=== PATIENT | female | born 1940 | race Caucasian/White ===

== ENCOUNTER 2016-09-29 17:07 | Inpatient (IN) | payer MEDICARE ==
[2016-09-29] MEDS ORDERED: IPRATROPIUM-ALBUTEROL 3 ML NEB INHALATION STA (17:40)
--- NOTE | 2016-09-29 17:40 | ED ---
URI HPI - General Chief Complaint: Upper Respiratory Infection Stated Complaint: weakness Time Seen by Provider: 09/29/16 17:29 Source: patient, family Mode of arrival: wheelchair Limitations: no limitations - History of Present Illness Initial Comments: Patient is a 75-year-old female past history diabetes, Parkinson's disease, hypertension presenting with cough and shortness of breath for the past 4 days. Patient denies any sputum production. Patient lives with daughter who is a smoker in the basement. Patient has no history of lung disease including asthma or COPD. No history of smoking. Patient denies fever, chills, chest pain, nausea, vomiting, diarrhea. Patient denies history of DVT/PE, recent travel/trauma/surgery. Patient denies history of cancer or estrogen supplement. Patient saw her PCP 3 days ago who started her on a Z-Jason and cough syrup. Patient is not getting better so follow-up in the ER. - Related Data Home Medications Medication Instructions Recorded Confirmed Azithromycin [Zithromax Z-pack] 0 mg PO DIRECTED 09/29/16 09/29/16 Benazepril [Lotensin] 10 mg PO DAILY 09/29/16 09/29/16 Gabapentin [Neurontin] 300 mg PO BID 09/29/16 09/29/16 Levothyroxine Sodium [Synthroid] 150 mcg PO DAILY 09/29/16 09/29/16 Metoprolol Tartrate 25 mg PO BID 09/29/16 09/29/16 Naproxen [Naprosyn] 375 mg PO Q12HR 09/29/16 09/29/16 Simvastatin [Zocor] 20 mg PO HS 09/29/16 09/29/16 Zolpidem [Ambien] 5 mg PO HS PRN 09/29/16 09/29/16 glipiZIDE [Glucotrol] 5 mg PO BID 09/29/16 09/29/16 metFORMIN HCL [metFORMIN HCL ER] 1,000 mg PO BID 09/29/16 09/29/16 rOPINIRole HCL [Requip] 1 mg PO TID 09/29/16 09/29/16 Allergies Allergy/AdvReac Type Severity Reaction Status Date / Time No Known Allergies Allergy Verified 09/29/16 18:00 Review of Systems ROS Statement: Those systems with pertinent positive or pertinent negative responses have been documented in the HPI. Constitutional: No fever and no chills. HENT: No congestion, no rhinorrhea and no sore throat. Eyes: No discharge and no redness. Respiratory: +cough and +shortness of breath. Cardiovascular: No chest pain and no palpitations. Gastrointestinal: No nausea, no vomiting, no abdominal pain and no diarrhea. Genitourinary: No dysuria and no hematuria. Musculoskeletal: No back pain and no arthralgias. Skin: No pallor and no rash. Neurological: No dizziness and No headaches. ROS Other: All systems not noted in ROS Statement are negative. Past Medical History Past Medical History: Diabetes Mellitus, Hypertension Additional Past Medical History / Comment(s): parkinsons, neuropathy History of Any Multi-Drug Resistant Organisms: None Reported Additional Past Surgical History / Comment(s): valve replacement, bilateral cataract Past Psychological History: No Psychological Hx Reported Smoking Status: Never smoker Past Alcohol Use History: None Reported Past Drug Use History: None Reported General Exam - General Exam Comments Initial Comments: Constitutional: Patient appears well-developed and well-nourished. No distress. Head: Normocephalic and atraumatic. Eyes: Conjunctivae and EOM are normal. Right eye exhibits no discharge. Left eye exhibits no discharge. No scleral icterus. Neck: Normal range of motion. Neck supple. Cardiovascular: Normal rate and regular rhythm. No murmur heard. Pulmonary/Chest: Effort normal and breath sounds normal. No respiratory distress. +wheezes. Abdominal: Soft. No distension. There is no tenderness. There is no rebound and no guarding. Musculoskeletal: Normal range of motion. No edema or tenderness. Neurological: Patient alert and oriented to person, place, and time. Skin: Skin is warm and dry. Not diaphoretic. Nursing notes and vitals reviewed. Limitations: no limitations Course Vital Signs 09/29/16 09/29/16 09/29/16 17:18 17:24 18:15 Temperature 98.4 F Pulse Rate 79 80 Respiratory 20 Rate Blood Pressure 157/70 O2 Sat by Pulse 91 L 95 Oximetry 09/29/16 09/29/16 19:09 19:12 Temperature Pulse Rate 82 84 Respiratory 16 Rate Blood Pressure 149/68 O2 Sat by Pulse 91 L 100 Oximetry - Reevaluation(s) Reevaluation #1: 09/29/16 17:47 Patient ambulatory in the hallway with pulse ox was 95% on room air. Reevaluation #2: 09/29/16 18:38 Patient given breathing treatments and on auscultation right lower lobe is now having crackles. Blood cultures, CBC, BMP, lactic acid, flu ordered and nurse updated. Medical Decision Making - Medical Decision Making Patient is a 75-year-old female with history of diabetes, Parkinson's disease, hypertension presenting with shortness of breath and cough for the past 4 days. Patient was started on azithromycin by her PCP 3 days ago and is not improving. Patient was ambulated in the hallway with pulse ox of 95%. Patient was wheezing on examination and with breathing treatments - breath sounds were then coarse crackles bilateral. CBC is without leukocytosis. BMP shows an elevated BUN of 27. Influenza A is positive. Chest x-ray shows bilateral patchy infiltrates. Patient was started on Levaquin and Tamiflu. Patient was resting comfortably in bed. Course of stay improved and requires hospitalization for CURB-65 score of 2 and failed outpatient treatment. Denies pain. Discussed physical exam and diagnostic tests with patient. Questions answered and patient is agreeable to staying in the hospital. Discussed H&P and pertinent diagnostic tests with admitting physician who agrees with plan and accepts admission of patient. - Lab Data Result diagrams: 09/29/16 19:10 09/29/16 18:50 Lab Results 09/29/16 09/29/16 09/29/16 Range/Units 18:50 18:50 18:50 WBC (3.8-10.6) k/uL RBC (3.80-5.40) m/uL Hgb (11.4-16.0) gm/dL Hct (34.0-46.0) % MCV (80.0-100.0) fL MCH (25.0-35.0) pg MCHC (31.0-37.0) g/dL RDW (11.5-15.5) % Plt Count (150-450) k/uL Neutrophils % % Lymphocytes % % Monocytes % % Eosinophils % % Basophils % % Neutrophils # (1.3-7.7) k/uL Lymphocytes # (1.0-4.8) k/uL Monocytes # (0-1.0) k/uL Eosinophils # (0-0.7) k/uL Basophils # (0-0.2) k/uL Sodium 140 (137-145) mmol/L Potassium 5.0 (3.5-5.1) mmol/L Chloride 105 (98-107) mmol/L Carbon Dioxide 25 (22-30) mmol/L Anion Gap 10 mmol/L BUN 27 H (7-17) mg/dL Creatinine 0.80 (0.52-1.04) mg/dL Est GFR (MDRD) Af Amer >60 (>60 ml/min/1.73 sqM) Est GFR (MDRD) Non-Af >60 (>60 ml/min/1.73 sqM) Glucose 166 H (74-99) mg/dL Plasma Lactic Acid Wild 1.3 (0.7-2.0) mmol/L Calcium 9.1 (8.4-10.2) mg/dL Influenza Type A RNA Detected H (Not Detectd) Influenza Type B (PCR) Not Detected (Not Detectd) 09/29/16 Range/Units 19:10 WBC 5.7 (3.8-10.6) k/uL RBC 3.87 (3.80-5.40) m/uL Hgb 11.6 (11.4-16.0) gm/dL Hct 35.8 (34.0-46.0) % MCV 92.5 (80.0-100.0) fL MCH 29.9 (25.0-35.0) pg MCHC 32.3 (31.0-37.0) g/dL RDW 13.1 (11.5-15.5) % Plt Count 155 (150-450) k/uL Neutrophils % 51 % Lymphocytes % 35 % Monocytes % 8 % Eosinophils % 1 % Basophils % 0 % Neutrophils # 2.9 (1.3-7.7) k/uL Lymphocytes # 2.0 (1.0-4.8) k/uL Monocytes # 0.5 (0-1.0) k/uL Eosinophils # 0.1 (0-0.7) k/uL Basophils # 0.0 (0-0.2) k/uL Sodium (137-145) mmol/L Potassium (3.5-5.1) mmol/L Chloride (98-107) mmol/L Carbon Dioxide (22-30) mmol/L Anion Gap mmol/L BUN (7-17) mg/dL Creatinine (0.52-1.04) mg/dL Est GFR (MDRD) Af Amer (>60 ml/min/1.73 sqM) Est GFR (MDRD) Non-Af (>60 ml/min/1.73 sqM) Glucose (74-99) mg/dL Plasma Lactic Acid Wild (0.7-2.0) mmol/L Calcium (8.4-10.2) mg/dL Influenza Type A RNA (Not Detectd) Influenza Type B (PCR) (Not Detectd) Disposition Clinical Impression: Pneumonia, Influenza A Disposition: ADMITTED IP TO THIS HOSP Condition: Good Referrals: Deandre Bartholomew MD [Primary Care Provider] - 1-2 days Decision to Admit Reason: Admit from EC
--- NOTE | 2016-09-29 18:05 | XR ---
EXAMINATION TYPE: XR chest 2V DATE OF EXAM: 09/29/2016 5:50 PM COMPARISON: 06/12/2013 HISTORY: 75-year-old female with pain TECHNIQUE: PA and lateral views FINDINGS: Heart is normal size. Median sternotomy wires with prosthetic aortic valve. Mild diffuse interstitial prominence and peribronchial cuffing centrally similar to slightly more situated from prior exam. No consolidation or pleural effusion. IMPRESSION: Some interstitial prominence and central peribronchial cuffing. Correlate for bronchitis, chronic ast hma, or atypical pneumonias.
[2016-09-29] MEDS ORDERED: SODIUM CHLORIDE 0.9% 1,000 ML IV STA (18:27)
[2016-09-29 19:08] LABS: Anion Gap 10 mmol/L; Blood Urea Nitrogen 27 mg/dL (7-17); Calcium 9.1 mg/dL (8.4-10.2); Carbon Dioxide 25 mmol/L (22-30); Chloride 105 mmol/L (98-107); Glucose 166 mg/dL (74-99); Non-African American GFR(MDRD) >60 (>60 ml/min/1.73 sqM); Sodium 140 mmol/L (137-145)
[2016-09-29 19:18] LABS: Basophils % (A) 0 %; CH 30.5; CHCM 33.2; Eosinophils # (A) 0.1 k/uL (0-0.7); Eosinophils % (A) 1 %; HCT 35.8 % (34.0-46.0); HDW 2.95; HGB 11.6 gm/dL (11.4-16.0); Luc # (Auto) 0.19; Luc % (Auto) 3; Lymphocytes % (A) 35 %; MCH 29.9 pg (25.0-35.0); MCHC 32.3 g/dL (31.0-37.0); MCV 92.5 fL (80.0-100.0); Mean Platelet Volume 7.9; Monocytes # (A) 0.5 k/uL (0-1.0); Monocytes % (A) 8 %; Neutrophils # (A) 2.9 k/uL (1.3-7.7); Neutrophils % (A) 51 %; RBC 3.87 m/uL (3.80-5.40); RDW 13.1 % (11.5-15.5); WBC 5.7 k/uL (3.8-10.6); WBC (Perox) 5.65
[2016-09-29] MEDS ORDERED: NALOXONE 0.4 MG/ML 1 ML VIAL IV PRN (19:20)
[2016-09-29] MEDS ORDERED: ACETAMINOPHEN TAB 325 MG TAB PO PRN (19:20)
[2016-09-29] MEDS ORDERED: SODIUM CHLORIDE 0.9% 1,000 ML IV ONE (19:20)
[2016-09-29] MEDS ORDERED: LEVOFLOXACIN 750MG-D5W PMX 750 MG in DEXTROSE/WATER 1 150ML.BAG IVPB STA (19:24)
[2016-09-29] MEDS: OSELTAMIVIR 75 MG CAP PO SCH (19:28)
[2016-09-29 21:10] LABS: Glucose,Whole Blood 165 mg/dL (75-99)
[2016-09-29] MEDS ORDERED: ZOLPIDEM 5 MG TAB PO PRN (22:20)
[2016-09-29] MEDS: LISINOPRIL 10 MG TAB PO SCH (23:08)
[2016-09-30] MEDS: LEVOTHYROXINE 75 MCG TAB PO SCH (06:42)
[2016-09-30 07:33] LABS: Glucose,Whole Blood 128 mg/dL (75-99)
[2016-09-30] MEDS: IPRATROPIUM-ALBUTEROL 3 ML NEB INHALATION PRN ×4 (08:25→21:02)
[2016-09-30] MEDS: metFORMIN 500 MG TAB PO SCH ×2 (09:33→17:50)
[2016-09-30] MEDS: OSELTAMIVIR 75 MG CAP PO SCH ×2 (09:34→21:35)
[2016-09-30] MEDS: GABAPENTIN 300 MG CAP PO SCH ×2 (09:34→20:50)
[2016-09-30] MEDS: LISINOPRIL 10 MG TAB PO SCH (09:34)
[2016-09-30] MEDS: ASPIRIN 325 MG TAB PO SCH (09:34)
[2016-09-30] MEDS: glipiZIDE 5 MG TAB PO SCH ×2 (09:34→17:50)
[2016-09-30] MEDS: METOPROLOL TARTRATE 25 MG TAB PO SCH ×2 (09:34→20:50)
[2016-09-30 12:04] LABS: Glucose,Whole Blood 184 mg/dL (75-99)
[2016-09-30 16:56] LABS: Glucose,Whole Blood 169 mg/dL (75-99)
[2016-09-30] MEDS: ATORVASTATIN 10 MG TAB PO SCH (20:50)
[2016-09-30 21:53] LABS: Glucose,Whole Blood 220 mg/dL (75-99)
[2016-10-01] MEDS: guaiFENesin-DM 100-10MG/5ML 10 ML CUP PO PRN ×3 (04:30→21:59)
--- NOTE | 2016-10-01 06:19 | HP ---
DATE OF ADMISSION: DATE OF SERVICE: 09/30/2016 CHIEF COMPLAINT: Cough and difficulty in breathing. HISTORY OF PRESENT ILLNESS: Ms. Thorne is a 75-year-old female with a past medical history of hypothyroidism, hypertension, hyperlipidemia, coming into the hospital with a chief complaint of cough and difficulty in breathing for the past one week. Patient states that she has been having cough with some sputum production and also difficulty in breathing. Patient has some fevers on and off, but denies having any chills or rigors. Patient denies having any chest pain. No palpitations. Denies having any nausea, vomiting, or diarrhea. No history of recent travel. The patient states that she was seen by her PCP 3 days back and was started on Z-Jason but states her symptoms have not been getting better and so she was brought into the ER for further evaluation. The patient was tested positive for influenza A. REVIEW OF SYSTEMS: All 13 review of systems are done and negative except for the ones mentioned in the HPI. Past medical history is significant for hypertension, hypothyroidism, Parkinson's disease. PAST SURGICAL HISTORY: Positive for aortic valve replacement. ALLERGIES: No known drug allergies. PATIENT'S HOME MEDICATIONS: 1. Ambien 5 mg p.o. q.h.s. 2. Requip 1 mg p.o. 3 times a day. 3. Naproxen 375 p.o. q.12 hours. 4. Benazepril 10 mg p.o. daily. 5. Glipizide 5 mg p.o. b.i.d. 6. ( ) 7. Metoprolol 25 mg p.o. b.i.d. 8. Z-pack. 9. Metformin 1000 mg p.o. b.i.d. 10. Gabapentin 300 mg p.o. b.i.d. 11. Levothyroxine 150 mcg p.o. daily. 12. Aspirin 325 mg p.o. daily. SOCIAL HISTORY: Never a smoker. Occasional alcohol. No history of intravenous drug abuse. FAMILY HISTORY: Positive for myocardial infarction in her mother who at the age of 89. On examination, patient's vital signs: Temperature at the time of admission 98.4, heart rate 79, respiratory rate 20, blood pressure 157/70, saturating at 91% on room air. GENERAL EXAMINATION: Patient appears to be no acute distress. HEAD: Atraumatic, normocephalic. EYES: Pupils round and reactive to light. NECK: No JVD. No thyromegaly. CARDIOVASCULAR: S1 and S2 heard. LUNGS: Coarse breath sounds in all lung lloyd. No wheezes. ABDOMEN: Soft, nontender. Bowel sounds are positive. EXTREMITIES: No edema. No cyanosis. No clubbing. Peripheral pulses felt. [employer]: Alert, awake, oriented x3. No focal neurological deficits. SKIN: No rash. PSYCHIATRIC: Appropriate mood and affect. PATIENT'S LABS: White count of 5.7, hemoglobin is 11.6, platelets 155. Sodium 140, potassium 5, chloride 105, bicarb 25, BUN 27, creatinine 0.80. Influenza A positive. Patient also had a chest x-ray showing interstitial prominence, which is to correlate with bronchitis, asthma and atypical pneumonia. ASSESSMENT AND PLAN: 1. Pneumonia with influenza A positive. Patient has been started on Tamiflu. 2. Type 2 diabetes mellitus. 3. Hypertension. 4. Parkinson disease. 5. Aortic valve replacement done in 2010. 6. Hypothyroidism. 7. Obesity with body mass index of 38.4. PLAN: Plan is to continue the patient on Tamiflu, but if her symptoms of upper respiratory tract infection worsens, patient will benefit by adding levofloxacin as she failed treatment on Z-pack in the outpatient setting. But for now, we will continue with the current medication regimen and further recommendations to follow depending on the progress of the patient.
[2016-10-01] MEDS: LEVOTHYROXINE 75 MCG TAB PO SCH (06:23)
[2016-10-01 07:08] LABS: Glucose,Whole Blood 200 mg/dL (75-99)
[2016-10-01] MEDS: IPRATROPIUM-ALBUTEROL 3 ML NEB INHALATION PRN ×3 (07:30→21:01)
[2016-10-01] MEDS: metFORMIN 500 MG TAB PO SCH ×2 (08:42→17:05)
[2016-10-01] MEDS: ASPIRIN 325 MG TAB PO SCH (08:42)
[2016-10-01] MEDS: glipiZIDE 5 MG TAB PO SCH ×2 (08:42→17:05)
[2016-10-01] MEDS: GABAPENTIN 300 MG CAP PO SCH ×2 (08:42→21:54)
[2016-10-01] MEDS: METOPROLOL TARTRATE 25 MG TAB PO SCH ×2 (08:43→21:54)
[2016-10-01] MEDS: LISINOPRIL 10 MG TAB PO SCH (08:43)
[2016-10-01] MEDS: OSELTAMIVIR 75 MG CAP PO SCH ×2 (08:43→21:54)
[2016-10-01 10:59] LABS: Basophils % (A) 0 %; CH 30.5; CHCM 32.3; Eosinophils # (A) 0.1 k/uL (0-0.7); Eosinophils % (A) 1 %; HCT 34.8 % (34.0-46.0); HDW 2.91; Luc # (Auto) 0.07; Luc % (Auto) 1; Lymphocytes # (A) 0.8 k/uL (1.0-4.8); Lymphocytes % (A) 16 %; MCHC 31.6 g/dL (31.0-37.0); Mean Platelet Volume 7.6; Monocytes # (A) 0.3 k/uL (0-1.0); Monocytes % (A) 5 %; Neutrophils # (A) 3.9 k/uL (1.3-7.7); Neutrophils % (A) 76 %; RBC 3.66 m/uL (3.80-5.40); RDW 13.2 % (11.5-15.5); WBC 5.1 k/uL (3.8-10.6); WBC (Perox) 5.58
[2016-10-01 11:07] LABS: Anion Gap 11 mmol/L; Blood Urea Nitrogen 11 mg/dL (7-17); Calcium 8.8 mg/dL (8.4-10.2); Carbon Dioxide 25 mmol/L (22-30); Chloride 106 mmol/L (98-107); Glucose 238 mg/dL (74-99); Non-African American GFR(MDRD) >60 (>60 ml/min/1.73 sqM); Potassium 4.7 mmol/L (3.5-5.1); Sodium 142 mmol/L (137-145)
[2016-10-01 12:21] LABS: Glucose,Whole Blood 200 mg/dL (75-99)
[2016-10-01 16:50] LABS: Glucose,Whole Blood 161 mg/dL (75-99)
[2016-10-01 20:58] LABS: Glucose,Whole Blood 185 mg/dL (75-99)
[2016-10-01] MEDS: ATORVASTATIN 10 MG TAB PO SCH (21:54)
[2016-10-01 22:43] VITALS: RESP 18
--- NOTE | 2016-10-02 07:29 | PN ---
DATE OF SERVICE: 10/01/2016 INTERVAL HISTORY: Ms. Thorne is a 75-year-old female with a past medical history of hypothyroidism, hypertension, hyperlipidemia admitted to the hospital with a chief complaint of cough and difficulty in breathing for the past one week. Patient was tested positive for influenza A and has been started on Tamiflu. She has been getting breathing treatments and cough medication and she states that her breathing has improved. REVIEW OF SYSTEMS: CONSTITUTIONAL: States that her myalgias have improved and her weakness is better. RESPIRATORY: Difficulty in breathing is better, but still having dry cough, nonproductive. CARDIOVASCULAR: No chest pain or palpitations. GI: No abdominal pain, nausea, vomiting or diarrhea. : No dysuria or hematuria. Patient's medications have been reviewed. On examination, patient's vital signs: Temperature 97.1, heart rate 113, blood pressure 191/91, saturating at 92% on room air, respiratory rate is 18. GENERAL EXAMINATION: Patient is an elderly female sitting up in the bed, appears to be in no acute distress. HEAD: Atraumatic, normocephalic. EYES: Pupils round and reactive to light. NECK: No JVD. No thyromegaly. CARDIOVASCULAR: S1, S2 heard. LUNGS: The patient has coarse breath sounds in all lung lloyd and no wheezing, but breath sounds are better compared to yesterday. ABDOMEN: Soft, nontender. Bowel sounds positive. EXTREMITIES: No edema. No cyanosis. No clubbing. Peripheral pulses felt. PERMANENT W[employer]ER: Alert, awake, oriented x3. No focal deficits. SKIN: No rash. PSYCHIATRIC: Appropriate mood and affect. PATIENT'S LABS: White count of 5.1, hemoglobin is 11, platelets 175. Sodium 142, potassium 4.7, chloride 106, bicarb 25, BUN 11, creatinine 0.75. ASSESSMENT AND PLAN: 1. Pneumonia with influenza A positive. Patient's started on Tamiflu. 2. Type 2 diabetes mellitus. 3. Hypertension. 4. Parkinson disease. 5. Aortic valve replacement done in 2010. 6. Hypothyroidism. 7. Obesity with body mass index of 38.4. PLAN: The plan is to continue the patient on Tamiflu. Continue with her breathing treatments. Patient showed significant improvement in her symptoms and if stable can be discharged home tomorrow.
[2016-10-02] MEDS: LEVOTHYROXINE 75 MCG TAB PO SCH (07:47)
[2016-10-02 07:48] LABS: Glucose,Whole Blood 165 mg/dL (75-99)
[2016-10-02 07:57] VITALS: BP 159/89; TEMP 96.2
[2016-10-02] MEDS: glipiZIDE 5 MG TAB PO SCH (08:50)
[2016-10-02] MEDS: OSELTAMIVIR 75 MG CAP PO SCH (08:50)
[2016-10-02] MEDS: METOPROLOL TARTRATE 25 MG TAB PO SCH (08:51)
[2016-10-02] MEDS: LISINOPRIL 10 MG TAB PO SCH (08:51)
[2016-10-02] MEDS: metFORMIN 500 MG TAB PO SCH (08:51)
[2016-10-02] MEDS: ASPIRIN 325 MG TAB PO SCH (08:51)
[2016-10-02] MEDS: GABAPENTIN 300 MG CAP PO SCH (08:51)
[2016-10-02] MEDS: IPRATROPIUM-ALBUTEROL 3 ML NEB INHALATION PRN (10:35)
[2016-10-02 10:49] VITALS: PULSE 82
[2016-10-02 11:53] LABS: Glucose,Whole Blood 129 mg/dL (75-99)
--- NOTE | 2016-10-02 12:53 | XR ---
EXAMINATION TYPE: XR chest 2V DATE OF EXAM: 10/02/2016 12:36 PM COMPARISON: 09/29/2016 TECHNIQUE: PA and lateral views submitted. HISTORY: Valve replacement FINDINGS: Postsurgical change with cardiac valve replacement noted. Hypertrophic and degenerative change of the spine. Mild coarsened interstitium diffusely which is also noted on the previous exam. Arthropathy o f the shoulders noted. Subsegmental changes at the left lung base. IMPRESSION: 1. Interstitial process may been the basis of mild venous chronic congestion, bronchitis or interstit ial pneumonitis. 2. Cardiomegaly and left basilar atelectasis or early infiltrate.
--- NOTE | 2016-10-03 07:50 | DS ---
DATE OF ADMISSION: 09/29/2016 DATE OF DISCHARGE: 10/02/2016 The patient was admitted for influenza and pneumonia. The patient appears to have diffuse bilateral pneumonia. I have a high suspicion for secondary bacterial infection because of which I am discharging her on azithromycin. The patient has rhonchus breath sounds bilaterally with bilateral crackles on exam. Patient will be discharged on 3 more days of Tamiflu and azithromycin for 5 days. Patient was seen and examined on the day of discharge. Vitals are stable. PHYSICAL EXAMINATION: GENERAL: The patient is alert and oriented x3, not in any acute distress. Well developed, well nourished. HEENT: Pupils are round and equally reacting to light. EOMI. No scleral icterus. No conjunctival pallor. Normocephalic, atraumatic. No pharyngeal erythema. No thyromegaly. CARDIOVASCULAR: S1 and S2 present. No murmurs, rubs, or gallops. RESPIRATORY: As described in the interval history. ABDOMEN: Soft, nontender, nondistended, normoactive bowel sounds. No palpable organomegaly. MUSCULOSKELETAL: No joint swelling or deformity. EXTREMITIES: No cyanosis, clubbing, or pedal edema. NEUROLOGICAL: Gross neurological examination did not reveal any focal deficits. SKIN: No rashes. FINAL DIAGNOSES: 1. Influenza. 2. Pneumonia. 3. Type 2 diabetes mellitus. 4. Hypertension. 5. Parkinson's. 6. Aortic valve replacement. 7. Hypothyroidism. 8. Obesity with body mass index of 38.4. Patient will be discharged today. Please refer to my depart summary for further details of discharge medications. Activity as tolerated. Cardiac diet. Patient will follow up with Dr. Deandre Bartholomew on 08 of October at 11:45 a.m. Patient will also need diabetic 1800 calorie diet. Dietary counseling regarding obesity was provided. Patient is being discharged on Tamiflu and azithromycin. Patient received 2 days of Tamiflu here and patient will be discharged on 3 more days of Tamiflu. Spent greater than 35 minutes in total discharge process.
== END 2016-10-02 14:05 | disposition home or self-care (01) | DRG 195 ==
LOC: EC 17:07 → 4MS4W 19:20
PROVIDERS: ADMIT Internal Medicine; ATTEND Hospitalist
DX: J11.00 Influenza due to unidentified influenza virus with unspecified type of pneumonia (principal); E11.42 Type 2 diabetes mellitus with diabetic polyneuropathy; G20 Parkinson's disease; I10 Essential (primary) hypertension; Z95.2 Presence of prosthetic heart valve; E03.9 Hypothyroidism, unspecified; E66.9 Obesity, unspecified; Z68.38 Body mass index [BMI] 38.0-38.9, adult; Z71.3 Dietary counseling and surveillance; E78.5 Hyperlipidemia, unspecified; Z98.42 Cataract extraction status, left eye; Z98.41 Cataract extraction status, right eye; Z79.84 Long term (current) use of oral hypoglycemic drugs; Z79.82 Long term (current) use of aspirin; Z79.1 Long term (current) use of non-steroidal anti-inflammatories (NSAID); Z79.899 Other long term (current) drug therapy
CPT/HCPCS: 36415; 71020; 80048; 83605; 85025; 87040; 87502; 94640; 96365; 99284

== ENCOUNTER → 2018-05-05 | Outpatient (CLI) | payer MEDICARE ==
--- NOTE | 2018-05-05 10:38 | US ---
EXAMINATION TYPE: US carotid duplex BILAT DATE OF EXAM: 05/05/2018 COMPARISON: US CLINICAL HISTORY: H53.2 Vertical Diplopia. EXAM MEASUREMENTS: RIGHT: Peak Systolic Velocity (PSV) cm/sec ----- Right CCA: 63.4 ----- Right ICA: 92.1 ----- Right ECA: 88.8 ICA/CCA ratio: 1.5 RIGHT: End Diastole cm/sec ----- Right CCA: 11.0 ----- Right ICA: 29.3 ----- Right ECA: 0.0 LEFT: Peak Systolic Velocity (PSV) cm/sec ----- Left CCA: 71.2 ----- Left ICA: 103.1 ----- Left ECA: 82.2 ICA/CCA ratio: 1.4 LEFT: End Diastole cm/sec ----- Left CCA: 18.0 ----- Left ICA: 33.7 ----- Left ECA: 0.0 VERTEBRALS (direction of flow): Right Vertebral: Antegrade Left Vertebral: Antegrade Rhythm: Arrhythmia No significant stenosis seen, no elevated velocities, mild bilateral plaque noted. IMPRESSION: 1. Mild atherosclerotic plaque with no significant hemodynamic stenosis. 2. Cardiac dysrhythmia. Criteria for Assigning % of Stenosis / Diameter reduction (Estimation based on the indirect measurements of the internal carotid artery velocities (ICA PSV). 1. Normal (no stenosis)=ICA PSV < 125 cm/s: ratio < 2.0: ICA EDV<40 cm/s. 2. Less than 50% stenosis=ICA PSV < 125 cm/s: ratio < 2.0: ICA EDV<40 cm/s. 3. 50 to 69% stenosis=ICA PSV of 125 to 230 cm/s: ration 2.0 ? 4.0: ICA EDV 40-100 cm/s. 4. Greater than 70% stenosis to near occlusion= ICA PSV > 230 cm/s: ratio > 4.0: ICA EDV > 100 cm/s. 5. Near occlusion= ICA PSV velocities may be low or undetectable: variable ratio and ICA EDV. 6. Total occlusion=unable to detect flow.
== END ==
LOC: RADUSWWP 09:43
PROVIDERS: ATTEND Psychiatry & Neurology Neurology
DX: I70.90 Unspecified atherosclerosis (principal); I49.9 Cardiac arrhythmia, unspecified
CPT/HCPCS: 93880

== ENCOUNTER 2019-01-05 11:28 | Inpatient (IN) | payer MEDICARE ==
[2019-01-05 11:39] LABS: Glucose,Whole Blood 120 mg/dL (75-99)
[2019-01-05] MEDS ORDERED: ASPIRIN 81 MG PO STA (11:43)
[2019-01-05] MEDS ORDERED: NITROGLYCERIN OINT 1 INCH/GM PACKET TOPICAL STA ×2 (11:43→13:49)
--- NOTE | 2019-01-05 11:45 | ED ---
General Adult HPI - General Chief complaint: Chest Pain Stated complaint: chest pain Time Seen by Provider: 01/05/19 11:40 Source: patient, RN notes reviewed Mode of arrival: ambulatory Limitations: no limitations - History of Present Illness Initial comments: This a 78-year-old female presents emergency department with past medical history significant for bypass surgery and had a valve replaced as well. Patient comes into the emergency department today because she states she's been short of breath over the weekend and it continues on today per patient states associated with a short of breath has been intermittent chest pressure. Patient states exertion makes the shortness of breath worse but however it does not make the chest pressure worse. Patient states she's also noted increased edema in her feet. Patient denies any recent fever chills or cough. Patient denies any palpitations. Patient denies any radiation of the pain. Patient denies any diaphoretic episodes. Patient denies nausea vomiting diarrhea. Patient denies any abdominal pain at this time per patient denies lightheadedness dizziness or near syncopal episode. - Related Data Home Medications Medication Instructions Recorded Confirmed Aspirin 325 mg PO DAILY 09/29/16 01/05/19 Gabapentin [Neurontin] 300 mg PO BID 09/29/16 01/05/19 Levothyroxine Sodium [Synthroid] 150 mcg PO DAILY 09/29/16 01/05/19 Metoprolol Tartrate 25 mg PO TID 09/29/16 01/05/19 Simvastatin [Zocor] 20 mg PO HS 09/29/16 01/05/19 glipiZIDE [Glucotrol] 5 mg PO TID 09/29/16 01/05/19 Carbidopa-Levodopa 25-100 mg 1 tab PO QID 01/05/19 01/05/19 [Sinemet 25-100] Furosemide [Lasix] 20 mg PO DAILY 01/05/19 01/05/19 Naproxen [Naprosyn] 500 mg PO Q12HR 01/05/19 01/05/19 Potassium Chloride [Klor-Con 10] 10 meq PO BID 01/05/19 01/05/19 metFORMIN HCL [Glucophage] 1,000 mg PO BID 01/05/19 01/05/19 Allergies Allergy/AdvReac Type Severity Reaction Status Date / Time No Known Allergies Allergy Verified 01/05/19 11:47 Review of Systems ROS Statement: Those systems with pertinent positive or pertinent negative responses have been documented in the HPI. ROS Other: All systems not noted in ROS Statement are negative. Past Medical History Past Medical History: Diabetes Mellitus, Hypertension Additional Past Medical History / Comment(s): parkinsons, neuropathy History of Any Multi-Drug Resistant Organisms: None Reported Additional Past Surgical History / Comment(s): aortic valve replacement 2010, bilateral cataract Past Anesthesia/Blood Transfusion Reactions: No Reported Reaction Past Psychological History: No Psychological Hx Reported Smoking Status: Never smoker Past Alcohol Use History: None Reported Past Drug Use History: None Reported - Past Family History Father Family Medical History: Myocardial Infarction ([place]) Mother Additional Family Medical History / Comment(s): in her sleep at 88 General Exam - General Exam Comments Initial Comments: GENERAL: Patient is well-developed and well-nourished. Patient is nontoxic and well- hydrated and is in mild distress. ENT: Neck is soft and supple. No significant lymphadenopathy is noted. Oropharynx is clear. Moist mucous membranes. Neck has full range of motion without vanessa citing any pain. EYES: The sclera were anicteric and conjunctiva were pink and moist. Extraocular movements were intact and pupils were equal round and reactive to light. Eyelids were unremarkable. PULMONARY: Patient has decreased breath sounds in the left base with some crackles. CARDIOVASCULAR: There is a regular rate and rhythm without any murmurs gallops or rubs. ABDOMEN: Soft and nontender with normal bowel sounds. No palpable organomegaly was noted. There is no palpable pulsatile mass. SKIN: Skin is clear with no lesions or rashes and otherwise unremarkable. NEUROLOGIC: Patient is alert and oriented x3. Cranial nerves II through XII are grossly intact. Motor and sensory are also intact. Normal speech, volume and content. Symmetrical smile. MUSCULOSKELETAL: Normal extremities with adequate strength and full range of motion. 2+ edema bilateral LYMPHATICS: No significant lymphadenopathy is noted PSYCHIATRIC: Normal psychiatric evaluation. Limitations: no limitations Course Vital Signs 01/05/19 11:30 Temperature 97.6 F Pulse Rate 84 Respiratory 22 Rate Blood Pressure 159/68 O2 Sat by Pulse 96 Oximetry Medical Decision Making - Medical Decision Making EKG shows sinus rhythm at 60 bpm OH interval is 222 QRS is 142 QT interval is 460 QTC is 497. Patient's EKG shows no ST segment elevation or depression or T wave abnormalities are noted. Chest x-ray shows acute pulmonary edema Patient received Lasix nitro paste emergency department. I spoke with Dr. Kaufman she agreed to admit the patient admitted the patient I wrote admitting orders. I continued Lasix and Nitropaste on the floor. - Lab Data Result diagrams: 01/05/19 11:57 01/05/19 12:51 Lab Results 01/05/19 01/05/19 01/05/19 Range/Units 11:38 11:57 11:57 WBC 8.3 (3.8-10.6) k/uL RBC 3.88 (3.80-5.40) m/uL Hgb 12.6 (11.4-16.0) gm/dL Hct 39.9 (34.0-46.0) % MCV 102.7 H (80.0-100.0) fL MCH 32.5 (25.0-35.0) pg MCHC 31.6 (31.0-37.0) g/dL RDW 15.5 (11.5-15.5) % Plt Count 225 (150-450) k/uL Neutrophils % 76 % Lymphocytes % 14 % Monocytes % 5 % Eosinophils % 2 % Basophils % 0 % Neutrophils # 6.3 (1.3-7.7) k/uL Lymphocytes # 1.2 (1.0-4.8) k/uL Monocytes # 0.4 (0-1.0) k/uL Eosinophils # 0.2 (0-0.7) k/uL Basophils # 0.0 (0-0.2) k/uL Hypochromasia Slight Macrocytosis Slight PT (9.0-12.0) sec INR (<1.2) APTT (22.0-30.0) sec Sodium 143 (137-145) mmol/L Potassium 6.1 H* (3.5-5.1) mmol/L Chloride 109 H (98-107) mmol/L Carbon Dioxide 26 (22-30) mmol/L Anion Gap 8 mmol/L BUN 33 H (7-17) mg/dL Creatinine 1.35 H (0.52-1.04) mg/dL Est GFR (CKD-EPI)AfAm 43 (>60 ml/min/1.73 sqM) Est GFR (CKD-EPI)NonAf 38 (>60 ml/min/1.73 sqM) Glucose 112 H (74-99) mg/dL POC Glucose (mg/dL) 120 H (75-99) mg/dL POC Glu Methods Specialist Engineer ID Marie Johnson Calcium 9.6 (8.4-10.2) mg/dL Magnesium 2.3 (1.6-2.3) mg/dL Total Bilirubin 0.6 (0.2-1.3) mg/dL AST 19 (14-36) U/L ALT 13 (9-52) U/L Alkaline Phosphatase 54 (38-126) U/L Troponin I (0.000-0.034) ng/mL NT-Pro-B Natriuret Pep pg/mL Total Protein 6.8 (6.3-8.2) g/dL Albumin 4.1 (3.5-5.0) g/dL Lipase 431 H (23-300) U/L 01/05/19 01/05/19 01/05/19 Range/Units 11:57 11:57 11:57 WBC (3.8-10.6) k/uL RBC (3.80-5.40) m/uL Hgb (11.4-16.0) gm/dL Hct (34.0-46.0) % MCV (80.0-100.0) fL MCH (25.0-35.0) pg MCHC (31.0-37.0) g/dL RDW (11.5-15.5) % Plt Count (150-450) k/uL Neutrophils % % Lymphocytes % % Monocytes % % Eosinophils % % Basophils % % Neutrophils # (1.3-7.7) k/uL Lymphocytes # (1.0-4.8) k/uL Monocytes # (0-1.0) k/uL Eosinophils # (0-0.7) k/uL Basophils # (0-0.2) k/uL Hypochromasia Macrocytosis PT 10.8 (9.0-12.0) sec INR 1.0 (<1.2) APTT 23.3 (22.0-30.0) sec Sodium (137-145) mmol/L Potassium (3.5-5.1) mmol/L Chloride (98-107) mmol/L Carbon Dioxide (22-30) mmol/L Anion Gap mmol/L BUN (7-17) mg/dL Creatinine (0.52-1.04) mg/dL Est GFR (CKD-EPI)AfAm (>60 ml/min/1.73 sqM) Est GFR (CKD-EPI)NonAf (>60 ml/min/1.73 sqM) Glucose (74-99) mg/dL POC Glucose (mg/dL) (75-99) mg/dL POC Glu Methods Specialist Engineer ID Calcium (8.4-10.2) mg/dL Magnesium (1.6-2.3) mg/dL Total Bilirubin (0.2-1.3) mg/dL AST (14-36) U/L ALT (9-52) U/L Alkaline Phosphatase (38-126) U/L Troponin I <0.012 (0.000-0.034) ng/mL NT-Pro-B Natriuret Pep 5610 pg/mL Total Protein (6.3-8.2) g/dL Albumin (3.5-5.0) g/dL Lipase (23-300) U/L 01/05/19 Range/Units 12:51 WBC (3.8-10.6) k/uL RBC (3.80-5.40) m/uL Hgb (11.4-16.0) gm/dL Hct (34.0-46.0) % MCV (80.0-100.0) fL MCH (25.0-35.0) pg MCHC (31.0-37.0) g/dL RDW (11.5-15.5) % Plt Count (150-450) k/uL Neutrophils % % Lymphocytes % % Monocytes % % Eosinophils % % Basophils % % Neutrophils # (1.3-7.7) k/uL Lymphocytes # (1.0-4.8) k/uL Monocytes # (0-1.0) k/uL Eosinophils # (0-0.7) k/uL Basophils # (0-0.2) k/uL Hypochromasia Macrocytosis PT (9.0-12.0) sec INR (<1.2) APTT (22.0-30.0) sec Sodium 143 (137-145) mmol/L Potassium 6.2 H* (3.5-5.1) mmol/L Chloride 110 H (98-107) mmol/L Carbon Dioxide 27 (22-30) mmol/L Anion Gap 6 mmol/L BUN 33 H (7-17) mg/dL Creatinine 1.35 H (0.52-1.04) mg/dL Est GFR (CKD-EPI)AfAm 43 (>60 ml/min/1.73 sqM) Est GFR (CKD-EPI)NonAf 38 (>60 ml/min/1.73 sqM) Glucose 96 (74-99) mg/dL POC Glucose (mg/dL) (75-99) mg/dL POC Glu Methods Specialist Engineer ID Calcium 9.7 (8.4-10.2) mg/dL Magnesium (1.6-2.3) mg/dL Total Bilirubin 0.6 (0.2-1.3) mg/dL AST 20 (14-36) U/L ALT 10 (9-52) U/L Alkaline Phosphatase 51 (38-126) U/L Troponin I (0.000-0.034) ng/mL NT-Pro-B Natriuret Pep pg/mL Total Protein 6.5 (6.3-8.2) g/dL Albumin 4.0 (3.5-5.0) g/dL Lipase (23-300) U/L Critical Care Time Critical Care Time: Yes Total Critical Care Time: 35 Disposition Clinical Impression: Hyperkalemia, Acute pulmonary edema Disposition: ADMITTED IP TO THIS HOSP Referrals: Deandre Bartholomew MD [Primary Care Provider] - 1-2 days Time of Disposition: 14:19
[2019-01-05 12:14] LABS: Basophils % (A) 0 %; Eosinophils # (A) 0.2 k/uL (0-0.7); Eosinophils % (A) 2 %; HCT 39.9 % (34.0-46.0); HGB 12.6 gm/dL (11.4-16.0); Hypochromasia Slight; Lymphocytes # (A) 1.2 k/uL (1.0-4.8); Lymphocytes % (A) 14 %; MCH 32.5 pg (25.0-35.0); MCHC 31.6 g/dL (31.0-37.0); MCV 102.7 fL (80.0-100.0); Macrocytosis Slight; Mean Platelet Volume 7.6; Monocytes # (A) 0.4 k/uL (0-1.0); Monocytes % (A) 5 %; Neutrophils # (A) 6.3 k/uL (1.3-7.7); Neutrophils % (A) 76 %; Platelet Count 225 k/uL (150-450); RBC 3.88 m/uL (3.80-5.40); RDW 15.5 % (11.5-15.5); WBC 8.3 k/uL (3.8-10.6)
[2019-01-05 12:24] LABS: Partial Thromboplastin Time 23.3 sec (22.0-30.0); Prothrombin Time 10.8 sec (9.0-12.0)
--- NOTE | 2019-01-05 12:25 | XR ---
EXAMINATION TYPE: XR chest 2V DATE OF EXAM: 01/05/2019 COMPARISON: Prior chest x-ray 10/02/2016 HISTORY: Chest pain, shortness of breath, low blood sugar TECHNIQUE: Frontal and lateral views of the chest are obtained. FINDINGS: Prominent lung volumes suggest underlying COPD. Patient is post median sternotomy and aort ic valve replacement. The heart is enlarged. There are cardiac leads. No evident pneumothorax or pleu ral effusion. Interstitium is mildly increased. Arthropathy in the shoulders is again noted. Patient is rotated. IMPRESSION: Correlate for possible pulmonary venous hypertension and interstitial edema. Follow-up s uggested.
[2019-01-05 12:28] LABS: Albumin 4.1 g/dL (3.5-5.0); Calcium 9.6 mg/dL (8.4-10.2); Magnesium 2.3 mg/dL (1.6-2.3); Total Bilirubin 0.6 mg/dL (0.2-1.3); Total Protein 6.8 g/dL (6.3-8.2)
[2019-01-05 12:41] LABS: Potassium 6.1 mmol/L (3.5-5.1)
[2019-01-05 13:16] LABS: Calcium 9.7 mg/dL (8.4-10.2); Total Bilirubin 0.6 mg/dL (0.2-1.3); Total Protein 6.5 g/dL (6.3-8.2)
[2019-01-05 13:32] LABS: Potassium 6.2 mmol/L (3.5-5.1)
[2019-01-05] MEDS ORDERED: FUROSEMIDE 10 MG/ML 10 ML VIAL IV STA (13:47)
[2019-01-05] MEDS ORDERED: ASPIRIN 325 MG TAB PO STA (14:22)
[2019-01-05] MEDS ORDERED: SODIUM POLYSTYRENE SULFONATE 15 GM/60 ML BOTTLE PO STA (15:28)
[2019-01-05] MEDS ORDERED: FUROSEMIDE 10 MG/ML 4 ML VIAL IV SCH (16:00)
[2019-01-05] MEDS ORDERED: ACETAMINOPHEN TAB 325 MG TAB PO PRN (17:53)
[2019-01-05] MEDS ORDERED: traMADol 50 MG TAB PO PRN (17:53)
[2019-01-05] MEDS ORDERED: MELATONIN 3 MG TABLET PO PRN (17:53)
[2019-01-05] MEDS ORDERED: ONDANSETRON 4 MG/2 ML VIAL IVP PRN (17:53)
[2019-01-05] MEDS ORDERED: NALOXONE 0.4 MG/ML 1 ML VIAL IV PRN (17:53)
[2019-01-05] MEDS ORDERED: NITROGLYCERIN OINT 1 INCH/GM PACKET TOPICAL SCH (18:00)
[2019-01-05] MEDS: CARBIDOPA-LEVODOPA 25-100 MG 1 EACH TAB PO SCH ×2 (18:58→20:59)
--- NOTE | 2019-01-05 19:35 | P.HPIM ---
History of Present Illness H&P Date: 01/05/19 Chief Complaint: shortness of breath patient is a 78-year-old female past medical history of diabetes mellitus type 2 with peripheral neuropathy controlled on oral medications, hypertension, hypothyroidism, and possible prior congestive heart failure who presented to the emergency department at the instruction of Dr. Low cough or shortness of breath. In the ER she underwent an extensive evaluation.her initial vital signs were within normal limits.initial laboratory analysis showed elevated potassium at 6.1, chronically elevated creatinine at 1.35, negative t roponin at 0.012, and an elevated BNP at 561. Lipase is mildly elevated at 431. Initial EKG showed probable right bundle branch block with GA prolongation at 222, no significant ST-T wave changes. Chest x-ray showed probable fluid overload. She was given a dose of aspirin and Lasix and nitro in the emergency department. Her breathing improved greatly. She has subsequently been admitted to the cardiac floor. Patient seen and examined at bedside in the emergency department. She reports that for the last 4 days she has had shortness of breath. It is worse at night when laying flat. She wakes up acutely dyspneic. She also has increasing shortness of breath when she has been walking. When her shortness of breath is severe her chest feels tight but this is not an overt pressor. She does describe an elephant sitting on her chest from this pressure. She states this only occurs when she is short of breath. She has had chronic lower extremity edema for approximately the last 6 months. She denies any significant weight gain or weight loss. She went to see Dr. Estrada for her follow-up on Parkinson's and told him her blood sugars have been in the 50s in the morning and she has been symptomatic. He decreased her Neurontin dose and sent told her to immediately call Dr. Low. She went to Dr. cm's office today he didn't EKG and saw concerning changes and therefore sent her into the emergency department. Patient reports that for the last several months she's had blood sugars in the 50s to 60s 4 out of 7 days upon waking. This is associated with dizziness, slurred speech, and blurry vision. She reports that just prior to this her glipizide was changed from morning doses to nighttime doses. She denies any other recent changes in medications. She reports not missing any medications. She also states that she started having lower extremity edema last summer. She had a chest x-ray but not an echocardiogram done and was told she had congestive heart failure. She was placed on Lasix at this time which seemed to help slightly. She has a history of a porcine aortic valve replacementwhich was done in 2010. She was on Coumadin for a while after this was taken off by Dr. Santiago. She states it has been approximately 8 years since she has seen a material handler 1st shift or cardiac surgeon. Review of Systems Pertinent positives and negatives as discussed in HPI, a complete review of systems was performed and all other systems are negative. Past Medical History Past Medical History: Diabetes Mellitus, Hypertension Additional Past Medical History / Comment(s): parkinsons, neuropathy, hypothyroidism, congestive heart failure, coronary artery disease with double bypass therapy, chronic kidney disease stage III History of Any Multi-Drug Resistant Organisms: None Reported Past Surgical History: Cholecystectomy Additional Past Surgical History / Comment(s): aortic valve replacement 2010with cardiac bypass surgery, bilateral cataract Past Anesthesia/Blood Transfusion Reactions: No Reported Reaction Past Psychological History: No Psychological Hx Reported Smoking Status: Never smoker Past Alcohol Use History: None Reported Past Drug Use History: None Reported Additional History: lives with her stepdaughter. Uses a walker at baseline. - Past Family History Father Family Medical History: Myocardial Infarction ([place]) Mother Additional Family Medical History / Comment(s): in her sleep at 89 Medications and Allergies Home Medications Medication Instructions Recorded Confirmed Type Aspirin 325 mg PO DAILY 09/29/16 01/05/19 History Gabapentin [Neurontin] 300 mg PO BID 09/29/16 01/05/19 History Levothyroxine Sodium [Synthroid] 150 mcg PO DAILY 09/29/16 01/05/19 History Metoprolol Tartrate 25 mg PO TID 09/29/16 01/05/19 History Simvastatin [Zocor] 20 mg PO HS 09/29/16 01/05/19 History glipiZIDE [Glucotrol] 5 mg PO TID 09/29/16 01/05/19 History Carbidopa-Levodopa 25-100 mg 1 tab PO QID 01/05/19 01/05/19 History [Sinemet 25-100] Furosemide [Lasix] 20 mg PO DAILY 01/05/19 01/05/19 History Naproxen [Naprosyn] 500 mg PO Q12HR 01/05/19 01/05/19 History Potassium Chloride [Klor-Con 10] 10 meq PO BID 01/05/19 01/05/19 History metFORMIN HCL [Glucophage] 1,000 mg PO BID 01/05/19 01/05/19 History Allergies Allergy/AdvReac Type Severity Reaction Status Date / Time No Known Allergies Allergy Verified 01/05/19 11:47 Physical Exam Osteopathic Statement: *. No significant issues noted on an osteopathic structural exam other than those noted in the History and Physical/Consult. Vitals: Vital Signs Temp Pulse Resp BP Pulse Ox 01/05/19 18:04 98.2 F 56 L 19 114/54 100 01/05/19 11:30 97.6 F 84 22 159/68 96 Intake and Output 01/05/19 01/05/19 01/05/19 06:59 14:59 22:59 Other: Weight 103.419 kg General: non toxic, no distress, appears at stated age, obese Derm: no unusual rashes/lesions no unusual ecchymoses, warm, dry Head: atraumatic, normocephalic, symmetric Eyes: EOMI, no lid lag, anicteric sclera, pupils equal round reactive to light ENT: Nose and ears atraumatic, no thrush, no pharyngeal erythema Neck: No thyromegaly, no cervical lymphadenopathy, trachea midline, supple Mouth: no lip lesion, mucus membranes moist Cardiovascular: S1S2 reg, no murmur, positive posterior tibial pulse bilateral, 3+ edema, capillary refill less than 2 seconds Lungs: decreased breath sounds, no rhonchi, no rales , no accessory muscle use Abdominal: soft, nontender to palpation, no guarding, no appreciable organomegaly, normal bowel sounds Ext: no gross muscle atrophy, muscle strength 5 out of 5 in all 4 extremities grossly, no contractures, Neuro: CN II-XI grossly intact, light touch intact all 4 extremities, poor finger to nose, + slight resting head tremor Psych: Alert, oriented, appropriate affect Results CBC & Chem 7: 01/05/19 11:57 01/05/19 12:51 Labs: Abnormal Lab Results - Last 24 Hours (Table) 01/05/19 01/05/19 01/05/19 Range/Units 11:38 11:57 11:57 MCV 102.7 H (80.0-100.0) fL Potassium 6.1 H* (3.5-5.1) mmol/L Chloride 109 H (98-107) mmol/L BUN 33 H (7-17) mg/dL Creatinine 1.35 H (0.52-1.04) mg/dL Glucose 112 H (74-99) mg/dL POC Glucose (mg/dL) 120 H (75-99) mg/dL Lipase 431 H (23-300) U/L 01/05/19 Range/Units 12:51 MCV (80.0-100.0) fL Potassium 6.2 H* (3.5-5.1) mmol/L Chloride 110 H (98-107) mmol/L BUN 33 H (7-17) mg/dL Creatinine 1.35 H (0.52-1.04) mg/dL Glucose (74-99) mg/dL POC Glucose (mg/dL) (75-99) mg/dL Lipase (23-300) U/L Comments: EKG is reviewed by myself reveals normal sinus rhythm in the hnormal access. No significant ST-T wave changes Chest x-ray: report reviewed, image reviewed (Cephalization consistent with congestive heart failure) Thrombosis Risk Factor Assmnt - DVT/VTE Prophylaxis DVT/VTE Prophylaxis: Pharmacologic Prophylaxis ordered Assessment and Plan Assessment: Probable acute exacerbation of CHF -Lasix 60 mg every 12, strict I's and O's, daily weights -Lopressor, lisinopril on hold secondary to hyperkalemia -Echocardiogram in a.m. -Cardiology consultation -Dietitian consultation -May be related to valvular disease as patient had a porcine aortic valve replacement approximately 8 years ago Hyperkalemia -Likely secondary to combination of potassium with lisinopril -Status post Kayexalate 30 mg 1, continue with Lasix -Repeat basic metabolic profile at 2100 -Telemetry Diabetes mellitus type 2 with hypoglycemia at home -Discontinue metformin and glipizide -Sliding-scale insulin -Check A1c -Plan would be to discharge off of glipizide but possibly continue metformin Hypertension, controlled -Lasix, metoprolol, lisinopril on hold secondary to hyperkalemia -Follow blood pressures Coronary artery disease -Continue daily aspirin and statin therapy Chronic kidney disease stage III -Creatinine at baseline of 1.3 -Lisinopril on hold secondary to hyperkalemia -Avoid additional nephrotoxic agents Parkinson's disease -Continue with Neurontin and Sinemet -Outpatient follow-up Dr. Estrada The patient is admitted with an anticipated greater than 2 midnight stay for evaluation of new onset congestive heart failure exacerbation. Surrogate decision-maker: Daughter Melvi CODE STATUS: DO NOT RESUSCITATE DVT prophylaxis: Lovenox Discussed with: Patient, family, ED nursing Anticipated discharge date: 48-[address]: With home health, telehealth A total of 65 minutes was spent on the care of this complex patient more than 50% of the time was spent in counseling and care coordination.
[2019-01-05 20:29] LABS: Glucose,Whole Blood 129 mg/dL (75-99)
[2019-01-05] MEDS: ATORVASTATIN 10 MG TAB PO SCH (20:58)
[2019-01-05] MEDS: GABAPENTIN 300 MG CAP PO SCH (20:58)
[2019-01-05] MEDS: METOPROLOL TARTRATE 25 MG TAB PO SCH (20:58)
[2019-01-05] MEDS: FUROSEMIDE 10 MG/ML 10 ML VIAL IV SCH (21:05)
[2019-01-05] MEDS: INSULIN ASPART (NovoLOG) 100 UNIT/ML VIAL SQ SCH (21:05)
[2019-01-05 22:58] LABS: Calcium 9.7 mg/dL (8.4-10.2); Potassium 4.8 mmol/L (3.5-5.1)
[2019-01-06] MEDS: LEVOTHYROXINE 75 MCG TAB PO SCH (06:18)
[2019-01-06 06:26] LABS: Glucose,Whole Blood 87 mg/dL (75-99)
[2019-01-06] MEDS: INSULIN ASPART (NovoLOG) 100 UNIT/ML VIAL SQ SCH ×4 (07:12→21:29)
[2019-01-06] MEDS: GABAPENTIN 300 MG CAP PO SCH ×2 (07:17→20:14)
[2019-01-06] MEDS: ENOXAPARIN 40 MG/0.4 ML SYRINGE SQ SCH (07:17)
[2019-01-06] MEDS: METOPROLOL TARTRATE 25 MG TAB PO SCH ×3 (07:17→20:15)
[2019-01-06] MEDS: FUROSEMIDE 10 MG/ML 10 ML VIAL IV SCH ×2 (07:17→20:15)
[2019-01-06] MEDS: CARBIDOPA-LEVODOPA 25-100 MG 1 EACH TAB PO SCH ×4 (07:17→20:15)
[2019-01-06 07:23] LABS: HCT 37.2 % (34.0-46.0); Hypochromasia Slight; MCH 32.6 pg (25.0-35.0); MCHC 32.3 g/dL (31.0-37.0); MCV 100.8 fL (80.0-100.0); Macrocytosis Slight; Mean Platelet Volume 7.2; Platelet Count 188 k/uL (150-450); RBC 3.69 m/uL (3.80-5.40); RDW 15.3 % (11.5-15.5); WBC 6.4 k/uL (3.8-10.6)
[2019-01-06 07:40] LABS: Calcium 9.1 mg/dL (8.4-10.2); Magnesium 2.2 mg/dL (1.6-2.3)
[2019-01-06] MEDS ORDERED: ASPIRIN 325 MG TAB PO SCH ×2 (09:00→14:23)
--- NOTE | 2019-01-06 10:08 | P.CRDCN ---
History of Present Illness Consult date: 01/06/19 Requesting physician: Orin Kaufman Consult reason: congestive heart failure Chief complaint: Shortness of breath and bilateral lower extremity edema History of present illness: This is a 78-year-old female with history of coronary artery disease and prior 2 vessel bypass along with tissue aortic valve replacement performed in 2010, history of hypertension, diabetes, hyperlipidemia, hypothyroidism, Parkinson's. Who presented to the hospital with symptoms of progressively worsening shortness of breath since Mother's Day weekend, she also states that she noticed an increase in her lower extremity edema. For this reason she came to the hospital for further evaluation and treatment. Blood pressure 138/60 with a heart rate in the 60s, 98% on 2 L of oxygen. White blood cell count 6.4, hemoglobin 12.0, platelet count 188. Sodium 142, potassium 5.0, BUN 30 and creatinine 1.2. Troponin 0.012. BNP level 5610. Chest x-ray shows pulmonary hypertension and interstitial edema. EKG shows normal sinus rhythm with first- degree AV block, nonspecific ST-T wave changes. Patient was initiated on IV Lasix in the emergency room, her weight today is down 4 kg, she's been diuresing well. At the time of my examination this morning, her breathing is stable, she sitting up in the chair at bedside, she was up with physical therapy earlier this morning. Echocardiogram with Doppler study was performed this morning and is yet pending. Past Medical History Past Medical History: Diabetes Mellitus, Hypertension Additional Past Medical History / Comment(s): parkinsons, neuropathy, hypothyroidism, congestive heart failure, coronary artery disease with double bypass therapy, chronic kidney disease stage III History of Any Multi-Drug Resistant Organisms: None Reported Past Surgical History: Cholecystectomy Additional Past Surgical History / Comment(s): aortic valve replacement 2010with cardiac bypass surgery, bilateral cataract Past Anesthesia/Blood Transfusion Reactions: No Reported Reaction Past Psychological History: No Psychological Hx Reported Smoking Status: Never smoker Past Alcohol Use History: None Reported Past Drug Use History: None Reported - Past Family History Father Family Medical History: Myocardial Infarction ([place]) Mother Additional Family Medical History / Comment(s): in her sleep at 89 Medications and Allergies Home Medications Medication Instructions Recorded Confirmed Type Aspirin 325 mg PO DAILY 09/29/16 01/05/19 History Gabapentin [Neurontin] 300 mg PO BID 09/29/16 01/05/19 History Levothyroxine Sodium [Synthroid] 150 mcg PO DAILY 09/29/16 01/05/19 History Metoprolol Tartrate 25 mg PO TID 09/29/16 01/05/19 History Simvastatin [Zocor] 20 mg PO HS 09/29/16 01/05/19 History glipiZIDE [Glucotrol] 5 mg PO TID 09/29/16 01/05/19 History Carbidopa-Levodopa 25-100 mg 1 tab PO QID 01/05/19 01/05/19 History [Sinemet 25-100] Furosemide [Lasix] 20 mg PO DAILY 01/05/19 01/05/19 History Naproxen [Naprosyn] 500 mg PO Q12HR 01/05/19 01/05/19 History Potassium Chloride [Klor-Con 10] 10 meq PO BID 01/05/19 01/05/19 History metFORMIN HCL [Glucophage] 1,000 mg PO BID 01/05/19 01/05/19 History Allergies Allergy/AdvReac Type Severity Reaction Status Date / Time No Known Allergies Allergy Verified 01/05/19 11:47 Physical Exam Vitals: Vital Signs Temp Pulse Pulse Resp BP BP Pulse Ox 01/06/19 08:00 68 18 01/06/19 07:58 94 L 01/06/19 07:23 97.7 F 68 18 139/62 98 01/06/19 04:00 97.6 F 75 18 114/53 90 L 01/06/19 00:00 97.9 F 74 17 95/42 88 L 01/05/19 20:00 98.4 F 91 18 117/54 91 L 01/05/19 18:04 98.2 F 56 L 19 114/54 100 01/05/19 11:30 97.6 F 84 22 159/68 96 Intake and Output 01/05/19 01/06/19 01/06/19 22:59 06:59 14:59 Intake Total 720 480 Output Total 1000 500 Balance -280 -500 480 Intake: Oral 720 480 Output: Urine 1000 500 Other: Voiding Method Toilet Toilet # Voids 2 Weight 99.7 kg PHYSICAL EXAMINATION: GENERAL: 78-year-old female in no acute distress at the time of my examination HEENT: Head is atraumatic, normocephalic. Pupils equal, round. Sclera anicteric. Conjunctiva are clear. Mucous membranes of the mouth are moist. Neck is supple. There is no elevated jugular venous pressure.No carotid bruit is heard. HEART EXAMNATION: heart S1-S2 a systolic murmur is heard. CHEST EXAMINATION: lungs reveal diminished air entry to bilateral bases ABDOMEN Soft, obese, notender. Bowel sounds are heard. No organomegaly noted. EXTREITIES: 2+ periperal pulses with 1+ evidence of peripheral edema and no calf tenderness noted]. NEUROLGIC patient i awake, alert and oriented 3 . Results 01/06/19 06:33 01/06/19 06:33 Cardiac Enzymes 01/05/19 01/05/19 01/05/19 Range/Units 11:57 11:57 12:51 AST 19 20 (14-36) U/L Troponin I <0.012 (0.000-0.034) ng/mL Coagulation 01/05/19 Range/Units 11:57 PT 10.8 (9.0-12.0) sec APTT 23.3 (22.0-30.0) sec CBC 01/05/19 01/06/19 Range/Units 11:57 06:33 WBC 8.3 6.4 (3.8-10.6) k/uL RBC 3.88 3.69 L (3.80-5.40) m/uL Hgb 12.6 12.0 (11.4-16.0) gm/dL Hct 39.9 37.2 (34.0-46.0) % Plt Count 225 188 (150-450) k/uL Comprehensive Metabolic Panel 01/05/19 01/05/19 01/05/19 Range/Units 11:57 12:51 21:30 Sodium 143 143 141 (137-145) mmol/L Potassium 6.1 H* 6.2 H* 4.8 (3.5-5.1) mmol/L Chloride 109 H 110 H 104 (98-107) mmol/L Carbon Dioxide 26 27 29 (22-30) mmol/L BUN 33 H 33 H 32 H (7-17) mg/dL Creatinine 1.35 H 1.35 H 1.33 H (0.52-1.04) mg/dL Glucose 112 H 96 95 (74-99) mg/dL Calcium 9.6 9.7 9.7 (8.4-10.2) mg/dL AST 19 20 (14-36) U/L ALT 13 10 (9-52) U/L Alkaline Phosphatase 54 51 (38-126) U/L Total Protein 6.8 6.5 (6.3-8.2) g/dL Albumin 4.1 4.0 (3.5-5.0) g/dL 01/06/19 Range/Units 06:33 Sodium 142 (137-145) mmol/L Potassium 5.0 (3.5-5.1) mmol/L Chloride 104 (98-107) mmol/L Carbon Dioxide 32 H (22-30) mmol/L BUN 30 H (7-17) mg/dL Creatinine 1.23 H (0.52-1.04) mg/dL Glucose 74 (74-99) mg/dL Calcium 9.1 (8.4-10.2) mg/dL AST (14-36) U/L ALT (9-52) U/L Alkaline Phosphatase (38-126) U/L Total Protein (6.3-8.2) g/dL Albumin (3.5-5.0) g/dL Current Medications Generic Name Dose Route Start Last Admin Trade Name Freq PRN Reason Stop Dose Admin Acetaminophen 650 mg 01/05/19 17:53 Tylenol Tab PO Q6HR PRN Mild Pain or Fever > 100.5 Aspirin 325 mg 01/06/19 09:00 01/06/19 07:17 Aspirin PO 325 mg DAILY AMEYA Administration Atorvastatin Calcium 10 mg 01/05/19 21:00 01/05/19 20:58 Lipitor PO 10 mg HS AMEYA Administration Carbidopa/Levodopa 1 each 01/05/19 18:00 01/06/19 07:17 Sinemet 25-100 PO 1 each QID AMEYA Administration Enoxaparin Sodium 40 mg 01/06/19 09:00 01/06/19 07:17 Lovenox SQ 40 mg DAILY AMEYA Administration Furosemide 60 mg 01/05/19 21:00 01/06/19 07:17 Lasix IV 60 mg Q12HR AMEYA Administration Gabapentin 300 mg 01/05/19 21:00 01/06/19 07:17 Neurontin PO 300 mg BID AMEYA Administration Insulin Aspart 0 unit 01/05/19 21:00 01/06/19 07:12 Novolog SQ Not Given ACHS [facility] Protocol Levothyroxine Sodium 150 mcg 01/06/19 06:30 01/06/19 06:18 Synthroid PO 150 mcg DAILY@0630 AMEYA Administration Melatonin 3 mg 01/05/19 17:53 Melatonin PO HS PRN Insomnia Metoprolol Tartrate 25 mg 01/05/19 22:00 01/06/19 07:17 Lopressor PO 25 mg TID AMEYA Administration Naloxone HCl 0.2 mg 01/05/19 17:53 Narcan IV Q2M PRN Opioid Reversal Ondansetron HCl 4 mg 01/05/19 17:53 Zofran IVP Q8HR PRN Nausea And Vomiting Tramadol HCl 50 mg 01/05/19 17:53 Ultram PO Q6H PRN Moderate Pain Intake and Output 01/05/19 01/06/19 01/06/19 22:59 06:59 14:59 Intake Total 720 480 Output Total 1000 500 Balance -280 -500 480 Intake: Oral 720 480 Output: Urine 1000 500 Other: Voiding Method Toilet Toilet # Voids 2 Weight 99.7 kg 01/06/19 06:33 01/06/19 06:33 EKG Interpretations (text) EKG shows a normal sinus rhythm with first-degree AV block and nonspecific ST-T wave changes Assessment and Plan Plan: Assessment and plan #1 symptoms of progressively worsening shortness of breath with associated bilateral peripheral edema, medical picture suggests congestive cardiac failure. LV function unknown #2 history of coronary artery disease with prior 2 vessel bypass in 2010 #3 tissue aortic valve replacement in 2010 #4 hypertension #5 diabetes #6 hyperlipidemia Plan We will obtain an echocardiogram with Doppler study. Continue diuresing the patient with IV Lasix. Decrease aspirin to 81 mg daily. Continue statin. Continue to monitor intake and output along with daily weights and daily lytes BUN and creatinine. DNP note has been reviewed, I agree with a documented findings and plan of care. Patient was seen and examined.
[2019-01-06 11:23] VITALS: BMI 36.6
--- NOTE | 2019-01-06 11:23 | P.PN ---
Subjective Progress Note Date: 01/06/19 HPI: patient is a 78-year-old female past medical history of diabetes mellitus type 2 with peripheral neuropathy controlled on oral medications, hypertension, hypothyroidism, and possible prior congestive heart failure who presented to the emergency department at the instruction of Dr. Low cough or shortness of breath. In the ER she underwent an extensive evaluation.her initial vital signs were within normal limits.initial laboratory analysis showed elevated potassium at 6.1, chronically elevated creatinine at 1.35, negative troponin at 0.012, and an elevated BNP at 561. Lipase is mildly elevated at 431. Initial EKG showed probable right bundle branch block with AR prolongation at 222, no significant ST-T wave changes. Chest x-ray showed probable fluid overload. She was given a dose of aspirin and Lasix and nitro in the emergency department. Her breathing improved greatly. She has subsequently been admitted to the cardiac floor. 01/06/2019: Patient feels better, shortness of breath has improved, she is ambulating, she denies chest pain, no abdominal pain, no dizziness, no loss of consciousness. Objective - Vital Signs Vital signs: Vital Signs Temp 97.7 F 01/06/19 07:23 Pulse 68 01/06/19 08:00 Resp 18 01/06/19 08:00 BP 139/62 01/06/19 07:23 Pulse Ox 94 L 01/06/19 07:58 Intake & Output 01/05/19 01/06/19 01/06/19 18:59 06:59 18:59 Intake Total 720 480 Output Total 1500 300 Balance -780 180 Weight 103.419 kg 99.7 kg Intake: Oral 720 480 Output: Urine 1500 300 Other: Voiding Method Toilet # Voids 2 - Exam General: obese, awake alert oriented 3, does not appear to be in distress. Derm: no rash or ecchymoses Head: normocephalic atraumatic Eyes: EOMI, no lid lag, anicteric sclera, pupils equal round reactive to light ENT: Nose and ears atraumatic Neck: No thyromegaly, no cervical lymphadenopathy Cardiovascular: S1S2 reg, no murmur,, 3+ edema Lungs: decreased breath sounds, no rhonchi, no rales , no accessory muscle use Abdominal: soft, nontender to palpation, no appreciable organomegaly, normal bowel sounds Ext: no gross muscle atrophy, muscle strength 5 out of 5 in all 4 extremities grossly. Neuro: CN II-XI grossly intact Psych: Alert, oriented, appropriate affect - Labs CBC & Chem 7: 01/06/19 06:33 01/06/19 06:33 Labs: Abnormal Lab Results - Last 24 Hours (Table) 01/05/19 01/05/19 01/05/19 Range/Units 11:38 11:57 11:57 RBC (3.80-5.40) m/uL MCV 102.7 H (80.0-100.0) fL Potassium 6.1 H* (3.5-5.1) mmol/L Chloride 109 H (98-107) mmol/L Carbon Dioxide (22-30) mmol/L BUN 33 H (7-17) mg/dL Creatinine 1.35 H (0.52-1.04) mg/dL Glucose 112 H (74-99) mg/dL POC Glucose (mg/dL) 120 H (75-99) mg/dL Lipase 431 H (23-300) U/L 01/05/19 01/05/19 01/05/19 Range/Units 12:51 20:28 21:30 RBC (3.80-5.40) m/uL MCV (80.0-100.0) fL Potassium 6.2 H* (3.5-5.1) mmol/L Chloride 110 H (98-107) mmol/L Carbon Dioxide (22-30) mmol/L BUN 33 H 32 H (7-17) mg/dL Creatinine 1.35 H 1.33 H (0.52-1.04) mg/dL Glucose (74-99) mg/dL POC Glucose (mg/dL) 129 H (75-99) mg/dL Lipase (23-300) U/L 01/06/19 01/06/19 Range/Units 06:33 06:33 RBC 3.69 L (3.80-5.40) m/uL MCV 100.8 H (80.0-100.0) fL Potassium (3.5-5.1) mmol/L Chloride (98-107) mmol/L Carbon Dioxide 32 H (22-30) mmol/L BUN 30 H (7-17) mg/dL Creatinine 1.23 H (0.52-1.04) mg/dL Glucose (74-99) mg/dL POC Glucose (mg/dL) (75-99) mg/dL Lipase (23-300) U/L Assessment and Plan Plan: acute on chronic congestive heart failure, unknown systolic or diastolic: -continue Lasix 60 mg every 12, strict I's and O's, daily weights -Lopressor, lisinopril on hold secondary to hyperkalemia -Echocardiogram pending -Cardiology consultation, recommendations appreciated, aspirin decreased to 81 mg -Dietitian consultation Hyperkalemia -Likely secondary to combination of potassium with lisinopril -Status post Kayexalate 30 mg 1, continue with Lasix -resolved, potassium 5 today Diabetes mellitus type 2 with hypoglycemia at home -holding metformin and glipizide -Sliding-scale insulin -Check A1c -possibly discontinue glipizide at the time of discharge. essential Hypertension, controlled -Lasix, metoprolol, lisinopril on hold secondary to hyperkalemia -acceptable, monitor. Coronary artery disease -Continue daily aspirin and statin therapy Chronic kidney disease stage III -Creatinine at baseline of 1.3, Stable monitor. -Lisinopril on hold secondary to hyperkalemia -Avoid nephrotoxins, maintain euvolemia Parkinson's disease -Continue with Neurontin and Sinemet -Outpatient follow-up Dr. Estrada CODE STATUS: DO NOT RESUSCITATE DVT prophylaxis: Lovenox Discussed with: Patient Anticipated discharge date: 1-[address]: With home health, [facility] A total of 22 minutes was spent on the care of this complex patient more than 50% of the time was spent in counseling and care coordination.
[2019-01-06 11:24] LABS: Glucose,Whole Blood 300 mg/dL (75-99)
--- NOTE | 2019-01-06 12:24 | ECHOF ---
Referral Reason:Heart Failure MEASUREMENTS -------- HEIGHT: 165.1 cm WEIGHT: 99.3 kg BP: 114/53 RVIDd: 3.7 cm (< 3.3) IVSd: 0.9 cm (0.6 - 1.1) LVIDd: 4.5 cm (3.9 - 5.3) LVPWd: 1.0 cm (0.6 - 1.1) IVSs: 1.1 cm LVIDs: 3.5 cm LVPWs: 1.4 cm LA Diam: 4.6 cm (2.7 - 3.8) LAESV Index (A-L): 41.06 ml/m Ao Diam: 2.2 cm (2.0 - 3.7) AV Cusp: 1.0 cm (1.5 - 2.6) LA Diam: 5.4 cm (2.7 - 3.8) MV E Silver: 1.79 m/s MV DecT: 203 ms MV A Silver: 0.71 m/s MV E/A Ratio: 2.52 AV maxP.21 mmHg AV meanP.18 mmHg AR PHT: 388 ms RAP: 5.00* mmHg RVSP: 41.81 mmHg FINDINGS -------- Sinus rhythm with extra systolic beats. This was a technically difficult study with suboptimal views. The left ventricular size is normal. Left ventricular wall thickness is normal. Overall left vent ricular systolic function is normal with, an EF between 55 - 60 %. Both the mean atrial pressure as well as the LV end diastolic pressure is elevated 24.73. The right ventricle is mildly enlarged. LA is severely dilated >40 ml/m2 RA appears enlarged. 5.0mg OF Lumason UTLIZED: 2 OR MORE WALL SEGMENTS NOT VISUALIZED. Interatrial and interventricular septum intact. There is mild aortic regurgitation. There is moderate aortic stenosis present. Peak/mean gradient across the Aortic Valve is 52.21mmHg / 35.18mmHg. Abnormally functioning porcine bioprosthetic ao rtic valve. The mitral valve leaflets are moderately thickened. Moderate mitral annular calcification present. Daexozvy-iy-[id number] mitral regurgitation is present. The peak and mean MV gradients are 21.11mmHg 5.55mmHg as measured by doppler. Mild tricuspid regurgitation present. There is mild pulmonary hypertension. The right ventricular systolic pressure, as measured by Doppler, is 41.81mmHg. Trace/mild (physiologic) pulmonic regurgitation. The aortic root size is normal. IVC Not well visulized. The pericardium is normal. CONCLUSIONS -------- 1. Sinus rhythm with extra systolic beats. 2. This was a technically difficult study with suboptimal views. 3. The left ventricular size is normal. 4. Left ventricular wall thickness is normal. 5. Overall left ventricular systolic function is normal with, an EF between 55 - 60 %. 6. Both the mean atrial pressure as well as the LV end diastolic pressure is elevated 24.73. 7. The right ventricle is mildly enlarged. 8. LA is severely dilated >40 ml/m2 9. RA appears enlarged. 10. 5.0mg OF Lumason UTLIZED: 2 OR MORE WALL SEGMENTS NOT VISUALIZED. 11. Interatrial and interventricular septum intact. 12. There is mild aortic regurgitation. 13. There is moderate aortic stenosis present. 14. Peak/mean gradient across the Aortic Valve is 52.21mmHg / 35.18mmHg. 15. Abnormally functioning porcine bioprosthetic aortic valve. 16. The mitral valve leaflets are moderately thickened. 17. Moderate mitral annular calcification present. 18. Crdxswzs-ye-zjqeqv mitral regurgitation is present. 19. The peak and mean MV gradients are 21.11mmHg 5.55mmHg as measured by doppler. 20. Mild tricuspid regurgitation present. 21. There is mild pulmonary hypertension. 22. The right ventricular systolic pressure, as measured by Doppler, is 41.81mmHg. 23. Trace/mild (physiologic) pulmonic regurgitation. 24. The aortic root size is normal. 25. IVC Not well visulized. 26. The pericardium is normal. [employer]ESS OPERATOR HEAD: [facility]
[2019-01-06 16:57] LABS: Glucose,Whole Blood 107 mg/dL (75-99)
[2019-01-06] MEDS: ATORVASTATIN 10 MG TAB PO SCH (20:14)
[2019-01-06 21:53] LABS: Glucose,Whole Blood 260 mg/dL (75-99)
[2019-01-07 05:56] LABS: Glucose,Whole Blood 140 mg/dL (75-99)
[2019-01-07] MEDS: INSULIN ASPART (NovoLOG) 100 UNIT/ML VIAL SQ SCH ×4 (05:59→21:17)
[2019-01-07] MEDS: LEVOTHYROXINE 75 MCG TAB PO SCH (06:00)
[2019-01-07 06:37] LABS: Albumin 3.5 g/dL (3.5-5.0); Calcium 9.2 mg/dL (8.4-10.2); Potassium 4.3 mmol/L (3.5-5.1); Total Bilirubin 0.4 mg/dL (0.2-1.3); Total Protein 5.8 g/dL (6.3-8.2)
[2019-01-07] MEDS: FUROSEMIDE 10 MG/ML 10 ML VIAL IV SCH ×2 (08:09→19:53)
[2019-01-07] MEDS: ENOXAPARIN 40 MG/0.4 ML SYRINGE SQ SCH (08:09)
[2019-01-07] MEDS: CARBIDOPA-LEVODOPA 25-100 MG 1 EACH TAB PO SCH ×4 (08:09→19:53)
[2019-01-07] MEDS: GABAPENTIN 300 MG CAP PO SCH ×2 (08:10→19:53)
[2019-01-07] MEDS: METOPROLOL TARTRATE 25 MG TAB PO SCH ×3 (08:10→19:53)
[2019-01-07] MEDS: ASPIRIN 81 MG PO SCH (08:10)
[2019-01-07 11:06] LABS: Glucose,Whole Blood 313 mg/dL (75-99)
--- NOTE | 2019-01-07 12:18 | P.PN ---
Subjective Progress Note Date: 01/07/19 HPI: patient is a 78-year-old female past medical history of diabetes mellitus type 2 with peripheral neuropathy controlled on oral medications, hypertension, hypothyroidism, and possible prior congestive heart failure who presented to the emergency department at the instruction of Dr. Low cough or shortness of breath. In the ER she underwent an extensive evaluation.her initial vital signs were within normal limits.initial laboratory analysis showed elevated potassium at 6.1, chronically elevated creatinine at 1.35, negative troponin at 0.012, and an elevated BNP at 561. Lipase is mildly elevated at 431. Initial EKG showed probable right bundle branch block with AR prolongation at 222, no significant ST-T wave changes. Chest x-ray showed probable fluid overload. She was given a dose of aspirin and Lasix and nitro in the emergency department. Her breathing improved greatly. She has subsequently been admitted to the cardiac floor. 01/06/2019: Patient feels better, shortness of breath has improved, she is ambulating, she denies chest pain, no abdominal pain, no dizziness, no loss of consciousness. 01/07/2019: Patient continues to improve, she has been walking in the hallway, shortness of breath is much better, no chest pain no abdominal pain no nausea no vomiting. Patient's daughter is at bedside. Objective - Vital Signs Vital signs: Vital Signs Temp 96.9 F L 01/07/19 08:00 Pulse 81 01/07/19 08:00 Resp 20 01/07/19 08:00 BP 125/55 01/07/19 08:00 Pulse Ox 94 L 01/07/19 03:47 Intake & Output 01/06/19 01/07/19 01/07/19 18:59 06:59 18:59 Intake Total 480 240 Output Total 800 1200 200 Balance -320 -1200 40 Weight 99.7 kg 99.6 kg Intake: Oral 480 240 Output: Urine 800 1200 200 Other: Voiding Method Toilet # Voids 1 - Exam General: obese, awake alert oriented 3, not in distress. Derm: no rash or ecchymoses Head: normocephalic atraumatic Eyes: EOMI ENT: Nose and ears atraumatic Neck: No thyromegaly, no cervical lymphadenopathy Cardiovascular: S1S2 reg, no murmur,, 2+ edema Lungs: decreased breath sounds, no rhonchi, no rales , no accessory muscle use Abdominal: soft, nontender to palpation, normal bowel sounds Ext: no gross muscle atrophy, muscle strength 5 out of 5 in all 4 extremities grossly. Neuro: CN II-XI grossly intact Psych: Alert, oriented, appropriate affect - Labs CBC & Chem 7: 01/06/19 06:33 01/07/19 05:35 Labs: Abnormal Lab Results - Last 24 Hours (Table) 01/06/19 01/06/19 01/06/19 Range/Units 06:30 16:53 21:26 Carbon Dioxide (22-30) mmol/L BUN (7-17) mg/dL Creatinine (0.52-1.04) mg/dL Glucose (74-99) mg/dL POC Glucose (mg/dL) 107 H 260 H (75-99) mg/dL Hemoglobin A1c 7.0 H (4.0-6.0) % ALT (9-52) U/L Total Protein (6.3-8.2) g/dL 01/07/19 01/07/19 01/07/19 Range/Units 05:35 05:54 11:05 Carbon Dioxide 33 H (22-30) mmol/L BUN 29 H (7-17) mg/dL Creatinine 1.23 H (0.52-1.04) mg/dL Glucose 133 H (74-99) mg/dL POC Glucose (mg/dL) 140 H 313 H (75-99) mg/dL Hemoglobin A1c (4.0-6.0) % ALT 7 L (9-52) U/L Total Protein 5.8 L (6.3-8.2) g/dL Assessment and Plan Plan: acute on chronic congestive heart failure, unknown systolic or diastolic: -continue Lasix 60 mg every 12, strict I's and O's, daily weights -Lopressor, lisinopril on hold secondary to hyperkalemia -Echocardiogram pending report -Cardiology consultation, recommendations appreciated, aspirin decreased to 81 mg -Dietitian consultation Hyperkalemia -Likely secondary to combination of potassium with lisinopril -Status post Kayexalate 30 mg 1, continue with Lasix -resolved, potassium 4.3 today Diabetes mellitus type 2 with hypoglycemia at home -holding metformin and glipizide -Continue on insulin Sliding-scale insulin -possibly discontinue glipizide at the time of discharge. essential Hypertension, controlled -Lasix, metoprolol, lisinopril on hold secondary to hyperkalemia -acceptable, monitor. Coronary artery disease -Continue daily aspirin and statin therapy Chronic kidney disease stage III -Creatinine at baseline of 1.3, Stable monitor. -Lisinopril on hold secondary to hyperkalemia -Avoid nephrotoxins, maintain euvolemia Parkinson's disease -Continue with Neurontin and Sinemet -Outpatient follow-up Dr. Estrada CODE STATUS: DO NOT RESUSCITATE DVT prophylaxis: Lovenox Discussed with: Patient Anticipated discharge date: 1-[address]: With home health, telehealth Treatment plan discussed with the patient and her daughter at bedside
--- NOTE | 2019-01-07 12:39 | PN ---
PROGRESS NOTE Mrs. Thorne is a 78-year-old female, status post bypass grafting, aortic valve replacement, who presented with symptoms of progressive dyspnea. She is feeling better this morning, her breathing is better. She is denying any chest pain. No dizziness. No palpitation. She had an echocardiogram that showed a preserved ventricular systolic function with a mean gradient of 35 mmHg across the aortic valve and moderate severe mitral regurgitation. She continues to be at this time on aspirin once a day, Lipitor 10 mg daily, Sinemet, Lasix 60 mg IV q.12 hours, metoprolol tartrate 25 mg 3 times a day. PHYSICAL EXAMINATION: Blood pressure 125/50 with a heart rate in the 80s. LUNGS: Clear. HEART: Regular rate and rhythm, S1, S2. No S3 with systolic murmur heard at the base, ejection type. No diastolic murmur, no rub. ABDOMEN: Soft, nontender, obese. EXTREMITIES: +1 edema. IMPRESSION: 1. Congestive heart failure with at least moderate aortic stenosis by transthoracic echocardiogram. 2. Moderate severe mitral regurgitation. 3. Status post coronary artery bypass grafting. 4. Chronic kidney disease. 5. History of diabetes. 6. Hyperlipidemia. RECOMMENDATION: I would recommend to proceed with transesophageal echocardiogram and if we see documented significant mitral regurgitation and significant progression of aortic valve disease, then she will need further workup to further evaluate the status of her aortic valve and guide her treatment. I have discussed with the patient those findings and recommendation. She has full understanding and agreement. MMODL / JEREMYN: [id number] /
[2019-01-07 16:22] LABS: Glucose,Whole Blood 216 mg/dL (75-99)
[2019-01-07] MEDS: ATORVASTATIN 10 MG TAB PO SCH (19:52)
[2019-01-07 20:48] LABS: Glucose,Whole Blood 207 mg/dL (75-99)
[2019-01-08] MEDS: ASPIRIN 81 MG PO SCH (06:14)
[2019-01-08] MEDS: LEVOTHYROXINE 75 MCG TAB PO SCH (06:14)
[2019-01-08] MEDS: GABAPENTIN 300 MG CAP PO SCH ×2 (06:14→20:28)
[2019-01-08] MEDS: METOPROLOL TARTRATE 25 MG TAB PO SCH (06:14)
[2019-01-08] MEDS: CARBIDOPA-LEVODOPA 25-100 MG 1 EACH TAB PO SCH ×4 (06:14→21:13)
[2019-01-08] MEDS: INSULIN ASPART (NovoLOG) 100 UNIT/ML VIAL SQ SCH ×4 (06:16→21:13)
[2019-01-08 06:17] LABS: Glucose,Whole Blood 155 mg/dL (75-99)
[2019-01-08 08:25] LABS: Basophils % (A) 1 %; Eosinophils # (A) 0.2 k/uL (0-0.7); Eosinophils % (A) 3 %; HCT 39.1 % (34.0-46.0); HGB 12.3 gm/dL (11.4-16.0); Hypochromasia Slight; Lymphocytes % (A) 17 %; MCH 31.3 pg (25.0-35.0); MCHC 31.4 g/dL (31.0-37.0); MCV 99.7 fL (80.0-100.0); Macrocytosis Slight; Mean Platelet Volume 7.1; Monocytes # (A) 0.4 k/uL (0-1.0); Monocytes % (A) 7 %; Neutrophils # (A) 4.1 k/uL (1.3-7.7); Neutrophils % (A) 71 %; Platelet Count 200 k/uL (150-450); RBC 3.92 m/uL (3.80-5.40); RDW 15.3 % (11.5-15.5); WBC 5.8 k/uL (3.8-10.6)
[2019-01-08 08:46] LABS: Albumin 3.7 g/dL (3.5-5.0); Calcium 9.4 mg/dL (8.4-10.2); Potassium 4.1 mmol/L (3.5-5.1); Total Bilirubin 0.4 mg/dL (0.2-1.3); Total Protein 6.2 g/dL (6.3-8.2)
[2019-01-08] MEDS ORDERED: fentaNYL (PF) 50 MCG/ML 2 ML AMP ONE (09:17)
[2019-01-08] MEDS ORDERED: SODIUM CHLORIDE 0.9% 500 ML 500 ML IV ONE (09:40)
[2019-01-08] MEDS: BENZOCAINE SPRAY 1 CAN MUCOUS MEM ONE ×2 (09:53→10:07)
[2019-01-08] MEDS ORDERED: MIDAZOLAM (PF) 2 MG/2 ML VIAL IV ONE (10:06)
[2019-01-08] MEDS ORDERED: fentaNYL (PF) 50 MCG/ML 2 ML AMP IV ONE (10:07)
[2019-01-08] MEDS ORDERED: SODIUM CHLORIDE 0.9% 1,000 ML IV SCH (10:30)
[2019-01-08] MEDS: FUROSEMIDE 10 MG/ML 10 ML VIAL IV SCH (10:47)
[2019-01-08] MEDS: ENOXAPARIN 40 MG/0.4 ML SYRINGE SQ SCH (10:49)
--- NOTE | 2019-01-08 10:55 | P.PN ---
Subjective Progress Note Date: 01/08/19 Principal diagnosis: sob HPI: patient is a 78-year-old female past medical history of diabetes mellitus type 2 with peripheral neuropathy controlled on oral medications, hypertension, hypothyroidism, and possible prior congestive heart failure who presented to the emergency department at the instruction of Dr. Low cough or shortness of breath. In the ER she underwent an extensive evaluation.her initial vital signs were within normal limits.initial laboratory analysis showed elevated potassium at 6.1, chronically elevated creatinine at 1.35, negative troponin at 0.012, and an elevated BNP at 561. Lipase is mildly elevated at 431. Initial EKG showed probable right bundle branch block with DE prolongation at 222, no significant ST-T wave changes. Chest x-ray showed probable fluid overload. She was given a dose of aspirin and Lasix and nitro in the emergency department. Her breathing improved greatly. She has subsequently been admitted to the cardiac floor. 01/06/2019: Patient feels better, shortness of breath has improved, she is ambulating, she denies chest pain, no abdominal pain, no dizziness, no loss of consciousness. 01/07/2019: Patient continues to improve, she has been walking in the hallway, shortness of breath is much better, no chest pain no abdominal pain no nausea no vomiting. Patient's daughter is at bedside. 01/08/2019: Status post DON today, feels better, shortness of breath continues to improve, she denies chest pain, abdominal pain, no nausea no vomiting Objective - Vital Signs Vital signs: Vital Signs Temp 97.6 F 01/08/19 07:56 Pulse 68 01/08/19 10:17 Resp 16 01/08/19 10:17 BP 167/75 01/08/19 10:17 Pulse Ox 97 01/08/19 10:17 Intake & Output 01/07/19 01/08/19 01/08/19 18:59 06:59 18:59 Intake Total 720 50 Output Total 1700 800 Balance -980 -800 50 Weight 98.5 kg Intake: IV 50 Oral 720 Output: Urine 1700 800 Other: # Voids 1 # Bowel Movements 1 - Exam General: obese, awake alert oriented 3, not in distress. Derm: no rash Head: normocephalic atraumatic Eyes: EOMI ENT: Nose and ears atraumatic Neck: No thyromegaly, no cervical lymphadenopathy Cardiovascular: S1S2 reg, no murmur, 1+ edema Lungs: decreased breath sounds, no rhonchi, no rales , no accessory muscle use, no wheezing. Abdominal: soft, nontender to palpation, normal bowel sounds Ext: no gross muscle atrophy, muscle strength 5 out of 5 in all 4 extremities grossly. Neuro: CN II-XI grossly intact Psych: Alert, oriented, appropriate affect - Labs CBC & Chem 7: 01/08/19 07:41 01/08/19 07:41 Labs: Abnormal Lab Results - Last 24 Hours (Table) 01/07/19 01/07/19 01/07/19 Range/Units 11:05 16:20 20:47 Carbon Dioxide (22-30) mmol/L BUN (7-17) mg/dL Creatinine (0.52-1.04) mg/dL Glucose (74-99) mg/dL POC Glucose (mg/dL) 313 H 216 H 207 H (75-99) mg/dL Total Protein (6.3-8.2) g/dL 01/08/19 01/08/19 Range/Units 06:16 07:41 Carbon Dioxide 36 H (22-30) mmol/L BUN 23 H (7-17) mg/dL Creatinine 1.05 H (0.52-1.04) mg/dL Glucose 168 H (74-99) mg/dL POC Glucose (mg/dL) 155 H (75-99) mg/dL Total Protein 6.2 L (6.3-8.2) g/dL Assessment and Plan Plan: acute on chronic congestive heart failure, unknown systolic or diastolic: -continue Lasix decreased from 60 mg every 12 to 4 a twice a day by mouth, strict I's and O's, daily weights -Lopressor, lisinopril on hold secondary to hyperkalemia -Echocardiogram MR -Cardiology consultation, recommendations appreciated, aspirin decreased to 81 mg -Dietitian consultation Moderate to severe mitral regurgitation: Cardiology following, DON performed today Hyperkalemia -Likely secondary to combination of potassium with lisinopril -Status post Kayexalate 30 mg 1, continue with Lasix -resolved, potassium 4.1 today Diabetes mellitus type 2 with hypoglycemia at home -holding metformin and glipizide -Continue on insulin Sliding-scale insulin -possibly discontinue glipizide at the time of discharge. essential Hypertension, controlled -Lasix, metoprolol, lisinopril on hold secondary to hyperkalemia -acceptable, monitor. Coronary artery disease -Continue daily aspirin and statin therapy Chronic kidney disease stage III -Creatinine 1 Stable monitor. -Lisinopril on hold secondary to hyperkalemia -Avoid nephrotoxins, maintain euvolemia Parkinson's disease -Continue with Neurontin and Sinemet -Outpatient follow-up Dr. Estrada Cardiac arrhythmia, likely atrial flutter Continue metoprolol, started on Eliquis by cardiology CODE STATUS: DO NOT RESUSCITATE DVT prophylaxis: Lovenox Discussed with: Patient Anticipated discharge date: 1-[address]: With home health, telehealth Treatment plan discussed with the patient and her nurse at bedside Time with Patient: Less than 30
--- NOTE | 2019-01-08 10:57 | ECHOT ---
TRANSESOPHAGEAL ECHOCARDIOGRAM INDICATION: Evaluation of aortic valve and mitral valve. PROCEDURE: After explaining the procedure to the patient, its risks and the complications, blood pressure, heart rate, O2 saturation was monitored. The throat was sprayed with Cetacaine. She received 1 mg intravenous Versed, 50 mcg intravenous fentanyl. The probe was introduced in the esophagus without difficulty. Images were obtained. Following that, the probe was removed. There was no immediate complication. FINDINGS: Left atrial size is moderately dilated. Left atrial appendage is normal. Left ventricular size and systolic function normal. The aortic valve is a bioprosthetic valve with no calcification and normal opening of the leaflets. The mitral valve revealed mild calcification. Tricuspid valve is normal. Descending thoracic aorta appears to be normal. Contrast bubble study revealed no evidence of shunting across the interatrial septum. No pericardial effusion was noted. Doppler pulse wave and color Doppler obtained and revealed moderate to severe mitral with mild tricuspid regurgitation. The mean gradient across the aortic valve was 27 mmHg with a peak of 39 mmHg. The estimated right ventricular systolic pressure was 62 mmHg consistent with severe pulmonary hypertension. There was no shunting by color Doppler study. CONCLUSION: 1. Dilated left atrium with spontaneous contrast. 2. Normal left ventricular size and systolic function. 3. Bioprosthetic aortic valve with no significant calcification and preserved opening of the leaflets with mean gradient of 27 mmHg consistent with moderate aortic stenosis. 4. Moderate to severe mitral regurgitation. 5. Mild tricuspid regurgitation with severe pulmonary hypertension. 6. Normal appearance of the descending thoracic aorta. 7. No pericardial effusion. MMODL / IJN: [id number] /
[2019-01-08] MEDS: APIXABAN 5 MG TAB PO SCH ×2 (11:09→20:28)
--- NOTE | 2019-01-08 11:12 | PN ---
PROGRESS NOTE Mrs. Thorne is a 78-year-old female who presented with symptoms of progressive dyspnea. She is status post aortic valve replacement and coronary artery bypass grafting. She is feeling better this morning. Her breathing is stable. Her echocardiogram showed moderate to severe mitral regurgitation with progression of gradient across the aortic valve. After reviewing the rhythm strip in detail, it appears that she is in either atrial tachycardia with variable block or atypical atrial flutter. Her heart rate is stable. She underwent transesophageal echocardiogram that revealed a preserved left ventricular size and systolic function with moderate to severe mitral regurgitation. The aortic valve did not appear to be calcified and a mean gradient mmHg. There was evidence of severe pulmonary hypertension. Her medications at this time include aspirin once a day, Lipitor 10 mg daily, Lasix 60 mg IV q.12 hours, metoprolol tartrate 25 mg 3 times a day and tramadol. PHYSICAL EXAMINATION: Blood pressure 160/70 with the heart rate in the 60s. LUNGS: Clear. HEART: Irregular, irregular, S1,S2 with systolic ejection murmur. No diastolic murmur. No rub. ABDOMEN: Soft, nontender, obese. Positive bowel sounds. EXTREMITIES: No significant edema. LAB DATA: Lab data revealed a BUN and creatinine 23 and 1.05, potassium 4.1, hemoglobin 12.3. IMPRESSION: 1. Symptoms of congestive heart failure with preserved systolic function, improved. 2. Status post aortic valve replacement with mild to moderate gradient across the aortic valve. 3. Moderate to severe mitral regurgitation. 4. Evidence to suggest atrial tachycardia or atypical atrial flutter. 5. Hypertension. 6. Hyperlipidemia. 7. Diabetes mellitus. RECOMMENDATION: I will increase the dose of her beta vale and switch her to oral diuretics. I will start her on anticoagulation in the form of the Eliquis. We will follow her rhythm and her symptoms. If she remains stable, she may be able to be discharged home and subsequently undergo attempt to restore sinus mechanism. Those findings and recommendations were discussed with the patient who is in full understanding and agreement. MMODL / IJN: [id number] /
[2019-01-08 11:31] LABS: Glucose,Whole Blood 163 mg/dL (75-99)
[2019-01-08 13:24] LABS: T4, Free (Free Thyroxine) 2.73 ng/dL (0.78-2.19)
--- NOTE | 2019-01-08 14:57 | CDI ---
Documentation Clarification Form Date: 01/08/2019 2:40:00 PM From: Belkys Estrada RN, CCDS Admit Date: 01/05/2019 2:22:00 PM Patient Name: Violet Thorne Visit Number: [id number] Discharge Date: ATTENTION: The Clinical Documentation Specialists (CDI) and [facility] Coding Staff appreciate your assistance in clarifying documentation. Please respond to the clarification below the line at the bottom and electronically sign. The CDI & [facility] Coding staff will review the response and follow-up if needed. Please note: Queries are made part of the Legal Health Record. If you have any questions, please contact the author of this message via ITS. Dr. Maria Del Carmen Berry CHF is documented in the consult on 01/06/19 and continue in your ongoing progress notes, and further clarification is needed. History/Risk Factors: Diabetes Mellitus, Hypertension, Parkinson, Clinical Indicators: 78-year-old female present with chest pain with shortness of breath worse with exertion. She has /68 84 22 97.6 ed breath sounds in the left base with some crackles. VS/Pulse OX: 159/68 84 22 97.6 96 % RA BNP: 5610 Echocardiogram Results: Overall left ventricular systolic function is normal with an EF between 55-60 % Moderate to severe mitral regurgitation. Mild tricuspid regurgitation with severe pulmonary hypertension. Chest X Ray: acute pulmonary edema Treatment: IV Lasix Eliquis PO Lipitor Po, Lopressor PO In your professional opinion, can you please clarify the acuity and type of CHF if known? Diastolic Heart Failure: xxx Acute Chronic Acute on Chronic Systolic & Diastolic Heart Failure: Acute Chronic Acute on Chronic Heart Failure Unable to Determine Other, please specify (Last Revision: November 2017) MTDD
[2019-01-08 16:42] LABS: Glucose,Whole Blood 209 mg/dL (75-99)
[2019-01-08] MEDS: METOPROLOL TARTRATE 50 MG TAB PO SCH (20:28)
[2019-01-08] MEDS: FUROSEMIDE 40 MG TAB PO SCH (20:28)
[2019-01-08 20:48] LABS: Glucose,Whole Blood 247 mg/dL (75-99)
[2019-01-08] MEDS ORDERED: ATORVASTATIN 20 MG TAB PO SCH (21:00)
[2019-01-09 03:28] LABS: Glucose,Whole Blood 181 mg/dL (75-99)
[2019-01-09 04:00] VITALS: RESP 18
[2019-01-09] MEDS: LEVOTHYROXINE 75 MCG TAB PO SCH (06:02)
[2019-01-09 06:06] LABS: Glucose,Whole Blood 164 mg/dL (75-99)
[2019-01-09] MEDS: INSULIN ASPART (NovoLOG) 100 UNIT/ML VIAL SQ SCH ×2 (06:07→12:13)
[2019-01-09 07:33] LABS: Basophils % (A) 1 %; Eosinophils # (A) 0.2 k/uL (0-0.7); Eosinophils % (A) 3 %; HGB 12.3 gm/dL (11.4-16.0); Hypochromasia Slight; Lymphocytes % (A) 18 %; MCH 31.3 pg (25.0-35.0); MCHC 30.8 g/dL (31.0-37.0); MCV 101.4 fL (80.0-100.0); Macrocytosis Slight; Mean Platelet Volume 7.2; Monocytes # (A) 0.4 k/uL (0-1.0); Monocytes % (A) 7 %; Neutrophils # (A) 3.9 k/uL (1.3-7.7); Neutrophils % (A) 70 %; Platelet Count 200 k/uL (150-450); RBC 3.95 m/uL (3.80-5.40); RDW 14.5 % (11.5-15.5); WBC 5.6 k/uL (3.8-10.6)
[2019-01-09 08:09] LABS: Albumin 3.8 g/dL (3.5-5.0); Calcium 9.7 mg/dL (8.4-10.2); Potassium 4.1 mmol/L (3.5-5.1); Total Bilirubin 0.5 mg/dL (0.2-1.3); Total Protein 6.3 g/dL (6.3-8.2)
[2019-01-09] MEDS: CARBIDOPA-LEVODOPA 25-100 MG 1 EACH TAB PO SCH ×2 (08:58→12:58)
[2019-01-09] MEDS: FUROSEMIDE 40 MG TAB PO SCH (08:58)
[2019-01-09] MEDS: ASPIRIN 81 MG PO SCH (08:58)
[2019-01-09] MEDS: APIXABAN 5 MG TAB PO SCH (08:58)
[2019-01-09] MEDS: GABAPENTIN 300 MG CAP PO SCH (08:58)
[2019-01-09] MEDS: METOPROLOL TARTRATE 50 MG TAB PO SCH (09:01)
[2019-01-09 10:13] VITALS: BP 122/65; PULSE 90; TEMP 97.5
--- NOTE | 2019-01-09 10:55 | P.DS ---
Providers Date of admission: 01/05/19 14:22 Expected date of discharge: 01/09/19 Attending physician: Orin Kaufman DO Consults: 01/05/19 14:22 Consult Physician Routine Consulting Provider: [facility] Consult Reason/Comments: Acute pulmonary edema Do you want consulting provider notified?: Yes Primary care physician: Deandre Bartholomew [facility] Course: Discharge Diagnosis: Acute exacerbation of diastolic congestive heart failure with ejection fraction 55-60% Moderate to severe mitral regurgitation, moderate aortic stenosis Hyperkalemia Acute kidney injury and chronic kidney disease stage III Diabetes mellitus type 2 with hypoglycemia at home, A1c 7 Hypertension Coronary artery disease Hypothyroidism with TSH 0.015 and Synthroid decreased Morbid obesity with BMI 36.2 P. Atrial flutter-started on eliquis by cardio Hospital Course: Patient is a 78-year-old female past medical history of diabetes mellitus type 2 with peripheral neuropathy controlled on oral medications, hypertension, hypothyroidism, and possible prior congestive heart failure who presented to the emergency department at the instruction of Dr. Bartholomew for shortness of breath. In the ER she underwent an extensive evaluation. Her initial vital signs were within normal limits. Initial laboratory analysis showed elevated potassium at 6.1, chronically elevated creatinine at 1.35, negative troponin at 0.012, and an elevated BNP at 5610. Lipase is mildly elevated at 431. Initial EKG showed probable right bundle branch block with GA prolongation at 222, no significant ST-T wave changes. Chest x-ray showed probable fluid overload. She was given a dose of aspirin and Lasix and nitro in the emergency department. Her breathing improved greatly. She has subsequently been admitted to the cardiac floor. She was seen by cardiology. She was maintained on Lasix. She underwent an echocardiogram which showed moderate aortic stenosis and moderate to severe mitral regurgitation. She subsequently underwent a DON which demonstrated the same. Her ejection fraction was 55-60%. Her medications were optimized. She diuresed well. Her potassium normalized and her kidney function improved. She was also noted to have an abnormal atrial rhythm felt to be probable atrial flutter. She was started on eliquis by card iology. She was up and ambulating in her shortness of breath had resolved. She was determined stable for discharge home. Of note she been having hypoglycemic episodes multiple times at home and therefore her sulfonylurea was discontinued. She will continue to take her metformin 1000 milligrams twice daily. I've instructed her that she has to morning blood sugar is less than 80 to stop her metformin. She was also given a log to create for her blood sugar, blood pressure, pulse, and weight. She was set up with home health with telehealth. She will follow up with Dr. Bartholomew in 2-3 days. She'll follow up with Dr. Berry in 2 weeks. She was also found to have depressed TSH and therefore her levothyroxine was decreased from 150 g 237 g daily. Patient seen and examined at bedside. Breathing is better, edema significantly improved. Up and ambulating and feeling much improved. All questions answered. Vital signs reviewed and stable. General: non toxic, no distress, appears at stated age Derm: warm, dry Head: atraumatic, normocephalic, symmetric Eyes: EOMI, no lid lag, anicteric sclera Mouth: no lip lesion, mucus membranes moist Cardiovascular: S1-S2 with systolic ejection murmur, positive posterior tibial pulse bilateral, Lungs: CTA bilateral, no rhonchi, no rales , no accessory muscle use Abdominal: soft, nontender to palpation, no guarding, no appreciable organomegaly Ext: no gross muscle atrophy, 2+, no contractures Neuro: CN II-XI grossly intact, no focal neuro deficits Psych: Alert, oriented, appropriate affect A total of 35 minutes of time were spent preparing this complex discharge summary . Pertinent Studies: Echocardiogram-ejection fraction 55-60%, moderate to severe mitral regurgitation, moderate aortic stenosis Procedures: DON-ejection fraction 55-60%, moderate to severe mitral regurgitation, moderate aortic stenosis Patient Condition at Discharge: Stable Plan - Discharge Summary New Discharge Prescriptions: New Aspirin 81 mg PO DAILY chew Furosemide [Lasix] 40 mg PO BID #60 tab Metoprolol Tartrate [Lopressor] 50 mg PO BID #60 tab Levothyroxine Sodium [Synthroid] 137 mcg PO DAILY #30 tab Continue metFORMIN HCL [Glucophage] 1,000 mg PO BID Carbidopa-Levodopa 25-100 mg [Sinemet 25-100 mg] 1 tab PO QID Benazepril [Lotensin] 10 mg PO DAILY Changed Naproxen [Naprosyn] 500 mg PO Q12HR PRN #0 PRN Reason: Pain Discontinued glipiZIDE [Glucotrol] 5 mg PO TID Metoprolol Tartrate 25 mg PO TID Levothyroxine Sodium [Synthroid] 150 mcg PO DAILY Aspirin 325 mg PO DAILY Furosemide [Lasix] 20 mg PO DAILY Potassium Chloride [Klor-Con 10] 10 meq PO BID No Action Simvastatin [Zocor] 20 mg PO HS Gabapentin [Neurontin] 300 mg PO BID Discharge Medication List Gabapentin [Neurontin] 300 mg PO BID 09/29/16 [History] Simvastatin [Zocor] 20 mg PO HS 09/29/16 [History] Carbidopa-Levodopa 25-100 mg [Sinemet 25-100 mg] 1 tab PO QID 01/05/19 [History] metFORMIN HCL [Glucophage] 1,000 mg PO BID 01/05/19 [History] Aspirin 81 mg PO DAILY chew 01/09/19 [Rx] Benazepril [Lotensin] 10 mg PO DAILY 01/09/19 [History] Furosemide [Lasix] 40 mg PO BID #60 tab 01/09/19 [Rx] Levothyroxine Sodium [Synthroid] 137 mcg PO DAILY #30 tab 01/09/19 [Rx] Metoprolol Tartrate [Lopressor] 50 mg PO BID #60 tab 01/09/19 [Rx] Naproxen [Naprosyn] 500 mg PO Q12HR PRN #0 01/09/19 [Rx] Follow up Appointment(s)/Referral(s): Maria Del Carmen Berry MD [STAFF PHYSICIAN] - 1 Week [facility], [NON-STAFF] - Deandre Bartholomew MD [Primary Care Provider] - 1-2 days Patient Instructions/Handouts: Heart Failure (DC) Activity/Diet/Wound Care/Special Instructions: Eliquis covered by insurance - $47 copay - free 30 day coupon given to patient Diet: heart health, carb consistent, 1500 cc fluid restriction Activity: As tolerated If blood sugar is less than 80 before breakfast for 2 days in a row stop metformin
[2019-01-09 11:55] LABS: Glucose,Whole Blood 205 mg/dL (75-99)
--- NOTE | 2019-01-09 14:50 | PN ---
PROGRESS NOTE Mrs. Thorne is a 78-year-old female who presented with symptoms of worsening dyspnea. She is feeling much better this morning. Her breathing is stable. She denies any chest pain. No dizziness. No palpitation. She denies any nausea. She underwent transesophageal echocardiogram yesterday and was found to have moderate to severe mitral regurgitation with a mean gradient of 27 mmHg across the aortic valve. She is in what appears to be in atrial flutter or atrial tachycardia. Hemodynamically, she is stable. She continues to be at this time on Eliquis 5 mg twice a day, aspirin once a day, Lipitor 20 mg daily, Lasix 40 mg p.o. twice a day, insulin, metoprolol tartrate 50 mg twice a day. PHYSICAL EXAMINATION: Blood pressure 122/60 with a heart rate in the 90s. LUNGS: Clear. HEART: Irregularly, irregular S1, S2. No S3 with a holosystolic murmur at the apex and systolic ejection murmur at the base. ABDOMEN: Soft, obese, nontender. EXTREMITIES: No edema. LAB DATA: Lab data revealed BUN and creatinine of 18 and 1.01, potassium 4.1, hemoglobin 12.3. IMPRESSION: 1. Symptoms of congestive heart failure with preserved systolic function with mitral and aortic valve disease. 2. Status post coronary artery bypass grafting and aortic valve replacement. 3. Hypertension. 4. Diabetes mellitus. 5. Hyperlipidemia. RECOMMENDATION: Patient will be discharged home today and followed as an outpatient. If she remains in the arrhythmia, then one option is to proceed with cardioversion and see if we can restore sinus mechanism. The mitral valve disease will be followed closely to see if further intervention is needed. MMODL / IJN: [id number] /
== END 2019-01-09 13:32 | disposition home health service (06) | DRG 291 ==
LOC: EC 11:28 → 3SCARD 14:22
PROVIDERS: ADMIT Internal Medicine; ATTEND Internal Medicine
DX: I13.0 Hypertensive heart and chronic kidney disease with heart failure and stage 1 through stage 4 chronic kidney disease, or unspecified chronic kidney disease (principal); I50.33 Acute on chronic diastolic (congestive) heart failure; I47.1 Supraventricular tachycardia; I48.4 Atypical atrial flutter; N17.9 Acute kidney failure, unspecified; E03.9 Hypothyroidism, unspecified; E11.22 Type 2 diabetes mellitus with diabetic chronic kidney disease; E11.42 Type 2 diabetes mellitus with diabetic polyneuropathy; E11.649 Type 2 diabetes mellitus with hypoglycemia without coma; E66.01 Morbid (severe) obesity due to excess calories; E78.5 Hyperlipidemia, unspecified; E87.5 Hyperkalemia; G20 Parkinson's disease; I08.0 Rheumatic disorders of both mitral and aortic valves; I25.10 Atherosclerotic heart disease of native coronary artery without angina pectoris; I27.20 Pulmonary hypertension, unspecified; I44.30 Unspecified atrioventricular block; I45.10 Unspecified right bundle-branch block; N18.3 Chronic kidney disease, stage 3 (moderate); Z66 Do not resuscitate; Z68.36 Body mass index [BMI] 36.0-36.9, adult; Z79.01 Long term (current) use of anticoagulants; Z79.82 Long term (current) use of aspirin; Z79.84 Long term (current) use of oral hypoglycemic drugs; Z79.890 Hormone replacement therapy; Z79.899 Other long term (current) drug therapy; Z82.49 Family history of ischemic heart disease and other diseases of the circulatory system; Z95.1 Presence of aortocoronary bypass graft; Z95.3 Presence of xenogenic heart valve
CPT/HCPCS: 36415; 71046; 80048; 80053; 83036; 83690; 83735; 83880; 84439; 84443; 84484; 85025; 85027; 85610; 85730; 93005; 93306; 93312; 93320; 93325; 94760; 96361; 96374; 99291

== ENCOUNTER → 2019-01-29 | Outpatient (CLI) | payer MEDICARE ==
[2019-01-29 12:26] LABS: HCT 43.1 % (34.0-46.0); HGB 13.5 gm/dL (11.4-16.0); MCH 30.7 pg (25.0-35.0); MCHC 31.4 g/dL (31.0-37.0); MCV 97.7 fL (80.0-100.0); Mean Platelet Volume 7.9; Platelet Count 176 k/uL (150-450); RBC 4.41 m/uL (3.80-5.40); RDW 13.9 % (11.5-15.5); WBC 7.1 k/uL (3.8-10.6)
[2019-01-29 12:34] LABS: Potassium 4.9 mmol/L (3.5-5.1)
== END ==
LOC: LABPAT 11:24
PROVIDERS: ATTEND Internal Medicine Interventional Cardiology
DX: Z01.812 Encounter for preprocedural laboratory examination (principal); I48.3 Typical atrial flutter
CPT/HCPCS: 36415; 80051; 82565; 82947; 84520; 85027

== ENCOUNTER 2019-02-05 07:41 | Day surgery (SDC) | payer MEDICARE ==
[2019-02-02 10:10] VITALS: BMI 33.4
[~2019-02-05 07:41] MED LIST: SODIUM CHLORIDE 0.9% 1,000 ML IV SCH
[2019-02-05 08:20] VITALS: TEMP 97.6
[2019-02-05] MEDS ORDERED: INSULIN ASPART (NovoLOG) 100 UNIT/ML VIAL SQ ONE (08:28)
[2019-02-05 08:36] LABS: Glucose,Whole Blood 313 mg/dL (75-99)
[2019-02-05] MEDS ORDERED: PROPOFOL 10 MG/ML 20 ML VIAL IV ONE (09:05)
[2019-02-05] MEDS ORDERED: SODIUM CHLORIDE 0.9% 1,000 ML IV SCH (09:15)
[2019-02-05 09:58] VITALS: RESP 18
--- NOTE | 2019-02-05 10:23 | CE ---
CARDIAC ELECTROPHYSIOLOGY REPORT CARDIOVERSION PROCEDURE NOTE: INDICATION: Atrial tachycardia versus atrial flutter. PROCEDURE: After explaining the procedure to the patient, its risks and complication, her blood pressure, heart rate, O2 saturation was monitored. She has received sedation per the Anesthesia Department. She subsequently underwent cardioversion with synchronized 200 joule biphasic with cheondoism of normal sinus rhythm. There was no immediate complication. WALESKA / JEREMYN: [id number] /
[2019-02-05 10:32] VITALS: BP 146/65; PULSE 87
[2019-02-05] MEDS ORDERED: CARBIDOPA-LEVODOPA 25-100 MG 1 EACH TAB PO SCH (13:00)
[2019-02-05] MEDS ORDERED: METOPROLOL TARTRATE 50 MG TAB PO SCH (21:00)
[2019-02-05] MEDS ORDERED: NON-FORMULARY DRUG (Metformin Hcl [Glucophage] 1,000 MG) PO SCH (21:00)
[2019-02-05] MEDS ORDERED: GABAPENTIN 300 MG CAP PO SCH (21:00)
[2019-02-05] MEDS ORDERED: APIXABAN 5 MG TAB PO SCH (21:00)
[2019-02-05] MEDS ORDERED: FUROSEMIDE 40 MG TAB PO SCH (21:00)
[2019-02-06] MEDS ORDERED: LEVOTHYROXINE 137 MCG TAB PO SCH (09:00)
[2019-02-06] MEDS ORDERED: ASPIRIN 81 MG PO SCH (09:00)
[2019-02-06] MEDS ORDERED: NON-FORMULARY DRUG (Benazepril 10 MG) PO SCH (09:00)
== END 2019-02-05 10:35 | disposition home or self-care (01) ==
LOC: CATHCVL 07:41
PROVIDERS: ATTEND Internal Medicine Interventional Cardiology
DX: I48.3 Typical atrial flutter (principal); I47.1 Supraventricular tachycardia; I11.0 Hypertensive heart disease with heart failure; I50.9 Heart failure, unspecified; I25.10 Atherosclerotic heart disease of native coronary artery without angina pectoris; Z95.1 Presence of aortocoronary bypass graft; I34.0 Nonrheumatic mitral (valve) insufficiency; Z95.2 Presence of prosthetic heart valve; E78.2 Mixed hyperlipidemia; E07.9 Disorder of thyroid, unspecified; E11.40 Type 2 diabetes mellitus with diabetic neuropathy, unspecified; G20 Parkinson's disease; M19.90 Unspecified osteoarthritis, unspecified site; Z97.2 Presence of dental prosthetic device (complete) (partial); Z79.01 Long term (current) use of anticoagulants; Z79.1 Long term (current) use of non-steroidal anti-inflammatories (NSAID); Z79.890 Hormone replacement therapy; Z79.84 Long term (current) use of oral hypoglycemic drugs; Z79.899 Other long term (current) drug therapy; Z79.82 Long term (current) use of aspirin
CPT/HCPCS: 92960; J2704

== ENCOUNTER 2019-02-23 05:53 | Day surgery (SDC) | payer MEDICARE ==
[2019-02-18 14:26] VITALS: BMI 33.1
[2019-02-23] MEDS ORDERED: NITROGLYCERIN SL TABS 0.4 MG TAB SUBLINGUAL PRN (05:56)
[2019-02-23] MEDS ORDERED: ALPRAZolam 0.5 MG TAB PO PRN (05:56)
[2019-02-23] MEDS ORDERED: ASPIRIN 325 MG TAB PO STA (05:56)
[2019-02-23] MEDS ORDERED: ATORVASTATIN 80 MG TAB PO STA (05:56)
[2019-02-23] MEDS ORDERED: ALPRAZolam 0.25 MG TAB PO PRN (05:56)
[2019-02-23] MEDS ORDERED: INSULIN ASPART (NovoLOG) 100 UNIT/ML VIAL SQ ONE (06:27)
[2019-02-23 06:36] LABS: Glucose,Whole Blood 296 mg/dL (75-99)
[2019-02-23 06:46] VITALS: TEMP 97.9
[2019-02-23 06:49] LABS: Calcium 9.9 mg/dL (8.4-10.2); Potassium 3.9 mmol/L (3.5-5.1)
[2019-02-23] MEDS ORDERED: LIDOCAINE 1% INJ 10MG/ML (20 ML MDV) ONE (07:27)
[2019-02-23] MEDS ORDERED: fentaNYL (PF) 50 MCG/ML 2 ML AMP ONE (07:27)
[2019-02-23] MEDS ORDERED: SODIUM CHLORIDE 0.9% 1,000 ML in EMPTY BAG 1 BAG IV ONE (07:30)
[2019-02-23] MEDS ORDERED: fentaNYL (PF) 50 MCG/ML 2 ML AMP IV ONE (07:41)
[2019-02-23] MEDS ORDERED: LIDOCAINE 1% INJ 10MG/ML (20 ML MDV) SQ ONE (07:46)
[2019-02-23] MEDS ORDERED: IOPAMIDOL-370 125ML BTL INJ ONE (07:56)
[2019-02-23] MEDS ORDERED: RX INFO: IV CONTRAST WAS GIVEN 1 EACH MISC MISCELLANE PRN (08:12)
[2019-02-23] MEDS ORDERED: SODIUM CHLORIDE 0.9% 1,000 ML IV SCH (08:15)
--- NOTE | 2019-02-23 08:57 | CC ---
CARDIAC CATHETERIZATION REPORT Ms. Thorne is a 78-year-old female history of coronary bypass grafting, aortic valve replacement, recent diagnosis of atrial flutter who has been complaining of dyspnea on exertion. She underwent a myocardial perfusion imaging that showed possible ischemia in the LAD territory. In view of that, recommendation made regarding cardiac catheterization. The procedure as well as risks and complications were discussed with the patient who is in full understanding and agreement. DESCRIPTION OF PROCEDURE: Patient was brought to the [employer] in a fasting state after receiving fentanyl and Benadryl and achieving moderate conscious sedated state. Using Xylocaine anesthesia and Seldinger technique, a 6-[place] sheath was introduced in the right femoral artery. Selective right and left coronary angiography performed using 6-[place] 4 bend right and left Erin catheter. Multiple views of the right coronary artery including hemiaxial views obtained. Following that, the right Erin catheter was used to cannulate the saphenous vein graft to the right coronary artery and to the LAD. Following that, catheter and sheath were removed. Hemostasis was obtained with deployment of an Angio-Seal. There was no immediate complications. The patient was returned to her room in stable condition. FINDINGS: LEFT MAIN: This is a large-sized vessel bifurcating into left circumflex, left anterior descending artery, left main coronary artery has no evidence of obstructive disease. LEFT ANTERIOR DESCENDING ARTERY: This vessel is totally occluded in the proximal mid segment with no significant antegrade flow. LEFT CIRCUMFLEX: This is a nondominant large size vessel giving rise to 2 obtuse marginal branch of large caliber. The left circumflex as well as branches have no evidence of obstructive coronary artery disease. RIGHT CORONARY ARTERY: This is a large dominant vessel bifurcating distally into PDA and posterolateral segment and branches. The right coronary artery in the mid segment has 10%-20%plaque. There is retrograde fillings through the saphenous vein graft to the right coronary artery. SAPHENOUS VEIN GRAFT TO THE LAD: The proximal and distal anastomotic sites are patent. The flow in the LAD is brisk. There is retrograde flow into the diagonal branch. SAPHENOUS VEIN GRAFT TO THE RCA: The proximal and distal anastomotic sites are patent. The flow into the RCA is brisk. There is no evidence of high-grade stenosis. LEFT VENTRICULOGRAM: Left ventriculogram was not performed. CONCLUSION: 1. Subtotally occluded LAD with competitive flow from the saphenous vein graft. 2. Mild disease in the right coronary artery. 3. Patent saphenous vein graft to the RCA. 4. Patent saphenous vein graft to the LAD. RECOMMENDATIONS: At this time, I will continue medical therapy with the aggressive coronary risk modifications that have been initiated. Those findings and recommendations were discussed with the patient and her family and they are in full understanding and agreement. Duration of procedure is 16 minutes. WALESKA / JEREMYN: [id number] /
[2019-02-23 11:41] VITALS: BP 147/67; PULSE 75; RESP 18
[2019-02-23] MEDS ORDERED: CARBIDOPA-LEVODOPA 25-100 MG 1 EACH TAB PO SCH (13:00)
--- NOTE | 2019-02-23 16:20 | P.OP ---
Date of Procedure: 02/23/19 Preoperative Diagnosis: Incomplete Postoperative Diagnosis: Same Procedure(s) Performed: Suction dilation and curettage Anesthesia: MAC Surgeon: Jessica Bonilla Estimated Blood Loss (ml): 50 IV fluids (ml): 700 Urine output (ml): 100 Pathology: other (Products of conception) Condition: stable Disposition: PACU Operative Findings: 8 week size uterus with active dark red vaginal bleeding Description of Procedure: After the patient and her family members were met in the preoperative holding area and all questions were answered, she was taken to the operating room where anesthetic was administered without incident. She was in positioned, prepped and draped in the dorsal lithotomy position. Exam under anesthetic was undertaken and the uterus was anteverted and approximately 8 weeks size. Cervix was soft and approximately 0.5 cm dilated. Speculum was placed in the vagina after the bladder was drained for approximately 100 mL of clear urine. The cervix was grasped anteriorly with a single-tooth tenaculum. The uterus was sounded to 10 cm. The cervix was sequentially dilated to allow for passage of the 10 curved suction curet. The suction curet was introduced and the uterus wa s circumferentially suction curettaged with appropriate products of conceptio obtained. The suction curet was removed and additional curettage was performed using the sharp banjo curet with very minimal tissue. She did have bright red vaginal bleeding however on bimanual uterine massage was discontinued fairly rapidly. Speculum was reintroduced and the cervix is observed. Silver nitrate was applied to the tenaculum sites for hemostasis. Scant red bleeding was noted from the cervix. Instruments were therefore removed from the vagina. Patient was awoken from anesthetic without difficulty. She was transported to recovery area in stable condition. All counts reported to me as correct by the operating room staff. The patient is Rh+.
[2019-02-23] MEDS ORDERED: METHYLERGONOVINE 0.2 MG TAB PO ONE (16:30)
[2019-02-23] MEDS ORDERED: GABAPENTIN 300 MG CAP PO SCH (21:00)
[2019-02-23] MEDS ORDERED: METOPROLOL TARTRATE 50 MG TAB PO SCH (21:00)
[2019-02-24] MEDS ORDERED: LEVOTHYROXINE 137 MCG TAB PO SCH (06:30)
[2019-02-24] MEDS ORDERED: ASPIRIN 81 MG PO SCH (09:00)
[2019-02-24] MEDS ORDERED: LISINOPRIL 10 MG TAB PO SCH (09:00)
== END 2019-02-23 15:10 | disposition home or self-care (01) ==
LOC: CATHCVL 05:53
PROVIDERS: ATTEND Internal Medicine Interventional Cardiology
DX: I25.10 Atherosclerotic heart disease of native coronary artery without angina pectoris (principal); I25.82 Chronic total occlusion of coronary artery; Z95.1 Presence of aortocoronary bypass graft; I48.92 Unspecified atrial flutter; Z95.2 Presence of prosthetic heart valve; I10 Essential (primary) hypertension; E11.9 Type 2 diabetes mellitus without complications; E78.00 Pure hypercholesterolemia, unspecified
CPT/HCPCS: 93455; 80048; C1760; C1894 ×2; C1769; J2001; J3010; Q9967

== ENCOUNTER 2019-05-18 14:22 | Inpatient (IN) | payer MEDICARE ==
[2019-05-18] MEDS ORDERED: ONDANSETRON 4 MG/2 ML VIAL IVP STA (14:48)
[2019-05-18] MEDS ORDERED: SODIUM CHLORIDE 0.9% 1,000 ML IV STA ×3 (14:48→16:49)
[2019-05-18] MEDS ORDERED: SODIUM CHLORIDE 0.9% 500 ML 500 ML IV STA (14:48)
[2019-05-18] MEDS ORDERED: PANTOPRAZOLE 40 MG/10 ML VIAL IVP STA (14:49)
--- NOTE | 2019-05-18 15:10 | ED ---
Nausea/Vomiting/Diarrhea HPI - General Chief complaint: Nausea/Vomiting/Diarrhea Stated complaint: weakness Time Seen by Provider: 05/18/19 14:46 Source: EMS, RN notes reviewed, old records reviewed Mode of arrival: EMS Limitations: no limitations - History of Present Illness Initial comments: This is a 78-year-old female the ER for evaluation. Patient resents today for evaluation regards to this. Patient has weakness nausea vomiting diarrhea. Not feeling well for lightheaded like she may pass out. Patient symptoms are mildly improved currently. Did have been incontinent does have significant surgical history as well as history of diabetes high blood pressure high cholesterol currently denying chest pain or shortness of breath. Patient does continue to complain of weakness MD complaint: nausea, vomiting, diarrhea, other (Weakness) -: days(s) Description of Vomiting: food contents, watery, bilious Description of Diarrhea: water, mucous Associated Abdominal Pain: No Radiation: none Severity: moderate Severity scale (1-10): 6 Consistency: constant Improves with: none Worsens with: none Context: history of abdominal surgery Associated Symptoms: loss of appetite, nausea/vomiting, weakness - Related Data Home Medications Medication Instructions Recorded Confirmed Gabapentin [Neurontin] 300 mg PO BID 09/29/16 05/18/19 Simvastatin [Zocor] 20 mg PO HS 09/29/16 05/18/19 Carbidopa-Levodopa 25-100 mg 1 tab PO QID 01/05/19 05/18/19 [Sinemet 25-100 mg] metFORMIN HCL [Glucophage] 1,000 mg PO BID 01/05/19 05/18/19 Benazepril [Lotensin] 10 mg PO DAILY 01/09/19 05/18/19 Amiodarone [Cordarone] 200 mg PO DAILY 05/18/19 05/18/19 Metoprolol Tartrate [Lopressor] 25 mg PO BID 05/18/19 05/18/19 glipiZIDE [Glucotrol] 5 mg PO AC-BRKFST 05/18/19 05/18/19 Previous Rx's Medication Instructions Recorded Apixaban [Eliquis] 5 mg PO BID #60 tab 01/09/19 Aspirin 81 mg PO DAILY chew 01/09/19 Furosemide [Lasix] 40 mg PO BID #60 tab 01/09/19 Levothyroxine Sodium [Synthroid] 137 mcg PO DAILY #30 tab 01/09/19 Naproxen [Naprosyn] 500 mg PO Q12HR PRN #0 01/09/19 Allergies Allergy/AdvReac Type Severity Reaction Status Date / Time No Known Allergies Allergy Verified 05/18/19 14:45 Review of Systems ROS Statement: Those systems with pertinent positive or pertinent negative responses have been documented in the HPI. ROS Other: All systems not noted in ROS Statement are negative. Past Medical History Past Medical History: Atrial Fibrillation, Coronary Artery Disease (CAD), Heart Failure, Diabetes Mellitus, Hyperlipidemia, Hypertension, Osteoarthritis (OA), Pneumonia, Thyroid Disorder Additional Past Medical History / Comment(s): Leaky valve, Parkinsons, neuropathy legs, Pneumonia 2 yrs ago. Constipation. History of Any Multi-Drug Resistant Organisms: None Reported Past Surgical History: Cholecystectomy, Coronary Bypass/CABG, Heart Catheterization Additional Past Surgical History / Comment(s): Aortic valve replacement with double cardiac bypass surgery(2010), bilateral cataracts removed. Cardioversion 02/05/19. Past Anesthesia/Blood Transfusion Reactions: No Reported Reaction Past Psychological History: No Psychological Hx Reported Smoking Status: Never smoker - Past Family History Father Family Medical History: Myocardial Infarction ([place]) Mother Family Medical History: Cancer Additional Family Medical History / Comment(s): in her sleep at 89. General Exam Limitations: no limitations General appearance: alert, in no apparent distress Head exam: Present: atraumatic, normocephalic, normal inspection Eye exam: Present: normal appearance, EOMI. Absent: scleral icterus, conjunctival injection, periorbital swelling ENT exam: Present: normal exam, mucous membranes dry Neck exam: Present: normal inspection. Absent: tenderness, meningismus, lymphadenopathy Respiratory exam: Present: normal lung sounds bilaterally. Absent: respiratory distress, wheezes, rales, rhonchi, stridor Cardiovascular Exam: Present: regular rate, normal rhythm, normal heart sounds. Absent: systolic murmur, diastolic murmur, rubs, gallop, clicks GI/Abdominal exam: Present: soft, normal bowel sounds. Absent: distended, tenderness, guarding, rebound, rigid Extremities exam: Present: normal inspection, full ROM, normal capillary refill. Absent: tenderness, pedal edema, joint swelling, calf tenderness Back exam: Present: normal inspection Neurological exam: Present: alert, oriented X3, CN II-XII intact Psychiatric exam: Present: normal affect, normal mood Skin exam: Present: warm, dry, intact, normal color. Absent: rash Course Vital Signs 05/18/19 05/18/19 05/18/19 14:24 16:00 16:30 Temperature 96.9 F L Pulse Rate 79 75 75 Respiratory 16 16 16 Rate Blood Pressure 97/56 99/42 94/48 O2 Sat by Pulse 97 93 L 94 L Oximetry - Reevaluation(s) Reevaluation #1: 05/18/19 17:25 Records reviewed Reevaluation #2: 05/18/19 17:25 Does have persistent incontinence with persistent diarrhea in the ED 05/18/19 17:26 - Consultations Consultation #1: Spoke with Dr. Coughlin who is agreeable for admission shows with Dr. Galindo who is agreeable for ICU admission Medical Decision Making - Medical Decision Making Plan I female presented today for evaluation of significant nausea vomiting and diarrhea. Significant gastroneuritis with severe infection, white count in the 20s, elevated lactic acid, patient be admitted will plan C. diff testing - Lab Data Result diagrams: 05/18/19 15:30 05/18/19 15:30 Lab Results 05/18/19 05/18/19 05/18/19 Range/Units 15:30 15:30 15:30 WBC 21.9 H (3.8-10.6) k/uL RBC 4.75 (3.80-5.40) m/uL Hgb 15.0 (11.4-16.0) gm/dL Hct 46.6 H (34.0-46.0) % MCV 98.1 (80.0-100.0) fL MCH 31.7 (25.0-35.0) pg MCHC 32.3 (31.0-37.0) g/dL RDW 15.0 (11.5-15.5) % Plt Count 233 (150-450) k/uL Neutrophils % 91 % Lymphocytes % 5 % Monocytes % 3 % Eosinophils % 1 % Basophils % 0 % Neutrophils # 19.9 H (1.3-7.7) k/uL Lymphocytes # 1.1 (1.0-4.8) k/uL Monocytes # 0.6 (0-1.0) k/uL Eosinophils # 0.1 (0-0.7) k/uL Basophils # 0.1 (0-0.2) k/uL PT (9.0-12.0) sec INR (<1.2) APTT (22.0-30.0) sec Sodium 136 L (137-145) mmol/L Potassium 6.0 H (3.5-5.1) mmol/L Chloride 94 L (98-107) mmol/L Carbon Dioxide 22 (22-30) mmol/L Anion Gap 20 mmol/L BUN 53 H (7-17) mg/dL Creatinine 2.19 H (0.52-1.04) mg/dL Est GFR (CKD-EPI)AfAm 24 (>60 ml/min/1.73 sqM) Est GFR (CKD-EPI)NonAf 21 (>60 ml/min/1.73 sqM) Glucose 335 H (74-99) mg/dL Plasma Lactic Acid Wild 9.0 H* (0.7-2.0) mmol/L Calcium 10.0 (8.4-10.2) mg/dL Phosphorus 6.4 H (2.5-4.5) mg/dL Magnesium 2.5 H (1.6-2.3) mg/dL Total Bilirubin 1.3 (0.2-1.3) mg/dL AST 41 H (14-36) U/L ALT 12 (9-52) U/L Alkaline Phosphatase 107 (38-126) U/L Creatine Kinase 53 (30-135) U/L Troponin I (0.000-0.034) ng/mL Total Protein 7.0 (6.3-8.2) g/dL Albumin 4.2 (3.5-5.0) g/dL Acetone, Qual Negative (Negative) 05/18/19 05/18/19 Range/Units 15:30 15:30 WBC (3.8-10.6) k/uL RBC (3.80-5.40) m/uL Hgb (11.4-16.0) gm/dL Hct (34.0-46.0) % MCV (80.0-100.0) fL MCH (25.0-35.0) pg MCHC (31.0-37.0) g/dL RDW (11.5-15.5) % Plt Count (150-450) k/uL Neutrophils % % Lymphocytes % % Monocytes % % Eosinophils % % Basophils % % Neutrophils # (1.3-7.7) k/uL Lymphocytes # (1.0-4.8) k/uL Monocytes # (0-1.0) k/uL Eosinophils # (0-0.7) k/uL Basophils # (0-0.2) k/uL PT 12.3 H (9.0-12.0) sec INR 1.2 H (<1.2) APTT 25.4 (22.0-30.0) sec Sodium (137-145) mmol/L Potassium (3.5-5.1) mmol/L Chloride (98-107) mmol/L Carbon Dioxide (22-30) mmol/L Anion Gap mmol/L BUN (7-17) mg/dL Creatinine (0.52-1.04) mg/dL Est GFR (CKD-EPI)AfAm (>60 ml/min/1.73 sqM) Est GFR (CKD-EPI)NonAf (>60 ml/min/1.73 sqM) Glucose (74-99) mg/dL Plasma Lactic Acid Wild (0.7-2.0) mmol/L Calcium (8.4-10.2) mg/dL Phosphorus (2.5-4.5) mg/dL Magnesium (1.6-2.3) mg/dL Total Bilirubin (0.2-1.3) mg/dL AST (14-36) U/L ALT (9-52) U/L Alkaline Phosphatase (38-126) U/L Creatine Kinase (30-135) U/L Troponin I 0.013 (0.000-0.034) ng/mL Total Protein (6.3-8.2) g/dL Albumin (3.5-5.0) g/dL Acetone, Qual (Negative) - EKG Data -: EKG Interpreted by Me (EKG shows sinus rhythm rate of 76, TN 162, QRS 136, QTc 549) - Radiology Data Radiology results: report reviewed (X-ray of the Abdominal series with chest is negative for acute disease), image reviewed Critical Care Time Critical Care Time: Yes Total Critical Care Time: 31 Disposition Clinical Impression: Dehydration, Gastroenteritis, Sepsis, ARF (acute renal failure) Disposition: ADMITTED IP TO THIS [facility] Condition: Serious Is patient prescribed a controlled substance at d/c from ED?: No Referrals: Deandre Bartholomew MD [Primary Care Provider] - 1-2 days
[2019-05-18 15:56] LABS: ALT 12 U/L (9-52); AST 41 U/L (14-36); African American GFR (CKD) 24 (>60 ml/min/1.73 sqM); Albumin 4.2 g/dL (3.5-5.0); Alkaline Phosphatase 107 U/L (38-126); Anion Gap 20 mmol/L; Blood Urea Nitrogen 53 mg/dL (7-17); Carbon Dioxide 22 mmol/L (22-30); Chloride 94 mmol/L (98-107); Creatine Kinase 53 U/L (30-135); Glucose 335 mg/dL (74-99); Magnesium 2.5 mg/dL (1.6-2.3); Phosphorus 6.4 mg/dL (2.5-4.5); Sodium 136 mmol/L (137-145); Total Bilirubin 1.3 mg/dL (0.2-1.3)
[2019-05-18 16:00] LABS: Basophils # (A) 0.1 k/uL (0-0.2); Basophils % (A) 0 %; Eosinophils # (A) 0.1 k/uL (0-0.7); Eosinophils % (A) 1 %; HCT 46.6 % (34.0-46.0); Lymphocytes # (A) 1.1 k/uL (1.0-4.8); Lymphocytes % (A) 5 %; MCH 31.7 pg (25.0-35.0); MCHC 32.3 g/dL (31.0-37.0); MCV 98.1 fL (80.0-100.0); Mean Platelet Volume 7.6; Monocytes # (A) 0.6 k/uL (0-1.0); Monocytes % (A) 3 %; Neutrophils # (A) 19.9 k/uL (1.3-7.7); Neutrophils % (A) 91 %; Platelet Count 233 k/uL (150-450); RBC 4.75 m/uL (3.80-5.40); WBC 21.9 k/uL (3.8-10.6)
[2019-05-18 16:22] LABS: INR 1.2 (<1.2); Partial Thromboplastin Time 25.4 sec (22.0-30.0); Prothrombin Time 12.3 sec (9.0-12.0)
--- NOTE | 2019-05-18 17:10 | XR ---
EXAMINATION TYPE: XR abdomen acute w cxr DATE OF EXAM: 05/18/2019 COMPARISON: 01/05/2019 chest HISTORY: 78-year-old female with weakness TECHNIQUE: Supine, upright, and left side down lateral decubitus views of the abdomen are obtained. FINDINGS: Frontal view of the chest shows median sternotomy wires are prosthetic aortic valve and mild cardiome cheryl. Mild interstitial prominence shows some improvement from prior exam. Strandy left basilar atele ctasis. No penny consolidation. No evidence for free intraperitoneal air. Cholecystectomy clips. No dilated small bowel. Mild to moderate stool in the right side of the abdomen. IMPRESSION: 1. Chest: Mild cardiomegaly and chronic appearing changes. No definite acute process. 2. Abdomen: No evidence for free air or bowel obstruction.
[2019-05-18] MEDS ORDERED: PIPERACILLIN-TAZOBACTAM 3.375 GM in SODIUM CHLORIDE 0.9% 100 ML IVPB STA (17:18)
[2019-05-18] MEDS ORDERED: NALOXONE 0.4 MG/ML 1 ML VIAL IV PRN (17:18)
[2019-05-18 17:54] LABS: Amorphous Sediment,Urine Occasional /hpf; Appearance,Urine Cloudy (Clear); Bilirubin,Urine Negative (Negative); Blood,Urine Negative (Negative); Color,Urine Yellow; Glucose,Urine (UA) Negative (Negative); Hyaline Casts,Urine 19 /lpf (0-2); Ketones,Urine Negative (Negative); Leukocyte Esterase,Urine Negative (Negative); Mucus,Urine Rare /hpf; Nitrite,Urine Negative (Negative); Protein,Urine 1+ (Negative); Specific Gravity,Urine 1.014 (1.001-1.035)
[2019-05-18] MEDS: SODIUM CHLORIDE 0.9% 1,000 ML IV SCH (18:00)
[2019-05-18] MEDS ORDERED: IOPAMIDOL CONTRAST (ORAL USE) VIAL PO PRN (19:44)
--- NOTE | 2019-05-18 20:26 | P.CNPUL ---
History of Present Illness Consult date: 05/18/19 Chief complaint: Acute diarrhea History of present illness: This is a pleasant 78-year-old female patient with known history of coronary artery disease, previous bypass surgery, previous aortic valve replacement, along with history of chronic atrial fibrillation and diabetes mellitus and hypothyroidism. The patient has been followed up by Dr. Berry on outpatient basis. The patient acutely became ill this morning. She woke up and she deve loped nausea and emesis and watery diarrhea which is going on for now. The patient is passing significant amount of liquidy bowel movements. No melanotic. No bright red blood per rectum. No hematemesis. No abdominal pain or distention. No channel history. No ingestion of any contaminated material or food products. No sick contacts. She lives with her daughter and her daughter is healthy and she did not have any gastrointestinal symptoms. She's been eating home food Throughout the past month. No recent antibiotic intake. Reports history of inflammatory bowel disease or infectious colitis. No history of any inflammatory bowel disease. In the ED, the patient a white cell count of 21. The patient and acute kidney injury with a creatinine of 2.1. Lactic acid level was at 9. Potassium level was at 6.0. The patient was found to be borderline hypotensive with a systolic blood pressure in the mid 80s. The patient was given a total of 3 L of IV fluids and the fourth is infusing for now. The patient is also on a maintenance 130 mL an hour normal saline. Resume amount of urine output. She underwent a straight cathetered UA essentially negative with +1 protein. Stool for C. diff is negative. Blood sugar was elevated at 3 on 35. Nevertheless the acetone was negative. She is awake and alert. She is following commands and answering questions. She is currently on normal saline at the rate of 1 30 mL an hour. No fever. No chills. No night sweats. No other complaints otherwise for now. Review of Systems Constitutional: Reports fatigue, Reports weakness Eyes: denies as per HPI, denies blurred vision, denies bulging eye, denies decreased vision, denies diplopia, denies discharge, denies dry eye, denies irritation, denies itching, denies pain, denies photophobia, denies loss of peripheral vision, denies loss of vision, denies tunnel vision/blind spots Ears: deny: decreased hearing, ear discharge, earache, tinnitus Ears, nose, mouth and throat: Denies headache, Denies sore throat Breasts: absent: as per HPI, change in shape, gynecomastia, masses, nipple discharge, pain, skin changes, swelling Cardiovascular: Denies chest pain, Denies shortness of breath Respiratory: Reports as per HPI Gastrointestinal: Reports as per HPI, Reports diarrhea, Reports nausea, Reports vomiting Genitourinary: Reports as per HPI Menstruation: Reports as per HPI Musculoskeletal: Reports as per HPI Musculoskeletal: absent: ankle pain, ankle stiffness, ankle swelling, as per HPI, elbow pain, elbow stiffness, elbow swelling, foot pain, foot stiffness, lula t swelling, hand pain, hand stiffness, hand swelling, hip pain, hip stiffness, hip swelling, knee pain, knee stiffness, knee swelling, shoulder pain, shoulder stiffness, shoulder swelling, wrist pain, wrist stiffness, wrist swelling Integumentary: Denies pruritus, Denies rash Neurological: Reports as per HPI, Reports weakness Psychiatric: Reports as per HPI Endocrine: Reports as per HPI, Reports fatigue Hematologic/Lymphatic: Reports as per HPI Allergic/Immunologic: Reports as per HPI Past Medical History Past Medical History: Atrial Fibrillation, Coronary Artery Disease (CAD), Heart Failure, Diabetes Mellitus, Hyperlipidemia, Hypertension, Osteoarthritis (OA), Pneumonia, Thyroid Disorder Additional Past Medical History / Comment(s): Coronary artery disease, previous coronary artery bypass surgery,cardiac catheterization from February 2019 showing subtotally occluded LAD with competitive flow from saphenous vein graft and mild disease of the RCA, chronic atrial fibrillation, aortic valve replacement, hypertension, hyperlipidemia, diabetes mellitus, Parkinson's disease, peripheral neuropathy, previous bouts of pneumonia, hypothyroidism and osteoarthritis History of Any Multi-Drug Resistant Organisms: None Reported Past Surgical History: Cholecystectomy, Coronary Bypass/CABG, Heart Catheterization Additional Past Surgical History / Comment(s): Aortic valve replacement with double cardiac bypass surgery(2010), bilateral cataracts removed. Cardioversion 02/05/19. Past Anesthesia/Blood Transfusion Reactions: No Reported Reaction Past Psychological History: No Psychological Hx Reported Smoking Status: Never smoker - Past Family History Father Family Medical History: Myocardial Infarction ([place]) Mother Family Medical History: Cancer Additional Family Medical History / Comment(s): in her sleep at 89. Medications and Allergies Home Medications Medication Instructions Recorded Confirmed Type Gabapentin [Neurontin] 300 mg PO BID 09/29/16 05/18/19 History Simvastatin [Zocor] 20 mg PO HS 09/29/16 05/18/19 History Carbidopa-Levodopa 25-100 mg 1 tab PO QID 01/05/19 05/18/19 History [Sinemet 25-100 mg] metFORMIN HCL [Glucophage] 1,000 mg PO BID 01/05/19 05/18/19 History Apixaban [Eliquis] 5 mg PO BID #60 tab 01/09/19 05/18/19 Rx Aspirin 81 mg PO DAILY chew 01/09/19 05/18/19 Rx Benazepril [Lotensin] 10 mg PO DAILY 01/09/19 05/18/19 History Furosemide [Lasix] 40 mg PO BID #60 tab 01/09/19 05/18/19 Rx Levothyroxine Sodium [Synthroid] 137 mcg PO DAILY #30 tab 01/09/19 05/18/19 Rx Naproxen [Naprosyn] 500 mg PO Q12HR PRN #0 01/09/19 05/18/19 Rx Amiodarone [Cordarone] 200 mg PO DAILY 05/18/19 05/18/19 History Metoprolol Tartrate [Lopressor] 25 mg PO BID 05/18/19 05/18/19 History glipiZIDE [Glucotrol] 5 mg PO AC-BRKFST 05/18/19 05/18/19 History Allergies Allergy/AdvReac Type Severity Reaction Status Date / Time No Known Allergies Allergy Verified 05/18/19 14:45 Physical Exam Vitals: Vital Signs Temp Pulse Resp BP Pulse Ox 05/18/19 19:00 78 95/49 95 05/18/19 18:30 77 117/52 96 05/18/19 18:00 76 102/60 98 05/18/19 17:30 76 20 109/57 96 05/18/19 16:30 75 16 94/48 94 L 05/18/19 16:00 75 16 99/42 93 L 05/18/19 14:24 96.9 F L 79 16 97/56 97 Intake and Output 05/18/19 05/18/19 05/18/19 06:59 14:59 22:59 Other: # Bowel Movements 1 Weight 88.36 kg The patient appeared well nourished and normally developed. Vital signs as documented. Head exam is unremarkable. No scleral icterus or corneal arcus noted. Neck is without jugular venous distension, thyromegaly, or carotid bruits. Carotid upstrokes are brisk bilaterally. Lungs are clear to auscultation and percussion. Cardiac exam reveals the PMI to be normally sized and situated. Rhythm is regular. First and second heart sounds normal. No murmurs, rubs or gallops. The patient had a thoracotomy scar over the anterior chest area. There is a faint grade 3/6 systolic ejection murmur heard over the apex. There is also radiating to the neck area. Abdominal exam reveals normal bowel sounds, no masses, no organomegaly and no aortic enlargement. Extremities are non edematous and both femoral and pedal pulses are normal.Examination of the skin revealed no evidence of significant rashes, suspicious appearing nevi or other concerning lesions. Neurologically the patient is awake and alert and is no focal neurological deficits. Results - Laboratory Findings CBC and BMP: 05/18/19 15:30 05/18/19 15:30 PT/INR, D-dimer PT 12.3 sec (9.0-12.0) H 05/18/19 15:30 INR 1.2 (<1.2) H 05/18/19 15:30 Abnormal lab findings: Abnormal Labs 05/18/19 05/18/19 05/18/19 15:30 15:30 15:30 WBC 21.9 H Hct 46.6 H Neutrophils # 19.9 H PT INR Sodium 136 L Potassium 6.0 H Chloride 94 L BUN 53 H Creatinine 2.19 H Glucose 335 H Plasma Lactic Acid Wild 9.0 H* Phosphorus 6.4 H Magnesium 2.5 H AST 41 H Urine Appearance Urine Protein Amorphous Sediment Hyaline Casts Urine Mucus 05/18/19 05/18/19 05/18/19 15:30 17:25 19:42 WBC Hct Neutrophils # PT 12.3 H INR 1.2 H Sodium Potassium Chloride BUN Creatinine Glucose Plasma Lactic Acid Wild 7.2 H* Phosphorus Magnesium AST Urine Appearance Cloudy H Urine Protein 1+ H Amorphous Sediment Occasional H Hyaline Casts 19 H Urine Mucus Rare H - Diagnostic Findings Chest x-ray: image reviewed Assessment and Plan Plan: 1 acute gastroenteritis, exact cause is not clear. Rule out viral gastroenteritis. Rule out bacterial causes. Doubt any inflammatory bowel disease. Doubt ischemic colitis. Doubt C. diff colitis. 2 acute lactic acidosis 3 acute kidney injury secondary to above 4 acute leukocytosis secondary to above 5 hypotension secondary to above 6 coronary artery disease with previous bypass surgery and recent cardiac catheterization from February 2019 showing subtotal occluded LAD with competitive flow from SVG and mild RCA disease with a SVG to RCA and LAD being both patent 7 aortic valve replacement 8 secondary pulmonary hypertension 9 chronic atrial fibrillation maintained on long-term anticoagulation with Eliquis 10 diabetes mellitus 11 hyperlipidemia 13 hypothyroidism 14 Parkinson's disease Plan Continue fluid resuscitation with normal saline. The patient was given a total of 4 L of IV fluid. Insert the Tatum catheter. Urine cultures. Blood cultures. Stool cultures. IV Zosyn. CAT scan of the abdomen with no contrast. GI consultation. Will admit this patient in ICU. No need for pressors at this point in time unless there is a further drop in blood pressure and there is suboptimal response to IV fluids. Monitor the lactic acid level. Put the pat ient on signs. Insulin coverage. May need to start insulin drip for blood sugar control. Resume Synthroid. Resume the rest of the oral medication probably the next 24 hours once the diarrhea subsides. We'll continue to follow. The patient be chest to the intensive care units.
[2019-05-18] MEDS ORDERED: ONDANSETRON 4 MG/2 ML VIAL IVP PRN (20:28)
[2019-05-18 20:58] LABS: Albumin 3.4 g/dL (3.5-5.0); Calcium 8.9 mg/dL (8.4-10.2); Potassium 5.7 mmol/L (3.5-5.1); Total Bilirubin 0.9 mg/dL (0.2-1.3); Total Protein 5.9 g/dL (6.3-8.2)
[2019-05-18] MEDS ORDERED: DEXTROSE 50% SYRINGE 50 ML IVP STA (21:16)
[2019-05-18] MEDS ORDERED: INSULIN REGULAR 100 UNIT/ML VIAL IV ONE (21:16)
[2019-05-18 21:26] LABS: Glucose,Whole Blood 183 mg/dL (75-99)
--- NOTE | 2019-05-18 21:52 | P.HPIM ---
History of Present Illness H&P Date: 05/18/19 Chief Complaint: diarrhea, vomiting 78-year-old female with history of CAD, CABG, aortic valve replacement, paroxysmal A. fib on Eliquis., diabetes mellitus, diastolic heart failurewith most recent left ventricular ejection fraction of 5560 percent Patient has been on her baseline status of health feeling great up until this morning she woke up at breakfast after that she started throwing up will sudden nonbilious nonbloody, and then started having frequent diarrhea denies any melena or bloody bowel movements. She denies any history of GI bleeding. She denies any associated abdominal pain. Denies any fevers or chills. Denies any recent traveling or sick contacts. Denies any unsanitary food or drink. At home patient started feeling dizzy and extremely weak and tired for which she called her daughter who lives with her and ask her to be taken to the hospital. She denies any urinary symptoms of dysuria or changes in color or any abnormal odor. Denies any chest pain or trouble breathing or any coughing. Denies any upper respiratory infection like symptoms. Denies any history of GI bleed or inflammatory bowel disease. Patient reports that her appetite has been poor recently but she drinks good amount of water on daily basis. In the ED she was found to be hypotensive with elevated blood sugar and and elevated creatinine and potassium. also found to have elevated white count and lactic acidosis. Patient was fluid resuscitated proper cultures were taken started on IV antibiotics and was admitted to the ICU due to hypotension initially which has improved with fluid resuscitation during my interview in the ER and after fluid resuscitation patient indicated that she is feeling better already Review of Systems Pertinent positives as noted in HPI. All other systems were reviewed and are negative Past Medical History Past Medical History: Atrial Fibrillation, Coronary Artery Disease (CAD), Heart Failure, Diabetes Mellitus, Hyperlipidemia, Hypertension, Osteoarthritis (OA), Pneumonia, Thyroid Disorder Additional Past Medical History / Comment(s): Leaky valve, Parkinsons, neuropathy legs, Pneumonia 2 yrs ago. Constipation. History of Any Multi-Drug Resistant Organisms: None Reported Past Surgical History: Cholecystectomy, Coronary Bypass/CABG, Heart Catheterization Additional Past Surgical History / Comment(s): Aortic valve replacement with double cardiac bypass surgery(2010), bilateral cataracts removed. Cardioversion 02/05/19. Past Anesthesia/Blood Transfusion Reactions: No Reported Reaction Past Psychological History: No Psychological Hx Reported Smoking Status: Never smoker - Past Family History Father Family Medical History: Myocardial Infarction ([place]) Mother Family Medical History: Cancer Additional Family Medical History / Comment(s): in her sleep at 89. Medications and Allergies Home Medications Medication Instructions Recorded Confirmed Type Gabapentin [Neurontin] 300 mg PO BID 09/29/16 05/18/19 History Simvastatin [Zocor] 20 mg PO HS 09/29/16 05/18/19 History Carbidopa-Levodopa 25-100 mg 1 tab PO QID 01/05/19 05/18/19 History [Sinemet 25-100 mg] metFORMIN HCL [Glucophage] 1,000 mg PO BID 01/05/19 05/18/19 History Apixaban [Eliquis] 5 mg PO BID #60 tab 01/09/19 05/18/19 Rx Aspirin 81 mg PO DAILY chew 01/09/19 05/18/19 Rx Benazepril [Lotensin] 10 mg PO DAILY 01/09/19 05/18/19 History Furosemide [Lasix] 40 mg PO BID #60 tab 01/09/19 05/18/19 Rx Levothyroxine Sodium [Synthroid] 137 mcg PO DAILY #30 tab 01/09/19 05/18/19 Rx Naproxen [Naprosyn] 500 mg PO Q12HR PRN #0 01/09/19 05/18/19 Rx Amiodarone [Cordarone] 200 mg PO DAILY 05/18/19 05/18/19 History Metoprolol Tartrate [Lopressor] 25 mg PO BID 05/18/19 05/18/19 History glipiZIDE [Glucotrol] 5 mg PO AC-BRKFST 05/18/19 05/18/19 History Allergies Allergy/AdvReac Type Severity Reaction Status Date / Time No Known Allergies Allergy Verified 05/18/19 14:45 Physical Exam Vitals: Vital Signs Temp Pulse Resp BP Pulse Ox 05/18/19 19:00 78 95/49 95 05/18/19 18:30 77 117/52 96 05/18/19 18:00 76 102/60 98 05/18/19 17:30 76 20 109/57 96 05/18/19 16:30 75 16 94/48 94 L 05/18/19 16:00 75 16 99/42 93 L 05/18/19 14:24 96.9 F L 79 16 97/56 97 Intake and Output 05/18/19 05/18/19 05/18/19 06:59 14:59 22:59 Other: # Bowel Movements 1 Weight 88.36 kg Constitutional: No acute distress, conversant, pleasant Eyes: Anicteric sclerae, moist conjunctiva, no lid-lag Pupils equal round reactive to light ENMT: NC/AT Oropharynx clear, no erythema, exudates Neck: Supple, FROM, no masses, or JVD No carotid bruits No thyromegaly Lungs: Clear to auscultation Clear to percussion Normal respiratory effort, no accessory muscle use Cardiovascular: Heart regular in rate and rhythm, systolic murmur radiating to bilateral carotids, NO GALLOPS OR RUBS No peripheral edemacode E refill is immediate Abdominal: Soft Nontender, no guarding, rebound or rigidity Abdomen moving with respiration Normoactive bowel sounds No hepatomegaly, No splenomegaly No palpable mass No abdominal wall hernia noted Skin: bilateral feet are cold to the touch however capillary refill is immediate, otherwise Normal temperature, tone, texture, turgor No induration No subcutaneous nodules No rash, lesions No ulcers Extremities: No digital cyanosis No clubbing Pedal pulses intact and symmetrical Radial pulses intact and symmetrical No calf tenderness Psychiatric: Alert and oriented to person, place and time Appropriate affect fair judgment Neuro Muscles Strength 4/5 in all 4 extremities Sensation to light touch grossly present throughout Cranial nerves II-XII grossly intact No focal sensory deficits Lymphatics: no palpable cervical or supraclavicular , or inguinal lymph nodes Results CBC & Chem 7: 05/18/19 15:30 05/18/19 19:48 Labs: Abnormal Lab Results - Last 24 Hours (Table) 05/18/19 05/18/19 05/18/19 Range/Units 15:30 15:30 15:30 WBC 21.9 H (3.8-10.6) k/uL Hct 46.6 H (34.0-46.0) % Neutrophils # 19.9 H (1.3-7.7) k/uL PT (9.0-12.0) sec INR (<1.2) Sodium 136 L (137-145) mmol/L Potassium 6.0 H (3.5-5.1) mmol/L Chloride 94 L (98-107) mmol/L BUN 53 H (7-17) mg/dL Creatinine 2.19 H (0.52-1.04) mg/dL Glucose 335 H (74-99) mg/dL Plasma Lactic Acid Wild 9.0 H* (0.7-2.0) mmol/L Phosphorus 6.4 H (2.5-4.5) mg/dL Magnesium 2.5 H (1.6-2.3) mg/dL AST 41 H (14-36) U/L Urine Appearance (Clear) Urine Protein (Negative) Amorphous Sediment (None) /hpf Hyaline Casts (0-2) /lpf Urine Mucus (None) /hpf 05/18/19 05/18/19 Range/Units 15:30 17:25 WBC (3.8-10.6) k/uL Hct (34.0-46.0) % Neutrophils # (1.3-7.7) k/uL PT 12.3 H (9.0-12.0) sec INR 1.2 H (<1.2) Sodium (137-145) mmol/L Potassium (3.5-5.1) mmol/L Chloride (98-107) mmol/L BUN (7-17) mg/dL Creatinine (0.52-1.04) mg/dL Glucose (74-99) mg/dL Plasma Lactic Acid Wild (0.7-2.0) mmol/L Phosphorus (2.5-4.5) mg/dL Magnesium (1.6-2.3) mg/dL AST (14-36) U/L Urine Appearance Cloudy H (Clear) Urine Protein 1+ H (Negative) Amorphous Sediment Occasional H (None) /hpf Hyaline Casts 19 H (0-2) /lpf Urine Mucus Rare H (None) /hpf Assessment and Plan Assessment: 78-year-old female with history of coronary artery disease status post CABG, diastolic heart failure left ventricular ejection fraction 55-60%, diabetes, A. fib on Eliquis, admitted as an inpatient with anticipated length of stay more than 2 midnight due to sepsis with hypotension secondary to possible gastroenteritis , acute kidney injury, hyperkalemia, elevated blood sugar,rule out bacterial infection. Plan: sepsis with hypotension secondary to underlying gastroenteritis rule out bacterial infection acute kidney injury most likely secondary to prerenal ATN from dehydration secondary to diarrhea and vomiting Hyperkalemia Hyperglycemia plan C. diff was negative UA was negative Chest x-ray unremarkable Patient is sent to have acute viral gastroenteritis need to rule out bacterial infection Started on Zosyn after obtaining proper cultures Follow-up blood cultures Follow-up stool cultures aggressive IV fluid hydration and resuscitation Avoid nephrotoxic meds, Lasix and DEBBIE inhibitor on hold Continue with metoprolol with hold parameters for systolic blood pressure less than 100 Insulin sliding scale Insulin IV once with D50 for hyperkalemia close monitoring of vital signs Repeat potassium level Repeat lactic acid level which showed improvement after initial resuscitation Continue with IV fluid hydration Tatum catheter for accurate urine output Patient admitted to the ICU for close monitoring Consults critical care Chronic conditions Diastolic CHF currently compensated Valvular heart disease CAD status post CABG CK D stage III Diabetes mellitus currently with hyperglycemia Hypertension currently hypotensive secondary to above Hypothyroid Paroxysmal A. fib Parkinson disease resume home medications for above, hold nephrotoxic meds Preformed a thorough record review from recent hospitalization for which she had left heart cath recommendations made for maximal medical therapy no intervention was performed during that test CODE STATUS:no code DVT prophylaxis: patient on Eliquis for A. fib Discussed with: Patient, ER, RN Anticipated length of stay more than [address]: pending clinical course A total of 60minutes was spent on the care of this complex patient more than 50% of the time was spent in counseling and care coordination. Sepsis - Sepsis Sepsis Focused Exam #1 Sepsis Focused Exam Date: 05/18/19 Sepsis Focused Exam Time: 19:45 Sepsis Focused Exam Complete: Yes Vital Signs & RN Notes Reviewed: Yes Capillary Refill: < 2 Seconds: Fingers, Toes Peripheral Pulses: Normal: Radial (R), Radial (L), Posterior Tibialis (R), Posterior Tibialis (L), Dorsalis Pedis (R), Dorsalis Pedis (L) Skin Color: Normal for Patient Respiratory Exam: normal lung sounds Cardiovascular Exam: regular rate, systolic murmur
--- NOTE | 2019-05-18 22:03 | CT ---
EXAMINATION TYPE: CT abdomen pelvis wo con DATE OF EXAM: 05/18/2019 COMPARISON: None HISTORY: Vomiting and weakness. CT DLP: 1017.4 mGycm Automated exposure control for dose reduction was used. TECHNIQUE: Helical acquisition of images was performed from the lung bases through the pelvis. FINDINGS: Within the limitation of noncontrast CT the following observations are made. LUNG BASES: No significant abnormality is appreciated. LIVER/GB: No significant abnormality is appreciated. PANCREAS: No significant abnormality is seen. SPLEEN: No significant abnormality is seen. ADRENALS: No significant abnormality is seen. KIDNEYS: No significant abnormality is seen. PERITONEAL CAVITY: No pneumoperitoneum or peritoneal fluid. RETROPERITONEAL ADENOPATHY: None visualized REPRODUCTIVE ORGANS: No significant abnormality is seen URINARY BLADDER: No significant abnormality is seen. PELVIC ADENOPATHY: None visualized. OSSEOUS STRUCTURES: No significant abnormality is seen. BOWEL: There is moderate-plus indistinctness and circumferential mural thickening of the entire violetta th of the distal half of the transverse colon, the entire length of the descending colon, and the ent jackie length of the sigmoid colon, consistent with a radiographic pattern of inflammatory/infectious co litis. There is no pneumatosis. No pneumoperitoneum. No gas within the extraperitoneal spaces. IMPRESSION: CT PATTERN SUGGESTS INFLAMMATORY/INFECTIOUS COLITIS.
[2019-05-18] MEDS: INSULIN ASPART (NovoLOG) 100 UNIT/ML VIAL SQ SCH (23:05)
[2019-05-18] MEDS: CARBIDOPA-LEVODOPA 25-100 MG 1 EACH TAB PO SCH (23:07)
[2019-05-18] MEDS: APIXABAN 5 MG TAB PO SCH (23:07)
[2019-05-18] MEDS: METOPROLOL TARTRATE 50 MG TAB PO SCH (23:09)
[2019-05-18] MEDS: PIPERACILLIN-TAZOBACTAM 3.375 GM in SODIUM CHLORIDE 0.9% 100 ML IVPB SCH (23:10)
[2019-05-18 23:14] LABS: Glucose,Whole Blood 123 mg/dL (75-99)
[2019-05-19] MEDS ORDERED: SODIUM CHLORIDE 0.9% 2,000 ML IV ONE (01:45)
[2019-05-19] MEDS: INSULIN ASPART (NovoLOG) 100 UNIT/ML VIAL SQ SCH ×6 (01:58→22:31)
[2019-05-19 02:49] LABS: Basophils % (A) 0 %; Eosinophils % (A) 0 %; HCT 37.3 % (34.0-46.0); Lymphocytes # (A) 1.1 k/uL (1.0-4.8); Lymphocytes % (A) 6 %; MCH 31.4 pg (25.0-35.0); MCHC 32.3 g/dL (31.0-37.0); MCV 97.4 fL (80.0-100.0); Mean Platelet Volume 7.2; Monocytes # (A) 0.5 k/uL (0-1.0); Monocytes % (A) 3 %; Neutrophils # (A) 15.2 k/uL (1.3-7.7); Neutrophils % (A) 89 %; Platelet Count 167 k/uL (150-450); RBC 3.83 m/uL (3.80-5.40); RDW 13.2 % (11.5-15.5)
[2019-05-19 02:57] LABS: Albumin 2.9 g/dL (3.5-5.0); Calcium 8.4 mg/dL (8.4-10.2); Phosphorus 6.5 mg/dL (2.5-4.5); Potassium 5.5 mmol/L (3.5-5.1); Total Bilirubin 0.7 mg/dL (0.2-1.3); Total Protein 5.3 g/dL (6.3-8.2)
[2019-05-19] MEDS ORDERED: DEXTROSE 10 % IN WATER 150 ML IV ONE (03:16)
[2019-05-19] MEDS: SODIUM CHLORIDE 0.9% 1,000 ML IV SCH ×4 (03:24→18:09)
[2019-05-19 03:40] LABS: Glucose,Whole Blood 64 mg/dL (75-99)
[2019-05-19 03:58] LABS: Glucose,Whole Blood 94 mg/dL (75-99)
[2019-05-19] MEDS: AMIODARONE 200 MG TAB PO SCH ×2 (08:17→20:16)
[2019-05-19] MEDS: LEVOTHYROXINE 137 MCG TAB PO SCH (08:17)
[2019-05-19 08:27] LABS: Glucose,Whole Blood 79 mg/dL (75-99)
[2019-05-19] MEDS: PIPERACILLIN-TAZOBACTAM 3.375 GM in SODIUM CHLORIDE 0.9% 100 ML IVPB SCH ×2 (08:27→20:17)
[2019-05-19] MEDS: ASPIRIN 81 MG PO SCH (08:28)
[2019-05-19] MEDS: APIXABAN 5 MG TAB PO SCH ×2 (08:28→20:16)
[2019-05-19] MEDS: GABAPENTIN 300 MG CAP PO SCH ×2 (08:28→20:16)
[2019-05-19] MEDS: CARBIDOPA-LEVODOPA 25-100 MG 1 EACH TAB PO SCH ×4 (08:28→20:16)
[2019-05-19] MEDS ORDERED: PANTOPRAZOLE 40 MG/10 ML VIAL IV SCH (09:00)
[2019-05-19] MEDS: METOPROLOL TARTRATE 50 MG TAB PO SCH ×2 (09:26→20:16)
[2019-05-19] MEDS: NOREPINEPHRINE 4 MG in SODIUM CHLORIDE 0.9% 250 ML IV SCH (09:28)
[2019-05-19] MEDS ORDERED: FUROSEMIDE 10 MG/ML 4 ML VIAL IV STA (11:03)
[2019-05-19 11:53] LABS: Glucose,Whole Blood 76 mg/dL (75-99)
--- NOTE | 2019-05-19 12:14 | CONS ---
CONSULTATION REASON FOR CONSULT: Renal failure. HISTORY OF PRESENT ILLNESS: This patient is a 78-year-old female who was admitted to the hospital with complaints of weakness. She has had diarrhea ongoing for a few days prior to admission. Patient had emesis early this morning and that is which was yesterday and therefore she came into the hospital. Blood pressure was low. The patient has been started on Levophed. There is no prior history of kidney disease. The patient denies use of any nonsteroidal anti-inflammatory agents prior. LAB ON ADMISSION: Lactic acid was elevated at 9.0 on initial admission. It is down to 2.2. The patient has received about 6 L of fluid resuscitation. Urine output has dropped about 10 mL an hour now. Creatinine was 2.1 on initial admission. It is up to 2.4 now. Previous creatinine on 04/15/2019 was 1.5 mg/dL. The patient is maintained on Levophed and IV fluids at 125 mL an hour. PAST MEDICAL HISTORY: Hypertension, osteoarthritis, coronary artery disease, type 2 diabetes, hyperlipidemia, hypothyroidism, history of atrial fibrillation, Parkinson disease, neuropathy. PAST SURGICAL HISTORY: Cholecystectomy, coronary artery bypass surgery, cardiac catheterization, aortic valve replacement, cataract surgery, cardioversion. SOCIAL HISTORY: Negative for smoking, drug abuse or alcohol abuse. REVIEW OF SYSTEMS: As per HPI. Other systems negative. No history of fevers or chills or cough. MEDICATIONS: Medications at home include Neurontin, Zocor, Sinemet, Glucophage, Eliquis, aspirin, Lotensin, Lasix Naprosyn, Synthroid, Lopressor, Glucotrol. ALLERGIES: None. PHYSICAL EXAMINATION: Patient is comfortable, awake. She is not in any acute distress. She is weak. Blood pressure is 90/55, heart rate 92 per minute. She is afebrile. Examination of the heart S1, S2. Examination of the lungs, bilateral breath sounds are heard. Abdomen is soft, nontender. Examination lower extremities shows no significant edema [employer] exam grossly intact lab shows sodium 138, potassium 5.5, CO2 is 19, BUN 55, serum creatinine 2.4, phosphorus 6.5. Lactic acid down to 2.2. UA shows 1+ protein, no blood, no cells noted. C diff toxin is negative. ASSESSMENT: 1. Acute kidney injury secondary to hypotension, hypoperfusion. Currently oliguric. Continue IV fluids, I will give her a dose of IV Lasix. I did see Naprosyn on her home med list in and if patient has been taking that, it has definitely contributed to the acute kidney injury as well. Continue to hold off on the angiotensin receptor blockers for now. 2. Hyperkalemia associated with acute kidney injury, use of Arbs as well as NSAIDs prior to admission, currently slightly improved. He will repeat electrolytes this evening. The expect improvement in serum potassium with improved urine output. 3. Non-gap metabolic acidosis secondary to renal failure along with anion gap metabolic acidosis on initial admission secondary to lactic acidosis. 4. Hyperphosphatemia from renal failure, add phosphate binders when patient is eating. 5. Chronic kidney disease. Previous creatinine was 1.3 in March of 2019, most likely secondary to nephrosclerosis, NKF stage III. PLAN: IV Lasix x1. Continue with IV fluids. Add phosphate binders and continue to hold off on NSAIDs and angiotensin receptor blockers. Try to wean down Levophed depending on the blood pressures and repeat labs, evening and in a.m. Thank you for this consultation. Will continue to follow the patient with you during her hospitalization. MMODL / IJN: [id number] /
--- NOTE | 2019-05-19 12:23 | P.PN ---
Subjective Progress Note Date: 05/19/19 Patient seen and examined follow-up, is awake and alert and denies any lightheadedness or dizziness, complaints of mild abdominal pain. Patient hypoglycemic at 60 given D10 blood sugar up to 94 . Has received a greater than 6 L of IV fluids since admission , he urine output falling off and patient hypo tensive this morning 77/37 with a map of 56 . White count trending down to 17 from 22. Serum potassium 5.5 serum bicarb 19 creatinine 2.4. Plasma lactate down to 2.2 from 9. C. diff negative. CT suggesting inflammatory/infectious colitis. Patient afebrile Objective - Vital Signs Vital signs: Vital Signs Temp 98.4 F 05/19/19 08:00 Pulse 86 05/19/19 11:45 Resp 23 05/19/19 11:45 BP 97/48 05/19/19 11:45 Pulse Ox 93 L 05/19/19 11:45 Intake & Output 05/18/19 05/19/19 05/19/19 18:59 06:59 18:59 Intake Total 3320 640 Output Total 180 52 Balance 3140 588 Weight 88.36 kg 94.3 kg Intake: IV 3190 640 Dextrose 10 % in Water 150 150 ml @ 999 mls/hr IV ONCE ONE Rx#:[id number] Piperacillin-Tazobactam 3 100 .375 gm In Sodium Chloride 0.9% 100 ml @ 25 mls/hr IVPB Q8HR [facility] Rx# :[id number] Sodium Chloride 0.9% 1, 1040 390 000 ml @ 130 mls/hr IV . Q7H42M [facility] Rx#:[id number] Sodium Chloride 0.9% 1, 150 000 ml @ 150 mls/hr IV . Q6H40M [facility] Rx#:[id number] Sodium Chloride 0.9% 2, 2000 000 ml @ 999 mls/hr IV . Q2H1M [facility] Rx#:[id number] Intake, IV Titration 130 Amount Dextrose 10 % in Water 130 150 ml @ 999 mls/hr IV ONCE ONE Rx#:[id number] Output: Urine 180 52 Other: Voiding Method Indwelling Catheter Indwelling Catheter # Bowel Movements 2 1 - Exam Constitutional: No acute distress, conversant, pleasant Eyes: Anicteric sclerae, moist conjunctiva, no lid-lag, PERRLA ENMT: NC/AT,Oropharynx clear, no erythema, exudates Neck:Supple, FROM, no masses, or JVD, No carotid bruits; No thyromegaly Lungs: Clear to auscultation, Clear to percussion, Normal respiratory effort, no accessory muscle use Cardiovascular: Heart regular in rate and rhythm, No murmurs, gallops, or rubs no peripheral edema Abdominal: Soft Nontender, nom distended, no guarding, no rebound or rigidity, Normoactive bowel sounds No hepatomegaly, No splenomegaly, No palpable mass No abdominal wall hernia noted Skin: Normal temperature, tone, texture, turgor, No induration No subcutaneous nodules, No rash, lesions, No ulcers Extremities:No digital cyanosis No clubbing, Pedal pulses intact and symmetrical Radial pulses intact and symmetrical Normal gait and station, No c fpc tenderness Psychiatric: Alert and oriented to person, place and time, Appropriate affect Intact judgement Neuro: Muscles Strength 5/5 in all 4 extremities, Sensation to light touch grossly present throughout, Cranial nerves II-XII grossly intact. No focal sensory deficits - Labs CBC & Chem 7: 05/19/19 02:25 05/19/19 02:34 Labs: Abnormal Lab Results - Last 24 Hours (Table) 05/18/19 05/18/19 05/18/19 Range/Units 15:30 15:30 15:30 WBC 21.9 H (3.8-10.6) k/uL Hct 46.6 H (34.0-46.0) % Neutrophils # 19.9 H (1.3-7.7) k/uL PT (9.0-12.0) sec INR (<1.2) Sodium 136 L (137-145) mmol/L Potassium 6.0 H (3.5-5.1) mmol/L Chloride 94 L (98-107) mmol/L Carbon Dioxide (22-30) mmol/L BUN 53 H (7-17) mg/dL Creatinine 2.19 H (0.52-1.04) mg/dL Glucose 335 H (74-99) mg/dL POC Glucose (mg/dL) (75-99) mg/dL Plasma Lactic Acid Wild 9.0 H* (0.7-2.0) mmol/L Phosphorus 6.4 H (2.5-4.5) mg/dL Magnesium 2.5 H (1.6-2.3) mg/dL AST 41 H (14-36) U/L Total Protein (6.3-8.2) g/dL Albumin (3.5-5.0) g/dL Urine Appearance (Clear) Urine Protein (Negative) Amorphous Sediment (None) /hpf Hyaline Casts (0-2) /lpf Urine Mucus (None) /hpf 05/18/19 05/18/19 05/18/19 Range/Units 15:30 17:25 19:42 WBC (3.8-10.6) k/uL Hct (34.0-46.0) % Neutrophils # (1.3-7.7) k/uL PT 12.3 H (9.0-12.0) sec INR 1.2 H (<1.2) Sodium (137-145) mmol/L Potassium (3.5-5.1) mmol/L Chloride (98-107) mmol/L Carbon Dioxide (22-30) mmol/L BUN (7-17) mg/dL Creatinine (0.52-1.04) mg/dL Glucose (74-99) mg/dL POC Glucose (mg/dL) (75-99) mg/dL Plasma Lactic Acid Wild 7.2 H* (0.7-2.0) mmol/L Phosphorus (2.5-4.5) mg/dL Magnesium (1.6-2.3) mg/dL AST (14-36) U/L Total Protein (6.3-8.2) g/dL Albumin (3.5-5.0) g/dL Urine Appearance Cloudy H (Clear) Urine Protein 1+ H (Negative) Amorphous Sediment Occasional H (None) /hpf Hyaline Casts 19 H (0-2) /lpf Urine Mucus Rare H (None) /hpf 05/18/19 05/18/19 05/18/19 Range/Units 19:48 21:13 23:03 WBC (3.8-10.6) k/uL Hct (34.0-46.0) % Neutrophils # (1.3-7.7) k/uL PT (9.0-12.0) sec INR (<1.2) Sodium (137-145) mmol/L Potassium 5.7 H (3.5-5.1) mmol/L Chloride (98-107) mmol/L Carbon Dioxide 18 L (22-30) mmol/L BUN 52 H (7-17) mg/dL Creatinine 2.25 H (0.52-1.04) mg/dL Glucose 186 H (74-99) mg/dL POC Glucose (mg/dL) 183 H 123 H (75-99) mg/dL Plasma Lactic Acid Wild (0.7-2.0) mmol/L Phosphorus (2.5-4.5) mg/dL Magnesium (1.6-2.3) mg/dL AST (14-36) U/L Total Protein 5.9 L (6.3-8.2) g/dL Albumin 3.4 L (3.5-5.0) g/dL Urine Appearance (Clear) Urine Protein (Negative) Amorphous Sediment (None) /hpf Hyaline Casts (0-2) /lpf Urine Mucus (None) /hpf 05/18/19 05/19/19 05/19/19 Range/Units 23:50 02:25 02:34 WBC 17.0 H (3.8-10.6) k/uL Hct (34.0-46.0) % Neutrophils # 15.2 H (1.3-7.7) k/uL PT (9.0-12.0) sec INR (<1.2) Sodium (137-145) mmol/L Potassium 5.5 H (3.5-5.1) mmol/L Chloride (98-107) mmol/L Carbon Dioxide 19 L (22-30) mmol/L BUN 55 H (7-17) mg/dL Creatinine 2.40 H (0.52-1.04) mg/dL Glucose 66 L (74-99) mg/dL POC Glucose (mg/dL) (75-99) mg/dL Plasma Lactic Acid Wild 6.3 H* (0.7-2.0) mmol/L Phosphorus 6.5 H (2.5-4.5) mg/dL Magnesium (1.6-2.3) mg/dL AST (14-36) U/L Total Protein 5.3 L (6.3-8.2) g/dL Albumin 2.9 L (3.5-5.0) g/dL Urine Appearance (Clear) Urine Protein (Negative) Amorphous Sediment (None) /hpf Hyaline Casts (0-2) /lpf Urine Mucus (None) /hpf 05/19/19 05/19/19 05/19/19 Range/Units 03:09 03:47 08:38 WBC (3.8-10.6) k/uL Hct (34.0-46.0) % Neutrophils # (1.3-7.7) k/uL PT (9.0-12.0) sec INR (<1.2) Sodium (137-145) mmol/L Potassium (3.5-5.1) mmol/L Chloride (98-107) mmol/L Carbon Dioxide (22-30) mmol/L BUN (7-17) mg/dL Creatinine (0.52-1.04) mg/dL Glucose (74-99) mg/dL POC Glucose (mg/dL) 64 L (75-99) mg/dL Plasma Lactic Acid Wild 3.5 H* 2.2 H* (0.7-2.0) mmol/L Phosphorus (2.5-4.5) mg/dL Magnesium (1.6-2.3) mg/dL AST (14-36) U/L Total Protein (6.3-8.2) g/dL Albumin (3.5-5.0) g/dL Urine Appearance (Clear) Urine Protein (Negative) Amorphous Sediment (None) /hpf Hyaline Casts (0-2) /lpf Urine Mucus (None) /hpf Assessment and Plan Assessment: Chronic conditions Diastolic CHF currently compensated Valvular heart disease CAD status post CABG CKD stage III Hypertension Hypothyroid Paroxysmal A. fib Parkinson disease resume home medications for above, hold nephrotoxic meds (1) Septic shock Narrative/Plan: * Likely secondary to infectious colitis * Patient hypotensive this morning urine output following we'll start the patient on Iv pressors with levophed to keep Map > 65 * Continue empiric IV antibiotics with Zosyn, blood cultures pending, will order stool cultures WBCs and ova and parasites * Patient afebrile leukocytosis trending down Current Visit: Yes Status: Acute Code(s): A41.9 - SEPSIS, UNSPECIFIED ORGANISM; R65.21 - SEVERE SEPSIS WITH SEPTIC SHOCK SNOMED Code(s): 77871784 (2) Colitis Narrative/Plan: * Infectious versus inflammatory treatment as above Current Visit: Yes Status: Acute Code(s): K52.9 - NONINFECTIVE GASTROENTERITIS AND COLITIS, UNSPECIFIED SNOMED Code(s): 10859444 (3) Acute kidney injury superimposed on chronic kidney disease Narrative/Plan: * Prerenal ATN due to hypoperfusion in septic shock * Patient also with hyperkalemia and metabolic acidemia due to acute kidney injury from septic shock * Consult renal for further recommendations * Continue to monitor urine output closely Current Visit: Yes Status: Acute Code(s): N17.9 - ACUTE KIDNEY FAILURE, UNSPECIFIED; N18.9 - CHRONIC KIDNEY DISEASE, UNSPECIFIED SNOMED Code(s): 31114409 (4) Hyperkalemia Narrative/Plan: * Secondary to acute kidney injury on chronic kidney disease * Received temporizing measures still slightly no peaked T waves noted on telemetry * Continue to monitor follow nephrology recommendations Current Visit: Yes Status: Acute Code(s): E87.5 - HYPERKALEMIA SNOMED Code(s): 50599613 (5) Type 2 diabetes mellitus with hyperglycemia Narrative/Plan: * Patient hypoglycemic this morning reportedly asymptomatic and given an amp of d50 * Continue to monitor blood sugars closely, correctional scale coverage when necessary Current Visit: Yes Status: Acute Code(s): E11.65 - TYPE 2 DIABETES MELLITUS WITH HYPERGLYCEMIA SNOMED Code(s): 570636077028146
--- NOTE | 2019-05-19 12:42 | ECHOF ---
Referral Reason:hypotension MEASUREMENTS -------- HEIGHT: 165.1 cm WEIGHT: 93.9 kg BP: 94/45 RVIDd: 3.5 cm (< 3.3) IVSd: 1.6 cm (0.6 - 1.1) LVIDd: 3.7 cm (3.9 - 5.3) LVPWd: 1.5 cm (0.6 - 1.1) IVSs: 1.8 cm LVIDs: 3.1 cm LVPWs: 1.6 cm LA Diam: 4.5 cm (2.7 - 3.8) LAESV Index (A-L): 33.40 ml/m Ao Diam: 2.7 cm (2.0 - 3.7) AV Cusp: 1.3 cm (1.5 - 2.6) MV EXCURSION: 13.341 mm (> 18.000) MV EF SLOPE: 38 mm/s (70 - 150) EPSS: 0.8 cm AV maxP.40 mmHg AV meanP.58 mmHg AR PHT: 508 ms RAP: 5.00 mmHg RVSP: 64.24 mmHg TAPSE: 11.43 mm FINDINGS -------- Atrial fibrillation. This was a technically difficult study with suboptimal apical views. The left ventricular size is normal. There is moderate concentric left ventricular hypertrophy. O verall left ventricular systolic function is mildly impaired with, an EF between 45 - 50 %. The right ventricle is mildly enlarged. LA is midly dilated 29-33ml/m2. The right atrial size is normal. 5 ml of Lumason was utilized for enhancement of images. Interatrial and interventricular septum intact. Peak/mean gradient across the Aortic Valve is 58.40mmHg / 31.58mmHg. Abnormally functioning porcin e bioprosthetic aortic valve. There is moderate regurgitation of the bioprosthetic aortic valve. There is mild stenosis of the bioprosthetic aortic valve. Moderate mitral annular calcification present. Mild mitral regurgitation is present. The peak an d mean MV gradients are 13.16mmHg 4.08mmHg as measured by doppler. Mild mitral stenosis. Moderate tricuspid regurgitation present. There is severe pulmonary hypertension. The right ventr icular systolic pressure, as measured by Doppler, is 64.24mmHg. Trace/mild (physiologic) pulmonic regurgitation. The aortic root size is normal. IVC Not well visulized. There is no pericardial effusion. CONCLUSIONS -------- 1. Atrial fibrillation. 2. This was a technically difficult study with suboptimal apical views. 3. The left ventricular size is normal. 4. There is moderate concentric left ventricular hypertrophy. 5. Overall left ventricular systolic function is mildly impaired with, an EF between 45 - 50 %. 6. The right ventricle is mildly enlarged. 7. LA is midly dilated 29-33ml/m2. 8. 5 ml of Lumason was utilized for enhancement of images. 9. Peak/mean gradient across the Aortic Valve is 58.40mmHg / 31.58mmHg. 10. Abnormally functioning porcine bioprosthetic aortic valve. 11. There is moderate regurgitation of the bioprosthetic aortic valve. 12. There is mild stenosis of the bioprosthetic aortic valve. 13. Moderate mitral annular calcification present. 14. Mild mitral regurgitation is present. 15. The peak and mean MV gradients are 13.16mmHg 4.08mmHg as measured by doppler. 16. Mild mitral stenosis. 17. Moderate tricuspid regurgitation present. 18. There is severe pulmonary hypertension. 19. Trace/mild (physiologic) pulmonic regurgitation. 20. The aortic root size is normal. 21. IVC Not well visulized. 22. There is no pericardial effusion. GLASS INSTALLER: Kasandra Aguiar RDCS
--- NOTE | 2019-05-19 15:44 | P.PN ---
Subjective Progress Note Date: 05/19/19 This is a pleasant 78-year-old female patient with known history of coronary artery disease, previous bypass surgery, previous aortic valve replacement, along with history of chronic atrial fibrillation and diabetes mellitus and hypothyroidism. The patient has been followed up by Dr. Berry on outpatient basis. The patient acutely became ill this morning. She woke up and she developed nausea and emesis and watery diarrhea which is going on for now. The patient is passing significant amount of liquidy bowel movements. No melanotic. No bright red blood per rectum. No hematemesis. No abdominal pain or distention. No channel history. No ingestion of any contaminated material or food products. No sick contacts. She lives with her daughter and her daughter is healthy and she did not have any gastrointestinal symptoms. She's been eating home food Throughout the past month. No recent antibiotic intake. Reports history of inflammatory bowel disease or infectious colitis. No history of any inflammatory bowel disease. In the ED, the patient a white cell count of 21. The patient and acute kidney injury with a creatinine of 2.1. Lactic acid level was at 9. Potassium level was at 6.0. The patient was found to be borderline hypotensive with a systolic blood pressure in the mid 80s. The patient was given a total of 3 L of IV fluids and the fourth is infusing for now. The patient is also on a maintenance 130 mL an hour normal saline. Resume amount of urine output. She underwent a straight cathetered UA essentially negative with +1 protein. Stool for C. diff is negative. Blood sugar was elevated at 3 on 35. Nevertheless the acetone was negative. She is awake and alert. She is following commands and answering questions. She is currently on normal saline at the rate of 1 30 mL an hour. No fever. No chills. No night sweats. No other complaints otherwise for now. On today's evaluation of 05/19/2019 I'm seeing this patient for a follow-up. Clinically the patient is having liquidy diarrhea. Hemodynamically she is still having the low blood pressure since earlier this morning. The patient was given a total of 6l fluids and the patient was receiving normal saline infusion as maintenance at the rate of 130 mL an hour. The patient was furthermore started on low dose norepinephrine infusion today and this was initiated to maintain a mean artery pressure above 65. The patient is having adequate urine output. Lactic acid levels are improving. White cell count is dropped. Note that the lactic acid level is down to 2.6. The creatinine is at 2.4 for now. The follow-up white cell count is down to 17 from a baseline of 21.9. Stool for C. diff was negative. Blood cultures still pending. The stool culture also pending. CAT scan of the abdomen and pelvis was done yesterday showed moderate circumferential mural thickening of the entire length of the distal half of the transverse colon and descending colon and the sigmoid colon consistent with inflammatory versus infectious colitis. No pneumoperitoneum. The patient is currently on IV Zosyn. No nausea. No vomiting. No abdominal pain. Altered mentation. No fever. No chills. The patient is requesting some oral intake. Objective - Vital Signs Vital signs: Vital Signs Temp 98.1 F 05/19/19 12:00 Pulse 87 05/19/19 15:00 Resp 21 05/19/19 15:00 BP 84/41 05/19/19 15:00 Pulse Ox 100 05/19/19 15:00 Intake & Output 05/18/19 05/19/19 05/19/19 18:59 06:59 18:59 Intake Total 3320 1403.356 Output Total 180 130 Balance 3140 1273.356 Weight 88.36 kg 94.3 kg Intake: IV 3190 1240 Dextrose 10 % in Water 150 150 ml @ 999 mls/hr IV ONCE ONE Rx#:[id number] Piperacillin-Tazobactam 3 100 .375 gm In Sodium Chloride 0.9% 100 ml @ 25 mls/hr IVPB Q8HR [facility] Rx# :[id number] Sodium Chloride 0.9% 1, 1040 390 000 ml @ 130 mls/hr IV . Q7H42M [facility] Rx#:[id number] Sodium Chloride 0.9% 1, 750 000 ml @ 150 mls/hr IV . Q6H40M [facility] Rx#:[id number] Sodium Chloride 0.9% 2, 2000 000 ml @ 999 mls/hr IV . Q2H1M [facility] Rx#:[id number] Intake, IV Titration 130 163.356 Amount Dextrose 10 % in Water 130 150 ml @ 999 mls/hr IV ONCE ONE Rx#:[id number] Norepinephrine 4 mg In 163.356 Sodium Chloride 0.9% 250 ml @ 0.05 MCG/KG/MIN 17. 964 mls/hr IV .Q14H9M [facility] Rx#:[id number] Output: Urine 180 130 Other: Voiding Method Indwelling Catheter Indwelling Catheter # Bowel Movements 2 1 1 - Exam The patient appeared well nourished and normally developed. Vital signs as documented. Head exam is unremarkable. No scleral icterus or corneal arcus noted. Neck is without jugular venous distension, thyromegaly, or carotid bruits. Carotid upstrokes are brisk bilaterally. Lungs are clear to auscultation and percussion. Cardiac exam reveals the PMI to be normally sized and situated. Rhythm is regular. First and second heart sounds normal. No murmurs, rubs or gallops. The patient had a thoracotomy scar over the anterior chest area. There is a faint grade 3/6 systolic ejection murmur heard over the apex. There is also radiating to the neck area. Abdominal exam reveals normal bowel sounds, no masses, no organomegaly and no aortic enlargement. Extremities are nonedematous and both femoral and pedal pulses are normal.Examination of the skin revealed no evidence of significant rashes, suspicious appearing nevi or other concerning lesions. Neurologically the patient is awake and alert and is no focal neurological deficits. - Labs CBC & Chem 7: 05/19/19 02:25 05/19/19 02:34 Labs: Abnormal Lab Results - Last 24 Hours (Table) 05/18/19 05/18/19 05/18/19 Range/Units 15:30 15:30 15:30 WBC 21.9 H (3.8-10.6) k/uL Hct 46.6 H (34.0-46.0) % Neutrophils # 19.9 H (1.3-7.7) k/uL PT (9.0-12.0) sec INR (<1.2) Sodium 136 L (137-145) mmol/L Potassium 6.0 H (3.5-5.1) mmol/L Chloride 94 L (98-107) mmol/L Carbon Dioxide (22-30) mmol/L BUN 53 H (7-17) mg/dL Creatinine 2.19 H (0.52-1.04) mg/dL Glucose 335 H (74-99) mg/dL POC Glucose (mg/dL) (75-99) mg/dL Plasma Lactic Acid Wild 9.0 H* (0.7-2.0) mmol/L Phosphorus 6.4 H (2.5-4.5) mg/dL Magnesium 2.5 H (1.6-2.3) mg/dL AST 41 H (14-36) U/L Total Protein (6.3-8.2) g/dL Albumin (3.5-5.0) g/dL Urine Appearance (Clear) Urine Protein (Negative) Amorphous Sediment (None) /hpf Hyaline Casts (0-2) /lpf Urine Mucus (None) /hpf 05/18/19 05/18/19 05/18/19 Range/Units 15:30 17:25 19:42 WBC (3.8-10.6) k/uL Hct (34.0-46.0) % Neutrophils # (1.3-7.7) k/uL PT 12.3 H (9.0-12.0) sec INR 1.2 H (<1.2) Sodium (137-145) mmol/L Potassium (3.5-5.1) mmol/L Chloride (98-107) mmol/L Carbon Dioxide (22-30) mmol/L BUN (7-17) mg/dL Creatinine (0.52-1.04) mg/dL Glucose (74-99) mg/dL POC Glucose (mg/dL) (75-99) mg/dL Plasma Lactic Acid Wild 7.2 H* (0.7-2.0) mmol/L Phosphorus (2.5-4.5) mg/dL Magnesium (1.6-2.3) mg/dL AST (14-36) U/L Total Protein (6.3-8.2) g/dL Albumin (3.5-5.0) g/dL Urine Appearance Cloudy H (Clear) Urine Protein 1+ H (Negative) Amorphous Sediment Occasional H (None) /hpf Hyaline Casts 19 H (0-2) /lpf Urine Mucus Rare H (None) /hpf 05/18/19 05/18/19 05/18/19 Range/Units 19:48 21:13 23:03 WBC (3.8-10.6) k/uL Hct (34.0-46.0) % Neutrophils # (1.3-7.7) k/uL PT (9.0-12.0) sec INR (<1.2) Sodium (137-145) mmol/L Potassium 5.7 H (3.5-5.1) mmol/L Chloride (98-107) mmol/L Carbon Dioxide 18 L (22-30) mmol/L BUN 52 H (7-17) mg/dL Creatinine 2.25 H (0.52-1.04) mg/dL Glucose 186 H (74-99) mg/dL POC Glucose (mg/dL) 183 H 123 H (75-99) mg/dL Plasma Lactic Acid Wild (0.7-2.0) mmol/L Phosphorus (2.5-4.5) mg/dL Magnesium (1.6-2.3) mg/dL AST (14-36) U/L Total Protein 5.9 L (6.3-8.2) g/dL Albumin 3.4 L (3.5-5.0) g/dL Urine Appearance (Clear) Urine Protein (Negative) Amorphous Sediment (None) /hpf Hyaline Casts (0-2) /lpf Urine Mucus (None) /hpf 05/18/19 05/19/19 05/19/19 Range/Units 23:50 02:25 02:34 WBC 17.0 H (3.8-10.6) k/uL Hct (34.0-46.0) % Neutrophils # 15.2 H (1.3-7.7) k/uL PT (9.0-12.0) sec INR (<1.2) Sodium (137-145) mmol/L Potassium 5.5 H (3.5-5.1) mmol/L Chloride (98-107) mmol/L Carbon Dioxide 19 L (22-30) mmol/L BUN 55 H (7-17) mg/dL Creatinine 2.40 H (0.52-1.04) mg/dL Glucose 66 L (74-99) mg/dL POC Glucose (mg/dL) (75-99) mg/dL Plasma Lactic Acid Wild 6.3 H* (0.7-2.0) mmol/L Phosphorus 6.5 H (2.5-4.5) mg/dL Magnesium (1.6-2.3) mg/dL AST (14-36) U/L Total Protein 5.3 L (6.3-8.2) g/dL Albumin 2.9 L (3.5-5.0) g/dL Urine Appearance (Clear) Urine Protein (Negative) Amorphous Sediment (None) /hpf Hyaline Casts (0-2) /lpf Urine Mucus (None) /hpf 05/19/19 05/19/19 05/19/19 Range/Units 03:09 03:47 08:38 WBC (3.8-10.6) k/uL Hct (34.0-46.0) % Neutrophils # (1.3-7.7) k/uL PT (9.0-12.0) sec INR (<1.2) Sodium (137-145) mmol/L Potassium (3.5-5.1) mmol/L Chloride (98-107) mmol/L Carbon Dioxide (22-30) mmol/L BUN (7-17) mg/dL Creatinine (0.52-1.04) mg/dL Glucose (74-99) mg/dL POC Glucose (mg/dL) 64 L (75-99) mg/dL Plasma Lactic Acid Wild 3.5 H* 2.2 H* (0.7-2.0) mmol/L Phosphorus (2.5-4.5) mg/dL Magnesium (1.6-2.3) mg/dL AST (14-36) U/L Total Protein (6.3-8.2) g/dL Albumin (3.5-5.0) g/dL Urine Appearance (Clear) Urine Protein (Negative) Amorphous Sediment (None) /hpf Hyaline Casts (0-2) /lpf Urine Mucus (None) /hpf 05/19/19 Range/Units 12:24 WBC (3.8-10.6) k/uL Hct (34.0-46.0) % Neutrophils # (1.3-7.7) k/uL PT (9.0-12.0) sec INR (<1.2) Sodium (137-145) mmol/L Potassium (3.5-5.1) mmol/L Chloride (98-107) mmol/L Carbon Dioxide (22-30) mmol/L BUN (7-17) mg/dL Creatinine (0.52-1.04) mg/dL Glucose (74-99) mg/dL POC Glucose (mg/dL) (75-99) mg/dL Plasma Lactic Acid Wild 2.6 H* (0.7-2.0) mmol/L Phosphorus (2.5-4.5) mg/dL Magnesium (1.6-2.3) mg/dL AST (14-36) U/L Total Protein (6.3-8.2) g/dL Albumin (3.5-5.0) g/dL Urine Appearance (Clear) Urine Protein (Negative) Amorphous Sediment (None) /hpf Hyaline Casts (0-2) /lpf Urine Mucus (None) /hpf Assessment and Plan Plan: 1 acute gastroenteritis, exact cause is not clear. Rule out viral gastroenteritis. Rule out bacterial causes. Doubt any inflammatory bowel disease. Doubt ischemic colitis. Doubt C. diff colitis. The patient continues to have liquidy loose diarrhea and the CAT scan of the abdomen and pelvis showed mural thickening and inflammatory changes involving the transverse and descending and sigmoid colon. Stool for C. diff has been negative. Awaiting stool cultures. Awaiting blood cultures. The patient is currently on IV Zosyn. 2 acute lactic acidosis, improving 3 acute kidney injury secondary to above 4 acute leukocytosis secondary to above, improving 5 hypotension secondary to above, received a total of 6 L of IV fluids. The patient is also on pressors for now. 6 coronary artery disease with previous bypass surgery and recent cardiac catheterization from February 2019 showing subtotal occluded LAD with competitive flow from SVG and mild RCA disease with a SVG to RCA and LAD being both patent 7 aortic valve replacement 8 secondary pulmonary hypertension 9 chronic atrial fibrillation maintained on long-term anticoagulation with Eliquis 10 diabetes mellitus 11 hyperlipidemia 13 hypothyroidism 14 Parkinson's disease Plan Continue fluid resuscitation with normal saline. The patient will be maintained on a normal saline infusion rate of 150 mL an hour. Pressors are being utilized to maintain a mean artery pressure above 65. Mother urine output. Monitor renal function. Nephrology consultation. IV Zosyn. Awaiting blood cultures. Awaiting stool culture. Lactic acidosis improving. Stool cultures are pending. The patient will have a follow-up echocardiogram. We'll continue to follow make further recommendations based on her progress. Allow soft diet.
[2019-05-19 16:04] LABS: Calcium 8.1 mg/dL (8.4-10.2)
[2019-05-19 16:19] LABS: Glucose,Whole Blood 123 mg/dL (75-99)
[2019-05-19] MEDS ORDERED: FUROSEMIDE 10 MG/ML 10 ML VIAL IV ONE (17:00)
[2019-05-19] MEDS: ATORVASTATIN 10 MG TAB PO SCH (20:16)
[2019-05-19 20:48] LABS: Glucose,Whole Blood 128 mg/dL (75-99)
[2019-05-19 23:11] LABS: Glucose,Whole Blood 119 mg/dL (75-99)
--- NOTE | 2019-05-19 23:25 | CT ---
EXAMINATION TYPE: CT brain wo con for TPA DATE OF EXAM: 05/19/2019 COMPARISON: 09/07/2009 HISTORY: code stroke CT DLP: 1082.4 mGycm Automated exposure control for dose reduction was used. FINDINGS: Ventricles have normal size. There is no mass effect nor midline shift. There is no sign of intracran ial hemorrhage. There is mild cerebral atrophy. There is no sign of cortical infarct. Calvarium is in tact. There is some mucosal thickening in the frontal and ethmoid sinuses. IMPRESSION: CEREBRAL ATROPHY. NO ACUTE INTRACRANIAL ABNORMALITY. THERE IS SINUSITIS THAT IS NEW COMPARED TO OLD EXAM.
[2019-05-19 23:36] LABS: Basophils % (A) 0 %; Eosinophils # (A) 0.1 k/uL (0-0.7); Eosinophils % (A) 1 %; HCT 34.9 % (34.0-46.0); HGB 11.6 gm/dL (11.4-16.0); Lymphocytes # (A) 1.2 k/uL (1.0-4.8); Lymphocytes % (A) 7 %; MCH 31.9 pg (25.0-35.0); MCHC 33.2 g/dL (31.0-37.0); MCV 96.2 fL (80.0-100.0); Mean Platelet Volume 8.8; Monocytes # (A) 0.8 k/uL (0-1.0); Monocytes % (A) 4 %; Neutrophils # (A) 15.7 k/uL (1.3-7.7); Neutrophils % (A) 88 %; Platelet Count 178 k/uL (150-450); RBC 3.63 m/uL (3.80-5.40); RDW 14.9 % (11.5-15.5)
[2019-05-19 23:45] LABS: Albumin 2.8 g/dL (3.5-5.0); INR 1.3 (<1.2); Partial Thromboplastin Time 35.3 sec (22.0-30.0); Potassium 5.2 mmol/L (3.5-5.1); Prothrombin Time 13.1 sec (9.0-12.0); Total Bilirubin 0.6 mg/dL (0.2-1.3); Total Protein 5.2 g/dL (6.3-8.2)
[2019-05-20 00:19] LABS: ABG Base Excess -8.3 mmol/L; ABG HCO3 19 mmol/L (21-25); ABG Oxygen Saturation 87.8 % (94-97); ABG PCO2 46 mmHg (35-45); ABG PH 7.23 (7.35-7.45); ABG TCO2 21 mmol/L (19-24); Allen Test Performed? Yes
[2019-05-20 00:23] LABS: ABG PO2 56 mmHg (83-108)
[2019-05-20] MEDS: INSULIN ASPART (NovoLOG) 100 UNIT/ML VIAL SQ SCH ×6 (00:44→21:45)
[2019-05-20] MEDS: NOREPINEPHRINE 4 MG in SODIUM CHLORIDE 0.9% 250 ML IV SCH ×2 (01:17→18:38)
[2019-05-20] MEDS: DEXTROSE 5% IN WATER 1,000 ML with SODIUM BICARB (1 MEQ/ML) 150 ML IV SCH ×2 (01:17→18:38)
[2019-05-20 04:10] LABS: Glucose,Whole Blood 160 mg/dL (75-99)
[2019-05-20] MEDS: SODIUM CHLORIDE 0.9% 1,000 ML IV SCH (05:09)
[2019-05-20 05:26] LABS: Glucose,Whole Blood 142 mg/dL (75-99)
[2019-05-20 05:37] LABS: Basophils # (A) 0.1 k/uL (0-0.2); Basophils % (A) 1 %; Eosinophils % (A) 0 %; HGB 10.8 gm/dL (11.4-16.0); Lymphocytes # (A) 1.1 k/uL (1.0-4.8); Lymphocytes % (A) 7 %; MCHC 31.9 g/dL (31.0-37.0); MCV 97.3 fL (80.0-100.0); Mean Platelet Volume 7.5; Monocytes # (A) 0.7 k/uL (0-1.0); Monocytes % (A) 4 %; Neutrophils # (A) 13.5 k/uL (1.3-7.7); Neutrophils % (A) 87 %; Platelet Count 182 k/uL (150-450); RBC 3.49 m/uL (3.80-5.40); RDW 13.3 % (11.5-15.5); WBC 15.6 k/uL (3.8-10.6)
[2019-05-20 05:38] LABS: Calcium 8.2 mg/dL (8.4-10.2)
[2019-05-20] MEDS: LEVOTHYROXINE 137 MCG TAB PO SCH (07:00)
--- NOTE | 2019-05-20 07:49 | P.CNNES ---
History of Present Illness Consult date: 05/20/19 Requesting physician: Carson Bermudez Reason for Consult: Code stroke Chief complaint: Episode of AMS and ?left facial droop History of Present Illness: This is a 78 RH female h/o CAD s/p CABG and AVR, chronic afib on Eliquis, DM and hypothyroidism. She is in the ICU with sepsis and an infective colitis after presenting with N/V/D. She has been requiring IVF and pressors for pressure support. She also has a lactic acidosis (improving) and renal insufficiency (worsening). Last night the RN found her to be more confused and lethargic with a question of left facial droop, so a code stroke was called. CT Head showed nil acute. She was not deemed an acute vascular intervention candidate. Patient's mental status continues to wax and wane. She does have Parkinson's with a hand tremor, but no report of other adventitious movements or seizure-like activity. Patient cannot provide much meaningful history. My historical information was obtained by discussing the case the [facility] and reviewing available medical records in EMR. Review of Systems Unable to obtain due to AMS Past Medical History Past Medical History: Atrial Fibrillation, Coronary Artery Disease (CAD), Heart Failure, Diabetes Mellitus, Hyperlipidemia, Hypertension, Osteoarthritis (OA), Pneumonia, Thyroid Disorder Additional Past Medical History / Comment(s): Leaky valve, Parkinsons, neuropathy legs, Pneumonia 2 yrs ago. Constipation History of Any Multi-Drug Resistant Organisms: None Reported Past Surgical History: Cholecystectomy, Coronary Bypass/CABG, Heart Catheterization Additional Past Surgical History / Comment(s): Aortic valve replacement with double cardiac bypass surgery(2010), bilateral cataracts removed. Cardioversion 02/05/19. Past Anesthesia/Blood Transfusion Reactions: No Reported Reaction Past Psychological History: No Psychological Hx Reported Smoking Status: Never smoker Past Alcohol Use History: None Reported Past Drug Use History: None Reported - Past Family History Father Family Medical History: Myocardial Infarction ([place]) Mother Family Medical History: Cancer Additional Family Medical History / Comment(s): in her sleep at 89. Medications and Allergies Home Medications Medication Instructions Recorded Confirmed Type Gabapentin [Neurontin] 300 mg PO BID 09/29/16 05/18/19 History Simvastatin [Zocor] 20 mg PO HS 09/29/16 05/18/19 History Carbidopa-Levodopa 25-100 mg 1 tab PO QID 01/05/19 05/18/19 History [Sinemet 25-100 mg] metFORMIN HCL [Glucophage] 1,000 mg PO BID 01/05/19 05/18/19 History Apixaban [Eliquis] 5 mg PO BID #60 tab 01/09/19 05/18/19 Rx Aspirin 81 mg PO DAILY chew 01/09/19 05/18/19 Rx Benazepril [Lotensin] 10 mg PO DAILY 01/09/19 05/18/19 History Furosemide [Lasix] 40 mg PO BID #60 tab 01/09/19 05/18/19 Rx Levothyroxine Sodium [Synthroid] 137 mcg PO DAILY #30 tab 01/09/19 05/18/19 Rx Naproxen [Naprosyn] 500 mg PO Q12HR PRN #0 01/09/19 05/18/19 Rx Amiodarone [Cordarone] 200 mg PO DAILY 05/18/19 05/18/19 History Metoprolol Tartrate [Lopressor] 25 mg PO BID 05/18/19 05/18/19 History glipiZIDE [Glucotrol] 5 mg PO AC-BRKFST 05/18/19 05/18/19 History Allergies Allergy/AdvReac Type Severity Reaction Status Date / Time No Known Allergies Allergy Verified 05/19/19 08:04 Physical Examination - Vital Signs Vital Signs: Vital Signs Temp Pulse Resp BP Pulse Ox 05/20/19 07:00 92 24 112/48 99 05/20/19 06:30 91 23 104/47 98 05/20/19 06:00 86 22 93/47 99 05/20/19 05:30 85 22 105/44 99 05/20/19 05:00 93 31 H 106/49 100 05/20/19 04:30 86 25 H 116/51 92 L 05/20/19 04:00 98.5 F 92 21 107/43 97 05/20/19 03:30 88 25 H 106/51 99 05/20/19 03:00 82 25 H 109/53 92 L 05/20/19 02:30 84 23 97/44 97 05/20/19 02:00 83 23 101/44 96 05/20/19 01:30 91 27 H 104/48 97 05/20/19 01:00 91 32 H 105/57 95 05/20/19 00:30 80 28 H 103/46 87 L 05/20/19 00:00 99.5 F 89 29 H 107/50 94 L 05/19/19 23:30 84 28 H 102/46 93 L 05/19/19 23:00 80 27 H 99/44 97 05/19/19 22:58 99.8 F H 80 16 106/53 94 L 05/19/19 22:30 80 29 H 90/58 95 05/19/19 22:00 82 29 H 93/45 96 05/19/19 21:30 87 27 H 115/58 98 05/19/19 21:00 112 H 25 H 114/50 96 05/19/19 20:30 118 H 26 H 98/57 97 05/19/19 20:00 99.8 F H 89 28 H 119/44 96 05/19/19 19:30 89 25 H 115/42 98 05/19/19 19:00 97 25 H 92/47 98 05/19/19 18:30 89 26 H 101/45 96 05/19/19 18:15 99.2 F 118 H 21 101/45 96 05/19/19 18:00 111 H 27 H 106/64 95 05/19/19 17:45 117 H 24 111/48 99 05/19/19 17:30 93 21 118/88 99 05/19/19 17:15 87 22 109/60 98 05/19/19 17:00 92 18 107/54 99 05/19/19 16:45 93 17 118/52 97 05/19/19 16:30 93 21 120/68 100 05/19/19 16:15 93 23 113/43 99 05/19/19 16:00 99.6 F 92 20 102/60 100 05/19/19 15:45 92 20 95/50 100 05/19/19 15:30 87 17 121/90 99 05/19/19 15:15 92 15 93/65 100 05/19/19 15:00 87 21 84/41 100 05/19/19 14:45 90 20 94/52 100 05/19/19 14:30 88 19 101/50 100 05/19/19 14:15 85 17 97/43 100 05/19/19 14:00 85 21 102/56 98 05/19/19 13:45 90 22 111/62 99 05/19/19 13:30 94 22 119/52 05/19/19 13:15 85 21 113/47 05/19/19 13:00 85 28 H 114/48 05/19/19 12:45 96 19 98/39 94 L 05/19/19 12:30 84 25 H 105/47 96 05/19/19 12:15 92 25 H 101/48 98 05/19/19 12:00 98.1 F 88 22 95/41 97 05/19/19 11:45 86 23 97/48 93 L 05/19/19 11:30 89 21 87/43 98 05/19/19 11:15 97 23 100/39 99 05/19/19 11:00 93 22 94/45 97 05/19/19 10:45 85 23 92/51 97 05/19/19 10:30 92 22 92/47 99 05/19/19 10:15 84 25 H 90/55 98 05/19/19 10:00 92 24 90/55 97 05/19/19 09:45 82 25 H 96/46 100 05/19/19 09:30 84 20 77/37 100 05/19/19 09:00 84 23 80/42 95 05/19/19 08:45 84 22 80/42 98 05/19/19 08:30 84 22 92/45 86 L 05/19/19 08:15 85 16 92/45 96 05/19/19 08:00 98.4 F 84 25 H 92/45 98 Intake and Output 05/19/19 05/20/19 05/20/19 22:59 06:59 14:59 Intake Total 1285.870 978.024 100 Output Total 365 340 60 Balance 920.870 638.024 40 Intake: IV 1150 950 100 Dextrose 5% in Water 1, 500 100 000 ml @ 100 mls/hr IV . [id number] AMEYA with Sodium Bicarb (1 Meq/ml) 150 ml Rx#:[id number] Piperacillin-Tazobactam 3 100 .375 gm In Sodium Chloride 0.9% 100 ml @ 25 mls/hr IVPB Q8HR AMEYA Rx# :[id number] Sodium Chloride 0.9% 1, 1050 450 000 ml @ 100 mls/hr IV . Q10H AMEYA Rx#:[id number] Intake, IV Titration 135.870 28.024 Amount Norepinephrine 4 mg In 135.870 28.024 Sodium Chloride 0.9% 250 ml @ 0.05 MCG/KG/MIN 17. 964 mls/hr IV .Q14H9M AMEYA Rx#:[id number] Output: Urine 365 340 60 Other: Voiding Method Indwelling Catheter Indwelling Catheter # Bowel Movements 1 Weight 102 kg Gen NAD Pleasant and cooperative HEENT NCAT Sclera without icterus O/P clear Neck Supple No carotid bruit Cor RRR no m/r/g Lungs CTAB Abd Soft NTND +BS Ext Warm to touch No edema Neuro MS Somnolent but arousable to normal voice and tactile stimuli Waxes and wanes with response that is often delayed Able to state her name and knows she's in the hospital Disoriented to time Able to follow simple commands CN PERRL Blinks to threat bilaterally EOMI no nystagmus or KEKE No facial asymmetry Hearing intact to normal voice bilaterally Speech not dysarthric Equal elevation of palate Tongue midline Sym shrug and SCM bilaterally Motor Normal bulk/tone RUE resting tremor Strength 5/5 sym throughout Sens Intact to LT x4 No neglect Coord No dysmetria as she grabs my hand with each of hers DTRs 2+/4 sym throughout Toes downgoing bilaterally No clonus at achilles Gait Deferred NIHSS 1a=1 1b=2 total 3 Results - Laboratory Findings CBC and BMP: 05/20/19 05:02 05/20/19 05:02 Abnormal Lab Findings: Abnormal Labs 05/18/19 05/18/19 05/18/19 15:30 15:30 15:30 WBC 21.9 H RBC Hgb Hct 46.6 H Neutrophils # 19.9 H PT INR APTT ABG pH ABG pCO2 ABG pO2 ABG HCO3 ABG O2 Saturation Sodium 136 L Potassium 6.0 H Chloride 94 L Carbon Dioxide BUN 53 H Creatinine 2.19 H Glucose 335 H POC Glucose (mg/dL) Plasma Lactic Acid Wild 9.0 H* Calcium Phosphorus 6.4 H Magnesium 2.5 H AST 41 H Troponin I Total Protein Albumin Procalcitonin Urine Appearance Urine Protein Amorphous Sediment Hyaline Casts Urine Mucus Stool Lactoferrin 05/18/19 05/18/19 05/18/19 15:30 17:25 19:42 WBC RBC Hgb Hct Neutrophils # PT 12.3 H INR 1.2 H APTT ABG pH ABG pCO2 ABG pO2 ABG HCO3 ABG O2 Saturation Sodium Potassium Chloride Carbon Dioxide BUN Creatinine Glucose POC Glucose (mg/dL) Plasma Lactic Acid Wild 7.2 H* Calcium Phosphorus Magnesium AST Troponin I Total Protein Albumin Procalcitonin Urine Appearance Cloudy H Urine Protein 1+ H Amorphous Sediment Occasional H Hyaline Casts 19 H Urine Mucus Rare H Stool Lactoferrin 05/18/19 05/18/19 05/18/19 19:48 21:13 23:03 WBC RBC Hgb Hct Neutrophils # PT INR APTT ABG pH ABG pCO2 ABG pO2 ABG HCO3 ABG O2 Saturation Sodium Potassium 5.7 H Chloride Carbon Dioxide 18 L BUN 52 H Creatinine 2.25 H Glucose 186 H POC Glucose (mg/dL) 183 H 123 H Plasma Lactic Acid Wild Calcium Phosphorus Magnesium AST Troponin I Total Protein 5.9 L Albumin 3.4 L Procalcitonin Urine Appearance Urine Protein Amorphous Sediment Hyaline Casts Urine Mucus Stool Lactoferrin 05/18/19 05/19/19 05/19/19 23:50 00:01 02:25 WBC 17.0 H RBC Hgb Hct Neutrophils # 15.2 H PT INR APTT ABG pH ABG pCO2 ABG pO2 ABG HCO3 ABG O2 Saturation Sodium Potassium Chloride Carbon Dioxide BUN Creatinine Glucose POC Glucose (mg/dL) Plasma Lactic Acid Wild 6.3 H* Calcium Phosphorus Magnesium AST Troponin I Total Protein Albumin Procalcitonin Urine Appearance Urine Protein Amorphous Sediment Hyaline Casts Urine Mucus Stool Lactoferrin POSITIVE H 05/19/19 05/19/19 05/19/19 02:25 02:34 03:09 WBC RBC Hgb Hct Neutrophils # PT INR APTT ABG pH ABG pCO2 ABG pO2 ABG HCO3 ABG O2 Saturation Sodium Potassium 5.5 H Chloride Carbon Dioxide 19 L BUN 55 H Creatinine 2.40 H Glucose 66 L POC Glucose (mg/dL) 64 L Plasma Lactic Acid Wild Calcium Phosphorus 6.5 H Magnesium AST Troponin I Total Protein 5.3 L Albumin 2.9 L Procalcitonin 14.28 H Urine Appearance Urine Protein Amorphous Sediment Hyaline Casts Urine Mucus Stool Lactoferrin 05/19/19 05/19/19 05/19/19 03:47 08:38 12:24 WBC RBC Hgb Hct Neutrophils # PT INR APTT ABG pH ABG pCO2 ABG pO2 ABG HCO3 ABG O2 Saturation Sodium Potassium Chloride Carbon Dioxide BUN Creatinine Glucose POC Glucose (mg/dL) Plasma Lactic Acid Wild 3.5 H* 2.2 H* 2.6 H* Calcium Phosphorus Magnesium AST Troponin I Total Protein Albumin Procalcitonin Urine Appearance Urine Protein Amorphous Sediment Hyaline Casts Urine Mucus Stool Lactoferrin 05/19/19 05/19/19 05/19/19 15:33 16:08 16:24 WBC RBC Hgb Hct Neutrophils # PT INR APTT ABG pH ABG pCO2 ABG pO2 ABG HCO3 ABG O2 Saturation Sodium 136 L Potassium Chloride Carbon Dioxide 19 L BUN 56 H Creatinine 2.80 H Glucose 112 H POC Glucose (mg/dL) 123 H Plasma Lactic Acid Wild 2.1 H* Calcium 8.1 L Phosphorus Magnesium AST Troponin I Total Protein Albumin Procalcitonin Urine Appearance Urine Protein Amorphous Sediment Hyaline Casts Urine Mucus Stool Lactoferrin 05/19/19 05/19/19 05/19/19 20:36 23:00 23:23 WBC 18.0 H RBC 3.63 L Hgb Hct Neutrophils # 15.7 H PT INR APTT ABG pH ABG pCO2 ABG pO2 ABG HCO3 ABG O2 Saturation Sodium Potassium Chloride Carbon Dioxide BUN Creatinine Glucose POC Glucose (mg/dL) 128 H 119 H Plasma Lactic Acid Wild Calcium Phosphorus Magnesium AST Troponin I Total Protein Albumin Procalcitonin Urine Appearance Urine Protein Amorphous Sediment Hyaline Casts Urine Mucus Stool Lactoferrin 05/19/19 05/19/19 05/19/19 23:23 23:23 23:23 WBC RBC Hgb Hct Neutrophils # PT 13.1 H INR 1.3 H APTT 35.3 H ABG pH ABG pCO2 ABG pO2 ABG HCO3 ABG O2 Saturation Sodium 135 L Potassium 5.2 H Chloride Carbon Dioxide 19 L BUN 58 H Creatinine 2.94 H Glucose 101 H POC Glucose (mg/dL) Plasma Lactic Acid Wild Calcium 8.0 L Phosphorus Magnesium AST Troponin I 0.052 H* Total Protein 5.2 L Albumin 2.8 L Procalcitonin Urine Appearance Urine Protein Amorphous Sediment Hyaline Casts Urine Mucus Stool Lactoferrin 05/20/19 05/20/19 05/20/19 00:16 03:58 05:02 WBC 15.6 H RBC 3.49 L Hgb 10.8 L Hct Neutrophils # 13.5 H PT INR APTT ABG pH 7.23 L ABG pCO2 46 H ABG pO2 56 L* ABG HCO3 19 L ABG O2 Saturation 87.8 L Sodium Potassium Chloride Carbon Dioxide BUN Creatinine Glucose POC Glucose (mg/dL) 160 H Plasma Lactic Acid Wild Calcium Phosphorus Magnesium AST Troponin I Total Protein Albumin Procalcitonin Urine Appearance Urine Protein Amorphous Sediment Hyaline Casts Urine Mucus Stool Lactoferrin 05/20/19 05/20/19 05:02 05:03 WBC RBC Hgb Hct Neutrophils # PT INR APTT ABG pH ABG pCO2 ABG pO2 ABG HCO3 ABG O2 Saturation Sodium 134 L Potassium Chloride Carbon Dioxide 21 L BUN 59 H Creatinine 3.08 H Glucose 126 H POC Glucose (mg/dL) 142 H Plasma Lactic Acid Wild Calcium 8.2 L Phosphorus Magnesium AST Troponin I Total Protein Albumin Procalcitonin Urine Appearance Urine Protein Amorphous Sediment Hyaline Casts Urine Mucus Stool Lactoferrin - Diagnostic Findings Additional findings: CT Head wo cont 05/20/19. Cerebral atrophy. No ICH. Nil acute. I have reviewed neuroimages myself. Assessment and Plan Assessment: This morning's exam is consistent with a metabolic encephalopathy, likely due to sepsis and worsening renal function; remainder of neuro exam is non-focal. My index of suspicion for this to be an acute vascular event is fairly low. Plan: -CT Head results reviewed -Carotid duplex and TTE ordered by primary team; will follow up -EEG to look for findings consistent with metabolic encephalopathy and to r/o low likelihood of subclinical seizure -Her CrCl today is 24. Will decrease her gabapentin to 300mg po qd -Will follow up -d/w patient and [facility]. All questions answered. Thank you for this consultation. Please call with ?. Time with Patient: Greater than 30 (Time spent in direct patient care, greater than 50% of which was spent in [id number] counseling and coordination of care: 70 minutes)
[2019-05-20] MEDS ORDERED: FUROSEMIDE 10 MG/ML 10 ML VIAL IV STA (08:32)
[2019-05-20] MEDS ORDERED: AMIODARONE 360 MG in DEXTROSE 5% IN WATER 200 ML IV ONE ×2 (09:00)
--- NOTE | 2019-05-20 09:05 | US ---
EXAMINATION TYPE: US carotid duplex BILAT DATE OF EXAM: 05/20/2019 COMPARISON: US dated 05/05/2018 CLINICAL HISTORY: code stroke. EXAM MEASUREMENTS: RIGHT: Peak Systolic Velocity (PSV) cm/sec ----- Right CCA: 95.4 ----- Right ICA: 135.0 ----- Right ECA: 161.7 ICA/CCA ratio: 1.4 RIGHT: End Diastole cm/sec ----- Right CCA: 5.2 ----- Right ICA: 44.6 ----- Right ECA: 0.0 LEFT: Peak Systolic Velocity (PSV) cm/sec ----- Left CCA: 86.2 ----- Left ICA: 128.5 ----- Left ECA: 116.1 ICA/CCA ratio: 1.5 LEFT: End Diastole cm/sec ----- Left CCA: 13.7 ----- Left ICA: 17.2 ----- Left ECA: 10.8 VERTEBRALS (direction of flow): Right Vertebral: Antegrade Left Vertebral: Antegrade Rhythm: Arrhythmia Slightly elevated peak systolic velocities of the internal carotid arteries and external carotid chloe haleigh however the internal carotid artery to common carotid artery ratio is within normal limits, mode rate plaque. IMPRESSION: 1. Mild degree of grayscale atheromatous plaquing with no sonographically evident hemodynamically sig nificant stenosis within either visualized carotid arterial system. 2. Cardiac arrhythmia is incidentally noted. Correlate with EKG. Criteria for Assigning % of Stenosis / Diameter reduction (Estimation based on the indirect measurements of the internal carotid artery velocities (ICA PSV). 1. Normal (no stenosis)=ICA PSV < 125 cm/s: ratio < 2.0: ICA EDV<40 cm/s. 2. Less than 50% stenosis=ICA PSV < 125 cm/s: ratio < 2.0: ICA EDV<40 cm/s. 3. 50 to 69% stenosis=ICA PSV of 125 to 230 cm/s: ration 2.0 ? 4.0: ICA EDV 40-100 cm/s. 4. Greater than 70% stenosis to near occlusion= ICA PSV > 230 cm/s: ratio > 4.0: ICA EDV > 100 cm/s. 5. Near occlusion= ICA PSV velocities may be low or undetectable: variable ratio and ICA EDV. 6. Total occlusion=unable to detect flow.
[2019-05-20] MEDS: PIPERACILLIN-TAZOBACTAM 3.375 GM in SODIUM CHLORIDE 0.9% 100 ML IVPB SCH ×2 (10:14→20:33)
[2019-05-20] MEDS ORDERED: HEPARIN SODIUM,PORCINE 5,000 UNIT/ML 1 ML VIAL IV ONE (10:18)
[2019-05-20] MEDS ORDERED: HEPARIN SODIUM,PORCINE 5,000 UNIT/ML 1 ML VIAL IV PRN (10:18)
[2019-05-20] MEDS ORDERED: HEPARIN SOD,PORK IN 0.45% NACL 25,000 UNIT in 0.45% NACL 1 250ML.BAG IV SCH (10:30)
[2019-05-20 11:28] LABS: ABG Base Excess -3.6 mmol/L; ABG HCO3 23 mmol/L (21-25); ABG Oxygen Saturation 98.5 % (94-97); ABG PCO2 48 mmHg (35-45); ABG PH 7.29 (7.35-7.45); ABG PO2 98 mmHg (83-108); Allen Test Performed? Yes
[2019-05-20 11:49] LABS: Glucose,Whole Blood 140 mg/dL (75-99)
--- NOTE | 2019-05-20 11:49 | P.PN ---
Subjective Progress Note Date: 05/20/19 Patient is 78-year-old female with a PMH of coronary artery disease status post CABG, aortic valve replacement, paroxysmal atrial fibrillation (on Eliquis), diastolic congestive heart failure, diabetes mellitus, hypertension, hyperlipidemia, and Parkinson's disease was brought into the ED due to multiple episodes of nonbloody diarrhea. The patient was noted to be in severe sepsis in the emergency room, with CT abdomen showing findings consistent with ischemic/inflammatory colitis. She was given fluid resuscitation along with IV antibiotics and was admitted to the medical ICU. She was also noted to have acute kidney injury, and severe lactic acidosis at 9 which subsequently resolved. The patient had persistent hypotension following admission to the ICU for which she was started on a Levophed infusion yesterday. Overnight on 05/19, the patient was noted to have altered mentation with concerns for possible CVA. A code stroke was activated. Neurology evaluated the patient and recommended that she likely has altered mentation due to a metabolic encephalopathy secondary to sepsis and acute kidney injury. Carotid duplex along with a CT brain were obtained which were unremarkable. Nephrology was also consulted and recommended that the patient's NICA was likely due to severe dehydration from diarrhea. She was seen and examined at the bedside in the medical ICU. The patient was confused during the interview, though denied any active complaints. She denied having any active pain including abdominal pain, chest pain, shortness of breath, nausea, or vomiting. She did accurately inform me that her last bowel movement was yesterday which in fact was overnight. Objective - Vital Signs Vital signs: Vital Signs Temp 98.5 F 05/20/19 04:00 Pulse 104 H 05/20/19 11:00 Resp 26 H 05/20/19 11:00 BP 106/47 05/20/19 09:00 Pulse Ox 96 05/20/19 11:00 Intake & Output 05/19/19 05/20/19 05/20/19 18:59 06:59 18:59 Intake Total 9316.208 0820.024 513.2 Output Total 320 495 510 Balance 0833.685 6306.024 3.2 Weight 102 kg Intake: IV 1690 1500 513.2 Amiodarone 360 mg In 33.2 Dextrose 5% in Water 200 ml @ 0.5 MG/MIN 16.667 mls/hr IV .Q12H ONE Rx#: [id number] Dextrose 5% in Water 1, 500 380 000 ml @ 40 mls/hr IV . Q24H AMEYA with Sodium Bicarb (1 Meq/ml) 150 ml Rx#:[id number] Piperacillin-Tazobactam 3 100 100 100 .375 gm In Sodium Chloride 0.9% 100 ml @ 25 mls/hr IVPB Q8HR AMEYA Rx# :[id number] Sodium Chloride 0.9% 1, 1200 900 000 ml @ 100 mls/hr IV . Q10H AMEYA Rx#:[id number] Sodium Chloride 0.9% 1, 390 000 ml @ 130 mls/hr IV . Q7H42M AMEYA Rx#:[id number] Intake, IV Titration 193.595 28.024 Amount Norepinephrine 4 mg In 193.595 28.024 Sodium Chloride 0.9% 250 ml @ 0.05 MCG/KG/MIN 17. 964 mls/hr IV .Q14H9M AMEYA Rx#:[id number] Output: Urine 320 495 510 Other: Voiding Method Indwelling Catheter Indwelling Catheter # Bowel Movements 1 ABP, PAP, CO, CI - Last Documented Arterial Blood Pressure 104/48 - Exam General: Ill-appearing elderly female, in no acute distress, appears stated age, obese HEENT: NC/AT, anicteric sclerae, moist conjunctiva, no lid-lag, PERRLA Cardiovascular: Irregularly irregular, grade 3 systolic murmur appreciated, no rubs, or gallops Lungs: Clear to auscultation, normal respiratory effort, no accessory muscle use Abdominal: Soft, non-tender, non-distended, no guarding, rebound, or rigidity Skin: Warm, dry Extremities: Some anasarca, no contractures Psychiatric: Oriented only to self, not oriented to time or place, pleasant Neuro: CN II-XII grossly intact, Strength 4/5 in all 4 extremities equal, Speech intact, Sensation to light touch grossly intact throughout - Labs CBC & Chem 7: 05/20/19 05:02 05/20/19 05:02 Labs: Abnormal Lab Results - Last 24 Hours (Table) 05/19/19 05/19/19 05/19/19 Range/Units 00:01 02:25 12:24 WBC (3.8-10.6) k/uL RBC (3.80-5.40) m/uL Hgb (11.4-16.0) gm/dL Neutrophils # (1.3-7.7) k/uL PT (9.0-12.0) sec INR (<1.2) APTT (22.0-30.0) sec ABG pH (7.35-7.45) ABG pCO2 (35-45) mmHg ABG pO2 (83-108) mmHg ABG HCO3 (21-25) mmol/L ABG O2 Saturation (94-97) % Sodium (137-145) mmol/L Potassium (3.5-5.1) mmol/L Carbon Dioxide (22-30) mmol/L BUN (7-17) mg/dL Creatinine (0.52-1.04) mg/dL Glucose (74-99) mg/dL POC Glucose (mg/dL) (75-99) mg/dL Plasma Lactic Acid Wild 2.6 H* (0.7-2.0) mmol/L Calcium (8.4-10.2) mg/dL Troponin I (0.000-0.034) ng/mL Total Protein (6.3-8.2) g/dL Albumin (3.5-5.0) g/dL Procalcitonin 14.28 H (0.02-0.09) ng/mL Stool Lactoferrin POSITIVE H (NEGATIVE) 05/19/19 05/19/19 05/19/19 Range/Units 15:33 16:08 16:24 WBC (3.8-10.6) k/uL RBC (3.80-5.40) m/uL Hgb (11.4-16.0) gm/dL Neutrophils # (1.3-7.7) k/uL PT (9.0-12.0) sec INR (<1.2) APTT (22.0-30.0) sec ABG pH (7.35-7.45) ABG pCO2 (35-45) mmHg ABG pO2 (83-108) mmHg ABG HCO3 (21-25) mmol/L ABG O2 Saturation (94-97) % Sodium 136 L (137-145) mmol/L Potassium (3.5-5.1) mmol/L Carbon Dioxide 19 L (22-30) mmol/L BUN 56 H (7-17) mg/dL Creatinine 2.80 H (0.52-1.04) mg/dL Glucose 112 H (74-99) mg/dL POC Glucose (mg/dL) 123 H (75-99) mg/dL Plasma Lactic Acid Wild 2.1 H* (0.7-2.0) mmol/L Calcium 8.1 L (8.4-10.2) mg/dL Troponin I (0.000-0.034) ng/mL Total Protein (6.3-8.2) g/dL Albumin (3.5-5.0) g/dL Procalcitonin (0.02-0.09) ng/mL Stool Lactoferrin (NEGATIVE) 05/19/19 05/19/19 05/19/19 Range/Units 20:36 23:00 23:23 WBC 18.0 H (3.8-10.6) k/uL RBC 3.63 L (3.80-5.40) m/uL Hgb (11.4-16.0) gm/dL Neutrophils # 15.7 H (1.3-7.7) k/uL PT (9.0-12.0) sec INR (<1.2) APTT (22.0-30.0) sec ABG pH (7.35-7.45) ABG pCO2 (35-45) mmHg ABG pO2 (83-108) mmHg ABG HCO3 (21-25) mmol/L ABG O2 Saturation (94-97) % Sodium (137-145) mmol/L Potassium (3.5-5.1) mmol/L Carbon Dioxide (22-30) mmol/L BUN (7-17) mg/dL Creatinine (0.52-1.04) mg/dL Glucose (74-99) mg/dL POC Glucose (mg/dL) 128 H 119 H (75-99) mg/dL Plasma Lactic Acid Wild (0.7-2.0) mmol/L Calcium (8.4-10.2) mg/dL Troponin I (0.000-0.034) ng/mL Total Protein (6.3-8.2) g/dL Albumin (3.5-5.0) g/dL Procalcitonin (0.02-0.09) ng/mL Stool Lactoferrin (NEGATIVE) 0905/19/19 05/19/19 Range/Units 23:23 23:23 23:23 WBC (3.8-10.6) k/uL RBC (3.80-5.40) m/uL Hgb (11.4-16.0) gm/dL Neutrophils # (1.3-7.7) k/uL PT 13.1 H (9.0-12.0) sec INR 1.3 H (<1.2) APTT 35.3 H (22.0-30.0) sec ABG pH (7.35-7.45) ABG pCO2 (35-45) mmHg ABG pO2 (83-108) mmHg ABG HCO3 (21-25) mmol/L ABG O2 Saturation (94-97) % Sodium 135 L (137-145) mmol/L Potassium 5.2 H (3.5-5.1) mmol/L Carbon Dioxide 19 L (22-30) mmol/L BUN 58 H (7-17) mg/dL Creatinine 2.94 H (0.52-1.04) mg/dL Glucose 101 H (74-99) mg/dL POC Glucose (mg/dL) (75-99) mg/dL Plasma Lactic Acid Wild (0.7-2.0) mmol/L Calcium 8.0 L (8.4-10.2) mg/dL Troponin I 0.052 H* (0.000-0.034) ng/mL Total Protein 5.2 L (6.3-8.2) g/dL Albumin 2.8 L (3.5-5.0) g/dL Procalcitonin (0.02-0.09) ng/mL Stool Lactoferrin (NEGATIVE) 05/20/19 05/20/19 05/20/19 Range/Units 00:16 03:58 05:02 WBC 15.6 H (3.8-10.6) k/uL RBC 3.49 L (3.80-5.40) m/uL Hgb 10.8 L (11.4-16.0) gm/dL Neutrophils # 13.5 H (1.3-7.7) k/uL PT (9.0-12.0) sec INR (<1.2) APTT (22.0-30.0) sec ABG pH 7.23 L (7.35-7.45) ABG pCO2 46 H (35-45) mmHg ABG pO2 56 L* (83-108) mmHg ABG HCO3 19 L (21-25) mmol/L ABG O2 Saturation 87.8 L (94-97) % Sodium (137-145) mmol/L Potassium (3.5-5.1) mmol/L Carbon Dioxide (22-30) mmol/L BUN (7-17) mg/dL Creatinine (0.52-1.04) mg/dL Glucose (74-99) mg/dL POC Glucose (mg/dL) 160 H (75-99) mg/dL Plasma Lactic Acid Wild (0.7-2.0) mmol/L Calcium (8.4-10.2) mg/dL Troponin I (0.000-0.034) ng/mL Total Protein (6.3-8.2) g/dL Albumin (3.5-5.0) g/dL Procalcitonin (0.02-0.09) ng/mL Stool Lactoferrin (NEGATIVE) 05/20/19 05/20/19 Range/Units 05:02 05:03 WBC (3.8-10.6) k/uL RBC (3.80-5.40) m/uL Hgb (11.4-16.0) gm/dL Neutrophils # (1.3-7.7) k/uL PT (9.0-12.0) sec INR (<1.2) APTT (22.0-30.0) sec ABG pH (7.35-7.45) ABG pCO2 (35-45) mmHg ABG pO2 (83-108) mmHg ABG HCO3 (21-25) mmol/L ABG O2 Saturation (94-97) % Sodium 134 L (137-145) mmol/L Potassium (3.5-5.1) mmol/L Carbon Dioxide 21 L (22-30) mmol/L BUN 59 H (7-17) mg/dL Creatinine 3.08 H (0.52-1.04) mg/dL Glucose 126 H (74-99) mg/dL POC Glucose (mg/dL) 142 H (75-99) mg/dL Plasma Lactic Acid Wild (0.7-2.0) mmol/L Calcium 8.2 L (8.4-10.2) mg/dL Troponin I (0.000-0.034) ng/mL Total Protein (6.3-8.2) g/dL Albumin (3.5-5.0) g/dL Procalcitonin (0.02-0.09) ng/mL Stool Lactoferrin (NEGATIVE) Microbiology - Last 24 Hours (Table) 05/18/19 17:53 Blood Culture - Preliminary Blood No Growth after 24 hours 05/19/19 00:01 Stool Culture - Preliminary Stool Assessment and Plan Plan: Septic shock, likely secondary to infectious colitis; less likely ischemic colitis (lack of pain or hematochezia) -C/w MICU level of care at this time -C/w Levophed infusion, IV fluids -Continue with Zosyn. We will add Flagyl -F/u blood and stool cultures -Leukocytosis improving. Down to 15 today. -Consider ID consult if patient doesn't improve AMS, likely due to metabolic encephalopathy in setting of sepsis and NICA -C/w treatment of sepsis -Carotid duplex, CT head and Neurology consultation reviewed -Neurochecks -Monitor mental status NICA -Nephrology started patient on Sodium bicarb infusion @ 40 ml/hr -C/w IVFs 100 cc/hr -S/p multiple lasix doses Afib w/ RVRC -Currently off Eliquis due to inability to swallow -Speech evaluation pending -Heparin infusion for now -Cardiology consulted -[facility]ocate started patient on Amiodarone infusion (due to inability to take oral amiodarone home doses) Hypothyroidism -C/w home dose Levothyroxine DVT prophylaxis -Heparin infusion Discussed with: Patient Anticipated discharge date: 4-[address]: [facility] A total of 35 minutes was spent on the care of this complex patient more than 50% of the time was spent in counseling and care coordination.
[2019-05-20 11:51] LABS: INR 1.2 (<1.2); Partial Thromboplastin Time 37.3 sec (22.0-30.0); Prothrombin Time 12.5 sec (9.0-12.0)
--- NOTE | 2019-05-20 11:55 | P.PN ---
Subjective Progress Note Date: 05/20/19 Principal diagnosis: Acute hypoxic respiratory failure related to fluid volume overload, acute gastroenteritis, viral versus bacterial cause, acute lactic acidosis and acute kidney injury This is a pleasant 78-year-old female patient with known history of coronary artery disease, previous bypass surgery, previous aortic valve replacement, along with history of chronic atrial fibrillation and diabetes mellitus and hypothyroidism. The patient has been followed up by Dr. Berry on outpatient basis. The patient acutely became ill this morning. She woke up and she developed nausea and emesis and watery diarrhea which is going on for now. The patient is passing significant amount of liquidy bowel movements. No melanotic. No bright red blood per rectum. No hematemesis. No abdominal pain or distention. No channel history. No ingestion of any contaminated material or food products. No sick contacts. She lives with her daughter and her daughter is healthy and she did not have any gastrointestinal symptoms. She's been eating home food Throughout the past month. No recent antibiotic intake. Reports history of inflammatory bowel disease or infectious colitis. No history of any inflammatory bowel disease. In the ED, the patient a white cell count of 21. The patient and acute kidney injury with a creatinine of 2.1. Lactic acid level was at 9. Potassium level was at 6.0. The patient was found to be borderline hypotensive with a systolic blood pressure in the mid 80s. The patient was given a total of 3 L of IV fluids and the fourth is infusing for now. The patient is also on a maintenance 130 mL an hour normal saline. Resume amount of urine output. She underwent a straight cathetered UA essentially negative with +1 protein. Stool for C. diff is negative. Blood sugar was elevated at 3 on 35. Nevertheless the acetone was negative. She is awake and alert. She is following commands and answering questions. She is currently on normal saline at the rate of 1 30 mL an hour. No fever. No chills. No night sweats. No other complaints otherwise for now. On today's evaluation of 05/19/2019 I'm seeing this patient for a follow-up. Clinically the patient is having liquidy diarrhea. Hemodynamically she is still having the low blood pressure since earlier this morning. The patient was given a total of 6l fluids and the patient was receiving normal saline infusion as maintenance at the rate of 130 mL an hour. The patient was furthermore started on low dose norepinephrine infusion today and this was initiated to maintain a mean artery pressure above 65. The patient is having adequate urine output. Lactic acid levels are improving. White cell count is dropped. Note that the lactic acid level is down to 2.6. The creatinine is at 2.4 for now. The follow-up white cell count is down to 17 from a baseline of 21.9. Stool for C. diff was negative. Blood cultures still pending. The stool culture also pending. CAT scan of the abdomen and pelvis was done yesterday showed moderate circumferential mural thickening of the entire length of the distal half of the transverse colon and descending colon and the sigmoid colon consistent with inflammatory versus infectious colitis. No pneumoperitoneum. The patient is currently on IV Zosyn. No nausea. No vomiting. No abdominal pain. Altered mentation. No fever. No chills. The patient is requesting some oral intake. On 05/20/2019 patient seen in follow-up in the intensive care unit. Last night change in mentation has been noted, patient became more lethargic, confused, but no unilateral motor weakness was noted, her speech was garbled, and there was concern about acute stroke, "stroke code" was called, NIH score was 16 initially, brain CT showed no acute intracranial process, did show cerebral atrophy, and sinusitis. NIH score did improve on subsequent reevaluation and was down to 14, however patient remains lethargic, and a blood gas was obtained showing pO2 of 56, pCO2 46, and pH of 7.23, consistent with mixed respiratory and metabolic acidosis and acute hypoxemic respiratory failure. Chest x-ray this morning showed a small bilateral pleural effusions, and cephalization, changes to sit with fluid volume overload and patient was given a dose of IV Lasix 60 mg 1. Patient remains on a small dose of Levofed at 4 mics per minute, patient did receive significant amount of fluid and initial fluid resuscitation, over 6 L in the fluid boluses for hypotension, acute kidney injury related to nausea, vomiting, diarrhea, and significant intravascular volume depletion. Patient did have 2 more liquid stools last night, C. diff was negative, stool cultures are pending at this time, blood culture showed no growth, she has had low-grade fevers. Remains on the bicarb infusion, and today's blood work shows serum bicarb slightly improved up to 21, serum sodium was 134, potassium is 5.0, quite is 105, BUN is 59, and creatinine is 3.08, slight worsening renal profile is noted. White count is improved, down to 15.6. Lung sounds are diminished, patient is lethargic, but is opening eyes, she is inattentive, she knows she is in the hospital, but was falling asleep or she could tell me the month of the year. He was placed on BiPAP support with pressures of 12 and 6, and FiO2 of 100%. Her family was updated on her condition. Patient remains critically ill. He does have a history of bioprosthetic aortic valve and the echocardiogram showed aortic regurgitation, and abnormally functioning bioprosthetic aortic valve, EF of 45-50%, and severe pulmonary hypertension with PA systolic of 64 mmHg. Remains on Zosyn for antibiotic coverage, there has been no nausea or vomiting, no abdominal pain, her abdomen is soft, she denies any abdominal tenderness. Objective - Vital Signs Vital signs: Vital Signs Temp 98.5 F 05/20/19 04:00 Pulse 101 H 05/20/19 09:00 Resp 25 H 05/20/19 09:00 BP 106/47 05/20/19 09:00 Pulse Ox 95 05/20/19 09:00 Intake & Output 05/19/19 05/20/19 05/20/19 18:59 06:59 18:59 Intake Total 3721.535 8349.024 300 Output Total 320 495 260 Balance 8769.983 6547.024 40 Weight 102 kg Intake: IV 1690 1500 300 Dextrose 5% in Water 1, 500 300 000 ml @ 100 mls/hr IV . [id number] AMEYA with Sodium Bicarb (1 Meq/ml) 150 ml Rx#:[id number] Piperacillin-Tazobactam 3 100 100 .375 gm In Sodium Chloride 0.9% 100 ml @ 25 mls/hr IVPB Q8HR AMEYA Rx# :[id number] Sodium Chloride 0.9% 1, 1200 900 000 ml @ 100 mls/hr IV . Q10H AMEYA Rx#:[id number] Sodium Chloride 0.9% 1, 390 000 ml @ 130 mls/hr IV . Q7H42M AMEYA Rx#:[id number] Intake, IV Titration 193.595 28.024 Amount Norepinephrine 4 mg In 193.595 28.024 Sodium Chloride 0.9% 250 ml @ 0.05 MCG/KG/MIN 17. 964 mls/hr IV .Q14H9M [facility] Rx#:[id number] Output: Urine 320 495 260 Other: Voiding Method Indwelling Catheter Indwelling Catheter # Bowel Movements 1 ABP, PAP, CO, CI - Last Documented Arterial Blood Pressure 104/48 - Exam GENERAL EXAM: Lethargic, 78-year-old white female, on BiPAP support, with pressures of 12 and 6, and FiO2 100%, arousable, but drifts back to sleep comfortable in no apparent distress. HEAD: Normocephalic/atraumatic. EYES: Normal reaction of pupils, equal size. Conjunctiva pink, sclera white. NOSE: Clear with pink turbinates. THROAT: No erythema or exudates. NECK: No masses, no JVD, no thyroid enlargement, no adenopathy. CHEST: No chest wall deformity. Symmetrical expansion. LUNGS: Equal air entry with diminished breath sounds at the bases. No rhonchi or wheezing CVS: Regular rate and rhythm, normal S1 and S2, no gallops, no rubs. 3/6 systolic ejection murmur heard over the apex radiating to the neck area ABDOMEN: Soft, nontender. No hepatosplenomegaly, normal bowel sounds, no guarding or rigidity. EXTREMITIES: No clubbing, no edema, no cyanosis, 2+ pulses and upper and lower extremities. MUSCULOSKELETAL: Muscle strength and tone normal. SPINE: No scoliosis or deformity SKIN: No rashes CENTRAL NERVOUS SYSTEM: Lethargic, oriented 2, to person and place No focal deficits, tone is normal in all 4 extremities. - Labs CBC & Chem 7: 05/20/19 05:02 05/20/19 05:02 Labs: Abnormal Lab Results - Last 24 Hours (Table) 05/19/19 05/19/19 05/19/19 Range/Units 00:01 02:25 12:24 WBC (3.8-10.6) k/uL RBC (3.80-5.40) m/uL Hgb (11.4-16.0) gm/dL Neutrophils # (1.3-7.7) k/uL PT (9.0-12.0) sec INR (<1.2) APTT (22.0-30.0) sec ABG pH (7.35-7.45) ABG pCO2 (35-45) mmHg ABG pO2 (83-108) mmHg ABG HCO3 (21-25) mmol/L ABG O2 Saturation (94-97) % Sodium (137-145) mmol/L Potassium (3.5-5.1) mmol/L Carbon Dioxide (22-30) mmol/L BUN (7-17) mg/dL Creatinine (0.52-1.04) mg/dL Glucose (74-99) mg/dL POC Glucose (mg/dL) (75-99) mg/dL Plasma Lactic Acid Wild 2.6 H* (0.7-2.0) mmol/L Calcium (8.4-10.2) mg/dL Troponin I (0.000-0.034) ng/mL Total Protein (6.3-8.2) g/dL Albumin (3.5-5.0) g/dL Procalcitonin 14.28 H (0.02-0.09) ng/mL Stool Lactoferrin POSITIVE H (NEGATIVE) 05/19/19 05/19/19 05/19/19 Range/Units 15:33 16:08 16:24 WBC (3.8-10.6) k/uL RBC (3.80-5.40) m/uL Hgb (11.4-16.0) gm/dL Neutrophils # (1.3-7.7) k/uL PT (9.0-12.0) sec INR (<1.2) APTT (22.0-30.0) sec ABG pH (7.35-7.45) ABG pCO2 (35-45) mmHg ABG pO2 (83-108) mmHg ABG HCO3 (21-25) mmol/L ABG O2 Saturation (94-97) % Sodium 136 L (137-145) mmol/L Potassium (3.5-5.1) mmol/L Carbon Dioxide 19 L (22-30) mmol/L BUN 56 H (7-17) mg/dL Creatinine 2.80 H (0.52-1.04) mg/dL Glucose 112 H (74-99) mg/dL POC Glucose (mg/dL) 123 H (75-99) mg/dL Plasma Lactic Acid Wild 2.1 H* (0.7-2.0) mmol/L Calcium 8.1 L (8.4-10.2) mg/dL Troponin I (0.000-0.034) ng/mL Total Protein (6.3-8.2) g/dL Albumin (3.5-5.0) g/dL Procalcitonin (0.02-0.09) ng/mL Stool Lactoferrin (NEGATIVE) 05/19/19 05/19/19 05/19/19 Range/Units 20:36 23:00 23:23 WBC 18.0 H (3.8-10.6) k/uL RBC 3.63 L (3.80-5.40) m/uL Hgb (11.4-16.0) gm/dL Neutrophils # 15.7 H (1.3-7.7) k/uL PT (9.0-12.0) sec INR (<1.2) APTT (22.0-30.0) sec ABG pH (7.35-7.45) ABG pCO2 (35-45) mmHg ABG pO2 (83-108) mmHg ABG HCO3 (21-25) mmol/L ABG O2 Saturation (94-97) % Sodium (137-145) mmol/L Potassium (3.5-5.1) mmol/L Carbon Dioxide (22-30) mmol/L BUN (7-17) mg/dL Creatinine (0.52-1.04) mg/dL Glucose (74-99) mg/dL POC Glucose (mg/dL) 128 H 119 H (75-99) mg/dL Plasma Lactic Acid Wild (0.7-2.0) mmol/L Calcium (8.4-10.2) mg/dL Troponin I (0.000-0.034) ng/mL Total Protein (6.3-8.2) g/dL Albumin (3.5-5.0) g/dL Procalcitonin (0.02-0.09) ng/mL Stool Lactoferrin (NEGATIVE) 05/19/19 05/19/19 05/19/19 Range/Units 23:23 23:23 23:23 WBC (3.8-10.6) k/uL RBC (3.80-5.40) m/uL Hgb (11.4-16.0) gm/dL Neutrophils # (1.3-7.7) k/uL PT 13.1 H (9.0-12.0) sec INR 1.3 H (<1.2) APTT 35.3 H (22.0-30.0) sec ABG pH (7.35-7.45) ABG pCO2 (35-45) mmHg ABG pO2 (83-108) mmHg ABG HCO3 (21-25) mmol/L ABG O2 Saturation (94-97) % Sodium 135 L (137-145) mmol/L Potassium 5.2 H (3.5-5.1) mmol/L Carbon Dioxide 19 L (22-30) mmol/L BUN 58 H (7-17) mg/dL Creatinine 2.94 H (0.52-1.04) mg/dL Glucose 101 H (74-99) mg/dL POC Glucose (mg/dL) (75-99) mg/dL Plasma Lactic Acid Wild (0.7-2.0) mmol/L Calcium 8.0 L (8.4-10.2) mg/dL Troponin I 0.052 H* (0.000-0.034) ng/mL Total Protein 5.2 L (6.3-8.2) g/dL Albumin 2.8 L (3.5-5.0) g/dL Procalcitonin (0.02-0.09) ng/mL Stool Lactoferrin (NEGATIVE) 05/20/19 05/20/19 05/20/19 Range/Units 00:16 03:58 05:02 WBC 15.6 H (3.8-10.6) k/uL RBC 3.49 L (3.80-5.40) m/uL Hgb 10.8 L (11.4-16.0) gm/dL Neutrophils # 13.5 H (1.3-7.7) k/uL PT (9.0-12.0) sec INR (<1.2) APTT (22.0-30.0) sec ABG pH 7.23 L (7.35-7.45) ABG pCO2 46 H (35-45) mmHg ABG pO2 56 L* (83-108) mmHg ABG HCO3 19 L (21-25) mmol/L ABG O2 Saturation 87.8 L (94-97) % Sodium (137-145) mmol/L Potassium (3.5-5.1) mmol/L Carbon Dioxide (22-30) mmol/L BUN (7-17) mg/dL Creatinine (0.52-1.04) mg/dL Glucose (74-99) mg/dL POC Glucose (mg/dL) 160 H (75-99) mg/dL Plasma Lactic Acid Wild (0.7-2.0) mmol/L Calcium (8.4-10.2) mg/dL Troponin I (0.000-0.034) ng/mL Total Protein (6.3-8.2) g/dL Albumin (3.5-5.0) g/dL Procalcitonin (0.02-0.09) ng/mL Stool Lactoferrin (NEGATIVE) 05/20/19 05/20/19 Range/Units 05:02 05:03 WBC (3.8-10.6) k/uL RBC (3.80-5.40) m/uL Hgb (11.4-16.0) gm/dL Neutrophils # (1.3-7.7) k/uL PT (9.0-12.0) sec INR (<1.2) APTT (22.0-30.0) sec ABG pH (7.35-7.45) ABG pCO2 (35-45) mmHg ABG pO2 (83-108) mmHg ABG HCO3 (21-25) mmol/L ABG O2 Saturation (94-97) % Sodium 134 L (137-145) mmol/L Potassium (3.5-5.1) mmol/L Carbon Dioxide 21 L (22-30) mmol/L BUN 59 H (7-17) mg/dL Creatinine 3.08 H (0.52-1.04) mg/dL Glucose 126 H (74-99) mg/dL POC Glucose (mg/dL) 142 H (75-99) mg/dL Plasma Lactic Acid Wild (0.7-2.0) mmol/L Calcium 8.2 L (8.4-10.2) mg/dL Troponin I (0.000-0.034) ng/mL Total Protein (6.3-8.2) g/dL Albumin (3.5-5.0) g/dL Procalcitonin (0.02-0.09) ng/mL Stool Lactoferrin (NEGATIVE) Microbiology - Last 24 Hours (Table) 05/18/19 17:53 Blood Culture - Preliminary Blood No Growth after 24 hours 05/19/19 00:01 Stool Culture - Preliminary Stool Assessment and Plan Plan: Assessment: 1 acute hypoxemic and hypercapnic respiratory failure, related to fluid volume overload, secondary to fluid resuscitation during initial phases of septic shock. There is also a component of metabolic acidosis due to to acute kidney injury. 2 lethargy, acute mental status change, CT brain was negative, patient has evidence of respiratory and metabolic acidosis 3 acute gastroenteritis, exact cause is not clear. Rule out viral gastroenteritis. Rule out bacterial causes. Doubt any inflammatory bowel disease. Doubt ischemic colitis. Doubt C. diff colitis. The patient continues to have liquidy loose diarrhea and the CAT scan of the abdomen and pelvis showed mural thickening and inflammatory changes involving the transverse and descending and sigmoid colon. Stool for C. diff has been negative. Awaiting stool cultures. Awaiting blood cultures. The patient is currently on IV Zosyn. 4 acute lactic acidosis, improving 5 acute kidney injury secondary to above 6 acute leukocytosis secondary to above, improving 7 hypotension secondary to above, received a total of 6 L of IV fluids. The patient is also on pressors for now. 8 coronary artery disease with previous bypass surgery and recent cardiac catheterization from February 2019 showing subtotal occluded LAD with competitive flow from SVG and mild RCA disease with a SVG to RCA and LAD being both patent 9 aortic valve replacement 10 secondary pulmonary hypertension 11 chronic atrial fibrillation maintained on long-term anticoagulation with Eliquis 12 diabetes mellitus 13 hyperlipidemia 14 hypothyroidism 15 Parkinson's disease Plan: We'll continue with BiPAP support, follow blood gas showed slight improvement but remains acidotic. May consider giving the patient a trial of nasal cannula later today. Patient was given a dose of IV Lasix, TV with the vasopressor support, patient is unable to take anything orally right now, she was started on her own drip in view of frequent PVCs on the monitor, will start heparin infusion after central line will be placed, Eliquis is on hold related to pat ient's lethargy and inability to safely swallow medications. Cultures remain negative, stool cultures are negative, C. diff is negative. Episodes of diarrhea have decreased in frequency. Patient continues on a carb infusion, continue same antibiotics. Cardiology has been consulted. Neurology evaluation was obtained, and workup for acute CVA is been negative, and mental status changes felt to be related to metabolic encephalopathy. Continue close hemodynamic monitoring, patient will remain in the intensive care unit, patient's family has been updated on patient's progress. I performed a history & physical examination of the patient and discussed their management with my nurse practitioner, Eneida Hayes. I reviewed the nurse practitioner's note and agree with the documented findings and plan of care. Lung sounds are positive for diminished breath sounds. The findings and the i mpression was discussed with the patient. I attest to the documentation by the nurse practitioner. Time with Patient: Greater than 30
[2019-05-20] MEDS: ASPIRIN 81 MG PO SCH (12:00)
[2019-05-20] MEDS: PANTOPRAZOLE 40 MG TABLET PO SCH (12:00)
[2019-05-20] MEDS: GABAPENTIN 300 MG CAP PO SCH (12:00)
[2019-05-20] MEDS: CARBIDOPA-LEVODOPA 25-100 MG 1 EACH TAB PO SCH ×4 (12:00→20:53)
[2019-05-20] MEDS: METOPROLOL TARTRATE 50 MG TAB PO SCH ×2 (12:00→20:36)
--- NOTE | 2019-05-20 12:23 | XR ---
EXAMINATION TYPE: XR chest 1V portable DATE OF EXAM: 05/20/2019 COMPARISON: Prior chest x-ray 01/05/2019, 05/18/2019 HISTORY: Shortness of breath TECHNIQUE: Single frontal view of the chest is obtained. FINDINGS: Patient is rotated and post median sternotomy. Suspect is a spinal curvature. There are ov erlying cardiac leads. No pneumothorax or pleural effusion. Patient shows aortic valve replacement ch malena. The heart is enlarged. Central vascularity appears somewhat prominently as on prior. Interstiti um appears prominently. IMPRESSION: Difficult to exclude pulmonary venous hypertension and early interstitial edema. Correla te clinically. Rotated exam. Postop changes.
[2019-05-20] MEDS: metroNIDAZOLE-NS PMX 500 MG in SALINE 1 100ML.BAG IVPB SCH ×2 (12:33→18:41)
--- NOTE | 2019-05-20 13:54 | EEG ---
ELECTROENCEPHALOGRAM REPORT DATE OF TESTIN05/20/2019 CLINICAL PROBLEM: Patient is hospitalized in the ICU with sepsis and infective colitis. A code stroke was called last night because of deteriorating mental status and a question of left facial droop. Patient continues to have altered mental status. EEG was requested to rule out epileptic activity. TYPE OF RECORDING: Bedside tracing using the 10-20 international electrode placement system. No sedation was given prior to the beginning of this recording. FINDINGS: The background of this tracing is seen with a polymorphic theta and delta slowing. Photic stimulation does not elicit a driving response. Hyperventilation is not performed in this recording. There is no definitive sleep architecture seen. There is no background asymmetry, ictal or interictal patterns appreciated. IMPRESSION: This is an abnormal electroencephalogram with excessive background slowing whose pattern can be consistent with a metabolic encephalopathy. There is no background asymmetry or epileptiform discharges seen. Clinical correlation is advised. WALESKA / LUIS: [id number] / MTDD
[2019-05-20 16:37] LABS: Glucose,Whole Blood 134 mg/dL (75-99)
[2019-05-20 18:52] LABS: Calcium 8.3 mg/dL (8.4-10.2); Potassium 4.2 mmol/L (3.5-5.1)
--- NOTE | 2019-05-20 19:48 | PN ---
PROGRESS NOTE Patient is seen for followup for acute kidney injury. Last night, patient became quite confused. She was placed on BiPAP. She remains on Levophed at about 4 mcg. The urine output has been borderline. The patient received a dose of Lasix yesterday, 40 mg followed by another 60 mg dose. 24 hour urine output was about 800 mL. The patient has had about 30-60 mL/hour. PHYSICAL EXAMINATION: This morning, patient is maintained on BiPAP. She is oriented x2. She is not in any acute distress. Blood pressure was 104/48, heart rate 90 per minute. Patient is afebrile. Examination of the heart S1, S2. Examination of the lungs, bilateral breath sounds are heard. Abdomen is soft, nontender. Exam of lower extremities shows trace edema bilaterally. CROWNING INSPECTOR exam shows patient is confused, but moving all 4 extremities. LAB: Show sodium 134, potassium 5.0, chloride 105, BUN 59, serum creatinine of 3.08, CO2 was 21. ASSESSMENT: 1. Acute kidney injury secondary to hypotension, hypoperfusion, nonoliguric. However, urine output was on the lower side yesterday but has picked up since this morning. Patient received a dose of IV Lasix as well. She appears to be volume overloaded. I will decrease the IV fluids. 2. Mild metabolic acidosis, started on IV bicarb, decrease the rate to about 40 mL an hour and DC the bicarb drip later on depending on the repeat labs this evening. 3. Encephalopathy possibly related to hypoxia, maintained on BiPAP. 4. Hyperkalemia associated with acute kidney injury, now improved. Expect further improvement as urine output picks up. 5. Lactic acidosis, now resolved, status post 6-7 L of IV fluids post admission. 6. Status post bioprosthetic valve replacement for aortic valve. 7. Pulmonary hypertension. PLAN: Lasix IV x1 this morning, decrease bicarb drip. Repeat labs this evening for possible discontinuation of the bicarb drip. Check magnesium. MMODL / IJN: [id number] /
[2019-05-20 20:17] LABS: Glucose,Whole Blood 142 mg/dL (75-99)
[2019-05-20] MEDS: AMIODARONE 300 MG in DEXTROSE 5% IN WATER 250 ML IV SCH ×2 (20:33)
[2019-05-20] MEDS: APIXABAN 5 MG TAB PO SCH (20:52)
[2019-05-20] MEDS: ATORVASTATIN 10 MG TAB PO SCH (20:52)
[2019-05-21 00:17] LABS: Glucose,Whole Blood 165 mg/dL (75-99)
[2019-05-21] MEDS: INSULIN ASPART (NovoLOG) 100 UNIT/ML VIAL SQ SCH ×6 (01:19→20:20)
[2019-05-21] MEDS: metroNIDAZOLE-NS PMX 500 MG in SALINE 1 100ML.BAG IVPB SCH ×3 (01:19→16:21)
[2019-05-21 04:51] LABS: Glucose,Whole Blood 162 mg/dL (75-99)
[2019-05-21] MEDS: NOREPINEPHRINE 4 MG in SODIUM CHLORIDE 0.9% 250 ML IV SCH ×2 (05:38→19:41)
[2019-05-21] MEDS: AMIODARONE 300 MG in DEXTROSE 5% IN WATER 250 ML IV SCH ×4 (05:38→08:38)
[2019-05-21 06:20] LABS: HCT 30.6 % (34.0-46.0); HGB 10.4 gm/dL (11.4-16.0); MCH 31.8 pg (25.0-35.0); MCHC 34.1 g/dL (31.0-37.0); MCV 93.1 fL (80.0-100.0); Mean Platelet Volume 7.4; Platelet Count 175 k/uL (150-450); RBC 3.28 m/uL (3.80-5.40); RDW 12.8 % (11.5-15.5); WBC 15.7 k/uL (3.8-10.6)
[2019-05-21 07:01] LABS: Calcium 7.5 mg/dL (8.4-10.2); Magnesium 1.7 mg/dL (1.6-2.3); Potassium 3.7 mmol/L (3.5-5.1)
[2019-05-21 08:53] LABS: Glucose,Whole Blood 168 mg/dL (75-99)
[2019-05-21] MEDS ORDERED: AMIODARONE 200 MG TAB PO SCH (09:00)
--- NOTE | 2019-05-21 09:21 | P.PN ---
Subjective Progress Note Date: 05/21/19 Principal diagnosis: Metabolic encephalopathy due to sepsis and renal insufficiency EEG. Carotid duplex. No acute neuro events O/N. Patient without neuro c/o. Objective - Vital Signs Vital signs: Vital Signs Temp 98.6 F 05/21/19 04:00 Pulse 74 05/21/19 05:01 Resp 20 05/21/19 05:01 BP 106/47 05/21/19 05:01 Pulse Ox 98 05/21/19 05:01 Intake & Output 05/20/19 05/21/19 05/21/19 18:59 06:59 18:59 Intake Total 9523.341 7174.601 124 Output Total 1135 805 175 Balance 69.621 252.601 -51 Weight 104.2 kg Intake: IV 996.6 758 49 Amiodarone 360 mg In 133.6 50 Dextrose 5% in Water 200 ml @ 0.5 MG/MIN 16.667 mls/hr IV .Q12H [facility] Rx#: [id number] Dextrose 5% in Water 1, 660 400 40 000 ml @ 40 mls/hr IV . Q24H [facility] with Sodium Bicarb (1 Meq/ml) 150 ml Rx#:[id number] Piperacillin-Tazobactam 3 100 100 .375 gm In Sodium Chloride 0.9% 100 ml @ 25 mls/hr IVPB Q8HR [facility] Rx# :[id number] Pressure Bag 3 108 9 metroNIDAZOLE-NS PMX 500 100 100 mg In Saline 1 100ml.bag @ 100 mls/hr IVPB Q8HR [facility] Rx#:[id number] Intake, IV Titration 208.021 299.601 75 Amount Amiodarone 300 mg In 227.083 75 Dextrose 5% in Water 250 ml @ 0.5 MG/MIN 25 mls/hr IV .Q10H [facility] Rx#: [id number] Norepinephrine 4 mg In 208.021 72.518 Sodium Chloride 0.9% 250 ml @ 0.05 MCG/KG/MIN 17. 964 mls/hr IV .Q14H9M [facility] Rx#:[id number] Output: Urine 1135 805 175 Other: Voiding Method Indwelling Catheter Indwelling Catheter # Bowel Movements 1 ABP, PAP, CO, CI - Last Documented Arterial Blood Pressure 105/44 - Exam Gen NAD Pleasant and cooperative MS Somnolent but easily arousable to normal voice Today she is alert to [facility]. Able to readily state her name and age. Disoriented to month/year Able to follow all simple commands CN II-XII grossly intact no nystagmus Motor Normal bulk/tone No tremors [place] x4 Sens Intact to LT x4 Coord Not tested DTRs 1+/4 sym throughout Gait Deferred - Labs CBC & Chem 7: 05/21/19 06:00 05/21/19 06:00 Labs: Abnormal Lab Results - Last 24 Hours (Table) 05/20/19 05/20/19 05/20/19 Range/Units 11:14 11:20 11:38 WBC (3.8-10.6) k/uL RBC (3.80-5.40) m/uL Hgb (11.4-16.0) gm/dL Hct (34.0-46.0) % PT 12.5 H (9.0-12.0) sec INR 1.2 H (<1.2) APTT 37.3 H (22.0-30.0) sec ABG pH 7.29 L (7.35-7.45) ABG pCO2 48 H (35-45) mmHg ABG O2 Saturation 98.5 H (94-97) % Sodium (137-145) mmol/L Chloride (98-107) mmol/L BUN (7-17) mg/dL Creatinine (0.52-1.04) mg/dL Glucose (74-99) mg/dL POC Glucose (mg/dL) 140 H (75-99) mg/dL Calcium (8.4-10.2) mg/dL 05/20/19 05/20/19 05/20/19 Range/Units 16:26 18:25 20:06 WBC (3.8-10.6) k/uL RBC (3.80-5.40) m/uL Hgb (11.4-16.0) gm/dL Hct (34.0-46.0) % PT (9.0-12.0) sec INR (<1.2) APTT (22.0-30.0) sec ABG pH (7.35-7.45) ABG pCO2 (35-45) mmHg ABG O2 Saturation (94-97) % Sodium 135 L (137-145) mmol/L Chloride (98-107) mmol/L BUN 57 H (7-17) mg/dL Creatinine 2.74 H (0.52-1.04) mg/dL Glucose 140 H (74-99) mg/dL POC Glucose (mg/dL) 134 H 142 H (75-99) mg/dL Calcium 8.3 L (8.4-10.2) mg/dL 05/21/19 05/21/19 05/21/19 Range/Units 00:06 04:40 06:00 WBC 15.7 H (3.8-10.6) k/uL RBC 3.28 L (3.80-5.40) m/uL Hgb 10.4 L (11.4-16.0) gm/dL Hct 30.6 L (34.0-46.0) % PT (9.0-12.0) sec INR (<1.2) APTT (22.0-30.0) sec ABG pH (7.35-7.45) ABG pCO2 (35-45) mmHg ABG O2 Saturation (94-97) % Sodium (137-145) mmol/L Chloride (98-107) mmol/L BUN (7-17) mg/dL Creatinine (0.52-1.04) mg/dL Glucose (74-99) mg/dL POC Glucose (mg/dL) 165 H 162 H (75-99) mg/dL Calcium (8.4-10.2) mg/dL 05/21/19 Range/Units 06:00 WBC (3.8-10.6) k/uL RBC (3.80-5.40) m/uL Hgb (11.4-16.0) gm/dL Hct (34.0-46.0) % PT (9.0-12.0) sec INR (<1.2) APTT (22.0-30.0) sec ABG pH (7.35-7.45) ABG pCO2 (35-45) mmHg ABG O2 Saturation (94-97) % Sodium (137-145) mmol/L Chloride 108 H (98-107) mmol/L BUN 52 H (7-17) mg/dL Creatinine 2.21 H (0.52-1.04) mg/dL Glucose 147 H (74-99) mg/dL POC Glucose (mg/dL) (75-99) mg/dL Calcium 7.5 L (8.4-10.2) mg/dL Microbiology - Last 24 Hours (Table) 05/18/19 17:53 Blood Culture - Preliminary Blood No Growth after 48 hours - Imaging and Cardiology Carotid duplex 05/20/19. Mild atheromatous plaquing without hemodynamically significant stenosis in the anterior circulation. Antegrade flow in both vertebral arteries. EEG 05/20/19. Polymorphic theta and delta slowing that can be consistent with metabolic encephalopathy. No EPD. TTE 05/19/19. LV size normal. Moderate concentric LVH. EF 45-50%. RV mildly enlarged. Mild LAE. Mild MR. Moderate TR. Severe pulmonary HTN. Tr AL. Assessment and Plan Assessment: Metabolic encephalopathy, likely due to sepsis and worsening renal function; remainder of neuro exam continues to be non-focal. Plan: -CT Head, carotid duplex, EEG and TTE results reviewed -EEG does not show EPD and whose findings can be consistent with metabolic encephalopathy -Will continue her on reduced GBP given decreased renal function -d/w patient and [employer]. All questions answered -Neurology will be available again on 05/24/19. Thank you again for this consultation. Please call with ?. Time with Patient: Less than 30 (Time spent in direct patient care, greater than 50% of which was spent in [id number] counseling and coordination of care: 25 minutes)
[2019-05-21] MEDS: PANTOPRAZOLE 40 MG TABLET PO SCH (09:28)
[2019-05-21] MEDS: CARBIDOPA-LEVODOPA 25-100 MG 1 EACH TAB PO SCH ×4 (09:29→21:55)
[2019-05-21] MEDS: APIXABAN 5 MG TAB PO SCH ×2 (09:29→20:16)
[2019-05-21] MEDS: AMIODARONE 200 MG TAB PO SCH ×2 (09:29→09:34)
[2019-05-21] MEDS: GABAPENTIN 300 MG CAP PO SCH (09:30)
[2019-05-21] MEDS: LEVOTHYROXINE 137 MCG TAB PO SCH (09:30)
[2019-05-21] MEDS: ASPIRIN 81 MG PO SCH (09:30)
[2019-05-21] MEDS: PIPERACILLIN-TAZOBACTAM 3.375 GM in SODIUM CHLORIDE 0.9% 100 ML IVPB SCH ×2 (09:35→20:15)
[2019-05-21 09:53] LABS: Glucose,Whole Blood 238 mg/dL (75-99)
[2019-05-21] MEDS: SODIUM CHLORIDE 0.9% 1,000 ML IV SCH (10:05)
--- NOTE | 2019-05-21 10:49 | P.CRDCN ---
History of Present Illness Consult date: 05/21/19 History of present illness: This is a 78-year-old female with a known history of coronary artery disease, previous bypass surgery and also previous aortic valve replacement along with chronic atrial fibrillation diabetes mellitus and hypothyroidism. She follows with Dr. Berry regularly. She had a DON examination in December 2018. She was found properly functioning prosthetic valve. She also had cardioversion for atrial fibrillation. A cardiac catheterization done in February showed patent vein graft to the RCA and also LAD. Patient is now admitted to the hospital with nausea and one Mrs. and watery diarrhea. Apparently she had significantly daily bowel movements. She was also found to have acute renal failure with creatinine of 2.1. Her creatinine has gotten worse gradually and went up to 3 which seemed to gradually improving. Stool for Clostridium deficit is negative. She is being followed by service desk associate and also neurologist. Apparently she also devel oped a metabolic encephalopathy. She has been in atrial fibrillation since admission. She echo showed normal LV function with a normally functioning prosthetic valve with high gradient and also moderate regurgitation. However, patient's overall critical status is improving. She is in atrial fibrillation with a moderate ventricular response. We'll continue current medical therapy. I will discuss with the Dr. Berry regarding valve function, because DON done in December showed a properly functioning valve. Further recommendations depend upon the clinical course. Review of Systems As per the chart Past Medical History Past Medical History: Atrial Fibrillation, Coronary Artery Disease (CAD), Heart Failure, Diabetes Mellitus, Hyperlipidemia, Hypertension, Osteoarthritis (OA), Pneumonia, Thyroid Disorder Additional Past Medical History / Comment(s): Leaky valve, Parkinsons, neuropathy legs, Pneumonia 2 yrs ago. Constipation History of Any Multi-Drug Resistant Organisms: None Reported Past Surgical History: Cholecystectomy, Coronary Bypass/CABG, Heart Catheterization Additional Past Surgical History / Comment(s): Aortic valve replacement with double cardiac bypass surgery(2010), bilateral cataracts removed. Cardioversion 02/05/19. Past Anesthesia/Blood Transfusion Reactions: No Reported Reaction Past Psychological History: No Psychological Hx Reported Smoking Status: Never smoker Past Alcohol Use History: None Reported Past Drug Use History: None Reported - Past Family History Father Family Medical History: Myocardial Infarction ([place]) Mother Family Medical History: Cancer Additional Family Medical History / Comment(s): in her sleep at 89. Medications and Allergies Home Medications Medication Instructions Recorded Confirmed Type Gabapentin [Neurontin] 300 mg PO BID 09/29/16 05/18/19 History Simvastatin [Zocor] 20 mg PO HS 09/29/16 05/18/19 History Carbidopa-Levodopa 25-100 mg 1 tab PO QID 01/05/19 05/18/19 History [Sinemet 25-100 mg] metFORMIN HCL [Glucophage] 1,000 mg PO BID 01/05/19 05/18/19 History Apixaban [Eliquis] 5 mg PO BID #60 tab 01/09/19 05/18/19 Rx Aspirin 81 mg PO DAILY chew 01/09/19 05/18/19 Rx Benazepril [Lotensin] 10 mg PO DAILY 01/09/19 05/18/19 History Furosemide [Lasix] 40 mg PO BID #60 tab 01/09/19 05/18/19 Rx Levothyroxine Sodium [Synthroid] 137 mcg PO DAILY #30 tab 01/09/19 05/18/19 Rx Naproxen [Naprosyn] 500 mg PO Q12HR PRN #0 01/09/19 05/18/19 Rx Amiodarone [Cordarone] 200 mg PO DAILY 05/18/19 05/18/19 History Metoprolol Tartrate [Lopressor] 25 mg PO BID 05/18/19 05/18/19 History glipiZIDE [Glucotrol] 5 mg PO AC-BRKFST 05/18/19 05/18/19 History Allergies Allergy/AdvReac Type Severity Reaction Status Date / Time No Known Allergies Allergy Verified 05/19/19 08:04 Physical Exam Vitals: Vital Signs Temp Pulse Resp BP Pulse Ox 05/21/19 05:01 74 20 106/47 98 05/21/19 04:30 76 23 106/47 98 05/21/19 04:00 98.6 F 80 25 H 106/47 99 05/21/19 03:37 78 13 106/47 99 05/21/19 03:00 79 24 106/47 99 05/21/19 02:33 79 8 L 106/47 100 05/21/19 02:00 80 25 H 106/47 99 05/21/19 01:30 79 24 106/47 100 05/21/19 01:00 78 24 100 05/21/19 00:30 78 24 106/47 100 05/21/19 00:00 98.6 F 79 20 106/47 99 05/20/19 23:50 79 24 106/47 100 05/20/19 23:30 79 19 100 05/20/19 23:00 90 13 106/47 99 05/20/19 22:30 77 22 106/47 100 05/20/19 22:00 77 22 100 05/20/19 21:30 78 20 106/47 99 05/20/19 21:00 89 17 106/47 97 05/20/19 20:30 102 H 22 106/47 98 05/20/19 20:00 99.3 F 89 20 106/47 98 05/20/19 19:30 82 22 106/47 98 05/20/19 19:00 92 22 106/47 98 05/20/19 18:00 99 24 99 05/20/19 17:30 103 H 23 97 05/20/19 17:00 92 22 98 05/20/19 16:30 105 H 22 98 05/20/19 16:00 98.9 F 102 H 25 H 99 05/20/19 15:30 103 H 22 98 05/20/19 15:00 100 28 H 99 05/20/19 14:30 89 22 97 05/20/19 14:00 80 25 H 97 05/20/19 13:30 92 24 97 05/20/19 13:00 97 26 H 97 05/20/19 12:30 98 24 96 05/20/19 12:00 98.4 F 105 H 17 96 05/20/19 11:30 123 H 24 97 05/20/19 11:00 104 H 26 H 96 Intake and Output 05/20/19 05/21/19 05/21/19 22:59 06:59 14:59 Intake Total 662.121 816.601 162.445 Output Total 515 540 175 Balance 147.121 276.601 -12.555 Intake: IV 454.1 517 49 Amiodarone 360 mg In 75.1 25 Dextrose 5% in Water 200 ml @ 0.5 MG/MIN 16.667 mls/hr IV .Q12H ONE Rx#: [id number] Dextrose 5% in Water 1, 240 320 40 000 ml @ 40 mls/hr IV . Q24H [facility] with Sodium Bicarb (1 Meq/ml) 150 ml Rx#:[id number] Piperacillin-Tazobactam 3 100 .375 gm In Sodium Chloride 0.9% 100 ml @ 25 mls/hr IVPB Q8HR [facility] Rx# :[id number] Pressure Bag 39 72 9 metroNIDAZOLE-NS PMX 500 100 mg In Saline 1 100ml.bag @ 100 mls/hr IVPB Q8HR [facility] Rx#:[id number] Intake, IV Titration 208.021 299.601 113.445 Amount Amiodarone 300 mg In 227.083 75 Dextrose 5% in Water 250 ml @ 0.5 MG/MIN 25 mls/hr IV .Q10H [facility] Rx#: [id number] Norepinephrine 4 mg In 208.021 72.518 38.445 Sodium Chloride 0.9% 250 ml @ 0.05 MCG/KG/MIN 17. 964 mls/hr IV .Q14H9M [facility] Rx#:[id number] Output: Urine 515 540 175 Other: Voiding Method Indwelling Catheter Indwelling Catheter # Bowel Movements 1 Weight 104.2 kg ABP, PAP, CO, CI - Last 8 Hours Arterial Blood Pressure 105/44 Arterial Blood Pressure 105/41 Arterial Blood Pressure 107/42 Arterial Blood Pressure 93/36 Arterial Blood Pressure 108/42 GENERAL EXAM: Patient is alert and doesn't appear to be in acute distress HEENT: Normocephalic. Normal reaction of pupils, equal size, normal range of extraocular motion. No erythema or exudates in the throat. NECK: No masses, no nuchal rigidity. CHEST: No chest wall deformity. LUNGS: Diminished breath sounds at bases. Few bilateral rales HEART: S1 and S2 normal with no audible mumurs or gallops. Regular rhythm, femorals equal on both sides.. ABDOMEN: No hepatosplenomegaly, normal bowel sounds, no guarding or rigidity. SKIN: No rashes CENTRAL NERVOUS SYSTEM: No focal deficits. EXTREMITIES: No cyanosis, clubbing or edema. 1. Results 05/21/19 06:00 05/21/19 06:00 Coagulation 05/20/19 Range/Units 11:20 PT 12.5 H (9.0-12.0) sec APTT 37.3 H (22.0-30.0) sec CBC 05/21/19 Range/Units 06:00 WBC 15.7 H (3.8-10.6) k/uL RBC 3.28 L (3.80-5.40) m/uL Hgb 10.4 L (11.4-16.0) gm/dL Hct 30.6 L (34.0-46.0) % Plt Count 175 (150-450) k/uL Comprehensive Metabolic Panel 05/20/19 05/21/19 Range/Units 18:25 06:00 Sodium 135 L 138 (137-145) mmol/L Potassium 4.2 3.7 (3.5-5.1) mmol/L Chloride 105 108 H (98-107) mmol/L Carbon Dioxide 22 22 (22-30) mmol/L BUN 57 H 52 H (7-17) mg/dL Creatinine 2.74 H 2.21 H (0.52-1.04) mg/dL Glucose 140 H 147 H (74-99) mg/dL Calcium 8.3 L 7.5 L (8.4-10.2) mg/dL Current Medications Generic Name Dose Route Start Last Admin Trade Name Jose Danielq PRN Reason Stop Dose Admin Amiodarone HCl 200 mg 05/21/19 09:00 05/21/19 09:34 Cordarone PO 200 mg DAILY [facility] Administration Apixaban 5 mg 05/20/19 21:00 05/21/19 09:29 Eliquis PO 5 mg BID [facility] Administration Aspirin 81 mg 05/19/19 09:00 05/21/19 09:30 Aspirin PO 81 mg DAILY [facility] Administration Atorvastatin Calcium 10 mg 05/19/19 21:00 05/20/19 20:52 Lipitor PO 10 mg HS [facility] Administration Carbidopa/Levodopa 1 each 05/18/19 22:00 05/21/19 09:29 Sinemet 25-100 PO 1 each QID [facility] Administration Gabapentin 300 mg 05/20/19 09:00 05/21/19 09:30 Neurontin PO 300 mg DAILY [facility] Administration Norepinephrine Bitartrate 4 mg 254 mls @ 17.964 mls/hr 05/19/19 09:15 05/21/19 09:36 / Sodium Chloride IV 0 mcg/kg/min .Q14H9M [facility] 0 mls/hr Titration Protocol 0.05 MCG/KG/MIN Piperacillin Sod/Tazobactam 100 mls @ 25 mls/hr 05/19/19 21:00 05/21/19 09:35 Sod 3.375 gm/ Sodium Chloride IVPB 25 mls/hr Q12HR [facility] Administration Metronidazole 500 mg/ IV 100 mls @ 100 mls/hr 05/20/19 12:01 05/21/19 10:04 Solution IVPB 100 mls/hr Q8HR [facility] Administration Sodium Chloride 1,000 mls @ 40 mls/hr 05/21/19 09:00 05/21/19 10:05 Saline 0.9% IV 40 mls/hr .Q24H [facility] Administration Insulin Aspart 0 unit 05/18/19 20:30 05/21/19 09:59 Novolog SQ 3 unit Q4HR [facility] Administration Protocol Levothyroxine Sodium 137 mcg 05/19/19 06:30 05/21/19 09:30 Synthroid PO 137 mcg DAILY@0630 [facility] Administration Metoprolol Tartrate 12.5 mg 05/21/19 09:00 Lopressor PO BID [facility] Naloxone HCl 0.2 mg 05/18/19 17:18 Narcan IV Q2M PRN Opioid Reversal Ondansetron HCl 4 mg 05/18/19 20:28 Zofran IVP Q6HR PRN Nausea And Vomiting Pantoprazole Sodium 40 mg 05/20/19 09:00 05/21/19 09:28 Protonix PO 40 mg DAILY [facility] Administration Intake and Output 05/20/19 05/21/19 05/21/19 22:59 06:59 14:59 Intake Total 662.121 816.601 162.445 Output Total 515 540 175 Balance 147.121 276.601 -12.555 Intake: IV 454.1 517 49 Amiodarone 360 mg In 75.1 25 Dextrose 5% in Water 200 ml @ 0.5 MG/MIN 16.667 mls/hr IV .Q12H [facility] Rx#: [id number] Dextrose 5% in Water 1, 240 320 40 000 ml @ 40 mls/hr IV . Q24H [facility] with Sodium Bicarb (1 Meq/ml) 150 ml Rx#:[id number] Piperacillin-Tazobactam 3 100 .375 gm In Sodium Chloride 0.9% 100 ml @ 25 mls/hr IVPB Q8HR [facility] Rx# :[id number] Pressure Bag 39 72 9 metroNIDAZOLE-NS PMX 500 100 mg In Saline 1 100ml.bag @ 100 mls/hr IVPB Q8HR [facility] Rx#:[id number] Intake, IV Titration 208.021 299.601 113.445 Amount Amiodarone 300 mg In 227.083 75 Dextrose 5% in Water 250 ml @ 0.5 MG/MIN 25 mls/hr IV .Q10H [facility] Rx#: [id number] Norepinephrine 4 mg In 208.021 72.518 38.445 Sodium Chloride 0.9% 250 ml @ 0.05 MCG/KG/MIN 17. 964 mls/hr IV .Q14H9M [facility] Rx#:[id number] Output: Urine 515 540 175 Other: Voiding Method Indwelling Catheter Indwelling Catheter # Bowel Movements 1 Weight 104.2 kg 05/21/19 06:00 05/21/19 06:00 EKG Interpretations (text) Initial EKG didn't look like atrial tachycardia with 2 to one conduction. She seemed to be having episodes of tachycardia/flutter Assessment and Plan (1) Atrial tachycardia Current Visit: Yes Status: Acute Code(s): I47.1 - SUPRAVENTRICULAR TACHYCARDIA SNOMED Code(s): 552676716 (2) ARF (acute renal failure) Current Visit: Yes Status: Acute Code(s): N17.9 - ACUTE KIDNEY FAILURE, UNSPECIFIED SNOMED Code(s): 01643110 (3) Colitis Current Visit: Yes Status: Acute Code(s): K52.9 - NONINFECTIVE GASTROENTERITIS AND COLITIS, UNSPECIFIED SNOMED Code(s): 50317219 (4) Sepsis Current Visit: Yes Status: Acute Code(s): A41.9 - SEPSIS, UNSPECIFIED O RGANISM SNOMED Code(s): 48067566 (5) Type 2 diabetes mellitus with hyperglycemia Current Visit: Yes Status: Acute Code(s): E11.65 - TYPE 2 DIABETES MELLITUS WITH HYPERGLYCEMIA SNOMED Code(s): 740857546749351 Plan: Continue current medical therapy. Her renal function seemed to be improving. Mental mental status is also improving. I gradient seen on the echocardiogram was also seen previously, but DON done in December showed normal prosthetic function. Continue to monitor her. Continue current medical therapy
--- NOTE | 2019-05-21 11:42 | P.PN ---
Subjective Progress Note Date: 05/21/19 Patient is 78-year-old female with a PMH of coronary artery disease status post CABG, aortic valve replacement, paroxysmal atrial fibrillation (on Eliquis), diastolic congestive heart failure, diabetes mellitus, hypertension, hyperlipidemia, and Parkinson's disease was brought into the ED due to multiple episodes of nonbloody diarrhea. The patient was noted to be in severe sepsis in the emergency room, with CT abdomen showing findings consistent with ischemic/inflammatory colitis. She was given fluid resuscitation along with IV antibiotics and was admitted to the medical ICU. She was also noted to have acute kidney injury, and severe lactic acidosis at 9 which subsequently resolved. The patient had persistent hypotension following admission to the ICU for which she was started on a Levophed infusion yesterday. Overnight on 05/19, the patient was noted to have altered mentation with concerns for possible CVA. A code stroke was activated. Neurology evaluated the patient and recommended that she likely has altered mentation due to a metabolic encephalopathy secondary to sepsis and acute kidney injury. Carotid duplex along with a CT brain were obtained which were unremarkable. Nephrology was also consulted and recommended that the patient's NICA was likely due to severe dehydration from diarrhea. The patient's Cr improved from 2.74 to 2.21 on 05/21. She was seen and examined in the MICU at the bedside. The patient was more alert today. She was in good spirits and denied active complaints. She denied abdominal pain, nausea, vomiting, fever, or chills. She notes her last BM was overnight and that she hadn't had one this morning. Objective - Vital Signs Vital signs: Vital Signs Temp 99.6 F 05/21/19 08:00 Pulse 88 05/21/19 10:00 Resp 22 05/21/19 10:00 BP 106/47 05/21/19 07:00 Pulse Ox 100 05/21/19 10:00 Intake & Output 05/20/19 05/21/19 05/21/19 18:59 06:59 18:59 Intake Total 2952.685 9922.601 275.785 Output Total 1135 805 440 Balance 69.621 252.601 -164.215 Weight 104.2 kg Intake: IV 996.6 758 162.34 Amiodarone 360 mg In 133.6 50 33.34 Dextrose 5% in Water 200 ml @ 0.5 MG/MIN 16.667 mls/hr IV .Q12H [facility] Rx#: [id number] Dextrose 5% in Water 1, 660 400 120 000 ml @ 40 mls/hr IV . Q24H [facility] with Sodium Bicarb (1 Meq/ml) 150 ml Rx#:[id number] Piperacillin-Tazobactam 3 100 100 .375 gm In Sodium Chloride 0.9% 100 ml @ 25 mls/hr IVPB Q8HR [facility] Rx# :[id number] Pressure Bag 3 108 9 metroNIDAZOLE-NS PMX 500 100 100 mg In Saline 1 100ml.bag @ 100 mls/hr IVPB Q8HR [facility] Rx#:[id number] Intake, IV Titration 208.021 299.601 113.445 Amount Amiodarone 300 mg In 227.083 75 Dextrose 5% in Water 250 ml @ 0.5 MG/MIN 25 mls/hr IV .Q10H [facility] Rx#: [id number] Norepinephrine 4 mg In 208.021 72.518 38.445 Sodium Chloride 0.9% 250 ml @ 0.05 MCG/KG/MIN 17. 964 mls/hr IV .Q14H9M [facility] Rx#:[id number] Output: Urine 1135 805 440 Other: Voiding Method Indwelling Catheter Indwelling Catheter # Bowel Movements 1 ABP, PAP, CO, CI - Last Documented Arterial Blood Pressure 99/39 - Exam General: Elderly female, in no acute distress, appears stated age, obese HEENT: NC/AT, anicteric sclerae, moist conjunctiva, no lid-lag, PERRLA Cardiovascular: Irregularly irregular, grade 3 systolic murmur appreciated, no rubs, or gallops Lungs: Clear to auscultation, normal respiratory effort, no accessory muscle use Abdominal: Soft, non-tender, non-distended, no guarding, rebound, or rigidity Skin: Warm, dry Extremities: Some anasarca, no contractures Psychiatric: Alert, awake, oriented to person and place Neuro: CN II-XII grossly intact, Strength 4/5 in all 4 extremities equal, Speech intact, Sensation to light touch grossly intact throughout - Labs CBC & Chem 7: 05/21/19 06:00 05/21/19 06:00 Labs: Abnormal Lab Results - Last 24 Hours (Table) 05/20/19 05/20/19 05/20/19 Range/Units 11:14 11:20 11:38 WBC (3.8-10.6) k/uL RBC (3.80-5.40) m/uL Hgb (11.4-16.0) gm/dL Hct (34.0-46.0) % PT 12.5 H (9.0-12.0) sec INR 1.2 H (<1.2) APTT 37.3 H (22.0-30.0) sec ABG pH 7.29 L (7.35-7.45) ABG pCO2 48 H (35-45) mmHg ABG O2 Saturation 98.5 H (94-97) % Sodium (137-145) mmol/L Chloride (98-107) mmol/L BUN (7-17) mg/dL Creatinine (0.52-1.04) mg/dL Glucose (74-99) mg/dL POC Glucose (mg/dL) 140 H (75-99) mg/dL Calcium (8.4-10.2) mg/dL 05/20/19 05/20/19 05/20/19 Range/Units 16:26 18:25 20:06 WBC (3.8-10.6) k/uL RBC (3.80-5.40) m/uL Hgb (11.4-16.0) gm/dL Hct (34.0-46.0) % PT (9.0-12.0) sec INR (<1.2) APTT (22.0-30.0) sec ABG pH (7.35-7.45) ABG pCO2 (35-45) mmHg ABG O2 Saturation (94-97) % Sodium 135 L (137-145) mmol/L Chloride (98-107) mmol/L BUN 57 H (7-17) mg/dL Creatinine 2.74 H (0.52-1.04) mg/dL Glucose 140 H (74-99) mg/dL POC Glucose (mg/dL) 134 H 142 H (75-99) mg/dL Calcium 8.3 L (8.4-10.2) mg/dL 05/21/19 05/21/19 05/21/19 Range/Units 00:06 04:40 06:00 WBC 15.7 H (3.8-10.6) k/uL RBC 3.28 L (3.80-5.40) m/uL Hgb 10.4 L (11.4-16.0) gm/dL Hct 30.6 L (34.0-46.0) % PT (9.0-12.0) sec INR (<1.2) APTT (22.0-30.0) sec ABG pH (7.35-7.45) ABG pCO2 (35-45) mmHg ABG O2 Saturation (94-97) % Sodium (137-145) mmol/L Chloride (98-107) mmol/L BUN (7-17) mg/dL Creatinine (0.52-1.04) mg/dL Glucose (74-99) mg/dL POC Glucose (mg/dL) 165 H 162 H (75-99) mg/dL Calcium (8.4-10.2) mg/dL 05/21/19 05/21/19 05/21/19 Range/Units 06:00 08:41 09:41 WBC (3.8-10.6) k/uL RBC (3.80-5.40) m/uL Hgb (11.4-16.0) gm/dL Hct (34.0-46.0) % PT (9.0-12.0) sec INR (<1.2) APTT (22.0-30.0) sec ABG pH (7.35-7.45) ABG pCO2 (35-45) mmHg ABG O2 Saturation (94-97) % Sodium (137-145) mmol/L Chloride 108 H (98-107) mmol/L BUN 52 H (7-17) mg/dL Creatinine 2.21 H (0.52-1.04) mg/dL Glucose 147 H (74-99) mg/dL POC Glucose (mg/dL) 168 H 238 H (75-99) mg/dL Calcium 7.5 L (8.4-10.2) mg/dL Microbiology - Last 24 Hours (Table) 05/18/19 17:53 Blood Culture - Preliminary Blood No Growth after 48 hours Assessment and Plan Plan: Septic shock, improved, likely secondary to infectious colitis; less likely ischemic colitis (lack of pain or hematochezia) -C/w MICU level of care at this time -Levophed infusion currently being held -Continue with Zosyn and Flagyl for now -F/u blood and stool cultures -Leukocytosis stable at 15 -C/w IVFs AMS, improved, likely due to metabolic encephalopathy in setting of sepsis and NICA -C/w treatment of sepsis -Carotid duplex, CT head and Neurology consultation reviewed -Neurochecks -Monitor mental status NICA, improved -Nephrology recs appreciated. Bicarb infusion on hold. -C/w IVFs -S/p multiple lasix doses Afib w/ RVR -C/w Eliquis and Amiodarone PO -S/p swallowing eval -- cleared -Cardiology recs appreciated Hypothyroidism -C/w home dose Levothyroxine DVT prophylaxis -Heparin infusion Discussed with: Patient Anticipated discharge date: 4-[address]: [facility] A total of 35 minutes was spent on the care of this complex patient more than 50% of the time was spent in counseling and care coordination.
[2019-05-21 11:56] LABS: Glucose,Whole Blood 215 mg/dL (75-99)
[2019-05-21] MEDS: METOPROLOL TARTRATE 12.5 MG TAB PO SCH ×2 (12:10→20:16)
--- NOTE | 2019-05-21 12:56 | P.PN ---
Subjective Progress Note Date: 05/21/19 This is a pleasant 78-year-old female patient with known history of coronary artery disease, previous bypass surgery, previous aortic valve replacement, along with history of chronic atrial fibrillation and diabetes mellitus and hypothyroidism. The patient has been followed up by Dr. Berry on outpatient basis. The patient acutely became ill this morning. She woke up and she developed nausea and emesis and watery diarrhea which is going on for now. The patient is passing significant amount of liquidy bowel movements. No melanotic. No bright red blood per rectum. No hematemesis. No abdominal pain or distention. No channel history. No ingestion of any contaminated material or food products. No sick contacts. She lives with her daughter and her daughter is healthy and she did not have any gastrointestinal symptoms. She's been eating home food Throughout the past month. No recent antibiotic intake. Reports history of inflammatory bowel disease or infectious colitis. No history of any inflammatory bowel disease. In the ED, the patient a white cell count of 21. The patient and acute kidney injury with a creatinine of 2.1. Lactic acid level was at 9. Potassium level was at 6.0. The patient was found to be borderline hypotensive with a systolic blood pressure in the mid 80s. The patient was given a total of 3 L of IV fluids and the fourth is infusing for now. The patient is also on a maintenance 130 mL an hour normal saline. Resume amount of urine output. She underwent a straight cathetered UA essentially negative with +1 protein. Stool for C. diff is negative. Blood sugar was elevated at 3 on 35. Nevertheless the acetone was negative. She is awake and alert. She is following commands and answering questions. She is currently on normal saline at the rate of 1 30 mL an hour. No fever. No chills. No night sweats. No other complaints otherwise for now. On today's evaluation of 05/19/2019 I'm seeing this patient for a follow-up. Clinically the patient is having liquidy diarrhea. Hemodynamically she is still having the low blood pressure since earlier this morning. The patient was given a total of 6l fluids and the patient was receiving normal saline infusion as maintenance at the rate of 130 mL an hour. The patient was furthermore started on low dose norepinephrine infusion today and this was initiated to maintain a mean artery pressure above 65. The patient is having adequate urine output. Lactic acid levels are improving. White cell count is dropped. Note that the lactic acid level is down to 2.6. The creatinine is at 2.4 for now. The follow-up white cell count is down to 17 from a baseline of 21.9. Stool for C. diff was negative. Blood cultures still pending. The stool culture also pending. CAT scan of the abdomen and pelvis was done yesterday showed moderate circumferential mural thickening of the entire length of the distal half of the transverse colon and descending colon and the sigmoid colon consistent with inflammatory versus infectious colitis. No pneumoperitoneum. The patient is currently on IV Zosyn. No nausea. No vomiting. No abdominal pain. Altered mentation. No fever. No chills. The patient is requesting some oral intake. On 05/20/2019 patient seen in follow-up in the intensive care unit. Last night change in mentation has been noted, patient became more lethargic, confused, but no unilateral motor weakness was noted, her speech was garbled, and there was concern about acute stroke, "stroke code" was called, NIH score was 16 initially, brain CT showed no acute intracranial process, did show cerebral atrophy, and sinusitis. NIH score did improve on subsequent reevaluation and was down to 14, however patient remains lethargic, and a blood gas was obtained showing pO2 of 56, pCO2 46, and pH of 7.23, consistent with mixed respiratory and metabolic acidosis and acute hypoxemic respiratory failure. Chest x-ray this morning showed a small bilateral pleural effusions, and cephalization, changes to sit with fluid volume overload and patient was given a dose of IV Lasix 60 mg 1. Patient remains on a small dose of Levofed at 4 mics per minute, patient did receive significant amount of fluid and initial fluid resuscitation, over 6 L in the fluid boluses for hypotension, acute kidney injury related to nausea, vomiting, diarrhea, and significant intravascular volume depletion. Patient did have 2 more liquid stools last night, C. diff was negative, stool cultures are pending at this time, blood culture showed no growth, she has had low-grade fevers. Remains on the bicarb infusion, and today's blood work shows serum bicarb slightly improved up to 21, serum sodium was 134, potassium is 5.0, quite is 105, BUN is 59, and creatinine is 3.08, slight worsening renal profile is noted. White count is improved, down to 15.6. Lung sounds are diminished, patient is lethargic, but is opening eyes, she is inattentive, she knows she is in the hospital, but was falling asleep or she could tell me the month of the year. He was placed on BiPAP support with pressures of 12 and 6, and FiO2 of 100%. Her family was updated on her condition. Patient remains critically ill. He does have a history of bioprosthetic aortic valve and the echocardiogram showed aortic regurgitation, and abnormally functioning bioprosthetic aortic valve, EF of 45-50%, and severe pulmonary hypertension with PA systolic of 64 mmHg. Remains on Zosyn for antibiotic coverage, there has been no nausea or vomiting, no abdominal pain, her abdomen is soft, she denies any abdominal tenderness. On 05/21/2019, the patient has improved compared to yesterday. She is nothing any significant respiratory distress and the patient was taken off the BiPAP. She is currently on 3 L oxygen by nasal cannula. She is awake and alert and she is following commands and answering questions. She is able to tolerate some soft diet. Note that the patient had some issues with mental status which improved on today's evaluation. She also had issues with acute pulmonary edema and IV fluids have been cut down and the patient was started on IV Lasix. Subsequently she producing adequate amount of urine output and the patient is breathing normally without having any labored breathing. She is running on low- dose norepinephrine infusion for now. The cardiac rhythm is atrial fibrillation and the patient is having frequent PACs and PVCs. Electrolytes are within normal limits. The potassium level is at 3.7. Magnesium level is at 1.7. Renal function is also improving and the BUN is down to 52 with a creatinine of 2.2. White cell count is down to 15.7. No further bouts of diarrhea and the patient's white cell count is down to 15.7 and the patient is currently on a combination of Zosyn and Flagyl. The patient has some increased edema in lower extremities. The patient is quite weak and her weakness has essentially of old her past 48 hours. No nausea. No vomiting. No emesis. No abdominal distention. No chest pain. No significant shortness of breath. Family is at the bedside. Objective - Vital Signs Vital signs: Vital Signs Temp 98.5 F 05/21/19 12:00 Pulse 93 05/21/19 12:00 Resp 16 05/21/19 12:00 BP 106/47 05/21/19 07:00 Pulse Ox 100 05/21/19 12:00 Intake & Output 05/20/19 05/21/19 05/21/19 18:59 06:59 18:59 Intake Total 0841.323 6618.601 545.785 Output Total 1135 805 675 Balance 69.621 252.601 -129.215 Weight 104.2 kg Intake: IV 996.6 758 432.34 Amiodarone 360 mg In 133.6 50 33.34 Dextrose 5% in Water 200 ml @ 0.5 MG/MIN 16.667 mls/hr IV .Q12H [facility] Rx#: [id number] Dextrose 5% in Water 1, 660 400 120 000 ml @ 40 mls/hr IV . Q24H [facility] with Sodium Bicarb (1 Meq/ml) 150 ml Rx#:[id number] Piperacillin-Tazobactam 3 50 .375 gm In Sodium Chloride 0.9% 100 ml @ 25 mls/hr IVPB Q12HR [facility] Rx #:[id number] Piperacillin-Tazobactam 3 100 100 .375 gm In Sodium Chloride 0.9% 100 ml @ 25 mls/hr IVPB Q8HR [facility] Rx# :[id number] Pressure Bag 3 108 9 Sodium Chloride 0.9% 1, 120 000 ml @ 40 mls/hr IV . Q24H [facility] Rx#:[id number] metroNIDAZOLE-NS PMX 500 100 100 100 mg In Saline 1 100ml.bag @ 100 mls/hr IVPB Q8HR [facility] Rx#:[id number] Intake, IV Titration 208.021 299.601 113.445 Amount Amiodarone 300 mg In 227.083 75 Dextrose 5% in Water 250 ml @ 0.5 MG/MIN 25 mls/hr IV .Q10H [facility] Rx#: [id number] Norepinephrine 4 mg In 208.021 72.518 38.445 Sodium Chloride 0.9% 250 ml @ 0.05 MCG/KG/MIN 17. 964 mls/hr IV .Q14H9M [facility] Rx#:[id number] Output: Urine 1135 805 675 Other: Voiding Method Indwelling Catheter Indwelling Catheter # Bowel Movements 1 1 ABP, PAP, CO, CI - Last Documented Arterial Blood Pressure 115/45 - Exam The patient appeared well nourished and normally developed. Vital signs as documented. The patient is currently off liters of oxygen by nasal cannula. Her breathing is nonlabored. Head exam is unremarkable. No scleral icterus or corneal arcus noted. Neck is without jugular venous distension, thyromegaly, or carotid bruits. Carotid upstrokes are brisk bilaterally. Lungs are clear to auscultation and percussion. Cardiac exam reveals the PMI to be normally sized and situated. Rhythm is regular. First and second heart sounds normal. No murmurs, rubs or gallops. The patient had a thoracotomy scar over the anterior chest area. There is a faint grade 3/6 systolic ejection murmur heard over the apex. There is also radiating to the neck area. Abdominal exam reveals normal bowel sounds, no masses, no organomegaly and no aortic enlargement. Extremities are edematous and both femoral and pedal pulses are normal.Examination of the skin revealed no evidence of significant rashes, suspicious appearing nevi or other concerning lesions. Neurologically the patient is awake and alert and is no focal neurological deficits. - Labs CBC & Chem 7: 05/21/19 06:00 05/21/19 06:00 Labs: Abnormal Lab Results - Last 24 Hours (Table) 05/20/19 05/20/19 05/20/19 Range/Units 16:26 18:25 20:06 WBC (3.8-10.6) k/uL RBC (3.80-5.40) m/uL Hgb (11.4-16.0) gm/dL Hct (34.0-46.0) % Sodium 135 L (137-145) mmol/L Chloride (98-107) mmol/L BUN 57 H (7-17) mg/dL Creatinine 2.74 H (0.52-1.04) mg/dL Glucose 140 H (74-99) mg/dL POC Glucose (mg/dL) 134 H 142 H (75-99) mg/dL Calcium 8.3 L (8.4-10.2) mg/dL 05/21/19 05/21/19 05/21/19 Range/Units 00:06 04:40 06:00 WBC 15.7 H (3.8-10.6) k/uL RBC 3.28 L (3.80-5.40) m/uL Hgb 10.4 L (11.4-16.0) gm/dL Hct 30.6 L (34.0-46.0) % Sodium (137-145) mmol/L Chloride (98-107) mmol/L BUN (7-17) mg/dL Creatinine (0.52-1.04) mg/dL Glucose (74-99) mg/dL POC Glucose (mg/dL) 165 H 162 H (75-99) mg/dL Calcium (8.4-10.2) mg/dL 05/21/19 05/21/19 05/21/19 Range/Units 06:00 08:41 09:41 WBC (3.8-10.6) k/uL RBC (3.80-5.40) m/uL Hgb (11.4-16.0) gm/dL Hct (34.0-46.0) % Sodium (137-145) mmol/L Chloride 108 H (98-107) mmol/L BUN 52 H (7-17) mg/dL Creatinine 2.21 H (0.52-1.04) mg/dL Glucose 147 H (74-99) mg/dL POC Glucose (mg/dL) 168 H 238 H (75-99) mg/dL Calcium 7.5 L (8.4-10.2) mg/dL 05/21/19 Range/Units 11:44 WBC (3.8-10.6) k/uL RBC (3.80-5.40) m/uL Hgb (11.4-16.0) gm/dL Hct (34.0-46.0) % Sodium (137-145) mmol/L Chloride (98-107) mmol/L BUN (7-17) mg/dL Creatinine (0.52-1.04) mg/dL Glucose (74-99) mg/dL POC Glucose (mg/dL) 215 H (75-99) mg/dL Calcium (8.4-10.2) mg/dL Microbiology - Last 24 Hours (Table) 05/19/19 00:01 Stool Culture - Preliminary Stool 05/18/19 17:53 Blood Culture - Preliminary Blood No Growth after 48 hours Assessment and Plan Plan: 1 acute gastroenteritis, exact cause is not clear. Rule out viral gastroenteritis. Rule out bacterial causes. Doubt any inflammatory bowel disease. Doubt ischemic colitis. Doubt C. diff colitis. The patient continues to have liquidy loose diarrhea and the CAT scan of the abdomen and pelvis showed mural thickening and inflammatory changes involving the transverse and descending and sigmoid colon. Stool for C. diff has been negative. The stool culture is negative. The blood cultures negative. The white cell count is improving. The patient is still on a combination of Zosyn and Flagyl. Diarrhea subsided. 2 acute lactic acidosis, improving 3 acute kidney injury secondary to above, improving 4 acute leukocytosis secondary to above, improving 5 hypotension secondary to above, received a total of 6 L of IV fluids. The patient is also on pressors for now. The IV fluids have been Down. The patient was switched a bicarb infusion and the serum bicarb is up to 22. She is requiring some low dose norepinephrine infusion for hemodynamic support. 6 coronary artery disease with previous bypass surgery and recent cardiac catheterization from February 2019 showing subtotal occluded LAD with competitive flow from SVG and mild RCA disease with a SVG to RCA and LAD being both patent 7 aortic valve replacement 8 secondary pulmonary hypertension 9 chronic atrial fibrillation maintained on long-term anticoagulation with Eliquis 10 diabetes mellitus 11 hyperlipidemia 13 hypothyroidism 14 Parkinson's disease Plan Continue fluid resuscitation and utilized normal saline today to 40 mL an hour and discontinue the bicarb drip. Wean off norepinephrine infusion. Restart metoprolol 12.5 mg by mouth twice a day. Continue oral amiodarone. Continue Eliquis 5 mg by mouth twice a day. Advance diet as tolerated. Keep her on soft for now. Continue Zosyn. Continue Flagyl. We'll consult physical therapy. There is no need for diuretics this point. Nephritis on the case. We'll continue to follow.
--- NOTE | 2019-05-21 14:12 | PCN ---
PROCEDURE NOTE DATE OF SERVICE: 05/20/2019 PREOPERATIVE DIAGNOSIS: Septic shock. POSTOPERATIVE DIAGNOSIS: Septic shock. PROCEDURE: Right radial arterial line placement. ARTERIAL LINE PLACEMENT: Indications: Hemodynamic monitoring. A time-out was completed verifying correct patient, procedure, site, positioning, and implant(s) or special equipment if applicable. Jeet's test was performed to ensure adequate perfusion. The patient's right wrist was prepped and draped in sterile fashion. 1% Lidocaine was used to anesthetize the area. An 18G Arrow arterial line was introduced into the right radial artery. The catheter was threaded over the guide wire and the needle was removed with appropriate pulsatile blood return. Blood loss was minimal. The catheter was then sutured in place to the skin and a sterile dressing applied. Perfusion to the extremity distal to the point of catheter insertion was checked and found to be adequate. The patient tolerated the procedure well and there were no immediate complications. Good waveform was noted. Line was flushed and sutured in place. Sterile dressing was applied. MMODL / IJN: [id number] /
[2019-05-21] MEDS ORDERED: FUROSEMIDE 10 MG/ML 4 ML VIAL IV STA (15:50)
--- NOTE | 2019-05-21 16:12 | PN ---
PROGRESS NOTE Patient is seen for followup for acute kidney injury. This morning she is much more awake and communicating. She is not confused. Patient is off of BiPAP. She was diuresed yesterday. Bicarb drip was decreased to 50 mL/hour yesterday. Patient has had good urine output. Her renal function has improved as well with creatinine down to 2.2 mg/dL from 3.0 two days ago. So far cultures are negative. Patient had been having diarrhea prior to admission. Her diarrhea seems to have improved. C difficile toxin has been negative. On examination this morning, patient is comfortable, awake. She is not in any acute distress. Blood pressure was 106/47, heart rate 93 per minute. Patient is afebrile. EXAMINATION OF THE HEART: S1 and S2. EXAMINATION OF LUNGS: Decreased breath sounds at bases. ABDOMEN: Soft, non-tender, obese. Examination of lower extremities shows no significant edema. [employer] exam is grossly intact. Labs show hemoglobin 10.4, sodium 138, potassium 3.7, chloride 108, BUN 52, serum creatinine 2.21, magnesium 1.7. ASSESSMENT: 1. Acute kidney injury secondary to hypotension, hypoperfusion, nonoliguric, currently improving. Discontinue IV fluids. 2. Mild metabolic acidosis, status post IV bicarb. Etiology was diarrhea and renal failure, currently resolved. 3. Encephalopathy, now improved. 4. Hyperkalemia associated with acute kidney injury, improved with improving renal function and improving urine output. 5. Lactic acidosis, now resolved. 6. History of bioprosthetic aortic valve replacement. 7. Pulmonary hypertension. 8. Acute gastroenteritis, now improved. 9. Lactic acidosis secondary to hypotension, hypoperfusion, now improved. PLAN: Repeat IV Lasix x1. Continue off of IV fluids. Repeat labs in a.m. Avoid any nephrotoxic medications. MMODL / IJN: [id number] /
[2019-05-21 17:04] LABS: Glucose,Whole Blood 251 mg/dL (75-99)
[2019-05-21] MEDS: ATORVASTATIN 10 MG TAB PO SCH (20:16)
[2019-05-21 20:23] LABS: Glucose,Whole Blood 256 mg/dL (75-99)
[2019-05-21] MEDS ORDERED: INSULIN DETEMIR (LEVEMIR) 100 UNIT/ML SYR SQ SCH (21:00)
[2019-05-21] MEDS: MAGNESIUM SULFATE-D5W PMX 1 GM in DEXTROSE/WATER 1 100ML.BAG IVPB SCH (22:44)
[2019-05-21] MEDS: POTASSIUM CHLORIDE 10 MEQ in WATER FOR INJECTION 1 100ML.BAG IVPB SCH (22:44)
[2019-05-22] MEDS: POTASSIUM CHLORIDE 10 MEQ in WATER FOR INJECTION 1 100ML.BAG IVPB SCH ×3 (00:04→02:06)
[2019-05-22] MEDS: MAGNESIUM SULFATE-D5W PMX 1 GM in DEXTROSE/WATER 1 100ML.BAG IVPB SCH (00:04)
[2019-05-22] MEDS: metroNIDAZOLE-NS PMX 500 MG in SALINE 1 100ML.BAG IVPB SCH ×2 (00:13→09:14)
[2019-05-22 05:31] LABS: HCT 26.9 % (34.0-46.0); HGB 9.3 gm/dL (11.4-16.0); MCH 32.2 pg (25.0-35.0); MCHC 34.5 g/dL (31.0-37.0); MCV 93.2 fL (80.0-100.0); Mean Platelet Volume 7.4; Platelet Count 155 k/uL (150-450); RBC 2.89 m/uL (3.80-5.40); RDW 12.7 % (11.5-15.5); WBC 10.1 k/uL (3.8-10.6)
[2019-05-22 05:49] LABS: Calcium 8.4 mg/dL (8.4-10.2); Potassium 4.6 mmol/L (3.5-5.1)
[2019-05-22] MEDS: LEVOTHYROXINE 137 MCG TAB PO SCH (06:22)
[2019-05-22] MEDS: ACETAMINOPHEN TAB 325 MG TAB PO PRN (06:22)
--- NOTE | 2019-05-22 06:46 | XR ---
EXAMINATION TYPE: XR chest 1V portable DATE OF EXAM: 05/22/2019 HISTORY: SOB. REFERENCE: Previous study dated 05/20/2019. FINDINGS: There has been a midline sternotomy. Heart size upper limits of normal. There is bibasilar airspace disease which has worsened, greater on the left than the right. There are small, bilateral e ffusions. IMPRESSION: WORSENING BIBASILAR AIRSPACE DISEASE WITH SMALL, CONCOMITANT EFFUSIONS.
[2019-05-22 06:58] LABS: Glucose,Whole Blood 182 mg/dL (75-99)
[2019-05-22] MEDS: INSULIN ASPART (NovoLOG) 100 UNIT/ML VIAL SQ SCH ×4 (07:17→21:05)
--- NOTE | 2019-05-22 08:48 | P.PN ---
Subjective Progress Note Date: 05/22/19 Patient is 78-year-old female with a PMH of coronary artery disease status post CABG, aortic valve replacement, paroxysmal atrial fibrillation (on Eliquis), diastolic congestive heart failure, diabetes mellitus, hypertension, hyperlipidemia, and Parkinson's disease was brought into the ED due to multiple episodes of nonbloody diarrhea. The patient was noted to be in severe sepsis in the emergency room, with CT abdomen showing findings consistent with ischemic/inflammatory colitis. She was given fluid resuscitation along with IV antibiotics and was admitted to the medical ICU. She was also noted to have acute kidney injury, and severe lactic acidosis at 9 which subsequently resolved. The patient had persistent hypotension following admission to the ICU for which she was started on a Levophed infusion yesterday. Overnight on 05/19, the patient was noted to have altered mentation with concerns for possible CVA. A code stroke was activated. Neurology evaluated the patient and recommended that she likely has altered mentation due to a metabolic encephalopathy secondary to sepsis and acute kidney injury. Carotid duplex along with a CT brain were obtained which were unremarkable. Nephrology was also consulted and recommended that the patient's NICA was likely due to severe dehydration from diarrhea. The patient's Cr improved to 1.72 on 05/22. She was seen and examined in the MICU at the bedside on 05/22. The patient was in good spirits and denied active complaints. She continues to be more awake, alert, and responsive. She denied abdominal pain, nausea, vomiting, fever, or chills. The patient's BMs have decreased significantly over the past 24 hours. Objective - Vital Signs Vital signs: Vital Signs Temp 98.1 F 05/22/19 04:00 Pulse 89 05/22/19 07:00 Resp 15 05/22/19 07:00 BP 104/49 05/22/19 07:00 Pulse Ox 98 05/22/19 07:00 Intake & Output 05/21/19 05/22/19 05/22/19 18:59 06:59 18:59 Intake Total 7285.155 2872 40 Output Total 1145 1070 100 Balance 255.785 210 -60 Weight 105 kg Intake: IV 837.34 1280 40 Amiodarone 360 mg In 33.34 Dextrose 5% in Water 200 ml @ 0.5 MG/MIN 16.667 mls/hr IV .Q12H [facility] Rx#: [id number] Dextrose 5% in Water 1, 120 000 ml @ 40 mls/hr IV . Q24H [facility] with Sodium Bicarb (1 Meq/ml) 150 ml Rx#:[id number] Magnesium Sulfate-D5w Pmx 200 1 gm In Dextrose/Water 1 100ml.bag @ 100 mls/hr IVPB Q1H [facility] Rx#: [id number] Piperacillin-Tazobactam 3 75 100 .375 gm In Sodium Chloride 0.9% 100 ml @ 25 mls/hr IVPB Q12HR [facility] Rx #:[id number] Potassium Chloride 10 meq 400 In Water For Injection 1 100ml.bag @ 100 mls/hr IVPB Q1HR [facility] Rx#: [id number] Pressure Bag 9 Sodium Chloride 0.9% 1, 300 480 40 000 ml @ 40 mls/hr IV . Q24H [facility] Rx#:[id number] metroNIDAZOLE-NS PMX 500 300 100 mg In Saline 1 100ml.bag @ 100 mls/hr IVPB Q8HR [facility] Rx#:[id number] Intake, IV Titration 113.445 Amount Amiodarone 300 mg In 75 Dextrose 5% in Water 250 ml @ 0.5 MG/MIN 25 mls/hr IV .Q10H [facility] Rx#: [id number] Norepinephrine 4 mg In 38.445 Sodium Chloride 0.9% 250 ml @ 0.05 MCG/KG/MIN 17. 964 mls/hr IV .Q14H9M [facility] Rx#:[id number] Oral 450 Output: Urine 1145 1070 100 Other: Voiding Method Indwelling Catheter Indwelling Catheter # Bowel Movements 1 ABP, PAP, CO, CI - Last Documented Arterial Blood Pressure 118/48 - Labs CBC & Chem 7: 05/22/19 05:20 05/22/19 05:20 Labs: Abnormal Lab Results - Last 24 Hours (Table) 05/21/19 05/21/19 05/21/19 Range/Units 08:41 09:41 11:44 RBC (3.80-5.40) m/uL Hgb (11.4-16.0) gm/dL Hct (34.0-46.0) % Sodium (137-145) mmol/L BUN (7-17) mg/dL Creatinine (0.52-1.04) mg/dL Glucose (74-99) mg/dL POC Glucose (mg/dL) 168 H 238 H 215 H (75-99) mg/dL 05/21/19 05/21/19 05/22/19 Range/Units 16:53 20:11 05:20 RBC 2.89 L (3.80-5.40) m/uL Hgb 9.3 L (11.4-16.0) gm/dL Hct 26.9 L (34.0-46.0) % Sodium (137-145) mmol/L BUN (7-17) mg/dL Creatinine (0.52-1.04) mg/dL Glucose (74-99) mg/dL POC Glucose (mg/dL) 251 H 256 H (75-99) mg/dL 05/22/19 05/22/19 Range/Units 05:20 06:46 RBC (3.80-5.40) m/uL Hgb (11.4-16.0) gm/dL Hct (34.0-46.0) % Sodium 135 L (137-145) mmol/L BUN 46 H (7-17) mg/dL Creatinine 1.72 H (0.52-1.04) mg/dL Glucose 160 H (74-99) mg/dL POC Glucose (mg/dL) 182 H (75-99) mg/dL Microbiology - Last 24 Hours (Table) 05/18/19 17:53 Blood Culture - Preliminary Blood No Growth after 72 hours 05/19/19 00:01 Stool Culture - Preliminary Stool Assessment and Plan Plan: Septic shock, improved, likely secondary to infectious colitis; less likely ischemic colitis (lack of pain or hematochezia) -C/w MICU level of care at this time -Levophed infusion currently being held -Continue with Zosyn and Flagyl for now -F/u blood and stool cultures -Leukocytosis resolved -IVFs decreased to 40 cc/hr AMS, improved, likely due to metabolic encephalopathy in setting of sepsis and NICA -C/w treatment of sepsis -Carotid duplex, CT head and Neurology consultation reviewed -Neurochecks -Monitor mental status NICA, improved -Nephrology recs appreciated. Bicarb infusion on hold -C/w IVFs -S/p multiple lasix doses Afib w/ RVR -C/w Eliquis and Amiodarone PO -S/p swallowing eval -- cleared -Cardiology recs appreciated Normocytic anemia -Likely secondary to IVFs along with phlebotomy and acute stressors -Monitor for now DM Type 2 -Increase Levemir to 15 U qhs and TON with FS Hypothyroidism -C/w home dose Levothyroxine DVT prophylaxis -Eliquis Discussed with: Patient Anticipated discharge date: 2-[address]: [facility] A total of 35 minutes was spent on the care of this complex patient more than 50% of the time was spent in counseling and care coordination.
[2019-05-22] MEDS: NOREPINEPHRINE 4 MG in SODIUM CHLORIDE 0.9% 250 ML IV SCH (09:07)
[2019-05-22] MEDS: PIPERACILLIN-TAZOBACTAM 3.375 GM in SODIUM CHLORIDE 0.9% 100 ML IVPB SCH ×2 (09:28→16:52)
[2019-05-22] MEDS: APIXABAN 5 MG TAB PO SCH ×2 (09:28→21:01)
[2019-05-22] MEDS: SODIUM CHLORIDE 0.9% 1,000 ML IV SCH (09:29)
[2019-05-22] MEDS: ASPIRIN 81 MG PO SCH (09:29)
[2019-05-22] MEDS: GABAPENTIN 300 MG CAP PO SCH (09:29)
[2019-05-22] MEDS: PANTOPRAZOLE 40 MG TABLET PO SCH (09:29)
[2019-05-22] MEDS: CARBIDOPA-LEVODOPA 25-100 MG 1 EACH TAB PO SCH ×4 (09:29→21:01)
[2019-05-22] MEDS: METOPROLOL TARTRATE 12.5 MG TAB PO SCH (09:29)
[2019-05-22] MEDS: AMIODARONE 200 MG TAB PO SCH (09:30)
[2019-05-22] MEDS ORDERED: MIDODRINE 5 MG TAB PO SCH (10:00)
--- NOTE | 2019-05-22 10:04 | P.PN ---
Subjective Progress Note Date: 05/22/19 Seen and examined for the follow-up of acute kidney injury. Urine output of 2200 ML's in the last 24 hours. But still positive balance of 400 ML's. Blood pressures still soft, off pressors. Family at bedside. Objective - Vital Signs Vital signs: Vital Signs Temp 97.7 F 05/22/19 08:00 Pulse 89 05/22/19 09:00 Resp 19 05/22/19 09:00 BP 104/49 05/22/19 09:00 Pulse Ox 98 05/22/19 09:00 Intake & Output 05/21/19 05/22/19 05/22/19 18:59 06:59 18:59 Intake Total 0434.609 8032 120 Output Total 1145 1070 235 Balance 255.785 210 -115 Weight 105 kg Intake: IV 837.34 1280 120 Amiodarone 360 mg In 33.34 Dextrose 5% in Water 200 ml @ 0.5 MG/MIN 16.667 mls/hr IV .Q12H [facility] Rx#: [id number] Dextrose 5% in Water 1, 120 000 ml @ 40 mls/hr IV . Q24H [facility] with Sodium Bicarb (1 Meq/ml) 150 ml Rx#:[id number] Magnesium Sulfate-D5w Pmx 200 1 gm In Dextrose/Water 1 100ml.bag @ 100 mls/hr IVPB Q1H [facility] Rx#: [id number] Piperacillin-Tazobactam 3 75 100 .375 gm In Sodium Chloride 0.9% 100 ml @ 25 mls/hr IVPB Q12HR [facility] Rx #:[id number] Potassium Chloride 10 meq 400 In Water For Injection 1 100ml.bag @ 100 mls/hr IVPB Q1HR [facility] Rx#: [id number] Pressure Bag 9 Sodium Chloride 0.9% 1, 300 480 120 000 ml @ 40 mls/hr IV . Q24H [facility] Rx#:[id number] metroNIDAZOLE-NS PMX 500 300 100 mg In Saline 1 100ml.bag @ 100 mls/hr IVPB Q8HR [facility] Rx#:[id number] Intake, IV Titration 113.445 Amount Amiodarone 300 mg In 75 Dextrose 5% in Water 250 ml @ 0.5 MG/MIN 25 mls/hr IV .Q10H [facility] Rx#: [id number] Norepinephrine 4 mg In 38.445 Sodium Chloride 0.9% 250 ml @ 0.05 MCG/KG/MIN 17. 964 mls/hr IV .Q14H9M [facility] Rx#:[id number] Oral 450 Output: Urine 1145 1070 235 Other: Voiding Method Indwelling Catheter Indwelling Catheter # Bowel Movements 1 ABP, PAP, CO, CI - Last Documented Arterial Blood Pressure 119/48 - Exam No acute distress S1-S2 heard Decreased breath sounds Tatum catheter Edema - Labs CBC & Chem 7: 05/22/19 05:20 05/22/19 05:20 Labs: Abnormal Lab Results - Last 24 Hours (Table) 05/21/19 05/21/19 05/21/19 Range/Units 11:44 16:53 20:11 RBC (3.80-5.40) m/uL Hgb (11.4-16.0) gm/dL Hct (34.0-46.0) % Sodium (137-145) mmol/L BUN (7-17) mg/dL Creatinine (0.52-1.04) mg/dL Glucose (74-99) mg/dL POC Glucose (mg/dL) 215 H 251 H 256 H (75-99) mg/dL 05/22/19 05/22/19 05/22/19 Range/Units 05:20 05:20 06:46 RBC 2.89 L (3.80-5.40) m/uL Hgb 9.3 L (11.4-16.0) gm/dL Hct 26.9 L (34.0-46.0) % Sodium 135 L (137-145) mmol/L BUN 46 H (7-17) mg/dL Creatinine 1.72 H (0.52-1.04) mg/dL Glucose 160 H (74-99) mg/dL POC Glucose (mg/dL) 182 H (75-99) mg/dL Microbiology - Last 24 Hours (Table) 05/18/19 17:53 Blood Culture - Preliminary Blood No Growth after 72 hours 05/19/19 00:01 Stool Culture - Preliminary Stool Assessment and Plan Assessment: #1 nonoliguric acute kidney injury secondary to ischemic ATN from low blood pressures. Baseline creatinine 1.0-1.5 MG per DL. #2 septic shock resolved. Suspected infectious colitis. #3 chronic kidney disease stage III secondary to nephrosclerosis with a baseline creatinine of 1.0-1.5 MG per DL. #4 low normal blood pressures #5 A. fib with RVR #6, placated diabetes on insulin. #7 metabolic acidosis resolved off bicarb drip. #8 edema Plan: #1 renal function continue to improve. Add Lasix 20 mg IV twice a day for diuresis. #2 add low-dose midodrine for hemodynamic support. #3 avoid nephrotoxic agents and hypotensive episodes. #4 labs in the morning
--- NOTE | 2019-05-22 11:25 | PN ---
PROGRESS NOTE Mrs. Thorne is a 78-year-old female with a history of atrial flutter, status post ablation, history of aortic valve replacement and a history of coronary artery bypass grafting. She presented to the hospital with abdominal discomfort, worsening renal failure and diarrhea with metabolic encephalopathy. She is feeling better today. Her breathing is better. She is denying any chest pain. She denies any nausea. She is hemodynamically stable. She continues to be on amiodarone 200 mg daily, Eliquis 5 mg twice a day, aspirin 81 mg daily, Lipitor 10 mg daily, Sinemet, insulin, metoprolol tartrate 12.5 mg twice a day. She was on norepinephrine earlier. PHYSICAL EXAMINATION: Blood pressure 104/50 with a heart rate in the 80s. LUNGS: No wheezes. HEART: S1, S2 with systolic murmur. No diastolic murmur. No rub. ABDOMEN: Soft, nontender. EXTREMITIES: One plus edema. LAB DATA/IMAGING: BUN and creatinine or 46 and 1.72. Potassium 4.6. Hemoglobin 9.3. Her chest x-ray revealed evidence of bibasilar airspace. IMPRESSION: 1. History of coronary artery bypass grafting and aortic valve replacement. 2. Atrial flutter, anticoagulated with rate controlled. 3. Worsening renal function. 4. Change in mental status with gastroenteritis. 5. Hypotension, improved. 6. Pulmonary hypertension. 7. Diabetes mellitus. 8. Parkinson's disease. RECOMMENDATIONS: From the cardiac standpoint, will continue present therapy. Will follow her renal function. Patient may require further diuretics, depending on her lung status. Her blood pressure has been stable and I will increase the dose of her beta vale. Depending on her progress, further recommendations will be made. MMODL / IJN: [id number] /
[2019-05-22 11:49] LABS: Glucose,Whole Blood 131 mg/dL (75-99)
[2019-05-22] MEDS: FUROSEMIDE 10 MG/ML 2 ML VIAL IV SCH ×2 (12:16→21:01)
--- NOTE | 2019-05-22 13:15 | P.PN ---
Subjective Progress Note Date: 05/22/19 This is a pleasant 78-year-old female patient with known history of coronary artery disease, previous bypass surgery, previous aortic valve replacement, along with history of chronic atrial fibrillation and diabetes mellitus and hypothyroidism. The patient has been followed up by Dr. Berry on outpatient basis. The patient acutely became ill this morning. She woke up and she developed nausea and emesis and watery diarrhea which is going on for now. The patient is passing significant amount of liquidy bowel movements. No melanotic. No bright red blood per rectum. No hematemesis. No abdominal pain or distention. No channel history. No ingestion of any contaminated material or food products. No sick contacts. She lives with her daughter and her daughter is healthy and she did not have any gastrointestinal symptoms. She's been eating home food Throughout the past month. No recent antibiotic intake. Reports history of inflammatory bowel disease or infectious colitis. No history of any inflammatory bowel disease. In the ED, the patient a white cell count of 21. The patient and acute kidney injury with a creatinine of 2.1. Lactic acid level was at 9. Potassium level was at 6.0. The patient was found to be borderline hypotensive with a systolic blood pressure in the mid 80s. The patient was given a total of 3 L of IV fluids and the fourth is infusing for now. The patient is also on a maintenance 130 mL an hour normal saline. Resume amount of urine output. She underwent a straight cathetered UA essentially negative with +1 protein. Stool for C. diff is negative. Blood sugar was elevated at 3 on 35. Nevertheless the acetone was negative. She is awake and alert. She is following commands and answering questions. She is currently on normal saline at the rate of 1 30 mL an hour. No fever. No chills. No night sweats. No other complaints otherwise for now. On today's evaluation of 05/19/2019 I'm seeing this patient for a follow-up. Clinically the patient is having liquidy diarrhea. Hemodynamically she is still having the low blood pressure since earlier this morning. The patient was given a total of 6l fluids and the patient was receiving normal saline infusion as maintenance at the rate of 130 mL an hour. The patient was furthermore started on low dose norepinephrine infusion today and this was initiated to maintain a mean artery pressure above 65. The patient is having adequate urine output. Lactic acid levels are improving. White cell count is dropped. Note that the lactic acid level is down to 2.6. The creatinine is at 2.4 for now. The follow-up white cell count is down to 17 from a baseline of 21.9. Stool for C. diff was negative. Blood cultures still pending. The stool culture also pending. CAT scan of the abdomen and pelvis was done yesterday showed moderate circumferential mural thickening of the entire length of the distal half of the transverse colon and descending colon and the sigmoid colon consistent with inflammatory versus infectious colitis. No pneumoperitoneum. The patient is currently on IV Zosyn. No nausea. No vomiting. No abdominal pain. Altered mentation. No fever. No chills. The patient is requesting some oral intake. On 05/20/2019 patient seen in follow-up in the intensive care unit. Last night change in mentation has been noted, patient became more lethargic, confused, but no unilateral motor weakness was noted, her speech was garbled, and there was concern about acute stroke, "stroke code" was called, NIH score was 16 initially, brain CT showed no acute intracranial process, did show cerebral atrophy, and sinusitis. NIH score did improve on subsequent reevaluation and was down to 14, however patient remains lethargic, and a blood gas was obtained showing pO2 of 56, pCO2 46, and pH of 7.23, consistent with mixed respiratory and metabolic acidosis and acute hypoxemic respiratory failure. Chest x-ray this morning showed a small bilateral pleural effusions, and cephalization, changes to sit with fluid volume overload and patient was given a dose of IV Lasix 60 mg 1. Patient remains on a small dose of Levofed at 4 mics per minute, patient did receive significant amount of fluid and initial fluid resuscitation, over 6 L in the fluid boluses for hypotension, acute kidney injury related to nausea, vomiting, diarrhea, and significant intravascular volume depletion. Patient did have 2 more liquid stools last night, C. diff was negative, stool cultures are pending at this time, blood culture showed no growth, she has had low-grade fevers. Remains on the bicarb infusion, and today's blood work shows serum bicarb slightly improved up to 21, serum sodium was 134, potassium is 5.0, quite is 105, BUN is 59, and creatinine is 3.08, slight worsening renal profile is noted. White count is improved, down to 15.6. Lung sounds are diminished, patient is lethargic, but is opening eyes, she is inattentive, she knows she is in the hospital, but was falling asleep or she could tell me the month of the year. He was placed on BiPAP support with pressures of 12 and 6, and FiO2 of 100%. Her family was updated on her condition. Patient remains critically ill. He does have a history of bioprosthetic aortic valve and the echocardiogram showed aortic regurgitation, and abnormally functioning bioprosthetic aortic valve, EF of 45-50%, and severe pulmonary hypertension with PA systolic of 64 mmHg. Remains on Zosyn for antibiotic coverage, there has been no nausea or vomiting, no abdominal pain, her abdomen is soft, she denies any abdominal tenderness. On 05/21/2019, the patient has improved compared to yesterday. She is nothing any significant respiratory distress and the patient was taken off the BiPAP. She is currently on 3 L oxygen by nasal cannula. She is awake and alert and she is following commands and answering questions. She is able to tolerate some soft diet. Note that the patient had some issues with mental status which improved on today's evaluation. She also had issues with acute pulmonary edema and IV fluids have been cut down and the patient was started on IV Lasix. Subsequently she producing adequate amount of urine output and the patient is breathing normally without having any labored breathing. She is running on low- dose norepinephrine infusion for now. The cardiac rhythm is atrial fibrillation and the patient is having frequent PACs and PVCs. Electrolytes are within normal limits. The potassium level is at 3.7. Magnesium level is at 1.7. Renal function is also improving and the BUN is down to 52 with a creatinine of 2.2. White cell count is down to 15.7. No further bouts of diarrhea and the patient's white cell count is down to 15.7 and the patient is currently on a combination of Zosyn and Flagyl. The patient has some increased edema in lower extremities. The patient is quite weak and her weakness has essentially of old her past 48 hours. No nausea. No vomiting. No emesis. No abdominal distention. No chest pain. No significant shortness of breath. Family is at the bedside. On 05/22/2019, the patient is awake and alert. She is having some cloudiness in her mentation. For the most for she is able to answer questions. She is on 3 L about 2 by nasal cannula. No signs of any respiratory distress. No further episodes of diarrhea. The patient is was resuscitated IV fluids. The patient is currently on a bicarb infusion which was discontinued. The patient has improved and her renal function and creatinine is down to 1.7 with a BUN of 46. Serum bicarbs at 26. The WBC count is also dropped down to 10.1. Noted the patient had significant diarrhea resulted in to hemodynamic instability. The patient's pro-calcitonin level was 14.2 very highly suggestive underlying b acterial infection. He remains on accommodation of Zosyn and Flagyl. She is tolerating antibiotics well without any major complications. The cardiac rhythm is sinus and she is having significant number of PACs and PVCs over the past 24- 48 hours. In terms of cardiac medication, the patient has been switched to oral amiodarone at a dose of 200 mg by mouth twice a day. The patient is also taken metoprolol 25 mg by mouth twice a day and Eliquis for long-term anticoagulation. The patient otherwise is doing well. She is profoundly weak and I noted this weakness developing over the past few days. She is having difficulties in raising her arms against gravity. She will need aggressive physical therapy. Objective - Vital Signs Vital signs: Vital Signs Temp 98.1 F 05/22/19 12:00 Pulse 83 05/22/19 12:00 Resp 22 05/22/19 12:00 BP 104/49 05/22/19 09:00 Pulse Ox 98 05/22/19 12:00 Intake & Output 05/21/19 05/22/19 05/22/19 18:59 06:59 18:59 Intake Total 7618.529 4434 340 Output Total 1145 1070 475 Balance 255.785 210 -135 Weight 105 kg Intake: IV 837.34 1280 240 Amiodarone 360 mg In 33.34 Dextrose 5% in Water 200 ml @ 0.5 MG/MIN 16.667 mls/hr IV .Q12H [facility] Rx#: [id number] Dextrose 5% in Water 1, 120 000 ml @ 40 mls/hr IV . Q24H [facility] with Sodium Bicarb (1 Meq/ml) 150 ml Rx#:[id number] Magnesium Sulfate-D5w Pmx 200 1 gm In Dextrose/Water 1 100ml.bag @ 100 mls/hr IVPB Q1H [facility] Rx#: [id number] Piperacillin-Tazobactam 3 75 100 .375 gm In Sodium Chloride 0.9% 100 ml @ 25 mls/hr IVPB Q12HR [facility] Rx #:[id number] Potassium Chloride 10 meq 400 In Water For Injection 1 100ml.bag @ 100 mls/hr IVPB Q1HR [facility] Rx#: [id number] Pressure Bag 9 Sodium Chloride 0.9% 1, 300 480 240 000 ml @ 40 mls/hr IV . Q24H [facility] Rx#:[id number] metroNIDAZOLE-NS PMX 500 300 100 mg In Saline 1 100ml.bag @ 100 mls/hr IVPB Q8HR [facility] Rx#:[id number] Intake, IV Titration 113.445 100 Amount Amiodarone 300 mg In 75 Dextrose 5% in Water 250 ml @ 0.5 MG/MIN 25 mls/hr IV .Q10H [facility] Rx#: [id number] Norepinephrine 4 mg In 38.445 Sodium Chloride 0.9% 250 ml @ 0.05 MCG/KG/MIN 17. 964 mls/hr IV .Q14H9M [facility] Rx#:[id number] Piperacillin-Tazobactam 3 100 .375 gm In Sodium Chloride 0.9% 100 ml @ 25 mls/hr IVPB Q8HR [facility] Rx# :[id number] Oral 450 Output: Urine 1145 1070 475 Other: Voiding Method Indwelling Catheter Indwelling Catheter # Bowel Movements 1 1 ABP, PAP, CO, CI - Last Documented Arterial Blood Pressure 112/46 - Exam The patient appeared well nourished and normally developed. Vital signs as documented. The patient is currently off liters of oxygen by nasal cannula. Her breathing is nonlabored. Head exam is unremarkable. No scleral icterus or corneal arcus noted. Neck is without jugular venous distension, thyromegaly, or carotid bruits. Carotid upstrokes are brisk bilaterally. Lungs are clear to auscultation and percussion. Cardiac exam reveals the PMI to be normally sized and situated. Rhythm is regular. First and second heart sounds normal. No murmurs, rubs or gallops. The patient had a thoracotomy scar over the anterior chest area. There is a faint grade 3/6 systolic ejection murmur heard over the apex. There is also radiating to the neck area. Abdominal exam reveals normal bowel sounds, no masses, no organomegaly and no aortic enlargement. Extremities are edematous and both femoral and pedal pulses are normal.Examination of the skin revealed no evidence of significant rashes, suspicious appearing nevi or other concerning lesions. Neurologically the patient is awake and alert and is no focal neurological deficits. The patient has profound motor weakness and she is having difficulties in moving her legs and raising her arms against gravity. Her cough is weak. No focal neurological deficit. Pupils are equal and reactive to light. Mental status is improved considerably although she is having some cloudiness and occasional difficulties in stating the year. She is oriented to place and people around her. No Hallucinations. I - Labs CBC & Chem 7: 05/22/19 05:20 05/22/19 05:20 Labs: Abnormal Lab Results - Last 24 Hours (Table) 05/21/19 05/21/19 05/22/19 Range/Units 16:53 20:11 05:20 RBC 2.89 L (3.80-5.40) m/uL Hgb 9.3 L (11.4-16.0) gm/dL Hct 26.9 L (34.0-46.0) % Sodium (137-145) mmol/L BUN (7-17) mg/dL Creatinine (0.52-1.04) mg/dL Glucose (74-99) mg/dL POC Glucose (mg/dL) 251 H 256 H (75-99) mg/dL 05/22/19 05/22/19 05/22/19 Range/Units 05:20 06:46 11:38 RBC (3.80-5.40) m/uL Hgb (11.4-16.0) gm/dL Hct (34.0-46.0) % Sodium 135 L (137-145) mmol/L BUN 46 H (7-17) mg/dL Creatinine 1.72 H (0.52-1.04) mg/dL Glucose 160 H (74-99) mg/dL POC Glucose (mg/dL) 182 H 131 H (75-99) mg/dL Microbiology - Last 24 Hours (Table) 05/18/19 17:53 Blood Culture - Preliminary Blood No Growth after 72 hours 05/19/19 00:01 Stool Culture - Preliminary Stool Assessment and Plan Plan: 1 acute gastroenteritis, exact cause is not clear. Rule out viral gas troenteritis. Rule out bacterial causes. The patient agrees and accommodation Zosyn and Flagyl. Diarrhea has subsided for now. The pro calcitonin level was elevated. Cultures of the blood and stool at all negative. 2 acute lactic acidosis, improving 3 acute kidney injury secondary to above, improving and the creatinine continues to improve. 4 acute leukocytosis secondary to above, improving 5 hypotension secondary to above, recovered 6 coronary artery disease with previous bypass surgery and recent cardiac catheterization from February 2019 showing subtotal occluded LAD with competitive flow from SVG and mild RCA disease with a SVG to RCA and LAD being both patent 7 aortic valve replacement 8 secondary pulmonary hypertension 9 chronic atrial fibrillation maintained on long-term anticoagulation with Eliquis 10 diabetes mellitus 11 hyperlipidemia 13 hypothyroidism 14 Parkinson's disease Plan In the normal saline today to 40 mL an hour. The patient will monitor for diarr hea. The mental status will be monitored. We are going to allow the patient underwent aggressive physical therapy. The patient will need also to continue the current antibiotic coverage. Cardiac status is stable. She has been placed on a combination of metoprolol and amiodarone in addition to long-term anticoagulation. She'll be kept in ICU for 24 hours.
[2019-05-22 14:20] LABS: ABG Base Excess 0.8 mmol/L; ABG HCO3 28 mmol/L (21-25); ABG Oxygen Saturation 98.2 % (94-97); ABG PCO2 58 mmHg (35-45); ABG PH 7.28 (7.35-7.45); ABG PO2 115 mmHg (83-108); ABG TCO2 29 mmol/L (19-24)
[2019-05-22 14:30] LABS: Glucose,Whole Blood 183 mg/dL (75-99)
[2019-05-22] MEDS: metroNIDAZOLE 500 MG TAB PO SCH (16:52)
[2019-05-22 17:17] LABS: Glucose,Whole Blood 175 mg/dL (75-99)
[2019-05-22 20:30] LABS: Glucose,Whole Blood 209 mg/dL (75-99)
[2019-05-22] MEDS ORDERED: INSULIN DETEMIR (LEVEMIR) 100 UNIT/ML SYR SQ SCH (21:00)
[2019-05-22] MEDS: METOPROLOL TARTRATE 25 MG TAB PO SCH (21:01)
[2019-05-22] MEDS: ATORVASTATIN 10 MG TAB PO SCH (21:01)
[2019-05-22 22:22] LABS: ABG Base Excess 0.6 mmol/L; ABG HCO3 26 mmol/L (21-25); ABG Oxygen Saturation 99.2 % (94-97); ABG PCO2 47 mmHg (35-45); ABG PH 7.35 (7.35-7.45); ABG PO2 147 mmHg (83-108); ABG TCO2 28 mmol/L (19-24); Allen Test Performed? Yes
[2019-05-22 22:33] LABS: Basophils % (A) 0 %; Eosinophils # (A) 0.2 k/uL (0-0.7); Eosinophils % (A) 2 %; HCT 31.2 % (34.0-46.0); HGB 10.2 gm/dL (11.4-16.0); Lymphocytes # (A) 0.6 k/uL (1.0-4.8); Lymphocytes % (A) 8 %; MCH 31.5 pg (25.0-35.0); MCHC 32.8 g/dL (31.0-37.0); MCV 96.2 fL (80.0-100.0); Mean Platelet Volume 8.6; Monocytes # (A) 0.3 k/uL (0-1.0); Monocytes % (A) 4 %; Neutrophils # (A) 7.1 k/uL (1.3-7.7); Neutrophils % (A) 85 %; Platelet Count 184 k/uL (150-450); RBC 3.24 m/uL (3.80-5.40); RDW 12.8 % (11.5-15.5); WBC 8.3 k/uL (3.8-10.6)
[2019-05-22 22:51] LABS: Calcium 8.4 mg/dL (8.4-10.2); Magnesium 1.9 mg/dL (1.6-2.3); Phosphorus 2.9 mg/dL (2.5-4.5); Potassium 4.4 mmol/L (3.5-5.1)
[2019-05-23] MEDS: NOREPINEPHRINE 4 MG in SODIUM CHLORIDE 0.9% 250 ML IV SCH ×2 (00:26→15:54)
[2019-05-23] MEDS: metroNIDAZOLE 500 MG TAB PO SCH ×3 (00:27→16:45)
[2019-05-23] MEDS: PIPERACILLIN-TAZOBACTAM 3.375 GM in SODIUM CHLORIDE 0.9% 100 ML IVPB SCH ×3 (00:27→16:44)
[2019-05-23 04:23] LABS: HCT 30.2 % (34.0-46.0); HGB 10.2 gm/dL (11.4-16.0); MCH 31.5 pg (25.0-35.0); MCHC 33.6 g/dL (31.0-37.0); MCV 93.8 fL (80.0-100.0); Mean Platelet Volume 7.5; Platelet Count 175 k/uL (150-450); RBC 3.22 m/uL (3.80-5.40); RDW 12.5 % (11.5-15.5); WBC 8.1 k/uL (3.8-10.6)
[2019-05-23 05:29] LABS: Calcium 8.6 mg/dL (8.4-10.2); Potassium 4.3 mmol/L (3.5-5.1)
[2019-05-23 07:12] LABS: Glucose,Whole Blood 142 mg/dL (75-99)
[2019-05-23] MEDS: LEVOTHYROXINE 137 MCG TAB PO SCH (07:16)
[2019-05-23] MEDS: INSULIN ASPART (NovoLOG) 100 UNIT/ML VIAL SQ SCH ×4 (07:16→20:44)
--- NOTE | 2019-05-23 07:59 | XR ---
EXAMINATION TYPE: XR chest 1V DATE OF EXAM: 05/23/2019 HISTORY: shortness of breath. REFERENCE: Previous study dated 05/22/2019. FINDINGS: There has been a midline sternotomy. There is minimal bibasilar airspace disease. Pleural spaces are clear. Heart size is upper limits of normal. Aeration has improved on the left. IMPRESSION: IMPROVED AERATION, LEFT LUNG BASE.
--- NOTE | 2019-05-23 08:02 | P.PN ---
Subjective Progress Note Date: 05/23/19 This is a pleasant 78-year-old female patient with known history of coronary artery disease, previous bypass surgery, previous aortic valve replacement, along with history of chronic atrial fibrillation and diabetes mellitus and hypothyroidism. The patient has been followed up by Dr. Berry on outpatient basis. The patient acutely became ill this morning. She woke up and she developed nausea and emesis and watery diarrhea which is going on for now. The patient is passing significant amount of liquidy bowel movements. No melanotic. No bright red blood per rectum. No hematemesis. No abdominal pain or distention. No channel history. No ingestion of any contaminated material or food products. No sick contacts. She lives with her daughter and her daughter is healthy and she did not have any gastrointestinal symptoms. She's been eating home food Throughout the past month. No recent antibiotic intake. Reports history of inflammatory bowel disease or infectious colitis. No history of any inflammatory bowel disease. In the ED, the patient a white cell count of 21. The patient and acute kidney injury with a creatinine of 2.1. Lactic acid level was at 9. Potassium level was at 6.0. The patient was found to be borderline hypotensive with a systolic blood pressure in the mid 80s. The patient was given a total of 3 L of IV fluids and the fourth is infusing for now. The patient is also on a maintenance 130 mL an hour normal saline. Resume amount of urine output. She underwent a straight cathetered UA essentially negative with +1 protein. Stool for C. diff is negative. Blood sugar was elevated at 3 on 35. Nevertheless the acetone was negative. She is awake and alert. She is following commands and answering questions. She is currently on normal saline at the rate of 1 30 mL an hour. No fever. No chills. No night sweats. No other complaints otherwise for now. On today's evaluation of 05/19/2019 I'm seeing this patient for a follow-up. Clinically the patient is having liquidy diarrhea. Hemodynamically she is still having the low blood pressure since earlier this morning. The patient was given a total of 6l fluids and the patient was receiving normal saline infusion as maintenance at the rate of 130 mL an hour. The patient was furthermore started on low dose norepinephrine infusion today and this was initiated to maintain a mean artery pressure above 65. The patient is having adequate urine output. Lactic acid levels are improving. White cell count is dropped. Note that the lactic acid level is down to 2.6. The creatinine is at 2.4 for now. The follow-up white cell count is down to 17 from a baseline of 21.9. Stool for C. diff was negative. Blood cultures still pending. The stool culture also pending. CAT scan of the abdomen and pelvis was done yesterday showed moderate circumferential mural thickening of the entire length of the distal half of the transverse colon and descending colon and the sigmoid colon consistent with inflammatory versus infectious colitis. No pneumoperitoneum. The patient is currently on IV Zosyn. No nausea. No vomiting. No abdominal pain. Altered mentation. No fever. No chills. The patient is requesting some oral intake. On 05/20/2019 patient seen in follow-up in the intensive care unit. Last night change in mentation has been noted, patient became more lethargic, confused, but no unilateral motor weakness was noted, her speech was garbled, and there was concern about acute stroke, "stroke code" was called, NIH score was 16 initially, brain CT showed no acute intracranial process, did show cerebral atrophy, and sinusitis. NIH score did improve on subsequent reevaluation and was down to 14, however patient remains lethargic, and a blood gas was obtained showing pO2 of 56, pCO2 46, and pH of 7.23, consistent with mixed respiratory and metabolic acidosis and acute hypoxemic respiratory failure. Chest x-ray this morning showed a small bilateral pleural effusions, and cephalization, changes to sit with fluid volume overload and patient was given a dose of IV Lasix 60 mg 1. Patient remains on a small dose of Levofed at 4 mics per minute, patient did receive significant amount of fluid and initial fluid resuscitation, over 6 L in the fluid boluses for hypotension, acute kidney injury related to nausea, vomiting, diarrhea, and significant intravascular volume depletion. Patient did have 2 more liquid stools last night, C. diff was negative, stool cultures are pending at this time, blood culture showed no growth, she has had low-grade fevers. Remains on the bicarb infusion, and today's blood work shows serum bicarb slightly improved up to 21, serum sodium was 134, potassium is 5.0, quite is 105, BUN is 59, and creatinine is 3.08, slight worsening renal profile is noted. White count is improved, down to 15.6. Lung sounds are diminished, patient is lethargic, but is opening eyes, she is inattentive, she knows she is in the hospital, but was falling asleep or she could tell me the month of the year. He was placed on BiPAP support with pressures of 12 and 6, and FiO2 of 100%. Her family was updated on her condition. Patient remains critically ill. He does have a history of bioprosthetic aortic valve and the echocardiogram showed aortic regurgitation, and abnormally functioning bioprosthetic aortic valve, EF of 45-50%, and severe pulmonary hypertension with PA systolic of 64 mmHg. Remains on Zosyn for antibiotic coverage, there has been no nausea or vomiting, no abdominal pain, her abdomen is soft, she denies any abdominal tenderness. On 05/21/2019, the patient has improved compared to yesterday. She is nothing any significant respiratory distress and the patient was taken off the BiPAP. She is currently on 3 L oxygen by nasal cannula. She is awake and alert and she is following commands and answering questions. She is able to tolerate some soft diet. Note that the patient had some issues with mental status which improved on today's evaluation. She also had issues with acute pulmonary edema and IV fluids have been cut down and the patient was started on IV Lasix. Subsequently she producing adequate amount of urine output and the patient is breathing normally without having any labored breathing. She is running on low- dose norepinephrine infusion for now. The cardiac rhythm is atrial fibrillation and the patient is having frequent PACs and PVCs. Electrolytes are within normal limits. The potassium level is at 3.7. Magnesium level is at 1.7. Renal function is also improving and the BUN is down to 52 with a creatinine of 2.2. White cell count is down to 15.7. No further bouts of diarrhea and the patient's white cell count is down to 15.7 and the patient is currently on a combination of Zosyn and Flagyl. The patient has some increased edema in lower extremities. The patient is quite weak and her weakness has essentially of old her past 48 hours. No nausea. No vomiting. No emesis. No abdominal distention. No chest pain. No significant shortness of breath. Family is at the bedside. On 05/22/2019, the patient is awake and alert. She is having some cloudiness in her mentation. For the most for she is able to answer questions. She is on 3 L about 2 by nasal cannula. No signs of any respiratory distress. No further episodes of diarrhea. The patient is was resuscitated IV fluids. The patient is currently on a bicarb infusion which was discontinued. The patient has improved and her renal function and creatinine is down to 1.7 with a BUN of 46. Serum bicarbs at 26. The WBC count is also dropped down to 10.1. Noted the patient had significant diarrhea resulted in to hemodynamic instability. The patient's pro-calcitonin level was 14.2 very highly suggestive underlying b acterial infection. He remains on accommodation of Zosyn and Flagyl. She is tolerating antibiotics well without any major complications. The cardiac rhythm is sinus and she is having significant number of PACs and PVCs over the past 24- 48 hours. In terms of cardiac medication, the patient has been switched to oral amiodarone at a dose of 200 mg by mouth twice a day. The patient is also taken metoprolol 25 mg by mouth twice a day and Eliquis for long-term anticoagulation. The patient otherwise is doing well. She is profoundly weak and I noted this weakness developing over the past few days. She is having difficulties in raising her arms against gravity. She will need aggressive physical therapy. 05/23/2019, the patient is awake and alert. Note that yesterday, the patient had some cloudiness in her mentation. Her blood gases was done and showed some mild hypercapnic respiratory acidosis. She was placed on the BiPAP immediately she improved. She is profoundly weak. His extensive weakness in her upper and lower extremities. I think she is somewhat hypoventilating also. The chest x- rays clear. Would not having any issues with her oxygenation and she does well and states about 2 by nasal cannula. Nevertheless, she is having issues with ventilation. And this obviously brings up issues for hypoventilation. Her diarrhea is still present on and off. Over the less, she is well resuscitated. Her white cell count is down to 8.1. The renal function continues to improve the creatinine is down to 1.34. No altered mentation this morning pH was awake and she was able to follow commands and answering questions. Fever. No chills. He is currently on a BiPAP at a pressure of 12/5 cm of water with an FiO2 of 35%. Noted all of the cultures are negative. Upon further questioning, I was told that the patient was given a flu shot just a day or 2 prior to her presen tation. She has underlying Parkinson's disease. Objective - Vital Signs Vital signs: Vital Signs Temp 98.9 F 05/23/19 04:00 Pulse 92 05/23/19 06:00 Resp 13 05/23/19 06:00 BP 117/57 05/23/19 05:00 Pulse Ox 99 05/23/19 06:00 Intake & Output 05/22/19 05/23/19 05/23/19 18:59 06:59 18:59 Intake Total 1180 580 Output Total 1235 1675 Balance -55 -1095 Weight 105.4 kg Intake: IV 580 580 Piperacillin-Tazobactam 3 100 100 .375 gm In Sodium Chloride 0.9% 100 ml @ 25 mls/hr IVPB Q12HR [facility] Rx #:[id number] Sodium Chloride 0.9% 1, 480 480 000 ml @ 40 mls/hr IV . Q24H [facility] Rx#:[id number] Intake, IV Titration 100 Amount Piperacillin-Tazobactam 3 100 .375 gm In Sodium Chloride 0.9% 100 ml @ 25 mls/hr IVPB Q8HR [facility] Rx# :[id number] Oral 500 Output: Urine 1235 1675 Other: Voiding Method Indwelling Catheter Indwelling Catheter # Bowel Movements 1 2 ABP, PAP, CO, CI - Last Documented Arterial Blood Pressure 142/60 - Exam The patient appeared well nourished and normally developed. Vital signs as documented. The patient is currently on a BiPAP at a pressure of 12/5 with an FiO2 of 35%. The patient is currently off liters of oxygen by nasal cannula. Her breathing is nonlabored. Head exam is unremarkable. No scleral icterus or corneal arcus noted. Neck is without jugular venous distension, thyromegaly, or carotid bruits. Carotid upstrokes are brisk bilaterally. Lungs are clear to auscultation and percussion. Cardiac exam reveals the PMI to be normally sized and situated. Rhythm is regular. First and second heart sounds normal. No murmurs, rubs or gallops. The patient had a thoracotomy scar over the anterior chest area. There is a faint grade 3/6 systolic ejection murmur heard over the apex. There is also radiating to the neck area. Abdominal exam reveals normal bowel sounds, no masses, no organomegaly and no aortic enlargement. Extremities are edematous and both femoral and pedal pulses are normal.Examination of the skin revealed no evidence of significant rashes, suspicious appearing nevi or other concerning lesions. Neurologically the patient is awake and alert and is no focal neurological deficits. The patient has profound motor weakness and she is having difficulties in moving her legs and raising her arms against gravity. Her cough is weak. No focal neurological deficit. Pupils are equal and reactive to light. Mental status is improved considerably although she is having some cloudiness and occasional difficulties in stating the year. She is oriented to place and people around her. No Hallucinations. Reflexes in the lower extremities are quite diminished. Mental status improved following BiPAP treatment. This morning she is awake and alert and following commands and answe ring questions appropriately specially when she is on the BiPAP. Off the BiPAP, her mentation becomes quite cloudy. - Labs CBC & Chem 7: 05/23/19 04:10 05/23/19 04:10 Labs: Abnormal Lab Results - Last 24 Hours (Table) 05/22/19 05/22/19 05/22/19 Range/Units 11:38 14:16 14:18 RBC (3.80-5.40) m/uL Hgb (11.4-16.0) gm/dL Hct (34.0-46.0) % Lymphocytes # (1.0-4.8) k/uL ABG pH 7.28 L (7.35-7.45) ABG pCO2 58 H (35-45) mmHg ABG pO2 115 H (83-108) mmHg ABG HCO3 28 H (21-25) mmol/L ABG Total CO2 29 H (19-24) mmol/L ABG O2 Saturation 98.2 H (94-97) % BUN (7-17) mg/dL Creatinine (0.52-1.04) mg/dL Glucose (74-99) mg/dL POC Glucose (mg/dL) 131 H 183 H (75-99) mg/dL 05/22/19 05/22/19 05/22/19 Range/Units 17:05 20:19 22:12 RBC (3.80-5.40) m/uL Hgb (11.4-16.0) gm/dL Hct (34.0-46.0) % Lymphocytes # (1.0-4.8) k/uL ABG pH (7.35-7.45) ABG pCO2 (35-45) mmHg ABG pO2 (83-108) mmHg ABG HCO3 (21-25) mmol/L ABG Total CO2 (19-24) mmol/L ABG O2 Saturation (94-97) % BUN 36 H (7-17) mg/dL Creatinine 1.44 H (0.52-1.04) mg/dL Glucose 217 H (74-99) mg/dL POC Glucose (mg/dL) 175 H 209 H (75-99) mg/dL 05/22/19 05/22/19 05/23/19 Range/Units 22:12 22:17 04:10 RBC 3.24 L 3.22 L (3.80-5.40) m/uL Hgb 10.2 L 10.2 L (11.4-16.0) gm/dL Hct 31.2 L 30.2 L (34.0-46.0) % Lymphocytes # 0.6 L (1.0-4.8) k/uL ABG pH (7.35-7.45) ABG pCO2 47 H (35-45) mmHg ABG pO2 147 H (83-108) mmHg ABG HCO3 26 H (21-25) mmol/L ABG Total CO2 28 H (19-24) mmol/L ABG O2 Saturation 99.2 H (94-97) % BUN (7-17) mg/dL Creatinine (0.52-1.04) mg/dL Glucose (74-99) mg/dL POC Glucose (mg/dL) (75-99) mg/dL 05/23/19 05/23/19 Range/Units 04:10 07:00 RBC (3.80-5.40) m/uL Hgb (11.4-16.0) gm/dL Hct (34.0-46.0) % Lymphocytes # (1.0-4.8) k/uL ABG pH (7.35-7.45) ABG pCO2 (35-45) mmHg ABG pO2 (83-108) mmHg ABG HCO3 (21-25) mmol/L ABG Total CO2 (19-24) mmol/L ABG O2 Saturation (94-97) % BUN 34 H (7-17) mg/dL Creatinine 1.34 H (0.52-1.04) mg/dL Glucose 152 H (74-99) mg/dL POC Glucose (mg/dL) 142 H (75-99) mg/dL Microbiology - Last 24 Hours (Table) 05/18/19 17:53 Blood Culture - Preliminary Blood No Growth after 96 hours 05/19/19 00:01 Stool Culture - Final Stool Assessment and Plan Plan: 1 acute gastroenteritis, exact cause is not clear. In the setting of acute diarrhea and neuromuscular weakness, the possibility of Guillain-Hernandez syndrome this to be considered. It is possible that the patient was infected either by Campylobacter or any other gastrointestinal bacteria which have contributed to neuromuscular weakness and Guillain-Hernandez syndrome and cause significant amount of diarrhea. The patient also received a flu shot prior to her admission and the possibility of an acute viral gastroenteritis followed by Guillain-Hernandez syndrome is to be considered especially with her significant neuromuscular weakness. The reflexes lower extremities are done and the patient has significant motor weakness in lower extremities bilaterally. 2 acute lactic acidosis, improves 3 acute kidney injury secondary to above, improving and the creatinine continues to improve. 4 acute leukocytosis secondary to above, improving 5 hypotension secondary to above, recovered 6 coronary artery disease with previous bypass surgery and recent cardiac catheterization from February 2019 showing subtotal occluded LAD with competitive flow from SVG and mild RCA disease with a SVG to RCA and LAD being both patent 7 aortic valve replacement 8 secondary pulmonary hypertension 9 chronic atrial fibrillation maintained on long-term anticoagulation with Eliquis 10 diabetes mellitus 11 hyperlipidemia 13 hypothyroidism 14 Parkinson's disease 15 episodic altered mentation related to hypercapnic respiratory failure and the patient's mentation improves immediately after being placed on a BiPAP. Plan In the normal saline today to 40 mL an hour. The patient will monitor for di arrhea. Keep the patient on BiPAP for now. Monitor the vital. Obtain neurology consultation for possible further investigation of the neuromuscular weakness including the possibility of a lumbar puncture. This is being considered, I'm going to take this patient off Eliquis and proceeded with LP. Continue same antibiotic coverage. She is being gently diuresed. Continue IV Lasix in the lower dose of 20 mg once a day. We'll continue to follow make further recommendations based on her progress. Condition is still critical. Further recommendations are to follow based above-mentioned comorbidities. The simulation was on a more than 30 minutes. Family was informed and updated on her condition. X-ray was reviewed from today and there are no acute abnormalities. Time with Patient: Greater than 30
[2019-05-23] MEDS: PANTOPRAZOLE 40 MG TABLET PO SCH (09:21)
[2019-05-23] MEDS: FUROSEMIDE 10 MG/ML 2 ML VIAL IV SCH (09:21)
[2019-05-23] MEDS: ACETAMINOPHEN TAB 325 MG TAB PO PRN ×2 (09:21→20:43)
[2019-05-23] MEDS: METOPROLOL TARTRATE 25 MG TAB PO SCH ×2 (09:22→09:27)
[2019-05-23] MEDS: CARBIDOPA-LEVODOPA 25-100 MG 1 EACH TAB PO SCH ×4 (09:22→20:43)
[2019-05-23] MEDS: APIXABAN 5 MG TAB PO SCH (09:23)
[2019-05-23] MEDS: AMIODARONE 200 MG TAB PO SCH (09:23)
[2019-05-23] MEDS: ASPIRIN 81 MG PO SCH (09:23)
--- NOTE | 2019-05-23 09:36 | P.PN ---
Subjective Progress Note Date: 05/23/19 Seen and examined for the follow-up of acute kidney injury. Urine output of 2900 ML's in the last 24 hours.feels better today. Family at bedside. Objective - Vital Signs Vital signs: Vital Signs Temp 98.4 F 05/23/19 08:00 Pulse 92 05/23/19 09:00 Resp 14 05/23/19 09:00 BP 117/57 05/23/19 09:00 Pulse Ox 98 05/23/19 09:00 Intake & Output 05/22/19 05/23/19 05/23/19 18:59 06:59 18:59 Intake Total 1180 580 80 Output Total 1235 1675 300 Balance -55 -1095 -220 Weight 105.4 kg Intake: IV 580 580 80 Piperacillin-Tazobactam 3 100 100 .375 gm In Sodium Chloride 0.9% 100 ml @ 25 mls/hr IVPB Q12HR [facility] Rx #:[id number] Sodium Chloride 0.9% 1, 480 480 80 000 ml @ 40 mls/hr IV . Q24H [facility] Rx#:[id number] Intake, IV Titration 100 Amount Piperacillin-Tazobactam 3 100 .375 gm In Sodium Chloride 0.9% 100 ml @ 25 mls/hr IVPB Q8HR [facility] Rx# :[id number] Oral 500 Output: Urine 1235 1675 300 Other: Voiding Method Indwelling Catheter Indwelling Catheter # Bowel Movements 1 2 ABP, PAP, CO, CI - Last Documented Arterial Blood Pressure 137/53 - Exam No acute distress S1-S2 heard Decreased breath sounds Tatum catheter Edema - Labs CBC & Chem 7: 05/23/19 04:10 05/23/19 04:10 Labs: Abnormal Lab Results - Last 24 Hours (Table) 05/22/19 05/22/19 05/22/19 Range/Units 11:38 14:16 14:18 RBC (3.80-5.40) m/uL Hgb (11.4-16.0) gm/dL Hct (34.0-46.0) % Lymphocytes # (1.0-4.8) k/uL ABG pH 7.28 L (7.35-7.45) ABG pCO2 58 H (35-45) mmHg ABG pO2 115 H (83-108) mmHg ABG HCO3 28 H (21-25) mmol/L ABG Total CO2 29 H (19-24) mmol/L ABG O2 Saturation 98.2 H (94-97) % BUN (7-17) mg/dL Creatinine (0.52-1.04) mg/dL Glucose (74-99) mg/dL POC Glucose (mg/dL) 131 H 183 H (75-99) mg/dL 05/22/19 05/22/19 05/22/19 Range/Units 17:05 20:19 22:12 RBC (3.80-5.40) m/uL Hgb (11.4-16.0) gm/dL Hct (34.0-46.0) % Lymphocytes # (1.0-4.8) k/uL ABG pH (7.35-7.45) ABG pCO2 (35-45) mmHg ABG pO2 (83-108) mmHg ABG HCO3 (21-25) mmol/L ABG Total CO2 (19-24) mmol/L ABG O2 Saturation (94-97) % BUN 36 H (7-17) mg/dL Creatinine 1.44 H (0.52-1.04) mg/dL Glucose 217 H (74-99) mg/dL POC Glucose (mg/dL) 175 H 209 H (75-99) mg/dL 05/22/19 05/22/19 05/23/19 Range/Units 22:12 22:17 04:10 RBC 3.24 L 3.22 L (3.80-5.40) m/uL Hgb 10.2 L 10.2 L (11.4-16.0) gm/dL Hct 31.2 L 30.2 L (34.0-46.0) % Lymphocytes # 0.6 L (1.0-4.8) k/uL ABG pH (7.35-7.45) ABG pCO2 47 H (35-45) mmHg ABG pO2 147 H (83-108) mmHg ABG HCO3 26 H (21-25) mmol/L ABG Total CO2 28 H (19-24) mmol/L ABG O2 Saturation 99.2 H (94-97) % BUN (7-17) mg/dL Creatinine (0.52-1.04) mg/dL Glucose (74-99) mg/dL POC Glucose (mg/dL) (75-99) mg/dL 05/23/19 05/23/19 Range/Units 04:10 07:00 RBC (3.80-5.40) m/uL Hgb (11.4-16.0) gm/dL Hct (34.0-46.0) % Lymphocytes # (1.0-4.8) k/uL ABG pH (7.35-7.45) ABG pCO2 (35-45) mmHg ABG pO2 (83-108) mmHg ABG HCO3 (21-25) mmol/L ABG Total CO2 (19-24) mmol/L ABG O2 Saturation (94-97) % BUN 34 H (7-17) mg/dL Creatinine 1.34 H (0.52-1.04) mg/dL Glucose 152 H (74-99) mg/dL POC Glucose (mg/dL) 142 H (75-99) mg/dL Microbiology - Last 24 Hours (Table) 05/18/19 17:53 Blood Culture - Preliminary Blood No Growth after 96 hours 05/19/19 00:01 Stool Culture - Final Stool Assessment and Plan Assessment: #1 nonoliguric acute kidney injury secondary to ischemic ATN from low blood pressures. Baseline creatinine 1.0-1.5 MG per DL. #2 septic shock resolved. Suspected infectious colitis. #3 chronic kidney disease stage III secondary to nephrosclerosis with a baseline creatinine of 1.0-1.5 MG per DL. #4 low normal blood pressures, better. #5 A. fib with RVR #6, complicated diabetes on insulin. #7 metabolic acidosis resolved off bicarb drip. #8 edema Plan: #1 renal function continue to improve. On Lasix 20 mg IV #2 monitor renal function closely #3 avoid nephrotoxic agents and hypotensive episodes.
[2019-05-23] MEDS: GABAPENTIN 300 MG CAP PO SCH (10:19)
[2019-05-23] MEDS: SODIUM CHLORIDE 0.9% 1,000 ML IV SCH (10:23)
--- NOTE | 2019-05-23 10:42 | PN ---
PROGRESS NOTE Mrs. Thorne is a 78-year-old female with known history of coronary artery disease status post coronary artery bypass grafting, aortic valve replacement, history of atrial fibrillation, who presented with abdominal discomfort and infectious process. She is feeling better today. Her breathing is better. She denies any symptoms of chest pain. She denies any dizziness. She feels stronger and she is more awake and alert. Yesterday, she had a long pause. Her diarrhea is better. She is in atrial fibrillation with variable rate at this point, but no evidence of significant bradycardia or tachycardia anymore. She continues to be on amiodarone 200 mg daily, Eliquis 5 mg twice a day, aspirin 81 mg daily, Lipitor 10 mg daily, Lasix 20 mg IV daily, metoprolol tartrate 25 mg twice a day. PHYSICAL EXAMINATION: Blood pressure 137/50 with a heart rate in the 90s. LUNGS: Clear. HEART: Irregularly irregular, S1, S2. No S3 with systolic murmur. No diastolic murmur. No rub. ABDOMEN: Soft, nontender. EXTREMITIES: With 1+ edema bilaterally. LAB DATA: Lab data revealed a BUN and creatinine of 34 and 1.34, improved compared to yesterday. Potassium 4.3, hemoglobin of 10.2. IMPRESSION: 1. Abdominal discomfort with diarrhea, improving. 2. Status post coronary artery bypass grafting with aortic valve replacement. 3. Atrial flutter/fibrillation, anticoagulated with episode of long pause yesterday. 4. Renal function improving. 5. Change in mental status improving. 6. Hypotension is resolved. 7. Pulmonary hypertension. RECOMMENDATION: I will hold her beta vale at this time. Continue the rest of her medical regimen. Follow her renal function. Increase her level of activity. I will check her thyroid function test. If she has further pauses, then a permanent pacemaker may be indicated. MMODL / IJN: [id number] /
[2019-05-23 11:55] LABS: Glucose,Whole Blood 216 mg/dL (75-99)
--- NOTE | 2019-05-23 14:44 | P.PN ---
Subjective Progress Note Date: 05/23/19 Patient is 78-year-old female with a PMH of coronary artery disease status post CABG, aortic valve replacement, paroxysmal atrial fibrillation (on Eliquis), diastolic congestive heart failure, diabetes mellitus, hypertension, hyperlipidemia, and Parkinson's disease was brought into the ED due to multiple episodes of nonbloody diarrhea. The patient was noted to be in severe sepsis in the emergency room, with CT abdomen showing findings consistent with ischemic/inflammatory colitis. She was given fluid resuscitation along with IV antibiotics and was admitted to the medical ICU. She was also noted to have acute kidney injury, and severe lactic acidosis at 9 which subsequently resolved. The patient had persistent hypotension following admission to the ICU for which she was started on a Levophed infusion yesterday. Overnight on 05/19, the patient was noted to have altered mentation with concerns for possible CVA. A code stroke was activated. Neurology evaluated the patient and recommended that she likely has altered mentation due to a metabolic encephalopathy secondary to sepsis and acute kidney injury. Carotid duplex along with a CT brain were obtained which were unremarkable. Nephrology was also consulted and recommended that the patient's NICA was likely due to severe dehydration from diarrhea. The patient's mental status was noted to have worsened yesterday. ABG revleaed hypercapnia and the patient was placed on BiPAP after which her mental status quickly improved. The patien was also noticed to have worsening weakness, more pronounced of the LEs for which a Neurology follow-up has been requested. She was seen and examined in the MICU at the bedside on 05/23. She continues to have intermittent diarrhea. The patient was on BiPAP during the interview, with family at the bedside. She continued to be AAOX2 (similar to baseline) and denied abdominal pain, nausea, vomiting, fever, or chills. Objective - Vital Signs Vital signs: Vital Signs Temp 97.5 F L 05/23/19 12:00 Pulse 92 05/23/19 14:00 Resp 20 05/23/19 14:00 BP 117/57 05/23/19 11:00 Pulse Ox 96 05/23/19 14:00 Intake & Output 05/22/19 05/23/19 05/23/19 18:59 06:59 18:59 Intake Total 1180 580 320 Output Total 1235 1675 1050 Balance -55 -1095 -730 Weight 105.4 kg Intake: IV 580 580 320 Piperacillin-Tazobactam 3 100 100 .375 gm In Sodium Chloride 0.9% 100 ml @ 25 mls/hr IVPB Q12HR [facility] Rx #:[id number] Sodium Chloride 0.9% 1, 480 480 320 000 ml @ 40 mls/hr IV . Q24H [facility] Rx#:[id number] Intake, IV Titration 100 Amount Piperacillin-Tazobactam 3 100 .375 gm In Sodium Chloride 0.9% 100 ml @ 25 mls/hr IVPB Q8HR [facility] Rx# :[id number] Oral 500 Output: Urine 1233 7176 1050 Other: Voiding Method Indwelling Catheter Indwelling Catheter Indwelling Catheter # Bowel Movements 1 2 1 ABP, PAP, CO, CI - Last Documented Arterial Blood Pressure 135/50 - Exam General: Elderly female, in no acute distress, appears stated age, obese, on BiP AP HEENT: NC/AT, anicteric sclerae, moist conjunctiva, no lid-lag, PERRLA Cardiovascular: Irregularly irregular, grade 3 systolic murmur appreciated, no rubs, or gallops Lungs: Clear to auscultation, normal respiratory effort, no accessory muscle use Abdominal: Soft, non-tender, non-distended, no guarding, rebound, or rigidity Skin: Warm, dry Extremities: Some anasarca, no contractures Psychiatric: Alert, awake, oriented to person and place only Neuro: CN II-XII grossly intact, Strength 4/5 in upper extremities lyla, strength 2/5 of lyla LEs, Speech intact, Sensation to light touch grossly intact throughout - Labs CBC & Chem 7: 05/23/19 04:10 05/23/19 04:10 Labs: Abnormal Lab Results - Last 24 Hours (Table) 05/22/19 05/22/19 05/22/19 Range/Units 14:16 14:18 17:05 RBC (3.80-5.40) m/uL Hgb (11.4-16.0) gm/dL Hct (34.0-46.0) % Lymphocytes # (1.0-4.8) k/uL ABG pH 7.28 L (7.35-7.45) ABG pCO2 58 H (35-45) mmHg ABG pO2 115 H (83-108) mmHg ABG HCO3 28 H (21-25) mmol/L ABG Total CO2 29 H (19-24) mmol/L ABG O2 Saturation 98.2 H (94-97) % BUN (7-17) mg/dL Creatinine (0.52-1.04) mg/dL Glucose (74-99) mg/dL POC Glucose (mg/dL) 183 H 175 H (75-99) mg/dL TSH (0.465-4.680) mIU/L 05/22/19 05/22/19 05/22/19 Range/Units 20:19 22:12 22:12 RBC 3.24 L (3.80-5.40) m/uL Hgb 10.2 L (11.4-16.0) gm/dL Hct 31.2 L (34.0-46.0) % Lymphocytes # 0.6 L (1.0-4.8) k/uL ABG pH (7.35-7.45) ABG pCO2 (35-45) mmHg ABG pO2 (83-108) mmHg ABG HCO3 (21-25) mmol/L ABG Total CO2 (19-24) mmol/L ABG O2 Saturation (94-97) % BUN 36 H (7-17) mg/dL Creatinine 1.44 H (0.52-1.04) mg/dL Glucose 217 H (74-99) mg/dL POC Glucose (mg/dL) 209 H (75-99) mg/dL TSH (0.465-4.680) mIU/L 05/22/19 05/23/19 05/23/19 Range/Units 22:17 04:10 04:10 RBC 3.22 L (3.80-5.40) m/uL Hgb 10.2 L (11.4-16.0) gm/dL Hct 30.2 L (34.0-46.0) % Lymphocytes # (1.0-4.8) k/uL ABG pH (7.35-7.45) ABG pCO2 47 H (35-45) mmHg ABG pO2 147 H (83-108) mmHg ABG HCO3 26 H (21-25) mmol/L ABG Total CO2 28 H (19-24) mmol/L ABG O2 Saturation 99.2 H (94-97) % BUN 34 H (7-17) mg/dL Creatinine 1.34 H (0.52-1.04) mg/dL Glucose 152 H (74-99) mg/dL POC Glucose (mg/dL) (75-99) mg/dL TSH (0.465-4.680) mIU/L 05/23/19 05/23/19 05/23/19 Range/Units 04:10 07:00 11:43 RBC (3.80-5.40) m/uL Hgb (11.4-16.0) gm/dL Hct (34.0-46.0) % Lymphocytes # (1.0-4.8) k/uL ABG pH (7.35-7.45) ABG pCO2 (35-45) mmHg ABG pO2 (83-108) mmHg ABG HCO3 (21-25) mmol/L ABG Total CO2 (19-24) mmol/L ABG O2 Saturation (94-97) % BUN (7-17) mg/dL Creatinine (0.52-1.04) mg/dL Glucose (74-99) mg/dL POC Glucose (mg/dL) 142 H 216 H (75-99) mg/dL TSH <0.015 L (0.465-4.680) mIU/L Microbiology - Last 24 Hours (Table) 05/18/19 17:53 Blood Culture - Preliminary Blood No Growth after 96 hours 05/19/19 00:01 Stool Culture - Final Stool Assessment and Plan Plan: Septic shock, resolved, likely secondary to infectious colitis -Levophed discontinued -Continue with Zosyn and Flagyl for now -Cultures negative to date -Leukocytosis resolved -Gentle hydration AMS, likely secondary to hypercapnia w/ NICA and sepsis now resolved -C/w BiPAP nocturnal and prn -Carotid duplex, CT head and Neurology consultation reviewed Weakness -Concerns regarding possible GBS in setting of recent influenza vaccine administration (2 days prior to admission) vs GI culprit (ie compylobacter) -Neurology f/u w/ possible LP -Will hold Eliquis NICA, improved -Nephrology recs appreciated -C/w gentle hydration Afib w/ RVR -Hold Eliquis for possible LP. C/w Amiodarone PO -Cardiology recs appreciated Normocytic anemia -Likely secondary to IVFs along with phlebotomy and acute stressors -Stable DM Type 2 -Increase Levemir to 20 U qhs and TON with FS Hypothyroidism -C/w home dose Levothyroxine DVT prophylaxis -Eliquis Discussed with: Patient Anticipated discharge date: 2-[address]: [facility] A total of 35 minutes was spent on the care of this complex patient more than 50% of the time was spent in counseling and care coordination.
[2019-05-23 16:59] LABS: Glucose,Whole Blood 235 mg/dL (75-99)
[2019-05-23] MEDS: ATORVASTATIN 10 MG TAB PO SCH (20:43)
[2019-05-23 20:45] LABS: Glucose,Whole Blood 232 mg/dL (75-99)
[2019-05-23] MEDS: INSULIN DETEMIR (LEVEMIR) 100 UNIT/ML SYR SQ SCH (20:45)
[2019-05-24] MEDS: metroNIDAZOLE 500 MG TAB PO SCH ×3 (00:25→18:39)
[2019-05-24] MEDS: PIPERACILLIN-TAZOBACTAM 3.375 GM in SODIUM CHLORIDE 0.9% 100 ML IVPB SCH ×3 (00:27→17:20)
[2019-05-24] MEDS: NOREPINEPHRINE 4 MG in SODIUM CHLORIDE 0.9% 250 ML IV SCH ×2 (00:32→17:19)
[2019-05-24 05:19] LABS: Calcium 8.5 mg/dL (8.4-10.2); Potassium 4.3 mmol/L (3.5-5.1)
[2019-05-24 06:58] LABS: Glucose,Whole Blood 129 mg/dL (75-99)
[2019-05-24 07:51] LABS: Basophils # (A) 0.1 k/uL (0-0.2); Basophils % (A) 1 %; Eosinophils # (A) 0.2 k/uL (0-0.7); Eosinophils % (A) 3 %; HCT 30.5 % (34.0-46.0); Hypochromasia Slight; Lymphocytes # (A) 0.7 k/uL (1.0-4.8); Lymphocytes % (A) 11 %; MCH 31.6 pg (25.0-35.0); MCHC 32.7 g/dL (31.0-37.0); MCV 96.6 fL (80.0-100.0); Mean Platelet Volume 7.6; Monocytes # (A) 0.5 k/uL (0-1.0); Monocytes % (A) 8 %; Neutrophils % (A) 75 %; Platelet Count 213 k/uL (150-450); RBC 3.15 m/uL (3.80-5.40); RDW 12.6 % (11.5-15.5); WBC 6.7 k/uL (3.8-10.6)
[2019-05-24] MEDS: INSULIN ASPART (NovoLOG) 100 UNIT/ML VIAL SQ SCH ×4 (07:55→20:45)
[2019-05-24] MEDS: LEVOTHYROXINE 137 MCG TAB PO SCH (08:26)
[2019-05-24] MEDS: CARBIDOPA-LEVODOPA 25-100 MG 1 EACH TAB PO SCH ×4 (08:27→21:32)
[2019-05-24] MEDS: ASPIRIN 81 MG PO SCH (08:27)
[2019-05-24] MEDS: AMIODARONE 200 MG TAB PO SCH (08:27)
[2019-05-24] MEDS: GABAPENTIN 300 MG CAP PO SCH (08:28)
[2019-05-24] MEDS: FUROSEMIDE 10 MG/ML 2 ML VIAL IV SCH (08:28)
[2019-05-24] MEDS: PANTOPRAZOLE 40 MG TABLET PO SCH (08:28)
--- NOTE | 2019-05-24 08:30 | XR ---
EXAMINATION TYPE: XR chest 1V DATE OF EXAM: 05/24/2019 COMPARISON: 05/23/2019 HISTORY: Shortness of breath TECHNIQUE: Single frontal view of the chest is obtained. FINDINGS: Degenerative change of the spine. Postoperative changes seen. No pneumothorax or overt david lure. Subsegmental changes at the left lung base are improved. IMPRESSION: Improving left lower lobe atelectasis or infiltrate.
[2019-05-24] MEDS: SODIUM CHLORIDE 0.9% 1,000 ML IV SCH (09:40)
--- NOTE | 2019-05-24 10:45 | CDI ---
Documentation Clarification Form Date: May 24, 2019 CDS: Lilliana Lo, CCS, CCDS Admit Date: 05/18/2039 Patient Name: Violet Thorne Discharge Date: ATTENTION: The Clinical Documentation Specialists (CDI) and [facility] Coding Staff appreciate your assistance in clarifying documentation. Please respond to the clarification below the line at the bottom and electronically sign. The CDI & [facility] Coding staff will review the response and follow-up if needed. Please note: Queries are made part of the Legal Health Record. If you have any questions, please contact the author of this message via ITS. Dear Dr. Maria Del Carmen Berry: Per the 05/23 Cardiology consult: "Atrial flutter/fibrillation, anticoagulated with episode of long pause yesterday." History/Risk factors: History of atrial flutter status post DON & cardioversion. Extensive cardiac history including CAD status post CABG & has bioprosthetic heart valve. Hypertension with diastolic CHF & CKD III. Clinical Indicators: Presented with diarrhea & vomiting, diagnosed with possible infectious gastroenteritis. Septic in septic shock requiring fluid resuscitation, NICA w/ATN & acute hypoxic & hypercapnic respiratory failure. EKG/telemetry: R 76 nsr. Telemetry showing frequent PACs & PVCs. Treatment: ICU admission, IV fluid bolus x3, IV fluid rate 100, IV PPI, IV Zofran, IV Zosyn, IV Insulin, IV Lasix, IV Amiodarone, IV Heparin, Beta Blockers held, IV Mag Sulfate, O2 2-3L nc alternating w/BiPAP prn. In your professional opinion, in order to capture the severity of condition; can you please clarify the type of Atrial Flutter & Atrial Fibrillation if known? Atrial Flutter: o Typical/Type I o Atypical/Type II o Other, please specify o Unable to determine XXX Atrial Fibrillation: o Chronic atrial fibrillation o Persistent atrial fibrillation XXX o Paroxysmal atrial fibrillation o Other, please specify o Unable to determine (Last Revision: November 2017) MTDD
--- NOTE | 2019-05-24 11:00 | PN ---
PROGRESS NOTE This is a lady with chronic atrial fibrillation, CAD, previous aortic valve replacement and presented with abdominal pain and is a question of abdominal sepsis. While she was here, she had one pause and she is being monitored closely. There are no further pauses. Her rhythm appears to be atrial fib rate, control is decent. However, I noticed that her TSH level is low and free T4 is at the high end of normal. She may have a lumbar puncture because of concern that she may have some Guillian-Burlington syndrome-type picture. Neurology is coordinating this. From a cardiac standpoint I am recommending that we can discontinue her aspirin and decrease the Synthroid. She is currently on Eliquis and aspirin together. She appears to be hemodynamically stable and resting comfortably without symptoms at this time. Her beta vale has been held. I will decrease her amiodarone also to 200 mg daily. We will decrease the levothyroxine from 137 to 112 mcg daily. Her Eliquis has been held in view of the lumbar puncture. I am asking that we hold the aspirin also at this time. Patient is hemodynamically more stable. There is a question of sepsis and also neurological issues and lumbar puncture is being considered. Overall prognosis remains guarded. Blood pressure is 150/70, pulse rate is about 98-100 per minute, irregular. There is JVD of 1 cm, no carotid bruit. S1-S2 heard normally with a systolic murmur audible at the base. Lungs revealed diminished air entry. Abdomen is soft. Lower extremities reveal diminished pulses. There is edema bilaterally of mild to moderate. Neurologically, patient is not able to move her lower extremities very well. There is generalized weakness. Recommendations include that we hold aspirin for now. Eliquis is being held. She may have lumbar puncture today. Can resume anticoagulation as soon as cleared by Neurology. MMODL / IJN: [id number] /
--- NOTE | 2019-05-24 11:02 | P.PN ---
Subjective Patient is seen in follow-up for acute kidney injury. Renal function continues to improve. Maintain on Lasix 20 mg once daily. She is nonoliguric. Heart rate is controlled. No vomiting or diarrhea. Vital signs are stable. General: The patient appeared well nourished and normally developed. HEENT: Head exam is unremarkable. Neck is without jugular venous distension. LUNGS: Lungs are clear to auscultation and percussion. Breath sounds decreased. HEART: Rate and Rhythm are regular. First and second heart sounds normal. No murmurs, rubs or gallops. ABDOMEN: Abdominal exam reveals normal bowel sounds. Non-tender and non- distended. No evidence of peritonitis. EXTREMITITES: 1+ edema. Objective - Vital Signs Vital signs: Vital Signs Temp 97.6 F 05/24/19 04:00 Pulse 100 05/24/19 10:00 Resp 18 05/24/19 10:00 BP 124/60 05/24/19 05:00 Pulse Ox 96 05/24/19 10:00 Intake & Output 05/23/19 05/24/19 05/24/19 18:59 06:59 18:59 Intake Total 520 680 160 Output Total 1675 1250 575 Balance -1155 -570 -415 Weight 105.3 kg Intake: IV 520 440 160 Sodium Chloride 0.9% 1, 520 440 160 000 ml @ 40 mls/hr IV . Q24H [facility] Rx#:[id number] Oral 240 Output: Urine 1675 1250 575 Other: Voiding Method Indwelling Catheter Indwelling Catheter Indwelling Catheter # Bowel Movements 2 1 ABP, PAP, CO, CI - Last Documented Arterial Blood Pressure 152/58 - Labs CBC & Chem 7: 05/24/19 04:30 05/24/19 04:35 Labs: Abnormal Lab Results - Last 24 Hours (Table) 05/23/19 05/23/19 05/23/19 Range/Units 04:10 11:43 16:48 RBC (3.80-5.40) m/uL Hgb (11.4-16.0) gm/dL Hct (34.0-46.0) % Lymphocytes # (1.0-4.8) k/uL BUN (7-17) mg/dL Creatinine (0.52-1.04) mg/dL Glucose (74-99) mg/dL POC Glucose (mg/dL) 216 H 235 H (75-99) mg/dL TSH <0.015 L (0.465-4.680) mIU/L 05/23/19 05/24/19 05/24/19 Range/Units 20:33 04:30 04:35 RBC 3.15 L (3.80-5.40) m/uL Hgb 10.0 L (11.4-16.0) gm/dL Hct 30.5 L (34.0-46.0) % Lymphocytes # 0.7 L (1.0-4.8) k/uL BUN 26 H (7-17) mg/dL Creatinine 1.09 H (0.52-1.04) mg/dL Glucose 124 H (74-99) mg/dL POC Glucose (mg/dL) 232 H (75-99) mg/dL TSH (0.465-4.680) mIU/L 05/24/19 Range/Units 06:47 RBC (3.80-5.40) m/uL Hgb (11.4-16.0) gm/dL Hct (34.0-46.0) % Lymphocytes # (1.0-4.8) k/uL BUN (7-17) mg/dL Creatinine (0.52-1.04) mg/dL Glucose (74-99) mg/dL POC Glucose (mg/dL) 129 H (75-99) mg/dL TSH (0.465-4.680) mIU/L Microbiology - Last 24 Hours (Table) 05/18/19 17:53 Blood Culture - Preliminary Blood No Growth after 120 hours 05/19/19 00:01 Stool Culture - Final Stool Assessment and Plan Plan: Assessment: 1. Acute kidney injury secondary to ischemic ATN secondary to hypotension. Renal function improving. Creatinine 1.09 today. 2. A. fib with RVR maintained on oral amiodarone. 3. Chronic kidney disease stage III secondary to nephrosclerosis with baseline creatinine in the range of 1-1.5. 4. Volume overload maintained on Lasix. Improving. 5. Generalized weakness. Jennifer-Whitwell being ruled out. 6. Insulin-dependent diabetes mellitus. 7. Metabolic acidosis secondary to acute kidney injury. Resolved. Plan: Maintain Lasix 20 mg IV daily. Avoid nephrotoxins. Continue to monitor renal function and urine output.
--- NOTE | 2019-05-24 11:39 | P.PN ---
Subjective Progress Note Date: 05/24/19 Patient is 78-year-old female with a PMH of coronary artery disease status post CABG, aortic valve replacement, paroxysmal atrial fibrillation (on Eliquis), diastolic congestive heart failure, diabetes mellitus, hypertension, hyperlipidemia, and Parkinson's disease was brought into the ED due to multiple episodes of nonbloody diarrhea. The patient was noted to be in severe sepsis in the emergency room, with CT abdomen showing findings consistent with ischemic/inflammatory colitis. She was given fluid resuscitation along with IV antibiotics and was admitted to the medical ICU. She was also noted to have acute kidney injury, and severe lactic acidosis at 9 which subsequently resolved. The patient had persistent hypotension following admission to the ICU for which she was started on a Levophed infusion yesterday. Overnight on 05/19, the patient was noted to have altered mentation with concerns for possible CVA. A code stroke was activated. Neurology evaluated the patient and recommended that she likely has altered mentation due to a metabolic encephalopathy secondary to sepsis and acute kidney injury. Carotid duplex along with a CT brain were obtained which were unremarkable. Nephrology was also consulted and recommended that the patient's NICA was likely due to severe dehydration from diarrhea. The patient's mental status was noted to have worsened yesterday. ABG revealed hypercapnia and the patient was placed on BiPAP after which her mental status quickly improved. The patient was also noticed to have worsening weakness, more pronounced of the LEs for which a Neurology follow-up has been requested. The patient was seen in the MICU on 05/24. The patient denied active complaints. She continues to be AAOX2. She had 1 BM overnight, and 1 this morning, watery. She denied abdominal pain, chest pain, fever, or chills. Objective - Vital Signs Vital signs: Vital Signs Temp 97.6 F 05/24/19 04:00 Pulse 100 05/24/19 10:00 Resp 18 05/24/19 10:00 BP 124/60 05/24/19 05:00 Pulse Ox 96 05/24/19 10:00 Intake & Output 05/23/19 05/24/19 05/24/19 18:59 06:59 18:59 Intake Total 520 680 160 Output Total 1567 1250 575 Balance -1155 -570 -415 Weight 105.3 kg Intake: IV 520 440 160 Sodium Chloride 0.9% 1, 520 440 160 000 ml @ 40 mls/hr IV . Q24H [facility] Rx#:[id number] Oral 240 Output: Urine 1675 1250 575 Other: Voiding Method Indwelling Catheter Indwelling Catheter Indwelling Catheter # Bowel Movements 2 1 ABP, PAP, CO, CI - Last Documented Arterial Blood Pressure 152/58 - Exam General: Elderly female, in no acute distress, appears stated age, obese HEENT: NC/AT, anicteric sclerae, moist conjunctiva, no lid-lag, PERRLA Cardiovascular: Irregularly irregular, grade 3 systolic murmur appreciated, no rubs, or gallops Lungs: Clear to auscultation, normal respiratory effort, no accessory muscle use Abdominal: Soft, non-tender, non-distended, no guarding, rebound, or rigidity Skin: Warm, dry Extremities: Some anasarca, no contractures Psychiatric: Alert, awake, oriented to person and place only Neuro: CN II-XII grossly intact, Strength 4/5 in upper extremities lyla, strength 2/5 of lyla LEs, Speech intact, Sensation to light touch grossly intact throughout - Labs CBC & Chem 7: 05/24/19 04:30 05/24/19 04:35 Labs: Abnormal Lab Results - Last 24 Hours (Table) 05/23/19 05/23/19 05/23/19 Range/Units 11:43 16:48 20:33 RBC (3.80-5.40) m/uL Hgb (11.4-16.0) gm/dL Hct (34.0-46.0) % Lymphocytes # (1.0-4.8) k/uL BUN (7-17) mg/dL Creatinine (0.52-1.04) mg/dL Glucose (74-99) mg/dL POC Glucose (mg/dL) 216 H 235 H 232 H (75-99) mg/dL 05/24/19 05/24/19 05/24/19 Range/Units 04:30 04:35 06:47 RBC 3.15 L (3.80-5.40) m/uL Hgb 10.0 L (11.4-16.0) gm/dL Hct 30.5 L (34.0-46.0) % Lymphocytes # 0.7 L (1.0-4.8) k/uL BUN 26 H (7-17) mg/dL Creatinine 1.09 H (0.52-1.04) mg/dL Glucose 124 H (74-99) mg/dL POC Glucose (mg/dL) 129 H (75-99) mg/dL Microbiology - Last 24 Hours (Table) 05/18/19 17:53 Blood Culture - Preliminary Blood No Growth after 120 hours 05/19/19 00:01 Stool Culture - Final Stool Assessment and Plan Plan: Diarrhea, septic shock resolved, likely secondary to infectious colitis -Continue with Zosyn and Flagyl for now -Cultures negative to date -Leukocytosis resolved AMS, likely secondary to hypercapnia w/ NICA and sepsis now resolved -C/w BiPAP nocturnal and prn -Carotid duplex, CT head and Neurology consultation reviewed Weakness -Concerns regarding possible GBS in setting of recent influenza vaccine administration (2 days prior to admission) vs GI culprit (ie compylobacter) -Neurology f/u w/ possible LP -Will hold Eliquis NICA, improved -Nephrology recs appreciated -C/w Lasix daily Afib w/ RVR -Hold Eliquis for possible LP. C/w Amiodarone PO -Cardiology recs appreciated Normocytic anemia -Likely secondary to IVFs along with phlebotomy and acute stressors -Stable DM Type 2 -C/w Levemir to 20 U qhs and TON with FS Hypothyroidism -C/w home dose Levothyroxine DVT prophylaxis -Eliquis Discussed with: Patient Anticipated discharge date: 2-[address]: [facility] A total of 35 minutes was spent on the care of this complex patient more than 50% of the time was spent in counseling and care coordination.
[2019-05-24 12:10] LABS: Glucose,Whole Blood 230 mg/dL (75-99)
--- NOTE | 2019-05-24 12:23 | P.PN ---
Subjective Progress Note Date: 05/24/19 Principal diagnosis: Acute gastroenteritis, and acute hypercapnic respiratory failure. This is a pleasant 78-year-old female patient with known history of coronary artery disease, previous bypass surgery, previous aortic valve replacement, along with history of chronic atrial fibrillation and diabetes mellitus and hypothyroidism. The patient has been followed up by Dr. Berry on outpatient basis. The patient acutely became ill this morning. She woke up and she developed nausea and emesis and watery diarrhea which is going on for now. The patient is passing significant amount of liquidy bowel movements. No melanotic. No bright red blood per rectum. No hematemesis. No abdominal pain or distention. No channel history. No ingestion of any contaminated material or food products. No sick contacts. She lives with her daughter and her daughter is healthy and she did not have any gastrointestinal symptoms. She's been eating home food Throughout the past month. No recent antibiotic intake. Reports history of inflammatory bowel disease or infectious colitis. No history of any inflammatory bowel disease.In the ED, the patient a white cell count of 21. The patient and acute kidney injury with a creatinine of 2.1. Lactic acid level was at 9. Potassium level was at 6.0. The patient was found to be borderline hypotensive with a systolic blood pressure in the mid 80s. The patient was given a total of 3 L of IV fluids and the fourth is infusing for no w. The patient is also on a maintenance 130 mL an hour normal saline. Resume amount of urine output. She underwent a straight cathetered UA essentially negative with +1 protein. Stool for C. diff is negative. Blood sugar was elevated at 3 on 35. Nevertheless the acetone was negative. She is awake and alert. She is following commands and answering questions. She is currently on normal saline at the rate of 1 30 mL an hour. No fever. No chills. No night sweats. No other complaints otherwise for now.On today's evaluation of 05/19/2019 I'm seeing this patient for a follow-up. Clinically the patient is having liquidy diarrhea. Hemodynamically she is still having the low blood pressure since earlier this morning. The patient was given a total of 6l fluids and the patient was receiving normal saline infusion as maintenance at the rate of 130 mL an hour. The patient was furthermore started on low dose norepinephrine infusion today and this was initiated to maintain a mean artery pressure above 65. The patient is having adequate urine output. Lactic acid levels are improving. White cell count is dropped. Note that the lactic acid level is down to 2.6. The creatinine is at 2.4 for now. The follow-up white cell count is down to 17 from a baseline of 21.9. Stool for C. diff was negative. Blood cultures still pending. The stool culture also pending. CAT scan of the abdomen and pelvis was done yesterday showed moderate circumferential mural thickening of the entire length of the distal half of the transverse colon and descending colon and the sigmoid colon consistent with inflammatory versus infectious colitis. No pneumoperitoneum. The patient is currently on IV Zosyn. No nausea. No vomiting. No abdominal pain. Altered mentation. No fever. No chills. The patient is requesting some oral intake. 05/23/2019, the patient is awake and alert. Note that yesterday, the patient had some cloudiness in her mentation. Her blood gases was done and showed some mild hypercapnic respiratory acidosis. She was placed on the BiPAP immediately she improved. She is profoundly weak. His extensive weakness in her upper and lower extremities. I think she is somewhat hypoventilating also. The chest x- rays clear. Would not having any issues with her oxygenation and she does well and states about 2 by nasal cannula. Nevertheless, she is having issues with ventilation. And this obviously brings up issues for hypoventilation. Her diarrhea is still present on and off. Over the less, she is well resuscitated. Her white cell count is down to 8.1. The renal function continues to improve the creatinine is down to 1.34. No altered mentation this morning pH was awake and she was able to follow commands and answering questions. Fever. No chills. He is currently on a BiPAP at a pressure of 12/5 cm of water with an FiO2 of 35%. Noted all of the cultures are negative. Upon further questioning, I was told that the patient was given a flu shot just a day or 2 prior to her presentation. She has underlying Parkinson's disease. Patient was reevaluated today on 05/24/2019, patient remains weak, she remains a bit confused, asking to be sent home. Continues to have mild hypercapnic respiratory acidosis, was on BiPAP earlier, and I switched the patient to a nasal cannula however advised the respirator therapist to watch carefully and to do a blood gas of the patient develops any worsening respiratory status or change in mental status. I asked the neurologist to evaluate the patient today again since Dr. Galindo was concerned about the possibility of Guillain-Hernandez syndrome. Then neurological evaluation is being performed as I dictate this note. And I discussed the condition of the patient with the neurologist on the case. CBC is relatively normal electrolytes are basically normal blood sugar is 230 this morning. Last ABG showed a pO2 of 147 pCO2 of 47 pH of 7.35, at one point he pCO2 was as high as 58 before she was placed on BiPAP. Yes I am just as concerned as Dr. Galindo is regarding the possibility of GBS since the patient presented with profound gastroenteritis and she did receive the flu vaccine 2 days prior to her presentation. Objective - Vital Signs Vital signs: Vital Signs Temp 97.6 F 05/24/19 04:00 Pulse 100 05/24/19 10:00 Resp 18 05/24/19 10:00 BP 124/60 05/24/19 05:00 Pulse Ox 96 05/24/19 10:00 Intake & Output 05/23/19 05/24/19 05/24/19 18:59 06:59 18:59 Intake Total 520 680 160 Output Total 1675 1250 575 Balance -1155 -570 -415 Weight 105.3 kg Intake: IV 520 440 160 Sodium Chloride 0.9% 1, 520 440 160 000 ml @ 40 mls/hr IV . Q24H [facility] Rx#:[id number] Oral 240 Output: Urine 1675 1250 575 Other: Voiding Method Indwelling Catheter Indwelling Catheter Indwelling Catheter # Bowel Movements 2 1 ABP, PAP, CO, CI - Last Documented Arterial Blood Pressure 152/58 - Exam Physical Exam: Revealed a 78-year-old female on BiPAP, switch to a nasal cannula after my evaluation. She was on IPAP of 12 and EPAP of 5 and FiO2 of 35%. Patient is noted to be nonlabored on nasal cannula. Head: Atraumatic, normocephalic. HEENT: PERRLA, EOMI, no icterus. [Neck is supple.] [No neck masses.] [No thyromegaly.] [No JVD.] Chest: [Diminished breath sounds at the bases no crackles or rhonchi or wheezes. Cardiac Exam: [Normal S1 and S2, no S3 gallop, 2/6 systolic murmur thought the precordium..] Abdomen: [Soft, nontender, no megaly, no rebound, no guarding, normal bowel sounds.] Extremities: [No clubbing, no edema, no cyanosis.] Neurological Exam: Patient is noted to be generally weak, alert, oriented 3, intermittently confused according the nurses. Follows simple instructions. Psychiatric: Normal mood, blunt affect, questionable mental status. Intermittently asking to be discharged home. - Labs CBC & Chem 7: 05/24/19 04:30 05/24/19 04:35 Labs: Abnormal Lab Results - Last 24 Hours (Table) 05/23/19 05/23/19 05/24/19 Range/Units 16:48 20:33 04:30 RBC 3.15 L (3.80-5.40) m/uL Hgb 10.0 L (11.4-16.0) gm/dL Hct 30.5 L (34.0-46.0) % Lymphocytes # 0.7 L (1.0-4.8) k/uL BUN (7-17) mg/dL Creatinine (0.52-1.04) mg/dL Glucose (74-99) mg/dL POC Glucose (mg/dL) 235 H 232 H (75-99) mg/dL 05/24/19 05/24/19 Range/Units 04:35 06:47 RBC (3.80-5.40) m/uL Hgb (11.4-16.0) gm/dL Hct (34.0-46.0) % Lymphocytes # (1.0-4.8) k/uL BUN 26 H (7-17) mg/dL Creatinine 1.09 H (0.52-1.04) mg/dL Glucose 124 H (74-99) mg/dL POC Glucose (mg/dL) 129 H (75-99) mg/dL Microbiology - Last 24 Hours (Table) 05/18/19 17:53 Blood Culture - Preliminary Blood No Growth after 120 hours 05/19/19 00:01 Stool Culture - Final Stool Assessment and Plan Assessment: Impression: 1 acute severe gastroenteritis. 2 acute hypercapnic respiratory failure and generalized weakness, hence the possibility of Guillain-Hernandez syndrome is in the differential, hence I recommended reevaluation by neurology. 3 acute kidney injury secondary to hypotension and acute tubular necrosis, po ssibly secondary to hypovolemia, patient presented with severe gastroenteritis. 4 history of aortic valve disease and previous replacement 5 secondary pulmonary hypertension 6 chronic atrial fibrillation, being followed by cardiology 7 Parkinson's disease 8 episodes of altered mental status requiring BiPAP for elevated pCO2 and hypercapnia, today she was switched to BiPAP to nasal cannula. 9 hypothyroidism 10 hyperlipidemia 11 type 2 diabetes 12 history of coronary artery disease and previous CABG Recommendation: Continue IV fluids, continue to monitor respiratory status, neurology to reevaluate, patient is a good set up for GBS, however this is yet to be confirmed. Continue cardiac meds including amiodarone continue empiric antibiotics continue Flagyl and Zosyn. Continue Sinemet for her underlying Parkinson's disease. We'll continue to follow closely in the ICU. Prognosis remains definitely guarded. Cardiology is on the case addressing her atrial fibrillation and cardiac issues. We'll continue to follow. Discussed her condition with the different consultants including cardiology and urology. Time with Patient: Less than 30
--- NOTE | 2019-05-24 14:04 | P.PN ---
Progress Note - Text Progress Note Date: 05/24/19 REFERRING PHYSICIAN: Dr. Galindo HISTORY OF PRESENT ILLNESS: Thank you for allowing me to evaluate Ms. Violet Thorne. Ms. Thorne is a 78 year-old woman with PMHx of CAD s/p CABG and AVR, chronic afib on Eliquis, DM, hypothyroidism, Parkinson's Disease, initially consulted Neurology for AMS, found with metabolic encephalopathy in the setting of sepsis, reconsulting Neurology for concern of Guillain-[place]. Patient had had a flu shot a couple of days prior to admission (on 05/18/2019) and also was admitted for infective colitis with nausea, vomiting and dizziness. Patient also had issues with elevated pCO2 per business intelligence architect, and patient's bicarb since admission has ranged from 18-29. Patient denies any numbness or tingling although patient is not the most cooperative during evaluation. Previous Neuro consult note: "She is in the ICU with sepsis and an infective colitis after presenting with N/V/D. She has been requiring IVF and pressors for pressure support. She also has a lactic acidosis (improving) and renal insufficiency (worsening). Last night the RN found her to be more confused and lethargic with a question of left facial droop, so a code stroke was called. CT Head showed nil acute. She was not deemed an acute vascular intervention candidate. Patient's mental status continues to wax and wane. She does have Parkinson's with a hand tremor, but no report of other adventitious movements or seizure-like activity. Patient cannot provide much meaningful history. My historical information was obtained by discussing the case the LICENSED VETERINARY TECHNICIAN and reviewing available medical records in EMR." PAST MEDICAL HISTORY: Atrial Fibrillation, Coronary Artery Disease (CAD), Heart Failure, Diabetes Mellitus, Hyperlipidemia, Hypertension, Osteoarthritis (OA), Pneumonia, Thyroid Disorder, Leaky valve, Parkinsons, neuropathy legs, Pneumonia 2 yrs ago. Constipation PAST SURGICAL HISTORY: Aortic valve replacement with double cardiac bypass surgery(2010), bilateral cataracts removed. Cardioversion 02/05/19. Cholecystectomy, CURRENT MEDICATIONS: Sinemet, gabapentin, pantoprazole, amiodarone, insulin sliding scale, Zosyn, metronidazole, Lasix, atorvastatin, Levemir, HOME MEDICATIONS: Simvastatin, gabapentin, metformin, glipizide, Sinemet, aspirin, Lasix, levothyroxine, benazepril, Eliquis, amiodarone, metoprolol ALLERGIES: NKDA SOCIAL HISTORY: Never smoker. REVIEW OF SYSTEMS: The 14 systems are reviewed and no additional points are identified compared to the review of systems documented history and physical PHYSICAL EXAMINATION: VITAL SIGNS: T 97.6 HR 104/11 blood pressure 162/60 O2 saturation 98% via nasal cannula at 3 L GEN.: NAD, slightly grumpy but cooperative HEENT: NCAT, sclera without icterus NECK: Supple SKIN AND EXTREMITIES: Warm to touch, some LE pitting edema NEURO: MENTAL STATUS: Patient alert and oriented to self, place, time. Able to name the current president. Speech fluent, able to name and repeat, following all commands readily. CRANIAL NERVES II THROUGH XII: II: Pupils are equal and reactive to light symmetrically. No afferent pupillary defect. Visual lloyd are intact. III, IV, : No ptosis. Extraocular movements full. No nystagmus. V: Facial sensation intact from V1-3. VII. No clear facial asymmetry. VIII: Hearing intact to finger rub bilaterally. IX, X: Symmetric palate elevation. XI: Shoulder shrug intact. XII: Tongue midline without fasciculation or atrophy. MOTOR: Normal bulk/tone. Generalized weakness, able to move antigravity in b/l UE. Able to move b/l feet and knees but some difficulty with moving her thighs against gravity. per RN, patient as able to stand to move from bed to chair. SENSORY: Says "no" when asked if sensation felt normal initially and then changed to "yes." Reports decreased sensation to temperature but intact to LT and pinprick. REFLEXES: 2+ in b/l UE. No reflexes in b/l LE (patient says "I have no reflexes in my legs," and states it's been that way for years. Toes are downgoing. COORDINATION: Finger to nose intact. No dysmetria. GAIT: deferred DIAGNOSTIC TESTING: LABORATORY: WBC 6.7 hemoglobin 10.0 platelet 213 sodium 137 potassium 4.3 chloride 104 bicarb 29 BUN 26 creatinine 1.09 glucose 124 IMAGING: Echocardiogram 05/19/2019: Atrial fibrillation. LV size is normal. Moderate concentric left ventricular hypertrophy. EF 45-50%. RV is mildly enlarged. LA is mildly dilated. Normally functioning porcine bioprosthetic aortic valve. Moderate regurgitation and mild stenosis of the bioprosthetic aortic valve. CT brain without contrast 05/19/2019: Cervical atrophy. No acute intracranial abnormality. Carotid Dopplers 05/20/2019: Mild degree of prescott scale atheromatous plaquing with no sonographically evident hemodynamically significant stenosis within either visualize carotid arterial system. EEG 05/20/2019: There is an abnormal EEG with excessive background slowing whose pattern can be consistent with metabolic encephalopathy. ASSESSMENT: Ms. Thorne is a 78 year-old woman with PMHx of CAD s/p CABG and AVR, chronic afib on Eliquis, DM, hypothyroidism, Parkinson's Disease, initially consulted Neurology for AMS, found with metabolic encephalopathy in the setting of sepsis, reconsulting Neurology for concern of Guillain-[place] as patient had a recent flu shot along with being admitted for infective colitis (negative for campylobacter). At this time, patient with generalized weakness with no focality. Decreased sensation to temperature, which could be from patient's previous history of peripheral neuropathy for which patient is on gabapentin. Suspicion for Guillain-Hernandez at this time is low, but we'll obtain a formal pulmonary function test to assess pulmonary function. RECOMMENDATIONS: 1. full pulmonary function test 2. Neurology will continue to follow
[2019-05-24 17:22] LABS: Glucose,Whole Blood 188 mg/dL (75-99)
[2019-05-24] MEDS: INSULIN DETEMIR (LEVEMIR) 100 UNIT/ML SYR SQ SCH (20:45)
[2019-05-24] MEDS: ATORVASTATIN 10 MG TAB PO SCH (20:45)
[2019-05-24 20:52] LABS: Glucose,Whole Blood 258 mg/dL (75-99)
[2019-05-25] MEDS: PIPERACILLIN-TAZOBACTAM 3.375 GM in SODIUM CHLORIDE 0.9% 100 ML IVPB SCH ×4 (00:33→23:00)
[2019-05-25] MEDS: metroNIDAZOLE 500 MG TAB PO SCH ×4 (00:34→23:00)
[2019-05-25 05:42] LABS: Albumin 2.4 g/dL (3.5-5.0); Calcium 8.7 mg/dL (8.4-10.2); Potassium 4.2 mmol/L (3.5-5.1); Total Bilirubin 0.3 mg/dL (0.2-1.3); Total Protein 4.7 g/dL (6.3-8.2)
[2019-05-25 05:52] LABS: HCT 30.4 % (34.0-46.0); HGB 10.2 gm/dL (11.4-16.0); MCH 31.7 pg (25.0-35.0); MCHC 33.7 g/dL (31.0-37.0); MCV 94.1 fL (80.0-100.0); Mean Platelet Volume 6.7; Platelet Count 238 k/uL (150-450); RBC 3.23 m/uL (3.80-5.40); RDW 12.7 % (11.5-15.5); WBC 6.7 k/uL (3.8-10.6)
[2019-05-25] MEDS: NOREPINEPHRINE 4 MG in SODIUM CHLORIDE 0.9% 250 ML IV SCH ×2 (06:47→21:22)
[2019-05-25] MEDS: LEVOTHYROXINE 112 MCG TAB PO SCH ×2 (06:48→06:54)
[2019-05-25 07:06] LABS: Glucose,Whole Blood 131 mg/dL (75-99)
[2019-05-25] MEDS: INSULIN ASPART (NovoLOG) 100 UNIT/ML VIAL SQ SCH ×5 (07:09→21:16)
--- NOTE | 2019-05-25 07:40 | XR ---
EXAMINATION TYPE: XR chest 1V DATE OF EXAM: 05/25/2019 COMPARISON: 05/24/2019 HISTORY: Shortness of breath TECHNIQUE: Single frontal view of the chest is obtained. FINDINGS: The cardiomegaly and postsurgical changes seen with left-sided lower lobe infiltrate. No p neumothorax. No sizable pleural effusion. Underlying COPD not excluded. IMPRESSION: Cardiomegaly with stable left lower lobe infiltrate.
[2019-05-25] MEDS: PANTOPRAZOLE 40 MG TABLET PO SCH (08:52)
[2019-05-25] MEDS: SODIUM CHLORIDE 0.9% 1,000 ML IV SCH (08:52)
[2019-05-25] MEDS: AMIODARONE 200 MG TAB PO SCH (09:24)
[2019-05-25] MEDS: METOPROLOL TARTRATE 12.5 MG TAB PO SCH ×2 (09:24→21:16)
[2019-05-25] MEDS: FUROSEMIDE 10 MG/ML 2 ML VIAL IV SCH (09:25)
[2019-05-25] MEDS: GABAPENTIN 300 MG CAP PO SCH (09:25)
[2019-05-25] MEDS: CARBIDOPA-LEVODOPA 25-100 MG 1 EACH TAB PO SCH ×4 (09:25→21:16)
--- NOTE | 2019-05-25 11:13 | PN ---
PROGRESS NOTE Mrs Thorne the lady with a history of atrial flutter fibrillation syndrome. She is also having some generalized weakness with lower extremity muscle weakness as well. I am suggesting that we hold the Lipitor. A lumbar puncture was not performed yesterday. I am recommending that we resume the Eliquis at 5 mg b.i.d. I will perform an EKG, but rhythm looks like an atrial flutter. Vital signs are stable. S1, S2 heard normally. Short systolic murmur is audible at the base. Lungs revealed diminished air entry. Abdomen and lower extremity exam is unchanged. I am going to resume Lopressor at a low dose of 12.5 mg b.i.d. She had some pauses before. I will see how she does with a small dose of metoprolol. MMODL / IJN: [id number] /
--- NOTE | 2019-05-25 13:37 | P.PN ---
Subjective Progress Note Date: 05/25/19 Patient is 78-year-old female with a PMH of coronary artery disease status post CABG, aortic valve replacement, paroxysmal atrial fibrillation (on Eliquis), diastolic congestive heart failure, diabetes mellitus, hypertension, hyperlipidemia, and Parkinson's disease was brought into the ED due to multiple episodes of nonbloody diarrhea. The patient was noted to be in severe sepsis in the emergency room, with CT abdomen showing findings consistent with ischemic/inflammatory colitis. She was given fluid resuscitation along with IV antibiotics and was admitted to the medical ICU. She was also noted to have acute kidney injury, and severe lactic acidosis at 9 which subsequently resolved. The patient had persistent hypotension following admission to the ICU for which she was started on a Levophed infusion. On 05/19, the patient was noted to have altered mentation with concerns for possible CVA. A code stroke was activated. Neurology evaluated the patient and recommended that she likely has altered mentation due to a metabolic encephalopathy secondary to sepsis and acute kidney injury. Carotid duplex along with a CT brain were obtained which were unremarkable. Nephrology was also consulted and recommended that the patient's NICA was likely due to severe dehydration from diarrhea. The patient's mental status was noted to have worsened. ABG revealed hypercapnia and the patient was placed on BiPAP after which her mental status quickly improved. The patient was also noticed to have worsening weakness, more pronounced of the LEs for which a Neurology follow-up was requested. The patient was transferred to the selective unit on 05/25. She was seen while sitting in the chair at the [facility]. She continued to deny any active complaints though appeared more awake and alert from the day prior. Denied abdominal pain, fever, chills, chest pain, shortness of breath. Objective - Vital Signs Vital signs: Vital Signs Temp 98.1 F 05/25/19 12:42 Pulse 67 05/25/19 12:42 Resp 20 05/25/19 12:42 BP 163/69 05/25/19 12:42 Pulse Ox 93 L 05/25/19 12:42 Intake & Output 05/24/19 05/25/19 05/25/19 18:59 06:59 18:59 Intake Total 480 480 280 Output Total 5685 1185 375 Balance -1195 -705 -95 Weight 105.1 kg Intake: IV 480 480 160 Sodium Chloride 0.9% 1, 480 480 160 000 ml @ 40 mls/hr IV . Q24H [facility] Rx#:[id number] Oral 120 Output: Urine 1675 1185 375 Other: Voiding Method Indwelling Catheter Indwelling Catheter Incontinent ABP, PAP, CO, CI - Last Documented Arterial Blood Pressure 140/64 - Exam General: Elderly female, in no acute distress, appears stated age, obese HEENT: NC/AT, anicteric sclerae, moist conjunctiva, no lid-lag, PERRLA Cardiovascular: Irregularly irregular, grade 3 systolic murmur appreciated, no rubs, or gallops Lungs: Clear to auscultation, normal respiratory effort, no accessory muscle use Abdominal: Soft, non-tender, non-distended, no guarding, rebound, or rigidity Skin: Warm, dry Extremities: Some anasarca, no contractures Psychiatric: Alert, awake, oriented to person and place only Neuro: CN II-XII grossly intact, Strength 4/5 in upper extremities lyla, strength 2/5 of lyla LEs, Speech intact, Sensation to light touch grossly intact throughout - Labs CBC & Chem 7: 05/25/19 05:15 05/25/19 05:15 Labs: Abnormal Lab Results - Last 24 Hours (Table) 05/24/19 05/24/19 05/25/19 Range/Units 17:11 20:40 05:15 RBC 3.23 L (3.80-5.40) m/uL Hgb 10.2 L (11.4-16.0) gm/dL Hct 30.4 L (34.0-46.0) % Carbon Dioxide (22-30) mmol/L BUN (7-17) mg/dL Glucose (74-99) mg/dL POC Glucose (mg/dL) 188 H 258 H (75-99) mg/dL AST (14-36) U/L Total Protein (6.3-8.2) g/dL Albumin (3.5-5.0) g/dL 05/25/19 05/25/19 Range/Units 05:15 06:55 RBC (3.80-5.40) m/uL Hgb (11.4-16.0) gm/dL Hct (34.0-46.0) % Carbon Dioxide 31 H (22-30) mmol/L BUN 18 H (7-17) mg/dL Glucose 110 H (74-99) mg/dL POC Glucose (mg/dL) 131 H (75-99) mg/dL AST 37 H (14-36) U/L Total Protein 4.7 L (6.3-8.2) g/dL Albumin 2.4 L (3.5-5.0) g/dL Microbiology - Last 24 Hours (Table) 05/18/19 17:53 Blood Culture - Final Blood No Growth after 144 hours Assessment and Plan Plan: Diarrhea, septic shock resolved, likely secondary to infectious colitis -Continue with Zosyn and Flagyl for now -Cultures negative to date -Leukocytosis resolved AMS, likely secondary to hypercapnia w/ NICA and sepsis now resolved -C/w BiPAP nocturnal and prn -Carotid duplex, CT head and Neurology consultation reviewed Weakness -Concerns regarding possible GBS in setting of recent influenza vaccine administration (2 days prior to admission) vs GI culprit (ie compylobacter) -Neurology f/u w/ possible LP -Will hold Eliquis NICA, resolved -Nephrology recs appreciated -C/w Lasix daily Afib w/ RVR -Hold Eliquis for possible LP. C/w Amiodarone PO -Cardiology recs appreciated Normocytic anemia -Likely secondary to IVFs along with phlebotomy and acute stressors -Stable DM Type 2 -C/w Levemir to 20 U qhs and TON with FS Hypothyroidism -C/w home dose Levothyroxine DVT prophylaxis -Eliquis Discussed with: Patient Anticipated discharge date: 1-[address]: [facility] A total of 35 minutes was spent on the care of this complex patient more than 50% of the time was spent in counseling and care coordination.
--- NOTE | 2019-05-25 14:54 | P.PN ---
Subjective Progress Note Date: 05/25/19 Principal diagnosis: Acute gastroenteritis, and acute hypercapnic respiratory failure. This is a pleasant 78-year-old female patient with known history of coronary artery disease, previous bypass surgery, previous aortic valve replacement, along with history of chronic atrial fibrillation and diabetes mellitus and hypothyroidism. The patient has been followed up by Dr. Berry on outpatient basis. The patient acutely became ill this morning. She woke up and she developed nausea and emesis and watery diarrhea which is going on for now. The patient is passing significant amount of liquidy bowel movements. No melanotic. No bright red blood per rectum. No hematemesis. No abdominal pain or distention. No channel history. No ingestion of any contaminated material or food products. No sick contacts. She lives with her daughter and her daughter is healthy and she did not have any gastrointestinal symptoms. She's been eating home food Throughout the past month. No recent antibiotic intake. Reports history of inflammatory bowel disease or infectious colitis. No history of any inflammatory bowel disease.In the ED, the patient a white cell count of 21. The patient and acute kidney injury with a creatinine of 2.1. Lactic acid level was at 9. Potassium level was at 6.0. The patient was found to be borderline hypotensive with a systolic blood pressure in the mid 80s. The patient was given a total of 3 L of IV fluids and the fourth is infusing for no w. The patient is also on a maintenance 130 mL an hour normal saline. Resume amount of urine output. She underwent a straight cathetered UA essentially negative with +1 protein. Stool for C. diff is negative. Blood sugar was elevated at 3 on 35. Nevertheless the acetone was negative. She is awake and alert. She is following commands and answering questions. She is currently on normal saline at the rate of 1 30 mL an hour. No fever. No chills. No night sweats. No other complaints otherwise for now.On today's evaluation of 05/19/2019 I'm seeing this patient for a follow-up. Clinically the patient is having liquidy diarrhea. Hemodynamically she is still having the low blood pressure since earlier this morning. The patient was given a total of 6l fluids and the patient was receiving normal saline infusion as maintenance at the rate of 130 mL an hour. The patient was furthermore started on low dose norepinephrine infusion today and this was initiated to maintain a mean artery pressure above 65. The patient is having adequate urine output. Lactic acid levels are improving. White cell count is dropped. Note that the lactic acid level is down to 2.6. The creatinine is at 2.4 for now. The follow-up white cell count is down to 17 from a baseline of 21.9. Stool for C. diff was negative. Blood cultures still pending. The stool culture also pending. CAT scan of the abdomen and pelvis was done yesterday showed moderate circumferential mural thickening of the entire length of the distal half of the transverse colon and descending colon and the sigmoid colon consistent with inflammatory versus infectious colitis. No pneumoperitoneum. The patient is currently on IV Zosyn. No nausea. No vomiting. No abdominal pain. Altered mentation. No fever. No chills. The patient is requesting some oral intake. 05/23/2019, the patient is awake and alert. Note that yesterday, the patient had some cloudiness in her mentation. Her blood gases was done and showed some mild hypercapnic respiratory acidosis. She was placed on the BiPAP immediately she improved. She is profoundly weak. His extensive weakness in her upper and lower extremities. I think she is somewhat hypoventilating also. The chest x- rays clear. Would not having any issues with her oxygenation and she does well and states about 2 by nasal cannula. Nevertheless, she is having issues with ventilation. And this obviously brings up issues for hypoventilation. Her diarrhea is still present on and off. Over the less, she is well resuscitated. Her white cell count is down to 8.1. The renal function continues to improve the creatinine is down to 1.34. No altered mentation this morning pH was awake and she was able to follow commands and answering questions. Fever. No chills. He is currently on a BiPAP at a pressure of 12/5 cm of water with an FiO2 of 35%. Noted all of the cultures are negative. Upon further questioning, I was told that the patient was given a flu shot just a day or 2 prior to her presentation. She has underlying Parkinson's disease. Patient was reevaluated today on 05/24/2019, patient remains weak, she remains a bit confused, asking to be sent home. Continues to have mild hypercapnic respiratory acidosis, was on BiPAP earlier, and I switched the patient to a nasal cannula however advised the respirator therapist to watch carefully and to do a blood gas of the patient develops any worsening respiratory status or change in mental status. I asked the neurologist to evaluate the patient today again since Dr. Galindo was concerned about the possibility of Guillain-Hernandez syndrome. Then neurological evaluation is being performed as I dictate this note. And I discussed the condition of the patient with the neurologist on the case. CBC is relatively normal electrolytes are basically normal blood sugar is 230 this morning. Last ABG showed a pO2 of 147 pCO2 of 47 pH of 7.35, at one point he pCO2 was as high as 58 before she was placed on BiPAP. Yes I am just as concerned as Dr. Galindo is regarding the possibility of GBS since the patient presented with profound gastroenteritis and she did receive the flu vaccine 2 days prior to her presentation. Reevaluated today on 05/25/2019, patient is feeling better, did not require any BiPAP since yesterday, remains on nasal cannula. Patient is feeling much improved compared to the last couple of days, hence I have recommended transferring the patient out of the ICU to a regular medical floor. Patient denies any shortness of breath, denies any weakness, CBC is relatively normal el ectrolytes are normal renal profile is normal. Objective - Vital Signs Vital signs: Vital Signs Temp 98.1 F 05/25/19 12:42 Pulse 67 05/25/19 12:42 Resp 20 05/25/19 12:42 BP 163/69 05/25/19 12:42 Pulse Ox 93 L 05/25/19 12:42 Intake & Output 05/24/19 05/25/19 05/25/19 18:59 06:59 18:59 Intake Total 480 480 280 Output Total 1675 1185 375 Balance -1195 -705 -95 Weight 105.1 kg Intake: IV 480 480 160 Sodium Chloride 0.9% 1, 480 480 160 000 ml @ 40 mls/hr IV . Q24H [facility] Rx#:[id number] Oral 120 Output: Urine 1675 1185 375 Other: Voiding Method Indwelling Catheter Indwelling Catheter Incontinent ABP, PAP, CO, CI - Last Documented Arterial Blood Pressure 140/64 - Exam Physical Exam: Revealed a 78-year-old female on few liters nasal cannula, in no distress Head: Atraumatic, normocephalic. HEENT: PERRLA, EOMI, no icterus. [Neck is supple.] [No neck masses.] [No thyromegaly.] [No JVD.] Chest: [Diminished breath sounds at the bases no crackles or rhonchi or wheezes. Cardiac Exam: [Normal S1 and S2, no S3 gallop, 2/6 systolic murmur thought the precordium..] Abdomen: [Soft, nontender, no megaly, no rebound, no guarding, normal bowel sounds.] Extremities: [No clubbing, no edema, no cyanosis.] Neurological Exam: Patient is noted to be generally weak, alert, oriented 3, no gross focal neurologic deficits. Psychiatric: Normal mood, blunt affect, normal mental status examination - Labs CBC & Chem 7: 05/25/19 05:15 05/25/19 05:15 Labs: Abnormal Lab Results - Last 24 Hours (Table) 05/24/19 05/24/19 05/25/19 Range/Units 17:11 20:40 05:15 RBC 3.23 L (3.80-5.40) m/uL Hgb 10.2 L (11.4-16.0) gm/dL Hct 30.4 L (34.0-46.0) % Carbon Dioxide (22-30) mmol/L BUN (7-17) mg/dL Glucose (74-99) mg/dL POC Glucose (mg/dL) 188 H 258 H (75-99) mg/dL AST (14-36) U/L Total Protein (6.3-8.2) g/dL Albumin (3.5-5.0) g/dL 05/25/19 05/25/19 Range/Units 05:15 06:55 RBC (3.80-5.40) m/uL Hgb (11.4-16.0) gm/dL Hct (34.0-46.0) % Carbon Dioxide 31 H (22-30) mmol/L BUN 18 H (7-17) mg/dL Glucose 110 H (74-99) mg/dL POC Glucose (mg/dL) 131 H (75-99) mg/dL AST 37 H (14-36) U/L Total Protein 4.7 L (6.3-8.2) g/dL Albumin 2.4 L (3.5-5.0) g/dL Microbiology - Last 24 Hours (Table) 05/18/19 17:53 Blood Culture - Final Blood No Growth after 144 hours Assessment and Plan Assessment: Impression: 1 acute severe gastroenteritis. 2 acute hypercapnic respiratory failure and generalized weakness, doubt GBS. 3 acute kidney injury secondary to hypotension and acute tubular necrosis, possibly secondary to hypovolemia, patient presented with severe gastroenteritis. 4 history of aortic valve disease and previous replacement 5 secondary pulmonary hypertension 6 chronic atrial fibrillation, being followed by cardiology 7 Parkinson's disease 8 episodes of altered mental status requiring BiPAP for elevated pCO2 and hypercapnia, today she was switched to BiPAP to nasal cannula. 9 hypothyroidism 10 hyperlipidemia 11 type 2 diabetes 12 history of coronary artery disease and previous CABG Recommendation: Continue IV fluids, continue on nasal cannula, discontinue BiPAP. Continue cardiac meds including amiodarone continue empiric antibiotics continue Flagyl and Zosyn. Continue Sinemet for her underlying Parkinson's disease. We'll plan to transfer the patient today out of the ICU to a monitor bed. We'll continue to follow Time with Patient: Less than 30
[2019-05-25 16:28] LABS: Glucose,Whole Blood 249 mg/dL (75-99)
--- NOTE | 2019-05-25 19:31 | PN ---
PROGRESS NOTE Patient is seen for followup for acute kidney injury. Her renal function has improved significantly. Creatinine down from around 3-1.01 now. Patient has had good urine output. She is tolerating oral intake. She is actually being transferred out of the ICU. PHYSICAL EXAMINATION: On examination today, blood pressure was 146/70, heart rate of about 67 per minute. Patient is afebrile. Examination of the heart S1, S2. Examination of the lungs, bilateral breath sounds are heard. Abdomen is soft, nontender, obese. Examination of lower extremities shows no significant edema. LABS: Show sodium 140, potassium 4.2, chloride 105, CO2 is 31, BUN 18, serum creatinine 1.01, hemoglobin 10.2 g/dL. ASSESSMENT: 1. Acute kidney injury, acute tubular necrosis, currently improved. 2. Encephalopathy, now resolved. 3. Volume overload, now improved. The patient is currently on IV Lasix 20 mg daily, which we can continue. 4. Atrial fibrillation with RVR, controlled ventricular response maintained on oral amiodarone. 5. Diarrhea, now resolved. PLAN: Repeat labs in a.m. Continue to avoid nephrotoxic agents. Continue with IV Lasix for now. MMODL / IJN: [id number] /
[2019-05-25 20:12] LABS: Glucose,Whole Blood 244 mg/dL (75-99)
--- NOTE | 2019-05-25 20:22 | P.PN ---
Progress Note - Text Progress Note Date: 05/25/19 SUBJECTIVE/INTERVAL EVENTS: Patient transferred to the floor from ICU. Pt with no complaints. She was able to take several steps with therapists. Daughter at bedside also reports patient is getting stronger but definitely not at baseline. Denies any headache, nausea, vomiting, numbness or tingling sensation, dizziness, double/blurry vision, dyspnea or dysphagia. PHYSICAL EXAMINATION: VITAL SIGNS: T 97.9 HR 102 RR 21 BP 146/70 O2 sat 99% via NC on 2L GEN.: NAD, slightly grumpy but cooperative HEENT: NCAT, sclera without icterus NECK: Supple SKIN AND EXTREMITIES: Warm to touch, some LE pitting edema NEURO: MENTAL STATUS: Patient alert and oriented to self, place, time. Able to name the current president. Speech fluent, able to name and repeat, following commands readily. CRANIAL NERVES II THROUGH XII: II: Pupils are equal and reactive to light symmetrically. No afferent pupillary defect. Visual lloyd are intact. III, IV, : No ptosis. Extraocular movements full. No nystagmus. V: Facial sensation intact from V1-3. VII. No clear facial asymmetry. VIII: Hearing intact to finger rub bilaterally. IX, X: Symmetric palate elevation. XI: Shoulder shrug intact. XII: Tongue midline without fasciculation or atrophy. MOTOR: Normal bulk/tone. Generalized weakness, able to move antigravity in b/l UE. Able to move b/l feet and knees but some difficulty with moving her thighs against gravity. per RN, patient as able to stand to move from bed to chair. SENSORY: SILT in all 4 extremities. Reports decreased sensation to temperature but intact to LT and pinprick. REFLEXES: 2+ in b/l UE. No reflexes in b/l LE (patient says "I have no reflexes in my legs," and states it's been that way for years. Toes are downgoing. COORDINATION: Finger to nose intact. No dysmetria. GAIT: deferred DIAGNOSTIC TESTING: LABORATORY: WBC 6.7 hemoglobin 10.0 platelet 213 sodium 137 potassium 4.3 chloride 104 bicarb 29 BUN 26 creatinine 1.09 glucose 124 IMAGING: Echocardiogram 05/19/2019: Atrial fibrillation. LV size is normal. Moderate concentric left ventricular hypertrophy. EF 45-50%. RV is mildly enlarged. LA is mildly dilated. Normally functioning porcine bioprosthetic aortic valve. Moderate regurgitation and mild stenosis of the bioprosthetic aortic valve. CT brain without contrast 05/19/2019: Cervical atrophy. No acute intracranial abnormality. He is recently he E no I need patient symptoms. The Mild degree of prescott scale atheromatous plaquing with no sonographically evident hemodynamically significant stenosis within either visualize carotid arterial system. EEG 05/20/2019: There is an abnormal EEG with excessive background slowing who se pattern can be consistent with metabolic encephalopathy. ASSESSMENT/RECOMMENDATIONS: Ms. Thorne is a 78 year-old woman with PMHx of CAD s/p CABG and AVR, chronic afib on Eliquis, DM, hypothyroidism, Parkinson's Disease, initially consulted Neurology for AMS, found with metabolic encephalopathy in the setting of sepsis, reconsulting Neurology for concern of Guillain-Claxton as patient had a recent flu shot along with being admitted for infective colitis (negative for campylobacter). At this time, patient with generalized weakness with no focality. Decreased sensation to temperature, which could be from patient's previous history of peripheral neuropathy for which patient is on gabapentin. Suspicion for Guillain-Hernandez at this time is low. Neurology will sign off at this time. Please call with any additional questions or concerns.
[2019-05-25] MEDS: METOPROLOL TARTRATE 50 MG TAB PO SCH (20:56)
[2019-05-25] MEDS: INSULIN DETEMIR (LEVEMIR) 100 UNIT/ML SYR SQ SCH (21:18)
[2019-05-26 05:02] VITALS: RESP 18
[2019-05-26 06:18] LABS: Glucose,Whole Blood 151 mg/dL (75-99)
[2019-05-26] MEDS: LEVOTHYROXINE 112 MCG TAB PO SCH (06:26)
[2019-05-26] MEDS: INSULIN ASPART (NovoLOG) 100 UNIT/ML VIAL SQ SCH ×4 (06:26→21:26)
[2019-05-26] MEDS: FUROSEMIDE 10 MG/ML 2 ML VIAL IV SCH (08:34)
[2019-05-26] MEDS: PIPERACILLIN-TAZOBACTAM 3.375 GM in SODIUM CHLORIDE 0.9% 100 ML IVPB SCH ×3 (08:36→23:14)
[2019-05-26] MEDS: metroNIDAZOLE 500 MG TAB PO SCH ×3 (08:37→23:13)
[2019-05-26] MEDS: METOPROLOL TARTRATE 12.5 MG TAB PO SCH (08:37)
[2019-05-26] MEDS: CARBIDOPA-LEVODOPA 25-100 MG 1 EACH TAB PO SCH ×4 (08:37→21:26)
[2019-05-26] MEDS: AMIODARONE 200 MG TAB PO SCH (08:37)
[2019-05-26] MEDS: PANTOPRAZOLE 40 MG TABLET PO SCH (08:37)
[2019-05-26] MEDS: GABAPENTIN 300 MG CAP PO SCH (08:37)
[2019-05-26] MEDS: SODIUM CHLORIDE 0.9% 1,000 ML IV SCH (08:37)
[2019-05-26 10:14] VITALS: BMI 36.5
[2019-05-26 11:59] LABS: Glucose,Whole Blood 179 mg/dL (75-99)
[2019-05-26] MEDS: APIXABAN 5 MG TAB PO SCH ×2 (12:25→21:25)
--- NOTE | 2019-05-26 12:30 | P.PN ---
Subjective Progress Note Date: 05/26/19 Principal diagnosis: Acute hypoxic respiratory failure related to fluid volume overload, acute gastroenteritis, viral versus bacterial cause, acute lactic acidosis and acute kidney injury This is a pleasant 78-year-old female patient with known history of coronary artery disease, previous bypass surgery, previous aortic valve replacement, along with history of chronic atrial fibrillation and diabetes mellitus and hypothyroidism. The patient has been followed up by Dr. Berry on outpatient basis. The patient acutely became ill this morning. She woke up and she developed nausea and emesis and watery diarrhea which is going on for now. The patient is passing significant amount of liquidy bowel movements. No melanotic. No bright red blood per rectum. No hematemesis. No abdominal pain or distention. No channel history. No ingestion of any contaminated material or food products. No sick contacts. She lives with her daughter and her daughter is healthy and she did not have any gastrointestinal symptoms. She's been eating home food Throughout the past month. No recent antibiotic intake. Reports history of inflammatory bowel disease or infectious colitis. No history of any inflammatory bowel disease. In the ED, the patient a white cell count of 21. The patient and acute kidney injury with a creatinine of 2.1. Lactic acid level was at 9. Potassium level was at 6.0. The patient was found to be borderline hypotensive with a systolic blood pressure in the mid 80s. The patient was given a total of 3 L of IV fluids and the fourth is infusing for now. The patient is also on a maintenance 130 mL an hour normal saline. Resume amount of urine output. She underwent a straight cathetered UA essentially negative with +1 protein. Stool for C. diff is negative. Blood sugar was elevated at 3 on 35. Nevertheless the acetone was negative. She is awake and alert. She is following commands and answering questions. She is currently on normal saline at the rate of 1 30 mL an hour. No fever. No chills. No night sweats. No other complaints otherwise for now. On today's evaluation of 05/19/2019 I'm seeing this patient for a follow-up. Clinically the patient is having liquidy diarrhea. Hemodynamically she is still having the low blood pressure since earlier this morning. The patient was given a total of 6l fluids and the patient was receiving normal saline infusion as maintenance at the rate of 130 mL an hour. The patient was furthermore started on low dose norepinephrine infusion today and this was initiated to maintain a mean artery pressure above 65. The patient is having adequate urine output. Lactic acid levels are improving. White cell count is dropped. Note that the lactic acid level is down to 2.6. The creatinine is at 2.4 for now. The follow-up white cell count is down to 17 from a baseline of 21.9. Stool for C. diff was negative. Blood cultures still pending. The stool culture also pending. CAT scan of the abdomen and pelvis was done yesterday showed moderate circumferential mural thickening of the entire length of the distal half of the transverse colon and descending colon and the sigmoid colon consistent with inflammatory versus infectious colitis. No pneumoperitoneum. The patient is currently on IV Zosyn. No nausea. No vomiting. No abdominal pain. Altered mentation. No fever. No chills. The patient is requesting some oral intake. On 05/20/2019 patient seen in follow-up in the intensive care unit. Last night change in mentation has been noted, patient became more lethargic, confused, but no unilateral motor weakness was noted, her speech was garbled, and there was concern about acute stroke, "stroke code" was called, NIH score was 16 initially, brain CT showed no acute intracranial process, did show cerebral atrophy, and sinusitis. NIH score did improve on subsequent reevaluation and was down to 14, however patient remains lethargic, and a blood gas was obtained showing pO2 of 56, pCO2 46, and pH of 7.23, consistent with mixed respiratory and metabolic acidosis and acute hypoxemic respiratory failure. Chest x-ray this morning showed a small bilateral pleural effusions, and cephalization, changes to sit with fluid volume overload and patient was given a dose of IV Lasix 60 mg 1. Patient remains on a small dose of Levofed at 4 mics per minute, patient did receive significant amount of fluid and initial fluid resuscitation, over 6 L in the fluid boluses for hypotension, acute kidney injury related to nausea, vomiting, diarrhea, and significant intravascular volume depletion. Patient did have 2 more liquid stools last night, C. diff was negative, stool cultures are pending at this time, blood culture showed no growth, she has had low-grade fevers. Remains on the bicarb infusion, and today's blood work shows serum bicarb slightly improved up to 21, serum sodium was 134, potassium is 5.0, quite is 105, BUN is 59, and creatinine is 3.08, slight worsening renal profile is noted. White count is improved, down to 15.6. Lung sounds are diminished, patient is lethargic, but is opening eyes, she is inattentive, she knows she is in the hospital, but was falling asleep or she could tell me the month of the year. He was placed on BiPAP support with pressures of 12 and 6, and FiO2 of 100%. Her family was updated on her condition. Patient remains critically ill. He does have a history of bioprosthetic aortic valve and the echocardiogram showed aortic regurgitation, and abnormally functioning bioprosthetic aortic valve, EF of 45-50%, and severe pulmonary hypertension with PA systolic of 64 mmHg. Remains on Zosyn for antibiotic coverage, there has been no nausea or vomiting, no abdominal pain, her abdomen is soft, she denies any abdominal tenderness. On 05/26/2019 patient seen in follow-up on selective care unit, she has been transferred out of the intensive care unit yesterday, today she seen sitting up in the recliner on room air, with a pulse ox of 90-92%, in no acute distress, however she does remain generally weak. Afebrile, hemodynamically patient is stable, denies any difficulty breathing. Lung sounds reveal some basilar rales. Patient states she still having episodes of diarrhea, she already had 5 episodes today. Her C. diff was negative, stool culture and blood cultures have been negative. Patient remains on Zosyn, and Flagyl for antibiotic coverage, cultures have been negative. Remains on oral Lasix, exact net fluid balance is difficult to estimate, the weight remains stable at 99.6 kg, and patient still has 1-2+ lower extremity edema. Objective - Vital Signs Vital signs: Vital Signs Temp 97.9 F 05/26/19 12:00 Pulse 101 H 05/26/19 12:00 Resp 18 05/26/19 12:00 BP 141/73 05/26/19 12:00 Pulse Ox 92 L 05/26/19 12:00 Intake & Output 05/25/19 05/26/19 05/26/19 18:59 06:59 18:59 Intake Total 520 240 240 Output Total 575 Balance -55 240 240 Weight 99.6 kg 99.6 kg Intake: IV 160 Sodium Chloride 0.9% 1, 160 000 ml @ 40 mls/hr IV . Q24H [facility] Rx#:[id number] Oral 360 240 240 Output: Urine 575 Other: Voiding Method Toilet Toilet Toilet Bedside Commode Bedside Commode # Voids 0 2 1 # Bowel Movements 1 2 1 ABP, PAP, CO, CI - Last Documented Arterial Blood Pressure 140/64 - Exam GENERAL EXAM: Awake and alert and oriented 3 78-year-old white female, up in the recliner, currently on room air, with a pulse ox of 90-92%, no acute distress HEAD: Normocephalic/atraumatic. EYES: Normal reaction of pupils, equal size. Conjunctiva pink, sclera white. NOSE: Clear with pink turbinates. THROAT: No erythema or exudates. NECK: No masses, no JVD, no thyroid enlargement, no adenopathy. CHEST: No chest wall deformity. Symmetrical expansion. LUNGS: Equal air entry with diminished breath sounds at the bases. No rhonchi or wheezing CVS: Regular rate and rhythm, normal S1 and S2, no gallops, no rubs. 3/6 systolic ejection murmur heard over the apex radiating to the neck area ABDOMEN: Soft, nontender. No hepatosplenomegaly, normal bowel sounds, no guarding or rigidity. EXTREMITIES: No clubbing, no edema, no cyanosis, 2+ pulses and upper and lower extremities. MUSCULOSKELETAL: Muscle strength and tone normal. SPINE: No scoliosis or deformity SKIN: No rashes CENTRAL NERVOUS SYSTEM: Lethargic, oriented 2, to person and place No focal deficits, tone is normal in all 4 extremities. - Labs CBC & Chem 7: 05/25/19 05:15 05/25/19 05:15 Labs: Abnormal Lab Results - Last 24 Hours (Table) 05/25/19 05/25/19 05/26/19 Range/Units 16:25 20:11 06:17 POC Glucose (mg/dL) 249 H 244 H 151 H (75-99) mg/dL 05/26/19 Range/Units 11:57 POC Glucose (mg/dL) 179 H (75-99) mg/dL Assessment and Plan Plan: Assessment: 1 acute severe gastroenteritis. 2 acute hypercapnic respiratory failure and generalized weakness, doubt GBS. 3 acute kidney injury secondary to hypotension and acute tubular necrosis, possibly secondary to hypovolemia, patient presented with severe gastroent eritis. 4 history of aortic valve disease and previous replacement 5 secondary pulmonary hypertension 6 chronic atrial fibrillation, being followed by cardiology 7 Parkinson's disease 8 episodes of altered mental status requiring BiPAP for elevated pCO2 and hypercapnia, today she was switched to BiPAP to nasal cannula. 9 hypothyroidism 10 hyperlipidemia 11 type 2 diabetes 12 history of coronary artery disease and previous CABG Plan: Continue encouraging deep breathing and coughing, incentive spirometry use, physical therapy consultation patient is weak. Continue with oral diuretics, accurate intake and output, daily weights, repeat labs. She continues to have episodes of diarrhea, C. diff has been negative, stool cultures have been negative. Patient is on oral anticoagulation, her vitals are stable. She is maintaining oxygenation on room air. repeat labs today. I performed a history & physical examination of the patient and discussed their management with my nurse practitioner, Eneida Hayes. I reviewed the nurse practitioner's note and agree with the documented findings and plan of care. Lung sounds are positive for diminished breath sounds. The findings and the impression was discussed with the patient. I attest to the documentation by the nurse practitioner. Time with Patient: Less than 30
--- NOTE | 2019-05-26 15:20 | P.DS ---
Providers Date of admission: 05/18/19 17:18 Expected date of discharge: 05/26/19 Attending physician: Rikki Cha MD Consults: 05/18/19 17:18 Consult Physician Urgent Consulting Provider: Navya Galindo Consult Reason/Comments: icu Do you want consulting provider notified?: Yes 05/19/19 09:09 Consult Physician Urgent Consulting Provider: Addy Betts Consult Reason/Comments: increased creatinine Do you want consulting provider notified?: Yes 05/19/19 23:58 Consult Physician Urgent Consulting Provider: Tashia Mensah Consult Reason/Comments: increased confusion, code stroke Do you want consulting provider notified?: Already Contacted 05/20/19 10:48 Consult Physician Urgent Consulting Provider: Shirin Byers Consult Reason/Comments: afib Do you want consulting provider notified?: Yes 05/23/19 06:52 Consult Physician Urgent Consulting Provider: Tashia Mensah Consult Reason/Comments: weakness, ? guilliain [place] Do you want consulting provider notified?: Yes 05/26/19 14:17 Consult Physician Routine Consulting Provider: Neida Michaels Consult Reason/Comments: diarrhea Do you want consulting provider notified?: Yes Primary care physician: [facility] Course: Patient is 78-year-old female with a PMH of coronary artery disease status post CABG, aortic valve replacement, paroxysmal atrial fibrillation (on Eliquis), diastolic congestive heart failure, diabetes mellitus, hypertension, hyperlipidemia, and Parkinson's disease was brought into the ED due to multiple episodes of nonbloody diarrhea. The patient was noted to be in severe sepsis in the emergency room, with CT abdomen showing findings consistent with ischemic/inflammatory colitis. She was given fluid resuscitation along with IV antibiotics and was admitted to the medical ICU. She was also noted to have acute kidney injury, and severe lactic acidosis at 9 which subsequently resolved. The patient had persistent hypotension following admission to the ICU for which she was started on a Levophed infusion. On 05/19, the patient was noted to have altered mentation with concerns for possible CVA. A code stroke was activated. Neurology evaluated the patient and recommended that she likely has altered mentation due to a metabolic encephalopathy secondary to sepsis and acute kidney injury. Carotid duplex along with a CT brain were obtained which were unremarkable. Nephrology was also consulted and recommended that the patient's NICA was likely due to severe dehydration from diarrhea. The patient's mental status was noted to have worsened. ABG revealed hypercapnia and the patient was placed on BiPAP after which her mental status quickly improved. The patient was also noticed to have worsening weakness, more pronounced of the LEs for which a Neurology follow-up was requested due to concerns regarding possible Guillain-[place] syndrome. The patient was transferred to the selective unit on 05/25. Neurology recommended that the patient's weakness is unlikely to be due to GBS. The patient was evaluated by physical therapy and recommended SUNI. The patient was placed at a rehab facility. She was seen at the bedside on the day of discharge. Patient was seen in the selective unit at the bedside sitting in a chair. The patient was in good spirits and noted that she feels better. She denied active complaints. She denied fever, chills, nausea, vomiting, or continued diarrhea. Patient is agreeable and ready for discharge to subacute rehab. Physical Examination General: Elderly F, non-toxic, in no acute distress, appears stated age, obese HEENT: NC/AT, anicteric sclerae, moist conjunctiva, no lid-lag, PERRLA Cardiovascular: S1/S2 wnl, systolic murmur appreciated, no murmurs, rubs, or gallops Lungs: Clear to auscultation, normal respiratory effort, no accessory muscle use Abdominal: Soft, non-tender, non-distended, no guarding, rebound, or rigidity Skin: Warm, dry Extremities: No edema or contractures Psychiatric: Alert and oriented to person and place only Neuro: CN II-XII grossly intact, Strength 4/5 in UEs lyla and 3/5 of lyla LEs, Speech intact, Sensation to light touch grossly intact throughout Discharge diagnosis: Diarrhea, resolved; Septic shock, resolved; AMS, resolved; weakness; NICA, resolved; Afib; Normocytic anemia; Type 2 DM; Hypothyroidism A total of 45 minutes of time were spent preparing this complex discharge summary. Patient Condition at Discharge: Fair Plan - Discharge Summary Discharge Rx Participant: No New Discharge Prescriptions: New Furosemide [Lasix] 40 mg PO DAILY tab Levothyroxine Sodium [Synthroid] 112 mcg PO DAILY@0630 #0 tab Continue Simvastatin [Zocor] 20 mg PO HS Gabapentin [Neurontin] 300 mg PO BID metFORMIN HCL [Glucophage] 1,000 mg PO BID Carbidopa-Levodopa 25-100 mg [Sinemet 25-100 mg] 1 tab PO QID Aspirin 81 mg PO DAILY chew Apixaban [Eliquis] 5 mg PO BID #60 tab glipiZIDE [Glucotrol] 5 mg PO AC-BRKFST Amiodarone [Cordarone] 200 mg PO DAILY Metoprolol Tartrate [Lopressor] 25 mg PO BID Discontinued Furosemide [Lasix] 40 mg PO BID #60 tab Levothyroxine Sodium [Synthroid] 137 mcg PO DAILY #30 tab Naproxen [Naprosyn] 500 mg PO Q12HR PRN #0 PRN Reason: Pain Benazepril [Lotensin] 10 mg PO DAILY Discharge Medication List Gabapentin [Neurontin] 300 mg PO BID 09/29/16 [History] Simvastatin [Zocor] 20 mg PO HS 09/29/16 [History] Carbidopa-Levodopa 25-100 mg [Sinemet 25-100 mg] 1 tab PO QID 01/05/19 [History] metFORMIN HCL [Glucophage] 1,000 mg PO BID 01/05/19 [History] Apixaban [Eliquis] 5 mg PO BID #60 tab 01/09/19 [Rx] Aspirin 81 mg PO DAILY chew 01/09/19 [Rx] Amiodarone [Cordarone] 200 mg PO DAILY 05/18/19 [History] Metoprolol Tartrate [Lopressor] 25 mg PO BID 05/18/19 [History] glipiZIDE [Glucotrol] 5 mg PO AC-BRKFST 05/18/19 [History] Furosemide [Lasix] 40 mg PO DAILY tab 05/26/19 [Rx] Levothyroxine Sodium [Synthroid] 112 mcg PO DAILY@0630 #0 tab 05/26/19 [Rx] Follow up Appointment(s)/Referral(s): [facility], [NON-STAFF] - 1-2 Days Deandre Bartholomew MD [Primary Care Provider] - 1-2 days Discharge Disposition: TRANSFER TO SNF/ECF
--- NOTE | 2019-05-26 15:33 | P.PN ---
Subjective Progress Note Date: 05/26/19 This is a pleasant 78-year-old female patient with known history of coronary artery disease, previous bypass surgery, previous aortic valve replacement, along with history of chronic atrial fibrillation and diabetes mellitus and hypothyroidism. The patient has been followed up by Dr. Berry on outpatient basis. Omitted to the hospital with acute hypoxic respiratory failure related to fluid VOLUME overload, acute gastroenteritis, viral versus bacterial cause, acute lactic acidosis and acute kidney injury. Patient is now being followed on the cardiac unit. Alert and oriented today. Sitting up in the chair today at the time of our examination, pulse ox 92%, continues to feel weak. She is afebrile. She still having some episodes of diarrhea, her C. diff was negative, stool and blood cultures have been negative. Objective - Vital Signs Vital signs: Vital Signs Temp 97.9 F 05/26/19 12:00 Pulse 101 H 05/26/19 12:00 Resp 18 05/26/19 12:00 BP 141/73 05/26/19 12:00 Pulse Ox 92 L 05/26/19 12:00 Intake & Output 05/25/19 05/26/19 05/26/19 18:59 06:59 18:59 Intake Total 520 240 240 Output Total 575 Balance -55 240 240 Weight 99.6 kg 99.6 kg Intake: IV 160 Sodium Chloride 0.9% 1, 160 000 ml @ 40 mls/hr IV . Q24H [facility] Rx#:[id number] Oral 360 240 240 Output: Urine 575 Other: Voiding Method Toilet Toilet Toilet Bedside Commode Bedside Commode # Voids 0 2 1 # Bowel Movements 1 2 1 ABP, PAP, CO, CI - Last Documented Arterial Blood Pressure 140/64 - Exam HEAD: Normocephalic/atraumatic. EYES: Normal reaction of pupils, equal size. Conjunctiva pink, sclera white. NOSE: Clear with pink turbinates. THROAT: No erythema or exudates. NECK: No masses, no JVD, no thyroid enlargement, no adenopathy. CHEST: No chest wall deformity. Symmetrical expansion. LUNGS: Equal air entry with diminished breath sounds at the bases. No rhonchi or wheezing CVS: Regular rate and rhythm, normal S1 and S2, no gallops, no rubs. 3/6 systolic ejection murmur heard over the apex radiating to the neck area ABDOMEN: Soft, nontender. No hepatosplenomegaly, normal bowel sounds, no guarding or rigidity. EXTREMITIES: No clubbing, 1+ edema, no cyanosis, 2+ pulses and upper and lower extremities. MUSCULOSKELETAL: Muscle strength and tone normal. SPINE: No scoliosis or deformity SKIN: No rashes CENTRAL NERVOUS SYSTEM: Lethargic, oriented 2, to person and place No focal deficits, tone is normal in all 4 extremities. - Labs CBC & Chem 7: 05/25/19 05:15 05/25/19 05:15 Labs: Abnormal Lab Results - Last 24 Hours (Table) 05/25/19 05/25/19 05/26/19 Range/Units 16:25 20:11 06:17 POC Glucose (mg/dL) 249 H 244 H 151 H (75-99) mg/dL 05/26/19 Range/Units 11:57 POC Glucose (mg/dL) 179 H (75-99) mg/dL Assessment and Plan Plan: Assessment: 1 acute severe gastroenteritis. 2 acute hypercapnic respiratory failure and generalized weakness, doubt GBS. 3 acute kidney injury secondary to hypotension and acute tubular necrosis, possibly secondary to hypovolemia, patient presented with severe gastroenteritis. 4 history of aortic valve disease and previous replacement 5 secondary pulmonary hypertension 6 chronic atrial fibrillation, being followed by cardiology 7 Parkinson's disease 8 episodes of altered mental status requiring BiPAP for elevated pCO2 and hypercapnia, today she was switched to BiPAP to nasal cannula. 9 hypothyroidism 10 hyperlipidemia 11 type 2 diabetes 12 history of coronary artery disease and previous CABG Plan: Cardiology's perspective, we'll change patient over to oral diuretics today, resume Eliquis 5 mg one tablet by mouth twice a day, increase beta vale to 25 mg one tablet by mouth twice a day. DNP note has been reviewed, I agree with a documented findings and plan of care. Patient was seen and examined.
[2019-05-26 16:40] LABS: Glucose,Whole Blood 201 mg/dL (75-99)
--- NOTE | 2019-05-26 20:23 | PN ---
PROGRESS NOTE Patient is seen for followup for acute kidney injury. Her renal function has improved significantly. She has been transferred out of the ICU. Serum creatinine was 1.01 yesterday. PHYSICAL EXAMINATION: On examination today, blood pressure was 148/70, heart rate 108 per minute, patient is afebrile. Examination of the heart S1, S2. Examination of the lungs, bilateral breath sounds are heard. Abdomen is soft, nontender, obese. Examination of lower extremities shows no significant edema. LABS: Not available from today. Creatinine was 1.01 yesterday. ASSESSMENT: 1. Acute kidney injury secondary to hypotension, hypoperfusion, now improved. 2. Volume overload, resolved. 3. Atrial fibrillation with rapid ventricular response, now with controlled ventricular response maintained on amiodarone. 4. Encephalopathy, now resolved. PLAN: Continue with oral Lasix. Monitor labs and electrolytes as outpatient. MMODL / IJN: [id number] /
[2019-05-26 20:54] LABS: Glucose,Whole Blood 228 mg/dL (75-99)
[2019-05-26] MEDS: METOPROLOL TARTRATE 25 MG TAB PO SCH (21:26)
[2019-05-26] MEDS: INSULIN DETEMIR (LEVEMIR) 100 UNIT/ML SYR SQ SCH (21:26)
--- NOTE | 2019-05-26 23:21 | PN ---
PROGRESS NOTE This is a patient with a history of atrial flutter fibrillation syndrome, generalized weakness, lower extremity weakness. However, her lower extremity weakness has improved. She is neurologically intact, doing much better. She was going to have a lumbar puncture but that was never performed. She has improved neurologically. Her rhythm is still in atrial flutter. Rate is between 90 and 100. I will increase the metoprolol to 25 mg b.i.d. and she can be discharged on Eliquis which was supposed to be resumed yesterday but will be resumed today. I am recommending that she can be discharged on rate control and Eliquis and see Dr. Berry in the outpatient setting and will have electrical cardioversion in the next couple of weeks or so. I have also reduce the dose of her Synthroid in view of her elevated free T4. She has not had any pauses. She is doing well. She has underlying IVCD, but rhythm appears to be atrial flutter with a 3 as to 1 block. We will continue current medical regimen. Vital signs are stable. S1-S2 heard normally. Short systolic murmur noted. Lungs reveal bilateral improved air entry. Abdomen is distended, nontender. Lower extremities reveal diminished pulses. Central nervous system has improved remarkably. Plan is to increase metoprolol. Plan for discharge. MMODL / IJN: [id number] /
--- NOTE | 2019-05-26 23:27 | CONS ---
CONSULTATION DATE OF DICTATION: 05/26/2019 REASON FOR CONSULTATION: Chronic diarrhea. HISTORY OF PRESENT ILLNESS: The patient is a 78-year-old pleasant white female who was admitted to the hospital with acute respiratory failure secondary to volume overload/acute gastroenteritis and severe lactic acidosis and acute kidney injury. The patient has been in the hospital for the last 8 days' duration. She was in the intensive care unit for 3 days and was just transferred out 4 days ago. At the time of admission to the hospital, the patient presented with severe diarrhea with bowel movements anywhere from 4 to 5 a day which were loose to watery in consistency for the last 2 weeks prior to hospitalization. At the time of admission to the hospital she was noted to have acute kidney injury. She was given aggressive IV hydration and subsequently went into fluid overload and had acute respiratory failure. The patient is doing much better in regard to all of this. She was transferred from the ICU about 4 days ago. She still continues to have chronic diarrhea, has been having bowel movements anywhere from 3 to 4 a day which are loose to watery in consistency. No blood or mucus in the stool. She denies any associated abdominal pain. She reports no nausea, vomiting. She does not recall being started on any new medications in the last few weeks. No recent travel history. At the time of admission to the hospital she did have stool studies and stool cultures done which were negative for C difficile toxin. The patient was started on empiric antibiotics with Flagyl and Zosyn. She still continues to have the diarrhea. Her last colonoscopy was more than 10 years ago. PAST MEDICAL HISTORY: Her past medical history is significant for: 1. Hypertension. 2. Hypercholesteremia. 3. Hypothyroidism. 4. Cardiac arrhythmias. 5. Diabetes mellitus. MEDICATIONS AT HOME: 1. Neurontin. 2. Zocor. 3. Sinemet. 4. Glucophage. 5. Eliquis. 6. Aspirin. 7. Lotensin. 8. Lasix. 9. Synthroid. 10.Naprosyn. 11.Cordarone. 12.Lopressor. 13.Glucotrol. PAST SURGICAL HISTORY: 1. Coronary artery bypass surgery. 2. Aortic valve replacement. 3. Cardiac catheterization with stent placement. 4. Cholecystectomy. 5. Bilateral cataract surgery. FAMILY HISTORY: Father had a myocardial infarction. ALLERGIES: NO KNOWN DRUG ALLERGIES. SOCIAL HISTORY: No smoking. No alcohol use. REVIEW OF SYSTEMS: CARDIOPULMONARY: No chest pain or shortness of breath. GENITOURINARY: No dysuria or hematuria. MUSCULOSKELETAL: Complains of right knee pain and chronic back pain. ENT/VISION: Unremarkable. CONSTITUTIONAL: No recent weight loss. No fever, chills, night sweats. HEMATOLOGY: Unremarkable. PSYCHIATRY: Unremarkable. ONCOLOGY: Unremarkable. ENDOCRINE: Unremarkable. PHYSICAL EXAMINATION: She appears comfortable. No apparent distress. VITAL SIGNS: Stable. Blood pressure is 132/73, pulse rate 101, temperature 97.9. HEENT examination unremarkable. Conjunctivae pink. Sclerae anicteric. Oral cavity no lesions. NECK: No JVD or lymph node enlargement. CHEST: Clear to auscultation. ABDOMEN: Soft. It was obese. Bowel sounds are positive. No organomegaly. EXTREMITIES: No pedal edema. SKIN: No rashes. NEUROLOGIC: Alert and oriented x3. No focal deficits. LABS FROM TODAY: WBC 6.7, hemoglobin 10.2. Platelets are normal. Basic metabolic panel is within normal limits. BUN is 18, creatinine 1.01. At the time of admission to the hospital, BUN was 53 and creatinine was 2.9. IMPRESSION: 1. Chronic diarrhea for the last 3 weeks' duration. Patient presented to the hospital with acute kidney injury requiring aggressive IV hydration. She continues to have persistent diarrhea. Stool for C difficile toxin was negative and cultures were negative at the time of admission to the hospital. She has been on empiric antibiotics with Flagyl and Zosyn, with no significant change in her symptoms. Her last colonoscopy was more than 10 years ago. She has no personal history of inflammatory bowel disease. Etiology of chronic diarrhea remains unclear, and this needs to be investigated. 2. Acute respiratory failure secondary to fluid overload. Patient was in the intensive care unit, intubated, and was extubated about 3 days ago, now doing well. RECOMMENDATIONS: 1. Will obtain C difficile toxin since the patient has been receiving antibiotics for the last 8 days. 2. If the C difficile toxin is negative, will consider a colonoscopy during this hospitalization to investigate the chronic diarrhea. I discussed with the patient the plan. She is agreeable to it. Thank you for this consultation. MMODL / IJN: [id number] /
[2019-05-27 05:20] VITALS: BP 150/85; PULSE 79; TEMP 98.6
[2019-05-27 07:08] LABS: Glucose,Whole Blood 102 mg/dL (75-99)
[2019-05-27] MEDS: INSULIN ASPART (NovoLOG) 100 UNIT/ML VIAL SQ SCH ×2 (07:41→12:19)
[2019-05-27] MEDS ORDERED: FUROSEMIDE 40 MG TAB PO SCH (09:00)
[2019-05-27] MEDS: METOPROLOL TARTRATE 25 MG TAB PO SCH (09:14)
[2019-05-27] MEDS: PIPERACILLIN-TAZOBACTAM 3.375 GM in SODIUM CHLORIDE 0.9% 100 ML IVPB SCH (09:14)
[2019-05-27] MEDS: AMIODARONE 200 MG TAB PO SCH (09:14)
[2019-05-27] MEDS: metroNIDAZOLE 500 MG TAB PO SCH (09:14)
[2019-05-27] MEDS: PANTOPRAZOLE 40 MG TABLET PO SCH (09:15)
[2019-05-27] MEDS: GABAPENTIN 300 MG CAP PO SCH (09:15)
[2019-05-27] MEDS: CARBIDOPA-LEVODOPA 25-100 MG 1 EACH TAB PO SCH ×2 (09:15→13:53)
[2019-05-27] MEDS: APIXABAN 5 MG TAB PO SCH (09:15)
[2019-05-27] MEDS: LEVOTHYROXINE 112 MCG TAB PO SCH (09:26)
[2019-05-27] MEDS: SODIUM CHLORIDE 0.9% 1,000 ML IV SCH (09:27)
--- NOTE | 2019-05-27 10:42 | P.PN ---
Subjective Progress Note Date: 05/27/19 Principal diagnosis: Acute gastroenteritis of unclear etiology. The patient is seen today 05/27/2019 in follow-up on the regular medical floor. She is currently sitting up in a chair at the bedside. Awake and alert in no acute distress. She is on room air. Maintaining O2 saturations in the 90s. She's afebrile. Hemodynamically stable. Stool culture negative. Blood cultu res negative. She is continued on Zosyn and Flagyl. The patient has had ongoing diarrhea and is seen by GI services. Repeat C. difficile pending. If negative may undergo colonoscopy this admission. She remains quite weak and the plan is for [facility]. Objective - Vital Signs Vital signs: Vital Signs Temp 98.6 F 05/27/19 05:19 Pulse 79 05/27/19 05:19 Resp 18 05/27/19 05:19 BP 150/85 05/27/19 05:19 Pulse Ox 93 L 05/27/19 05:19 Intake & Output 05/26/19 05/27/19 05/27/19 18:59 06:59 18:59 Intake Total 662 160 Output Total 100 Balance 562 160 Weight 99.6 kg 99.8 kg Intake: Intake, IV Titration 160 Amount Piperacillin-Tazobactam 3 100 .375 gm In Sodium Chloride 0.9% 100 ml @ 25 mls/hr IVPB Q8HR [facility] Rx# :[id number] Sodium Chloride 0.9% 1, 60 000 ml @ 20 mls/hr IV . Q24H [facility] Rx#:[id number] Oral 662 Output: Urine 100 Other: Voiding Method Toilet Bedside Commode Bedside Commode Bedside Commode # Voids 1 1 # Bowel Movements 1 1 ABP, PAP, CO, CI - Last Documented Arterial Blood Pressure 140/64 - Exam GENERAL EXAM: Awake, alert 78-year-old female patient, up in the recliner, currently on room air. HEAD: Normocephalic/atraumatic. EYES: Normal reaction of pupils, equal size. Conjunctiva pink, sclera white. NOSE: Clear with pink turbinates. THROAT: No erythema or exudates. NECK: No masses, no JVD, no thyroid enlargement, no adenopathy. CHEST: No chest wall deformity. Symmetrical expansion. LUNGS: Equal air entry with diminished breath sounds at the bases. No rhonchi or wheezing CVS: Regular rate and rhythm, normal S1 and S2, no gallops, no rubs. 3/6 systolic ejection murmur heard over the apex radiating to the neck area ABDOMEN: Soft, nontender. No hepatosplenomegaly, normal bowel sounds, no gu arding or rigidity. EXTREMITIES: No clubbing, no edema, no cyanosis, 2+ pulses and upper and lower e xtremities. MUSCULOSKELETAL: Muscle strength somewhat weak with normal tone. SPINE: No scoliosis or deformity SKIN: No rashes CENTRAL NERVOUS SYSTEM: Alert and oriented 3. No focal deficits, tone is normal in all 4 extremities. - Labs CBC & Chem 7: 05/25/19 05:15 05/25/19 05:15 Labs: Abnormal Lab Results - Last 24 Hours (Table) 05/26/19 05/26/19 05/26/19 Range/Units 11:57 16:39 20:53 POC Glucose (mg/dL) 179 H 201 H 228 H (75-99) mg/dL 05/27/19 Range/Units 07:06 POC Glucose (mg/dL) 102 H (75-99) mg/dL Assessment and Plan Assessment: Assessment: 1 acute severe gastroenteritis of unclear etiology. Stool cultures negative. Earlier C. difficile screen negative. Now for possible colonoscopy if follow-up C. difficile screen is again negative. She has been on antibiotics for 9 days now. 2 acute hypercapnic respiratory failure and generalized weakness, doubt GBS. Recovered and on room air. 3 acute kidney injury secondary to hypotension and acute tubular necrosis, possibly secondary to hypovolemia, patient presented with severe gastroent eritis. 4 history of aortic valve disease and previous replacement 5 secondary pulmonary hypertension 6 chronic atrial fibrillation, being followed by cardiology 7 Parkinson's disease 8 episodes of altered mental status requiring BiPAP for elevated pCO2 and hypercapnia, recovered and on room air. 9 hypothyroidism 10 hyperlipidemia 11 type 2 diabetes 12 history of coronary artery disease and previous CABG Plan: The patient was seen and evaluated by Dr. Blakely. She remains stable from the pulmonary and critical care standpoint. On room air now. Follow-up C. difficile screen pending. She may require colonoscopy this admission. Plan is for [facility] due to her profound weakness during this hospitalization. I, the cosigning physician, performed a history & physical examination of the patient. Lungs sounds diminished on the left base. Maintaining good O2 saturations in the 90s on room air. I discussed the assessment and plan of care with my nurse practitioner, Kristan Kingsley. I attest to the above note as dictated by her.
[2019-05-27 11:33] LABS: Glucose,Whole Blood 158 mg/dL (75-99)
--- NOTE | 2019-05-27 14:18 | P.DS ---
Providers Date of admission: 05/18/19 17:18 Expected date of discharge: 05/27/19 Attending physician: Rikki Cha MD Consults: 05/18/19 17:18 Consult Physician Urgent Consulting Provider: Navya Galindo Consult Reason/Comments: icu Do you want consulting provider notified?: Yes 05/19/19 09:09 Consult Physician Urgent Consulting Provider: Addy Betts Consult Reason/Comments: increased creatinine Do you want consulting provider notified?: Yes 05/19/19 23:58 Consult Physician Urgent Consulting Provider: Tashia Mensah Consult Reason/Comments: increased confusion, code stroke Do you want consulting provider notified?: Already Contacted 05/20/19 10:48 Consult Physician Urgent Consulting Provider: Shirin Byers Consult Reason/Comments: afib Do you want consulting provider notified?: Yes 05/23/19 06:52 Consult Physician Urgent Consulting Provider: Tashia Mensah Consult Reason/Comments: weakness, ? guilliain [place] Do you want consulting provider notified?: Yes 05/26/19 14:17 Consult Physician Routine Consulting Provider: Neida Michaels Consult Reason/Comments: diarrhea Do you want consulting provider notified?: Yes Primary care physician: Deandre nikki Hospital Course: Discharge Diagnosis: Chronic diarrhea with severe gastroenteritis Acute kidney injury secondary to hypotension Hypovolemic shock Acute hypercapnic respiratory failure Aortic valve replacement Secondary pulmonary hypertension Chronic atrial fibrillation Parkinson's disease Metabolic encephalopathy secondary to hypercapnia Hypothyroidism Dyslipidemia Diabetes mellitus type 2 History of coronary artery disease status post CABG Morbid obesity with BMI 36.6 Hospital Course: Patient is a 78-year-old female past medical history of coronary artery disease status post CABG with aortic valve replacement, paroxysmal atrial fibrillation on Eliquis, diastolic congestive heart failure with pulmonary hypertension, diabetes mellitus, hypertension, dyslipidemia, and Parkinson's disease who presented to the emergency department secondary to multiple episodes of diarrhea. In the ER they diagnosed her with severe sepsis. She underwent a CT abdomen and pelvis which showed ischemic or inflammatory colitis. She was given IV fluids as well as IV antibiotics and admitted to the ICU. She was also noted to have acute kidney injury and severe lactic acidosis with a lactic acid 9. She continued to have persistent hypotension in the ICU and was subsequently started on Levaquin 5. On 05/19 she was noted to have confusion and altered mentation is concern for possible CVA. A code stroke was activated. Neurology evaluated the patient and felt that her altered mentation was due to metabolic encephalopathy secondary to sepsis and a chaotic. She underwent a carotid duplex and a CT of the brain which were unremarkable. Nephrology was consulted and recommended IV fluids as her acute kidney injury was likely secondary to severe dehydration from her diarrhea. Her mentation patient continued to worsen EKG was obtained which demonstrated hypercapnia. She was subsequently placed on BiPAP therapy and her mentation improved. Patient was noticed to have worsening ascending weakness more pronounced in the lower extremity. Neurology again reevaluated the patient for possible Guillain-Hernandez syndrome, they felt this was unlikely. On 05/25 she was doing so well she was able to be transferred to the selective care unit. She was seen by cardiology and was started on IV diuretics secondary to fluid retention her lower extremities. She continued to improve and was determined stable for discharge. She seen by Dr. Ding of GI who recommended colonoscopy. Due to improvement in her diarrhea and the fact that patient is on Eliquis this is determined most appropriate to be done in the outpatient setting. She'll follow up with Dr. Ding in 1-2 weeks for colonoscopy. She will be discharged to [facility] for rehab therapy. She will have a repeat basic metabolic profile in 3-4 days for reassessment of kidney function and potassium. She will continue on her diabetic diet. She will not resume her metformin as this could worsen her diarrhea and she will maintain on Levemir 10 units at night. She should have Accu-Cheks 3 times daily. She completed 7 days of antibiotics prior to discharge and is a lot be continued. Patient seen and examined at bedside. Only 2 episodes of stool last 24 hours which were formed. She denies any chest pain, shortness breath, nausea or vomiting. Vital signs reviewed and stable. General: non toxic, no distress, appears at stated age Derm: warm, dry Head: atraumatic, normocephalic, symmetric Eyes: EOMI, no lid lag, anicteric sclera Mouth: no lip lesion, mucus membranes moist Cardiovascular: S1S2 reg, no murmur, positive posterior tibial pulse bilateral, Lungs: Decreased breath sounds bilateral, no rhonchi, no rales , no accessory muscle use Abdominal: soft, nontender to palpation, no guarding, no appreciable organomegaly Ext: no gross muscle atrophy, 2 + edema, no contractures Neuro: CN II-XI grossly intact, no focal neuro deficits Psych: Alert, oriented, appropriate affect A total of 35 minutes of time were spent preparing this complex discharge summary . Pertinent Studies: Acute abdominal series-mild cardiomegaly CT abdomen and pelvis-inflammatory/infective colitis Echocardiogram-ejection fraction 45-50%, moderate concentric LVH, severe pulmonary hypertension CT head-cerebral atrophy, no acute intracranial abnormality, sinusitis Carotid Doppler-mild degree of plaquing not hemodynamically significant EEG/EMG, abnormal with extensive background slowing consistent with metabolic encephalopathy Patient Condition at Discharge: Stable Plan - Discharge Summary Discharge Rx Participant: No New Discharge Prescriptions: New Furosemide [Lasix] 40 mg PO DAILY tab Levothyroxine Sodium [Synthroid] 112 mcg PO DAILY@0630 #0 tab Loperamide [Imodium] 2 mg PO QID PRN #30 capsule PRN Reason: Diarrhea Potassium Chloride ER [K-Dur 20] 20 meq PO DAILY #30 tab Insulin Detemir (Levemir) [Levemir] 10 unit SQ HS syr Continue Simvastatin [Zocor] 20 mg PO HS Carbidopa-Levodopa 25-100 mg [Sinemet 25-100 mg] 1 tab PO QID Aspirin 81 mg PO DAILY chew Apixaban [Eliquis] 5 mg PO BID #60 tab glipiZIDE [Glucotrol] 5 mg PO AC-BRKFST Amiodarone [Cordarone] 200 mg PO DAILY Metoprolol Tartrate [Lopressor] 25 mg PO BID Gabapentin [Neurontin] 300 mg PO BID #60 cap Discontinued metFORMIN HCL [Glucophage] 1,000 mg PO BID Furosemide [Lasix] 40 mg PO BID #60 tab Levothyroxine Sodium [Synthroid] 137 mcg PO DAILY #30 tab Naproxen [Naprosyn] 500 mg PO Q12HR PRN #0 PRN Reason: Pain Benazepril [Lotensin] 10 mg PO DAILY Discharge Medication List Simvastatin [Zocor] 20 mg PO HS 09/29/16 [History] Carbidopa-Levodopa 25-100 mg [Sinemet 25-100 mg] 1 tab PO QID 01/05/19 [History] Apixaban [Eliquis] 5 mg PO BID #60 tab 01/09/19 [Rx] Aspirin 81 mg PO DAILY chew 01/09/19 [Rx] Amiodarone [Cordarone] 200 mg PO DAILY 05/18/19 [History] Metoprolol Tartrate [Lopressor] 25 mg PO BID 05/18/19 [History] glipiZIDE [Glucotrol] 5 mg PO AC-BRKFST 05/18/19 [History] Furosemide [Lasix] 40 mg PO DAILY tab 05/26/19 [Rx] Levothyroxine Sodium [Synthroid] 112 mcg PO DAILY@0630 #0 tab 05/26/19 [Rx] Gabapentin [Neurontin] 300 mg PO BID #60 cap 05/27/19 [Rx] Insulin Detemir (Levemir) [Levemir] 10 unit SQ HS syr 05/27/19 [Rx] Loperamide [Imodium] 2 mg PO QID PRN #30 capsule 05/27/19 [Rx] Potassium Chloride ER [K-Dur 20] 20 meq PO DAILY #30 tab 05/27/19 [Rx] Follow up Appointment(s)/Referral(s): Neida Michaels MD [STAFF PHYSICIAN] - 06/17/19 9:20 am [facility], [NON-STAFF] - 1-2 Days Deandre Bartholomew MD [Primary Care Provider] - 1-2 days Discharge Disposition: TRANSFER TO SNF/ECF
--- NOTE | 2019-05-27 15:43 | PN ---
PROGRESS NOTE DATE OF SERVICE: 05/27/2019 Patient is a 78-year-old pleasant white female admitted to hospital 9 days ago with severe acute gastroenteritis with nausea, vomiting, diarrhea, and acute kidney injury. Subsequently developed fluid overload and admitted to the intensive care unit with acute respiratory failure. She was transferred from the ICU 2 days ago. She is doing much better. She had about 2 bowel movements today. Still they are loose in consistency but no significant diarrhea. Repeat stool cultures and C difficile toxin at the time of admission to the hospital was negative. The patient has been on empiric antibiotics for acute bacterial gastroenteritis and her symptoms are gradually improving. She was seen in consultation yesterday for the ongoing diarrhea of 3 weeks' duration. She is doing better today. Possibly discharged to long-term today for rehab. PHYSICAL EXAMINATION: She appears comfortable, in no apparent distress. VITAL SIGNS: Stable. Blood pressure is 132/88, pulse rate 89 per minute and afebrile. HEENT: Examination unremarkable. Conjunctivae are pink, sclerae nonicteric, oral cavity no lesion. NECK: No JVD or lymph node enlargement. CHEST: Clear to auscultation. HEART: Regular rate and rhythm. ABDOMEN: Soft, bowel sounds are positive. No organomegaly. EXTREMITIES: No pedal edema. NEURO: She is alert and oriented x3. No focal deficits. LABS: No labs available from today. Repeat C difficile toxin was requested and negative. IMPRESSION: 1. Chronic diarrhea of 3 weeks' duration. Patient admitted to the hospital 10 days ago with severe dehydration, acute kidney injury, fluid resuscitation and on antibiotics and her symptoms are gradually improving. Stool studies so far have been negative. Repeat C difficile toxin is still pending. 2. Acute respiratory failure, was intubated and extubated 3 days ago, now doing well. 3. Atrial fibrillation on Eliquis. RECOMMENDATION: 1. Since patient diarrhea is improving, we can start her on Imodium 1 tablet twice daily as needed. 2. She can be discharged to a rehab institute. 3. Will plan an outpatient colonoscopy in 2-3 weeks following discharge from the hospital. The plan was discussed with the patient as well as the family who was at the bedside. Thank you for this consultation. MMODL / IJN: [id number] /
== END 2019-05-27 14:43 | DRG 391 ==
LOC: EC 14:22 → 2SICU 17:18 → 3SCARD 05-25 12:28 → 3NMEDONC 05-26 23:48 → 4MS4W 05-27 07:38
PROVIDERS: ADMIT Family Medicine; ATTEND Family Medicine
PROC: 5A09557 Assistance with Respiratory Ventilation, Greater than 96 Consecutive Hours, Continuous Positive Airway Pressure (ICD-10-PCS; principal; 2019-05-20)
PROC: 03HY32Z Insertion of Monitoring Device into Upper Artery, Percutaneous Approach (ICD-10-PCS; 2019-05-20)
PROC: 4A133B1 Monitoring of Arterial Pressure, Peripheral, Percutaneous Approach (ICD-10-PCS; 2019-05-20)
PROC: 4A133J1 Monitoring of Arterial Pulse, Peripheral, Percutaneous Approach (ICD-10-PCS; 2019-05-20)
DX: K52.9 Noninfective gastroenteritis and colitis, unspecified (principal); N17.0 Acute kidney failure with tubular necrosis; G93.41 Metabolic encephalopathy; R57.1 Hypovolemic shock; J96.01 Acute respiratory failure with hypoxia; J96.02 Acute respiratory failure with hypercapnia; I48.92 Unspecified atrial flutter; I13.0 Hypertensive heart and chronic kidney disease with heart failure and stage 1 through stage 4 chronic kidney disease, or unspecified chronic kidney disease; I50.32 Chronic diastolic (congestive) heart failure; E87.4 Mixed disorder of acid-base balance; I47.1 Supraventricular tachycardia; I48.19 Other persistent atrial fibrillation; I25.10 Atherosclerotic heart disease of native coronary artery without angina pectoris; E11.22 Type 2 diabetes mellitus with diabetic chronic kidney disease; E11.65 Type 2 diabetes mellitus with hyperglycemia; E11.42 Type 2 diabetes mellitus with diabetic polyneuropathy; G20 Parkinson's disease; E87.5 Hyperkalemia; I27.29 Other secondary pulmonary hypertension; E11.649 Type 2 diabetes mellitus with hypoglycemia without coma; E83.39 Other disorders of phosphorus metabolism; E66.01 Morbid (severe) obesity due to excess calories; N18.3 Chronic kidney disease, stage 3 (moderate); I34.0 Nonrheumatic mitral (valve) insufficiency; D64.9 Anemia, unspecified; R29.810 Facial weakness; E03.9 Hypothyroidism, unspecified; E78.00 Pure hypercholesterolemia, unspecified; E78.5 Hyperlipidemia, unspecified; K59.00 Constipation, unspecified; I49.3 Ventricular premature depolarization; M19.90 Unspecified osteoarthritis, unspecified site; R32 Unspecified urinary incontinence; Z68.36 Body mass index [BMI] 36.0-36.9, adult; Z79.01 Long term (current) use of anticoagulants; Z79.82 Long term (current) use of aspirin; Z79.890 Hormone replacement therapy; Z79.84 Long term (current) use of oral hypoglycemic drugs; Z79.899 Other long term (current) drug therapy; Z87.01 Personal history of pneumonia (recurrent); Z90.49 Acquired absence of other specified parts of digestive tract; Z95.1 Presence of aortocoronary bypass graft; Z95.2 Presence of prosthetic heart valve; Z98.42 Cataract extraction status, left eye; Z98.41 Cataract extraction status, right eye; Z86.79 Personal history of other diseases of the circulatory system; Z82.49 Family history of ischemic heart disease and other diseases of the circulatory system; Z80.9 Family history of malignant neoplasm, unspecified
CPT/HCPCS: 36415; 36600; 70450; 71045; 74022; 74176; 80048; 80053; 81001; 82009; 82140; 82550; 82805; 83036; 83605; 83630; 83735; 84100; 84145; 84439; 84443; 84484; 85025; 85027; 85610; 85730; 87040; 87045; 87046; 87324; 93005; 93306; 93880; 94660; 95816; 96361; 96365; 96375; 99291

== ENCOUNTER 2019-06-21 10:51 | Inpatient (IN) | payer MEDICARE ==
[2019-06-21] MEDS ORDERED: SODIUM CHLORIDE 0.9% 500 ML 500 ML IV STA (11:25)
--- NOTE | 2019-06-21 11:38 | ED ---
General Adult HPI - General Chief complaint: Shortness of Breath Stated complaint: Sob Time Seen by Provider: 06/21/19 11:09 Source: patient, family Mode of arrival: wheelchair Limitations: no limitations - History of Present Illness Initial comments: Dictation was produced using [employer] dictation software. please excuse any grammatical, word or spelling errors. Chief Complaint: 78 with multiple comorbidities presents with dyspnea and worsening weakness. History of Present Illness: 78-year-old female she has past medical history atrial fibrillation, on anticoagulant therapy, diabetes, dyslipidemia, hypertension. She presents today with family friend who reports that she's been having worsening weakness and shortness of breath. They do have a home pulse ox monitor. She was found to have hypoxia at home with measurements ranging from the high 70s and low 80s. Patient was recently admitted to the hospital where she was initially diagnosed with concerns for sepsis. She was maintained in the intensive care unit with a lactic acidosis 9. She was also evaluated by multiple specialists and was found to have acute encephalopathy, inflammatory bowel, severe pulmonary hypertension. She is discharged with home oxygen 2 rehab facility. Patient was recently discharged from rehab facility was at home. Patient does have home health care nurse who cares for at home. Patient has been having worsening weakness. She tried to attempt standing up earlier today and fell sideways. She denies hitting her head. This fall was unwitnessed. Patient is on apixaban for atrial fibrillation. She is short of breath at rest however definitely worse with any sort of activity. Denies a fever, chills or night sweats., Family friend concern that the way she is behaving is similar to when she was seen in the emergency department earlier this month and was admitted to the hospital. The ROS documented in this emergency department record has been reviewed and confirmed by me. Those systems with pertinent positive or negative responses have been documented in the HPI. All other systems are other negative and/or noncontributory. PHYSICAL EXAM: General Impression: Alert and oriented x3, not in acute distress HEENT: Normocephalic atraumatic, extra-ocular movements intact, pupils equal and reactive to light bilaterally, mucous membranes moist. Cardiovascular: Heart regular rate and rhythm, S1&S2 audible, no murmurs, rubs or gallops Chest: Diffuse crackles worse in the right lung base compared to the left Abdomen: Bowel sounds present, abdomen soft, non-tender, non-distended, no organomegaly Musculoskeletal: Pulses present and equal in all extremities, nonpitting edema to the bilateral lower extremities Motor: no focal deficits noted Neurological: CN II-XII grossly intact, no focal motor or sensory deficits noted Skin: Intact with no visualized rashes Psych: Normal affect and mood ED course: 78-year-old female presents with hypoxia at home, worsening dyspnea and worsening weakness. Vital signs upon arrival are within acceptable limits. Patient is maintaining good oxygen and her 2.5 L of nasal cannula oxygen. When asked to sit forward patient became significantly worse short of breath. She does have positive lung auscultatory findings. There is likely multifactorial reason for patient's symptoms including significant deconditioning from continuous bed rest. Objective evaluation obtained. Hemoglobin is 10.2 stable. Rest of CBC unremarkable. Coag panel negative. Metabolic panel shows potassium of 6.7 with alkalosis. Patient treated with hyperkalemia cocktail. She is given in travenous fluids for acute kidney injury. Elevated renal markers. Lactic acidosis of 3.1. Venous blood gases shows normal pH with a pCO2 of 70 and adequate metabolic compensation. Troponin 0.023 likely elevated from renal failure, nitric peptide 21,000. Chest x-ray obtained showing CHF. Patient will be admitted to metabolic abnormality. Cardiology, pulmonology and nephrology CONSULTED. Patient with some physician team. EKG interpretation: Ventricular rate 63, A. fib, QRS 176, QTC 468 prolongation, no QTC prolongation, no ST or T-wave changes noted. EKG compared to 05/18/2019 showing no changes. Overall, this EKG is unremarkable - Related Data Home Medications Medication Instructions Recorded Confirmed Simvastatin [Zocor] 20 mg PO HS 09/29/16 06/21/19 Carbidopa-Levodopa 25-100 mg 1 tab PO QID 01/05/19 06/21/19 [Sinemet 25-100 mg] Amiodarone [Cordarone] 200 mg PO DAILY 05/18/19 06/21/19 Metoprolol Tartrate [Lopressor] 25 mg PO BID 05/18/19 06/21/19 glipiZIDE [Glucotrol] 5 mg PO AC-BRKFST 05/18/19 06/21/19 metFORMIN HCL 1,000 mg PO BID 06/21/19 06/21/19 Previous Rx's Medication Instructions Recorded Apixaban [Eliquis] 5 mg PO BID #60 tab 01/09/19 Aspirin 81 mg PO DAILY chew 01/09/19 Furosemide [Lasix] 40 mg PO DAILY tab 05/26/19 Levothyroxine Sodium [Synthroid] 112 mcg PO DAILY@0630 #0 tab 05/26/19 Gabapentin [Neurontin] 300 mg PO BID #60 cap 05/27/19 Loperamide [Imodium] 2 mg PO QID PRN #30 capsule 05/27/19 Potassium Chloride ER [K-Dur 20] 20 meq PO DAILY #30 tab 05/27/19 Allergies Allergy/AdvReac Type Severity Reaction Status Date / Time No Known Allergies Allergy Verified 06/21/19 11:22 Review of Systems ROS Statement: Those systems with pertinent positive or pertinent negative responses have been documented in the HPI. ROS Other: All systems not noted in ROS Statement are negative. Past Medical History Past Medical History: Atrial Fibrillation, Coronary Artery Disease (CAD), Heart Failure, Diabetes Mellitus, Hyperlipidemia, Hypertension, Osteoarthritis (OA), Pneumonia, Thyroid Disorder Additional Past Medical History / Comment(s): Leaky valve, Parkinsons, neuropathy legs, Pneumonia 2 yrs ago. Constipation History of Any Multi-Drug Resistant Organisms: None Reported Past Surgical History: Cholecystectomy, Coronary Bypass/CABG, Heart Catheterization Additional Past Surgical History / Comment(s): Aortic valve replacement with double cardiac bypass surgery(2010), bilateral cataracts removed. Cardioversion 02/05/19. Past Anesthesia/Blood Transfusion Reactions: No Reported Reaction Past Psychological History: No Psychological Hx Reported Smoking Status: Never smoker Past Alcohol Use History: None Reported Past Drug Use History: None Reported - Past Family History Father Family Medical History: Myocardial Infarction ([place]) Mother Family Medical History: Cancer Additional Family Medical History / Comment(s): in her sleep at 89. General Exam Limitations: no limitations Course Vital Signs 06/21/19 06/21/19 06/21/19 10:57 13:05 13:19 Temperature 98.1 F Pulse Rate 71 70 73 Respiratory 18 Rate Blood Pressure 126/65 O2 Sat by Pulse 95 Oximetry Medical Decision Making - Lab Data Result diagrams: 06/21/19 11:37 06/21/19 11:37 Lab Results 06/21/19 06/21/19 06/21/19 Range/Units 11:37 11:37 11:37 WBC 7.0 (3.8-10.6) k/uL RBC 3.16 L (3.80-5.40) m/uL Hgb 10.2 L (11.4-16.0) gm/dL Hct 32.4 L (34.0-46.0) % MCV 102.4 H D (80.0-100.0) fL MCH 32.4 (25.0-35.0) pg MCHC 31.6 (31.0-37.0) g/dL RDW 13.5 (11.5-15.5) % Plt Count 192 (150-450) k/uL Neutrophils % 81 % Lymphocytes % 12 % Monocytes % 4 % Eosinophils % 1 % Basophils % 1 % Neutrophils # 5.6 (1.3-7.7) k/uL Lymphocytes # 0.9 L (1.0-4.8) k/uL Monocytes # 0.3 (0-1.0) k/uL Eosinophils # 0.1 (0-0.7) k/uL Basophils # 0.0 (0-0.2) k/uL Hypochromasia Slight Macrocytosis Slight PT (9.0-12.0) sec INR (<1.2) APTT (22.0-30.0) sec VBG pH (7.31-7.41) VBG pCO2 (37-51) mmHg VBG HCO3 (24-28) mmol/L Sodium 137 (137-145) mmol/L Potassium 6.7 H* (3.5-5.1) mmol/L Chloride 91 L (98-107) mmol/L Carbon Dioxide 36 H (22-30) mmol/L Anion Gap 10 mmol/L BUN 56 H (7-17) mg/dL Creatinine 2.12 H (0.52-1.04) mg/dL Est GFR (CKD-EPI)AfAm 25 (>60 ml/min/1.73 sqM) Est GFR (CKD-EPI)NonAf 22 (>60 ml/min/1.73 sqM) Glucose 217 H (74-99) mg/dL Plasma Lactic Acid Wild (0.7-2.0) mmol/L Calcium 9.4 (8.4-10.2) mg/dL Magnesium 2.1 (1.6-2.3) mg/dL Total Bilirubin 0.8 (0.2-1.3) mg/dL AST 21 (14-36) U/L ALT 9 (9-52) U/L Alkaline Phosphatase 51 (38-126) U/L Ammonia (<30) umol/L Troponin I (0.000-0.034) ng/mL NT-Pro-B Natriuret Pep 66768 pg/mL Total Protein 6.9 (6.3-8.2) g/dL Albumin 4.0 (3.5-5.0) g/dL 06/21/19 06/21/19 06/21/19 Range/Units 11:37 11:37 11:37 WBC (3.8-10.6) k/uL RBC (3.80-5.40) m/uL Hgb (11.4-16.0) gm/dL Hct (34.0-46.0) % MCV (80.0-100.0) fL MCH (25.0-35.0) pg MCHC (31.0-37.0) g/dL RDW (11.5-15.5) % Plt Count (150-450) k/uL Neutrophils % % Lymphocytes % % Monocytes % % Eosinophils % % Basophils % % Neutrophils # (1.3-7.7) k/uL Lymphocytes # (1.0-4.8) k/uL Monocytes # (0-1.0) k/uL Eosinophils # (0-0.7) k/uL Basophils # (0-0.2) k/uL Hypochromasia Macrocytosis PT 11.6 (9.0-12.0) sec INR 1.1 (<1.2) APTT 26.8 (22.0-30.0) sec VBG pH (7.31-7.41) VBG pCO2 (37-51) mmHg VBG HCO3 (24-28) mmol/L Sodium (137-145) mmol/L Potassium (3.5-5.1) mmol/L Chloride (98-107) mmol/L Carbon Dioxide (22-30) mmol/L Anion Gap mmol/L BUN (7-17) mg/dL Creatinine (0.52-1.04) mg/dL Est GFR (CKD-EPI)AfAm (>60 ml/min/1.73 sqM) Est GFR (CKD-EPI)NonAf (>60 ml/min/1.73 sqM) Glucose (74-99) mg/dL Plasma Lactic Acid Wild 3.1 H* (0.7-2.0) mmol/L Calcium (8.4-10.2) mg/dL Magnesium (1.6-2.3) mg/dL Total Bilirubin (0.2-1.3) mg/dL AST (14-36) U/L ALT (9-52) U/L Alkaline Phosphatase (38-126) U/L Ammonia 10 (<30) umol/L Troponin I 0.023 (0.000-0.034) ng/mL NT-Pro-B Natriuret Pep pg/mL Total Protein (6.3-8.2) g/dL Albumin (3.5-5.0) g/dL 06/21/19 Range/Units 11:37 WBC (3.8-10.6) k/uL RBC (3.80-5.40) m/uL Hgb (11.4-16.0) gm/dL Hct (34.0-46.0) % MCV (80.0-100.0) fL MCH (25.0-35.0) pg MCHC (31.0-37.0) g/dL RDW (11.5-15.5) % Plt Count (150-450) k/uL Neutrophils % % Lymphocytes % % Monocytes % % Eosinophils % % Basophils % % Neutrophils # (1.3-7.7) k/uL Lymphocytes # (1.0-4.8) k/uL Monocytes # (0-1.0) k/uL Eosinophils # (0-0.7) k/uL Basophils # (0-0.2) k/uL Hypochromasia Macrocytosis PT (9.0-12.0) sec INR (<1.2) APTT (22.0-30.0) sec VBG pH 7.33 (7.31-7.41) VBG pCO2 70 H* (37-51) mmHg VBG HCO3 36 H (24-28) mmol/L Sodium (137-145) mmol/L Potassium (3.5-5.1) mmol/L Chloride (98-107) mmol/L Carbon Dioxide (22-30) mmol/L Anion Gap mmol/L BUN (7-17) mg/dL Creatinine (0.52-1.04) mg/dL Est GFR (CKD-EPI)AfAm (>60 ml/min/1.73 sqM) Est GFR (CKD-EPI)NonAf (>60 ml/min/1.73 sqM) Glucose (74-99) mg/dL Plasma Lactic Acid Wild (0.7-2.0) mmol/L Calcium (8.4-10.2) mg/dL Magnesium (1.6-2.3) mg/dL Total Bilirubin (0.2-1.3) mg/dL AST (14-36) U/L ALT (9-52) U/L Alkaline Phosphatase (38-126) U/L Ammonia (<30) umol/L Troponin I (0.000-0.034) ng/mL NT-Pro-B Natriuret Pep pg/mL Total Protein (6.3-8.2) g/dL Albumin (3.5-5.0) g/dL Disposition Clinical Impression: NICA (acute kidney injury), Acidosis Disposition: ADMITTED IP TO THIS [facility] Condition: Critical Referrals: Deandre Bartholomew MD [Primary Care Provider] - 1-2 days Decision Time: 14:32
[2019-06-21 12:06] LABS: Basophils % (A) 1 %; Eosinophils # (A) 0.1 k/uL (0-0.7); Eosinophils % (A) 1 %; HCT 32.4 % (34.0-46.0); HGB 10.2 gm/dL (11.4-16.0); Hypochromasia Slight; Lymphocytes # (A) 0.9 k/uL (1.0-4.8); Lymphocytes % (A) 12 %; MCH 32.4 pg (25.0-35.0); MCHC 31.6 g/dL (31.0-37.0); MCV 102.4 fL (80.0-100.0); Macrocytosis Slight; Mean Platelet Volume 6.4; Monocytes # (A) 0.3 k/uL (0-1.0); Monocytes % (A) 4 %; Neutrophils # (A) 5.6 k/uL (1.3-7.7); Neutrophils % (A) 81 %; Platelet Count 192 k/uL (150-450); RBC 3.16 m/uL (3.80-5.40); RDW 13.5 % (11.5-15.5)
[2019-06-21 12:07] LABS: INR 1.1 (<1.2); Partial Thromboplastin Time 26.8 sec (22.0-30.0); Prothrombin Time 11.6 sec (9.0-12.0)
[2019-06-21 12:11] LABS: VBG PH 7.33 (7.31-7.41)
[2019-06-21 12:18] LABS: Lactic Acid, Venous 3.1 mmol/L (0.7-2.0)
[2019-06-21 12:19] LABS: Calcium 9.4 mg/dL (8.4-10.2); Magnesium 2.1 mg/dL (1.6-2.3); Total Bilirubin 0.8 mg/dL (0.2-1.3); Total Protein 6.9 g/dL (6.3-8.2)
[2019-06-21 12:26] LABS: Potassium 6.7 mmol/L (3.5-5.1)
[2019-06-21] MEDS ORDERED: ALBUTEROL NEB (CONC) 2.5 MG/0.5 ML INHALATION ONE (12:27)
[2019-06-21] MEDS ORDERED: DEXTROSE 10 % IN WATER 250 ML IV ONE (12:27)
[2019-06-21] MEDS ORDERED: INSULIN REGULAR 100 UNIT/ML VIAL IV ONE ×2 (12:27→21:28)
[2019-06-21] MEDS ORDERED: CALCIUM GLUCONATE 1 GM in SODIUM CHLORIDE 0.9% 100 ML IVPB ONE (12:30)
--- NOTE | 2019-06-21 13:06 | XR ---
EXAMINATION TYPE: XR chest 2V DATE OF EXAM: 06/21/2019 COMPARISON: Prior chest x-ray 05/25/2019 HISTORY: Hypoxia, shortness of breath TECHNIQUE: Frontal and lateral views of the chest are obtained on 3 images. FINDINGS: Patient is post median sternotomy and the heart is again enlarged. There is interval devel opment of increased density at the lung bases, blunting the costophrenic angles. Central vascularity and interstitium are increased. No evident pneumothorax. There are overlying cardiac leads. Patient i s status post aortic valve replacement. IMPRESSION: Correlate for congestive heart failure and small effusions.
[2019-06-21] MEDS ORDERED: NALOXONE 0.4 MG/ML 1 ML VIAL IV PRN ×2 (14:28→16:48)
[2019-06-21 14:38] LABS: Glucose,Whole Blood 288 mg/dL (75-99)
[2019-06-21] MEDS ORDERED: CARBIDOPA-LEVODOPA 25-100 MG 1 EACH TAB PO STA (15:48)
--- NOTE | 2019-06-21 16:06 | P.CRDCN ---
History of Present Illness Consult date: 06/21/19 Requesting physician: Favio Nickerson Consult reason: congestive heart failure Chief complaint: Shortness of breath and lower extremity edema History of present illness: This is a 78-year-old female with history of coronary artery disease and prior bypass surgery as well as aortic valve replacement, chronic persistent atrial fibrillation, her condition, diabetes, hypertension, hyperlipidemia, hypothyroidism, she follows regularly with Dr. Berry in the office. Patient underwent a DON in December 2018, she was found to have a properly functioning prosthetic valve, she also underwent a cardioversion for atrial fibrillation. Most recent cardiac catheterization was performed in February of this year, patent vein graft to the RCA and LAD. She is admitted to the hospital on this occasion with symptoms of fairly sudden onset of shortness of breath and peripheral edema. According to the patient, it started only a day and a half ago. Prior to that she states that she was feeling fine. On further questioning, patient does state that she's noticed edema longer than that. As x-ray on admission showed congestive heart failure and small effusion. EKG shows atrial fibrillation with a slow ventricular response. I pressure 118/60 with a heart rate in the 70s, 93% on 3 L of oxygen. White blood cell count 7.0, hemoglobin 10.2, platelet count 192. PH 7.3, pCO2 70, HCO3 36. Sodium 137, potassium 6.7, BUN 56, creatinine 2.1. Plasma lactic acid 3.1 on admission. Magnesium 2.1. Troponin 0.023. BNP level 21,200. The time of my examination, patient appears quite short of breath. We will initiate some IV Lasix. Past Medical History Past Medical History: Atrial Fibrillation, Coronary Artery Disease (CAD), Heart Failure, Diabetes Mellitus, Hyperlipidemia, Hypertension, Osteoarthritis (OA), Pneumonia, Thyroid Disorder Additional Past Medical History / Comment(s): Leaky valve, Parkinsons, neuropathy legs, Pneumonia 2 yrs ago. Constipation History of Any Multi-Drug Resistant Organisms: None Reported Past Surgical History: Cholecystectomy, Coronary Bypass/CABG, Heart Catheterization Additional Past Surgical History / Comment(s): Aortic valve replacement with double cardiac bypass surgery(2010), bilateral cataracts removed. Cardioversion 02/05/19. Past Anesthesia/Blood Transfusion Reactions: No Reported Reaction Past Psychological History: No Psychological Hx Reported Smoking Status: Never smoker Past Alcohol Use History: None Reported Past Drug Use History: None Reported - Past Family History Father Family Medical History: Myocardial Infarction ([place]) Mother Family Medical History: Cancer Additional Family Medical History / Comment(s): in her sleep at 89. Medications and Allergies Home Medications Medication Instructions Recorded Confirmed Type Simvastatin [Zocor] 20 mg PO HS 09/29/16 06/21/19 History Carbidopa-Levodopa 25-100 mg 1 tab PO QID 01/05/19 06/21/19 History [Sinemet 25-100 mg] Apixaban [Eliquis] 5 mg PO BID #60 tab 01/09/19 06/21/19 Rx Aspirin 81 mg PO DAILY chew 01/09/19 06/21/19 Rx Amiodarone [Cordarone] 200 mg PO DAILY 05/18/19 06/21/19 History Metoprolol Tartrate [Lopressor] 25 mg PO BID 05/18/19 06/21/19 History glipiZIDE [Glucotrol] 5 mg PO AC-BRKFST 05/18/19 06/21/19 History Furosemide [Lasix] 40 mg PO DAILY tab 05/26/19 06/21/19 Rx Levothyroxine Sodium [Synthroid] 112 mcg PO DAILY@0630 #0 tab 05/26/19 06/21/19 Rx Gabapentin [Neurontin] 300 mg PO BID #60 cap 05/27/19 06/21/19 Rx Loperamide [Imodium] 2 mg PO QID PRN #30 capsule 05/27/19 06/21/19 Rx Potassium Chloride ER [K-Dur 20] 20 meq PO DAILY #30 tab 05/27/19 06/21/19 Rx metFORMIN HCL 1,000 mg PO BID 06/21/19 06/21/19 History Allergies Allergy/AdvReac Type Severity Reaction Status Date / Time No Known Allergies Allergy Verified 06/21/19 11:22 Physical Exam Vitals: Vital Signs Temp Pulse Resp BP Pulse Ox 06/21/19 15:34 76 18 117/59 93 L 06/21/19 15:03 57 L 19 109/46 91 L 06/21/19 13:19 73 06/21/19 13:05 70 06/21/19 10:57 98.1 F 71 18 126/65 95 Intake and Output 06/21/19 06/21/19 06/21/19 06:59 14:59 22:59 Other: Weight 98.43 kg GENERAL: 78-year-old female in no acute distress at the time of my examination HEENT: Head is atraumatic, normocephalic. Pupils equal, round. Sclera anicteric. Conjunctiva are clear. Mucous membranes of the mouth are moist. Neck is supple. There is no elevated jugular venous pressure.No carotid bruit is heard. HEART EXAMNATION: heart S1-S2 irreg irreg a systolic murmur is heard. CHEST EXAMINATION: lungs reveal diminished air entry to bilateral bases ABDOMEN Soft, obese, notender. Bowel sounds are heard. No organomegaly noted. EXTREITIES: 2+ periperal pulses with 2+ evidence of peripheral edema and no calf tenderness noted]. NEUROLGIC patient i awake, alert and oriented 3 . Results 06/21/19 11:37 06/21/19 11:37 Cardiac Enzymes 06/21/19 06/21/19 Range/Units 11:37 11:37 AST 21 (14-36) U/L Troponin I 0.023 (0.000-0.034) ng/mL Coagulation 06/21/19 Range/Units 11:37 PT 11.6 (9.0-12.0) sec APTT 26.8 (22.0-30.0) sec CBC 06/21/19 Range/Units 11:37 WBC 7.0 (3.8-10.6) k/uL RBC 3.16 L (3.80-5.40) m/uL Hgb 10.2 L (11.4-16.0) gm/dL Hct 32.4 L (34.0-46.0) % Plt Count 192 (150-450) k/uL Comprehensive Metabolic Panel 06/21/19 Range/Units 11:37 Sodium 137 (137-145) mmol/L Potassium 6.7 H* (3.5-5.1) mmol/L Chloride 91 L (98-107) mmol/L Carbon Dioxide 36 H (22-30) mmol/L BUN 56 H (7-17) mg/dL Creatinine 2.12 H (0.52-1.04) mg/dL Glucose 217 H (74-99) mg/dL Calcium 9.4 (8.4-10.2) mg/dL AST 21 (14-36) U/L ALT 9 (9-52) U/L Alkaline Phosphatase 51 (38-126) U/L Total Protein 6.9 (6.3-8.2) g/dL Albumin 4.0 (3.5-5.0) g/dL Current Medications Generic Name Dose Route Start Last Admin Trade Name Freq PRN Reason Stop Dose Admin Acetaminophen 650 mg 06/21/19 14:28 Tylenol Tab PO Q6HR PRN Mild Pain or Fever > 100.5 Amiodarone HCl 200 mg 06/22/19 09:00 Cordarone PO DAILY [facility] Apixaban 5 mg 06/21/19 21:00 Eliquis PO BID [facility] Aspirin 81 mg 06/22/19 09:00 Aspirin PO DAILY [facility] Atorvastatin Calcium 10 mg 06/21/19 21:00 Lipitor PO HS [facility] Carbidopa/Levodopa 1 each 06/21/19 18:00 Sinemet 25-100 PO QID [facility] Glipizide 5 mg 06/22/19 07:30 Glucotrol PO AC-BRKFST [facility] Sodium Chloride 1,000 mls @ 20 mls/hr 06/21/19 14:30 Saline 0.9% IV .Q24H [facility] Levothyroxine Sodium 112 mcg 06/22/19 06:30 Synthroid PO DAILY@0630 [facility] Metoprolol Tartrate 25 mg 06/21/19 21:00 Lopressor PO BID [facility] Naloxone HCl 0.2 mg 06/21/19 14:28 Narcan IV Q2M PRN Opioid Reversal Pantoprazole Sodium 40 mg 06/22/19 09:00 Protonix IV DAILY [facility] Intake and Output 06/21/19 06/21/19 06/21/19 06:59 14:59 22:59 Other: Weight 98.43 kg Patient Weight 06/22/19 06:59 Weight 98.43 kg 06/21/19 11:37 06/21/19 11:37 EKG Interpretations (text) EKG shows atrial fibrillation with a controlled ventricular response Assessment and Plan Plan: Assessment and plan #1 diastolic congestive heart failure acute on chronic #2 acute on chronic kidney failure #3 history of aortic valve replacement and coronary artery bypass grafting surgery #4 chronic persistent atrial fibrillation #5 Parkinson's #6 hypothyroidism #7 hyperlipidemia #8 diabetes #9 chronic anemia #10 hyperkalemia Plan We'll repeat an echocardiogram with Doppler study. We will also start the patient on IV Lasix monitoring intake and output along with daily weights and daily lytes BUN and creatinine. Further recommendations to follow. DNP note has been reviewed, I agree with a documented findings and plan of care. Patient was seen and examined.
[2019-06-21] MEDS ORDERED: LOPERAMIDE 2 MG CAP PO PRN (16:58)
[2019-06-21 17:50] LABS: Amorphous Sediment,Urine Occasional /hpf; Appearance,Urine Turbid (Clear); Bacteria,Urine Moderate /hpf; Bilirubin,Urine Negative (Negative); Blood,Urine Moderate (Negative); Color,Urine Yellow; Glucose,Urine (UA) Negative (Negative); Hyaline Casts,Urine 9 /lpf (0-2); Ketones,Urine Negative (Negative); Leukocyte Esterase,Urine Large (Negative); Nitrite,Urine Negative (Negative); PH, Urine 5.5 (5.0-8.0); Protein,Urine 1+ (Negative); RBC,Urine 11 /hpf (0-5); Specific Gravity,Urine 1.016 (1.001-1.035); Squamous Epithelial Cell,Urine 99 /hpf (0-4)
[2019-06-21 18:11] LABS: Glucose,Whole Blood 179 mg/dL (75-99)
[2019-06-21] MEDS: INSULIN ASPART (NovoLOG) 100 UNIT/ML VIAL SQ SCH (18:15)
--- NOTE | 2019-06-21 18:55 | P.HPIM ---
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 This 78-year-old lady with past medical history significant for coronary artery disease status post coronary artery bypass graft surgery, status post bio-prosthetic AVR, atrial fibrillation on Eliquis, diabetes metastatic to, hypertension, hyperlipidemia, inflammatory bowel disease, pulmonary hypertension, Parkinson's disease, HFpEF on home O2 who presented to the emergency room with above complaints. Patient stated that she was doing fine I'll didn't a day or 2 ago when she started feeling that she is getting more short of breath and feeling weak. Patient was brought in to the hospital by her friend. Patient denies chest pain, chest pressure, palpitation, diaphoresis, dizziness, lightheadedness, headaches, nausea, vomiting, fever, chills, cough, sputum production, heat or cold intolerance and denies rest of the review system. Patient was evaluated in the emergency room and was noted to be in significant hyperkalemia with EKG changes and was treated according to the pr otocol. She was also noted to be in acute kidney injury on chronic kidney disease, mildly elevated lactic acid of 3.1, her pCO2 on ABG is was 70 which is worse, troponin 1 negative and her proBNP was 21,200. Patient was admitted with a working diagnosis of acute on chronic congestive heart failure hyperkalemia and their multiple medical conditions with cardiology, pulmonology, nephrology consult placement to the cardiac unit. Most of the history was taken from the medical records available as patient was getting short of breath with verbal communications. Review of Systems 12 point review of system was essentially negative other than as mentioned in HPI above. Past Medical History Past Medical History: Atrial Fibrillation, Coronary Artery Disease (CAD), Heart Failure, Diabetes Mellitus, Hyperlipidemia, Hypertension, Osteoarthritis (OA), Pneumonia, Thyroid Disorder Additional Past Medical History / Comment(s): Leaky valve, Parkinsons, neuropathy legs, Pneumonia 2 yrs ago. Constipation History of Any Multi-Drug Resistant Organisms: None Reported Past Surgical History: Cholecystectomy, Coronary Bypass/CABG, Heart Catheterization Additional Past Surgical History / Comment(s): Aortic valve replacement with double cardiac bypass surgery(2010), bilateral cataracts removed. Cardioversion 02/05/19. Past Anesthesia/Blood Transfusion Reactions: No Reported Reaction Past Psychological History: No Psychological Hx Reported Smoking Status: Never smoker Past Alcohol Use History: None Reported Past Drug Use History: None Reported - Past Family History Father Family Medical History: Myocardial Infarction ([place]) Mother Family Medical History: Cancer Additional Family Medical History / Comment(s): in her sleep at 89. Medications and Allergies Home Medications Medication Instructions Recorded Confirmed Type Simvastatin [Zocor] 20 mg PO HS 09/29/16 06/21/19 History Carbidopa-Levodopa 25-100 mg 1 tab PO QID 01/05/19 06/21/19 History [Sinemet 25-100 mg] Apixaban [Eliquis] 5 mg PO BID #60 tab 01/09/19 06/21/19 Rx Aspirin 81 mg PO DAILY chew 01/09/19 06/21/19 Rx Amiodarone [Cordarone] 200 mg PO DAILY 05/18/19 06/21/19 History Metoprolol Tartrate [Lopressor] 25 mg PO BID 05/18/19 06/21/19 History glipiZIDE [Glucotrol] 5 mg PO AC-BRKFST 05/18/19 06/21/19 History Furosemide [Lasix] 40 mg PO DAILY tab 05/26/19 06/21/19 Rx Levothyroxine Sodium [Synthroid] 112 mcg PO DAILY@0630 #0 tab 05/26/19 06/21/19 Rx Gabapentin [Neurontin] 300 mg PO BID #60 cap 05/27/19 06/21/19 Rx Loperamide [Imodium] 2 mg PO QID PRN #30 capsule 05/27/19 06/21/19 Rx Potassium Chloride ER [K-Dur 20] 20 meq PO DAILY #30 tab 05/27/19 06/21/19 Rx metFORMIN HCL 1,000 mg PO BID 06/21/19 06/21/19 History Allergies Allergy/AdvReac Type Severity Reaction Status Date / Time No Known Allergies Allergy Verified 06/21/19 11:22 Physical Exam Vitals: Vital Signs Temp Pulse Resp BP Pulse Ox 06/21/19 16:30 69 19 105/43 92 L 06/21/19 15:34 76 18 117/59 93 L 06/21/19 15:03 57 L 19 109/46 91 L 06/21/19 13:19 73 06/21/19 13:05 70 06/21/19 10:57 98.1 F 71 18 126/65 95 Intake and Output 06/21/19 06/21/19 06/21/19 06:59 14:59 22:59 Other: Weight 98.43 kg - Constitutional General appearance: cooperative, mild distress (Respiratory distress.) - EENT Eyes: EOMI, PERRLA, normal appearance ENT: hearing grossly normal, NA/AT - Neck No jugular venous distention noted. Neck: no lymphadenopathy, normal ROM, no rigidity, no stridor, no thyromegaly - Respiratory Respiratory: bilateral: diminished, dullness, rales, negative: rhonchi, wheezing - Cardiovascular Rhythm: irregularly irregular Heart sounds: abnormal: S1 (Variable.), S2 (Variable.) - Gastrointestinal General gastrointestinal: no distended, normal bowel sounds, no rigid, soft, no tenderness - Integumentary Dry skin of the lower extremity bilaterally with 2+ pitting bilateral lower extremity edema, no signs of infection noted. - Neurologic Neurologic: CNII-XII intact - Psychiatric Psychiatric: A&O x's 3, appropriate affect Results CBC & Chem 7: 06/21/19 11:37 06/21/19 11:37 Labs: Abnormal Lab Results - Last 24 Hours (Table) 06/21/19 06/21/19 06/21/19 Range/Units 11:37 11:37 11:37 RBC 3.16 L (3.80-5.40) m/uL Hgb 10.2 L (11.4-16.0) gm/dL Hct 32.4 L (34.0-46.0) % MCV 102.4 H D (80.0-100.0) fL Lymphocytes # 0.9 L (1.0-4.8) k/uL VBG pCO2 (37-51) mmHg VBG HCO3 (24-28) mmol/L Potassium 6.7 H* (3.5-5.1) mmol/L Chloride 91 L (98-107) mmol/L Carbon Dioxide 36 H (22-30) mmol/L BUN 56 H (7-17) mg/dL Creatinine 2.12 H (0.52-1.04) mg/dL Glucose 217 H (74-99) mg/dL POC Glucose (mg/dL) (75-99) mg/dL Plasma Lactic Acid Wild 3.1 H* (0.7-2.0) mmol/L Urine Appearance (Clear) Urine Protein (Negative) Urine Blood (Negative) Ur Leukocyte Esterase (Negative) Urine RBC (0-5) /hpf Urine WBC (0-5) /hpf Ur Squamous Epith Cells (0-4) /hpf Amorphous Sediment (None) /hpf Urine Bacteria (None) /hpf Hyaline Casts (0-2) /lpf 06/21/19 06/21/19 06/21/19 Range/Units 11:37 14:36 15:37 RBC (3.80-5.40) m/uL Hgb (11.4-16.0) gm/dL Hct (34.0-46.0) % MCV (80.0-100.0) fL Lymphocytes # (1.0-4.8) k/uL VBG pCO2 70 H* (37-51) mmHg VBG HCO3 36 H (24-28) mmol/L Potassium (3.5-5.1) mmol/L Chloride (98-107) mmol/L Carbon Dioxide (22-30) mmol/L BUN (7-17) mg/dL Creatinine (0.52-1.04) mg/dL Glucose (74-99) mg/dL POC Glucose (mg/dL) 288 H (75-99) mg/dL Plasma Lactic Acid Wild 2.3 H* (0.7-2.0) mmol/L Urine Appearance (Clear) Urine Protein (Negative) Urine Blood (Negative) Ur Leukocyte Esterase (Negative) Urine RBC (0-5) /hpf Urine WBC (0-5) /hpf Ur Squamous Epith Cells (0-4) /hpf Amorphous Sediment (None) /hpf Urine Bacteria (None) /hpf Hyaline Casts (0-2) /lpf 06/21/19 06/21/19 Range/Units 17:15 18:11 RBC (3.80-5.40) m/uL Hgb (11.4-16.0) gm/dL Hct (34.0-46.0) % MCV (80.0-100.0) fL Lymphocytes # (1.0-4.8) k/uL VBG pCO2 (37-51) mmHg VBG HCO3 (24-28) mmol/L Potassium (3.5-5.1) mmol/L Chloride (98-107) mmol/L Carbon Dioxide (22-30) mmol/L BUN (7-17) mg/dL Creatinine (0.52-1.04) mg/dL Glucose (74-99) mg/dL POC Glucose (mg/dL) 179 H (75-99) mg/dL Plasma Lactic Acid Wild (0.7-2.0) mmol/L Urine Appearance Turbid H (Clear) Urine Protein 1+ H (Negative) Urine Blood Moderate H (Negative) Ur Leukocyte Esterase Large H (Negative) Urine RBC 11 H (0-5) /hpf Urine WBC 100 H (0-5) /hpf Ur Squamous Epith Cells 99 H (0-4) /hpf Amorphous Sediment Occasional H (None) /hpf Urine Bacteria Moderate H (None) /hpf Hyaline Casts 9 H (0-2) /lpf Thrombosis Risk Factor Assmnt - DVT/VTE Prophylaxis DVT/VTE Prophylaxis: Contraindicated - See note (Already on oral Eliquis for anticoagulation.) Assessment and Plan Plan: Assessment:- #1 hypoxic hypercarbic respiratory failure questionable combination of multiple factors. #2 hyperkalemia, most likely combination of worsening renal function and iatro genic. #3 acute on chronic diastolic heart failure with pulmonary hypertension #4 metabolic acidosislactic acidosis, multifactorial. #5 acute kidney injury on chronic kidney disease. #6 abnormal urine analysis, large number of epithelial cells most likely contaminated sample. #7 atrial fibrillation rate controlled on Eliquis. #8 coronary artery disease status post coronary artery bypass graft surgery per history. #9 diabetes mellitus type 2. #10 hypertension. #11 hyperlipidemia. #12 inflammatory bowel disease. #13 well with her heart disease/status post AVR. Plan:- Patient was admitted to [facility] with consultation of cardiology, pulmonary and nephrology. Patient home medication were reviewed and continued. Patient potassium will be rechecked this evening and if still high it will be again treated. Her potassium replacement were discontinued. Patient will be continued on diuresis to get rid of extra fluid. Her renal function will be monitored. Patient respiratory failure possibly could be secondary to hypoventilation and now she is getting into CO2 narcosis, which may get benefit from noninvasive positive pressure ventilation. This was communicated to patient's nurse in the emergency room as she is the still in the emergency room holding area and it was recommended to have pulmonary/critical care manager contact evaluated the patient. Patient blood sugar will be monitored and sliding scale was initiated to cover elevated levels. Cardiology input appreciated await 2-D echocardiogram. Basic panel will be checked in the morning. Overall patient condition is critical and prognosis is guarded but she requested to be fully resuscitated and full code and will appreciate and on her her wishes. Please see orders for further details. Time with Patient: Greater than 30
[2019-06-21] MEDS: SODIUM CHLORIDE 0.9% 1,000 ML IV SCH (19:35)
[2019-06-21] MEDS: CARBIDOPA-LEVODOPA 25-100 MG 1 EACH TAB PO SCH ×2 (19:56→21:25)
[2019-06-21] MEDS: METOPROLOL TARTRATE 25 MG TAB PO SCH (19:57)
[2019-06-21] MEDS: GABAPENTIN 300 MG CAP PO SCH (19:57)
[2019-06-21] MEDS: ATORVASTATIN 10 MG TAB PO SCH (19:57)
[2019-06-21] MEDS: FUROSEMIDE 10 MG/ML 4 ML VIAL IV SCH (19:57)
[2019-06-21] MEDS: APIXABAN 5 MG TAB PO SCH (19:57)
[2019-06-21 20:22] LABS: Calcium 9.2 mg/dL (8.4-10.2)
[2019-06-21 20:28] LABS: Potassium 6.1 mmol/L (3.5-5.1)
[2019-06-21 20:47] LABS: Glucose,Whole Blood 170 mg/dL (75-99)
[2019-06-21] MEDS ORDERED: DEXTROSE 10 % IN WATER 250 ML IV STA (21:29)
[2019-06-22 01:57] LABS: Glucose,Whole Blood 140 mg/dL (75-99)
[2019-06-22] MEDS ORDERED: INSULIN REGULAR 100 UNIT/ML VIAL IV ONE ×3 (03:18→17:10)
[2019-06-22] MEDS ORDERED: DEXTROSE 10 % IN WATER 250 ML IV STA ×3 (03:21→17:24)
[2019-06-22 03:37] LABS: ABG Base Excess 10.2 mmol/L; ABG HCO3 36 mmol/L (21-25); ABG Oxygen Saturation 87.6 % (94-97); ABG PCO2 70 mmHg (35-45); ABG PH 7.32 (7.35-7.45); ABG TCO2 38 mmol/L (19-24); Allen Test Performed? Yes
[2019-06-22 03:41] LABS: ABG PO2 56 mmHg (83-108)
[2019-06-22 06:28] LABS: Glucose,Whole Blood 173 mg/dL (75-99)
[2019-06-22] MEDS: glipiZIDE 5 MG TAB PO SCH (06:34)
[2019-06-22] MEDS: LEVOTHYROXINE 112 MCG TAB PO SCH (06:34)
[2019-06-22] MEDS: INSULIN ASPART (NovoLOG) 100 UNIT/ML VIAL SQ SCH ×4 (06:35→23:31)
[2019-06-22 06:52] LABS: Basophils # (A) 0.1 k/uL (0-0.2); Basophils % (A) 1 %; Eosinophils # (A) 0.1 k/uL (0-0.7); Eosinophils % (A) 1 %; HCT 27.5 % (34.0-46.0); Hypochromasia Moderate; Lymphocytes # (A) 1.1 k/uL (1.0-4.8); Lymphocytes % (A) 15 %; MCH 33.9 pg (25.0-35.0); MCHC 32.8 g/dL (31.0-37.0); MCV 103.6 fL (80.0-100.0); Macrocytosis Slight; Mean Platelet Volume 6.4; Monocytes # (A) 0.8 k/uL (0-1.0); Monocytes % (A) 11 %; Neutrophils % (A) 70 %; Platelet Count 193 k/uL (150-450); RBC 2.66 m/uL (3.80-5.40); RDW 13.5 % (11.5-15.5); WBC 7.1 k/uL (3.8-10.6)
[2019-06-22] MEDS ORDERED: SODIUM POLYSTYRENE SULFONATE 15 GM/60 ML BOTTLE PO STA (07:30)
[2019-06-22 07:53] LABS: Polychromasia Present
[2019-06-22] MEDS: METOPROLOL TARTRATE 25 MG TAB PO SCH ×2 (08:01→20:22)
[2019-06-22] MEDS: AMIODARONE 200 MG TAB PO SCH (08:01)
[2019-06-22] MEDS: ASPIRIN 81 MG PO SCH (08:01)
[2019-06-22] MEDS: APIXABAN 5 MG TAB PO SCH ×2 (08:01→20:22)
[2019-06-22] MEDS: FUROSEMIDE 10 MG/ML 4 ML VIAL IV SCH (08:01)
[2019-06-22] MEDS: GABAPENTIN 300 MG CAP PO SCH (08:01)
[2019-06-22] MEDS: CARBIDOPA-LEVODOPA 25-100 MG 1 EACH TAB PO SCH ×4 (08:01→20:23)
[2019-06-22 08:03] LABS: Calcium 9.1 mg/dL (8.4-10.2); Magnesium 2.3 mg/dL (1.6-2.3)
[2019-06-22 08:12] LABS: Potassium 6.2 mmol/L (3.5-5.1)
[2019-06-22] MEDS ORDERED: PANTOPRAZOLE 40 MG/10 ML VIAL IV SCH (09:00)
[2019-06-22 10:00] LABS: Appearance,Urine Clear (Clear); Bacteria,Urine Few /hpf; Bilirubin,Urine Negative (Negative); Blood,Urine Negative (Negative); Color,Urine Yellow; Glucose,Urine (UA) Negative (Negative); Hyaline Casts,Urine 57 /lpf (0-2); Ketones,Urine Trace (Negative); Leukocyte Esterase,Urine Negative (Negative); Mucus,Urine Rare /hpf; Nitrite,Urine Negative (Negative); Protein,Urine 1+ (Negative); RBC,Urine <1 /hpf (0-5); Specific Gravity,Urine 1.018 (1.001-1.035); Squamous Epithelial Cell,Urine 1 /hpf (0-4)
[2019-06-22 10:11] LABS: ABG Base Excess 11.3 mmol/L; ABG HCO3 38 mmol/L (21-25); ABG Oxygen Saturation 88.3 % (94-97); ABG PH 7.28 (7.35-7.45); ABG PO2 60 mmHg (83-108); ABG TCO2 41 mmol/L (19-24); Allen Test Performed? Yes
[2019-06-22 10:13] LABS: ABG PCO2 82 mmHg (35-45)
--- NOTE | 2019-06-22 10:57 | P.NPCON ---
History of Present Illness - Reason for Consult acute renal failure, hyperkalemia - History of Present Illness Reason for consultation: Acute kidney injury and hyperkalemia History of present illness: Patient is a 78-year-old female seen in renal consultation for acute kidney injury and hyperkalemia. Patient's creatinine was 2.12 on admission and is 2.51 today. Patient's creatinine has been as low as 1.01 as of 05/25/2019. Patient presented to the hospital with generalized weakness and shortness of breath. Family is present at bedside. They provide history. Patient's currently on BiPAP. According to the family patient was hypoxic at home with oxygen saturations in the 70s and 80s. No fever or chills. Patient's lower extremity edema has been worsening. Chest x-ray was suggestive of fluid overload. Patient does have history of diabetes mellitus. Denies family history of renal disease. Tatum catheter was placed this morning. 200 mL of urine was obtained. Denies regular use of nonsteroidals. Patient's potassium level was 6.7 on admission and has been medically treated multiple times. It was 6.2 this morning. I do note potassium supplementation and her home medications. No evidence of acidosis. Blood sugars are relatively controlled. Vital signs are stable. General: The patient appeared well nourished and normally developed. Currently on BiPAP. HEENT: Head exam is unremarkable. Neck is without jugular venous distension. LUNGS: Breath sounds decreased. HEART: Rate and Rhythm are regular. First and second heart sounds normal. No murmurs, rubs or gallops. ABDOMEN: Abdominal exam reveals normal bowel sounds. Non-tender and non- distended. No evidence of peritonitis. EXTREMITITES: 2+ edema. Past Medical History Past Medical History: Atrial Fibrillation, Coronary Artery Disease (CAD), Heart Failure, Diabetes Mellitus, Hyperlipidemia, Hypertension, Osteoarthritis (OA), Pneumonia, Thyroid Disorder Additional Past Medical History / Comment(s): Leaky valve, Parkinsons, neuropathy legs, Pneumonia 2 yrs ago. Constipation History of Any Multi-Drug Resistant Organisms: None Reported Past Surgical History: Cholecystectomy, Coronary Bypass/CABG, Heart Catheterization Additional Past Surgical History / Comment(s): Aortic valve replacement with double cardiac bypass surgery(2010), bilateral cataracts removed. Cardioversion 02/05/19. Past Anesthesia/Blood Transfusion Reactions: No Reported Reaction Past Psychological History: No Psychological Hx Reported Smoking Status: Never smoker Past Alcohol Use History: None Reported Past Drug Use History: None Reported - Past Family History Father Family Medical History: Myocardial Infarction ([place]) Mother Family Medical History: Cancer Additional Family Medical History / Comment(s): in her sleep at 89. Medications and Allergies Home Medications Medication Instructions Recorded Confirmed Type Simvastatin [Zocor] 20 mg PO HS 09/29/16 06/21/19 History Carbidopa-Levodopa 25-100 mg 1 tab PO QID 01/05/19 06/21/19 History [Sinemet 25-100 mg] Apixaban [Eliquis] 5 mg PO BID #60 tab 01/09/19 06/21/19 Rx Aspirin 81 mg PO DAILY chew 01/09/19 06/21/19 Rx Amiodarone [Cordarone] 200 mg PO DAILY 05/18/19 06/21/19 History Metoprolol Tartrate [Lopressor] 25 mg PO BID 05/18/19 06/21/19 History glipiZIDE [Glucotrol] 5 mg PO AC-BRKFST 05/18/19 06/21/19 History Furosemide [Lasix] 40 mg PO DAILY tab 05/26/19 06/21/19 Rx Levothyroxine Sodium [Synthroid] 112 mcg PO DAILY@0630 #0 tab 05/26/19 06/21/19 Rx Gabapentin [Neurontin] 300 mg PO BID #60 cap 05/27/19 06/21/19 Rx Loperamide [Imodium] 2 mg PO QID PRN #30 capsule 05/27/19 06/21/19 Rx Potassium Chloride ER [K-Dur 20] 20 meq PO DAILY #30 tab 05/27/19 06/21/19 Rx metFORMIN HCL 1,000 mg PO BID 06/21/19 06/21/19 History Allergies Allergy/AdvReac Type Severity Reaction Status Date / Time No Known Allergies Allergy Verified 06/21/19 11:22 Physical Exam Vitals: Vital Signs Temp Pulse Pulse Resp BP BP Pulse Ox 06/22/19 08:00 98.1 F 76 24 122/73 94 L 06/22/19 03:00 98 F 66 22 95/43 94 L 06/21/19 23:00 97.6 F 53 L 20 131/44 94 L 06/21/19 19:46 98.2 F 75 18 98/51 92 L 06/21/19 18:30 76 19 105/61 95 06/21/19 18:00 76 22 129/69 96 06/21/19 17:30 77 20 118/65 95 06/21/19 17:00 77 21 109/53 06/21/19 16:30 69 19 105/43 92 L 06/21/19 15:34 76 18 117/59 93 L 06/21/19 15:03 57 L 19 109/46 91 L 06/21/19 13:19 73 06/21/19 13:05 70 06/21/19 10:57 98.1 F 71 18 126/65 95 Intake and Output 06/21/19 06/22/19 06/22/19 22:59 06:59 14:59 Intake Total 250 Balance 250 Intake: Intake, IV Titration 250 Amount Dextrose 10 % in Water 250 250 ml @ 999 mls/hr IV ONCE STA Rx#:[id number] Other: Weight 103.5 kg Results - Lab Results Most recent lab results ABG pH 7.28 (7.35-7.45) L 06/22/19 09:58 ABG pCO2 82 mmHg (35-45) H* 06/22/19 09:58 ABG pO2 60 mmHg (83-108) L 06/22/19 09:58 ABG HCO3 38 mmol/L (21-25) H 06/22/19 09:58 ABG O2 Saturation 88.3 % (94-97) L 06/22/19 09:58 Calcium 9.1 mg/dL (8.4-10.2) 06/22/19 07:18 Magnesium 2.3 mg/dL (1.6-2.3) 06/22/19 07:18 06/22/19 05:50 06/22/19 07:18 Assessment and Plan Plan: Assessment: 1. Acute kidney injury secondary to ATN secondary to hypotension and cardiorenal syndrome. Creatinine 2.51 today. No evidence of urinary retention. 2. Hyperkalemia secondary to acute kidney injury and potassium supplementation. 3. Acute mixed hypercapnic and hypoxic respiratory failure. 4. Diabetes mellitus. 5. Volume overload. Plan: Start Lasix drip at 10 mL an hour. Add metolazone 5 mg once daily. 10 units of IV regular insulin with an amp of D50 now. 1 g of IV calcium gluconate now. Repeat potassium level this afternoon. Continue to monitor renal function and urine output. Check renal ultrasound. Follow-up echocardiogram. Thank you for the consultation. I'll continue to follow the patient with you during her hospital stay.
[2019-06-22] MEDS ORDERED: FUROSEMIDE 100 MG in SODIUM CHLORIDE 0.9% 90 ML IV SCH (11:00)
[2019-06-22] MEDS ORDERED: CALCIUM GLUCONATE 1 GM in SODIUM CHLORIDE 0.9% 100 ML IVPB ONE (11:00)
[2019-06-22 11:11] LABS: Glucose,Whole Blood 109 mg/dL (75-99)
--- NOTE | 2019-06-22 11:24 | P.PN ---
Subjective Progress Note Date: 06/22/19 Patient was noted to have declined since yesterday and now she is more confused and they're currently BiPAP mask was placed due to her hypercarbic hypoxic respiratory failure. It was noted that patient blood pressure is also declining and running low and day hyperkalemia has not improving despite of treatment with insulin and dextrose. Patient urinalysis was repeated ordered but it has not been done yet. It was also noted that patient oxygen saturations are low and day pCO2 is chronically elevated with some worsening noted. Patient has 2-D echocardiogram done 05/19/2019 which is reported as ejection fraction of 45-50%. Nurses reported that patient is often confused and having hallucinations. U nable to do ROS due to pt's condition. Objective - Vital Signs Vital signs: Vital Signs Temp 98.1 F 06/22/19 08:00 Pulse 76 06/22/19 08:00 Resp 24 06/22/19 08:00 BP 122/73 06/22/19 08:00 Pulse Ox 94 L 06/22/19 08:00 Intake & Output 06/21/19 06/22/19 06/22/19 18:59 06:59 18:59 Intake Total 250 Balance 250 Weight 98.43 kg 103.5 kg Intake: Intake, IV Titration 250 Amount Dextrose 10 % in Water 250 250 ml @ 999 mls/hr IV ONCE STA Rx#:[id number] - Constitutional Constitutional Comment(s): Drwosy and minimally responsiv to verbal stimuli, on BiPAP mask. General appearance: Present: obese - Neck Neck: Present: normal ROM. Absent: lymphadenopathy, rigidity, thyromegaly - Respiratory Respiratory: bilateral: CTA, diminished, negative: dullness, rales, rhonchi, wheezing - Cardiovascular Rhythm: irregularly irregular Heart sounds: abnormal: S1 (Variable ), S2 (Variable) Abnormal Heart Sounds: Absent: systolic murmur, diastolic murmur, S3 Gallop, S4 Gallop - Gastrointestinal General gastrointestinal: Present: normal bowel sounds, soft. Absent: distended, rigid, tenderness - Integumentary Integumentary: Present: decreased turgor - Allied health notes Allied health notes reviewed: nursing - Labs CBC & Chem 7: 06/22/19 05:50 06/22/19 07:18 Labs: Abnormal Lab Results - Last 24 Hours (Table) 06/21/19 06/21/19 06/21/19 Range/Units 11:37 11:37 11:37 RBC 3.16 L (3.80-5.40) m/uL Hgb 10.2 L (11.4-16.0) gm/dL Hct 32.4 L (34.0-46.0) % MCV 102.4 H D (80.0-100.0) fL Lymphocytes # 0.9 L (1.0-4.8) k/uL ABG pH (7.35-7.45) ABG pCO2 (35-45) mmHg ABG pO2 (83-108) mmHg ABG HCO3 (21-25) mmol/L ABG Total CO2 (19-24) mmol/L ABG O2 Saturation (94-97) % VBG pCO2 (37-51) mmHg VBG HCO3 (24-28) mmol/L Sodium (137-145) mmol/L Potassium 6.7 H* (3.5-5.1) mmol/L Chloride 91 L (98-107) mmol/L Carbon Dioxide 36 H (22-30) mmol/L BUN 56 H (7-17) mg/dL Creatinine 2.12 H (0.52-1.04) mg/dL Glucose 217 H (74-99) mg/dL POC Glucose (mg/dL) (75-99) mg/dL Plasma Lactic Acid Wild 3.1 H* (0.7-2.0) mmol/L Urine Appearance (Clear) Urine Protein (Negative) Urine Ketones (Negative) Urine Blood (Negative) Ur Leukocyte Esterase (Negative) Urine RBC (0-5) /hpf Urine WBC (0-5) /hpf Ur Squamous Epith Cells (0-4) /hpf Amorphous Sediment (None) /hpf Urine Bacteria (None) /hpf Hyaline Casts (0-2) /lpf Urine Mucus (None) /hpf 06/21/19 06/21/19 06/21/19 Range/Units 11:37 14:36 15:37 RBC (3.80-5.40) m/uL Hgb (11.4-16.0) gm/dL Hct (34.0-46.0) % MCV (80.0-100.0) fL Lymphocytes # (1.0-4.8) k/uL ABG pH (7.35-7.45) ABG pCO2 (35-45) mmHg ABG pO2 (83-108) mmHg ABG HCO3 (21-25) mmol/L ABG Total CO2 (19-24) mmol/L ABG O2 Saturation (94-97) % VBG pCO2 70 H* (37-51) mmHg VBG HCO3 36 H (24-28) mmol/L Sodium (137-145) mmol/L Potassium (3.5-5.1) mmol/L Chloride (98-107) mmol/L Carbon Dioxide (22-30) mmol/L BUN (7-17) mg/dL Creatinine (0.52-1.04) mg/dL Glucose (74-99) mg/dL POC Glucose (mg/dL) 288 H (75-99) mg/dL Plasma Lactic Acid Wild 2.3 H* (0.7-2.0) mmol/L Urine Appearance (Clear) Urine Protein (Negative) Urine Ketones (Negative) Urine Blood (Negative) Ur Leukocyte Esterase (Negative) Urine RBC (0-5) /hpf Urine WBC (0-5) /hpf Ur Squamous Epith Cells (0-4) /hpf Amorphous Sediment (None) /hpf Urine Bacteria (None) /hpf Hyaline Casts (0-2) /lpf Urine Mucus (None) /hpf 06/21/19 06/21/19 06/21/19 Range/Units 17:15 18:11 19:26 RBC (3.80-5.40) m/uL Hgb (11.4-16.0) gm/dL Hct (34.0-46.0) % MCV (80.0-100.0) fL Lymphocytes # (1.0-4.8) k/uL ABG pH (7.35-7.45) ABG pCO2 (35-45) mmHg ABG pO2 (83-108) mmHg ABG HCO3 (21-25) mmol/L ABG Total CO2 (19-24) mmol/L ABG O2 Saturation (94-97) % VBG pCO2 (37-51) mmHg VBG HCO3 (24-28) mmol/L Sodium 136 L (137-145) mmol/L Potassium 6.1 H* (3.5-5.1) mmol/L Chloride 91 L (98-107) mmol/L Carbon Dioxide 39 H (22-30) mmol/L BUN 57 H (7-17) mg/dL Creatinine 2.35 H (0.52-1.04) mg/dL Glucose 147 H (74-99) mg/dL POC Glucose (mg/dL) 179 H (75-99) mg/dL Plasma Lactic Acid Wild (0.7-2.0) mmol/L Urine Appearance Turbid H (Clear) Urine Protein 1+ H (Negative) Urine Ketones (Negative) Urine Blood Moderate H (Negative) Ur Leukocyte Esterase Large H (Negative) Urine RBC 11 H (0-5) /hpf Urine WBC 100 H (0-5) /hpf Ur Squamous Epith Cells 99 H (0-4) /hpf Amorphous Sediment Occasional H (None) /hpf Urine Bacteria Moderate H (None) /hpf Hyaline Casts 9 H (0-2) /lpf Urine Mucus (None) /hpf 06/21/19 06/22/19 06/22/19 Range/Units 20:46 01:56 02:30 RBC (3.80-5.40) m/uL Hgb (11.4-16.0) gm/dL Hct (34.0-46.0) % MCV (80.0-100.0) fL Lymphocytes # (1.0-4.8) k/uL ABG pH (7.35-7.45) ABG pCO2 (35-45) mmHg ABG pO2 (83-108) mmHg ABG HCO3 (21-25) mmol/L ABG Total CO2 (19-24) mmol/L ABG O2 Saturation (94-97) % VBG pCO2 (37-51) mmHg VBG HCO3 (24-28) mmol/L Sodium (137-145) mmol/L Potassium 6.2 H* (3.5-5.1) mmol/L Chloride (98-107) mmol/L Carbon Dioxide (22-30) mmol/L BUN (7-17) mg/dL Creatinine (0.52-1.04) mg/dL Glucose (74-99) mg/dL POC Glucose (mg/dL) 170 H 140 H (75-99) mg/dL Plasma Lactic Acid Wild (0.7-2.0) mmol/L Urine Appearance (Clear) Urine Protein (Negative) Urine Ketones (Negative) Urine Blood (Negative) Ur Leukocyte Esterase (Negative) Urine RBC (0-5) /hpf Urine WBC (0-5) /hpf Ur Squamous Epith Cells (0-4) /hpf Amorphous Sediment (None) /hpf Urine Bacteria (None) /hpf Hyaline Casts (0-2) /lpf Urine Mucus (None) /hpf 06/22/19 06/22/19 06/22/19 Range/Units 03:30 05:50 06:27 RBC 2.66 L (3.80-5.40) m/uL Hgb 9.0 L (11.4-16.0) gm/dL Hct 27.5 L (34.0-46.0) % MCV 103.6 H (80.0-100.0) fL Lymphocytes # (1.0-4.8) k/uL ABG pH 7.32 L (7.35-7.45) ABG pCO2 70 H (35-45) mmHg ABG pO2 56 L* (83-108) mmHg ABG HCO3 36 H (21-25) mmol/L ABG Total CO2 38 H (19-24) mmol/L ABG O2 Saturation 87.6 L (94-97) % VBG pCO2 (37-51) mmHg VBG HCO3 (24-28) mmol/L Sodium (137-145) mmol/L Potassium (3.5-5.1) mmol/L Chloride (98-107) mmol/L Carbon Dioxide (22-30) mmol/L BUN (7-17) mg/dL Creatinine (0.52-1.04) mg/dL Glucose (74-99) mg/dL POC Glucose (mg/dL) 173 H (75-99) mg/dL Plasma Lactic Acid Wild (0.7-2.0) mmol/L Urine Appearance (Clear) Urine Protein (Negative) Urine Ketones (Negative) Urine Blood (Negative) Ur Leukocyte Esterase (Negative) Urine RBC (0-5) /hpf Urine WBC (0-5) /hpf Ur Squamous Epith Cells (0-4) /hpf Amorphous Sediment (None) /hpf Urine Bacteria (None) /hpf Hyaline Casts (0-2) /lpf Urine Mucus (None) /hpf 06/22/19 06/22/19 06/22/19 Range/Units 07:18 09:30 09:58 RBC (3.80-5.40) m/uL Hgb (11.4-16.0) gm/dL Hct (34.0-46.0) % MCV (80.0-100.0) fL Lymphocytes # (1.0-4.8) k/uL ABG pH 7.28 L (7.35-7.45) ABG pCO2 82 H* (35-45) mmHg ABG pO2 60 L (83-108) mmHg ABG HCO3 38 H (21-25) mmol/L ABG Total CO2 41 H (19-24) mmol/L ABG O2 Saturation 88.3 L (94-97) % VBG pCO2 (37-51) mmHg VBG HCO3 (24-28) mmol/L Sodium 136 L (137-145) mmol/L Potassium 6.2 H* (3.5-5.1) mmol/L Chloride 91 L (98-107) mmol/L Carbon Dioxide 37 H (22-30) mmol/L BUN 63 H (7-17) mg/dL Creatinine 2.51 H (0.52-1.04) mg/dL Glucose 123 H (74-99) mg/dL POC Glucose (mg/dL) (75-99) mg/dL Plasma Lactic Acid Wild (0.7-2.0) mmol/L Urine Appearance (Clear) Urine Protein 1+ H (Negative) Urine Ketones Trace H (Negative) Urine Blood (Negative) Ur Leukocyte Esterase (Negative) Urine RBC (0-5) /hpf Urine WBC (0-5) /hpf Ur Squamous Epith Cells (0-4) /hpf Amorphous Sediment (None) /hpf Urine Bacteria Few H (None) /hpf Hyaline Casts 57 H (0-2) /lpf Urine Mucus Rare H (None) /hpf Microbiology - Last 24 Hours (Table) 06/21/19 17:15 Urine Culture - Preliminary Urine,Voided Assessment and Plan Plan: Assessment:- #1 hypoxic hypercarbic respiratory failure questionable combination of multiple factors. #2 hyperkalemia, most likely combination of worsening renal function and iatrogenic. #3 acute on chronic diastolic heart failure with pulmonary hypertension #4 metabolic acidosislactic acidosis, multifactorial. #5 acute kidney injury on chronic kidney disease. #6 abnormal urine analysis, large number of epithelial cells most likely contaminated sample. #7 atrial fibrillation rate controlled on Eliquis. #8 coronary artery disease status post coronary artery bypass graft surgery per history. #9 diabetes mellitus type 2. #10 hypertension. #11 hyperlipidemia. #12 inflammatory bowel disease. #13 well with her heart disease/status post AVR. Plan:- Continue BiPAP for now, it was advised to the nurse Pt's nurse Charisma, that to notify critical care Dr. Christianson. Pt. may need ICU placement due to her critical c ondition. Patient potassium was treated earlier today, will give oral Kayexalate and will repeat EKG and if still changes of high potassium then will treat with Calcium and I/V Insulin+Dextrose 50%. Patient will be continued on diuresis to get rid of extra fluid. Her renal function slowly worening. NICA on CKD, Nephrology on case, await their recs. Patient respiratory failure possibly could be secondary to hypoventilation and now she is getting into CO2 narcosis, which didn't got benefit from noninvasive positive pressure ventilation, pt. may benefit from ICU placement. Patient blood sugar will be monitored and sliding scale was initiated to cover elevated levels. Still await 2-D echocardiogram. Basic panel will be checked in the morning. Overall patient condition is critical and prognosis is guarded. I had as long meeting with patient's daughter Enma Salgado, who also states that she is DURABLE POWER OF [employer] WORKER for medical care for the patient. She was updated about patient's critical condition and all questions were answered. She stated that patient has advanced directives done earlier today. His hospitalization and patient want DO NOT RESUSCITATE order. But none of those documents for is available in the hospital data system. Patient daughter stated that she is going to bring those papers. During my conversation with the patient yesterday at the time of admission patient stated that she wants to be fully resuscitated and same thing she might have communicated to the emergency room physician who placed a full code order for the patient. Patient daughter also stated that she would also like her to be continued as full code and received full treatment while at the hospital. She stated that once patient is more stable and ready for discharge she would like to take her home with home care and she does not want her mother to go to subacute rehab facility. At the end of the meeting patient daughter was comfortable with the current management and care given at this hospital. Later on this keno writer received call from the nurse that Dr. Christianson requested patient to be transferred to ICU. Again overall pt's condition is critical and prognosis is guarded/poor and pt's daughter is aware of it. Time with Patient: Greater than 30 (More than 50% time spent for family meeting with pt's daughter and counseling)
[2019-06-22] MEDS: METOLAZONE 5 MG TAB PO SCH (11:33)
--- NOTE | 2019-06-22 11:43 | ECHOF ---
Referral Reason:chf MEASUREMENTS -------- HEIGHT: 165.1 cm WEIGHT: 103.4 kg BP: 95/42 RVIDd: 5.2 cm (< 3.3) AV maxP.02 mmHg AV meanP.66 mmHg RAP: 5.00 mmHg RVSP: 57.44 mmHg FINDINGS -------- Sinus rhythm. Echo Done 05/13: Limited study CHF. Overall left ventricular systolic function is mild-moderately impaired with, an EF between 40 - 45 %. The right ventricle is severely enlarged. The right ventricular septal wall is flattened in diastol e and systole which is consistent with right ventricular volume and pressure overload. Peak/mean gradient across the Aortic Valve is 38.02mmHg / 22.66mmHg. There is mild ebony-prosthetic regurgitation of the bioprosthetic aortic valve. There is mild stenosis of the bioprosthetic aortic valve. Nzhy-mo-dawgwmog mitral regurgitation is present. Mild tricuspid regurgitation present. There is moderate pulmonary hypertension. The right ventric ular systolic pressure, as measured by Doppler, is 57.44mmHg. There is no pulmonic regurgitation present. There is no pericardial effusion. CONCLUSIONS -------- 1. Sinus rhythm. 2. Echo Done 05/13: Limited study CHF. 3. The right ventricle is severely enlarged. 4. The right ventricular septal wall is flattened in diastole and systole which is consistent with r ight ventricular volume and pressure overload. 5. Peak/mean gradient across the Aortic Valve is 38.02mmHg / 22.66mmHg. 6. There is mild ebony-prosthetic regurgitation of the bioprosthetic aortic valve. 7. There is mild stenosis of the bioprosthetic aortic valve. 8. Ezdt-kk-fjrkofoj mitral regurgitation is present. 9. Mild tricuspid regurgitation present. 10. There is moderate pulmonary hypertension. 11. The right ventricular systolic pressure, as measured by Doppler, is 57.44mmHg. 12. There is no pulmonic regurgitation present. 13. There is no pericardial effusion. FINISH MILL OPERATOR: Jodi Palencia RDCS
--- NOTE | 2019-06-22 12:07 | US ---
EXAMINATION TYPE: US kidneys/renal and bladder DATE OF EXAM: 06/22/2019 COMPARISON: None CLINICAL HISTORY: [email or web address]. Poor historian. Bladder cath. *Performed portable in ICU EXAM MEASUREMENTS: Right Kidney: 10.7 x 5.1 x 4.8 cm Left Kidney: 9.8 x 4.4 x 5.0 cm Limited exam due to patient position Right Kidney: Possible fluid seen anterior to lower pole Left Kidney: Limited visualization due to overlying bowel gas Bladder: Not visualized Bilateral Jets not seen due to catheter There is no evidence for hydronephrosis at this point in time. No nephrolithiasis is seen. Urinary b ladder is nonvisualized. IMPRESSION: Possible trace amount of right perinephric fluid. In the setting of trauma subcapsular he matoma would be considered however without trauma this can be seen in acute renal failure. No hydrone phrosis of either kidney. Limited visualization of the left kidney secondary to overlying bowel. Urin damien bladder is nonvisualized as there is a Tatum catheter placed.
--- NOTE | 2019-06-22 12:37 | P.PN ---
Subjective Progress Note Date: 06/22/19 This is a 78-year-old female with history of coronary artery disease and prior bypass surgery as well as aortic valve replacement, chronic persistent atrial fibrillation, her condition, diabetes, hypertension, hyperlipidemia, hypothyroidism, she follows regularly with Dr. Berry in the office. Patient underwent a DON in December 2018, she was found to have a properly functioning prosthetic valve, she also underwent a cardioversion for atrial fibrillation. Most recent cardiac catheterization was performed in February of this year, patent vein graft to the RCA and LAD. She is admitted to the hospital on this occasion with symptoms of fairly sudden onset of shortness of breath and peripheral lizbet a. According to the patient, it started only a day and a half ago. Prior to that she states that she was feeling fine. On further questioning, patient does state that she's noticed edema longer than that. As x-ray on admission showed congestive heart failure and small effusion. EKG shows atrial fibrillation with a slow ventricular response. I pressure 118/60 with a heart rate in the 70s, 93% on 3 L of oxygen. White blood cell count 7.0, hemoglobin 10.2, platelet count 192. PH 7.3, pCO2 70, HCO3 36. Sodium 137, potassium 6.7, BUN 56, creatinine 2.1. Plasma lactic acid 3.1 on admission. Magnesium 2.1. Troponin 0.023. BNP level 21,200. The time of my examination, patient appears quite short of breath. We will initiate some IV Lasix. 06/22/2019 Patient was seen and examined this morning on the cardiac unit, much more short of breath than yesterday, on a nonrebreather, somewhat unresponsive. Blood pressure 100/40 with a heart rate in the 50s, 90% on BiPAP at 30%. Blood gases were drawn, pH 7.28, pCO2 82, pO2 60, HCO3 38, total CO2 41, oxygen saturation 88%. Sodium 136, potassium 6.2, chloride 91, CO2 37, BUN 63, creatinine 2.5. Mag 2.3. Minimal urine output since yesterday, in spite of being on Lasix 40 mg IV twice a day. Echocardiogram with Doppler study was performed which revealed an ejection fraction of 40-45%, right ventricle severely enlarged, right vent ricular septal wall is flattened in diastole and systole which is consistent with right ventricular volume overload. There is mild periprosthetic regurgitation of the bioprosthetic aortic valve, moderate mitral regurgitation. No pericardial effusion. Objective - Vital Signs Vital signs: Vital Signs Temp 97.5 F L 06/22/19 12:00 Pulse 55 L 06/22/19 12:00 Resp 24 06/22/19 12:00 BP 83/42 06/22/19 12:00 Pulse Ox 90 L 06/22/19 12:00 Intake & Output 06/21/19 06/22/19 06/22/19 18:59 06:59 18:59 Intake Total 250 360 Output Total 200 Balance 250 160 Weight 98.43 kg 103.5 kg Intake: Intake, IV Titration 250 360 Amount Calcium Gluconate 1 gm In 100 Sodium Chloride 0.9% 100 ml @ 100 mls/hr IVPB ONCE ONE Rx#:[id number] Dextrose 10 % in Water 250 250 ml @ 999 mls/hr IV ONCE STA Rx#:[id number] Dextrose 10 % in Water 250 250 ml @ 999 mls/hr IV ONCE STA Rx#:[id number] Sodium Chloride 0.9% 1, 10 000 ml @ 20 mls/hr IV . Q24H AMEYA Rx#:[id number] Output: Urine 200 Other: # Voids 1 - Exam GENERAL: 78-year-old female in no acute distress at the time of my examination HEENT: Head is atraumatic, normocephalic. Pupils equal, round. Sclera anicteric. Conjunctiva are clear. Mucous membranes of the mouth are moist. Neck is supple. There is elevated jugular venous pressure.No carotid bruit is heard. HEART EXAMNATION: heart S1-S2 irreg irreg a systolic murmur is heard. CHEST EXAMINATION: lungs reveal diminished air entry bilaterally ABDOMEN Soft, obese, notender. Bowel sounds are heard. No organomegaly noted. EXTREITIES: 2+ periperal pulses with 2+ -3+ evidence of peripheral edema and no calf tenderness noted]. NEUROLGIC sleepy, fairly unresponsive today - Labs CBC & Chem 7: 06/22/19 05:50 06/22/19 07:18 Labs: Abnormal Lab Results - Last 24 Hours (Table) 06/21/19 06/21/19 06/21/19 Range/Units 14:36 15:37 17:15 RBC (3.80-5.40) m/uL Hgb (11.4-16.0) gm/dL Hct (34.0-46.0) % MCV (80.0-100.0) fL ABG pH (7.35-7.45) ABG pCO2 (35-45) mmHg ABG pO2 (83-108) mmHg ABG HCO3 (21-25) mmol/L ABG Total CO2 (19-24) mmol/L ABG O2 Saturation (94-97) % Sodium (137-145) mmol/L Potassium (3.5-5.1) mmol/L Chloride (98-107) mmol/L Carbon Dioxide (22-30) mmol/L BUN (7-17) mg/dL Creatinine (0.52-1.04) mg/dL Glucose (74-99) mg/dL POC Glucose (mg/dL) 288 H (75-99) mg/dL Plasma Lactic Acid Wild 2.3 H* (0.7-2.0) mmol/L Urine Appearance Turbid H (Clear) Urine Protein 1+ H (Negative) Urine Ketones (Negative) Urine Blood Moderate H (Negative) Ur Leukocyte Esterase Large H (Negative) Urine RBC 11 H (0-5) /hpf Urine WBC 100 H (0-5) /hpf Ur Squamous Epith Cells 99 H (0-4) /hpf Amorphous Sediment Occasional H (None) /hpf Urine Bacteria Moderate H (None) /hpf Hyaline Casts 9 H (0-2) /lpf Urine Mucus (None) /hpf 06/21/19 06/21/19 06/21/19 Range/Units 18:11 19:26 20:46 RBC (3.80-5.40) m/uL Hgb (11.4-16.0) gm/dL Hct (34.0-46.0) % MCV (80.0-100.0) fL ABG pH (7.35-7.45) ABG pCO2 (35-45) mmHg ABG pO2 (83-108) mmHg ABG HCO3 (21-25) mmol/L ABG Total CO2 (19-24) mmol/L ABG O2 Saturation (94-97) % Sodium 136 L (137-145) mmol/L Potassium 6.1 H* (3.5-5.1) mmol/L Chloride 91 L (98-107) mmol/L Carbon Dioxide 39 H (22-30) mmol/L BUN 57 H (7-17) mg/dL Creatinine 2.35 H (0.52-1.04) mg/dL Glucose 147 H (74-99) mg/dL POC Glucose (mg/dL) 179 H 170 H (75-99) mg/dL Plasma Lactic Acid Widl (0.7-2.0) mmol/L Urine Appearance (Clear) Urine Protein (Negative) Urine Ketones (Negative) Urine Blood (Negative) Ur Leukocyte Esterase (Negative) Urine RBC (0-5) /hpf Urine WBC (0-5) /hpf Ur Squamous Epith Cells (0-4) /hpf Amorphous Sediment (None) /hpf Urine Bacteria (None) /hpf Hyaline Casts (0-2) /lpf Urine Mucus (None) /hpf 06/22/19 06/22/19 06/22/19 Range/Units 01:56 02:30 03:30 RBC (3.80-5.40) m/uL Hgb (11.4-16.0) gm/dL Hct (34.0-46.0) % MCV (80.0-100.0) fL ABG pH 7.32 L (7.35-7.45) ABG pCO2 70 H (35-45) mmHg ABG pO2 56 L* (83-108) mmHg ABG HCO3 36 H (21-25) mmol/L ABG Total CO2 38 H (19-24) mmol/L ABG O2 Saturation 87.6 L (94-97) % Sodium (137-145) mmol/L Potassium 6.2 H* (3.5-5.1) mmol/L Chloride (98-107) mmol/L Carbon Dioxide (22-30) mmol/L BUN (7-17) mg/dL Creatinine (0.52-1.04) mg/dL Glucose (74-99) mg/dL POC Glucose (mg/dL) 140 H (75-99) mg/dL Plasma Lactic Acid Wild (0.7-2.0) mmol/L Urine Appearance (Clear) Urine Protein (Negative) Urine Ketones (Negative) Urine Blood (Negative) Ur Leukocyte Esterase (Negative) Urine RBC (0-5) /hpf Urine WBC (0-5) /hpf Ur Squamous Epith Cells (0-4) /hpf Amorphous Sediment (None) /hpf Urine Bacteria (None) /hpf Hyaline Casts (0-2) /lpf Urine Mucus (None) /hpf 06/22/19 06/22/19 06/22/19 Range/Units 05:50 06:27 07:18 RBC 2.66 L (3.80-5.40) m/uL Hgb 9.0 L (11.4-16.0) gm/dL Hct 27.5 L (34.0-46.0) % MCV 103.6 H (80.0-100.0) fL ABG pH (7.35-7.45) ABG pCO2 (35-45) mmHg ABG pO2 (83-108) mmHg ABG HCO3 (21-25) mmol/L ABG Total CO2 (19-24) mmol/L ABG O2 Saturation (94-97) % Sodium 136 L (137-145) mmol/L Potassium 6.2 H* (3.5-5.1) mmol/L Chloride 91 L (98-107) mmol/L Carbon Dioxide 37 H (22-30) mmol/L BUN 63 H (7-17) mg/dL Creatinine 2.51 H (0.52-1.04) mg/dL Glucose 123 H (74-99) mg/dL POC Glucose (mg/dL) 173 H (75-99) mg/dL Plasma Lactic Acid Wild (0.7-2.0) mmol/L Urine Appearance (Clear) Urine Protein (Negative) Urine Ketones (Negative) Urine Blood (Negative) Ur Leukocyte Esterase (Negative) Urine RBC (0-5) /hpf Urine WBC (0-5) /hpf Ur Squamous Epith Cells (0-4) /hpf Amorphous Sediment (None) /hpf Urine Bacteria (None) /hpf Hyaline Casts (0-2) /lpf Urine Mucus (None) /hpf 06/22/19 06/22/19 06/22/19 Range/Units 09:30 09:58 11:00 RBC (3.80-5.40) m/uL Hgb (11.4-16.0) gm/dL Hct (34.0-46.0) % MCV (80.0-100.0) fL ABG pH 7.28 L (7.35-7.45) ABG pCO2 82 H* (35-45) mmHg ABG pO2 60 L (83-108) mmHg ABG HCO3 38 H (21-25) mmol/L ABG Total CO2 41 H (19-24) mmol/L ABG O2 Saturation 88.3 L (94-97) % Sodium (137-145) mmol/L Potassium (3.5-5.1) mmol/L Chloride (98-107) mmol/L Carbon Dioxide (22-30) mmol/L BUN (7-17) mg/dL Creatinine (0.52-1.04) mg/dL Glucose (74-99) mg/dL POC Glucose (mg/dL) 109 H (75-99) mg/dL Plasma Lactic Acid Wild (0.7-2.0) mmol/L Urine Appearance (Clear) Urine Protein 1+ H (Negative) Urine Ketones Trace H (Negative) Urine Blood (Negative) Ur Leukocyte Esterase (Negative) Urine RBC (0-5) /hpf Urine WBC (0-5) /hpf Ur Squamous Epith Cells (0-4) /hpf Amorphous Sediment (None) /hpf Urine Bacteria Few H (None) /hpf Hyaline Casts 57 H (0-2) /lpf Urine Mucus Rare H (None) /hpf Microbiology - Last 24 Hours (Table) 06/21/19 17:15 Urine Culture - Preliminary Urine,Voided Assessment and Plan Plan: Assessment and plan #1 diastolic congestive heart failure acute on chronic #2 acute on chronic kidney failure #3 history of aortic valve replacement and coronary artery bypass grafting surgery #4 chronic persistent atrial fibrillation #5 Parkinson's #6 hypothyroidism #7 hyperlipidemia #8 diabetes #9 chronic anemia #10 hyperkalemia Plan We'll repeat an echocardiogram with Doppler study. We will also start the patient on IV Lasix monitoring intake and output along with daily weights and daily lytes BUN and creatinine. Further recommendations to follow. DNP note has been reviewed, I agree with a documented findings and plan of care. Patient was seen and examined.
[2019-06-22] MEDS: NOREPINEPHRINE 4 MG in SODIUM CHLORIDE 0.9% 250 ML IV SCH ×2 (12:53→21:24)
--- NOTE | 2019-06-22 14:50 | P.CNPUL ---
History of Present Illness Consult date: 06/22/19 Requesting physician: Matteo Aponte Reason for consult: dyspnea, other Chief complaint: Shortness of breath, weakness History of present illness: Assessment 78-year-old white female patient of Dr. Bartholomew, with past medical history of chronic atrial fibrillation on anticoagulation, diabetes mellitus, dyslipidemia, hypertension, Parkinson's disease, hypothyroidism, chronic congestive heart failure, coronary artery disease with bypass grafting, previous surgery for aortic valve replacement. Patient presented to the emergency department on 06/21/2019 with complaints of worsening dyspnea and weakness. Patient apparently has a home pulse ox monitor and her pulse ox was in the 70s and 80s. Patient was recently hospitalized in April of this year with acute gastroenteritis of unknown etiology, and patient was critically ill during that admission with evidence of acute lactic acidosis, acute kidney injury, hypotension and hypovolemic shock, and patient required intensive care admi ssion and monitoring. Patient also developed metabolic encephalopathy, and neurological workup was negative. Patient did develop worsening ascending weakness, and there was concern for possibility of Guillain-Westview syndrome, but neurology felt it was unlikely. Patient's diarrhea gradually improved, she was opposed to have colonoscopy in the outpatient setting. Patient clinically improved and was eventually discharged to the [facility] for rehab therapy on 05/27/2019. Completed a course of Zosyn and Flagyl, C. diff screen was negative. During that admission patient did develop acute hypercapnic respiratory failure and generalized weakness of unknown etiology, and required BiPAP support. On 06/21/2019 patient was brought into the emergency department for evaluation of a dyspnea, and worsening weakness. Patient was recently discharged from the subacute rehab facility and was at home. Apparently she tried standing up earlier today and fell sideways, and patient apparently denied hitting injuries to her head. Denied any fever, or chills, denied any night sweats, denied chest pain. Most of the history was obtained from the chart, patient at the time of our evaluation is very difficult to arouse, there is a family member at the bedside who did provide some limited information in terms of her CODE STATUS. On 06/22/2019 we were called by the stepdown nurse taking care of the patient with concern of abnormal blood gases, that showed pO2 of 56, pCO2 of 70, and pH of 7.32. Admission blood work was negative for any evidence of leukocytosis, white blood cell count was 7.0, hemoglobin was 10.2 coagulation profile was within normal limits. Patient had evidence of acute kidney injury with a BUN of 657 and creatinine of 2.35, potassium of 6.1, and sodium of 136, BNP was 21,200, and troponin was negative 1. Patient had been oliguric, and urinalysis positive for signs of UTI. Patient was also hypotensive, was given a fluid bolus, and her potassium was treated with the 50% dextrose and insulin, however on this morning's labs potassium is persistently 6.2, nephrology has been consulted, Kayexalate has been given, chest x-ray shows increased density at the lung bases, blunting the costophrenic angles, central vascularity and interstitial or increased changes consistent with congestive heart failure and small pleural effusions. SHe received a dose of IV Lasix, she started making small amounts of urine, however neurologically she is increasingly more unr esponsive, and subsequent blood gases showed worsening hypercapnic respiratory failure, with pH of 7.28, and pCO2 of 82, and this was done on BiPAP support with pressures of 12 and 6 and FiO2 of 30%. BiPAP settings were then changed to 16/6 and FiO2 of 30% and patient was transferred to the intensive care unit. Tatum catheter has been placed, patient being initiated on Lasix drip per nephrology. Repeat urinalysis did not show evidence of infection. Patient has been afebrile. Patient's family member states patient is a DO NOT RESUSCITATE CODE STATUS and she is able to provide proof she has a necessary paperwork at home. For now we will continue supportive treatment, and patient will be monitored closely in the intensive care unit. Review of Systems All systems: negative Constitutional: Denies chills, Denies fever Eyes: denies blurred vision, denies pain Ears, nose, mouth and throat: Denies headache, Denies sore throat Cardiovascular: Denies chest pain, Denies shortness of breath Respiratory: Reports dyspnea, Denies cough Gastrointestinal: Denies abdominal pain, Denies diarrhea, Denies nausea, Denies vomiting Genitourinary: Denies dysuria, Denies hematuria Musculoskeletal: Denies myalgias Integumentary: Denies pruritus, Denies rash Neurological: Reports change in mentation, Denies numbness, Denies weakness Psychiatric: Denies anxiety, Denies depression Endocrine: Denies fatigue, Denies weight change Past Medical History Past Medical History: Atrial Fibrillation, Coronary Artery Disease (CAD), Heart Failure, Diabetes Mellitus, Hyperlipidemia, Hypertension, Osteoarthritis (OA), Pneumonia, Thyroid Disorder Additional Past Medical History / Comment(s): Leaky valve, Parkinsons, neuropathy legs, Pneumonia 2 yrs ago. Constipation History of Any Multi-Drug Resistant Organisms: None Reported Past Surgical History: Cholecystectomy, Coronary Bypass/CABG, Heart Catheterization Additional Past Surgical History / Comment(s): Aortic valve replacement with double cardiac bypass surgery(2010), bilateral cataracts removed. Cardioversion 02/05/19. Past Anesthesia/Blood Transfusion Reactions: No Reported Reaction Past Psychological History: No Psychological Hx Reported Smoking Status: Never smoker Past Alcohol Use History: None Reported Past Drug Use History: None Reported - Past Family History Father Family Medical History: Myocardial Infarction ([place]) Mother Family Medical History: Cancer Additional Family Medical History / Comment(s): in her sleep at 89. Medications and Allergies Home Medications Medication Instructions Recorded Confirmed Type Simvastatin [Zocor] 20 mg PO HS 09/29/16 06/21/19 History Carbidopa-Levodopa 25-100 mg 1 tab PO QID 01/05/19 06/21/19 History [Sinemet 25-100 mg] Apixaban [Eliquis] 5 mg PO BID #60 tab 01/09/19 06/21/19 Rx Aspirin 81 mg PO DAILY chew 01/09/19 06/21/19 Rx Amiodarone [Cordarone] 200 mg PO DAILY 05/18/19 06/21/19 History Metoprolol Tartrate [Lopressor] 25 mg PO BID 05/18/19 06/21/19 History glipiZIDE [Glucotrol] 5 mg PO AC-BRKFST 05/18/19 06/21/19 History Furosemide [Lasix] 40 mg PO DAILY tab 05/26/19 06/21/19 Rx Levothyroxine Sodium [Synthroid] 112 mcg PO DAILY@0630 #0 tab 05/26/19 06/21/19 Rx Gabapentin [Neurontin] 300 mg PO BID #60 cap 05/27/19 06/21/19 Rx Loperamide [Imodium] 2 mg PO QID PRN #30 capsule 05/27/19 06/21/19 Rx Potassium Chloride ER [K-Dur 20] 20 meq PO DAILY #30 tab 05/27/19 06/21/19 Rx metFORMIN HCL 1,000 mg PO BID 06/21/19 06/21/19 History Allergies Allergy/AdvReac Type Severity Reaction Status Date / Time No Known Allergies Allergy Verified 06/21/19 11:22 Physical Exam Vitals: Vital Signs Temp Pulse Pulse Resp BP BP Pulse Ox 06/22/19 14:00 46 L 17 94/50 91 L 06/22/19 13:30 40 L 20 98/49 94 L 06/22/19 13:00 54 L 13 74/41 94 L 06/22/19 12:30 49 L 23 72/51 94 L 06/22/19 12:00 97.5 F L 55 L 24 83/42 90 L 06/22/19 11:30 57 L 27 H 100/47 06/22/19 11:00 64 14 06/22/19 10:59 71 16 06/22/19 08:00 98.1 F 76 24 122/73 94 L 06/22/19 03:00 98 F 66 22 95/43 94 L 06/21/19 23:00 97.6 F 53 L 20 131/44 94 L 06/21/19 19:46 98.2 F 75 18 98/51 92 L 06/21/19 19:00 77 17 125/67 06/21/19 18:51 75 45 H 125/67 06/21/19 18:30 76 19 105/61 95 06/21/19 18:00 76 22 129/69 96 06/21/19 17:30 77 20 118/65 95 06/21/19 17:00 77 21 109/53 06/21/19 16:30 69 19 105/43 92 L 06/21/19 15:34 76 18 117/59 93 L 06/21/19 15:03 57 L 19 109/46 91 L Intake and Output 06/21/19 06/22/19 06/22/19 22:59 06:59 14:59 Intake Total 250 406.774 Output Total 202 Balance 250 204.774 Intake: Intake, IV Titration 250 406.774 Amount Calcium Gluconate 1 gm In 100 Sodium Chloride 0.9% 100 ml @ 100 mls/hr IVPB ONCE ONE Rx#:[id number] Dextrose 10 % in Water 250 250 ml @ 999 mls/hr IV ONCE STA Rx#:[id number] Dextrose 10 % in Water 250 250 ml @ 999 mls/hr IV ONCE STA Rx#:[id number] Furosemide 100 mg In 11 Sodium Chloride 0.9% 90 ml @ 10 MG/HR 10 mls/hr IV .Q10H AMEYA Rx#: [id number] Norepinephrine 4 mg In 15.774 Sodium Chloride 0.9% 250 ml @ 0.05 MCG/KG/MIN 19. 717 mls/hr IV .[id number] AMEYA Rx#:[id number] Sodium Chloride 0.9% 1, 30 000 ml @ 20 mls/hr IV . Q24H AMEYA Rx#:[id number] Output: Urine 202 Other: Voiding Method Indwelling Catheter # Voids 1 Weight 103.5 kg GENERAL EXAM: Lethargic, stuporous 78-year-old white female, on BiPAP support with pressures of 12 and 6, FiO2 of 30%, unresponsive to painful stimuli HEAD: Normocephalic/atraumatic. EYES: Normal reaction of pupils, equal size. Conjunctiva pink, sclera white. NOSE: Clear with pink turbinates. THROAT: No erythema or exudates. NECK: No masses, no JVD, no thyroid enlargement, no adenopathy. CHEST: No chest wall deformity. Symmetrical expansion. LUNGS: Equal air entry with no crackles, wheeze, rhonchi or dullness. CVS: Regular rate and rhythm, normal S1 and S2, no gallops, no murmurs, no rubs ABDOMEN: Soft, nontender. No hepatosplenomegaly, normal bowel sounds, no guarding or rigidity. EXTREMITIES: No clubbing, no edema, no cyanosis, 2+ pulses and upper and lower extremities. MUSCULOSKELETAL: Muscle strength and tone normal. SPINE: No scoliosis or deformity SKIN: No rashes CENTRAL NERVOUS SYSTEM: Stuporous, unresponsive to painful stimuli No focal deficits, tone is normal in all 4 extremities. Results - Laboratory Findings CBC and BMP: 06/22/19 05:50 06/22/19 07:18 ABG ABG pH 7.28 (7.35-7.45) L 06/22/19 09:58 ABG pCO2 82 mmHg (35-45) H* 06/22/19 09:58 ABG pO2 60 mmHg (83-108) L 06/22/19 09:58 ABG O2 Saturation 88.3 % (94-97) L 06/22/19 09:58 PT/INR, D-dimer PT 11.6 sec (9.0-12.0) 06/21/19 11:37 INR 1.1 (<1.2) 06/21/19 11:37 Abnormal lab findings: Abnormal Labs 06/21/19 06/21/19 06/21/19 11:37 11:37 11:37 RBC 3.16 L Hgb 10.2 L Hct 32.4 L MCV 102.4 H D Lymphocytes # 0.9 L ABG pH ABG pCO2 ABG pO2 ABG HCO3 ABG Total CO2 ABG O2 Saturation VBG pCO2 VBG HCO3 Sodium Potassium 6.7 H* Chloride 91 L Carbon Dioxide 36 H BUN 56 H Creatinine 2.12 H Glucose 217 H POC Glucose (mg/dL) Plasma Lactic Acid Wild 3.1 H* Urine Appearance Urine Protein Urine Ketones Urine Blood Ur Leukocyte Esterase Urine RBC Urine WBC Ur Squamous Epith Cells Amorphous Sediment Urine Bacteria Hyaline Casts Urine Mucus 06/21/19 06/21/19 06/21/19 11:37 14:36 15:37 RBC Hgb Hct MCV Lymphocytes # ABG pH ABG pCO2 ABG pO2 ABG HCO3 ABG Total CO2 ABG O2 Saturation VBG pCO2 70 H* VBG HCO3 36 H Sodium Potassium Chloride Carbon Dioxide BUN Creatinine Glucose POC Glucose (mg/dL) 288 H Plasma Lactic Acid Wild 2.3 H* Urine Appearance Urine Protein Urine Ketones Urine Blood Ur Leukocyte Esterase Urine RBC Urine WBC Ur Squamous Epith Cells Amorphous Sediment Urine Bacteria Hyaline Casts Urine Mucus 06/21/19 06/21/19 06/21/19 17:15 18:11 19:26 RBC Hgb Hct MCV Lymphocytes # ABG pH ABG pCO2 ABG pO2 ABG HCO3 ABG Total CO2 ABG O2 Saturation VBG pCO2 VBG HCO3 Sodium 136 L Potassium 6.1 H* Chloride 91 L Carbon Dioxide 39 H BUN 57 H Creatinine 2.35 H Glucose 147 H POC Glucose (mg/dL) 179 H Plasma Lactic Acid Wild Urine Appearance Turbid H Urine Protein 1+ H Urine Ketones Urine Blood Moderate H Ur Leukocyte Esterase Large H Urine RBC 11 H Urine WBC 100 H Ur Squamous Epith Cells 99 H Amorphous Sediment Occasional H Urine Bacteria Moderate H Hyaline Casts 9 H Urine Mucus 06/21/19 06/22/19 06/22/19 20:46 01:56 02:30 RBC Hgb Hct MCV Lymphocytes # ABG pH ABG pCO2 ABG pO2 ABG HCO3 ABG Total CO2 ABG O2 Saturation VBG pCO2 VBG HCO3 Sodium Potassium 6.2 H* Chloride Carbon Dioxide BUN Creatinine Glucose POC Glucose (mg/dL) 170 H 140 H Plasma Lactic Acid Wild Urine Appearance Urine Protein Urine Ketones Urine Blood Ur Leukocyte Esterase Urine RBC Urine WBC Ur Squamous Epith Cells Amorphous Sediment Urine Bacteria Hyaline Casts Urine Mucus 06/22/19 06/22/19 06/22/19 03:30 05:50 06:27 RBC 2.66 L Hgb 9.0 L Hct 27.5 L MCV 103.6 H Lymphocytes # ABG pH 7.32 L ABG pCO2 70 H ABG pO2 56 L* ABG HCO3 36 H ABG Total CO2 38 H ABG O2 Saturation 87.6 L VBG pCO2 VBG HCO3 Sodium Potassium Chloride Carbon Dioxide BUN Creatinine Glucose POC Glucose (mg/dL) 173 H Plasma Lactic Acid Wild Urine Appearance Urine Protein Urine Ketones Urine Blood Ur Leukocyte Esterase Urine RBC Urine WBC Ur Squamous Epith Cells Amorphous Sediment Urine Bacteria Hyaline Casts Urine Mucus 06/22/19 06/22/19 06/22/19 07:18 09:30 09:58 RBC Hgb Hct MCV Lymphocytes # ABG pH 7.28 L ABG pCO2 82 H* ABG pO2 60 L ABG HCO3 38 H ABG Total CO2 41 H ABG O2 Saturation 88.3 L VBG pCO2 VBG HCO3 Sodium 136 L Potassium 6.2 H* Chloride 91 L Carbon Dioxide 37 H BUN 63 H Creatinine 2.51 H Glucose 123 H POC Glucose (mg/dL) Plasma Lactic Acid Wild Urine Appearance Urine Protein 1+ H Urine Ketones Trace H Urine Blood Ur Leukocyte Esterase Urine RBC Urine WBC Ur Squamous Epith Cells Amorphous Sediment Urine Bacteria Few H Hyaline Casts 57 H Urine Mucus Rare H 06/22/19 11:00 RBC Hgb Hct MCV Lymphocytes # ABG pH ABG pCO2 ABG pO2 ABG HCO3 ABG Total CO2 ABG O2 Saturation VBG pCO2 VBG HCO3 Sodium Potassium Chloride Carbon Dioxide BUN Creatinine Glucose POC Glucose (mg/dL) 109 H Plasma Lactic Acid Wild Urine Appearance Urine Protein Urine Ketones Urine Blood Ur Leukocyte Esterase Urine RBC Urine WBC Ur Squamous Epith Cells Amorphous Sediment Urine Bacteria Hyaline Casts Urine Mucus - Diagnostic Findings Chest x-ray: report reviewed, image reviewed Additional studies: EKG reviewed Assessment and Plan Plan: Assessment: #1. Acute hypoxic and hypercapnic respiratory failure related to acute exacerbation of CHF, with moderately impaired left ventricle systolic function of 40-45% #2. Mild periprosthetic regurgitation of the bioprosthetic aortic valve, [id number] mitral regurgitation, and moderate pulmonary hypertension of 57.4 mmHg PA systolic #3. Acute kidney injury #4. Hypotension, improved with hydration #5. Hypokalemia #6. Diabetes mellitus #7. Recent discharge from subacute rehab following a prolonged hospitalization for severe gastroenteritis, hypovolemic shock, acute kidney injury #8. History of aortic valve disease and previous replacement #9. Secondary pulmonary hypertension #10. Chronic atrial fibrillation #11. Parkinson's disease #12. Episodes of altered mental status requiring BiPAP support for hypercapnic respiratory failure during previous admission, and neurologic workup was negative #13. Hypothyroidism #14. Hyperlipidemia #15. Type 2 diabetes #16. History of coronary artery disease and previous bypass grafting Plan: Continue current medical treatment intensive care unit, Lasix drip, continue with BiPAP support, the family states that the patient does not want aggressive resuscitation or life support, we'll continue supportive treatment. Patient is being evaluated by cardiology, echocardiogram results have been reviewed. Chest x-ray showing fluid overload. Unfortunately overall prognosis appears to be poor, continue to closely follow and make further recommendations based on the clinical course. I performed a history & physical examination of the patient and discussed their management with my nurse practitioner, Eneida Hayes. I reviewed the nurse pra ctitioner's note and agree with the documented findings and plan of care. Lung sounds are positive for diminisheshed breath sounds. The findings and the impression was discussed with the patient. I attest to the documentation by the nurse practitioner. Time with Patient: Greater than 30
[2019-06-22 15:26] LABS: ABG Base Excess 9.9 mmol/L; ABG HCO3 36 mmol/L (21-25); ABG Oxygen Saturation 93.9 % (94-97); ABG PH 7.31 (7.35-7.45); ABG PO2 72 mmHg (83-108); ABG TCO2 38 mmol/L (19-24); Allen Test Performed? Yes
[2019-06-22 15:29] LABS: ABG PCO2 71 mmHg (35-45)
[2019-06-22] MEDS ORDERED: DEXTROSE 10 % IN WATER 250 ML IV ONE (16:25)
[2019-06-22 16:26] LABS: Glucose,Whole Blood 52 mg/dL (75-99)
[2019-06-22 16:40] LABS: Glucose,Whole Blood 63 mg/dL (75-99)
[2019-06-22 16:59] LABS: Glucose,Whole Blood 89 mg/dL (75-99)
[2019-06-22] MEDS ORDERED: FUROSEMIDE 10 MG/ML 4 ML VIAL IV STA (17:08)
[2019-06-22] MEDS ORDERED: DEXTROSE 10% IN WATER 500 ML in EMPTY BAG 1 BAG IV SCH (17:15)
[2019-06-22] MEDS: SODIUM CHLORIDE 0.9% 1,000 ML IV SCH (17:31)
[2019-06-22 18:14] LABS: Glucose,Whole Blood 126 mg/dL (75-99)
[2019-06-22 20:08] LABS: Glucose,Whole Blood 138 mg/dL (75-99)
[2019-06-22] MEDS: ATORVASTATIN 10 MG TAB PO SCH (20:22)
[2019-06-22 23:42] LABS: Glucose,Whole Blood 94 mg/dL (75-99)
[2019-06-23 04:07] LABS: Glucose,Whole Blood 87 mg/dL (75-99)
[2019-06-23] MEDS: INSULIN ASPART (NovoLOG) 100 UNIT/ML VIAL SQ SCH ×5 (04:09→20:05)
[2019-06-23 05:27] LABS: Magnesium 2.1 mg/dL (1.6-2.3)
[2019-06-23 05:39] LABS: Potassium 5.7 mmol/L (3.5-5.1)
[2019-06-23 05:43] LABS: HCT 27.7 % (34.0-46.0); HGB 9.3 gm/dL (11.4-16.0); MCH 32.7 pg (25.0-35.0); MCHC 33.5 g/dL (31.0-37.0); Mean Platelet Volume 7.3; Platelet Count 148 k/uL (150-450); RBC 2.83 m/uL (3.80-5.40); RDW 14.5 % (11.5-15.5); WBC 8.6 k/uL (3.8-10.6)
[2019-06-23 05:46] LABS: MCV 97.8 fL (80.0-100.0)
[2019-06-23] MEDS: LEVOTHYROXINE 112 MCG TAB PO SCH (06:11)
--- NOTE | 2019-06-23 07:38 | XR ---
EXAMINATION TYPE: XR chest 1V portable DATE OF EXAM: 06/23/2019 COMPARISON: 06/21/2019 HISTORY: Shortness of breath FINDINGS: There are bilateral pleural effusions with cardiomegaly and bibasilar infiltrate. There is a diffuse interstitial pattern. Postsurgical changes are noted. IMPRESSION: 1. Correlate for CHF otherwise consider pneumonia. 2. Bilateral hilar prominence may reflect pulmonary arterial hypertension. Short-term follow-up CT sc an of the chest is obtained exclude other etiologies.
[2019-06-23 07:43] LABS: Glucose,Whole Blood 82 mg/dL (75-99)
[2019-06-23 07:43] LABS: Glucose,Whole Blood 57 mg/dL (75-99)
[2019-06-23 07:47] LABS: Glucose,Whole Blood 110 mg/dL (75-99)
[2019-06-23] MEDS ORDERED: SODIUM CHLORIDE 0.9% 1,000 ML IV ONE (09:07)
--- NOTE | 2019-06-23 09:18 | P.PN ---
Subjective Progress Note Date: 06/23/19 Principal diagnosis: Acute hypoxic and hypercapnic respiratory failure related to acute exacerbation of CHF, urinary tract infection, septic shock This is 78-year-old white female patient of Dr. Bartholomew, with past medical history of chronic atrial fibrillation on anticoagulation, diabetes mellitus, dyslipidemia, hypertension, Parkinson's disease, hypothyroidism, chronic congestive heart failure, coronary artery disease with bypass grafting, previous surgery for aortic valve replacement. Patient presented to the emergency department on 06/21/2019 with complaints of worsening dyspnea and weakness. Patient apparently has a home pulse ox monitor and her pulse ox was in the 70s and 80s. Patient was recently hospitalized in April of this year with acute gastroenteritis of unknown etiology, and patient was critically ill during that admission with evidence of acute lactic acidosis, acute kidney injury, hypotension and hypovolemic shock, and patient required intensive care admission and monitoring. Patient also developed metabolic encephalopathy, and neurological workup was negative. Patient did develop worsening ascending weakness, and there was concern for possibility of Guillain-Vernon syndrome, but neurology felt it was unlikely. Patient's diarrhea gradually improved, she was opposed to have colonoscopy in the outpatient setting. Patient clinically imp roved and was eventually discharged to the [facility] for rehab therapy on 05/27/2019. Completed a course of Zosyn and Flagyl, C. diff screen was negative. During that admission patient did develop acute hypercapnic respiratory failure and generalized weakness of unknown etiology, and required BiPAP support. On 06/21/2019 patient was brought into the emergency department for evaluation of a dyspnea, and worsening weakness. Patient was recently discharged from the subacute rehab facility and was at home. Apparently she tried standing up earlier today and fell sideways, and patient apparently denied hitting injuries to her head. Denied any fever, or chills, denied any night sweats, denied chest pain. Most of the history was obtained from the chart, patient at the time of our evaluation is very difficult to arouse, there is a family member at the bedside who did provide some limited information in terms of her CODE STATUS. On 06/22/2019 we were called by the stepdown nurse taking care of the patient with concern of abnormal blood gases, that showed pO2 of 56, pCO2 of 70, and pH of 7.32. Admission blood work was negative for any evidence of leukocytosis, white blood cell count was 7.0, hemoglobin was 10.2 coagulation profile was within normal limits. Patient had evidence of acute kidney injury with a BUN of 657 and creatinine of 2.35, potassium of 6.1, and sodium of 136, BNP was 21,200, and troponin was negative 1. Patient had been oliguric, and urinalysis po sitive for signs of UTI. Patient was also hypotensive, was given a fluid bolus, and her potassium was treated with the 50% dextrose and insulin, however on this morning's labs potassium is persistently 6.2, nephrology has been consulted, Kayexalate has been given, chest x-ray shows increased density at the lung bases, blunting the costophrenic angles, central vascularity and interstitial or increased changes consistent with congestive heart failure and small pleural effusions. SHe received a dose of IV Lasix, she started making small amounts of urine, however neurologically she is increasingly more unresponsive, and subsequent blood gases showed worsening hypercapnic respiratory failure, with pH of 7.28, and pCO2 of 82, and this was done on BiPAP support with pressures of 12 and 6 and FiO2 of 30%. BiPAP settings were then changed to 16/6 and FiO2 of 30% and patient was transferred to the intensive care unit. Tatum catheter has been placed, patient being initiated on Lasix drip per nephrology. Repeat urinalysis did not show evidence of infection. Patient has been afebrile. Patient's family member states patient is a DO NOT RESUSCITATE CODE STATUS and she is able to provide proof she has a necessary paperwork at home. For now we will continue supportive treatment, and patient will be monitored closely in the intensive care unit. On 06/23/2017 patient seen in follow-up in the intensive care unit, she remains on BiPAP support with pressures of 16/6, and FiO2 of 30%, she started to open her eyes and respond better, compared to yesterday's exam, yesterday she was on Lasix drip however she became quite hypotensive and anuric, Lasix has been discontinued, and patient was initiated on Levothroid, earlier in the day she had been given some IV fluids. This morning she remains on 0.9 at 20, levo fed is at 5 mics per minute. And patient is starting to make amounts of urine in the order of 60 ML per hour, urine culture came back positive for gram-negative bacilli, final cultures pending, blood culture showed no growth, no fever or chills, we'll initiate the patient on empiric antibiotics in the form of Rocephin. Sodium is 133, potassium is 5.7, chloride is 91, CO2 is 38, B1 is 66, creatinine is 2.3, slightly improved renal profile from yesterday, proBNP was elevated at 21,200, and troponin was negative at admission. US of the kidneys showed no evidence of hydronephrosis Chest x-ray has been reviewed still showing changes compatible with CHF exacerbation hilar prominence consistent with pulmonary arterial hypertension. Hemodynamically seems to be slightly improved, no diarrhea, patient had a solid bowel movement yesterday. Objective - Vital Signs Vital signs: Vital Signs Temp 98.7 F 06/23/19 08:00 Pulse 62 06/23/19 08:15 Resp 21 06/23/19 08:15 BP 133/63 06/23/19 08:15 Pulse Ox 95 06/23/19 08:15 Intake & Output 06/22/19 06/23/19 06/23/19 18:59 06:59 18:59 Intake Total 1006.774 804.470 55.576 Output Total 277 730 120 Balance 729.774 74.470 -64.424 Weight 108.3 kg Intake: Intake, IV Titration 1006.774 624.470 55.576 Amount Calcium Gluconate 1 gm In 100 Sodium Chloride 0.9% 100 ml @ 100 mls/hr IVPB ONCE ONE Rx#:[id number] Dextrose 10 % in Water 500 250 ml @ 999 mls/hr IV ONCE ONE Rx#:[id number] Dextrose 10 % in Water 250 250 ml @ 999 mls/hr IV ONCE STA Rx#:[id number] Furosemide 100 mg In 11 Sodium Chloride 0.9% 90 ml @ 10 MG/HR 10 mls/hr IV .Q10H AMEYA Rx#: [id number] Norepinephrine 4 mg In 15.774 384.470 15.576 Sodium Chloride 0.9% 250 ml @ 0.05 MCG/KG/MIN 19. 717 mls/hr IV .[id number] AMEYA Rx#:[id number] Sodium Chloride 0.9% 1, 130 240 40 000 ml @ 20 mls/hr IV . Q24H AMEYA Rx#:[id number] Oral 180 Output: Urine 277 730 120 Other: Voiding Method Indwelling Catheter Indwelling Catheter Indwelling Catheter # Voids 1 # Bowel Movements 1 - Exam GENERAL EXAM: Lethargic, stuporous 78-year-old white female, on BiPAP support with pressures of 12 and 6, FiO2 of 30%, wakes up to verbal stimuli, and tries to provide simple verbal answers HEAD: Normocephalic/atraumatic. EYES: Normal reaction of pupils, equal size. Conjunctiva pink, sclera white. NOSE: Clear with pink turbinates. THROAT: No erythema or exudates. NECK: No masses, no JVD, no thyroid enlargement, no adenopathy. CHEST: No chest wall deformity. Symmetrical expansion. LUNGS: Equal air entry with no crackles, wheeze, rhonchi or dullness. CVS: Regular rate and rhythm, normal S1 and S2, no gallops, no murmurs, no rubs ABDOMEN: Soft, nontender. No hepatosplenomegaly, normal bowel sounds, no guarding or rigidity. EXTREMITIES: No clubbing, no edema, no cyanosis, 2+ pulses and upper and lower extremities. MUSCULOSKELETAL: Muscle strength and tone normal. SPINE: No scoliosis or deformity SKIN: No rashes CENTRAL NERVOUS SYSTEM: As possible to verbal stimuli, and No focal deficits, tone is normal in all 4 extremities. - Labs CBC & Chem 7: 06/23/19 04:36 06/23/19 04:36 Labs: Abnormal Lab Results - Last 24 Hours (Table) 06/22/19 06/22/19 06/22/19 Range/Units 09:30 09:58 11:00 RBC (3.80-5.40) m/uL Hgb (11.4-16.0) gm/dL Hct (34.0-46.0) % Plt Count (150-450) k/uL ABG pH 7.28 L (7.35-7.45) ABG pCO2 82 H* (35-45) mmHg ABG pO2 60 L (83-108) mmHg ABG HCO3 38 H (21-25) mmol/L ABG Total CO2 41 H (19-24) mmol/L ABG O2 Saturation 88.3 L (94-97) % Sodium (137-145) mmol/L Potassium (3.5-5.1) mmol/L Chloride (98-107) mmol/L Carbon Dioxide (22-30) mmol/L BUN (7-17) mg/dL Creatinine (0.52-1.04) mg/dL POC Glucose (mg/dL) 109 H (75-99) mg/dL Urine Protein 1+ H (Negative) Urine Ketones Trace H (Negative) Urine Bacteria Few H (None) /hpf Hyaline Casts 57 H (0-2) /lpf Urine Mucus Rare H (None) /hpf 06/22/19 06/22/19 06/22/19 Range/Units 15:17 15:22 16:14 RBC (3.80-5.40) m/uL Hgb (11.4-16.0) gm/dL Hct (34.0-46.0) % Plt Count (150-450) k/uL ABG pH 7.31 L (7.35-7.45) ABG pCO2 71 H* (35-45) mmHg ABG pO2 72 L (83-108) mmHg ABG HCO3 36 H (21-25) mmol/L ABG Total CO2 38 H (19-24) mmol/L ABG O2 Saturation 93.9 L (94-97) % Sodium (137-145) mmol/L Potassium 5.8 H (3.5-5.1) mmol/L Chloride (98-107) mmol/L Carbon Dioxide (22-30) mmol/L BUN (7-17) mg/dL Creatinine (0.52-1.04) mg/dL POC Glucose (mg/dL) 52 L (75-99) mg/dL Urine Protein (Negative) Urine Ketones (Negative) Urine Bacteria (None) /hpf Hyaline Casts (0-2) /lpf Urine Mucus (None) /hpf 06/22/19 06/22/19 06/22/19 Range/Units 16:28 17:04 18:02 RBC (3.80-5.40) m/uL Hgb (11.4-16.0) gm/dL Hct (34.0-46.0) % Plt Count (150-450) k/uL ABG pH (7.35-7.45) ABG pCO2 (35-45) mmHg ABG pO2 (83-108) mmHg ABG HCO3 (21-25) mmol/L ABG Total CO2 (19-24) mmol/L ABG O2 Saturation (94-97) % Sodium (137-145) mmol/L Potassium (3.5-5.1) mmol/L Chloride (98-107) mmol/L Carbon Dioxide (22-30) mmol/L BUN (7-17) mg/dL Creatinine (0.52-1.04) mg/dL POC Glucose (mg/dL) 63 L 57 L 126 H (75-99) mg/dL Urine Protein (Negative) Urine Ketones (Negative) Urine Bacteria (None) /hpf Hyaline Casts (0-2) /lpf Urine Mucus (None) /hpf 06/22/19 06/22/19 06/23/19 Range/Units 19:57 23:48 04:36 RBC (3.80-5.40) m/uL Hgb (11.4-16.0) gm/dL Hct (34.0-46.0) % Plt Count (150-450) k/uL ABG pH (7.35-7.45) ABG pCO2 (35-45) mmHg ABG pO2 (83-108) mmHg ABG HCO3 (21-25) mmol/L ABG Total CO2 (19-24) mmol/L ABG O2 Saturation (94-97) % Sodium 133 L (137-145) mmol/L Potassium 5.5 H 5.7 H (3.5-5.1) mmol/L Chloride 91 L (98-107) mmol/L Carbon Dioxide 38 H (22-30) mmol/L BUN 66 H (7-17) mg/dL Creatinine 2.30 H (0.52-1.04) mg/dL POC Glucose (mg/dL) 138 H (75-99) mg/dL Urine Protein (Negative) Urine Ketones (Negative) Urine Bacteria (None) /hpf Hyaline Casts (0-2) /lpf Urine Mucus (None) /hpf 06/23/19 06/23/19 Range/Units 04:36 07:35 RBC 2.83 L (3.80-5.40) m/uL Hgb 9.3 L (11.4-16.0) gm/dL Hct 27.7 L (34.0-46.0) % Plt Count 148 L (150-450) k/uL ABG pH (7.35-7.45) ABG pCO2 (35-45) mmHg ABG pO2 (83-108) mmHg ABG HCO3 (21-25) mmol/L ABG Total CO2 (19-24) mmol/L ABG O2 Saturation (94-97) % Sodium (137-145) mmol/L Potassium (3.5-5.1) mmol/L Chloride (98-107) mmol/L Carbon Dioxide (22-30) mmol/L BUN (7-17) mg/dL Creatinine (0.52-1.04) mg/dL POC Glucose (mg/dL) 110 H (75-99) mg/dL Urine Protein (Negative) Urine Ketones (Negative) Urine Bacteria (None) /hpf Hyaline Casts (0-2) /lpf Urine Mucus (None) /hpf Microbiology - Last 24 Hours (Table) 06/21/19 17:15 Urine Culture - Preliminary Urine,Voided Gram Neg Bacilli 06/21/19 11:37 Blood Culture - Preliminary Blood No Growth after 24 hours Assessment and Plan Plan: Assessment: #1. Acute hypoxic and hypercapnic respiratory failure related to acute exacerbation of CHF, with moderately impaired left ventricle systolic function of 40-45% #2. Urinary tract infection, septic shock #3. Mild periprosthetic regurgitation of the bioprosthetic aortic valve, [id number] mitral regurgitation, and moderate pulmonary hypertension of 57.4 mmHg PA systolic #4. Acute kidney injury #5. Hyperkalemia, improving #6. Diabetes mellitus #7. Recent discharge from subacute rehab following a prolonged hospitalization for severe gastroenteritis, hypovolemic shock, acute kidney injury #8. History of aortic valve disease and previous replacement #9. Secondary pulmonary hypertension #10. Chronic atrial fibrillation #11. Parkinson's disease #12. Episodes of altered mental status requiring BiPAP support for hypercapnic respiratory failure during previous admission, and neurologic workup was negative #13. Hypothyroidism #14. Hyperlipidemia #15. Type 2 diabetes #16. History of coronary artery disease and previous bypass grafting Plan: Continue close hemodynamic monitoring, continue BiPAP support, patient is more arousable, and tries to provide simple verbal answers, clinically seems to have somewhat improved from yesterday's exam, she is starting to make urine, in the order of 60 ML per hour, urine culture came back positive for gram-negative bacilli, we will add empiric Rocephin, will await final culture, although there is no fever or chills, no leukocytosis, we will send a pro-calcitonin level, we'll give the patient a liter bolus, we'll obtain a random serum cortisol level, we'll try to wean off the levo fed, midodrine 10 mg 3 times daily has been added. Continue with oral anticoagulation, and GI prophylaxis, his chest x-ray has been reviewed, still showing changes compatible with the CHF, and pulmonary hypertension, no significant change from yesterday. Patient will remain in the intensive care unit, patient's family has been updated on patient's condition, at this point she remains a DO NOT RESUSCITATE, they would like to continue with supportive treatment for as long she shown clinical improvement I performed a history & physical examination of the patient and discussed their management with my nurse practitioner, Eneida Hayes. I reviewed the nurse practitioner's note and agree with the documented findings and plan of care. Lung sounds are positive for diminisheshed breath sounds. The findings and the impression was discussed with the patient. I attest to the documentation by the nurse practitioner. Time with Patient: Greater than 30
[2019-06-23] MEDS: FUROSEMIDE 100 MG in SODIUM CHLORIDE 0.9% 90 ML IV SCH (09:41)
--- NOTE | 2019-06-23 09:48 | P.PN ---
Subjective Patient is seen in follow-up for acute kidney injury. Renal function is a little better today. Creatinine 2.30. Currently on BiPAP. She is on 5 mics of Levophed. Blood pressure is improved. Urine output about 60 mL an hour. Family present at bedside. Vital signs are stable. General: The patient appeared well nourished and normally developed. HEENT: Head exam is unremarkable. Neck is without jugular venous distension. LUNGS: Breath sounds decreased. HEART: Rate and Rhythm are regular. First and second heart sounds normal. No murmurs, rubs or gallops. ABDOMEN: Bowel sounds present. EXTREMITITES: 2+ edema. Objective - Vital Signs Vital signs: Vital Signs Temp 98.7 F 06/23/19 08:00 Pulse 62 06/23/19 08:15 Resp 21 06/23/19 08:15 BP 133/63 06/23/19 08:15 Pulse Ox 95 06/23/19 08:15 Intake & Output 06/22/19 06/23/19 06/23/19 18:59 06:59 18:59 Intake Total 1006.774 804.470 55.576 Output Total 277 730 120 Balance 729.774 74.470 -64.424 Weight 108.3 kg Intake: Intake, IV Titration 1006.774 624.470 55.576 Amount Calcium Gluconate 1 gm In 100 Sodium Chloride 0.9% 100 ml @ 100 mls/hr IVPB ONCE ONE Rx#:[id number] Dextrose 10 % in Water 500 250 ml @ 999 mls/hr IV ONCE ONE Rx#:[id number] Dextrose 10 % in Water 250 250 ml @ 999 mls/hr IV ONCE STA Rx#:[id number] Furosemide 100 mg In 11 Sodium Chloride 0.9% 90 ml @ 10 MG/HR 10 mls/hr IV .Q10H AMEYA Rx#: [id number] Norepinephrine 4 mg In 15.774 384.470 15.576 Sodium Chloride 0.9% 250 ml @ 0.05 MCG/KG/MIN 19. 717 mls/hr IV .[id number] AMEYA Rx#:[id number] Sodium Chloride 0.9% 1, 130 240 40 000 ml @ 20 mls/hr IV . Q24H AMEYA Rx#:[id number] Oral 180 Output: Urine 277 730 120 Other: Voiding Method Indwelling Catheter Indwelling Catheter Indwelling Catheter # Voids 1 # Bowel Movements 1 - Labs CBC & Chem 7: 06/23/19 04:36 06/23/19 04:36 Labs: Abnormal Lab Results - Last 24 Hours (Table) 06/22/19 06/22/19 06/22/19 Range/Units 09:30 09:58 11:00 RBC (3.80-5.40) m/uL Hgb (11.4-16.0) gm/dL Hct (34.0-46.0) % Plt Count (150-450) k/uL ABG pH 7.28 L (7.35-7.45) ABG pCO2 82 H* (35-45) mmHg ABG pO2 60 L (83-108) mmHg ABG HCO3 38 H (21-25) mmol/L ABG Total CO2 41 H (19-24) mmol/L ABG O2 Saturation 88.3 L (94-97) % Sodium (137-145) mmol/L Potassium (3.5-5.1) mmol/L Chloride (98-107) mmol/L Carbon Dioxide (22-30) mmol/L BUN (7-17) mg/dL Creatinine (0.52-1.04) mg/dL POC Glucose (mg/dL) 109 H (75-99) mg/dL Urine Protein 1+ H (Negative) Urine Ketones Trace H (Negative) Urine Bacteria Few H (None) /hpf Hyaline Casts 57 H (0-2) /lpf Urine Mucus Rare H (None) /hpf 06/22/19 06/22/19 06/22/19 Range/Units 15:17 15:22 16:14 RBC (3.80-5.40) m/uL Hgb (11.4-16.0) gm/dL Hct (34.0-46.0) % Plt Count (150-450) k/uL ABG pH 7.31 L (7.35-7.45) ABG pCO2 71 H* (35-45) mmHg ABG pO2 72 L (83-108) mmHg ABG HCO3 36 H (21-25) mmol/L ABG Total CO2 38 H (19-24) mmol/L ABG O2 Saturation 93.9 L (94-97) % Sodium (137-145) mmol/L Potassium 5.8 H (3.5-5.1) mmol/L Chloride (98-107) mmol/L Carbon Dioxide (22-30) mmol/L BUN (7-17) mg/dL Creatinine (0.52-1.04) mg/dL POC Glucose (mg/dL) 52 L (75-99) mg/dL Urine Protein (Negative) Urine Ketones (Negative) Urine Bacteria (None) /hpf Hyaline Casts (0-2) /lpf Urine Mucus (None) /hpf 06/22/19 06/22/19 06/22/19 Range/Units 16:28 17:04 18:02 RBC (3.80-5.40) m/uL Hgb (11.4-16.0) gm/dL Hct (34.0-46.0) % Plt Count (150-450) k/uL ABG pH (7.35-7.45) ABG pCO2 (35-45) mmHg ABG pO2 (83-108) mmHg ABG HCO3 (21-25) mmol/L ABG Total CO2 (19-24) mmol/L ABG O2 Saturation (94-97) % Sodium (137-145) mmol/L Potassium (3.5-5.1) mmol/L Chloride (98-107) mmol/L Carbon Dioxide (22-30) mmol/L BUN (7-17) mg/dL Creatinine (0.52-1.04) mg/dL POC Glucose (mg/dL) 63 L 57 L 126 H (75-99) mg/dL Urine Protein (Negative) Urine Ketones (Negative) Urine Bacteria (None) /hpf Hyaline Casts (0-2) /lpf Urine Mucus (None) /hpf 06/22/19 06/22/19 06/23/19 Range/Units 19:57 23:48 04:36 RBC (3.80-5.40) m/uL Hgb (11.4-16.0) gm/dL Hct (34.0-46.0) % Plt Count (150-450) k/uL ABG pH (7.35-7.45) ABG pCO2 (35-45) mmHg ABG pO2 (83-108) mmHg ABG HCO3 (21-25) mmol/L ABG Total CO2 (19-24) mmol/L ABG O2 Saturation (94-97) % Sodium 133 L (137-145) mmol/L Potassium 5.5 H 5.7 H (3.5-5.1) mmol/L Chloride 91 L (98-107) mmol/L Carbon Dioxide 38 H (22-30) mmol/L BUN 66 H (7-17) mg/dL Creatinine 2.30 H (0.52-1.04) mg/dL POC Glucose (mg/dL) 138 H (75-99) mg/dL Urine Protein (Negative) Urine Ketones (Negative) Urine Bacteria (None) /hpf Hyaline Casts (0-2) /lpf Urine Mucus (None) /hpf 06/23/19 06/23/19 Range/Units 04:36 07:35 RBC 2.83 L (3.80-5.40) m/uL Hgb 9.3 L (11.4-16.0) gm/dL Hct 27.7 L (34.0-46.0) % Plt Count 148 L (150-450) k/uL ABG pH (7.35-7.45) ABG pCO2 (35-45) mmHg ABG pO2 (83-108) mmHg ABG HCO3 (21-25) mmol/L ABG Total CO2 (19-24) mmol/L ABG O2 Saturation (94-97) % Sodium (137-145) mmol/L Potassium (3.5-5.1) mmol/L Chloride (98-107) mmol/L Carbon Dioxide (22-30) mmol/L BUN (7-17) mg/dL Creatinine (0.52-1.04) mg/dL POC Glucose (mg/dL) 110 H (75-99) mg/dL Urine Protein (Negative) Urine Ketones (Negative) Urine Bacteria (None) /hpf Hyaline Casts (0-2) /lpf Urine Mucus (None) /hpf Microbiology - Last 24 Hours (Table) 06/21/19 17:15 Urine Culture - Preliminary Urine,Voided Gram Neg Bacilli 06/21/19 11:37 Blood Culture - Preliminary Blood No Growth after 24 hours Assessment and Plan Plan: Assessment: 1. Acute kidney injury secondary to ATN secondary to hypotension and cardior enal syndrome. Renal function little better. Creatinine 2.3. No evidence of urinary retention. No evidence of hydronephrosis noted on kidney ultrasound. 2. Hyperkalemia secondary to acute kidney injury and potassium supplementation. Improved. This morning's lab draw was hemolyzed. 3. Acute mixed hypercapnic and hypoxic respiratory failure. 4. Diabetes mellitus. 5. Volume overload. 6. Acute on chronic systolic CHF with ejection fraction of 40-45% with mild to moderate mitral regurgitation and moderate pulmonary hypertension. Plan: Midodrine added this morning. Wean Levophed. Start Lasix drip at 5 mL an hour. Can further increase the dose if hemodynamically able to tolerate. Continue to monitor renal function and urine output. Repeat potassium level.
[2019-06-23] MEDS: NOREPINEPHRINE 4 MG in SODIUM CHLORIDE 0.9% 250 ML IV SCH (10:10)
[2019-06-23] MEDS: APIXABAN 5 MG TAB PO SCH (10:46)
[2019-06-23] MEDS: AMIODARONE 200 MG TAB PO SCH (10:46)
[2019-06-23] MEDS: CARBIDOPA-LEVODOPA 25-100 MG 1 EACH TAB PO SCH ×4 (10:46→21:55)
[2019-06-23] MEDS: ASPIRIN 81 MG PO SCH (10:47)
[2019-06-23] MEDS: PANTOPRAZOLE 40 MG TABLET PO SCH (10:47)
[2019-06-23] MEDS: METOLAZONE 5 MG TAB PO SCH (10:49)
[2019-06-23] MEDS: glipiZIDE 5 MG TAB PO SCH (10:56)
[2019-06-23] MEDS: METOPROLOL TARTRATE 25 MG TAB PO SCH ×2 (10:56→21:48)
[2019-06-23 11:56] LABS: Glucose,Whole Blood 123 mg/dL (75-99)
[2019-06-23] MEDS: MIDODRINE 5 MG TAB PO SCH ×2 (12:04→17:32)
--- NOTE | 2019-06-23 13:03 | PN ---
PROGRESS NOTE Monik is a 78-year-old lady that is admitted to hospital with renal insufficiency, hyperkalemia and chronic persistent atrial fibrillation. She has known CAD and had prior bypass surgery and had an aortic valve replacement. The patient has known atrial fibrillation and underwent cardioversion. This morning, patient is doing better. Her urine output had improved, hyperkalemia is improving and the bradycardia is improving. Patient was on a beta vale, which I held. Patient is in atrial flutter with controlled ventricular rate. On exam, heart rate is 70 beats per minute, blood pressure 127/57, respiratory rate 18. Chest exam reveals good air entry bilaterally. Heart exam reveals first and second heart sounds, irregular rhythm. No murmur. Abdomen is soft. Exam of extremities reveal 1+ edema. Peripheral pulses are felt. Patient is currently on aspirin, Eliquis 5 b.i.d., Lipitor 10 q. daily, Sinemet, insulin, Glucotrol, Synthroid, Zaroxolyn, Lopressor. ASSESSMENT: 1. Acute on chronic diastolic heart failure. 2. Acute on chronic kidney failure. 3. History of aortic valve replacement. 4. History of bypass surgery. 5. Persistent atrial fibrillation. PLAN: I will continue her on her current medications. Continue the anticoagulant. MMODL / IJN: [id number] /
[2019-06-23] MEDS ORDERED: SODIUM POLYSTYRENE SULFONATE 15 GM/60 ML BOTTLE PO STA (15:31)
--- NOTE | 2019-06-23 15:49 | P.PN ---
Subjective Progress Note Date: 06/23/19 The patient is a 78-year-old female with a PMH of coronary artery disease status post CABG, bioprosthetic AVR, A. fib (on Eliquis), diabetes mellitus, hypertension, hyperlipidemia, Parkinson's disease, and HFpEF (on home oxygen), presented to the ED for SOB and weakness. The patient had undergone an extensive evaluation in the ED and was noted to be in severe hypercapnia with pCO2 of 70, hyperkalemic to 6.7, lactic acidosis of 3.1, w/ NICA (BUN 57 and Cr 2.35, up from a baseline of 18 and 1 respectively). The patient's mental status began to deteriorate and she was started on BiPAP and was admitted to the MICU for further management. The patient was also noted to be hypotensive for which she was started on the Levophed infusion. Cardiology evaluated the patient and noted that she was in acute exacerbation of diastolic congestive heart failure, for which she was started on the Lasix infusion. Nephrology was also consulted and started the patient on Midodrine. The patient was seen and evaluated at the bedside on 06/23 in the medical ICU. She was on BiPAP, resting comfortably in the bed. She was in good spirits and was alert and awake and answering questions appropriately. She noted feeling well and denied any active complaints. She noted that her breathing had improved and denied chest pain, fever, chills, cough, nausea, or vomiting. Objective - Vital Signs Vital signs: Vital Signs Temp 98.1 F 06/23/19 12:00 Pulse 63 06/23/19 12:15 Resp 20 06/23/19 12:15 BP 115/64 06/23/19 12:15 Pulse Ox 96 06/23/19 12:15 Intake & Output 06/22/19 06/23/19 06/23/19 18:59 06:59 18:59 Intake Total 1006.774 804.470 466.911 Output Total 277 730 420 Balance 729.774 74.470 46.911 Weight 108.3 kg Intake: Intake, IV Titration 1006.774 624.470 166.911 Amount Calcium Gluconate 1 gm In 100 Sodium Chloride 0.9% 100 ml @ 100 mls/hr IVPB ONCE ONE Rx#:[id number] Dextrose 10 % in Water 500 250 ml @ 999 mls/hr IV ONCE ONE Rx#:[id number] Dextrose 10 % in Water 250 250 ml @ 999 mls/hr IV ONCE STA Rx#:[id number] Furosemide 100 mg In 11 Sodium Chloride 0.9% 90 ml @ 10 MG/HR 10 mls/hr IV .Q10H AMEYA Rx#: [id number] Furosemide 100 mg In 15 Sodium Chloride 0.9% 90 ml @ 5 MG/HR 5 mls/hr IV .Q20H AMEYA Rx#:[id number] Norepinephrine 4 mg In 15.774 384.470 61.911 Sodium Chloride 0.9% 250 ml @ 0.05 MCG/KG/MIN 19. 717 mls/hr IV .[id number] AMEYA Rx#:[id number] Sodium Chloride 0.9% 1, 130 240 40 000 ml @ 20 mls/hr IV . Q24H AMEYA Rx#:[id number] Sodium Chloride 0.9% 1, 50 000 ml @ 999 mls/hr IV . Q1H1M ONE Rx#:[id number] Oral 180 300 Output: Urine 277 730 420 Other: Voiding Method Indwelling Catheter Indwelling Catheter Indwelling Catheter # Voids 1 # Bowel Movements 1 - Exam General: Non-toxic, in no acute distress, appears stated age, obese, on BiPAP HEENT: NC/AT, anicteric sclerae, moist conjunctiva, no lid-lag, PERRLA Cardiovascular: S1/S2 wnl, no murmurs, rubs, or gallops Lungs: Bibasilar rales, normal respiratory effort, no accessory muscle use Abdominal: Soft, non-tender, non-distended, no guarding, rebound, or rigidity Skin: Warm, dry Extremities: 2+ lower extremity pitting edema, no contractures Psychiatric: Alert and oriented to person, place and time, appropriate affect Neuro: CN II-XII grossly intact, Strength 4/5 in all 4 extremities, Speech intact, Sensation to light touch grossly intact throughout - Labs CBC & Chem 7: 06/23/19 04:36 06/23/19 09:30 Labs: Abnormal Lab Results - Last 24 Hours (Table) 06/22/19 06/22/19 06/22/19 Range/Units 15:17 15:22 16:14 RBC (3.80-5.40) m/uL Hgb (11.4-16.0) gm/dL Hct (34.0-46.0) % Plt Count (150-450) k/uL ABG pH 7.31 L (7.35-7.45) ABG pCO2 71 H* (35-45) mmHg ABG pO2 72 L (83-108) mmHg ABG HCO3 36 H (21-25) mmol/L ABG Total CO2 38 H (19-24) mmol/L ABG O2 Saturation 93.9 L (94-97) % Sodium (137-145) mmol/L Potassium 5.8 H (3.5-5.1) mmol/L Chloride (98-107) mmol/L Carbon Dioxide (22-30) mmol/L BUN (7-17) mg/dL Creatinine (0.52-1.04) mg/dL POC Glucose (mg/dL) 52 L (75-99) mg/dL 06/22/19 06/22/19 06/22/19 Range/Units 16:28 17:04 18:02 RBC (3.80-5.40) m/uL Hgb (11.4-16.0) gm/dL Hct (34.0-46.0) % Plt Count (150-450) k/uL ABG pH (7.35-7.45) ABG pCO2 (35-45) mmHg ABG pO2 (83-108) mmHg ABG HCO3 (21-25) mmol/L ABG Total CO2 (19-24) mmol/L ABG O2 Saturation (94-97) % Sodium (137-145) mmol/L Potassium (3.5-5.1) mmol/L Chloride (98-107) mmol/L Carbon Dioxide (22-30) mmol/L BUN (7-17) mg/dL Creatinine (0.52-1.04) mg/dL POC Glucose (mg/dL) 63 L 57 L 126 H (75-99) mg/dL 06/22/19 06/22/19 06/23/19 Range/Units 19:57 23:48 04:36 RBC (3.80-5.40) m/uL Hgb (11.4-16.0) gm/dL Hct (34.0-46.0) % Plt Count (150-450) k/uL ABG pH (7.35-7.45) ABG pCO2 (35-45) mmHg ABG pO2 (83-108) mmHg ABG HCO3 (21-25) mmol/L ABG Total CO2 (19-24) mmol/L ABG O2 Saturation (94-97) % Sodium 133 L (137-145) mmol/L Potassium 5.5 H 5.7 H (3.5-5.1) mmol/L Chloride 91 L (98-107) mmol/L Carbon Dioxide 38 H (22-30) mmol/L BUN 66 H (7-17) mg/dL Creatinine 2.30 H (0.52-1.04) mg/dL POC Glucose (mg/dL) 138 H (75-99) mg/dL 06/23/19 06/23/19 06/23/19 Range/Units 04:36 07:35 09:30 RBC 2.83 L (3.80-5.40) m/uL Hgb 9.3 L (11.4-16.0) gm/dL Hct 27.7 L (34.0-46.0) % Plt Count 148 L (150-450) k/uL ABG pH (7.35-7.45) ABG pCO2 (35-45) mmHg ABG pO2 (83-108) mmHg ABG HCO3 (21-25) mmol/L ABG Total CO2 (19-24) mmol/L ABG O2 Saturation (94-97) % Sodium (137-145) mmol/L Potassium 5.3 H (3.5-5.1) mmol/L Chloride (98-107) mmol/L Carbon Dioxide (22-30) mmol/L BUN (7-17) mg/dL Creatinine (0.52-1.04) mg/dL POC Glucose (mg/dL) 110 H (75-99) mg/dL 06/23/19 Range/Units 11:45 RBC (3.80-5.40) m/uL Hgb (11.4-16.0) gm/dL Hct (34.0-46.0) % Plt Count (150-450) k/uL ABG pH (7.35-7.45) ABG pCO2 (35-45) mmHg ABG pO2 (83-108) mmHg ABG HCO3 (21-25) mmol/L ABG Total CO2 (19-24) mmol/L ABG O2 Saturation (94-97) % Sodium (137-145) mmol/L Potassium (3.5-5.1) mmol/L Chloride (98-107) mmol/L Carbon Dioxide (22-30) mmol/L BUN (7-17) mg/dL Creatinine (0.52-1.04) mg/dL POC Glucose (mg/dL) 123 H (75-99) mg/dL Microbiology - Last 24 Hours (Table) 06/21/19 11:37 Blood Culture - Preliminary Blood No Growth after 48 hours 06/21/19 17:15 Urine Culture - Preliminary Urine,Voided Gram Neg Bacilli Assessment and Plan Plan: Hypoxic and hypercapnic respiratory failure -Continue with BiPAP -Repeat ABG -Mentation significantly improved Septic shock secondary to UTI -C/w Ceftriaxone -F/u Urine cultures -C/w Levophed infusion -Cortisol level 21 -- wnl NICA secondary to acute tubular necrosis -Nephrology recommendations appreciated -Continue with Lasix infusion -Monitor BMP Hyperkalemia -Likely secondary to NICA -Administered Kayexalate -Monitor BMP Diastolic CHF exacerbation -Continue with Lasix infusion -Cardiology recommendations appreciated -C/w Midodrine Chronic Afib -C/w Eliquis Type 2 DM -TON with FS CAD s/p CABG w/ bioprosthetic AVR -C/w Aspirin and Lipitor Hypothyroidism -C/w Levothyroxine DVT prophylaxis -Eliquis Discussed with: Patient Anticipated discharge date: 3-[address]: Home A total of 40 minutes was spent on the care of this complex patient more than 50% of the time was spent in counseling and care coordination.
[2019-06-23 17:11] LABS: Glucose,Whole Blood 122 mg/dL (75-99)
[2019-06-23] MEDS: SODIUM CHLORIDE 0.9% 1,000 ML IV SCH (18:02)
[2019-06-23 20:07] LABS: Glucose,Whole Blood 174 mg/dL (75-99)
[2019-06-23] MEDS: APIXABAN 2.5 MG TABLET PO SCH (21:55)
[2019-06-23] MEDS: ATORVASTATIN 10 MG TAB PO SCH (21:55)
[2019-06-23 23:48] LABS: Glucose,Whole Blood 129 mg/dL (75-99)
[2019-06-24] MEDS: SODIUM CHLORIDE 0.9% 1,000 ML IV SCH (01:59)
[2019-06-24] MEDS: INSULIN ASPART (NovoLOG) 100 UNIT/ML VIAL SQ SCH ×6 (02:00→21:28)
[2019-06-24 04:13] LABS: Glucose,Whole Blood 111 mg/dL (75-99)
[2019-06-24] MEDS: NOREPINEPHRINE 4 MG in SODIUM CHLORIDE 0.9% 250 ML IV SCH (05:21)
[2019-06-24 05:45] LABS: Basophils % (A) 0 %; Eosinophils # (A) 0.1 k/uL (0-0.7); Eosinophils % (A) 2 %; HCT 25.2 % (34.0-46.0); HGB 8.4 gm/dL (11.4-16.0); Lymphocytes # (A) 1.1 k/uL (1.0-4.8); Lymphocytes % (A) 19 %; MCH 33.3 pg (25.0-35.0); MCHC 33.2 g/dL (31.0-37.0); MCV 100.4 fL (80.0-100.0); Macrocytosis Slight; Mean Platelet Volume 6.1; Monocytes # (A) 0.4 k/uL (0-1.0); Monocytes % (A) 6 %; Neutrophils # (A) 4.1 k/uL (1.3-7.7); Neutrophils % (A) 70 %; Platelet Count 206 k/uL (150-450); RBC 2.51 m/uL (3.80-5.40); RDW 14.2 % (11.5-15.5); WBC 5.8 k/uL (3.8-10.6)
[2019-06-24 06:09] LABS: Calcium 8.9 mg/dL (8.4-10.2); Potassium 4.1 mmol/L (3.5-5.1)
[2019-06-24] MEDS: MIDODRINE 5 MG TAB PO SCH ×3 (06:51→17:26)
[2019-06-24] MEDS: LEVOTHYROXINE 112 MCG TAB PO SCH (06:52)
[2019-06-24] MEDS: FUROSEMIDE 100 MG in SODIUM CHLORIDE 0.9% 90 ML IV SCH (08:30)
[2019-06-24 08:38] LABS: Glucose,Whole Blood 158 mg/dL (75-99)
--- NOTE | 2019-06-24 09:01 | P.PN ---
Subjective Progress Note Date: 06/24/19 Principal diagnosis: Acute hypoxic and hypercapnic respiratory failure related to acute exacerbation of CHF, urinary tract infection, septic shock This is 78-year-old white female patient of Dr. Bartholomew, with past medical history of chronic atrial fibrillation on anticoagulation, diabetes mellitus, dyslipidemia, hypertension, Parkinson's disease, hypothyroidism, chronic congestive heart failure, coronary artery disease with bypass grafting, previous surgery for aortic valve replacement. Patient presented to the emergency department on 06/21/2019 with complaints of worsening dyspnea and weakness. Patient apparently has a home pulse ox monitor and her pulse ox was in the 70s and 80s. Patient was recently hospitalized in April of this year with acute gastroenteritis of unknown etiology, and patient was critically ill during that admission with evidence of acute lactic acidosis, acute kidney injury, hypotension and hypovolemic shock, and patient required intensive care admission and monitoring. Patient also developed metabolic encephalopathy, and neurological workup was negative. Patient did develop worsening ascending weakness, and there was concern for possibility of Guillain-[place] syndrome, but neurology felt it was unlikely. Patient's diarrhea gradually improved, she was opposed to have colonoscopy in the outpatient setting. Patient clinically imp roved and was eventually discharged to the [facility] for rehab therapy on 05/27/2019. Completed a course of Zosyn and Flagyl, C. diff screen was negative. During that admission patient did develop acute hypercapnic respiratory failure and generalized weakness of unknown etiology, and required BiPAP support. On 06/21/2019 patient was brought into the emergency department for evaluation of a dyspnea, and worsening weakness. Patient was recently discharged from the subacute rehab facility and was at home. Apparently she tried standing up earlier today and fell sideways, and patient apparently denied hitting injuries to her head. Denied any fever, or chills, denied any night sweats, denied chest pain. Most of the history was obtained from the chart, patient at the time of our evaluation is very difficult to arouse, there is a family member at the bedside who did provide some limited information in terms of her CODE STATUS. On 06/22/2019 we were called by the stepdown nurse taking care of the patient with concern of abnormal blood gases, that showed pO2 of 56, pCO2 of 70, and pH of 7.32. Admission blood work was negative for any evidence of leukocytosis, white blood cell count was 7.0, hemoglobin was 10.2 coagulation profile was within normal limits. Patient had evidence of acute kidney injury with a BUN of 657 and creatinine of 2.35, potassium of 6.1, and sodium of 136, BNP was 21,200, and troponin was negative 1. Patient had been oliguric, and urinalysis po sitive for signs of UTI. Patient was also hypotensive, was given a fluid bolus, and her potassium was treated with the 50% dextrose and insulin, however on this morning's labs potassium is persistently 6.2, nephrology has been consulted, Kayexalate has been given, chest x-ray shows increased density at the lung bases, blunting the costophrenic angles, central vascularity and interstitial or increased changes consistent with congestive heart failure and small pleural effusions. SHe received a dose of IV Lasix, she started making small amounts of urine, however neurologically she is increasingly more unresponsive, and subsequent blood gases showed worsening hypercapnic respiratory failure, with pH of 7.28, and pCO2 of 82, and this was done on BiPAP support with pressures of 12 and 6 and FiO2 of 30%. BiPAP settings were then changed to 16/6 and FiO2 of 30% and patient was transferred to the intensive care unit. Tatum catheter has been placed, patient being initiated on Lasix drip per nephrology. Repeat urinalysis did not show evidence of infection. Patient has been afebrile. Patient's family member states patient is a DO NOT RESUSCITATE CODE STATUS and she is able to provide proof she has a necessary paperwork at home. For now we will continue supportive treatment, and patient will be monitored closely in the intensive care unit. On 06/23/2019 patient seen in follow-up in the intensive care unit, she remains on BiPAP support with pressures of 16/6, and FiO2 of 30%, she started to open her eyes and respond better, compared to yesterday's exam, yesterday she was on Lasix drip however she became quite hypotensive and anuric, Lasix has been discontinued, and patient was initiated on Levothroid, earlier in the day she had been given some IV fluids. This morning she remains on 0.9 at 20, levo fed is at 5 mics per minute. And patient is starting to make amounts of urine in the order of 60 ML per hour, urine culture came back positive for gram-negative bacilli, final cultures pending, blood culture showed no growth, no fever or chills, we'll initiate the patient on empiric antibiotics in the form of Rocephin. Sodium is 133, potassium is 5.7, chloride is 91, CO2 is 38, B1 is 66, creatinine is 2.3, slightly improved renal profile from yesterday, proBNP was elevated at 21,200, and troponin was negative at admission. US of the kidneys showed no evidence of hydronephrosis Chest x-ray has been reviewed still showing changes compatible with CHF exacerbation hilar prominence consistent with pulmonary arterial hypertension. Hemodynamically seems to be slightly improved, no diarrhea, patient had a solid bowel movement yesterday. On 06/24/2019 patient was seen in follow-up in the intensive care unit, she is clinically much improved, she is awake and alert, she is off the BiPAP support, currently on 4 L of oxygen her pulse ox is 95-98%, afebrile, hemodynamically patient is stable, levo fed has been weaned off since yesterday, patient was restarted back on Lasix drip at 5 mg per hour, she is making urine in the order of 200-370 ML per hour. Denies any respiratory difficulty, lung sounds are essentially clear to auscultation, diminished at the bases, no component of chest pain, today's labs have been reviewed, showing no evidence of leukocytosis, was felt was 5.8, hemoglobin is 8.4, sodium is 134, potassium is 4.1, CO2 is 37, chloride is 93, renal profile is improving, BUN is 52, creatinine is 1.74, urine culture was positive for E. coli which was guerra susceptible, Procan acetone level came back slightly elevated at 0.14, and cortisol level was normal at 21. Patient is tolerating regular diet, no nausea, vomiting or diarrhea. Objective - Vital Signs Vital signs: Vital Signs Temp 97.4 F L 06/24/19 08:00 Pulse 98 06/24/19 08:15 Resp 20 06/24/19 08:15 BP 130/56 06/24/19 08:15 Pulse Ox 95 06/24/19 08:15 Intake & Output 06/23/19 06/24/19 06/24/19 18:59 06:59 18:59 Intake Total 1099.193 436.950 50 Output Total 1040 2250 350 Balance 59.193 -1813.050 -300 Weight 107.9 kg Intake: IV 275 50 Furosemide 100 mg In 55 10 Sodium Chloride 0.9% 90 ml @ 5 MG/HR 5 mls/hr IV .Q20H AMEYA Rx#:[id number] Sodium Chloride 0.9% 1, 220 40 000 ml @ 20 mls/hr IV . Q24H AMEYA Rx#:[id number] Intake, IV Titration 399.193 111.950 Amount Furosemide 100 mg In 45 5 Sodium Chloride 0.9% 90 ml @ 5 MG/HR 5 mls/hr IV .Q20H AMEYA Rx#:[id number] Norepinephrine 4 mg In 144.193 86.950 Sodium Chloride 0.9% 250 ml @ 0.05 MCG/KG/MIN 19. 717 mls/hr IV .[id number] AMEYA Rx#:[id number] Sodium Chloride 0.9% 1, 160 20 000 ml @ 20 mls/hr IV . Q24H AMEYA Rx#:[id number] Sodium Chloride 0.9% 1, 50 000 ml @ 999 mls/hr IV . Q1H1M ONE Rx#:[id number] Oral 700 50 Output: Urine 1040 2250 350 Other: Voiding Method Indwelling Catheter Indwelling Catheter # Voids 1 - Exam GENERAL EXAM: Alert and oriented 3 78-year-old white female, on 4l/min, wakes up to verbal stimuli, and tries to provide simple verbal answers HEAD: Normocephalic/atraumatic. EYES: Normal reaction of pupils, equal size. Conjunctiva pink, sclera white. NOSE: Clear with pink turbinates. THROAT: No erythema or exudates. NECK: No masses, no JVD, no thyroid enlargement, no adenopathy. CHEST: No chest wall deformity. Symmetrical expansion. LUNGS: Equal air entry with no crackles, wheeze, rhonchi or dullness. CVS: Regular rate and rhythm, normal S1 and S2, no gallops, no murmurs, no rubs ABDOMEN: Soft, nontender. No hepatosplenomegaly, normal bowel sounds, no guarding or rigidity. EXTREMITIES: No clubbing, no edema, no cyanosis, 2+ pulses and upper and lower extremities. MUSCULOSKELETAL: Muscle strength and tone normal. SPINE: No scoliosis or deformity SKIN: No rashes CENTRAL NERVOUS SYSTEM: Alert, oriented 3, and No focal deficits, tone is normal in all 4 extremities. - Labs CBC & Chem 7: 06/24/19 04:59 06/24/19 04:59 Labs: Abnormal Lab Results - Last 24 Hours (Table) 06/23/19 06/23/19 06/23/19 Range/Units 09:24 09:30 11:45 RBC (3.80-5.40) m/uL Hgb (11.4-16.0) gm/dL Hct (34.0-46.0) % MCV (80.0-100.0) fL Sodium (137-145) mmol/L Potassium 5.3 H (3.5-5.1) mmol/L Chloride (98-107) mmol/L Carbon Dioxide (22-30) mmol/L BUN (7-17) mg/dL Creatinine (0.52-1.04) mg/dL POC Glucose (mg/dL) 123 H (75-99) mg/dL Procalcitonin 0.14 H (0.02-0.09) ng/mL 06/23/19 06/23/19 06/23/19 Range/Units 16:58 19:56 23:37 RBC (3.80-5.40) m/uL Hgb (11.4-16.0) gm/dL Hct (34.0-46.0) % MCV (80.0-100.0) fL Sodium (137-145) mmol/L Potassium (3.5-5.1) mmol/L Chloride (98-107) mmol/L Carbon Dioxide (22-30) mmol/L BUN (7-17) mg/dL Creatinine (0.52-1.04) mg/dL POC Glucose (mg/dL) 122 H 174 H 129 H (75-99) mg/dL Procalcitonin (0.02-0.09) ng/mL 06/24/19 06/24/19 06/24/19 Range/Units 04:01 04:59 04:59 RBC 2.51 L (3.80-5.40) m/uL Hgb 8.4 L (11.4-16.0) gm/dL Hct 25.2 L (34.0-46.0) % MCV 100.4 H (80.0-100.0) fL Sodium 134 L (137-145) mmol/L Potassium (3.5-5.1) mmol/L Chloride 93 L (98-107) mmol/L Carbon Dioxide 37 H (22-30) mmol/L BUN 52 H (7-17) mg/dL Creatinine 1.74 H (0.52-1.04) mg/dL POC Glucose (mg/dL) 111 H (75-99) mg/dL Procalcitonin (0.02-0.09) ng/mL 06/24/19 Range/Units 08:26 RBC (3.80-5.40) m/uL Hgb (11.4-16.0) gm/dL Hct (34.0-46.0) % MCV (80.0-100.0) fL Sodium (137-145) mmol/L Potassium (3.5-5.1) mmol/L Chloride (98-107) mmol/L Carbon Dioxide (22-30) mmol/L BUN (7-17) mg/dL Creatinine (0.52-1.04) mg/dL POC Glucose (mg/dL) 158 H (75-99) mg/dL Procalcitonin (0.02-0.09) ng/mL Microbiology - Last 24 Hours (Table) 06/21/19 17:15 Urine Culture - Final Urine,Voided Escherichia coli 06/21/19 11:37 Blood Culture - Preliminary Blood No Growth after 48 hours Assessment and Plan Plan: Assessment: #1. Acute hypoxic and hypercapnic respiratory failure related to acute exacerbation of CHF, with moderately impaired left ventricle systolic function of 40-45% #2. Urinary tract infection related to E. coli which was guerra susceptible, septic shock #3. Mild periprosthetic regurgitation of the bioprosthetic aortic valve, [id number] mitral regurgitation, and moderate pulmonary hypertension of 57.4 mmHg PA systolic #4. Acute kidney injury #5. Hyperkalemia, improving #6. Diabetes mellitus #7. Recent discharge from subacute rehab following a prolonged hospitalization for severe gastroenteritis, hypovolemic shock, acute kidney injury #8. History of aortic valve disease and previous replacement #9. Secondary pulmonary hypertension #10. Chronic atrial fibrillation #11. Parkinson's disease #12. Episodes of altered mental status requiring BiPAP support for hypercapnic respiratory failure during previous admission, and neurologic workup was negative #13. Hypothyroidism #14. Hyperlipidemia #15. Type 2 diabetes #16. History of coronary artery disease and previous bypass grafting Plan: Patient is awake and alert, oriented 3, no altered mentation, she is off the BiPAP support, tolerating nasal cannula, Levophed has been weaned off, patient is diuresing, she is on Lasix drip, continue monitoring electrolytes and renal profile, which is improving on today's exam, she denies any difficulty breathing. Urine culture showed E. coli, continue with IV Rocephin. Today's chest x-ray has been reviewed showing bilateral pleural effusions. 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 Medically she is improving, she stable to go out of intensive care unit to medical surgical floor. I performed a history & physical examination of the patient and discussed their management with my nurse practitioner, Eneida Hayes. I reviewed the nurse practitioner's note and agree with the documented findings and plan of care. Lung sounds are positive for diminisheshed breath sounds. The findings and the impression was discussed with the patient. I attest to the documentation by the nurse practitioner. Time with Patient: Less than 30
--- NOTE | 2019-06-24 09:29 | P.PN ---
Subjective Patient is seen in follow-up for acute kidney injury. Renal function is improved. Creatinine 1.74. She is maintained on Lasix drip. Mentation is much improved. She is now awake and alert. Urine output in the range of 100-300 mL an hour. Vital signs are stable. General: The patient appeared well nourished and normally developed. HEENT: Head exam is unremarkable. Neck is without jugular venous distension. LUNGS: Breath sounds decreased. HEART: Rate and Rhythm are regular. First and second heart sounds normal. No murmurs, rubs or gallops. ABDOMEN: Bowel sounds present. EXTREMITITES: 2+ edema. Objective - Vital Signs Vital signs: Vital Signs Temp 97.4 F L 06/24/19 08:00 Pulse 98 06/24/19 08:15 Resp 20 06/24/19 08:15 BP 130/56 06/24/19 08:15 Pulse Ox 95 06/24/19 08:15 Intake & Output 06/23/19 06/24/19 06/24/19 18:59 06:59 18:59 Intake Total 1099.193 436.950 50 Output Total 1040 2250 350 Balance 59.193 -1813.050 -300 Weight 107.9 kg Intake: IV 275 50 Furosemide 100 mg In 55 10 Sodium Chloride 0.9% 90 ml @ 5 MG/HR 5 mls/hr IV .Q20H [facility] Rx#:[id number] Sodium Chloride 0.9% 1, 220 40 000 ml @ 20 mls/hr IV . Q24H [facility] Rx#:[id number] Intake, IV Titration 399.193 111.950 Amount Furosemide 100 mg In 45 5 Sodium Chloride 0.9% 90 ml @ 5 MG/HR 5 mls/hr IV .Q20H [facility] Rx#:[id number] Norepinephrine 4 mg In 144.193 86.950 Sodium Chloride 0.9% 250 ml @ 0.05 MCG/KG/MIN 19. 717 mls/hr IV .[id number] [facility] Rx#:[id number] Sodium Chloride 0.9% 1, 160 20 000 ml @ 20 mls/hr IV . Q24H [facility] Rx#:[id number] Sodium Chloride 0.9% 1, 50 000 ml @ 999 mls/hr IV . Q1H1M ONE Rx#:[id number] Oral 700 50 Output: Urine 1040 2250 350 Other: Voiding Method Indwelling Catheter Indwelling Catheter # Voids 1 - Labs CBC & Chem 7: 06/24/19 04:59 06/24/19 04:59 Labs: Abnormal Lab Results - Last 24 Hours (Table) 06/23/19 06/23/19 06/23/19 Range/Units 09:24 09:30 11:45 RBC (3.80-5.40) m/uL Hgb (11.4-16.0) gm/dL Hct (34.0-46.0) % MCV (80.0-100.0) fL Sodium (137-145) mmol/L Potassium 5.3 H (3.5-5.1) mmol/L Chloride (98-107) mmol/L Carbon Dioxide (22-30) mmol/L BUN (7-17) mg/dL Creatinine (0.52-1.04) mg/dL POC Glucose (mg/dL) 123 H (75-99) mg/dL Procalcitonin 0.14 H (0.02-0.09) ng/mL 06/23/19 06/23/19 06/23/19 Range/Units 16:58 19:56 23:37 RBC (3.80-5.40) m/uL Hgb (11.4-16.0) gm/dL Hct (34.0-46.0) % MCV (80.0-100.0) fL Sodium (137-145) mmol/L Potassium (3.5-5.1) mmol/L Chloride (98-107) mmol/L Carbon Dioxide (22-30) mmol/L BUN (7-17) mg/dL Creatinine (0.52-1.04) mg/dL POC Glucose (mg/dL) 122 H 174 H 129 H (75-99) mg/dL Procalcitonin (0.02-0.09) ng/mL 06/24/19 06/24/19 06/24/19 Range/Units 04:01 04:59 04:59 RBC 2.51 L (3.80-5.40) m/uL Hgb 8.4 L (11.4-16.0) gm/dL Hct 25.2 L (34.0-46.0) % MCV 100.4 H (80.0-100.0) fL Sodium 134 L (137-145) mmol/L Potassium (3.5-5.1) mmol/L Chloride 93 L (98-107) mmol/L Carbon Dioxide 37 H (22-30) mmol/L BUN 52 H (7-17) mg/dL Creatinine 1.74 H (0.52-1.04) mg/dL POC Glucose (mg/dL) 111 H (75-99) mg/dL Procalcitonin (0.02-0.09) ng/mL 06/24/19 Range/Units 08:26 RBC (3.80-5.40) m/uL Hgb (11.4-16.0) gm/dL Hct (34.0-46.0) % MCV (80.0-100.0) fL Sodium (137-145) mmol/L Potassium (3.5-5.1) mmol/L Chloride (98-107) mmol/L Carbon Dioxide (22-30) mmol/L BUN (7-17) mg/dL Creatinine (0.52-1.04) mg/dL POC Glucose (mg/dL) 158 H (75-99) mg/dL Procalcitonin (0.02-0.09) ng/mL Microbiology - Last 24 Hours (Table) 06/21/19 17:15 Urine Culture - Final Urine,Voided Escherichia coli 06/21/19 11:37 Blood Culture - Preliminary Blood No Growth after 48 hours Assessment and Plan Plan: Assessment: 1. Acute kidney injury secondary to ATN secondary to hypotension and cardiorenal syndrome. Renal function improving. Creatinine 1.74 today. No evidence of urinary retention. No evidence of hydronephrosis noted on kidney ultrasound. 2. Hyperkalemia secondary to acute kidney injury and potassium supplementation. Improved. Improved. 3. Acute mixed hypercapnic and hypoxic respiratory failure. Now off BiPAP. 4. Diabetes mellitus. 5. Volume overload. Improving with diuresis. 6. Acute on chronic systolic CHF with ejection fraction of 40-45% with mild to moderate mitral regurgitation and moderate pulmonary hypertension. 7. UTI with urine culture positive for E. coli. Maintained on antibiotics. Plan: Maintain midodrine. Hold if systolic blood pressure greater than 120. Maintain Lasix drip. Continue to monitor renal function and urine output.
--- NOTE | 2019-06-24 09:34 | XR ---
EXAMINATION TYPE: XR chest 1V portable DATE OF EXAM: 06/24/2019 COMPARISON: 06/06/2019 HISTORY: Shortness of breath FINDINGS: There are bilateral pleural effusions with cardiomegaly and bibasilar infiltrate. There is a diffuse interstitial pattern. Surgical changes noted. IMPRESSION: 1. Stable diffuse pleural-parenchymal changes most typical of CHF.
[2019-06-24] MEDS: AMIODARONE 200 MG TAB PO SCH (09:55)
[2019-06-24] MEDS: APIXABAN 2.5 MG TABLET PO SCH (09:57)
[2019-06-24] MEDS: ASPIRIN 81 MG PO SCH (09:58)
[2019-06-24] MEDS: CARBIDOPA-LEVODOPA 25-100 MG 1 EACH TAB PO SCH ×3 (10:02→17:25)
[2019-06-24] MEDS: METOLAZONE 5 MG TAB PO SCH (10:02)
[2019-06-24] MEDS: METOPROLOL TARTRATE 25 MG TAB PO SCH (10:03)
[2019-06-24] MEDS: PANTOPRAZOLE 40 MG TABLET PO SCH (10:04)
[2019-06-24 11:39] LABS: Glucose,Whole Blood 233 mg/dL (75-99)
--- NOTE | 2019-06-24 15:17 | P.PN ---
Subjective Progress Note Date: 06/24/19 Principal diagnosis: CHF exacerbation Patient was seen and examined. No acute events overnight. Currently off of pressors. Continues to be on Lasix drip at 5. Chest x-ray showing concerns of CHF. Patient reports significant improvement in her breathing since admission. She denies any chest pain, shortness of breath or palpitations. No nausea or vomiting. No fever or chills. Objective - Vital Signs Vital signs: Vital Signs Temp 98.1 F 06/24/19 12:00 Pulse 67 06/24/19 11:00 Resp 16 06/24/19 12:00 BP 141/56 06/24/19 12:00 Pulse Ox 97 06/24/19 12:00 Intake & Output 06/23/19 06/24/19 06/24/19 18:59 06:59 18:59 Intake Total 1099.193 436.950 250 Output Total 1040 2250 1050 Balance 59.193 -1813.050 -800 Weight 107.9 kg Intake: IV 275 150 Furosemide 100 mg In 55 30 Sodium Chloride 0.9% 90 ml @ 5 MG/HR 5 mls/hr IV .Q20H [facility] Rx#:[id number] Sodium Chloride 0.9% 1, 220 120 000 ml @ 20 mls/hr IV . Q24H [facility] Rx#:[id number] Intake, IV Titration 399.193 111.950 100 Amount Furosemide 100 mg In 45 5 100 Sodium Chloride 0.9% 90 ml @ 5 MG/HR 5 mls/hr IV .Q20H [facility] Rx#:[id number] Norepinephrine 4 mg In 144.193 86.950 Sodium Chloride 0.9% 250 ml @ 0.05 MCG/KG/MIN 19. 717 mls/hr IV .[id number] [facility] Rx#:[id number] Sodium Chloride 0.9% 1, 160 20 000 ml @ 20 mls/hr IV . Q24H [facility] Rx#:[id number] Sodium Chloride 0.9% 1, 50 000 ml @ 999 mls/hr IV . Q1H1M ONE Rx#:[id number] Oral 700 50 Output: Urine 1040 2250 1050 Other: Voiding Method Indwelling Catheter Indwelling Catheter Indwelling Catheter # Voids 1 - Exam General: [non toxic], [no distress], [appears at stated age] Derm: [warm], [dry] Head: [atraumatic], [normocephalic], [symmetric] Eyes: [EOMI], [no lid lag], [anicteric sclera] Mouth: [no lip lesion], [mucus membranes moist] Cardiovascular: [S1S2 reg], [no murmur], [positive DP pulse bilateral], Lungs: [Decreased breath sounds bilateral], [no rhonchi, no rales] , [no accessory muscle use] Abdominal: [soft], [ nontender to palpation], [no guarding], [no appreciable organomegaly] Ext: [no gross muscle atrophy], [2+ lower extremity edema], [no contractures] Neuro: [no focal neuro deficits] Psych: [Alert], [oriented], [appropriate affect] - Labs CBC & Chem 7: 06/24/19 04:59 06/24/19 04:59 Labs: Abnormal Lab Results - Last 24 Hours (Table) 06/23/19 06/23/19 06/23/19 Range/Units 09:24 16:58 19:56 RBC (3.80-5.40) m/uL Hgb (11.4-16.0) gm/dL Hct (34.0-46.0) % MCV (80.0-100.0) fL Sodium (137-145) mmol/L Chloride (98-107) mmol/L Carbon Dioxide (22-30) mmol/L BUN (7-17) mg/dL Creatinine (0.52-1.04) mg/dL POC Glucose (mg/dL) 122 H 174 H (75-99) mg/dL Procalcitonin 0.14 H (0.02-0.09) ng/mL 06/23/19 06/24/19 06/24/19 Range/Units 23:37 04:01 04:59 RBC 2.51 L (3.80-5.40) m/uL Hgb 8.4 L (11.4-16.0) gm/dL Hct 25.2 L (34.0-46.0) % MCV 100.4 H (80.0-100.0) fL Sodium (137-145) mmol/L Chloride (98-107) mmol/L Carbon Dioxide (22-30) mmol/L BUN (7-17) mg/dL Creatinine (0.52-1.04) mg/dL POC Glucose (mg/dL) 129 H 111 H (75-99) mg/dL Procalcitonin (0.02-0.09) ng/mL 06/24/19 06/24/19 06/24/19 Range/Units 04:59 08:26 11:27 RBC (3.80-5.40) m/uL Hgb (11.4-16.0) gm/dL Hct (34.0-46.0) % MCV (80.0-100.0) fL Sodium 134 L (137-145) mmol/L Chloride 93 L (98-107) mmol/L Carbon Dioxide 37 H (22-30) mmol/L BUN 52 H (7-17) mg/dL Creatinine 1.74 H (0.52-1.04) mg/dL POC Glucose (mg/dL) 158 H 233 H (75-99) mg/dL Procalcitonin (0.02-0.09) ng/mL Microbiology - Last 24 Hours (Table) 06/21/19 17:15 Urine Culture - Final Urine,Voided Escherichia coli 06/21/19 11:37 Blood Culture - Preliminary Blood No Growth after 48 hours Assessment and Plan Assessment: Acute hypoxic and hypercapnic respiratory failure likely due to CHF exacerbation Septic shock secondary to UTI, off Levophed Acute kidney injury from hypotension Type 2 diabetes mellitus with hyperglycemia Anemia Chronic conditions: Hypothyroidism, CAD post CABG and bioprosthetic aVR, chronic A. fib As seen on chest x-ray. BNP 21,200, Echocardiogram shows EF 40-45%. Plans: Continue Lasix drip at 5 mg per hour. Repeat chest x-ray in the morning. Continue beta vale. Strict intake and output take. Potassium greater than 4 magnesium greater than 2. Daily weights. Follow cardiology recommendations. Levophed discontinued as BP has been maintaining. Urine culture shows E. coli. Blood culture negative at 48 hours. Plans: Continue Rocephin for a total of 7 days. Follow final blood cultures. Creatinine 1.74 today. Plans: Continue Metolazone by mouth. Midodrine scheduled to maintain SBP at 120. Strict urine output. Avoid nephrotoxins. Follow nephrology recommendations. [id number] glucose 233. Plans: Insulin sliding scale. Regular Accu-Cheks. Hypoglycemic precautions. Hemoglobin 8.4, stable. Plans: Transfuse if hemoglobin less than 7. [Patient continued on Lasix drip. BP is improved, pressors discontinued. She is pending clinical improvement. We'll discuss with daughter regarding palliative care. Likely DC in 2-3 days.]
[2019-06-24 17:11] LABS: Glucose,Whole Blood 291 mg/dL (75-99)
--- NOTE | 2019-06-24 17:28 | PN ---
PROGRESS NOTE CARDIOLOGY FOLLOW-UP NOTE: Violet is a 78-year-old lady who was admitted to the intensive care unit with complex and multiple medical problems. She has known CAD and had prior bypass surgery and aortic valve replacement, has chronic renal insufficiency and chronic persistent atrial fibrillation. She has had cardioversion in the past. This morning she remains in what appears like an atrial flutter with controlled ventricular rate. Her urine output is improving. Bradycardia has resolved and she remains in atrial flutter with controlled ventricular rate. The patient is on IV Lasix drip as per Nephrology. PHYSICAL EXAMINATION: Heart rate is 86 beats per minute. Blood pressure is 120/52. Respiratory rate is 18. Chest exam reveals diminished air entry at the bases. Heart exam reveals first and second heart sounds; no gallop; systolic murmur at the apex. Abdomen is soft. Examination of extremities revealed mild edema. Peripheral pulses are felt. LABS: Labs show a hemoglobin of 8.4. Platelet count is 206. Potassium is 4.1. BUN is 52, creatinine 1.74. MEDICATIONS: The patient is currently on: 1. Cordarone 200 daily. 2. Eliquis 2.5 b.i.d. 3. Aspirin. 4. Lipitor. 5. Sinemet. 6. Insulin. 7. Synthroid. 8. Zaroxolyn. 9. Lopressor. 10.Protonix. 11.Narcan. ASSESSMENT: 1. Chronic persistent atrial fibrillation with controlled ventricular rate. 2. Chronic renal failure. 3. Diabetes. 4. Coronary artery disease, status post coronary artery bypass grafting. 5. Status post AVR. PLAN: As the patient remains with a controlled ventricular rate and remains in atrial flutter, I am going to stop the Cordarone at this time, continue the Lopressor for rate control. MMODL / IJN: [id number] /
[2019-06-24 20:29] LABS: Glucose,Whole Blood 272 mg/dL (75-99)
[2019-06-24 21:37] LABS: Glucose,Whole Blood 325 mg/dL (75-99)
[2019-06-25] MEDS: APIXABAN 2.5 MG TABLET PO SCH ×3 (00:06→21:16)
[2019-06-25] MEDS: METOPROLOL TARTRATE 25 MG TAB PO SCH (00:07)
[2019-06-25] MEDS: CARBIDOPA-LEVODOPA 25-100 MG 1 EACH TAB PO SCH ×5 (00:07→21:15)
[2019-06-25] MEDS: ATORVASTATIN 10 MG TAB PO SCH ×2 (00:07→21:16)
[2019-06-25 00:10] LABS: Glucose,Whole Blood 256 mg/dL (75-99)
[2019-06-25] MEDS: FUROSEMIDE 100 MG in SODIUM CHLORIDE 0.9% 90 ML IV SCH ×2 (03:36→15:32)
[2019-06-25 04:21] LABS: Glucose,Whole Blood 253 mg/dL (75-99)
[2019-06-25] MEDS ORDERED: DILTIAZEM DRIP BOLUS FROM BAG 1 MG SOLN IV ONE (05:23)
[2019-06-25] MEDS ORDERED: DILTIAZEM 125 MG in SODIUM CHLORIDE 0.9% 100 ML IV SCH (05:30)
[2019-06-25 05:44] LABS: HCT 27.8 % (34.0-46.0); HGB 8.9 gm/dL (11.4-16.0); MCH 32.3 pg (25.0-35.0); MCV 101.2 fL (80.0-100.0); Macrocytosis Slight; Mean Platelet Volume 6.7; Platelet Count 234 k/uL (150-450); RBC 2.75 m/uL (3.80-5.40); RDW 14.3 % (11.5-15.5); WBC 6.3 k/uL (3.8-10.6)
[2019-06-25 06:01] LABS: Potassium 4.2 mmol/L (3.5-5.1)
[2019-06-25] MEDS: LEVOTHYROXINE 112 MCG TAB PO SCH (06:45)
[2019-06-25] MEDS: INSULIN ASPART (NovoLOG) 100 UNIT/ML VIAL SQ SCH ×4 (06:45→21:16)
[2019-06-25 06:47] LABS: Glucose,Whole Blood 194 mg/dL (75-99)
--- NOTE | 2019-06-25 08:18 | XR ---
EXAMINATION TYPE: XR chest 1V portable DATE OF EXAM: 06/25/2019 COMPARISON: 06/24/2019 HISTORY: Shortness of breath TECHNIQUE: Single frontal view of the chest is obtained. FINDINGS: There are bilateral pleural effusions with cardiomegaly and bibasilar infiltrate. There is a diffuse interstitial pattern. Surgical changes noted. IMPRESSION: 1. Stable diffuse pleural-parenchymal changes most typical of CHF.
--- NOTE | 2019-06-25 08:32 | P.PN ---
Subjective Patient is seen in follow-up for acute kidney injury. Renal function is improved. Creatinine 1.63. She is maintained on Lasix drip. Urine output 50- 100 mL an hour. Currently on BiPAP. Vital signs are stable. General: The patient appeared well nourished and normally developed. HEENT: Head exam is unremarkable. Neck is without jugular venous distension. LUNGS: Breath sounds decreased. HEART: Rate and Rhythm are regular. First and second heart sounds normal. No murmurs, rubs or gallops. ABDOMEN: Bowel sounds present. EXTREMITITES: 2+ edema. Objective - Vital Signs Vital signs: Vital Signs Temp 96.6 F L 06/25/19 04:00 Pulse 62 06/25/19 04:00 Resp 18 06/25/19 04:00 BP 120/50 06/25/19 04:00 Pulse Ox 95 06/25/19 07:33 Intake & Output 06/24/19 06/25/19 06/25/19 18:59 06:59 18:59 Intake Total 350 265.5 Output Total 1400 1060 Balance -1050 -794.5 Weight 103.2 kg Intake: IV 250 170 Furosemide 100 mg In 50 Sodium Chloride 0.9% 90 ml @ 5 MG/HR 5 mls/hr IV .Q20H [facility] Rx#:[id number] Sodium Chloride 0.9% 1, 200 170 000 ml @ 20 mls/hr IV . Q24H [facility] Rx#:[id number] Intake, IV Titration 100 95.5 Amount Furosemide 100 mg In 100 95.5 Sodium Chloride 0.9% 90 ml @ 5 MG/HR 5 mls/hr IV .Q20H [facility] Rx#:[id number] Output: Urine 1400 1060 Other: Voiding Method Indwelling Catheter Indwelling Catheter - Labs CBC & Chem 7: 06/25/19 04:52 06/25/19 04:52 Labs: Abnormal Lab Results - Last 24 Hours (Table) 06/24/19 06/24/19 06/24/19 Range/Units 08:26 11:27 16:59 RBC (3.80-5.40) m/uL Hgb (11.4-16.0) gm/dL Hct (34.0-46.0) % MCV (80.0-100.0) fL Sodium (137-145) mmol/L Chloride (98-107) mmol/L Carbon Dioxide (22-30) mmol/L BUN (7-17) mg/dL Creatinine (0.52-1.04) mg/dL Glucose (74-99) mg/dL POC Glucose (mg/dL) 158 H 233 H 291 H (75-99) mg/dL 06/24/19 06/24/19 06/24/19 Range/Units 20:17 21:26 23:59 RBC (3.80-5.40) m/uL Hgb (11.4-16.0) gm/dL Hct (34.0-46.0) % MCV (80.0-100.0) fL Sodium (137-145) mmol/L Chloride (98-107) mmol/L Carbon Dioxide (22-30) mmol/L BUN (7-17) mg/dL Creatinine (0.52-1.04) mg/dL Glucose (74-99) mg/dL POC Glucose (mg/dL) 272 H 325 H 256 H (75-99) mg/dL 06/25/19 06/25/19 06/25/19 Range/Units 04:10 04:52 04:52 RBC 2.75 L (3.80-5.40) m/uL Hgb 8.9 L (11.4-16.0) gm/dL Hct 27.8 L (34.0-46.0) % MCV 101.2 H (80.0-100.0) fL Sodium 136 L (137-145) mmol/L Chloride 90 L (98-107) mmol/L Carbon Dioxide 39 H (22-30) mmol/L BUN 51 H (7-17) mg/dL Creatinine 1.67 H (0.52-1.04) mg/dL Glucose 178 H (74-99) mg/dL POC Glucose (mg/dL) 253 H (75-99) mg/dL 06/25/19 Range/Units 06:36 RBC (3.80-5.40) m/uL Hgb (11.4-16.0) gm/dL Hct (34.0-46.0) % MCV (80.0-100.0) fL Sodium (137-145) mmol/L Chloride (98-107) mmol/L Carbon Dioxide (22-30) mmol/L BUN (7-17) mg/dL Creatinine (0.52-1.04) mg/dL Glucose (74-99) mg/dL POC Glucose (mg/dL) 194 H (75-99) mg/dL Microbiology - Last 24 Hours (Table) 06/21/19 11:37 Blood Culture - Preliminary Blood No Growth after 72 hours Assessment and Plan Plan: Assessment: 1. Acute kidney injury secondary to ATN secondary to hypotension and cardiorenal syndrome. Renal function improving. Creatinine 1.67 today. No evidence of urinary retention. No evidence of hydronephrosis noted on kidney ultrasound. 2. Hyperkalemia secondary to acute kidney injury and potassium supplementation. Improved. Improved. 3. Acute mixed hypercapnic and hypoxic respiratory failure. Currently on BiPAP. 4. Diabetes mellitus. 5. Volume overload. Improving with diuresis. 6. Acute on chronic systolic CHF with ejection fraction of 40-45% with mild to moderate mitral regurgitation and moderate pulmonary hypertension. 7. UTI with urine culture positive for E. coli. Maintained on antibiotics. Plan: Maintain midodrine. Hold if systolic blood pressure greater than 120. Maintain Lasix drip - increased to 10 mL an hour. Continue to monitor renal function and urine output.
[2019-06-25] MEDS: ASPIRIN 81 MG PO SCH (08:43)
[2019-06-25] MEDS: MIDODRINE 5 MG TAB PO SCH ×3 (08:43→17:24)
[2019-06-25] MEDS: PANTOPRAZOLE 40 MG TABLET PO SCH (08:43)
[2019-06-25] MEDS: METOLAZONE 5 MG TAB PO SCH (08:44)
[2019-06-25] MEDS: METOPROLOL TARTRATE 12.5 MG TAB PO SCH ×2 (08:44→21:18)
--- NOTE | 2019-06-25 08:48 | P.PN ---
Subjective Progress Note Date: 06/25/19 Principal diagnosis: Acute hypoxic and hypercapnic respiratory failure related to acute exacerbation of CHF, urinary tract infection, septic shock This is 78-year-old white female patient of Dr. Bartholomew, with past medical history of chronic atrial fibrillation on anticoagulation, diabetes mellitus, dyslipidemia, hypertension, Parkinson's disease, hypothyroidism, chronic congestive heart failure, coronary artery disease with bypass grafting, previous surgery for aortic valve replacement. Patient presented to the emergency department on 06/21/2019 with complaints of worsening dyspnea and weakness. Patient apparently has a home pulse ox monitor and her pulse ox was in the 70s and 80s. Patient was recently hospitalized in April of this year with acute gastroenteritis of unknown etiology, and patient was critically ill during that admission with evidence of acute lactic acidosis, acute kidney injury, hypotension and hypovolemic shock, and patient required intensive care admission and monitoring. Patient also developed metabolic encephalopathy, and neurological workup was negative. Patient did develop worsening ascending weakness, and there was concern for possibility of Guillain-Vergas syndrome, but neurology felt it was unlikely. Patient's diarrhea gradually improved, she was opposed to have colonoscopy in the outpatient setting. Patient clinically imp roved and was eventually discharged to the [facility] for rehab therapy on 05/27/2019. Completed a course of Zosyn and Flagyl, C. diff screen was negative. During that admission patient did develop acute hypercapnic respiratory failure and generalized weakness of unknown etiology, and required BiPAP support. On 06/21/2019 patient was brought into the emergency department for evaluation of a dyspnea, and worsening weakness. Patient was recently discharged from the subacute rehab facility and was at home. Apparently she tried standing up earlier today and fell sideways, and patient apparently denied hitting injuries to her head. Denied any fever, or chills, denied any night sweats, denied chest pain. Most of the history was obtained from the chart, patient at the time of our evaluation is very difficult to arouse, there is a family member at the bedside who did provide some limited information in terms of her CODE STATUS. On 06/22/2019 we were called by the stepdown nurse taking care of the patient with concern of abnormal blood gases, that showed pO2 of 56, pCO2 of 70, and pH of 7.32. Admission blood work was negative for any evidence of leukocytosis, white blood cell count was 7.0, hemoglobin was 10.2 coagulation profile was within normal limits. Patient had evidence of acute kidney injury with a BUN of 657 and creatinine of 2.35, potassium of 6.1, and sodium of 136, BNP was 21,200, and troponin was negative 1. Patient had been oliguric, and urinalysis po sitive for signs of UTI. Patient was also hypotensive, was given a fluid bolus, and her potassium was treated with the 50% dextrose and insulin, however on this morning's labs potassium is persistently 6.2, nephrology has been consulted, Kayexalate has been given, chest x-ray shows increased density at the lung bases, blunting the costophrenic angles, central vascularity and interstitial or increased changes consistent with congestive heart failure and small pleural effusions. SHe received a dose of IV Lasix, she started making small amounts of urine, however neurologically she is increasingly more unresponsive, and subsequent blood gases showed worsening hypercapnic respiratory failure, with pH of 7.28, and pCO2 of 82, and this was done on BiPAP support with pressures of 12 and 6 and FiO2 of 30%. BiPAP settings were then changed to 16/6 and FiO2 of 30% and patient was transferred to the intensive care unit. Tatum catheter has been placed, patient being initiated on Lasix drip per nephrology. Repeat urinalysis did not show evidence of infection. Patient has been afebrile. Patient's family member states patient is a DO NOT RESUSCITATE CODE STATUS and she is able to provide proof she has a necessary paperwork at home. For now we will continue supportive treatment, and patient will be monitored closely in the intensive care unit. On 06/23/2019 patient seen in follow-up in the intensive care unit, she remains on BiPAP support with pressures of 16/6, and FiO2 of 30%, she started to open her eyes and respond better, compared to yesterday's exam, yesterday she was on Lasix drip however she became quite hypotensive and anuric, Lasix has been discontinued, and patient was initiated on Levothroid, earlier in the day she had been given some IV fluids. This morning she remains on 0.9 at 20, levo fed is at 5 mics per minute. And patient is starting to make amounts of urine in the order of 60 ML per hour, urine culture came back positive for gram-negative bacilli, final cultures pending, blood culture showed no growth, no fever or chills, we'll initiate the patient on empiric antibiotics in the form of Rocephin. Sodium is 133, potassium is 5.7, chloride is 91, CO2 is 38, B1 is 66, creatinine is 2.3, slightly improved renal profile from yesterday, proBNP was elevated at 21,200, and troponin was negative at admission. US of the kidneys showed no evidence of hydronephrosis Chest x-ray has been reviewed still showing changes compatible with CHF exacerbation hilar prominence consistent with pulmonary arterial hypertension. Hemodynamically seems to be slightly improved, no diarrhea, patient had a solid bowel movement yesterday. On 06/24/2019 patient was seen in follow-up in the intensive care unit, she is clinically much improved, she is awake and alert, she is off the BiPAP support, currently on 4 L of oxygen her pulse ox is 95-98%, afebrile, hemodynamically patient is stable, levo fed has been weaned off since yesterday, patient was restarted back on Lasix drip at 5 mg per hour, she is making urine in the order of 200-370 ML per hour. Denies any respiratory difficulty, lung sounds are essentially clear to auscultation, diminished at the bases, no component of chest pain, today's labs have been reviewed, showing no evidence of leukocytosis, was felt was 5.8, hemoglobin is 8.4, sodium is 134, potassium is 4.1, CO2 is 37, chloride is 93, renal profile is improving, BUN is 52, creatinine is 1.74, urine culture was positive for E. coli which was guerra susceptible, Procan acetone level came back slightly elevated at 0.14, and cortisol level was normal at 21. Patient is tolerating regular diet, no nausea, vomiting or diarrhea. On 06/25/2019 patient seen in follow-up in the intensive care unit, she is awake and alert, she is on BiPAP support, with pressures of 16 and 6, and FiO2 of 40%, she is oriented 3, no altered mentation, answering questions appropriately, denies any respiratory distress. We will switch her to nasal cannula this morning, yesterday patient tolerated nasal cannula trials well, was placed on BiPAP support overnight, she is afebrile, she is on Rocephin for empiric antibiotic coverage evidence of E. coli infection in the urine. Blood cultures have been negative. Today's chest x-ray has been reviewed showing stable diffuse pleural parenchymal changes pleural effusions bilaterally, and bibasilar infiltrates, and diffuse interstitial pattern, changes compatible with CHF. Patient remains on Lasix drip at 10 mg per hour, 0.9 normal saline at a rate of 20 ML per hour. Today's labs have been reviewed. Blood blood cell count 6.3, hemoglobin is 8.9, sodium is 136, potassium is 4.2, chloride is 90, CO2 is 39, BUN is 51 and creatinine is 1.67, renal profile slightly improved. Patient is in negative fluid balance, her weight is down by 6.7 kg last 24 hours, patient has plus lower extremity edema on physical examination, lung sounds are clear Objective - Vital Signs Vital signs: Vital Signs Temp 96.6 F L 06/25/19 04:00 Pulse 62 06/25/19 04:00 Resp 18 06/25/19 04:00 BP 120/50 06/25/19 04:00 Pulse Ox 95 06/25/19 07:33 Intake & Output 06/24/19 06/25/19 06/25/19 18:59 06:59 18:59 Intake Total 350 265.5 Output Total 1400 1060 Balance -1050 -794.5 Weight 103.2 kg Intake: IV 250 170 Furosemide 100 mg In 50 Sodium Chloride 0.9% 90 ml @ 5 MG/HR 5 mls/hr IV .Q20H AMEYA Rx#:[id number] Sodium Chloride 0.9% 1, 200 170 000 ml @ 20 mls/hr IV . Q24H [facility]EYA Rx#:[id number] Intake, IV Titration 100 95.5 Amount Furosemide 100 mg In 100 95.5 Sodium Chloride 0.9% 90 ml @ 5 MG/HR 5 mls/hr IV .Q20H AMEYA Rx#:[id number] Output: Urine 1400 1060 Other: Voiding Method Indwelling Catheter Indwelling Catheter - Exam GENERAL EXAM: Alert and oriented 3 78-year-old white female, BiPAP support with pressures of 16/6, and FiO2 40% wakes up to verbal stimuli, and tries to provide simple verbal answers HEAD: Normocephalic/atraumatic. EYES: Normal reaction of pupils, equal size. Conjunctiva pink, sclera white. NOSE: Clear with pink turbinates. THROAT: No erythema or exudates. NECK: No masses, no JVD, no thyroid enlargement, no adenopathy. CHEST: No chest wall deformity. Symmetrical expansion. LUNGS: Equal air entry with no crackles, wheeze, rhonchi or dullness. CVS: Regular rate and rhythm, normal S1 and S2, no gallops, no murmurs, no rubs ABDOMEN: Soft, nontender. No hepatosplenomegaly, normal bowel sounds, no guarding or rigidity. EXTREMITIES: No clubbing, no edema, no cyanosis, 2+ pulses and upper and lower extremities. MUSCULOSKELETAL: Muscle strength and tone normal. SPINE: No scoliosis or deformity SKIN: No rashes CENTRAL NERVOUS SYSTEM: Alert, oriented 3, and No focal deficits, tone is normal in all 4 extremities. - Labs CBC & Chem 7: 06/25/19 04:52 06/25/19 04:52 Labs: Abnormal Lab Results - Last 24 Hours (Table) 06/24/19 06/24/19 06/24/19 Range/Units 11:27 16:59 20:17 RBC (3.80-5.40) m/uL Hgb (11.4-16.0) gm/dL Hct (34.0-46.0) % MCV (80.0-100.0) fL Sodium (137-145) mmol/L Chloride (98-107) mmol/L Carbon Dioxide (22-30) mmol/L BUN (7-17) mg/dL Creatinine (0.52-1.04) mg/dL Glucose (74-99) mg/dL POC Glucose (mg/dL) 233 H 291 H 272 H (75-99) mg/dL 06/24/19 06/24/19 06/25/19 Range/Units 21:26 23:59 04:10 RBC (3.80-5.40) m/uL Hgb (11.4-16.0) gm/dL Hct (34.0-46.0) % MCV (80.0-100.0) fL Sodium (137-145) mmol/L Chloride (98-107) mmol/L Carbon Dioxide (22-30) mmol/L BUN (7-17) mg/dL Creatinine (0.52-1.04) mg/dL Glucose (74-99) mg/dL POC Glucose (mg/dL) 325 H 256 H 253 H (75-99) mg/dL 06/25/19 06/25/19 06/25/19 Range/Units 04:52 04:52 06:36 RBC 2.75 L (3.80-5.40) m/uL Hgb 8.9 L (11.4-16.0) gm/dL Hct 27.8 L (34.0-46.0) % MCV 101.2 H (80.0-100.0) fL Sodium 136 L (137-145) mmol/L Chloride 90 L (98-107) mmol/L Carbon Dioxide 39 H (22-30) mmol/L BUN 51 H (7-17) mg/dL Creatinine 1.67 H (0.52-1.04) mg/dL Glucose 178 H (74-99) mg/dL POC Glucose (mg/dL) 194 H (75-99) mg/dL Microbiology - Last 24 Hours (Table) 06/21/19 11:37 Blood Culture - Preliminary Blood No Growth after 72 hours Assessment and Plan Plan: Assessment: #1. Acute hypoxic and hypercapnic respiratory failure related to acute exacerbation of CHF, with moderately impaired left ventricle systolic function of 40-45% #2. Urinary tract infection related to E. coli which was guerra susceptible, septic shock #3. Mild periprosthetic regurgitation of the bioprosthetic aortic valve, [id number] mitral regurgitation, and moderate pulmonary hypertension of 57.4 mmHg PA systolic #4. Acute kidney injury #5. Hyperkalemia, improving #6. Diabetes mellitus #7. Recent discharge from subacute rehab following a prolonged hospitalization for severe gastroenteritis, hypovolemic shock, acute kidney injury #8. History of aortic valve disease and previous replacement #9. Secondary pulmonary hypertension #10. Chronic atrial fibrillation #11. Parkinson's disease #12. Episodes of altered mental status requiring BiPAP support for hypercapnic respiratory failure during previous admission, and neurologic workup was negative #13. Hypothyroidism #14. Hyperlipidemia #15. Type 2 diabetes #16. History of coronary artery disease and previous bypass grafting Plan: Continue current medical treatment, continue Lasix drip, renal profile slightly improved, patient is in negative fluid balance, still has significant lower extremity edema, but overall fluid status is improving, patient is awake and alert, she was on BiPAP support overnight, we will give her a trial of nasal cannula. No fever or chills, continue with Rocephin for antibiotic coverage. We'll continue to follow. She is awaiting a bed on the medical surgical floor. Complaints of difficulty breathing or chest pain, no fever or chills, I performed a history & physical examination of the patient and discussed their management with my nurse practitioner, Eneida Hayes. I reviewed the nurse practitioner's note and agree with the documented findings and plan of care. Lung sounds are positive for diminisheshed breath sounds. The findings and the impression was discussed with the patient. I attest to the documentation by the nurse practitioner. Time with Patient: Less than 30
--- NOTE | 2019-06-25 09:06 | PN ---
PROGRESS NOTE Violet is a 78-year-old lady with history of coronary artery disease, status post CABG, status post aortic valve replacement, chronic persistent atrial fibrillation, who is admitted to the hospital with renal failure and has had episodes of hypotension and bradycardia. Her urine output has improved on Lasix drip and the creatinine and BUN are improving. This morning, she remains in what appeared like an atrial flutter with controlled ventricular rate. Patient is hemodynamically stable and is currently on a BiPAP. PHYSICAL EXAM: Heart rate is 60 beats per minute. Blood pressure is 120/50, respiratory rate is 18. Chest exam reveals diminished air entry at the bases. Heart exam reveals first and second heart sounds, and ejection systolic murmur in the aortic and a systolic murmur at the left lower sternal border. Abdomen is soft. Exam of extremities reveals 1+ edema. Peripheral pulses are felt. LABS: Show a hemoglobin of 8.9, platelet count is 234, potassium is 4.2, creatinine is 1.6. It started off a 2.2. An echocardiogram on this admission revealed an ejection fraction of 40% to 45% with mild stenosis and mild regurgitation of the bioprosthetic valve with mild to moderate mitral regurgitation and moderate pulmonary hypertension. ASSESSMENT: 1. Persistent atrial fibrillation/atypical flutter with controlled ventricular rate. 2. Chronic renal failure. 3. Status post aortic valve replacement. 4. Coronary artery disease, status post coronary artery bypass graftingt. 5. Chronic systolic heart failure. PLAN: Patient will continue current medications including Lasix drip, Eliquis, aspirin, Lipitor and midodrine. I am going to decrease the dose of metoprolol to 12.5 mg b.i.d. as patient remains bradycardic. MMODL / IJN: [id number] /
--- NOTE | 2019-06-25 12:12 | CDI ---
Documentation Clarification Form Date: 06/25/2019 11:33:03 AM From: Belkys Estrada RN, CCDS Admit Date: 06/21/2019 2:28:00 PM Patient Name: Violet Thorne Visit Number: [id number] Discharge Date: ATTENTION: The Clinical Documentation Specialists (CDI) and [facility] Coding Staff appreciate your assistance in clarifying documentation. Please respond to the clarification below the line at the bottom and electronically sign. The CDI & [facility] Coding staff will review the response and follow-up if needed. Please note: Queries are made part of the Legal Health Record. If you have any questions, please contact the author of this message via ITS. Dr. Addy Betts Patient was admitted with acute kidney injury and hyperkalemia 06/21/19 Cardiology Consult () Acute on chronic kidney failure 06/22/19 Nephrology consult: Acute kidney injury secondary to ATN secondary to hypotension and cardiorenal syndrome. History/Risk Factors: Diabetes Mellitus, Hypertension, Heart failure Clinical Indicators: 78-year-old female presents with dyspnea and worsening weakness. VS on admission 98/51 75 18 92 % 5/L NC, 131/44 53 20 94 % 5/L NC On admission: BUN 56, CR 2.12 GFR 22 Current 06/25/19: BUN 51 CR1.67 GFR 29 Patients Baseline: BUN 18 CR 1.0 (per Dr. Liya andino note on 06/23/19) Treatment: Continue to monitor renal function and urine output. Lasix drip Midodrine PO TID In order to capture the severity of condition, please clarify if the condition signifies: CKD Stage 1 (GFR > 90) CKD Stage 2 (GFR 60-89) CKD Stage 3 (GFR 30-59) CKD Stage 4 (GFR 15-29) CKD Stage 5 (GFR <15) ESRD Other, please specify Unable to determine (Last Revision: November 2017) AKI, unable to determine CKD stage MTDD
[2019-06-25 12:27] LABS: Glucose,Whole Blood 163 mg/dL (75-99)
--- NOTE | 2019-06-25 12:28 | P.PN ---
Subjective Progress Note Date: 06/25/19 Principal diagnosis: CHF exacerbation Patient was seen and examined. No acute events overnight. Pressors discontinued since yesterday. Lasix increased to 10. Chest x-ray showing concerns of CHF. Patient reports significant improvement in her breathing since admission. Overnight, patient had worsening breathing and somnolence requiring BiPAP. She denies any chest pain, shortness of breath or palpitations. No nausea or vomiting. No fever or chills. Objective - Vital Signs Vital signs: Vital Signs Temp 97.7 F 06/25/19 08:00 Pulse 65 06/25/19 08:00 Resp 18 06/25/19 08:00 BP 107/47 06/25/19 08:00 Pulse Ox 95 06/25/19 08:00 Intake & Output 06/24/19 06/25/19 06/25/19 18:59 06:59 18:59 Intake Total 350 265.5 80 Output Total 1400 1060 445 Balance -1050 -794.5 -365 Weight 103.2 kg 103.2 kg Intake: IV 250 170 80 Furosemide 100 mg In 50 20 Sodium Chloride 0.9% 90 ml @ 10 MG/HR 10 mls/hr IV .Q10H [facility]EYA Rx#: [id number] Sodium Chloride 0.9% 1, 200 170 60 000 ml @ 20 mls/hr IV . Q24H [facility] Rx#:[id number] Intake, IV Titration 100 95.5 Amount Furosemide 100 mg In 100 95.5 Sodium Chloride 0.9% 90 ml @ 10 MG/HR 10 mls/hr IV .Q10H [facility]YA Rx#: [id number] Output: Urine 1400 1060 445 Other: Voiding Method Indwelling Catheter Indwelling Catheter Indwelling Catheter - Exam General: [non toxic], [no distress on BiPAP], [appears at stated age] Derm: [warm], [dry] Head: [atraumatic], [normocephalic], [symmetric] Eyes: [EOMI], [no lid lag], [anicteric sclera] Mouth: [no lip lesion], [mucus membranes moist] Cardiovascular: [S1S2 reg], [no murmur], [positive DP pulse bilateral], Lungs: [Decreased breath sounds bilateral], [no rhonchi, no rales] , [no accessory muscle use] Abdominal: [soft], [ nontender to palpation], [no guarding], [no appreciable organomegaly] Ext: [no gross muscle atrophy], [2+ lower extremity edema], [no contractures] Neuro: [no focal neuro deficits] Psych: [Alert], [oriented], [appropriate affect] - Labs CBC & Chem 7: 06/25/19 04:52 06/25/19 04:52 Labs: Abnormal Lab Results - Last 24 Hours (Table) 06/24/19 06/24/19 06/24/19 Range/Units 16:59 20:17 21:26 RBC (3.80-5.40) m/uL Hgb (11.4-16.0) gm/dL Hct (34.0-46.0) % MCV (80.0-100.0) fL Sodium (137-145) mmol/L Chloride (98-107) mmol/L Carbon Dioxide (22-30) mmol/L BUN (7-17) mg/dL Creatinine (0.52-1.04) mg/dL Glucose (74-99) mg/dL POC Glucose (mg/dL) 291 H 272 H 325 H (75-99) mg/dL 06/24/19 06/25/19 06/25/19 Range/Units 23:59 04:10 04:52 RBC 2.75 L (3.80-5.40) m/uL Hgb 8.9 L (11.4-16.0) gm/dL Hct 27.8 L (34.0-46.0) % MCV 101.2 H (80.0-100.0) fL Sodium (137-145) mmol/L Chloride (98-107) mmol/L Carbon Dioxide (22-30) mmol/L BUN (7-17) mg/dL Creatinine (0.52-1.04) mg/dL Glucose (74-99) mg/dL POC Glucose (mg/dL) 256 H 253 H (75-99) mg/dL 06/25/19 06/25/19 Range/Units 04:52 06:36 RBC (3.80-5.40) m/uL Hgb (11.4-16.0) gm/dL Hct (34.0-46.0) % MCV (80.0-100.0) fL Sodium 136 L (137-145) mmol/L Chloride 90 L (98-107) mmol/L Carbon Dioxide 39 H (22-30) mmol/L BUN 51 H (7-17) mg/dL Creatinine 1.67 H (0.52-1.04) mg/dL Glucose 178 H (74-99) mg/dL POC Glucose (mg/dL) 194 H (75-99) mg/dL Microbiology - Last 24 Hours (Table) 06/21/19 11:37 Blood Culture - Preliminary Blood No Growth after 72 hours Assessment and Plan Assessment: Acute hypoxic and hypercapnic respiratory failure likely due to CHF exacerbation Hypochloremic metabolic alkalosis Septic shock secondary to UTI, off Levophed Acute kidney injury from hypotension Type 2 diabetes mellitus with hyperglycemia Anemia Chronic conditions: Hypothyroidism, CAD post CABG and bioprosthetic aVR, chronic A. fib As seen on chest x-ray. BNP 21,200, Echocardiogram shows EF 40-45%. Plans: Continue Lasix drip at 10 mg per hour (increased from 5). Repeat chest x-ray in the morning. Continue beta vale. Strict intake and output take. Potassium greater than 4 magnesium greater than 2. Daily weights. Follow cardiology recommendations. Chloride 90, bicarbonate 39. Likely due to Lasix. Plans: Daily BMP. Monitor respiratory status. Levophed discontinued as BP has been maintaining. Urine culture shows E. coli. Blood culture negative at 72 hours. Plans: Continue Rocephin for a total of 7 days. Follow final blood cultures. Creatinine 1.67 today. Plans: Continue Metolazone by mouth. Midodrine scheduled to maintain SBP at 120. Strict urine output. Avoid nephrotoxins. Follow nephrology recommendations. [id number] glucose 194. Plans: Insulin sliding scale. Regular Accu-Cheks. Hypoglycemic precautions. Hemoglobin 8.9, stable. Plans: Transfuse if hemoglobin less than 7. [Patient continued on Lasix drip which is increased while continued on BiPAP for increased oxygen requirements. BP is improved, pressors discontinued. We'll discuss with daughter regarding palliative care. Likely DC in 2-3 days.]
[2019-06-25] MEDS: ACETAMINOPHEN TAB 325 MG TAB PO PRN (15:30)
[2019-06-25 17:20] LABS: Glucose,Whole Blood 238 mg/dL (75-99)
[2019-06-25] MEDS: SODIUM CHLORIDE 0.9% 1,000 ML IV SCH (17:25)
[2019-06-25 21:03] LABS: Glucose,Whole Blood 160 mg/dL (75-99)
[2019-06-26] MEDS: FUROSEMIDE 100 MG in SODIUM CHLORIDE 0.9% 90 ML IV SCH ×3 (01:50→22:44)
[2019-06-26] MEDS: LEVOTHYROXINE 112 MCG TAB PO SCH (06:31)
[2019-06-26 07:07] LABS: Glucose,Whole Blood 172 mg/dL (75-99)
[2019-06-26] MEDS: INSULIN ASPART (NovoLOG) 100 UNIT/ML VIAL SQ SCH ×4 (08:08→20:58)
[2019-06-26] MEDS: MIDODRINE 5 MG TAB PO SCH ×2 (09:26→12:57)
[2019-06-26] MEDS: CARBIDOPA-LEVODOPA 25-100 MG 1 EACH TAB PO SCH ×4 (09:27→20:58)
[2019-06-26] MEDS: METOPROLOL TARTRATE 12.5 MG TAB PO SCH ×2 (09:27→20:58)
[2019-06-26] MEDS: APIXABAN 2.5 MG TABLET PO SCH ×2 (09:27→20:58)
[2019-06-26] MEDS: PANTOPRAZOLE 40 MG TABLET PO SCH (09:27)
[2019-06-26] MEDS: ASPIRIN 81 MG PO SCH (09:27)
[2019-06-26] MEDS: METOLAZONE 5 MG TAB PO SCH (09:28)
--- NOTE | 2019-06-26 10:03 | P.PN ---
Subjective Progress Note Date: 06/26/19 Principal diagnosis: CHF exacerbation Patient was seen and examined. No acute events overnight. Lasix drip currently running at 10. Chest x-ray showing concerns of CHF. Patient reports significant improvement in her breathing since admission. Patient is continuing to require BiPAP. Per RN, unable to tolerate being off BiPAP for more than 30 minutes overnight. FiO2 at 40%. She denies any chest pain, shortness of breath or palpitations. No nausea or vomiting. No fever or chills. Patient continues to diurese well, producing 1300 mL urine over the last 24 hours, negative fluid balance. Objective - Vital Signs Vital signs: Vital Signs Temp 97.6 F 06/26/19 08:00 Pulse 83 06/26/19 08:00 Resp 17 06/26/19 08:00 BP 129/61 06/26/19 08:00 Pulse Ox 95 06/26/19 08:00 Intake & Output 06/25/19 06/26/19 06/26/19 18:59 06:59 18:59 Intake Total 709.667 240 Output Total 1800 3200 Balance -1090.333 -2960 Weight 103.2 kg 96 kg Intake: IV 210 40 Furosemide 100 mg In 20 Sodium Chloride 0.9% 90 ml @ 10 MG/HR 10 mls/hr IV .Q10H [facility] Rx#: [id number] Sodium Chloride 0.9% 1, 140 40 000 ml @ 20 mls/hr IV . Q24H [facility] Rx#:[id number] cefTRIAXone 1 gm In 50 Sodium Chloride 0.9% 50 ml @ 100 mls/hr IVPB Q24HR [facility] Rx#:[id number] Intake, IV Titration 139.667 200 Amount Diltiazem 125 mg In 80 Sodium Chloride 0.9% 100 ml @ 10 MG/HR 10 mls/hr IV .[id number] [facility] Rx#: [id number] Furosemide 100 mg In 59.667 200 Sodium Chloride 0.9% 90 ml @ 10 MG/HR 10 mls/hr IV .Q10H [facility] Rx#: [id number] Oral 360 Output: Urine 1800 3200 Other: Voiding Method Indwelling Catheter Indwelling Catheter # Bowel Movements 1 - Exam General: [non toxic], [no distress on BiPAP], [appears at stated age] Derm: [warm], [dry] Head: [atraumatic], [normocephalic], [symmetric] Eyes: [EOMI], [no lid lag], [anicteric sclera] Mouth: [no lip lesion], [mucus membranes moist] Cardiovascular: [S1S2 reg], [no murmur], [positive DP pulse bilateral], Lungs: [Decreased breath sounds bilateral], [no rhonchi, no rales] , [no accessory muscle use] Abdominal: [soft], [ nontender to palpation], [no guarding], [no appreciable organomegaly] Ext: [no gross muscle atrophy], [2+ lower extremity edema], [no contractures] Neuro: [no focal neuro deficits] Psych: [Alert], [oriented], [appropriate affect] - Labs CBC & Chem 7: 06/25/19 04:52 06/25/19 04:52 Labs: Abnormal Lab Results - Last 24 Hours (Table) 06/25/19 06/25/19 06/25/19 Range/Units 12:15 17:19 20:51 POC Glucose (mg/dL) 163 H 238 H 160 H (75-99) mg/dL 06/26/19 Range/Units 06:55 POC Glucose (mg/dL) 172 H (75-99) mg/dL Microbiology - Last 24 Hours (Table) 06/21/19 11:37 Blood Culture - Preliminary Blood No Growth after 96 hours Assessment and Plan Assessment: Acute hypoxic and hypercapnic respiratory failure likely due to CHF exacerbation Hypochloremic metabolic alkalosis Septic shock secondary to UTI, off Levophed Acute kidney injury from hypotension Type 2 diabetes mellitus with hyperglycemia Anemia Chronic conditions: Hypothyroidism, CAD post CABG and bioprosthetic aVR, chronic A. fib As seen on chest x-ray. BNP 21,200, Echocardiogram shows EF 40-45%. Plans: Continue Lasix drip at 10 mg per hour (increased from 5). Repeat chest x-ray in the morning. Continue beta vale. Strict intake and output take. Potassium greater than 4 magnesium greater than 2. Daily weights. Follow cardiology recommendations. Chloride 90, bicarbonate 39. Likely due to Lasix. Plans: Daily BMP. Monitor respiratory status. Levophed discontinued as BP has been maintaining. Urine culture shows E. coli. Blood culture negative at 96 hours. Plans: Continue Rocephin for a total of 7 days. Follow final blood cultures. Creatinine 1.67 today. Plans: Continue Metolazone by mouth. Midodrine scheduled to maintain SBP at 120. Strict urine output. Avoid nephrotoxins. Follow nephrology recommendations. [id number] glucose 172. Plans: Insulin sliding scale. Regular Accu-Cheks. Hypoglycemic precautions. Hemoglobin 8.9, stable. Plans: Transfuse if hemoglobin less than 7. [Patient continued on Lasix drip. Continues to require continuous BiPAP. BP is improved, pressors discontinued. Have not seen daughter in the last 3 days, will need to discuss Palliative care options prior to discharge. Likely DC in 2-3 days.]
[2019-06-26 10:30] LABS: Basophils % (A) 0 %; Eosinophils # (A) 0.1 k/uL (0-0.7); Eosinophils % (A) 2 %; HCT 29.6 % (34.0-46.0); HGB 9.6 gm/dL (11.4-16.0); Lymphocytes # (A) 0.6 k/uL (1.0-4.8); Lymphocytes % (A) 9 %; MCH 32.4 pg (25.0-35.0); MCHC 32.4 g/dL (31.0-37.0); MCV 100.1 fL (80.0-100.0); Macrocytosis Slight; Mean Platelet Volume 6.4; Monocytes # (A) 0.4 k/uL (0-1.0); Monocytes % (A) 5 %; Neutrophils # (A) 5.4 k/uL (1.3-7.7); Neutrophils % (A) 82 %; Platelet Count 299 k/uL (150-450); RBC 2.95 m/uL (3.80-5.40); RDW 14.4 % (11.5-15.5); WBC 6.6 k/uL (3.8-10.6)
[2019-06-26 10:43] LABS: Calcium 9.1 mg/dL (8.4-10.2); Magnesium 1.7 mg/dL (1.6-2.3); Potassium 3.7 mmol/L (3.5-5.1)
[2019-06-26 12:20] LABS: Glucose,Whole Blood 256 mg/dL (75-99)
--- NOTE | 2019-06-26 12:40 | XR ---
EXAMINATION TYPE: XR chest 1V portable DATE OF EXAM: 06/26/2019 HISTORY: CHF. REFERENCE: Previous study dated 06/25/2019. FINDINGS: There has been a midline sternotomy. Pulmonary vasculature is improved somewhat as has interstitial and airspace disease. There continues to be bibasilar airspace disease. There continues to be bilateral effusions. The heart is mildly enla rged. IMPRESSION: IMPROVING CHANGES OF CONGESTIVE HEART FAILURE.
--- NOTE | 2019-06-26 12:50 | P.PN ---
Subjective Progress Note Date: 06/26/19 Seen and examined for the follow-up of acute kidney injury. Feels better today. No nausea vomiting diarrhea. Still on high flow oxygen. Urine output of 5 L in the last 24 hours with a negative of 4 L. Objective - Vital Signs Vital signs: Vital Signs Temp 97.6 F 06/26/19 08:00 Pulse 83 06/26/19 08:00 Resp 17 06/26/19 08:00 BP 129/61 06/26/19 08:00 Pulse Ox 98 06/26/19 12:30 Intake & Output 06/25/19 06/26/19 06/26/19 18:59 06:59 18:59 Intake Total 709.667 240 100 Output Total 1800 3200 1500 Balance -1090.333 -2960 -1400 Weight 103.2 kg 96 kg Intake: IV 210 40 Furosemide 100 mg In 20 Sodium Chloride 0.9% 90 ml @ 10 MG/HR 10 mls/hr IV .Q10H [facility] Rx#: [id number] Sodium Chloride 0.9% 1, 140 40 000 ml @ 20 mls/hr IV . Q24H [facility] Rx#:[id number] cefTRIAXone 1 gm In 50 Sodium Chloride 0.9% 50 ml @ 100 mls/hr IVPB Q24HR [facility] Rx#:[id number] Intake, IV Titration 139.667 200 100 Amount Diltiazem 125 mg In 80 Sodium Chloride 0.9% 100 ml @ 10 MG/HR 10 mls/hr IV .[id number] [facility] Rx#: [id number] Furosemide 100 mg In 59.667 200 100 Sodium Chloride 0.9% 90 ml @ 10 MG/HR 10 mls/hr IV .Q10H [facility] Rx#: [id number] Oral 360 Output: Urine 1800 3200 1500 Other: Voiding Method Indwelling Catheter Indwelling Catheter Indwelling Catheter # Bowel Movements 1 - Exam No acute distress S1-S2 heard Decreased breath sounds Abdomen soft Tatum Edema. - Labs CBC & Chem 7: 06/26/19 10:04 06/26/19 10:04 Labs: Abnormal Lab Results - Last 24 Hours (Table) 06/25/19 06/25/19 06/26/19 Range/Units 17:19 20:51 06:55 RBC (3.80-5.40) m/uL Hgb (11.4-16.0) gm/dL Hct (34.0-46.0) % MCV (80.0-100.0) fL Lymphocytes # (1.0-4.8) k/uL Sodium (137-145) mmol/L Chloride (98-107) mmol/L Carbon Dioxide (22-30) mmol/L BUN (7-17) mg/dL Creatinine (0.52-1.04) mg/dL Glucose (74-99) mg/dL POC Glucose (mg/dL) 238 H 160 H 172 H (75-99) mg/dL 06/26/19 06/26/19 06/26/19 Range/Units 10:04 10:04 12:08 RBC 2.95 L (3.80-5.40) m/uL Hgb 9.6 L (11.4-16.0) gm/dL Hct 29.6 L (34.0-46.0) % MCV 100.1 H (80.0-100.0) fL Lymphocytes # 0.6 L (1.0-4.8) k/uL Sodium 135 L (137-145) mmol/L Chloride 84 L (98-107) mmol/L Carbon Dioxide 43 H* (22-30) mmol/L BUN 50 H (7-17) mg/dL Creatinine 1.24 H (0.52-1.04) mg/dL Glucose 274 H (74-99) mg/dL POC Glucose (mg/dL) 256 H (75-99) mg/dL Microbiology - Last 24 Hours (Table) 06/21/19 11:37 Blood Culture - Preliminary Blood No Growth after 96 hours Assessment and Plan Assessment: #1 nonoliguric acute kidney injury secondary to type I cardiorenal syndrome. Baseline creatinine 1.0 MG per DL. #2 hypoxia secondary to pulmonary edema. #3 systolic CHF with EF of 40%. #4 metabolic alkalosis secondary to diuresis and underlying lung disease. #5 urinary tract infection with E. coli. #6 hyponatremia, suspect hypervolemia and also hyperglycemia. Plan: #1 continue diuretics with Lasix drip and metolazone. #2 add acetazolamide 4 metabolic alkalosis #3. Stop midodrine. #4 labs in the morning.
[2019-06-26] MEDS: acetaZOLAMIDE 250 MG TAB PO SCH ×2 (13:10→18:19)
--- NOTE | 2019-06-26 14:56 | PN ---
PROGRESS NOTE This is a 78-year-old female with a history of acute hypoxemic and hypercapnic respiratory failure secondary to congestive heart failure. Currently, the patient has been BiPAP dependent. We will try her on AIRVO. The patient also has a history of E coli urinary tract infection, status post bioprosthetic aortic valve placement, acute kidney injury, hyperkalemia, diabetes, secondary pulmonary hypertension, chronic atrial fibrillation, Parkinson disease, mental status changes, hypothyroidism, hyperlipidemia, type 2 diabetes, and CAD with previous bypass grafting. The patient is a NO CODE. The patient states that she is feeling okay. Her saturations plummet though when she comes off the BiPAP. The patient denies any pain. No fever, no chills. No cough or phlegm production. She remains on a Lasix drip at 5 mg an hour. PHYSICAL EXAMINATION: VITAL SIGNS: Current vital signs include temperature 97.6, heart rate 83, respiratory rate 17, blood pressure 129/61, mean 83 and saturations are 95% on the BiPAP at 40%. GENERAL: Appears in no acute distress. No respiratory distress. HEENT examination is grossly unremarkable. BiPAP mask in place. NECK: Supple. Full range of motion. No adenopathy. CARDIOVASCULAR examination reveals regular rhythm and rate. S1, S2 normal. Heart rate about 83 beats per minute. There is a soft systolic murmur. LUNGS: Some bibasilar crackles and rhonchi. Breath sounds are diminished. ABDOMEN: Soft. Bowel sounds are heard. EXTREMITIES are intact. Mild edema. SKIN: Without rash. NEUROLOGIC: Examination is brief but nonfocal. LABS: Reviewed. White count 6.6, hemoglobin 9.6, hematocrit 29.6, platelet count 299,000. Sodium 135, potassium 3.7, chloride 94, CO2 43, anion gap 8. BUN and creatinine were 50 and 1.24. Microbiology showing E coli in the urine. Most recent chest x-ray done yesterday shows changes typical of congestive heart failure. Medications are reviewed. All are appropriate. ASSESSMENT: 1. Acute hypoxemic and hypercapnic respiratory failure related to acute exacerbation of congestive heart failure. 2. Systolic congestive heart failure, with an ejection fraction of 40% to 45%. 3. Escherichia coli urinary tract infection. 4. Septic shock. 5. Previous history of aortic valve replacement with mild periprosthetic regurgitation of the valve, mild to moderate mitral regurgitation and moderate pulmonary hypertension. 6. History of acute kidney injury. 7. Hyperkalemia. 8. Diabetes mellitus. 9. History of recent episode of severe gastroenteritis with hypovolemic shock and acute kidney injury. 10.Previous history of aortic valve disease with aortic valve replacement. 11.Chronic atrial fibrillation. 12.Parkinson disease. 13.Mental status changes. 14.Hypothyroidism. 15.Hyperlipidemia. 16.Type 2 diabetes. 17.Coronary artery disease with previous bypass grafting. PLAN: Currently, the patient is improving. She remains on a Lasix drip. She still is BiPAP dependent, though. We will go ahead and attempt the AIRVO to accept saturations of 85%. She has developed some prerenal azotemia. We will continue to follow. Medications are reviewed. Prognosis is poor. She is a DNR. MMNATASHAL / LUIS: [id number] /
[2019-06-26 17:31] LABS: Glucose,Whole Blood 252 mg/dL (75-99)
[2019-06-26] MEDS: SODIUM CHLORIDE 0.9% 1,000 ML IV SCH (18:18)
[2019-06-26] MEDS: ATORVASTATIN 10 MG TAB PO SCH (20:58)
[2019-06-26 20:59] LABS: Glucose,Whole Blood 277 mg/dL (75-99)
[2019-06-26] MEDS ORDERED: Potassium Replacement Protocol 1 EACH MISC MISCELLANE PRN (23:47)
[2019-06-27] MEDS ORDERED: POTASSIUM CHLORIDE ER 20 MEQ TAB.ER PO SCH
[2019-06-27] MEDS: FUROSEMIDE 100 MG in SODIUM CHLORIDE 0.9% 90 ML IV SCH ×2 (05:28→12:09)
[2019-06-27] MEDS: LEVOTHYROXINE 112 MCG TAB PO SCH (05:29)
[2019-06-27 07:29] LABS: Calcium 9.8 mg/dL (8.4-10.2); Potassium 3.5 mmol/L (3.5-5.1)
[2019-06-27 08:01] LABS: Glucose,Whole Blood 188 mg/dL (75-99)
[2019-06-27] MEDS: acetaZOLAMIDE 250 MG TAB PO SCH ×2 (08:17→21:03)
[2019-06-27] MEDS: PANTOPRAZOLE 40 MG TABLET PO SCH (08:17)
[2019-06-27] MEDS: INSULIN ASPART (NovoLOG) 100 UNIT/ML VIAL SQ SCH ×4 (08:17→21:04)
[2019-06-27] MEDS: APIXABAN 2.5 MG TABLET PO SCH ×2 (08:18→21:03)
[2019-06-27] MEDS: CARBIDOPA-LEVODOPA 25-100 MG 1 EACH TAB PO SCH ×4 (08:18→21:03)
[2019-06-27] MEDS: METOPROLOL TARTRATE 12.5 MG TAB PO SCH ×2 (08:18→21:03)
[2019-06-27] MEDS: ASPIRIN 81 MG PO SCH (08:18)
[2019-06-27] MEDS: METOLAZONE 5 MG TAB PO SCH (08:18)
--- NOTE | 2019-06-27 10:37 | P.PN ---
Subjective Progress Note Date: 06/27/19 Principal diagnosis: Acute hypoxic and hypercapnic respiratory failure related to acute exacerbation of CHF, urinary tract infection, septic shock This is 78-year-old white female patient of Dr. Bartholomew, with past medical history of chronic atrial fibrillation on anticoagulation, diabetes mellitus, dyslipidemia, hypertension, Parkinson's disease, hypothyroidism, chronic congestive heart failure, coronary artery disease with bypass grafting, previous surgery for aortic valve replacement. Patient presented to the emergency department on 06/21/2019 with complaints of worsening dyspnea and weakness. Patient apparently has a home pulse ox monitor and her pulse ox was in the 70s and 80s. Patient was recently hospitalized in April of this year with acute gastroenteritis of unknown etiology, and patient was critically ill during that admission with evidence of acute lactic acidosis, acute kidney injury, hypotension and hypovolemic shock, and patient required intensive care admission and monitoring. Patient also developed metabolic encephalopathy, and neurological workup was negative. Patient did develop worsening ascending weakness, and there was concern for possibility of Guillain-Arvin syndrome, but neurology felt it was unlikely. Patient's diarrhea gradually improved, she was opposed to have colonoscopy in the outpatient setting. Patient clinically imp roved and was eventually discharged to the [facility] for rehab therapy on 05/27/2019. Completed a course of Zosyn and Flagyl, C. diff screen was negative. During that admission patient did develop acute hypercapnic respiratory failure and generalized weakness of unknown etiology, and required BiPAP support. On 06/21/2019 patient was brought into the emergency department for evaluation of a dyspnea, and worsening weakness. Patient was recently discharged from the subacute rehab facility and was at home. Apparently she tried standing up earlier today and fell sideways, and patient apparently denied hitting injuries to her head. Denied any fever, or chills, denied any night sweats, denied chest pain. Most of the history was obtained from the chart, patient at the time of our evaluation is very difficult to arouse, there is a family member at the bedside who did provide some limited information in terms of her CODE STATUS. On 06/22/2019 we were called by the stepdown nurse taking care of the patient with concern of abnormal blood gases, that showed pO2 of 56, pCO2 of 70, and pH of 7.32. Admission blood work was negative for any evidence of leukocytosis, white blood cell count was 7.0, hemoglobin was 10.2 coagulation profile was within normal limits. Patient had evidence of acute kidney injury with a BUN of 657 and creatinine of 2.35, potassium of 6.1, and sodium of 136, BNP was 21,200, and troponin was negative 1. Patient had been oliguric, and urinalysis po sitive for signs of UTI. Patient was also hypotensive, was given a fluid bolus, and her potassium was treated with the 50% dextrose and insulin, however on this morning's labs potassium is persistently 6.2, nephrology has been consulted, Kayexalate has been given, chest x-ray shows increased density at the lung bases, blunting the costophrenic angles, central vascularity and interstitial or increased changes consistent with congestive heart failure and small pleural effusions. SHe received a dose of IV Lasix, she started making small amounts of urine, however neurologically she is increasingly more unresponsive, and subsequent blood gases showed worsening hypercapnic respiratory failure, with pH of 7.28, and pCO2 of 82, and this was done on BiPAP support with pressures of 12 and 6 and FiO2 of 30%. BiPAP settings were then changed to 16/6 and FiO2 of 30% and patient was transferred to the intensive care unit. Tatum catheter has been placed, patient being initiated on Lasix drip per nephrology. Repeat urinalysis did not show evidence of infection. Patient has been afebrile. Patient's family member states patient is a DO NOT RESUSCITATE CODE STATUS and she is able to provide proof she has a necessary paperwork at home. For now we will continue supportive treatment, and patient will be monitored closely in the intensive care unit. On 06/23/2019 patient seen in follow-up in the intensive care unit, she remains on BiPAP support with pressures of 16/6, and FiO2 of 30%, she started to open her eyes and respond better, compared to yesterday's exam, yesterday she was on Lasix drip however she became quite hypotensive and anuric, Lasix has been discontinued, and patient was initiated on Levothroid, earlier in the day she had been given some IV fluids. This morning she remains on 0.9 at 20, levo fed is at 5 mics per minute. And patient is starting to make amounts of urine in the order of 60 ML per hour, urine culture came back positive for gram-negative bacilli, final cultures pending, blood culture showed no growth, no fever or chills, we'll initiate the patient on empiric antibiotics in the form of Rocephin. Sodium is 133, potassium is 5.7, chloride is 91, CO2 is 38, B1 is 66, creatinine is 2.3, slightly improved renal profile from yesterday, proBNP was elevated at 21,200, and troponin was negative at admission. US of the kidneys showed no evidence of hydronephrosis Chest x-ray has been reviewed still showing changes compatible with CHF exacerbation hilar prominence consistent with pulmonary arterial hypertension. Hemodynamically seems to be slightly improved, no diarrhea, patient had a solid bowel movement yesterday. On 06/24/2019 patient was seen in follow-up in the intensive care unit, she is clinically much improved, she is awake and alert, she is off the BiPAP support, currently on 4 L of oxygen her pulse ox is 95-98%, afebrile, hemodynamically patient is stable, levo fed has been weaned off since yesterday, patient was restarted back on Lasix drip at 5 mg per hour, she is making urine in the order of 200-370 ML per hour. Denies any respiratory difficulty, lung sounds are essentially clear to auscultation, diminished at the bases, no component of chest pain, today's labs have been reviewed, showing no evidence of leukocytosis, was felt was 5.8, hemoglobin is 8.4, sodium is 134, potassium is 4.1, CO2 is 37, chloride is 93, renal profile is improving, BUN is 52, creatinine is 1.74, urine culture was positive for E. coli which was guerra susceptible, Procan acetone level came back slightly elevated at 0.14, and cortisol level was normal at 21. Patient is tolerating regular diet, no nausea, vomiting or diarrhea. On 06/25/2019 patient seen in follow-up in the intensive care unit, she is awake and alert, she is on BiPAP support, with pressures of 16 and 6, and FiO2 of 40%, she is oriented 3, no altered mentation, answering questions appropriately, denies any respiratory distress. We will switch her to nasal cannula this morning, yesterday patient tolerated nasal cannula trials well, was placed on BiPAP support overnight, she is afebrile, she is on Rocephin for empiric antibiotic coverage evidence of E. coli infection in the urine. Blood cultures have been negative. Today's chest x-ray has been reviewed showing stable diffuse pleural parenchymal changes pleural effusions bilaterally, and bibasilar infiltrates, and diffuse interstitial pattern, changes compatible with CHF. Patient remains on Lasix drip at 10 mg per hour, 0.9 normal saline at a rate of 20 ML per hour. Today's labs have been reviewed. Blood blood cell count 6.3, hemoglobin is 8.9, sodium is 136, potassium is 4.2, chloride is 90, CO2 is 39, BUN is 51 and creatinine is 1.67, renal profile slightly improved. Patient is in negative fluid balance, her weight is down by 6.7 kg last 24 hours, patient has plus lower extremity edema on physical examination, lung sounds are clear On 06/27/2019 patient seen in follow-up on medical surgical floor. She has been transitioned to Airvo from BiPAP support, currently on 45 L/m or FiO2 of 40%, sh e states she is tolerating it very well, she likes it better than the BiPAP, she is awake and alert, no altered mentation, answering questions appropriately, she states she would like to get up and walk rhonchi, however she has any movement been up in the chair yet, she is generally weak, but no acute complaints, no fever or chills, hemodynamically she is stable, she remains on Lasix drip currently at 10 mg per hour, she is in negative for thousand and 50 ML over last 24 hours, we'll diffuse crackles, and there is some residual 1+ lower extremity edema, chest x-ray still shows changes consistent with congestive heart failure, with improvement, and bilateral pleural effusions. Today's labs have been reviewed, BNP was done only, there is a worsening of metabolic alkalosis, with CO2 up to 46, and a slight worsening of renal profile, with B UN of 41 and creatinine of 1.51, Diamox was added by nephrology, and we will cut back to IV Lasix to 5 mg per hour. Objective - Vital Signs Vital signs: Vital Signs Temp 97.8 F 06/27/19 07:00 Pulse 81 06/27/19 07:00 Resp 16 06/27/19 07:00 BP 156/71 06/27/19 07:00 Pulse Ox 97 06/27/19 08:23 Intake & Output 06/26/19 06/27/19 06/27/19 19:59 06:59 18:59 Intake Total Output Total Balance Intake: IV Sodium Chloride 0.9% 1, 000 ml @ 20 mls/hr IV . Q24H AMEYA Rx#:[id number] cefTRIAXone 1 gm In Sodium Chloride 0.9% 50 ml @ 100 mls/hr IVPB Q24HR AMEYA Rx#:[id number] Intake, IV Titration Amount Furosemide 100 mg In Sodium Chloride 0.9% 90 ml @ 10 MG/HR 10 mls/hr IV .Q10H AMEYA Rx#: [id number] Oral Output: Urine Uretheral (Tatum) Other: Voiding Method - Exam GENERAL EXAM: Alert and oriented 3 78-year-old white female, Airvo at 45 l/min, and FiO2 40% wakes up to verbal stimuli, and tries to provide simple verbal answers HEAD: Normocephalic/atraumatic. EYES: Normal reaction of pupils, equal size. Conjunctiva pink, sclera white. NOSE: Clear with pink turbinates. THROAT: No erythema or exudates. NECK: No masses, no JVD, no thyroid enlargement, no adenopathy. CHEST: No chest wall deformity. Symmetrical expansion. LUNGS: Equal air entry with diffuse crackles, but no wheeze, rhonchi or dullness. CVS: Regular rate and rhythm, normal S1 and S2, no gallops, no murmurs, no rubs ABDOMEN: Soft, nontender. No hepatosplenomegaly, normal bowel sounds, no guarding or rigidity. EXTREMITIES: No clubbing, no edema, no cyanosis, 2+ pulses and upper and lower extremities. MUSCULOSKELETAL: Muscle strength and tone normal. SPINE: No scoliosis or deformity SKIN: No rashes CENTRAL NERVOUS SYSTEM: Alert, oriented 3, and No focal deficits, tone is n ormal in all 4 extremities. - Labs CBC & Chem 7: 06/26/19 10:04 06/27/19 06:24 Labs: Abnormal Lab Results - Last 24 Hours (Table) 06/26/19 06/26/19 06/26/19 Range/Units 12:08 17:19 20:47 Chloride (98-107) mmol/L Carbon Dioxide (22-30) mmol/L BUN (7-17) mg/dL Creatinine (0.52-1.04) mg/dL Glucose (74-99) mg/dL POC Glucose (mg/dL) 256 H 252 H 277 H (75-99) mg/dL 06/27/19 06/27/19 Range/Units 06:24 07:27 Chloride 81 L (98-107) mmol/L Carbon Dioxide 46 H* (22-30) mmol/L BUN 41 H (7-17) mg/dL Creatinine 1.51 H (0.52-1.04) mg/dL Glucose 177 H (74-99) mg/dL POC Glucose (mg/dL) 188 H (75-99) mg/dL Microbiology - Last 24 Hours (Table) 06/21/19 11:37 Blood Culture - Preliminary Blood No Growth after 120 hours Assessment and Plan Plan: Assessment: #1. Acute hypoxic and hypercapnic respiratory failure related to acute exacerbation of CHF, with moderately impaired left ventricle systolic function of 40-45% #2. Urinary tract infection related to E. coli which was guerra susceptible, septic shock #3. Mild periprosthetic regurgitation of the bioprosthetic aortic valve, [id number] mitral regurgitation, and moderate pulmonary hypertension of 57.4 mmHg PA systolic #4. Acute kidney injury #5. Hyperkalemia, improving #6. Diabetes mellitus #7. Recent discharge from subacute rehab following a prolonged hospitalization for severe gastroenteritis, hypovolemic shock, acute kidney injury #8. History of aortic valve disease and previous replacement #9. Secondary pulmonary hypertension #10. Chronic atrial fibrillation #11. Parkinson's disease #12. Episodes of altered mental status requiring BiPAP support for hypercapnic respiratory failure during previous admission, and neurologic workup was negative #13. Hypothyroidism #14. Hyperlipidemia #15. Type 2 diabetes #16. History of coronary artery disease and previous bypass grafting #17. Metabolic alkalosis likely related to IV diuretics Plan: We'll cut back IV Lasix to 5 mg per hour, Diamox has been added by nephrology, patient has developed worsening metabolic alkalosis related to IV diuresis, she is in negative fluid balance, she is breathing easier, yesterday's chest x-ray showed improving changes of congestive heart failure, weaning FiO2, encourage th e patient is to sitt up in the chair, consult physical therapy. Follow-up chest x-ray in the morning. I performed a history & physical examination of the patient and discussed their management with my nurse practitioner, Eneida Hayes. I reviewed the nurse practitioner's note and agree with the documented findings and plan of care. Lung sounds are positive for diminisheshed breath sounds. The findings and the impression was discussed with the patient. I attest to the documentation by the nurse practitioner. Time with Patient: Less than 30
--- NOTE | 2019-06-27 11:22 | P.PN ---
Subjective Progress Note Date: 06/27/19 Seen and examined for the follow-up of acute kidney injury. Feels better today. No nausea vomiting diarrhea. Still on high flow oxygen. Urine output of 8 L in the last 24 hours with a negative of 7 L. Objective - Vital Signs Vital signs: Vital Signs Temp 97.8 F 06/27/19 07:00 Pulse 81 06/27/19 08:25 Resp 16 06/27/19 08:25 BP 156/71 06/27/19 07:00 Pulse Ox 97 06/27/19 08:23 Intake & Output 06/26/19 06/27/19 06/27/19 19:59 06:59 18:59 Intake Total Output Total Balance Intake: IV Sodium Chloride 0.9% 1, 000 ml @ 20 mls/hr IV . Q24H [facility] Rx#:[id number] cefTRIAXone 1 gm In Sodium Chloride 0.9% 50 ml @ 100 mls/hr IVPB Q24HR [facility] Rx#:[id number] Intake, IV Titration Amount Furosemide 100 mg In Sodium Chloride 0.9% 90 ml @ 10 MG/HR 10 mls/hr IV .Q10H [facility]EYA Rx#: [id number] Oral Output: Urine Uretheral (Tatum) Other: Voiding Method Indwelling Catheter - Exam No acute distress S1-S2 heard Decreased breath sounds Abdomen soft Tatum Edema. - Labs CBC & Chem 7: 06/26/19 10:04 06/27/19 06:24 Labs: Abnormal Lab Results - Last 24 Hours (Table) 06/26/19 06/26/19 06/26/19 Range/Units 12:08 17:19 20:47 Chloride (98-107) mmol/L Carbon Dioxide (22-30) mmol/L BUN (7-17) mg/dL Creatinine (0.52-1.04) mg/dL Glucose (74-99) mg/dL POC Glucose (mg/dL) 256 H 252 H 277 H (75-99) mg/dL 06/27/19 06/27/19 Range/Units 06:24 07:27 Chloride 81 L (98-107) mmol/L Carbon Dioxide 46 H* (22-30) mmol/L BUN 41 H (7-17) mg/dL Creatinine 1.51 H (0.52-1.04) mg/dL Glucose 177 H (74-99) mg/dL POC Glucose (mg/dL) 188 H (75-99) mg/dL Microbiology - Last 24 Hours (Table) 06/21/19 11:37 Blood Culture - Preliminary Blood No Growth after 120 hours Assessment and Plan Assessment: #1 nonoliguric acute kidney injury secondary to type I cardiorenal syndrome. Baseline creatinine 1.0 MG per DL. #2 hypoxia secondary to pulmonary edema. #3 systolic CHF with EF of 40%. #4 metabolic alkalosis secondary to diuresis and underlying lung disease. #5 urinary tract infection with E. coli. #6 hyponatremia improved, suspect hypervolemia and also hyperglycemia. Plan: #1 continue diuretics with Lasix drip and discontinue metolazone. #2 continue with acetazolamide for metabolic alkalosis #3. labs in the morning. #4 can be changed to Lasix 40 mg IV twice a day from tomorrow.
--- NOTE | 2019-06-27 11:56 | P.PN ---
Subjective Progress Note Date: 06/27/19 Principal diagnosis: CHF exacerbation Patient was seen and examined. No acute events overnight. Lasix drip decreased from 10-5. Chest x-ray showing improvement in CHF yesterday. Patient reports significant improvement in her breathing since admission. Patient is currently off BiPAP and on Airvo FiO2 at 40%, 45L. She denies any chest pain, shortness of breath or palpitations. No nausea or vomiting. No fever or chills. Patient continues to diurese well, producing 3850 mL urine over the last 24 hours, negative fluid balance. Objective - Vital Signs Vital signs: Vital Signs Temp 97.8 F 06/27/19 07:00 Pulse 81 06/27/19 08:25 Resp 16 06/27/19 08:25 BP 156/71 06/27/19 07:00 Pulse Ox 97 06/27/19 08:23 Intake & Output 06/26/19 06/27/19 06/27/19 19:59 06:59 18:59 Intake Total Output Total Balance Intake: IV Sodium Chloride 0.9% 1, 000 ml @ 20 mls/hr IV . Q24H [facility]YA Rx#:[id number] cefTRIAXone 1 gm In Sodium Chloride 0.9% 50 ml @ 100 mls/hr IVPB Q24HR [facility] Rx#:[id number] Intake, IV Titration Amount Furosemide 100 mg In Sodium Chloride 0.9% 90 ml @ 10 MG/HR 10 mls/hr IV .Q10H [facility]YA Rx#: [id number] Oral Output: Urine Uretheral (Tatum) Other: Voiding Method Indwelling Catheter - Exam General: [non toxic], [no distress on BiPAP], [appears at stated age] Derm: [warm], [dry] Head: [atraumatic], [normocephalic], [symmetric], [wound over the bridge of the nose likely from BiPAP] Eyes: [EOMI], [no lid lag], [anicteric sclera] Mouth: [no lip lesion], [mucus membranes moist] Cardiovascular: [S1S2 reg], [no murmur], [positive DP pulse bilateral], Lungs: [Decreased breath sounds bilateral], [mild crackles at the bases bilaterally] , [no accessory muscle use] Abdominal: [soft], [ nontender to palpation], [no guarding], [no appreciable organomegaly] Ext: [no gross muscle atrophy], [1+ lower extremity edema], [no contractures] Neuro: [no focal neuro deficits] Psych: [Alert], [oriented], [appropriate affect] - Labs CBC & Chem 7: 06/26/19 10:04 06/27/19 06:24 Labs: Abnormal Lab Results - Last 24 Hours (Table) 06/26/19 06/26/19 06/27/19 Range/Units 17:19 20:47 06:24 Chloride 81 L (98-107) mmol/L Carbon Dioxide 46 H* (22-30) mmol/L BUN 41 H (7-17) mg/dL Creatinine 1.51 H (0.52-1.04) mg/dL Glucose 177 H (74-99) mg/dL POC Glucose (mg/dL) 252 H 277 H (75-99) mg/dL 06/27/19 Range/Units 07:27 Chloride (98-107) mmol/L Carbon Dioxide (22-30) mmol/L BUN (7-17) mg/dL Creatinine (0.52-1.04) mg/dL Glucose (74-99) mg/dL POC Glucose (mg/dL) 188 H (75-99) mg/dL Microbiology - Last 24 Hours (Table) 06/21/19 11:37 Blood Culture - Preliminary Blood No Growth after 120 hours Assessment and Plan Assessment: Acute hypoxic and hypercapnic respiratory failure likely due to CHF exacerbation Hypochloremic metabolic alkalosis Septic shock secondary to UTI, off Levophed Acute kidney injury from hypotension Type 2 diabetes mellitus with hyperglycemia Anemia Chronic conditions: Hypothyroidism, CAD post CABG and bioprosthetic aVR, chronic A. fib Yesterday chest x-ray shows improvement in CHF. BNP 21,200, Echocardiogram shows EF 40-45%. Plans: Decreased Lasix drip to 5 mg per hour. Repeat chest x- ray in the morning. Continue beta vale. Strict intake and output take. Potassium greater than 4 magnesium greater than 2. Daily weights. Follow cardiology recommendations. Chloride 81, bicarbonate 46. Likely due to Lasix. Plans: Daily BMP. Monitor respiratory status. Start Acetazolamide 250 mg by mouth twice a day as per nephrology recommendations. Levophed discontinued as BP has been maintaining. Urine culture shows E. coli. Blood culture negative at 120 hours. Plans: Continue Rocephin for a total of 7 days. Follow final blood cultures. Creatinine 1.51 today. Plans: Midodrine and Metalozone discontinued by Nephrology. Strict urine output. Avoid nephrotoxins. Follow nephrology recommendations. Ktchd-no-eoab glucose 188. Plans: Insulin sliding scale. Regular Accu-Cheks. Hypoglycemic precautions. Hemoglobin 9.6, stable. Plans: Transfuse if hemoglobin less than 7. [Patient continued on Lasix drip. Currently Airvo. Have not seen daughter in the last 4 days, will need to discuss Palliative care options prior to discharge. Likely DC in 2-3 days. Plans to go home as per patient with home health.]
[2019-06-27 12:35] LABS: Glucose,Whole Blood 281 mg/dL (75-99)
[2019-06-27 17:49] LABS: Glucose,Whole Blood 362 mg/dL (75-99)
[2019-06-27 20:46] LABS: Glucose,Whole Blood 327 mg/dL (75-99)
[2019-06-27] MEDS: ATORVASTATIN 10 MG TAB PO SCH (21:04)
[2019-06-27] MEDS: SODIUM CHLORIDE 0.9% 1,000 ML IV SCH (21:05)
[2019-06-28] MEDS: FUROSEMIDE 100 MG in SODIUM CHLORIDE 0.9% 90 ML IV SCH (01:21)
[2019-06-28] MEDS: LEVOTHYROXINE 112 MCG TAB PO SCH (05:43)
[2019-06-28 07:26] LABS: Glucose,Whole Blood 226 mg/dL (75-99)
[2019-06-28 07:31] LABS: Calcium 9.9 mg/dL (8.4-10.2); Magnesium 1.9 mg/dL (1.6-2.3); Potassium 3.4 mmol/L (3.5-5.1)
[2019-06-28 07:52] LABS: HCT 33.6 % (34.0-46.0); Hypochromasia Slight; MCH 32.5 pg (25.0-35.0); MCHC 32.7 g/dL (31.0-37.0); MCV 99.4 fL (80.0-100.0); Macrocytosis Slight; Mean Platelet Volume 6.1; Platelet Count 343 k/uL (150-450); RBC 3.38 m/uL (3.80-5.40); RDW 14.1 % (11.5-15.5); WBC 10.2 k/uL (3.8-10.6)
[2019-06-28] MEDS: INSULIN ASPART (NovoLOG) 100 UNIT/ML VIAL SQ SCH ×5 (08:26→22:41)
[2019-06-28] MEDS: PANTOPRAZOLE 40 MG TABLET PO SCH (08:29)
[2019-06-28] MEDS: acetaZOLAMIDE 250 MG TAB PO SCH ×2 (08:29→18:03)
[2019-06-28] MEDS: ASPIRIN 81 MG PO SCH (08:29)
[2019-06-28] MEDS: APIXABAN 2.5 MG TABLET PO SCH ×2 (08:29→22:40)
[2019-06-28] MEDS: METOPROLOL TARTRATE 12.5 MG TAB PO SCH ×2 (08:29→22:40)
[2019-06-28] MEDS: CARBIDOPA-LEVODOPA 25-100 MG 1 EACH TAB PO SCH ×4 (08:29→22:40)
[2019-06-28] MEDS ORDERED: POTASSIUM CHLORIDE ER 20 MEQ TAB.ER PO SCH (09:00)
[2019-06-28] MEDS: POTASSIUM CHLORIDE ER 20 MEQ TAB.ER PO SCH ×3 (10:06→14:18)
--- NOTE | 2019-06-28 10:18 | XR ---
EXAMINATION TYPE: XR chest 1V portable DATE OF EXAM: 06/28/2019 COMPARISON: 06/26/2019 HISTORY: Shortness of breath FINDINGS: There are bilateral pleural effusions with cardiomegaly and bibasilar infiltrate. There is a diffuse interstitial pattern. Postsurgical changes are noted. Arthropathy of the left shoulder. No pneumotho rax. IMPRESSION: 1. Correlate for CHF. Otherwise consider pneumonia. Findings are similar to the prior exam.
--- NOTE | 2019-06-28 11:02 | CDI ---
Documentation Clarification Form Date: 06/25/2019 12:26:00 PM From: Belkys Estrada RN, CCDS Admit Date: 06/21/2019 2:28:00 PM Patient Name: Violet Thorne Visit Number: [id number] Discharge Date: ATTENTION: The Clinical Documentation Specialists (CDI) and [facility] Coding Staff appreciate your assistance in clarifying documentation. Please respond to the clarification below the line at the bottom and electronically sign. The CDI & [facility] Coding staff will review the response and follow-up if needed. Please note: Queries are made part of the Legal Health Record. If you have any questions, please contact the author of this message via ITS. Dr. Silviano Henriquez 06/21/19 The patient presented with the following: Shortness of breath and weakness, severe hypercapnia with pCO2 of 70, hyperkalemic of 6.7, lactic acidosis of 3.1. 06/22/19 Patient noted to have declined since 06/21/19 now more confused and was placed on BIPAP due to her hypercarbic hypoxic respiratory failure. It was noted that patient blood pressure is also declining and running low. BP 83/42 55 24 97.5 90 % BIPAP History/Risk Factors: Sepsis, Severe pulmonary hypertension, Atrial fibrillation, Diabetes mellitus, hypertension, Heart failure Clinical Indicators: 78-year-old female who presented to the emergency with complaints of shortness of breath with worsening weakness. She was elevated and as noted to have mildly elevated lactic acid of 3.1 proBNP was 21,200. She was admitted with a working diagnosis of acute on chronic congestive heart failure, with mild respiratory distress. In the history and physical an abnormal urine analysis, large number of epithelial cells, notes likely contaminated. WBC 7.0 Lactic acid: 3.1 Blood cultures: Negative to date UA: Turbid, Ur leukocyte Esterase Large, Urine bacteria Moderate, Hyaline casts 9; Urine culture 06/21/19 Echerichia coli Vitals signs on admission: 109/46 57 19, 98/51 75 18 98.2 Treatment: ICU Monitoring, BiPAP support Lasix IV Levophed drop (start 06/22/19) Monitor CBC, Lytes Antibiotics: Rocephin IV IV Bolus In your professional opinion, please clarify if these findings signify one of the following conditions, whether the condition is POA, and cause, if known: Condition Sepsis (present on admission) Sepsis (not present on admission) Other, please specify Unable to determine SIRS Criteria (2 or more of the following may indicate SIRS): -Temperature < 96.8F (36C) or > 101.0F (38.3C) -Heart Rate > 90 bpm -Respiratory Rate > 20 breaths/min or PaCO2 < 32 mmHg -White Blood Cell Count > 12,000 or < 4,000 cells/mm3 or > 10% bands -Lactate >2.0 mmol/L (>4.0 is equivalent to septic shock) (Last Revision: November 2017) patient met sepsis criteria on admission but likely related more to CHF rather than infectious cause MTDD
[2019-06-28 11:39] LABS: Glucose,Whole Blood 303 mg/dL (75-99)
--- NOTE | 2019-06-28 12:58 | P.PN ---
Subjective Progress Note Date: 06/28/19 Principal diagnosis: CHF exacerbation Patient was seen and examined. No acute events overnight. Lasix drip continued at 10. Chest x-ray showing continued findings from yesterday. Patient reports significant improvement in her breathing since admission. Patient is currently off BiPAP and on Airvo FiO2 at 30 %, 35 L. She denies any chest pain, shortness of breath or palpitations. No nausea or vomiting. No fever or chills. Patient continues to diurese well, in negative fluid balance. Objective - Vital Signs Vital signs: Vital Signs Temp 97.9 F 06/28/19 07:00 Pulse 73 06/28/19 12:16 Resp 16 06/28/19 07:00 BP 119/60 06/28/19 12:16 Pulse Ox 94 L 06/28/19 07:42 Intake & Output 06/27/19 06/28/19 06/28/19 18:59 06:59 18:59 Intake Total 606.833 100 Output Total 3200 3100 Balance -2593.167 -3000 Intake: Intake, IV Titration 66.833 100 Amount Furosemide 100 mg In 66.833 100 Sodium Chloride 0.9% 90 ml @ 5 MG/HR 5 mls/hr IV .Q20H [facility] Rx#:[id number] Oral 540 Output: Urine 3200 3100 Other: Voiding Method Indwelling Catheter Indwelling Catheter Indwelling Catheter # Voids 1 # Bowel Movements 1 - Exam General: [non toxic], [no distress on BiPAP], [appears at stated age] Derm: [warm], [dry] Head: [atraumatic], [normocephalic], [symmetric], [wound over the bridge of the nose likely from BiPAP] Eyes: [EOMI], [no lid lag], [anicteric sclera] Mouth: [no lip lesion], [mucus membranes moist] Cardiovascular: [S1S2 reg], [no murmur], [positive DP pulse bilateral], Lungs: [Decreased breath sounds bilateral], [mild crackles at the bases bilaterally] , [no accessory muscle use] Abdominal: [soft], [ nontender to palpation], [no guarding], [no appreciable organomegaly] Ext: [no gross muscle atrophy], [1+ lower extremity edema], [no contractures] Neuro: [no focal neuro deficits] Psych: [Alert], [oriented], [appropriate affect] - Labs CBC & Chem 7: 06/28/19 06:54 06/28/19 06:54 Labs: Abnormal Lab Results - Last 24 Hours (Table) 06/27/19 06/27/19 06/28/19 Range/Units 17:36 20:44 06:54 RBC (3.80-5.40) m/uL Hgb (11.4-16.0) gm/dL Hct (34.0-46.0) % Sodium 135 L (137-145) mmol/L Potassium 3.4 L (3.5-5.1) mmol/L Chloride 81 L (98-107) mmol/L Carbon Dioxide 43 H* (22-30) mmol/L BUN 45 H (7-17) mg/dL Creatinine 1.55 H (0.52-1.04) mg/dL Glucose 200 H (74-99) mg/dL POC Glucose (mg/dL) 362 H 327 H (75-99) mg/dL 06/28/19 06/28/19 06/28/19 Range/Units 06:54 07:04 11:27 RBC 3.38 L (3.80-5.40) m/uL Hgb 11.0 L (11.4-16.0) gm/dL Hct 33.6 L (34.0-46.0) % Sodium (137-145) mmol/L Potassium (3.5-5.1) mmol/L Chloride (98-107) mmol/L Carbon Dioxide (22-30) mmol/L BUN (7-17) mg/dL Creatinine (0.52-1.04) mg/dL Glucose (74-99) mg/dL POC Glucose (mg/dL) 226 H 303 H (75-99) mg/dL Microbiology - Last 24 Hours (Table) 06/21/19 11:37 Blood Culture - Final Blood No Growth after 144 hours Assessment and Plan Assessment: Acute hypoxic and hypercapnic respiratory failure likely due to CHF exacerbation Hypokalemia Hypochloremic metabolic alkalosis Septic shock secondary to UTI, off Levophed Acute kidney injury from hypotension Type 2 diabetes mellitus with hyperglycemia Anemia Debility Chronic conditions: Hypothyroidism, CAD post CABG and bioprosthetic aVR, chronic A. fib Chest x-ray done this morning shows no changes since previous chest x-ray. BNP 21,200, Echocardiogram shows EF 40-45%. Plans: Lasix drip continued at 10 mg per hour. Per pulmonology, attempt to wean Airvo. Continue beta vale. Strict intake and output take. Potassium greater than 4 magnesium greater than 2. Daily weights. Follow cardiology recommendations. Potassium 3.4. Plans: Replaced via protocol. Repeat BMP in the morning. Chloride 81, bicarbonate 46-43. Likely due to Lasix. Plans: Daily BMP. Monitor respiratory status. Continue Acetazolamide 250 mg by mouth twice a day as per nephrology recommendations. Discussed with nursing, monitor for somno lence, will order ABG this mentation or breathing worsens. Levophed discontinued as BP has been maintaining. Urine culture shows E. coli. Blood culture negative at 144 hours. Plans: Continue Rocephin for a total of 7 days. Creatinine 1.55 today. Plans: Midodrine and Metalozone discontinued by Nephrology. Strict urine output. Avoid nephrotoxins. Follow nephrology recommendations. [id number]-[id number] glucose 303. Plans: Insulin sliding scale. Regular Accu-Cheks. Hypoglycemic precautions. Add 5 units NovoLog 3 times a day with meals as blood sugars has consistently been over 200. Hemoglobin 11, stable. Plans: Transfuse if hemoglobin less than 7. RN reports needing two-person assist. Plans: Follow PT and OT recommendations for possible rehab. Patient would prefer to go home with home health as discussed on admission. [Patient continued on Lasix drip. Currently on Airvo. Have not seen daughter in the last 5 days, will need to discuss Palliative care options prior to discharge. Likely DC in 2-3 days. ]
--- NOTE | 2019-06-28 13:42 | P.CON ---
Consult Note - . Consult date: 06/28/19 Assessment/Plan:: 78-year-old pleasant female who is being seen by wound care center for a nonhealing ulceration to the coccyx. This is a hospital-acquired ulceration. Due to the critical nature of the patient patient had extended amount of time in supine position resulting in an ulceration to the coccyx. The ulceration is a stage II pressure ulceration. At this time there is foam on the site with barrier cream. The ulceration is measuring approximately 2.5 x 0.4 x 0.1 cm periwound skin is attached. There is adherent Slough and granulation noted to the wound bed. No drainage was noted. Patient is complaining of significant pain to the site. Patient's past medical history significant for atrial fibrillation, coronary artery disease, heart failure, diabetes mellitus, hyperlipidemia, hypertension, osteoarthritis, hypothyroid, Parkinson's, neuropathy to bilateral legs. Patient had a coronary bypass in 2010. Patient denies history of smoking. Review of systems: Integumentary: Reports wound, denies any new skin lesions, denies pruritus, denies bruising Physical exam: Integumentary: See HPI Assessment/plan: 1. Nonhealing ulceration with fatty layer exposure with pressure component stage II, apply triad to the site daily. May use foam as needed for drainage. Continue to offload. Utilize air cushion for sitting. Assess surfaces for appropriate offloading. Discussed with patient if ulceration continues to be nonhealing make an appointment with the wound care center for outpatient wound care. Patient verbalized understanding. 2. History of diabetes 3. History of coronary artery disease 4. Atrial fibrillation 5. Heart failure 6. Hypertension 7. Hyperlipidemia 8. Osteoarthritis 9. Hypothyroid 10. Parkinson 11. Neuropathy Thank you kindly for the consultation. Any questions please contact the wound care center. DNP note has been reviewed and discussed with Dr. Zamora and the impression and plan of care has been directed as dictated.
[2019-06-28 13:54] VITALS: BMI 35.2
--- NOTE | 2019-06-28 16:03 | P.PN ---
Subjective Progress Note Date: 06/28/19 This is 78-year-old white female patient of Dr. Bartholomew, with past medical history of chronic atrial fibrillation on anticoagulation, diabetes mellitus, dyslipidemia, hypertension, Parkinson's disease, hypothyroidism, chronic congestive heart failure, coronary artery disease with bypass grafting, previous surgery for aortic valve replacement. Patient presented to the emergency department on 06/21/2019 with complaints of worsening dyspnea and weakness. Patient apparently has a home pulse ox monitor and her pulse ox was in the 70s and 80s. Patient was recently hospitalized in April of this year with acute gastroenteritis of unknown etiology, and patient was critically ill during that admission with evidence of acute lactic acidosis, acute kidney injury, hypotension and hypovolemic shock, and patient required intensive care admission and monitoring. Patient also developed metabolic encephalopathy, and neurological workup was negative. Patient did develop worsening ascending weakness, and there was concern for possibility of Guillain-Martell syndrome, but neurology felt it was unlikely. Patient's diarrhea gradually improved, she was opposed to have colonoscopy in the outpatient setting. Patient clinically improved and was eventually discharged to the [facility] for rehab therapy on 05/27/2019. Completed a course of Zosyn and Flagyl, C. diff screen was negative. During that admission patient did develop acute hypercapnic respiratory failure and generalized weakness of unknown etiology, and required BiPAP support. On 06/21/2019 patient was brought into the emergency department for evaluation of a dyspnea, and worsening weakness. Patient was recently discharged from the subacute rehab facility and was at home. Apparently she tried standing up earlier today and fell sideways, and patient apparently denied hitting injuries to her head. Denied any fever, or chills, denied any night sweats, denied chest pain. Most of the history was obtained from the chart, patient at the time of our evaluation is very difficult to arouse, there is a family member at the bedside who did provide some limited information in terms of her CODE STATUS. On 06/22/2019 we were called by the stepdown nurse taking care of the patient with concern of abnormal blood gases, that showed pO2 of 56, pCO2 of 70, and pH of 7.32. Admission blood work was negative for any evidence of leukocytosis, white blood cell count was 7.0, hemoglobin was 10.2 coagulation profile was within normal limits. Patient had evidence of acute kidney injury with a BUN of 657 and creatinine of 2.35, potassium of 6.1, and sodium of 136, BNP was 21,200, and troponin was negative 1. Patient had been oliguric, and urinalysis positive for signs of UTI. Patient was also hypotensive, was given a fluid bolus, and her potassium was treated with the 50% dextrose and insulin, however on this morning's labs potassium is persistently 6.2, nephrology has been consulted, Kayexalate has been given, chest x-ray shows increased density at the lung bases, blunting the costophrenic angles, central vascularity and interstitial or increased changes consistent with congestive heart failure and small pleural effusions. SHe received a dose of IV Lasix, she started making small amounts of urine, however neurologically she is increasingly more unresponsive, and subsequent blood gases showed worsening hypercapnic respiratory failure, with pH of 7.28, and pCO2 of 82, and this was done on BiPAP support with pressures of 12 and 6 and FiO2 of 30%. BiPAP settings were then changed to 16/6 and FiO2 of 30% and patient was transferred to the intensive care unit. Tatum catheter has been placed, patient being initiated on Lasix drip per nephrology. Repeat urinalysis did not show evidence of infection. Patient has been afebrile. Patient's family member states patient is a DO NOT RESUSCITATE CODE STATUS and she is able to provide proof she has a necessary paperwork at home. For now we will continue supportive treatment, and patient will be monitored closely in the intensive care unit. On 06/23/2019 patient seen in follow-up in the intensive care unit, she remains on BiPAP support with pressures of 16/6, and FiO2 of 30%, she started to open her eyes and respond better, compared to yesterday's exam, yesterday she was on Lasix drip however she became quite hypotensive and anuric, Lasix has been d iscontinued, and patient was initiated on Levothroid, earlier in the day she had been given some IV fluids. This morning she remains on 0.9 at 20, levo fed is at 5 mics per minute. And patient is starting to make amounts of urine in the order of 60 ML per hour, urine culture came back positive for gram-negative bacilli, final cultures pending, blood culture showed no growth, no fever or chills, we'll initiate the patient on empiric antibiotics in the form of Rocephin. Sodium is 133, potassium is 5.7, chloride is 91, CO2 is 38, B1 is 66, creatinine is 2.3, slightly improved renal profile from yesterday, proBNP was elevated at 21,200, and troponin was negative at admission. US of the kidneys showed no evidence of hydronephrosis Chest x-ray has been reviewed still showing changes compatible with CHF exacerbation hilar prominence consistent with pulmonary arterial hypertension. Hemodynamically seems to be slightly improved, no diarrhea, patient had a solid bowel movement yesterday. On 06/24/2019 patient was seen in follow-up in the intensive care unit, she is clinically much improved, she is awake and alert, she is off the BiPAP support, currently on 4 L of oxygen her pulse ox is 95-98%, afebrile, hemodynamically patient is stable, levo fed has been weaned off since yesterday, patient was restarted back on Lasix drip at 5 mg per hour, she is making urine in the order of 200-370 ML per hour. Denies any respiratory difficulty, lung sounds are essentially clear to auscultation, diminished at the bases, no component of chest pain, today's labs have been reviewed, showing no evidence of leukocytosis, was felt was 5.8, hemoglobin is 8.4, sodium is 134, potassium is 4.1, CO2 is 37, chloride is 93, renal profile is improving, BUN is 52, creatinine is 1.74, urine culture was positive for E. coli which was guerra susceptible, Procan acetone level came back slightly elevated at 0.14, and cortisol level was normal at 21. Patient is tolerating regular diet, no nausea, vomiting or diarrhea. On 06/25/2019 patient seen in follow-up in the intensive care unit, she is awake and alert, she is on BiPAP support, with pressures of 16 and 6, and FiO2 of 40%, she is oriented 3, no altered mentation, answering questions appropriately, denies any respiratory distress. We will switch her to nasal cannula this morning, yesterday patient tolerated nasal cannula trials well, was placed on BiPAP support overnight, she is afebrile, she is on Rocephin for empiric antibiotic coverage evidence of E. coli infection in the urine. Blood cultures have been negative. Today's chest x-ray has been reviewed showing stable diffuse pleural parenchymal changes pleural effusions bilaterally, and bibasilar infiltrates, and diffuse interstitial pattern, changes compatible with CHF. Patient remains on Lasix drip at 10 mg per hour, 0.9 normal saline at a rate of 20 ML per hour. Today's labs have been reviewed. Blood blood cell count 6.3, hemoglobin is 8.9, sodium is 136, potassium is 4.2, chloride is 90, CO2 is 39, BUN is 51 and creatinine is 1.67, renal profile slightly improved. Patient is in negative fluid balance, her weight is down by 6.7 kg last 24 hours, patient has plus lower extremity edema on physical examination, lung sounds are clear On 06/27/2019 patient seen in follow-up on medical surgical floor. She has been transitioned to Airvo from BiPAP support, currently on 45 L/m or FiO2 of 40%, she states she is tolerating it very well, she likes it better than the BiPAP, she is awake and alert, no altered mentation, answering questions appropriately, she states she would like to get up and walk rhonchi, however she has any movement been up in the chair yet, she is generally weak, but no acute complaints, no fever or chills, hemodynamically she is stable, she remains on Lasix drip currently at 10 mg per hour, she is in negative for thousand and 50 ML over last 24 hours, we'll diffuse crackles, and there is some residual 1+ lower extremity edema, chest x-ray still shows changes consistent with congestive heart failure, with improvement, and bilateral pleural effusions. Today's labs have been reviewed, BNP was done only, there is a worsening of metabolic alkalosis, with CO2 up to 46, and a slight worsening of renal profile, with B UN of 41 and creatinine of 1.51, Diamox was added by nephrology, and we will cut back to IV Lasix to 5 mg per hour. On 06/28/2019 and seeing this patient for a follow-up. I noted the events that occurred over this past few days. The patient has been diuresed aggressively and the patient is improved. This morning she was on 35 L/m of high flow oxygen and I was able to cut her down to 5 L per minute nasal cannula. The patient is still producing excellent urine output. Her Lasix drip is running at 5 mg an hour. Lower extremity edema is also improving. The chest x-ray from yesterday was consistent with CHF with small bilateral pleural effusions. Otherwise, the patient is responding to treatment. BUN is at 45 with a creatinine of 1.5 and a serum bicarb level of 43 and the patient is on Diamox regarding diabetes and just metabolic alkalosis. The patient is also on long-term and to coagulation with Eliquis regarding her atrial fibrillation. She is receiving IV Rocephin regarding an E. coli urinary tract infection. Objective - Vital Signs Vital signs: Vital Signs Temp 98 F 06/28/19 15:00 Pulse 73 06/28/19 15:00 Resp 12 06/28/19 15:00 BP 120/66 06/28/19 15:00 Pulse Ox 100 06/28/19 15:00 Intake & Output 06/27/19 06/28/19 06/28/19 18:59 06:59 18:59 Intake Total 606.833 100 Output Total 3200 3100 Balance -2593.167 -3000 Weight 96 kg Intake: Intake, IV Titration 66.833 100 Amount Furosemide 100 mg In 66.833 100 Sodium Chloride 0.9% 90 ml @ 5 MG/HR 5 mls/hr IV .Q20H [facility] Rx#:[id number] Oral 540 Output: Urine 3200 3100 Other: Voiding Method Indwelling Catheter Indwelling Catheter Indwelling Catheter # Voids 1 # Bowel Movements 1 - Exam GENERAL EXAM: Alert and oriented 3 78-year-old white female, Airvo at 45 l/min, and FiO2 40% wakes up to verbal stimuli, and tries to provide simple verbal answers HEAD: Normocephalic/atraumatic. EYES: Normal reaction of pupils, equal size. Conjunctiva pink, sclera white. NOSE: Clear with pink turbinates. THROAT: No erythema or exudates. NECK: No masses, no JVD, no thyroid enlargement, no adenopathy. CHEST: No chest wall deformity. Symmetrical expansion. LUNGS: Equal air entry with diffuse crackles, but no wheeze, rhonchi or dullness. CVS: Regular rate and rhythm, normal S1 and S2, no gallops, no murmurs, no rubs ABDOMEN: Soft, nontender. No hepatosplenomegaly, normal bowel sounds, no guardi ng or rigidity. EXTREMITIES: No clubbing, no edema, no cyanosis, 2+ pulses and upper and lower extremities. MUSCULOSKELETAL: Muscle strength and tone normal. SPINE: No scoliosis or deformity SKIN: No rashes CENTRAL NERVOUS SYSTEM: Alert, oriented 3, and No focal deficits, tone is normal in all 4 extremities. - Labs CBC & Chem 7: 06/28/19 06:54 06/28/19 06:54 Labs: Abnormal Lab Results - Last 24 Hours (Table) 06/27/19 06/27/19 06/28/19 Range/Units 17:36 20:44 06:54 RBC (3.80-5.40) m/uL Hgb (11.4-16.0) gm/dL Hct (34.0-46.0) % Sodium 135 L (137-145) mmol/L Potassium 3.4 L (3.5-5.1) mmol/L Chloride 81 L (98-107) mmol/L Carbon Dioxide 43 H* (22-30) mmol/L BUN 45 H (7-17) mg/dL Creatinine 1.55 H (0.52-1.04) mg/dL Glucose 200 H (74-99) mg/dL POC Glucose (mg/dL) 362 H 327 H (75-99) mg/dL 06/28/19 06/28/19 06/28/19 Range/Units 06:54 07:04 11:27 RBC 3.38 L (3.80-5.40) m/uL Hgb 11.0 L (11.4-16.0) gm/dL Hct 33.6 L (34.0-46.0) % Sodium (137-145) mmol/L Potassium (3.5-5.1) mmol/L Chloride (98-107) mmol/L Carbon Dioxide (22-30) mmol/L BUN (7-17) mg/dL Creatinine (0.52-1.04) mg/dL Glucose (74-99) mg/dL POC Glucose (mg/dL) 226 H 303 H (75-99) mg/dL Microbiology - Last 24 Hours (Table) 06/21/19 11:37 Blood Culture - Final Blood No Growth after 144 hours Assessment and Plan Plan: #1. Acute hypoxic and hypercapnic respiratory failure related to acute exacerbation of CHF, with moderately impaired left ventricle systolic function of 40-45%. The patient was in a significant positive fluid overload and the neck fluid balance has been negative over the past several days and the patient is diuresing very well for now. The patient developed some metabolic alkalosis related to diuresis. The patient is still on Lasix at 5 mg an hour. #2. Urinary tract infection related to E. coli which was guerra susceptible, septic shock #3. Mild periprosthetic regurgitation of the bioprosthetic aortic valve, [id number] mitral regurgitation, and moderate pulmonary hypertension of 57.4 mmHg PA systolic #4. Acute kidney injury #5. Hyperkalemia, improving #6. Diabetes mellitus #7. Recent discharge from subacute rehab following a prolonged hospitalization for severe gastroenteritis, hypovolemic shock, acute kidney injury #8. History of aortic valve disease and previous replacement #9. Secondary pulmonary hypertension #10. Chronic atrial fibrillation ,currently rate is controlled and the patient on long-term and to coagulation with Eliquis. #11. Parkinson's disease #12. Episodes of altered mental status requiring BiPAP support for hypercapnic respiratory failure during previous admission, and neurologic workup was negative #13. Hypothyroidism #14. Hyperlipidemia #15. Type 2 diabetes #16. History of coronary artery disease and previous bypass grafting #17. Metabolic alkalosis likely related to IV diuretics Plan Continue diuresis for another 24 hours. Monitor electrolytes. Monitor metabolic alkalosis. Continue the Lasix 5 mg an hour. Continue Diamox. Continue IV Rocephin. The patient will be taken off the high flow oxygen and she will be placed on 5 L of oxygen by nasal cannula. Monitor the pulse ox. Physical therapy. Encourage the use of incentive spirometer. Continue anticoagulation. We'll continue to follow.
--- NOTE | 2019-06-28 16:18 | PN ---
PROGRESS NOTE Patient is seen for followup for acute kidney injury. Currently she is fairly stable with serum creatinine staying at 1.5 for the last 2 days. The patient is maintained on Lasix drip at 5 mg an hour. Her urine output for 24 hours was about 8 L. I am not sure this is accurate. Her weight is the same as 96 kg. PHYSICAL EXAMINATION: On examination, patient is comfortable, not in any acute distress. Blood pressure is 120/66, heart rate 73 per minute. She is afebrile. Examination of the heart S1, S2. Examination of the lungs, decreased breath sounds at bases abdomen is soft, nontender. Examination of lower extremities shows edema 1+ bilaterally. LABS SHOW: Sodium 135, potassium 3.4, CO2 is 43, BUN 45, creatinine 1.5 mg/dL, hemoglobin 11.0 g/dL. ASSESSMENT: 1. Acute kidney injury secondary to cardiorenal syndrome. Serum creatinine staying at about 1.5 for the last couple of days, maintained on Lasix drip which we can switch to IV push Lasix starting today. 2. Volume overload currently improved. 3. Urinary tract infection with Escherichia coli. 4. Congestive heart failure systolic. 5. Cardiomyopathy ejection fraction 40%. 6. Hyponatremia which is hypervolemic now improved. 7. Metabolic alkalosis, maintained on Diamox, currently improved. PLAN: Discontinue Lasix drip. Switch to IV push Lasix 40 mg IV q.12 hours. Repeat labs in a.m. MMNATASHAL / JEREMYN: [id number] /
[2019-06-28] MEDS: HYDROPHILIC CREAM 180 GM TUBE TOPICAL SCH (17:02)
[2019-06-28 17:06] LABS: Glucose,Whole Blood 213 mg/dL (75-99)
[2019-06-28 19:41] LABS: ABG Base Excess 15.5 mmol/L; ABG Oxygen Saturation 97.7 % (94-97); ABG PCO2 58 mmHg (35-45); ABG PH 7.44 (7.35-7.45); ABG PO2 95 mmHg (83-108); ABG TCO2 41 mmol/L (19-24); Allen Test Performed? Yes
[2019-06-28 19:44] LABS: ABG HCO3 40 mmol/L (21-25)
[2019-06-28 20:55] LABS: Glucose,Whole Blood 285 mg/dL (75-99)
[2019-06-28] MEDS: ATORVASTATIN 10 MG TAB PO SCH (22:40)
[2019-06-28] MEDS: FUROSEMIDE 10 MG/ML 4 ML VIAL IV SCH (22:40)
[2019-06-28] MEDS: SODIUM CHLORIDE 0.9% 1,000 ML IV SCH (22:43)
[2019-06-28 22:48] LABS: Glucose,Whole Blood 339 mg/dL (75-99)
[2019-06-29] MEDS: LEVOTHYROXINE 112 MCG TAB PO SCH (05:52)
[2019-06-29 07:24] LABS: Basophils # (A) 0.1 k/uL (0-0.2); Basophils % (A) 1 %; Eosinophils # (A) 0.3 k/uL (0-0.7); Eosinophils % (A) 2 %; HCT 34.2 % (34.0-46.0); HGB 10.9 gm/dL (11.4-16.0); Hypochromasia Slight; Lymphocytes # (A) 1.3 k/uL (1.0-4.8); Lymphocytes % (A) 10 %; MCH 31.8 pg (25.0-35.0); MCHC 31.7 g/dL (31.0-37.0); MCV 100.2 fL (80.0-100.0); Macrocytosis Slight; Mean Platelet Volume 6.4; Monocytes # (A) 0.8 k/uL (0-1.0); Monocytes % (A) 6 %; Neutrophils # (A) 10.7 k/uL (1.3-7.7); Neutrophils % (A) 80 %; Platelet Count 374 k/uL (150-450); RBC 3.41 m/uL (3.80-5.40); RDW 13.9 % (11.5-15.5); WBC 13.3 k/uL (3.8-10.6)
[2019-06-29 07:41] LABS: Glucose,Whole Blood 196 mg/dL (75-99)
[2019-06-29 07:55] LABS: Calcium 9.7 mg/dL (8.4-10.2); Magnesium 2.2 mg/dL (1.6-2.3)
[2019-06-29] MEDS: CARBIDOPA-LEVODOPA 25-100 MG 1 EACH TAB PO SCH ×4 (08:18→21:34)
[2019-06-29] MEDS: PANTOPRAZOLE 40 MG TABLET PO SCH (08:18)
[2019-06-29] MEDS: ASPIRIN 81 MG PO SCH (08:18)
[2019-06-29] MEDS: INSULIN ASPART (NovoLOG) 100 UNIT/ML VIAL SQ SCH ×7 (08:18→21:34)
[2019-06-29] MEDS: APIXABAN 2.5 MG TABLET PO SCH ×2 (08:18→21:34)
[2019-06-29] MEDS: acetaZOLAMIDE 250 MG TAB PO SCH ×2 (08:18→17:47)
[2019-06-29] MEDS: METOPROLOL TARTRATE 12.5 MG TAB PO SCH ×2 (08:18→21:34)
[2019-06-29] MEDS: FUROSEMIDE 10 MG/ML 4 ML VIAL IV SCH ×2 (08:20→21:34)
[2019-06-29 12:16] LABS: Glucose,Whole Blood 282 mg/dL (75-99)
[2019-06-29] MEDS: HYDROPHILIC CREAM 180 GM TUBE TOPICAL SCH (12:28)
[2019-06-29] MEDS: ACETAMINOPHEN TAB 325 MG TAB PO PRN ×2 (14:52→21:34)
--- NOTE | 2019-06-29 15:56 | P.PN ---
Subjective Progress Note Date: 06/29/19 Principal diagnosis: Acute hypoxic/hypercapnic respiratory failure secondary to an acute exacerbation of congestive heart failure, systolic This is 78-year-old white female patient of Dr. Bartholomew, with past medical history of chronic atrial fibrillation on anticoagulation, diabetes mellitus, dyslipidemia, hypertension, Parkinson's disease, hypothyroidism, chronic congestive heart failure, coronary artery disease with bypass grafting, previous surgery for aortic valve replacement. Patient presented to the emergency department on 06/21/2019 with complaints of worsening dyspnea and weakness. Patient apparently has a home pulse ox monitor and her pulse ox was in the 70s and 80s. Patient was recently hospitalized in April of this year with acute gastroenteritis of unknown etiology, and patient was critically ill during that admission with evidence of acute lactic acidosis, acute kidney injury, hypotension and hypovolemic shock, and patient required intensive care admission and monitoring. Patient also developed metabolic encephalopathy, and neurological workup was negative. Patient did develop worsening ascending weakness, and there was concern for possibility of Guillain[place] syndrome, but neurology felt it was unlikely. Patient's diarrhea gradually improved, she was opposed to have colonoscopy in the outpatient setting. Patient clinically improved and was eventually discharged to the [facility] for rehab therapy on 05/27/2019. Completed a course of Zosyn and Flagyl, C. diff screen was negative. During that admission patient did develop acute hypercapnic respiratory failure and generalized weakness of unknown etiology, and required B iPAP support. On 06/21/2019 patient was brought into the emergency department for evaluation of a dyspnea, and worsening weakness. Patient was recently discharged from the subacute rehab facility and was at home. Apparently she tried standing up earlier today and fell sideways, and patient apparently denied hitting injuries to her head. Denied any fever, or chills, denied any night sweats, denied chest pain. Most of the history was obtained from the chart, patient at the time of our evaluation is very difficult to arouse, there is a family member at the bedside who did provide some limited information in terms of her CODE STATUS. On 06/22/2019 we were called by the stepdown nurse taking care of the patient with concern of abnormal blood gases, that showed pO2 of 56, pCO2 of 70, and pH of 7.32. Admission blood work was negative for any evidence of leukocytosis, white blood cell count was 7.0, hemoglobin was 10.2 coagulation profile was within normal limits. Patient had evidence of acute kidney injury with a BUN of 657 and creatinine of 2.35, potassium of 6.1, and sodium of 136, BNP was 21,200, and troponin was negative 1. Patient had been oliguric, and urinalysis positive for signs of UTI. Patient was also hypotensive, was given a fluid bolus, and her potassium was treated with the 50% dextrose and insulin, however on this morning's labs potassium is persistently 6.2, nephrology has been consulted, Kayexalate has been given, chest x-ray shows increased density at the lung bases, blunting the costophrenic angles, central vascularity and interstitial or increased changes consistent with congestive heart failure and small pleural effusions. SHe received a dose of IV Lasix, she started making small amounts of urine, however neurologically she is increasingly more unresponsive, and subsequent blood gases showed worsening hypercapnic respiratory failure, with pH of 7.28, and pCO2 of 82, and this was done on BiPAP support with pressures of 12 and 6 and FiO2 of 30%. BiPAP settings were then changed to 16/6 and FiO2 of 30% and patient was transferred to the intensive care unit. Tatum catheter has been placed, patient being initiated on Lasix drip per nephrology. Repeat urinalysis did not show evidence of infection. Patient has been afebrile. Patient's family member states patient is a DO NOT RESUSCITATE CODE STATUS and she is able to provide proof she has a necessary paperwork at home. For now we will continue supportive treatment, and patient will be monitored closely in the intensive care unit. On 06/23/2019 patient seen in follow-up in the intensive care unit, she remains on BiPAP support with pressures of 16/6, and FiO2 of 30%, she started to open her eyes and respond better, compared to yesterday's exam, yesterday she was on Lasix drip however she became quite hypotensive and anuric, Lasix has been discontinued, and patient was initiated on Levothroid, earlier in the day she had been given some IV fluids. This morning she remains on 0.9 at 20, levo fed is at 5 mics per minute. And patient is starting to make amounts of urine in the order of 60 ML per hour, urine culture came back positive for gram-negative bacilli, final cultures pending, blood culture showed no growth, no fever or chills, we'll initiate the patient on empiric antibiotics in the form of Rocephin. Sodium is 133, potassium is 5.7, chloride is 91, CO2 is 38, B1 is 66, creatinine is 2.3, slightly improved renal profile from yesterday, proBNP was elevated at 21,200, and troponin was negative at admission. US of the kidneys showed no evidence of hydronephrosis Chest x-ray has been reviewed still showing changes compatible with CHF exacerbation hilar prominence consistent with pulmonary arterial hypertension. Hemodynamically seems to be slightly improved, no diarrhea, patient had a solid bowel movement yesterday. On 06/24/2019 patient was seen in follow-up in the intensive care unit, she is clinically much improved, she is awake and alert, she is off the BiPAP support, currently on 4 L of oxygen her pulse ox is 95-98%, afebrile, hemodynamically patient is stable, levo fed has been weaned off since yesterday, patient was restarted back on Lasix drip at 5 mg per hour, she is making urine in the order of 200-370 ML per hour. Denies any respiratory difficulty, lung sounds are essentially clear to auscultation, diminished at the bases, no component of chest pain, today's labs have been reviewed, showing no evidence of leukocytosis, was felt was 5.8, hemoglobin is 8.4, sodium is 134, potassium is 4.1, CO2 is 37, chloride is 93, renal profile is improving, BUN is 52, creatinine is 1.74, urine culture was positive for E. coli which was guerra susceptible, Procan acetone level came back slightly elevated at 0.14, and cortisol level was normal at 21. Patient is tolerating regular diet, no nausea, vomiting or diarrhea. On 06/25/2019 patient seen in follow-up in the intensive care unit, she is awake and alert, she is on BiPAP support, with pressures of 16 and 6, and FiO2 of 40%, she is oriented 3, no altered mentation, answering questions appropriately, denies any respiratory distress. We will switch her to nasal cannula con flores, yesterday patient tolerated nasal cannula trials well, was placed on BiPAP support overnight, she is afebrile, she is on Rocephin for empiric antibiotic coverage evidence of E. coli infection in the urine. Blood cultures have been negative. Today's chest x-ray has been reviewed showing stable diffuse pleural parenchymal changes pleural effusions bilaterally, and bibasilar infiltrates, and diffuse interstitial pattern, changes compatible with CHF. Patient remains on Lasix drip at 10 mg per hour, 0.9 normal saline at a rate of 20 ML per hour. Today's labs have been reviewed. Blood blood cell count 6.3, hemoglobin is 8.9, sodium is 136, potassium is 4.2, chloride is 90, CO2 is 39, BUN is 51 and creatinine is 1.67, renal profile slightly improved. Patient is in negative fluid balance, her weight is down by 6.7 kg last 24 hours, patient has plus lower extremity edema on physical examination, lung sounds are clear On 06/27/2019 patient seen in follow-up on medical surgical floor. She has been transitioned to Airvo from BiPAP support, currently on 45 L/m or FiO2 of 40%, she states she is tolerating it very well, she likes it better than the BiPAP, she is awake and alert, no altered mentation, answering questions appropriately, she states she would like to get up and walk rhonchi, however she has any movement been up in the chair yet, she is generally weak, but no acute com plaints, no fever or chills, hemodynamically she is stable, she remains on Lasix drip currently at 10 mg per hour, she is in negative for thousand and 50 ML over last 24 hours, we'll diffuse crackles, and there is some residual 1+ lower extremity edema, chest x-ray still shows changes consistent with congestive heart failure, with improvement, and bilateral pleural effusions. Today's labs have been reviewed, BNP was done only, there is a worsening of metabolic alkalosis, with CO2 up to 46, and a slight worsening of renal profile, with B UN of 41 and creatinine of 1.51, Diamox was added by nephrology, and we will cut back to IV Lasix to 5 mg per hour. On 06/28/2019 and seeing this patient for a follow-up. I noted the events that occurred over this past few days. The patient has been diuresed aggressively and the patient is improved. This morning she was on 35 L/m of high flow oxygen and I was able to cut her down to 5 L per minute nasal cannula. The patient is still producing excellent urine output. Her Lasix drip is running at 5 mg an hour. Lower extremity edema is also improving. The chest x-ray from yesterday was consistent with CHF with small bilateral pleural effusions. Otherwise, the patient is responding to treatment. BUN is at 45 with a creatinine of 1.5 and a serum bicarb level of 43 and the patient is on Diamox regarding diabetes and just metabolic alkalosis. The patient is also on long-term and to coagulation with Eliquis regarding her atrial fibrillation. She is receiving IV Rocephin regarding an E. coli urinary tract infection. The patient is seen today 06/29/2019 in follow-up on the regular medical floor. She is currently awake and alert in no acute distress. She is down to 4 L high flow nasal cannula. She is improving daily. O2 saturations in the high 90s. She's afebrile. Hemodynamically stable. White count 13.3. Hemoglobin 10.9. Creatinine 1.68. She is currently on Lasix 40 mg every 12 hours. Antibiotics in the form of ceftriaxone. Objective - Vital Signs Vital signs: Vital Signs Temp 98.2 F 06/29/19 15:00 Pulse 73 06/29/19 15:00 Resp 22 06/29/19 15:00 BP 127/68 06/29/19 15:00 Pulse Ox 100 06/29/19 15:00 Intake & Output 06/28/19 06/29/19 06/29/19 18:59 06:59 18:59 Intake Total 160 Output Total 1300 1525 700 Balance -1140 -1525 -700 Weight 96 kg 71.5 kg Intake: IV 160 Sodium Chloride 0.9% 1, 160 000 ml @ 20 mls/hr IV . Q24H [facility] Rx#:[id number] Output: Urine 1300 1525 700 Other: Voiding Method Indwelling Catheter Indwelling Catheter Indwelling Catheter # Bowel Movements 1 1 - Exam GENERAL EXAM: Alert and oriented 3 78-year-old white female, on 4 L/m per nasal cannula. HEAD: Normocephalic/atraumatic. EYES: Normal reaction of pupils, equal size. Conjunctiva pink, sclera white. NOSE: Clear with pink turbinates. THROAT: No erythema or exudates. NECK: No masses, no JVD, no thyroid enlargement, no adenopathy. CHEST: No chest wall deformity. Symmetrical expansion. LUNGS: Equal air entry with diffuse crackles, but no wheeze, rhonchi or dullness. CVS: Regular rate and rhythm, normal S1 and S2, no gallops, no murmurs, no rubs ABDOMEN: Soft, nontender. No hepatosplenomegaly, normal bowel sounds, no guarding or rigidity. EXTREMITIES: No clubbing, no edema, no cyanosis, 2+ pulses and upper and lower extremities. MUSCULOSKELETAL: Muscle strength and tone normal. SPINE: No scoliosis or deformity SKIN: No rashes CENTRAL NERVOUS SYSTEM: Alert, oriented 3, and No focal deficits, tone is normal in all 4 extremities. - Labs CBC & Chem 7: 06/29/19 06:29 06/29/19 06:29 Labs: Abnormal Lab Results - Last 24 Hours (Table) 06/28/19 06/28/19 06/28/19 Range/Units 16:54 19:38 20:43 WBC (3.8-10.6) k/uL RBC (3.80-5.40) m/uL Hgb (11.4-16.0) gm/dL MCV (80.0-100.0) fL Neutrophils # (1.3-7.7) k/uL ABG pCO2 58 H (35-45) mmHg ABG HCO3 40 H* (21-25) mmol/L ABG Total CO2 41 H (19-24) mmol/L ABG O2 Saturation 97.7 H (94-97) % Sodium (137-145) mmol/L Chloride (98-107) mmol/L Carbon Dioxide (22-30) mmol/L BUN (7-17) mg/dL Creatinine (0.52-1.04) mg/dL Glucose (74-99) mg/dL POC Glucose (mg/dL) 213 H 285 H (75-99) mg/dL 06/28/19 06/29/19 06/29/19 Range/Units 22:37 06:29 06:29 WBC 13.3 H (3.8-10.6) k/uL RBC 3.41 L (3.80-5.40) m/uL Hgb 10.9 L (11.4-16.0) gm/dL MCV 100.2 H (80.0-100.0) fL Neutrophils # 10.7 H (1.3-7.7) k/uL ABG pCO2 (35-45) mmHg ABG HCO3 (21-25) mmol/L ABG Total CO2 (19-24) mmol/L ABG O2 Saturation (94-97) % Sodium 136 L (137-145) mmol/L Chloride 84 L (98-107) mmol/L Carbon Dioxide 40 H (22-30) mmol/L BUN 53 H (7-17) mg/dL Creatinine 1.68 H (0.52-1.04) mg/dL Glucose 158 H (74-99) mg/dL POC Glucose (mg/dL) 339 H (75-99) mg/dL 06/29/19 06/29/19 Range/Units 07:29 12:04 WBC (3.8-10.6) k/uL RBC (3.80-5.40) m/uL Hgb (11.4-16.0) gm/dL MCV (80.0-100.0) fL Neutrophils # (1.3-7.7) k/uL ABG pCO2 (35-45) mmHg ABG HCO3 (21-25) mmol/L ABG Total CO2 (19-24) mmol/L ABG O2 Saturation (94-97) % Sodium (137-145) mmol/L Chloride (98-107) mmol/L Carbon Dioxide (22-30) mmol/L BUN (7-17) mg/dL Creatinine (0.52-1.04) mg/dL Glucose (74-99) mg/dL POC Glucose (mg/dL) 196 H 282 H (75-99) mg/dL Assessment and Plan Assessment: #1. Acute hypoxic and hypercapnic respiratory failure related to acute exacerbation of CHF, with moderately impaired left ventricle systolic function of 40-45% The patient was in a significant positive fluid overload and the neck fluid balance has been negative over the past several days and the patient is diuresing very well for now. The patient developed some metabolic alkalosis related to diuresis. The patient is still on Lasix at 40 mg IV every 12 hours. Improved. Down to 4 L nasal cannula. #2. Urinary tract infection related to E. coli which was guerra susceptible, septic shock #3. Mild periprosthetic regurgitation of the bioprosthetic aortic valve, [id number] mitral regurgitation, and moderate pulmonary hypertension of 57.4 mmHg PA systolic #4. Acute kidney injury #5. Hyperkalemia, improving #6. Diabetes mellitus #7. Recent discharge from subacute rehab following a prolonged hospitalization for severe gastroenteritis, hypovolemic shock, acute kidney injury #8. History of aortic valve disease and previous replacement #9. Secondary pulmonary hypertension #10. Chronic atrial fibrillation ,currently rate is controlled and the patient on long-term and to coagulation with Eliquis. #11. Parkinson's disease #12. Episodes of altered mental status requiring BiPAP support for hypercapnic respiratory failure during previous admission, and neurologic workup was negative #13. Hypothyroidism #14. Hyperlipidemia #15. Type 2 diabetes #16. History of coronary artery disease and previous bypass grafting #17. Metabolic alkalosis likely related to IV diuretics Plan: The patient was seen and evaluated. She is improved today and down to 4 L nasal cannula. Her daughter is at the bedside. She is considering palliative care. She like to get the patient home. Discharge planning is in place. I, the cosigning physician, performed a history & physical examination of the patient. Lungs sounds with crackles in the bilateral posterior bases. Maintaining good O2 saturations in the 90s on 4 L/m per nasal cannula. I discussed the assessment and plan of care with my nurse practitioner, Kristan Kingsley. I attest to the above note as dictated by her.
[2019-06-29 17:01] LABS: Glucose,Whole Blood 264 mg/dL (75-99)
--- NOTE | 2019-06-29 17:49 | P.PN ---
Subjective Progress Note Date: 06/29/19 (delayed charting seen at 1145) Principal diagnosis: weakness Patient is a 78-year-old female patient of Dr. Peacock with a past medical history of A. fib on anticoagulation, diabetes, dyslipidemia, hypertension, Parkinson's disease, congestive heart failure, and multiple other comorbid conditions were initially presented to the emergency department with complaints of dyspnea and weakness. Apparently her home pulse ox was in between the 70s to 80s. Patient had recently been in a subacute rehab facility after suffering from gastroenteritis and was recently discharged home. In the ER she was noted to have acute kidney injury and chronic kidney disease, mildly eleva patricia lactic acid, and I'll dated BNP at 21,200. She was admitted secondary to acute on chronic congestive heart failure with hyperkalemia. Cardiology, pulmonary, and nephrology was consulted. She was admitted to the cardiac unit. On 06/22 pulmonary was called to the cardiac stepdown unit secondary to abnormal blood gases. Secondary to her hypercapnia she was started on BiPAP. She was determined to be a DO NOT RESUSCITATE. She was transferred to the incident care unit for closer monitoring. She did have some improvement in her potassium. She continued to required BiPAP. She required to be initiated on Levophed secondary to persistent hypotension. She was started on a Lasix drip to help with anuria and continued fluid overload in conjunction with hypotension. She was found to have urine cultures positive for gram-negative bacilli. These ultimately resulted as pansensitive E. coli and she was maintained on Rocephin until she completed IV antibiotic therapy. By 06/24 she was off of BiPAP support and levo. However she was unable to tolerate being of Bipap. She been restarted back on her Lasix drip. Her Lasix drip was uptitrated. On 06/27 she was able to be transitioned to ARVO and was transferred to the medical floor. She was able to come of lasix drip on 06/28. Case was discussed with daughter who agreed to palliative care. Patient seen and examined at bedside. She blames this to being tired. She states that her breathing is better. She denies any nausea or vomiting. Objective - Vital Signs Vital signs: Vital Signs Temp 98.2 F 06/29/19 15:00 Pulse 73 06/29/19 15:00 Resp 22 06/29/19 15:00 BP 127/68 06/29/19 15:00 Pulse Ox 100 06/29/19 15:00 Intake & Output 06/28/19 06/29/19 06/29/19 18:59 06:59 18:59 Intake Total 160 Output Total 1300 1525 700 Balance -4010 -4191 -700 Weight 96 kg 71.5 kg Intake: IV 160 Sodium Chloride 0.9% 1, 160 000 ml @ 20 mls/hr IV . Q24H [facility] Rx#:[id number] Output: Urine 1300 1525 700 Other: Voiding Method Indwelling Catheter Indwelling Catheter Indwelling Catheter # Bowel Movements 1 1 - Exam General: Ill-appearing, appears older than stated age, obese, no distress, Derm: warm, dry Head: atraumatic, normocephalic, symmetric Eyes: EOMI, no lid lag, anicteric sclera Mouth: no lip lesion, mucus membranes moist Cardiovascular: S1S2 reg, no murmur, positive posterior tibial pulse bilateral, Lungs: Decreased breath sounds bilateral, no rhonchi, no rales , no accessory muscle use Abdominal: soft, nontender to palpation, no guarding, no appreciable organomegaly Ext: no gross muscle atrophy, pitting edema bilateral lower extremities, no contractures Neuro: CN II-XI grossly intact, no focal neuro deficits Psych: Alert, oriented, lethargic and falls back asleep easily, appropriate affect - Labs CBC & Chem 7: 06/29/19 06:29 06/29/19 06:29 Labs: Abnormal Lab Results - Last 24 Hours (Table) 06/28/19 06/28/19 06/28/19 Range/Units 19:38 20:43 22:37 WBC (3.8-10.6) k/uL RBC (3.80-5.40) m/uL Hgb (11.4-16.0) gm/dL MCV (80.0-100.0) fL Neutrophils # (1.3-7.7) k/uL ABG pCO2 58 H (35-45) mmHg ABG HCO3 40 H* (21-25) mmol/L ABG Total CO2 41 H (19-24) mmol/L ABG O2 Saturation 97.7 H (94-97) % Sodium (137-145) mmol/L Chloride (98-107) mmol/L Carbon Dioxide (22-30) mmol/L BUN (7-17) mg/dL Creatinine (0.52-1.04) mg/dL Glucose (74-99) mg/dL POC Glucose (mg/dL) 285 H 339 H (75-99) mg/dL 06/29/19 06/29/19 06/29/19 Range/Units 06:29 06:29 07:29 WBC 13.3 H (3.8-10.6) k/uL RBC 3.41 L (3.80-5.40) m/uL Hgb 10.9 L (11.4-16.0) gm/dL MCV 100.2 H (80.0-100.0) fL Neutrophils # 10.7 H (1.3-7.7) k/uL ABG pCO2 (35-45) mmHg ABG HCO3 (21-25) mmol/L ABG Total CO2 (19-24) mmol/L ABG O2 Saturation (94-97) % Sodium 136 L (137-145) mmol/L Chloride 84 L (98-107) mmol/L Carbon Dioxide 40 H (22-30) mmol/L BUN 53 H (7-17) mg/dL Creatinine 1.68 H (0.52-1.04) mg/dL Glucose 158 H (74-99) mg/dL POC Glucose (mg/dL) 196 H (75-99) mg/dL 06/29/19 06/29/19 Range/Units 12:04 16:41 WBC (3.8-10.6) k/uL RBC (3.80-5.40) m/uL Hgb (11.4-16.0) gm/dL MCV (80.0-100.0) fL Neutrophils # (1.3-7.7) k/uL ABG pCO2 (35-45) mmHg ABG HCO3 (21-25) mmol/L ABG Total CO2 (19-24) mmol/L ABG O2 Saturation (94-97) % Sodium (137-145) mmol/L Chloride (98-107) mmol/L Carbon Dioxide (22-30) mmol/L BUN (7-17) mg/dL Creatinine (0.52-1.04) mg/dL Glucose (74-99) mg/dL POC Glucose (mg/dL) 282 H 264 H (75-99) mg/dL Assessment and Plan Assessment: Acute exacerbation of congestive heart failure, systolic with ejection fraction 40-45% -Continue with Lasix IV push twice daily -Continue with Lopressor -Not on an DEBBIE inhibitor and we'll not start secondary to HPI and hyperkalemia on admission -Strict I's and O's -Daily weights -Nephrology and cardiology recommendations Metabolic alkalosis likely secondary to forced diuresis -On Diamox -Bicarb improving -Follow BMP Acute hypoxic respiratory failure secondary to above E. coli urinary tract infection with septic shock -On Rocephin. Will complete 7 days of therapy tomorrow. Leukocytosis -Undetermined etiology -Likely stress-induced -Monitor for increasing fevers -Repeat CBC in a.m. Chronic atrial fibrillation -On Eliquis -Continue beta vale -Follow heart rate -Off amiodarone per cardiology Diabetes mellitus type 2 -Continue with fixed dose insulin sliding scale insulin, start levemir -Follow blood sugars -Glucotrol and metformin on hold Chronic debility -Palliative care on discharge Anemia, undetermined etiology -Slightly downtrending -Outpatient evaluation Chronic: Prosthetic aortic valve Secondary pulmonary hypertension Parkinson's disease Hypothyroidism Dyslipidemia Coronary artery disease status post bypass grafting Resolved: Hypokalemia Hyperkalemia Acute kidney injury Past metabolic encephalopathy secondary to hypercapnia DVT prophylaxis: SCDs Discussed with: Patient Anticipated discharge: 1-[address]: home A total of 35 minutes was spent on the care of this complex patient more than 50% of the time was spent in counseling and care coordination.
[2019-06-29] MEDS: INSULIN DETEMIR (LEVEMIR) 100 UNIT/ML SYR SQ SCH (21:34)
[2019-06-29] MEDS: ATORVASTATIN 10 MG TAB PO SCH (21:34)
[2019-06-29 21:40] LABS: Glucose,Whole Blood 239 mg/dL (75-99)
[2019-06-29] MEDS: SODIUM CHLORIDE 0.9% 1,000 ML IV SCH (22:44)
--- NOTE | 2019-06-29 22:46 | PN ---
PROGRESS NOTE Patient is seen for followup for acute kidney injury. She is currently being diuresed. Lasix is at 40 mg IV q.12 hours. The patient has had good urine output. EXAMINATION: Today, blood pressure was 155/90, heart rate 74 per minute. She is afebrile. Examination of the heart S1, S2. Examination of the lungs, decreased breath sounds at bases. Abdomen is soft, nontender. Examination of lower extremities shows trace edema bilaterally. LABS: Show sodium 136, potassium 4.0. BUN 53, serum creatinine 1.6, hemoglobin 10.9 g/dL. ASSESSMENT: 1. Acute kidney injury secondary to cardiorenal syndrome. Serum creatinine slightly high. Patient is currently off Lasix drip. I will switch her to p.o. Lasix starting tomorrow. 2. Volume overload now improved. 3. Urinary tract infection with Escherichia coli. 4. Cardiomyopathy ejection fraction 40%. 5. Acute on chronic congestive heart failure, mainly systolic. 6. Metabolic alkalosis secondary to diuresis maintained on Diamox, currently improving. PLAN: Change Lasix to 40 mg p.o. b.i.d. starting tomorrow. Repeat labs in a.m. MMODL / IJN: [id number] /
[2019-06-30] MEDS: LEVOTHYROXINE 112 MCG TAB PO SCH (05:10)
[2019-06-30 07:19] LABS: Glucose,Whole Blood 161 mg/dL (75-99)
[2019-06-30] MEDS: PANTOPRAZOLE 40 MG TABLET PO SCH (08:09)
[2019-06-30] MEDS: CARBIDOPA-LEVODOPA 25-100 MG 1 EACH TAB PO SCH ×4 (08:09→22:06)
[2019-06-30] MEDS: FUROSEMIDE 40 MG TAB PO SCH ×2 (08:09→17:15)
[2019-06-30] MEDS: ASPIRIN 81 MG PO SCH (08:09)
[2019-06-30] MEDS: INSULIN ASPART (NovoLOG) 100 UNIT/ML VIAL SQ SCH ×7 (08:10→22:06)
[2019-06-30] MEDS: APIXABAN 2.5 MG TABLET PO SCH ×2 (08:10→22:06)
[2019-06-30] MEDS: METOPROLOL TARTRATE 12.5 MG TAB PO SCH ×2 (08:10→22:06)
[2019-06-30] MEDS: HYDROPHILIC CREAM 180 GM TUBE TOPICAL SCH (08:11)
[2019-06-30] MEDS: acetaZOLAMIDE 250 MG TAB PO SCH ×2 (08:15→17:14)
[2019-06-30 08:31] LABS: HGB 10.4 gm/dL (11.4-16.0); Hypochromasia Slight; MCH 30.8 pg (25.0-35.0); MCHC 30.7 g/dL (31.0-37.0); MCV 100.5 fL (80.0-100.0); Macrocytosis Slight; Mean Platelet Volume 6.5; Platelet Count 348 k/uL (150-450); RBC 3.38 m/uL (3.80-5.40); WBC 9.2 k/uL (3.8-10.6)
[2019-06-30 08:37] LABS: Calcium 9.6 mg/dL (8.4-10.2); Magnesium 2.4 mg/dL (1.6-2.3); Potassium 3.7 mmol/L (3.5-5.1)
--- NOTE | 2019-06-30 11:54 | P.PN ---
Subjective Progress Note Date: 06/30/19 Principal diagnosis: weakness Patient is a 78-year-old female patient of Dr. Peacock with a past medical history of A. fib on anticoagulation, diabetes, dyslipidemia, hyperte nsion, Parkinson's disease, congestive heart failure, and multiple other comorbid conditions were initially presented to the emergency department with complaints of dyspnea and weakness. Apparently her home pulse ox was in between the 70s to 80s. Patient had recently been in a subacute rehab facility after suffering from gastroenteritis and was recently discharged home. In the ER she was noted to have acute kidney injury and chronic kidney disease, mildly elevated lactic acid, and I'll dated BNP at 21,200. She was admitted secondary to acute on chronic congestive heart failure with hyperkalemia. Cardiology, pulmonary, and nephrology was consulted. She was admitted to the cardiac unit. On 06/22 pulmonary was called to the cardiac stepdown unit secondary to abnormal blood gases. Secondary to her hypercapnia she was started on BiPAP. She was determined to be a DO NOT RESUSCITATE. She was transferred to the incident care unit for closer monitoring. She did have some improvement in her potassium. She continued to required BiPAP. She required to be initiated on Levophed secondary to persistent hypotension. She was started on a Lasix drip to help with anuria and continued fluid overload in conjunction with hypotension. She was found to have urine cultures positive for gram-negative bacilli. These ultimately resulted as pansensitive E. coli and she was maintained on Rocephin until she completed IV antibiotic therapy. By 06/24 she was off of BiPAP support and levo. However she was unable to tolerate being of Bipap. She been restarted back on her Lasix drip. Her Lasix drip was uptitrated. On 06/27 she was able to be transitioned to ARVO and was transferred to the medical floor. She was able to come of lasix drip on 06/28. Case was discussed with daughter who agreed to palliative care. She was doing better by the morning of 06/30 and was awake and sitting up in the chair. Patient seen and examined at bedside. Feeling well today, shortness of breath and edema at baseline. No chest pain, no nausea. Objective - Vital Signs Vital signs: Vital Signs Temp 98 F 06/30/19 07:00 Pulse 71 06/30/19 07:00 Resp 16 06/30/19 07:00 BP 136/55 06/30/19 07:00 Pulse Ox 100 06/30/19 07:00 Intake & Output 06/29/19 06/30/19 06/30/19 18:59 06:59 18:59 Output Total 700 1200 Balance -700 -1200 Weight 82 kg Output: Urine 700 1200 Other: Voiding Method Indwelling Catheter Indwelling Catheter # Voids 1 # Bowel Movements 1 - Exam General: non toxic, appears older than stated age, obese, no distress, Derm: warm, dry Head: atraumatic, normocephalic, symmetric Eyes: EOMI, no lid lag, anicteric sclera Mouth: no lip lesion, mucus membranes moist Cardiovascular: S1S2 reg, no murmur, positive posterior tibial pulse bilateral, Lungs: Decreased breath sounds bilateral, no rhonchi, no rales , no accessory muscle use Abdominal: soft, nontender to palpation, no guarding, no appreciable organomegaly Ext: no gross muscle atrophy, 1+ pitting edema bilateral lower extremities, no contractures Neuro: CN II-XI grossly intact, no focal neuro deficits Psych: Alert, oriented, lethargic and falls back asleep easily, appropriate affect - Labs CBC & Chem 7: 06/30/19 07:06 06/30/19 07:06 Labs: Abnormal Lab Results - Last 24 Hours (Table) 06/29/19 06/29/19 06/29/19 Range/Units 12:04 16:41 21:28 RBC (3.80-5.40) m/uL Hgb (11.4-16.0) gm/dL MCV (80.0-100.0) fL MCHC (31.0-37.0) g/dL Chloride (98-107) mmol/L Carbon Dioxide (22-30) mmol/L BUN (7-17) mg/dL Creatinine (0.52-1.04) mg/dL Glucose (74-99) mg/dL POC Glucose (mg/dL) 282 H 264 H 239 H (75-99) mg/dL Magnesium (1.6-2.3) mg/dL 06/30/19 06/30/19 06/30/19 Range/Units 07:06 07:06 07:07 RBC 3.38 L (3.80-5.40) m/uL Hgb 10.4 L (11.4-16.0) gm/dL MCV 100.5 H (80.0-100.0) fL MCHC 30.7 L (31.0-37.0) g/dL Chloride 86 L (98-107) mmol/L Carbon Dioxide 40 H (22-30) mmol/L BUN 60 H (7-17) mg/dL Creatinine 1.77 H (0.52-1.04) mg/dL Glucose 147 H (74-99) mg/dL POC Glucose (mg/dL) 161 H (75-99) mg/dL Magnesium 2.4 H (1.6-2.3) mg/dL Assessment and Plan Assessment: Acute exacerbation of congestive heart failure, systolic with ejection fraction 40-45% -Lasix PO BID and Diamox -Continue with Lopressor -Not on an DEBBIE inhibitor and will not start secondary to HPI and hyperkalemia on admission -Strict I's and O's -Daily weights -Nephrology and cardiology recommendations Patient needs a hospital bed as she is unable to lay flat due to advanced CHF and refractory dyspnea. Metabolic alkalosis likely secondary to forced diuresis -On Diamox -Bicarb improving -Follow BMP Leukocytosis -Undetermined etiology -Likely stress-induced -Monitor for increasing fevers -Repeat CBC in a.m. Chronic atrial fibrillation -On Eliquis -Continue beta vale -Follow heart rate -Off amiodarone per cardiology Diabetes mellitus type 2 -Continue with fixed dose insulin sliding scale insulin, start levemir -Follow blood sugars -Glucotrol and metformin on hold, no metformin on discharge due to creatinine Chronic debility -Palliative care on discharge Anemia, undetermined etiology -Slightly downtrending -Outpatient evaluation Chronic: Prosthetic aortic valve Secondary pulmonary hypertension Parkinson's disease Hypothyroidism Dyslipidemia Coronary artery disease status post bypass grafting Acute hypoxic respiratory failure secondary to above, improved to baseline E. coli urinary tract infection with septic shock, resolved Resolved: Hypokalemia Hyperkalemia Acute kidney injury Past metabolic encephalopathy secondary to hypercapnia DVT prophylaxis: SCDs Discussed with: Patient Anticipated discharge: 1-[address]: home A total of 35 minutes was spent on the care of this complex patient more than 50% of the time was spent in counseling and care coordination.
[2019-06-30 12:24] LABS: Glucose,Whole Blood 321 mg/dL (75-99)
--- NOTE | 2019-06-30 14:06 | P.PN ---
Subjective Progress Note Date: 06/30/19 Principal diagnosis: Acute hypoxic/hypercapnic respiratory failure secondary to an acute exacerbation of congestive heart failure, systolic This is 78-year-old white female patient of Dr. Bartholomew, with past medical history of chronic atrial fibrillation on anticoagulation, diabetes mellitus, dyslipidemia, hypertension, Parkinson's disease, hypothyroidism, chronic congestive heart failure, coronary artery disease with bypass grafting, previous surgery for aortic valve replacement. Patient presented to the emergency department on 06/21/2019 with complaints of worsening dyspnea and weakness. Patient apparently has a home pulse ox monitor and her pulse ox was in the 70s and 80s. Patient was recently hospitalized in April of this year with acute gastroenteritis of unknown etiology, and patient was critically ill during that admission with evidence of acute lactic acidosis, acute kidney injury, hypotension and hypovolemic shock, and patient required intensive care admission and monitoring. Patient also developed metabolic encephalopathy, and neurological workup was negative. Patient did develop worsening ascending weakness, and there was concern for possibility of Guillain-Ratcliff syndrome, but neurology felt it was unlikely. Patient's diarrhea gradually improved, she was opposed to have colonoscopy in the outpatient setting. Patient clinically improved and was eventually discharged to the [facility] for rehab therapy on 05/27/2019. Completed a course of Zosyn and Flagyl, C. diff screen was negative. During that admission patient did develop acute hypercapnic respiratory failure and generalized weakness of unknown etiology, and required B iPAP support. On 06/21/2019 patient was brought into the emergency department for evaluation of a dyspnea, and worsening weakness. Patient was recently discharged from the subacute rehab facility and was at home. Apparently she tried standing up earlier today and fell sideways, and patient apparently denied hitting injuries to her head. Denied any fever, or chills, denied any night sweats, denied chest pain. Most of the history was obtained from the chart, patient at the time of our evaluation is very difficult to arouse, there is a family member at the bedside who did provide some limited information in terms of her CODE STATUS. On 06/22/2019 we were called by the stepdown nurse taking care of the patient with concern of abnormal blood gases, that showed pO2 of 56, pCO2 of 70, and pH of 7.32. Admission blood work was negative for any evidence of leukocytosis, white blood cell count was 7.0, hemoglobin was 10.2 coagulation profile was within normal limits. Patient had evidence of acute kidney injury with a BUN of 657 and creatinine of 2.35, potassium of 6.1, and sodium of 136, BNP was 21,200, and troponin was negative 1. Patient had been oliguric, and urinalysis positive for signs of UTI. Patient was also hypotensive, was given a fluid bolus, and her potassium was treated with the 50% dextrose and insulin, however on this morning's labs potassium is persistently 6.2, nephrology has been consulted, Kayexalate has been given, chest x-ray shows increased density at the lung bases, blunting the costophrenic angles, central vascularity and interstitial or increased changes consistent with congestive heart failure and small pleural effusions. SHe received a dose of IV Lasix, she started making small amounts of urine, however neurologically she is increasingly more unresponsive, and subsequent blood gases showed worsening hypercapnic respiratory failure, with pH of 7.28, and pCO2 of 82, and this was done on BiPAP support with pressures of 12 and 6 and FiO2 of 30%. BiPAP settings were then changed to 16/6 and FiO2 of 30% and patient was transferred to the intensive care unit. Tatum catheter has been placed, patient being initiated on Lasix drip per nephrology. Repeat urinalysis did not show evidence of infection. Patient has been afebrile. Patient's family member states patient is a DO NOT RESUSCITATE CODE STATUS and she is able to provide proof she has a necessary paperwork at home. For now we will continue supportive treatment, and patient will be monitored closely in the intensive care unit. On 06/23/2019 patient seen in follow-up in the intensive care unit, she remains on BiPAP support with pressures of 16/6, and FiO2 of 30%, she started to open her eyes and respond better, compared to yesterday's exam, yesterday she was on Lasix drip however she became quite hypotensive and anuric, Lasix has been discontinued, and patient was initiated on Levothroid, earlier in the day she had been given some IV fluids. This morning she remains on 0.9 at 20, levo fed is at 5 mics per minute. And patient is starting to make amounts of urine in the order of 60 ML per hour, urine culture came back positive for gram-negative bacilli, final cultures pending, blood culture showed no growth, no fever or chills, we'll initiate the patient on empiric antibiotics in the form of Rocephin. Sodium is 133, potassium is 5.7, chloride is 91, CO2 is 38, B1 is 66, creatinine is 2.3, slightly improved renal profile from yesterday, proBNP was elevated at 21,200, and troponin was negative at admission. US of the kidneys showed no evidence of hydronephrosis Chest x-ray has been reviewed still showing changes compatible with CHF exacerbation hilar prominence consistent with pulmonary arterial hypertension. Hemodynamically seems to be slightly improved, no diarrhea, patient had a solid bowel movement yesterday. On 06/24/2019 patient was seen in follow-up in the intensive care unit, she is clinically much improved, she is awake and alert, she is off the BiPAP support, currently on 4 L of oxygen her pulse ox is 95-98%, afebrile, hemodynamically patient is stable, levo fed has been weaned off since yesterday, patient was restarted back on Lasix drip at 5 mg per hour, she is making urine in the order of 200-370 ML per hour. Denies any respiratory difficulty, lung sounds are essentially clear to auscultation, diminished at the bases, no component of chest pain, today's labs have been reviewed, showing no evidence of leukocytosis, was felt was 5.8, hemoglobin is 8.4, sodium is 134, potassium is 4.1, CO2 is 37, chloride is 93, renal profile is improving, BUN is 52, creatinine is 1.74, urine culture was positive for E. coli which was guerra susceptible, Procan acetone level came back slightly elevated at 0.14, and cortisol level was normal at 21. Patient is tolerating regular diet, no nausea, vomiting or diarrhea. On 06/25/2019 patient seen in follow-up in the intensive care unit, she is awake and alert, she is on BiPAP support, with pressures of 16 and 6, and FiO2 of 40%, she is oriented 3, no altered mentation, answering questions appropriately, denies any respiratory distress. We will switch her to nasal cannula con flores, yesterday patient tolerated nasal cannula trials well, was placed on BiPAP support overnight, she is afebrile, she is on Rocephin for empiric antibiotic coverage evidence of E. coli infection in the urine. Blood cultures have been negative. Today's chest x-ray has been reviewed showing stable diffuse pleural parenchymal changes pleural effusions bilaterally, and bibasilar infiltrates, and diffuse interstitial pattern, changes compatible with CHF. Patient remains on Lasix drip at 10 mg per hour, 0.9 normal saline at a rate of 20 ML per hour. Today's labs have been reviewed. Blood blood cell count 6.3, hemoglobin is 8.9, sodium is 136, potassium is 4.2, chloride is 90, CO2 is 39, BUN is 51 and creatinine is 1.67, renal profile slightly improved. Patient is in negative fluid balance, her weight is down by 6.7 kg last 24 hours, patient has plus lower extremity edema on physical examination, lung sounds are clear On 06/27/2019 patient seen in follow-up on medical surgical floor. She has been transitioned to Airvo from BiPAP support, currently on 45 L/m or FiO2 of 40%, she states she is tolerating it very well, she likes it better than the BiPAP, she is awake and alert, no altered mentation, answering questions appropriately, she states she would like to get up and walk rhonchi, however she has any movement been up in the chair yet, she is generally weak, but no acute com plaints, no fever or chills, hemodynamically she is stable, she remains on Lasix drip currently at 10 mg per hour, she is in negative for thousand and 50 ML over last 24 hours, we'll diffuse crackles, and there is some residual 1+ lower extremity edema, chest x-ray still shows changes consistent with congestive heart failure, with improvement, and bilateral pleural effusions. Today's labs have been reviewed, BNP was done only, there is a worsening of metabolic alkalosis, with CO2 up to 46, and a slight worsening of renal profile, with B UN of 41 and creatinine of 1.51, Diamox was added by nephrology, and we will cut back to IV Lasix to 5 mg per hour. On 06/28/2019 and seeing this patient for a follow-up. I noted the events that occurred over this past few days. The patient has been diuresed aggressively and the patient is improved. This morning she was on 35 L/m of high flow oxygen and I was able to cut her down to 5 L per minute nasal cannula. The patient is still producing excellent urine output. Her Lasix drip is running at 5 mg an hour. Lower extremity edema is also improving. The chest x-ray from yesterday was consistent with CHF with small bilateral pleural effusions. Otherwise, the patient is responding to treatment. BUN is at 45 with a creatinine of 1.5 and a serum bicarb level of 43 and the patient is on Diamox regarding diabetes and just metabolic alkalosis. The patient is also on long-term and to coagulation with Eliquis regarding her atrial fibrillation. She is receiving IV Rocephin regarding an E. coli urinary tract infection. The patient is seen today 06/29/2019 in follow-up on the regular medical floor. She is currently awake and alert in no acute distress. She is down to 4 L high flow nasal cannula. She is improving daily. O2 saturations in the high 90s. She's afebrile. Hemodynamically stable. White count 13.3. Hemoglobin 10.9. Creatinine 1.68. She is currently on Lasix 40 mg every 12 hours. Antibiotics in the form of ceftriaxone. The patient is seen today 06/30/2019 in follow-up on the regular medical floor. She is awake and alert in no acute distress. She is sitting up in a chair at the bedside. She is doing well. She denies any worsening shortness of breath, cough or congestion. She is maintaining O2 saturations up to 100% on 3 L/m per nasal cannula. She's afebrile. Hemodynamically stable. White count 9.2. Hemoglobin 10.4. Creatinine 1.77. Bicarb 40 she remains on Diamox. Oral diuretics now. Objective - Vital Signs Vital signs: Vital Signs Temp 98.2 F 06/30/19 12:44 Pulse 74 06/30/19 12:44 Resp 23 06/30/19 12:44 BP 133/74 06/30/19 12:44 Pulse Ox 100 06/30/19 12:44 Intake & Output 06/29/19 06/30/19 06/30/19 18:59 06:59 18:59 Output Total 700 1200 650 Balance -700 -1200 -650 Weight 82 kg Output: Urine 700 1200 650 Uretheral (Tatum) 650 Other: Voiding Method Indwelling Catheter Indwelling Catheter # Voids 1 # Bowel Movements 1 - Exam GENERAL EXAM: Alert and oriented 3 pleasant 78-year-old female patient, on 3 L/m per nasal cannula. HEAD: Normocephalic/atraumatic. EYES: Normal reaction of pupils, equal size. Conjunctiva pink, sclera white. NOSE: Clear with pink turbinates. THROAT: No erythema or exudates. NECK: No masses, no JVD, no thyroid enlargement, no adenopathy. CHEST: No chest wall deformity. Symmetrical expansion. LUNGS: Equal air entry with diffuse crackles, but no wheeze, rhonchi or dullnes s. CVS: Regular rate and rhythm, normal S1 and S2, no gallops, no murmurs, no rubs ABDOMEN: Soft, nontender. No hepatosplenomegaly, normal bowel sounds, no guarding or rigidity. EXTREMITIES: No clubbing, no edema, no cyanosis, 2+ pulses and upper and lower extremities. MUSCULOSKELETAL: Muscle strength and tone normal. SPINE: No scoliosis or deformity SKIN: No rashes CENTRAL NERVOUS SYSTEM: Alert, oriented 3, and No focal deficits, tone is normal in all 4 extremities. - Labs CBC & Chem 7: 06/30/19 07:06 06/30/19 07:06 Labs: Abnormal Lab Results - Last 24 Hours (Table) 06/29/19 06/29/19 06/30/19 Range/Units 16:41 21:28 07:06 RBC 3.38 L (3.80-5.40) m/uL Hgb 10.4 L (11.4-16.0) gm/dL MCV 100.5 H (80.0-100.0) fL MCHC 30.7 L (31.0-37.0) g/dL Chloride (98-107) mmol/L Carbon Dioxide (22-30) mmol/L BUN (7-17) mg/dL Creatinine (0.52-1.04) mg/dL Glucose (74-99) mg/dL POC Glucose (mg/dL) 264 H 239 H (75-99) mg/dL Magnesium (1.6-2.3) mg/dL 06/30/19 06/30/19 06/30/19 Range/Units 07:06 07:07 12:11 RBC (3.80-5.40) m/uL Hgb (11.4-16.0) gm/dL MCV (80.0-100.0) fL MCHC (31.0-37.0) g/dL Chloride 86 L (98-107) mmol/L Carbon Dioxide 40 H (22-30) mmol/L BUN 60 H (7-17) mg/dL Creatinine 1.77 H (0.52-1.04) mg/dL Glucose 147 H (74-99) mg/dL POC Glucose (mg/dL) 161 H 321 H (75-99) mg/dL Magnesium 2.4 H (1.6-2.3) mg/dL Assessment and Plan Assessment: #1. Acute hypoxic and hypercapnic respiratory failure related to acute exacerbation of CHF, with moderately impaired left ventricle systolic function of 40-45% The patient was in a significant positive fluid overload and the neck fluid balance has been negative over the past several days and the patient is diuresing very well for now. The patient developed some metabolic alkalosis related to diuresis. The patient is oral diuretics. Improved. Down to 3 L nasal cannula. #2. Urinary tract infection related to E. coli which was guerra susceptible, septic shock, recovered #3. Mild periprosthetic regurgitation of the bioprosthetic aortic valve, [id number] mitral regurgitation, and moderate pulmonary hypertension of 57.4 mmHg PA systolic #4. Acute kidney injury #5. Hyperkalemia, improving #6. Diabetes mellitus #7. Recent discharge from subacute rehab following a prolonged hospitalization for severe gastroenteritis, hypovolemic shock, acute kidney injury #8. History of aortic valve disease and previous replacement #9. Secondary pulmonary hypertension #10. Chronic atrial fibrillation ,currently rate is controlled and the patient on long-term and to coagulation with Eliquis. #11. Parkinson's disease #12. Episodes of altered mental status requiring BiPAP support for hypercapnic respiratory failure during previous admission, and neurologic workup was negative #13. Hypothyroidism #14. Hyperlipidemia #15. Type 2 diabetes #16. History of coronary artery disease and previous bypass grafting #17. Metabolic alkalosis likely related to IV diuretics Plan: The patient was seen and evaluated by Dr. Galindo. She is stable from the pulmonary standpoint. Continue to titrate down the FiO2 as tolerated. Discharge planning in place. I, the cosigning physician, performed a history & physical examination of the patient. Lungs sounds with crackles in the bilateral posterior bases. Maintaining good O2 saturations in the 90s on 3 L/m per nasal cannula. I discussed the assessment and plan of care with my nurse practitioner, Kristan Kingsley. I attest to the above note as dictated by her.
[2019-06-30 16:39] LABS: Glucose,Whole Blood 269 mg/dL (75-99)
[2019-06-30 17:54] LABS: Hemoglobin A1C 6.1 % (4.0-6.0)
[2019-06-30] MEDS: SODIUM CHLORIDE 0.9% 1,000 ML IV SCH (19:09)
--- NOTE | 2019-06-30 19:47 | PN ---
PROGRESS NOTE Patient is seen for followup for acute kidney injury, mainly cardiorenal. Patient was maintained on Lasix drip, which was eventually switched to IV push Lasix, and now her Lasix is changed to p.o. She is comfortable. She is awake. She is not in any acute distress. Blood pressure this morning was 133/74, heart rate of 74 per minute. Patient is afebrile. EXAMINATION OF THE HEART: S1 and S2. EXAMINATION OF LUNGS: Bilateral breath sounds are heard. ABDOMEN: Soft, non-tender. Examination of lower extremities shows no significant edema. LABS: Sodium 138, potassium 3.7, BUN of 60, serum creatinine 1.7. ASSESSMENT: 1. Acute kidney injury, cardiorenal. Serum creatinine is slightly higher secondary to recent diuresis. Lasix has been decreased and switched to p.o. I will decrease it further to 40 mg p.o. daily from b.i.d. 2. Metabolic alkalosis secondary to diuretics, currently improved. Maintained on Diamox. 3. Congestive heart failure, systolic. 4. Cardiomyopathy; ejection fraction of about 40%. 5. Urinary tract infection with Escherichia coli. 6. Generalized debility. PLAN: Continue with antibiotics. Decrease Lasix to 40 mg p.o. daily. Repeat labs in a.m. Follow up as outpatient with repeat labs to be done as outpatient. MMODL / IJN: [id number] /
[2019-06-30 21:46] LABS: Glucose,Whole Blood 212 mg/dL (75-99)
[2019-06-30] MEDS: INSULIN DETEMIR (LEVEMIR) 100 UNIT/ML SYR SQ SCH (22:05)
[2019-06-30] MEDS: ATORVASTATIN 10 MG TAB PO SCH (22:06)
[2019-07-01] MEDS: LEVOTHYROXINE 112 MCG TAB PO SCH (06:10)
[2019-07-01 06:56] LABS: Glucose,Whole Blood 202 mg/dL (75-99)
[2019-07-01 07:36] VITALS: BP 121/61; PULSE 80; RESP 16; TEMP 98
[2019-07-01] MEDS: CARBIDOPA-LEVODOPA 25-100 MG 1 EACH TAB PO SCH (08:00)
[2019-07-01] MEDS: METOPROLOL TARTRATE 12.5 MG TAB PO SCH (08:00)
[2019-07-01] MEDS: APIXABAN 2.5 MG TABLET PO SCH (08:00)
[2019-07-01] MEDS: INSULIN ASPART (NovoLOG) 100 UNIT/ML VIAL SQ SCH ×2 (08:00→08:01)
[2019-07-01] MEDS: PANTOPRAZOLE 40 MG TABLET PO SCH (08:00)
[2019-07-01] MEDS: ASPIRIN 81 MG PO SCH (08:00)
[2019-07-01] MEDS: acetaZOLAMIDE 250 MG TAB PO SCH (08:00)
[2019-07-01] MEDS: HYDROPHILIC CREAM 180 GM TUBE TOPICAL SCH (08:02)
[2019-07-01] MEDS ORDERED: FUROSEMIDE 40 MG TAB PO SCH (09:00)
--- NOTE | 2019-07-01 10:21 | P.DS ---
Providers Date of admission: 06/21/19 14:28 Expected date of discharge: 07/01/19 Attending physician: Favio Nickerson MD Consults: 06/21/19 14:03 Consult Physician Routine Consulting Provider: Jannette Spicer Consult Reason/Comments: lakhwinder Do you want consulting provider notified?: Yes 06/21/19 14:16 Consult Physician Routine Consulting Provider: Bay Christianson Consult Reason/Comments: dyspnea Do you want consulting provider notified?: Yes 06/21/19 14:17 Consult Physician Routine Consulting Provider: Can Michaels Consult Reason/Comments: heart failure Do you want consulting provider notified?: Yes Primary care physician: Deandre Bartholomew Hospital Course: Discharge Diagnosis: Acute exacerbation of congestive heart failure, systolic with ejection fraction 40-45% Metabolic alkalosis likely secondary to forced diuresis Acute hypoxic on chronic respiratory failure secondary to above, improved to baseline E. coli urinary tract infection with septic shock, resolved Hypokalemia Hyperkalemia Acute kidney injury Past metabolic encephalopathy secondary to hypercapnia Leukocytosis, stress induced, resolved Chronic atrial fibrillation Diabetes mellitus type 2 Chronic debility Anemia, undetermined etiology Prosthetic aortic valve Secondary pulmonary hypertension Parkinson's disease Hypothyroidism Dyslipidemia Coronary artery disease status post bypass grafting Hospital Course: Patient is a 78-year-old female patient of Dr. Bartholomew with a past medical history of A. fib on anticoagulation, diabetes, dyslipidemia, hypertension, Parkinson's disease, congestive heart failure, and multiple other comorbid conditions who initially presented to the emergency department with complaints of dyspnea and weakness. Apparently her home pulse ox was in between the 70s to 80s. Patient had recently been in a subacute rehab facility after suffering from gastroenteritis and was recently discharged home. In the ER she was noted to have acute kidney injury and chronic kidney disease, mildly elevated lactic acid, an elevated BNP at 21,200. She was admitted secondary to acute on chronic congestive heart failure with hyperkalemia. Cardiology, pulmonary, and nephrology was consulted. She was admitted to the cardiac unit. Echo showed EF 40-45%. Renal ultrasound consistent with acute renal failure. On 06/22 pulmonary was called to the cardiac stepdown unit secondary to abnormal blood gases. Secondary to her hypercapnia she was started on BiPAP. She was determined to be a DO NOT RESUSCITATE. She was transferred to the intensive care unit for closer monitoring. She did have some improvement in her potassium. She continued to required BiPAP. She required to be initiated on Levophed secondary to persistent hypotension. She was started on a Lasix drip to help with anuria and continued fluid overload in conjunction with hypotension. She was found to have urine cultures positive for gram-negative bacilli. These ultimately resulted as pansensitive E. coli and she was maintained on Rocephin until she completed IV antibiotic therapy. By 06/24 she was off of BiPAP support and levo. However she was unable to tolerate being of Bipap. She been restarted back on her Lasix drip. Her Lasix drip was uptitrated. On 06/27 she was able to be transitioned to [facility] and was transferred to the medical floor. She was able to come of lasix drip on 06/28. Case was discussed with daughter who agreed to palliative care. She was doing better by the morning of 06/30 and was awake and sitting up in the chair. She continued to progress well and was determined stable for discharge home. She was taken off metformin due to elevated Cr her A1C was 6.1 so she will be left only on glipizide. She will check blood sugars twice daily. Hospital bed ordered. She will have palliative care on discharge for symptom management. She will have home health. She has an appointment with Dr. bartholomew next, she will also follow with Dr. Spicer and Dr. Gao in 2-4 weeks. Repeat BMP in 3-5 days. Patient seen and examined at bedside. No chest pain, no shortness of breath, no nausea, feeling well. Vital signs reviewed and stable. General: non toxic, no distress, appears at stated age Derm: warm, dry Head: atraumatic, normocephalic, symmetric Eyes: EOMI, no lid lag, anicteric sclera Mouth: no lip lesion, mucus membranes moist Cardiovascular: S1S2 reg, no murmur, positive posterior tibial pulse bilateral, Lungs: decreased bs bilateral bases, no rhonchi, no rales , no accessory muscle use Abdominal: soft, nontender to palpation, no guarding, no appreciable organomegaly Ext: no gross muscle atrophy, 1+ edema, no contractures Neuro: CN II-XI grossly intact, no focal neuro deficits Psych: Alert, oriented, appropriate affect A total of 35 minutes of time were spent preparing this complex discharge summary . Patient Condition at Discharge: Stable Plan - Discharge Summary Discharge Rx Participant: No New Discharge Prescriptions: New acetaZOLAMIDE [Diamox] 250 mg PO BID-W/MEALS #60 tab Furosemide [Lasix] 40 mg PO DAILY #30 tab Metoprolol Tartrate [Lopressor] 12.5 mg PO BID #60 tab Hydrophilic Cream [Triad Cream] 1 applic TOPICAL DAILY applic Potassium Chloride ER [K-Dur 10] 10 meq PO DAILY #20 tab Continue Simvastatin [Zocor] 20 mg PO HS Carbidopa-Levodopa 25-100 mg [Sinemet 25-100 mg] 1 tab PO QID Aspirin 81 mg PO DAILY chew Apixaban [Eliquis] 5 mg PO BID #60 tab glipiZIDE [Glucotrol] 5 mg PO -[facility] Levothyroxine Sodium [Synthroid] 112 mcg PO DAILY@0630 #0 tab Loperamide [Imodium] 2 mg PO QID PRN #30 capsule PRN Reason: Diarrhea Discontinued Amiodarone [Cordarone] 200 mg PO DAILY Metoprolol Tartrate [Lopressor] 25 mg PO BID Furosemide [Lasix] 40 mg PO DAILY tab Potassium Chloride ER [K-Dur 20] 20 meq PO DAILY #30 tab Gabapentin [Neurontin] 300 mg PO BID #60 cap metFORMIN HCL 1,000 mg PO BID Discharge Medication List Simvastatin [Zocor] 20 mg PO HS 09/29/16 [History] Carbidopa-Levodopa 25-100 mg [Sinemet 25-100 mg] 1 tab PO QID 01/05/19 [History] Apixaban [Eliquis] 5 mg PO BID #60 tab 01/09/19 [Rx] Aspirin 81 mg PO DAILY chew 01/09/19 [Rx] glipiZIDE [Glucotrol] 5 mg PO AC-BRKFST 05/18/19 [History] Levothyroxine Sodium [Synthroid] 112 mcg PO DAILY@0630 #0 tab 05/26/19 [Rx] Loperamide [Imodium] 2 mg PO QID PRN #30 capsule 05/27/19 [Rx] Furosemide [Lasix] 40 mg PO DAILY #30 tab 07/01/19 [Rx] Hydrophilic Cream [Triad Cream] 1 applic TOPICAL DAILY applic 07/01/19 [Rx] Metoprolol Tartrate [Lopressor] 12.5 mg PO BID #60 tab 07/01/19 [Rx] Potassium Chloride ER [K-Dur 10] 10 meq PO DAILY #20 tab 07/01/19 [Rx] acetaZOLAMIDE [Diamox] 250 mg PO BID-W/MEALS #60 tab 07/01/19 [Rx] Follow up Appointment(s)/Referral(s): [facility] [NON-STAFF] - As Needed (home care and palliative care) [facility] [NON-STAFF] - As Needed (if not healing please call for an appointment) Deandre Bartholomew MD [Primary Care Provider] - 1-2 days Raj Ceja [NON-STAFF] - As Needed (Hospital bed) Jannette Spicer MD [STAFF PHYSICIAN] - 2 Weeks Akira Gao MD [STAFF PHYSICIAN] - 4 Weeks Ambulatory/Diagnostic Orders: Basic Metabolic Panel [LAB.AMB] Time Frame: 3 Days, Location: None Selected Magnesium [LAB.AMB] Time Frame: 3 Days, Location: None Selected Activity/Diet/Wound Care/Special Instructions: Activity: as tolerated Diet: Heart healthy, carb consistent, 2 gram sodium Special Instructions: Discussed with patient if ulceration continues to be nonhealing make an appointment with the wound care center for outpatient wound care. Discharge Disposition: HOME WITH HOME HEALTH SERVICES
--- NOTE | 2019-07-01 11:41 | P.PN ---
Subjective Patient is seen in follow-up for acute kidney injury. Renal function has been fairly stable the last few days. Creatinine 1.77 as of yesterday. Denies chest pain or shortness of breath. Urine output is good. Vital signs are stable. General: The patient appeared well nourished and normally developed. HEENT: Head exam is unremarkable. Neck is without jugular venous distension. LUNGS: Breath sounds decreased. HEART: Rate and Rhythm are regular. First and second heart sounds normal. No murmurs, rubs or gallops. ABDOMEN: Bowel sounds present. EXTREMITITES: Trace edema. Objective - Vital Signs Vital signs: Vital Signs Temp 98 F 07/01/19 07:00 Pulse 80 07/01/19 08:20 Resp 16 07/01/19 08:20 BP 121/61 07/01/19 07:00 Pulse Ox 97 07/01/19 07:00 Intake & Output 06/30/19 07/01/19 07/01/19 18:59 06:59 18:59 Output Total 950 Balance -950 Output: Urine 950 Uretheral (Tatum) 650 Other: Voiding Method Toilet # Voids 1 1 # Bowel Movements 1 - Labs CBC & Chem 7: 06/30/19 07:06 06/30/19 07:06 Labs: Abnormal Lab Results - Last 24 Hours (Table) 06/30/19 06/30/19 06/30/19 Range/Units 07:06 12:11 16:22 POC Glucose (mg/dL) 321 H 269 H (75-99) mg/dL Hemoglobin A1c 6.1 H (4.0-6.0) % 06/30/19 07/01/19 Range/Units 21:35 06:45 POC Glucose (mg/dL) 212 H 202 H (75-99) mg/dL Hemoglobin A1c (4.0-6.0) % Assessment and Plan Plan: Assessment: 1. Acute kidney injury secondary to ATN secondary to hypotension and cardiorenal syndrome. Renal function now stable. Creatinine 1.77 as of yesterday. No evidence of urinary retention. No evidence of hydronephrosis noted on kidney ultrasound. 2. Hyperkalemia secondary to acute kidney injury and potassium supplementation. Improved. 3. Acute mixed hypercapnic and hypoxic respiratory failure. Better. 4. Diabetes mellitus. 5. Volume overload. Improved with diuresis. 6. Acute on chronic systolic CHF with ejection fraction of 40-45% with mild to moderate mitral regurgitation and moderate pulmonary hypertension. 7. UTI with urine culture positive for E. coli, s/p antibiotics. Plan: Maintain Lasix 40 mg once daily. Avoid nephrotoxins. Repeat BMP and magnesium level 3-4 days postdischarge. Follow-up outpatient in the next 1-2 weeks.
--- NOTE | 2019-07-06 08:44 | CDI ---
Documentation Clarification Form Date: 07/06/2019 8:29:29 AM From: Sharron Mcdowell Phone: If you have a question about this query, please contact Nadine Willard, Radiological Metallurgist at [phone] between 8am and 5pm. Admit Date: 06/21/2019 2:28:00 PM Patient Name: Violet Thorne Visit Number: [id number] Discharge Date: 07/01/2019 11:35:00 AM ATTENTION: The Clinical Documentation Specialists (CDI) and [facility] Coding Staff appreciate your assistance in clarifying documentation. Please respond to the clarification below the line at the bottom and electronically sign. The CDI & [facility] Coding staff will review the response and follow-up if needed. Please note: Queries are made part of the Legal Health Record. If you have any questions, please contact the author of this message via ITS. Dr. Henriquez, Conflicting documentation has been found in the medical record: Several PN's and cardiac consult document patient has acute exacerbation of diastolic CHF and several PN's and DCS document patient has acute exacerbation of systolic CHF. Please clarify if patient has diastolic or systolic CHF or both. History/Risk Factors: CHF HTN, septic shock, CKD ATN cardiomyopathy, prosthetic aortic valve Clinical Indicators: BNP 64410 Treatment: IV Lasix In your opinion, what is the most clinically appropriate diagnosis for this patient? Acute and chronic diastolic CHF Acute and chronic systolic CHF Acute and chronic diastolic and systolic CHF Other explanation of clinical findings Unable to determine (no explanation for clinical findings) acute on chronic diastolic and systolic chf MTDD
== END 2019-07-01 11:35 | disposition home health service (06) | DRG 291 ==
LOC: EC 10:51 → 3SCARD 14:28 → 2SICU 06-22 10:54 → 4SSUR 06-25 22:37
PROVIDERS: ADMIT Internal Medicine; ATTEND Internal Medicine
PROC: 5A09357 Assistance with Respiratory Ventilation, Less than 24 Consecutive Hours, Continuous Positive Airway Pressure (ICD-10-PCS; principal; 2019-06-21)
DX: I13.0 Hypertensive heart and chronic kidney disease with heart failure and stage 1 through stage 4 chronic kidney disease, or unspecified chronic kidney disease (principal); A41.51 Sepsis due to Escherichia coli [E. coli]; J96.21 Acute and chronic respiratory failure with hypoxia; J96.22 Acute and chronic respiratory failure with hypercapnia; N17.0 Acute kidney failure with tubular necrosis; R65.21 Severe sepsis with septic shock; I50.43 Acute on chronic combined systolic (congestive) and diastolic (congestive) heart failure; E87.1 Hypo-osmolality and hyponatremia; E87.4 Mixed disorder of acid-base balance; I48.19 Other persistent atrial fibrillation; I48.92 Unspecified atrial flutter; N39.0 Urinary tract infection, site not specified; D64.9 Anemia, unspecified; E03.9 Hypothyroidism, unspecified; E11.22 Type 2 diabetes mellitus with diabetic chronic kidney disease; E11.40 Type 2 diabetes mellitus with diabetic neuropathy, unspecified; E11.65 Type 2 diabetes mellitus with hyperglycemia; E78.5 Hyperlipidemia, unspecified; E87.5 Hyperkalemia; E87.6 Hypokalemia; E87.8 Other disorders of electrolyte and fluid balance, not elsewhere classified; G20 Parkinson's disease; I08.0 Rheumatic disorders of both mitral and aortic valves; I25.10 Atherosclerotic heart disease of native coronary artery without angina pectoris; I27.21 Secondary pulmonary arterial hypertension; I42.9 Cardiomyopathy, unspecified; K52.9 Noninfective gastroenteritis and colitis, unspecified; M19.90 Unspecified osteoarthritis, unspecified site; N18.9 Chronic kidney disease, unspecified; T50.1X5A Adverse effect of loop [high-ceiling] diuretics, initial encounter; T50.2X5A Adverse effect of carbonic-anhydrase inhibitors, benzothiadiazides and other diuretics, initial encounter; Z51.5 Encounter for palliative care; Z66 Do not resuscitate; Z79.01 Long term (current) use of anticoagulants; Z79.82 Long term (current) use of aspirin; Z79.84 Long term (current) use of oral hypoglycemic drugs; Z79.890 Hormone replacement therapy; Z79.899 Other long term (current) drug therapy; Z82.49 Family history of ischemic heart disease and other diseases of the circulatory system; Z87.440 Personal history of urinary (tract) infections; Z95.1 Presence of aortocoronary bypass graft; Z95.3 Presence of xenogenic heart valve; Z99.81 Dependence on supplemental oxygen; Z98.42 Cataract extraction status, left eye; Z98.41 Cataract extraction status, right eye; Z87.01 Personal history of pneumonia (recurrent); Z90.49 Acquired absence of other specified parts of digestive tract; Z80.9 Family history of malignant neoplasm, unspecified; L89.152 Pressure ulcer of sacral region, stage 2
CPT/HCPCS: 36415; 36600; 71045; 71046; 76770; 80048; 80053; 81001; 82140; 82533; 82803; 82805; 83036; 83605; 83735; 83880; 84132; 84145; 84484; 85025; 85027; 85610; 85730; 87040; 87077; 87086; 87186; 93005; 93308; 94640; 94660; 94760; 96361; 96365; 99285